=== PATIENT | female | born 1945 | race Caucasian/White ===

== ENCOUNTER → 2019-10-07 15:10 | Outpatient (CLI) | payer MEDICARE, OTHER, SELFPAY ==
[2019-10-07 14:43] VITALS: BMI 42.3
[2019-10-07 16:56] LABS: Absolute Lymphocyte Count 1.97 X10^3/uL (0.83-4.51); Absolute Neutrophil Count 4.1 X10^3/uL (2.0-7.7); Basophil# 0.05 X10^3/uL; Basophil% 0.7 % (0-1); Eosinophil# 0.23 X10^3/uL; Eosinophils% 3.4 % (0-5); Hematocrit 45.6 % (37-47); Hemoglobin 14.7 g/dL (12.0-15.0); Lymphocyte # 1.97 X10^3/ul (4.0); Lymphocyte % 28.9 % (19-41); Mean Corp Hgb Conc 32.2 g/dL (32-36); Mean Corpuscular Hgb 29.1 pg (27.0-32.0); Mean Corpuscular Volume 90.1 fL (81-99); Mean Platelet Vol. 11.5 fl (6.2-12.0); Monocyte# 0.51 X10^3/uL; Monocyte% 7.5 % (0-10); NRBC Flagged by Analyzer 0 % (0-5); Neutrophil # 4.05 X10^3/uL (2.7-7.7); Neutrophil % 59.4 % (47-70); Platelet Count 274 K/mm3 (150-450); RBC Distribution Width CV 12.4 % (11.6-14.6); RBC Distribution Width SD 40.4 fl (35.1-43.9); Red Blood Count 5.06 M/mm3 (4.2-5.4); White Blood Count 6.8 K/mm3 (4.4-11.0)
[2019-10-07 17:13] LABS: Hemoglobin A1c 7.5 % (3.8-5.6)
[2019-10-07 17:17] LABS: ALB/GLOB Ratio 0.9 RATIO (0.9-2.4); AST(SGOT) 20 U/L (15-37); Alanine Aminotransfer ALT/SGPT 30 U/L (13-56); Albumin, Serum 3.5 g/dL (3.2-5.0); Alkaline Phosphatase 111 U/L (45-117); Anion Gap 5 (5-15); BUN 16 mg/dL (7-18); BUN/Creat Ratio 15.7 RATIO (10-20); Calcium,Total 9.7 mg/dL (8.5-10.1); Chloride 98 mmol/L (98-107); Cholesterol 259 mg/dL (200); Creatinine, Serum 1.02 mg/dL (0.55-1.02); EST Glomerular Filtration Rate 56 mL/min (>60); Est Glom Filt Rate - Afr Amer 68 mL/min (>60); Globulin 3.9 g/dL (2.2-4.2); Glucose 244 mg/dL (74-106); High Density Lipoprotein 58 mg/dL; Potassium 4.2 mmol/L (3.5-5.1); Protein, Total 7.4 g/dL (6.4-8.2); Sodium Level 139 mmol/L (136-145); Triglycerides 428 mg/dL
[2019-10-08 08:47] LABS: SARS-COV-2 TOTAL ABS Nonreactive (Nonreactive)
== END ==
PROVIDERS: PCP Family Medicine; Referring Provider Family Medicine; Visit Provider Family Medicine
DX: J20.9 Acute bronchitis, unspecified (principal); R73.9 Hyperglycemia, unspecified; E78.1 Pure hyperglyceridemia; Z20.828 Contact with and (suspected) exposure to other viral communicable diseases
CPT/HCPCS: 36415; 80053; 80061; 83036; 84439; 85025; 86769

== ENCOUNTER → 2019-11-23 14:59 | Outpatient (CLI) | payer MEDICARE, OTHER, SELFPAY ==
[2019-11-23 14:49] VITALS: BMI 42.3
[2019-11-23 17:12] LABS: Glucose 143 mg/dL (74-106)
[2019-11-23 19:18] LABS: Hemoglobin A1c 6.6 % (3.8-5.6)
== END ==
PROVIDERS: PCP Family Medicine; Referring Provider Family Medicine; Visit Provider Family Medicine
DX: E11.9 Type 2 diabetes mellitus without complications (principal); J20.9 Acute bronchitis, unspecified
CPT/HCPCS: 36415; 82947; 83036

== ENCOUNTER 2021-05-09 14:52 | Outpatient (CLI) | payer MEDICARE, OTHER, SELFPAY ==
[2021-05-09 16:52] LABS: AST(SGOT) 19 U/L (15-37); Alanine Aminotransfer ALT/SGPT 30 U/L (13-56); Alkaline Phosphatase 128 U/L (45-117); Anion Gap 4 (5-15); BUN 15 mg/dL (7-18); BUN/Creat Ratio 19.9 RATIO (10-20); Calcium,Total 10.2 mg/dL (8.5-10.1); Chloride 99 mmol/L (98-107); Creatinine, Serum 0.75 mg/dL (0.55-1.02); EST Glomerular Filtration Rate 79 mL/min (>60); Est Glom Filt Rate - Afr Amer 96 mL/min (>60); Globulin 3.9 g/dL (2.2-4.2); Glucose 129 mg/dL (74-106); Hemoglobin A1c 6.7 % (3.8-5.6); Potassium 4.5 mmol/L (3.5-5.1); Protein, Total 7.9 g/dL (6.4-8.2); Sodium Level 136 mmol/L (136-145)
== END 2021-05-09 23:59 | disposition home or self-care (01) ==
LOC: BIMLAB 14:54
PROVIDERS: PCP Family Medicine; Visit Provider Family Medicine
DX: E11.9 Type 2 diabetes mellitus without complications (principal); I10 Essential (primary) hypertension
CPT/HCPCS: 36415; 80053; 83036

== ENCOUNTER → 2022-05-28 | Outpatient (CLI) | payer MEDICARE, OTHER, SELFPAY ==
[2022-05-28 16:46] LABS: Absolute Lymphocyte Count 2.21 X10^3/uL (0.83-4.51); Absolute Neutrophil Count 5.4 X10^3/uL (2.0-7.7); Basophil# 0.07 X10^3/uL; Basophil% 0.8 % (0-1); Eosinophil# 0.24 X10^3/uL; Eosinophils% 2.7 % (0-5); Hematocrit 47.4 % (37-47); Hemoglobin 15.6 g/dL (12.0-15.0); Lymphocyte # 2.21 X10^3/ul (0.83-4.51); Lymphocyte % 25.2 % (19-41); Mean Corp Hgb Conc 32.9 g/dL (32-36); Mean Corpuscular Hgb 29.1 pg (27.0-32.0); Mean Corpuscular Volume 88.4 fL (81-99); Mean Platelet Vol. 11.6 fl (6.2-12.0); Monocyte% 9.1 % (0-10); NRBC Flagged by Analyzer 0 % (0-5); Neutrophil # 5.41 X10^3/uL (2.7-7.7); Neutrophil % 61.6 % (47-70); Platelet Count 308 K/mm3 (150-450); RBC Distribution Width CV 12.4 % (11.6-14.6); RBC Distribution Width SD 40.3 fl (35.1-43.9); Red Blood Count 5.36 M/mm3 (4.2-5.4); White Blood Count 8.8 K/mm3 (4.4-11.0)
[2022-05-28 17:27] LABS: AST(SGOT) 22 U/L (15-37); Alanine Aminotransfer ALT/SGPT 27 U/L (13-56); Albumin, Serum 3.7 g/dL (3.2-5.0); Alkaline Phosphatase 115 U/L (45-117); Anion Gap 7 (5-15); BUN 24 mg/dL (7-18); Chloride 101 mmol/L (98-107); Cholesterol 255 mg/dL (200); Creatinine, Serum 0.77 mg/dL (0.55-1.02); EST Glomerular Filtration Rate 77 mL/min (>60); Est Glom Filt Rate - Afr Amer 93 mL/min (>60); Globulin 3.8 g/dL (2.2-4.2); Glucose 180 mg/dL (74-106); High Density Lipoprotein 55 mg/dL; Protein, Total 7.5 g/dL (6.4-8.2); Sodium Level 137 mmol/L (136-145); Triglycerides 356 mg/dL; Very Low Density Lipoprotein 71 mg/dL (5-40)
== END | disposition home or self-care (01) ==
LOC: BIMLAB 15:53
PROVIDERS: PCP Family Medicine; Referring Provider Family Medicine; Visit Provider Family Medicine
DX: H10.022 Other mucopurulent conjunctivitis, left eye (principal); E11.9 Type 2 diabetes mellitus without complications; I10 Essential (primary) hypertension
CPT/HCPCS: 36415; 80053; 80061; 85025

== ENCOUNTER → 2022-08-14 | Outpatient (CLI) | payer MEDICARE, OTHER, SELFPAY ==
[2022-08-14 13:58] LABS: INR Fingerstick 2.8; Prothrombin Time Fingerstick 30.4 SEC (11.7-14.9)
== END | disposition home or self-care (01) ==
PROVIDERS: PCP Family Medicine; Referring Provider Nurse Practitioner Family; Visit Provider Nurse Practitioner Family
DX: I26.99 Other pulmonary embolism without acute cor pulmonale (principal)
CPT/HCPCS: 36416; 85610

== ENCOUNTER 2022-08-23 13:43 | Outpatient (RCR) | payer MEDICARE, OTHER, SELFPAY ==
[2022-08-23 14:03] LABS: INR Fingerstick 6.1; Prothrombin Time Fingerstick 62.2 SEC (11.7-14.9)
[2022-08-23 15:32] LABS: Prothrombin Time (Protime)PT. 45.8 SECONDS (11.7-14.9)
[2022-08-23 16:41] LABS: International Normalized Ratio 4.8
== END 2022-08-23 18:00 | disposition home or self-care (01) ==
LOC: LAB 13:43
PROVIDERS: PCP Family Medicine; Referring Provider Nurse Practitioner Family; Visit Provider Nurse Practitioner Family
DX: I26.99 Other pulmonary embolism without acute cor pulmonale (principal)
CPT/HCPCS: 36416; 85610

== ENCOUNTER 2022-09-16 12:41 | Outpatient (RCR) | payer MEDICARE, OTHER, SELFPAY ==
[2022-08-26 15:16] LABS: Prothrombin Time (Protime)PT. 40.2 SECONDS (11.7-14.9)
[2022-08-26 15:53] LABS: International Normalized Ratio 4.1
[2022-08-29 11:36] LABS: INR Fingerstick 4.6
[2022-09-02 13:06] LABS: International Normalized Ratio 1.2; Prothrombin Time (Protime)PT. 15.3 SECONDS (11.7-14.9)
[2022-09-09 11:15] LABS: INR Fingerstick 2.1; Prothrombin Time Fingerstick 23.5 SEC (11.7-14.9)
[2022-09-16 12:47] LABS: INR Fingerstick 2.4; Prothrombin Time Fingerstick 26.1 SEC (11.7-14.9)
== END 2022-09-23 18:00 | disposition home or self-care (01) ==
LOC: LAB 12:41
PROVIDERS: PCP Family Medicine; Referring Provider Nurse Practitioner Family; Visit Provider Nurse Practitioner Family
DX: I26.99 Other pulmonary embolism without acute cor pulmonale (principal)
CPT/HCPCS: 36415; 36416; 85610

== ENCOUNTER 2022-10-14 12:06 | Outpatient (RCR) | payer MEDICARE, OTHER, SELFPAY ==
[2022-10-07 10:25] LABS: International Normalized Ratio 1.9; Prothrombin Time (Protime)PT. 22.4 SECONDS (11.7-14.9)
[2022-10-14 12:18] LABS: INR Fingerstick 2.3; Prothrombin Time Fingerstick 25.5 SEC (11.7-14.9)
== END 2022-10-14 18:00 | disposition home or self-care (01) ==
LOC: LAB 12:06
PROVIDERS: Nurse Practitioner Family; PCP Family Medicine; Referring Provider Family Medicine; Visit Provider Family Medicine
DX: I26.99 Other pulmonary embolism without acute cor pulmonale (principal)
CPT/HCPCS: 36415; 36416; 85610

== ENCOUNTER 2022-11-18 14:10 | Outpatient (RCR) | payer MEDICARE, OTHER, SELFPAY ==
[2022-10-30 13:39] LABS: International Normalized Ratio 1.9; Prothrombin Time (Protime)PT. 21.8 SECONDS (11.7-14.9)
[2022-11-18 14:33] LABS: INR Fingerstick 2.4
== END 2022-11-18 18:00 | disposition home or self-care (01) ==
LOC: LAB 14:10
PROVIDERS: PCP Family Medicine; Referring Provider Family Medicine; Visit Provider Family Medicine
DX: Z79.01 Long term (current) use of anticoagulants (principal); I26.99 Other pulmonary embolism without acute cor pulmonale
CPT/HCPCS: 36415; 36416; 85610

== ENCOUNTER 2022-12-16 14:55 | Outpatient (RCR) | payer MEDICARE, OTHER, SELFPAY ==
[2022-12-16 15:14] LABS: INR Fingerstick 1.9; Prothrombin Time Fingerstick 20.7 SEC (11.7-14.9)
== END 2022-12-16 18:00 | disposition home or self-care (01) ==
LOC: LAB 14:55
PROVIDERS: PCP Family Medicine; Referring Provider Family Medicine; Visit Provider Family Medicine
DX: Z79.01 Long term (current) use of anticoagulants (principal)
CPT/HCPCS: 36416; 85610

== ENCOUNTER → 2022-12-31 | Outpatient (CLI) | payer MEDICARE, OTHER, SELFPAY ==
[2022-12-31 16:46] LABS: Cholesterol 266 mg/dL (200); High Density Lipoprotein 68 mg/dL; Triglycerides 337 mg/dL; Very Low Density Lipoprotein 67 mg/dL (5-40)
[2022-12-31 16:46] LABS: International Normalized Ratio 1.6
[2022-12-31 16:50] LABS: Hemoglobin A1c 7.2 % (3.8-5.6)
== END | disposition home or self-care (01) ==
LOC: BIMLAB 15:17
PROVIDERS: PCP Family Medicine; Referring Provider Family Medicine; Visit Provider Family Medicine
DX: E11.9 Type 2 diabetes mellitus without complications (principal); I26.99 Other pulmonary embolism without acute cor pulmonale; I10 Essential (primary) hypertension
CPT/HCPCS: 36415; 80061; 83036; 85610

== ENCOUNTER 2023-02-19 14:07 | Outpatient (RCR) | payer MEDICARE, OTHER, SELFPAY ==
[2023-01-27 13:08] LABS: INR Fingerstick 1.9; Prothrombin Time Fingerstick 21.1 SEC (11.7-14.9)
[2023-02-10 13:29] LABS: INR Fingerstick 1.8
[2023-02-19 14:13] LABS: INR Fingerstick 2.8; Prothrombin Time Fingerstick 30.5 SEC (11.7-14.9)
== END 2023-02-23 18:00 | disposition home or self-care (01) ==
LOC: LAB 14:07
PROVIDERS: PCP Family Medicine; Referring Provider Family Medicine; Visit Provider Family Medicine
DX: Z79.01 Long term (current) use of anticoagulants (principal)
CPT/HCPCS: 36416; 85610

== ENCOUNTER 2023-03-19 15:39 | Outpatient (RCR) | payer MEDICARE, OTHER, SELFPAY ==
[2023-03-19 16:59] LABS: Prothrombin Time (Protime)PT. 12.9 SECONDS (11.7-14.9)
== END 2023-03-19 18:00 | disposition home or self-care (01) ==
LOC: LAB 15:39
PROVIDERS: PCP Family Medicine; Referring Provider Family Medicine; Visit Provider Family Medicine
DX: Z79.01 Long term (current) use of anticoagulants (principal)
CPT/HCPCS: 36415; 36416; 85610

== ENCOUNTER 2023-04-07 08:38 | Outpatient (RCR) | payer MEDICARE, OTHER, SELFPAY ==
[2023-04-07 08:46] LABS: INR Fingerstick 1.9; Prothrombin Time Fingerstick 20.1 SEC (11.7-14.9)
== END 2023-04-24 18:00 | disposition home or self-care (01) ==
LOC: LAB 08:38
PROVIDERS: PCP Family Medicine; Referring Provider Family Medicine; Visit Provider Family Medicine
DX: Z79.01 Long term (current) use of anticoagulants (principal)
CPT/HCPCS: 36416; 85610

== ENCOUNTER 2023-05-19 14:05 | Outpatient (RCR) | payer MEDICARE, OTHER, SELFPAY ==
[2023-05-21 09:32] LABS: INR Fingerstick 2.3
== END 2023-05-24 18:00 | disposition home or self-care (01) ==
LOC: LAB 14:05
PROVIDERS: PCP Family Medicine; Referring Provider Family Medicine; Visit Provider Family Medicine
DX: Z79.01 Long term (current) use of anticoagulants (principal)
CPT/HCPCS: 36416; 85610

== ENCOUNTER → 2023-06-17 | Outpatient (CLI) | payer MEDICARE, OTHER, SELFPAY | END | disposition home or self-care (01) | LOC: PSN 12:20 | PROVIDERS: PCP Family Medicine; Referring Provider Nurse Practitioner; Visit Provider Nurse Practitioner | DX: R05.3 Chronic cough (principal) | CPT/HCPCS: 94060; 94726; 94729 ==

== ENCOUNTER 2023-07-02 12:11 | Outpatient (RCR) | payer MEDICARE, OTHER, SELFPAY ==
[2023-07-02 12:32] LABS: INR Fingerstick 2.3; Prothrombin Time Fingerstick 23.4 SEC (11.7-14.9)
== END 2023-07-02 18:00 | disposition home or self-care (01) ==
LOC: LAB 12:11
PROVIDERS: PCP Family Medicine; Referring Provider Family Medicine; Visit Provider Family Medicine
DX: Z79.01 Long term (current) use of anticoagulants (principal)
CPT/HCPCS: 36416; 85610

== ENCOUNTER 2023-07-31 15:50 | Outpatient (RCR) | payer MEDICARE, OTHER, SELFPAY ==
[2023-07-31 16:18] LABS: INR Fingerstick 2.4; Prothrombin Time Fingerstick 24.7 SEC (11.7-14.9)
== END 2023-07-31 18:00 | disposition home or self-care (01) ==
LOC: LAB 15:50
PROVIDERS: PCP Family Medicine; Referring Provider Family Medicine; Visit Provider Family Medicine
DX: Z79.01 Long term (current) use of anticoagulants (principal)
CPT/HCPCS: 36416; 85610

== ENCOUNTER 2023-09-04 13:28 | Outpatient (RCR) | payer MEDICARE, OTHER, SELFPAY ==
[2023-09-08 06:08] LABS: INR Fingerstick 2.2; Prothrombin Time Fingerstick 22.6 SEC (11.7-14.9)
== END 2023-09-24 18:00 | disposition home or self-care (01) ==
LOC: LAB 13:28
PROVIDERS: PCP Family Medicine; Referring Provider Family Medicine; Visit Provider Family Medicine
DX: Z79.01 Long term (current) use of anticoagulants (principal)
CPT/HCPCS: 36416; 85610

== ENCOUNTER → 2023-09-08 | Outpatient (CLI) | payer MEDICARE, OTHER, SELFPAY ==
--- NOTE | 2023-09-08 15:45 | RAD_ITS ---
STUDY: X-RAY CHEST REASON FOR EXAM: Female, 77 years old. chronic cough TECHNIQUE: PA and lateral views of the chest. COMPARISON: None. FINDINGS: The lungs are clear and expanded. There is no demonstrated pleural abnormality. Normal size heart. Normal mediastinum and katerine. Normal visualized pulmonary arteries. Normal visualized aortic arch and descending thoracic aorta. Normal visualized thoracic spine. Normal visualized ribs, clavicles, and shoulders. There is no demonstrated abnormality of the visualized soft tissue structures of the upper abdomen. RAD/Chest PA and Lateral IMPRESSION: Normal x-ray examination of the chest. Electronically Signed: Allen Cabral MD at 18:20 EDT ,
[2023-09-08 16:45] LABS: ALB/GLOB Ratio 0.7 RATIO (0.9-2.4); AST(SGOT) 13 U/L (15-37); Alanine Aminotransfer ALT/SGPT 20 U/L (13-56); Albumin, Serum 2.9 g/dL (3.2-5.0); Alkaline Phosphatase 131 U/L (45-117); Anion Gap 7 (5-15); BUN 14 mg/dL (7-18); BUN/Creat Ratio 23.1 RATIO (10-20); Calcium,Total 9.2 mg/dL (8.5-10.1); Chloride 104 mmol/L (98-107); Creatinine, Serum 0.61 mg/dL (0.55-1.02); EST Glomerular Filtration Rate 101 mL/min (>60); Est Glom Filt Rate - Afr Amer 122 mL/min (>60); Glucose 177 mg/dL (74-106); Potassium 3.4 mmol/L (3.5-5.1); Protein, Total 6.9 g/dL (6.4-8.2); Sodium Level 139 mmol/L (136-145)
== END | disposition home or self-care (01) ==
LOC: LAB 15:19
PROVIDERS: PCP Family Medicine; Referring Provider Family Medicine; Visit Provider Family Medicine
DX: R05.3 Chronic cough (principal)
CPT/HCPCS: 36415; 71046; 80053

== ENCOUNTER 2023-10-28 15:03 | Outpatient (RCR) | payer MEDICARE, OTHER, SELFPAY ==
[2023-10-28 15:17] LABS: INR Fingerstick 2.8; Prothrombin Time Fingerstick 28.7 SEC (11.7-14.9)
== END 2023-10-28 18:00 | disposition home or self-care (01) ==
LOC: LAB 15:03
PROVIDERS: PCP Family Medicine; Referring Provider Family Medicine; Visit Provider Family Medicine
DX: Z79.01 Long term (current) use of anticoagulants (principal)
CPT/HCPCS: 36416; 85610

== ENCOUNTER 2023-12-15 12:44 | Outpatient (RCR) | payer MEDICARE, OTHER, SELFPAY ==
[2023-11-25 11:32] LABS: INR Fingerstick 2.9; Prothrombin Time Fingerstick 29.3 SEC (11.7-14.9)
[2023-12-25 12:07] LABS: INR Fingerstick 2.7; Prothrombin Time Fingerstick 28.4 SEC (11.7-14.9)
== END 2023-12-15 18:00 | disposition home or self-care (01) ==
LOC: LAB 12:44
PROVIDERS: PCP Family Medicine; Referring Provider Family Medicine; Visit Provider Family Medicine
DX: Z79.01 Long term (current) use of anticoagulants (principal); I26.99 Other pulmonary embolism without acute cor pulmonale
CPT/HCPCS: 36416; 85610

== ENCOUNTER 2024-02-03 13:47 | Outpatient (RCR) | payer MEDICARE, OTHER, SELFPAY ==
[2024-02-03 14:14] LABS: INR Fingerstick 1.1; Prothrombin Time Fingerstick 13.1 SEC (11.7-14.9)
== END 2024-02-03 18:00 | disposition home or self-care (01) ==
LOC: LAB 13:47
PROVIDERS: PCP Family Medicine; Referring Provider Family Medicine; Visit Provider Family Medicine
DX: Z79.01 Long term (current) use of anticoagulants (principal)

== ENCOUNTER → 2024-03-02 | Outpatient (CLI) | payer MEDICARE, OTHER, SELFPAY ==
[2024-03-02 15:21] LABS: Absolute Lymphocyte Count 1.86 X10^3/uL (0.83-4.51); Absolute Neutrophil Count 5.5 X10^3/uL (2.0-7.7); Basophil# 0.06 X10^3/uL; Basophil% 0.7 % (0-1); Eosinophil# 0.16 X10^3/uL; Eosinophils% 1.9 % (0-5); Hemoglobin 9.3 g/dL (12.0-15.0); Lymphocyte # 1.86 X10^3/ul (0.83-4.51); Lymphocyte % 22.6 % (19-41); Mean Corp Hgb Conc 29.1 g/dL (32-36); Mean Corpuscular Hgb 21.7 pg (27.0-32.0); Mean Corpuscular Volume 74.6 fL (81-99); Mean Platelet Vol. 10.4 fl (6.2-12.0); Monocyte# 0.57 X10^3/uL; Monocyte% 6.9 % (0-10); NRBC Flagged by Analyzer 0 % (0-5); Neutrophil # 5.54 X10^3/uL (2.7-7.7); Neutrophil % 67.5 % (47-70); Platelet Count 556 K/mm3 (150-450); RBC Distribution Width CV 16.4 % (11.6-14.6); Red Blood Count 4.29 M/mm3 (4.2-5.4); White Blood Count 8.2 K/mm3 (4.4-11.0)
[2024-03-02 15:48] LABS: ALB/GLOB Ratio 0.6 RATIO (0.9-2.4); AST(SGOT) 18 U/L (15-37); Alanine Aminotransfer ALT/SGPT 20 U/L (13-56); Albumin, Serum 2.5 g/dL (3.2-5.0); Alkaline Phosphatase 156 U/L (45-117); Anion Gap 6 (5-15); BUN 16 mg/dL (7-18); Calcium,Total 8.8 mg/dL (8.5-10.1); Chloride 102 mmol/L (98-107); EST Glomerular Filtration Rate 86 mL/min (>60); Est Glom Filt Rate - Afr Amer 105 mL/min (>60); Globulin 4.3 g/dL (2.2-4.2); Glucose 165 mg/dL (74-106); Potassium 3.7 mmol/L (3.5-5.1); Protein, Total 6.8 g/dL (6.4-8.2); Sodium Level 138 mmol/L (136-145)
== END | disposition home or self-care (01) ==
LOC: BIMLAB 13:45
PROVIDERS: PCP Family Medicine; Referring Provider Family Medicine; Visit Provider Family Medicine
DX: R05.3 Chronic cough (principal); D64.9 Anemia, unspecified
CPT/HCPCS: 36415; 80053; 85025

== ENCOUNTER 2024-06-11 20:48 | Emergency (ER) | payer MEDICARE, OTHER, SELFPAY ==
[2024-06-11 20:49] VITALS: BP 129/70; PULSE 130; RESP 18; TEMP 37.3; O2SAT 93
[2024-06-11 20:53] VITALS: BP 129/70; PULSE 130; RESP 18; TEMP 37.3; O2SAT 93
[2024-06-11 21:04] VITALS: BMI 32.7
[2024-06-11 21:53] VITALS: BP 107/65; PULSE 101; RESP 18; TEMP 36.8; O2SAT 93
--- NOTE | 2024-06-11 22:08 | CT_ITS ---
PROCEDURE: ABDOMEN/PELVIS W IV CONT ONLY 06/11/2024 REASON FOR EXAM: FLANK PAIN / ? PYELONEPHRITIS TECHNIQUE: Abdomen and pelvis CT with intravenous contrast. Coronal and Sagittal reconstruction series were provided. PATIENT PREPARATION: Per protocol ORAL CONTRAST TYPE: None. AMOUNT: mL CONTRAST: Isovue 370 VOLUME: 96 mL Not Provided Gauge IV One or more dose reduction techniques were used (e.g., Automated exposure control, adjustment of the mA and/or kV according to patient size, use of iterative reconstruction technique. RADIATION DOSE SUMMARY: CTDlvol: 46 mGy DLP: 1629 mGycm COMPARISON: None FINDINGS: Lung bases: Suspected filling defects within the left lower lobe pulmonary arteries, concerning for PE. In addition there is evidence of a left lower lobe consolidation with an ill-defined low attenuating lesion, underlying nodule can not be excluded. CTA of the chest is recommended for further characterization. Liver: Normal size. No mass. Gallbladder: Distended gallbladder, no radiographic evidence of stones. Spleen: Normal size. Pancreas: Tiny parenchymal calcifications, likely sequela of chronic pancreatitis. Adrenals: Unremarkable Kidneys: Right kidney demonstrates multiple parenchymal low attenuating lesions, some of which are too small to characterize, the largest is a lower pole cyst with a Hounsfield unit of 17, consistent with benign cysts. No follow-up is recommended. Mild bilateral perinephric stranding. The left kidney demonstrates multiple tiny exophytic low attenuating lesions, too small to characterize. No evidence of hydronephrosis or nephrolithiasis bilaterally. Bladder: Decompressed urinary bladder. Reproductive Organs: Normal uterine size and contour. Ovaries are unremarkable. Bowel: Evaluation of the bowel loops are limited due to lack of oral contrast. The stomach is decompressed limiting evaluation. No inflammatory changes of the small bowel. Focal irregular wall thickening of the cecum and ascending colon, concerning for malignancy. Alternatively this may represent focal colitis. Appendix: The appendix is not clearly visualized. Lymph nodes: Prominent retroperitoneal lymph nodes. Prominent right lower quadrant lymph nodes. Vasculature: Atherosclerotic calcification of the abdominal aorta and branches. Peritoneum / Retroperitoneum: No free air or free fluid. Soft tissue: Small fat containing bilateral inguinal hernias. Bones: Unremarkable CT/Abdomen/Pelvis W IV Cont ONLY IMPRESSION: Suspected pulmonary embolism of the left lower lobe pulmonary artery as describ ed above, recommend CTA of the chest for further characterization. Left lower lobe consolidation with an ill-defined low attenuating lesion, this may be secondary to infection versus atelectasis. Underlying nodule can not be excluded. Focal irregular wall thickening of the cecum and ascending colon with luminal n arrowing, suggestive of neoplasm. Barium enema and colonoscopy is recommended for further characterization. In addition GI co nsultation is recommended. Alternatively this may also represent colitis. No radiographic evidence of nephrolithiasis or pyelonephritis. Red Alert: Findings are suspected left lower lobe pulmonary artery and suspecte d neoplasm of the cecum and ascending colon. The critical information above was relayed directly by me by telephone to Rodriguez Braxton on 06/11/2024 at 11:38 pm with readback verification. Recommend CTA of the chest and colonoscopy/barium enema. Reading Location: [facility]
--- NOTE | 2024-06-11 22:08 | EKG12_ITS ---
Test Reason : FLANK PAIN Blood Pressure : */* mmHG Vent. Rate : 103 BPM Atrial Rate : 103 BPM P-R Int : 148 ms QRS Dur : 90 ms QT Int : 340 ms P-R-T Axes : 17 -6 47 degrees QTcB Int : 445 ms Sinus tachycardia Inferior infarct , age undetermined Abnormal ECG Confirmed by KORY THAKUR MD ([id number]), fan mail editor NADER KIM ([id number]) on 06/14/2024 8:45:03 AM Referred By: Confirmed By: KORY THAKUR MD
[2024-06-11] MEDS: 0.9% Normal Saline (1000mL) 1,000 ML 999 ML IV (22:19)
[2024-06-11 22:22] LABS: Absolute Lymphocyte Count 1.45 X10^3/uL (0.83-4.51); Absolute Neutrophil Count 12.8 X10^3/uL (2.0-7.7); Basophil# 0.06 X10^3/uL; Basophil% 0.4 % (0-1); Eosinophil# 0.12 X10^3/uL; Eosinophils% 0.7 % (0-5); Hematocrit 40.6 % (37-47); Hemoglobin 13.8 g/dL (12.0-15.0); Lymphocyte # 1.45 X10^3/ul (0.83-4.51); Lymphocyte % 9.1 % (19-41); Mean Corpuscular Hgb 28.6 pg (27.0-32.0); Mean Corpuscular Volume 84.2 fL (81-99); Mean Platelet Vol. 10.8 fl (6.2-12.0); Monocyte# 1.49 X10^3/uL; Monocyte% 9.3 % (0-10); NRBC Flagged by Analyzer 0 % (0-5); Neutrophil # 12.82 X10^3/uL (2.7-7.7); Platelet Count 363 K/mm3 (150-450); RBC Distribution Width CV 13.3 % (11.6-14.6); RBC Distribution Width SD 39.6 fl (35.1-43.9); Red Blood Count 4.82 M/mm3 (4.2-5.4)
[2024-06-11 22:48] VITALS: BP 107/65
[2024-06-11 22:48] LABS: Anion Gap 14 (5-15); BUN 16 mg/dL (4-19); BUN/Creat Ratio 22.6 RATIO (10-20); Calcium,Total 9.1 mg/dL (7.6-11.0); Carbon Dioxide 21.5 mmol/L (21.0-32.0); Chloride 97 mmol/L (98-108); EST Glomerular Filtration Rate 88 (>60); Estimated Creatinine Clearance 56.29 ml/min (50-250); Glucose 169 mg/dL (70-99); Magnesium 1.8 mg/dL (1.5-2.2); Potassium 3.3 mmol/L (3.3-5.1); Sodium Level 133 mmol/L (133-145)
[2024-06-11 22:52] VITALS: BP 107/65; PULSE 98; RESP 16; TEMP 36.8; O2SAT 92
--- NOTE | 2024-06-11 23:05 | RAD_ITS ---
PROCEDURE: CHEST 1 VIEW (PORTABLE) 06/11/2024 REASON FOR EXAM: COUGH TECHNIQUE: Frontal view of the chest. COMPARISON: None FINDINGS: Hardware: None Heart: The heart size is normal. Lungs: Left basilar consolidation. Bones: The bones are unremarkable. Other: RAD/Chest 1 View (Portable) IMPRESSION: Left basilar consolidation. CTA of the chest is recommended. Reading Location: [facility]
[2024-06-11 23:09] LABS: Lactic Acid 1.1 mmol/L (0.0-2.0)
[2024-06-11 23:24] LABS: Red Blood Cells-Urine 0 SEEN /hpf (0-5)
[2024-06-11 23:31] LABS: Color, Urine Yellow (Yellow); Glucose, Dipstick Normal (Normal); Ketone-Dipstick Negative (Negative); Leukocyte Esterase-Dipstick 25 /ul (Negative); Nitrite-Dipstick Negative (Negative); Occult Blood-Urine 10 /ul (Negative); Protein-Dipstick 30 mg/dl (Negative); Urine Bilirubin Dipstick 1 mg/dL (Negative); Urine Clarity Clear (Clear); Urine Urobilinogen 4 mg/dl (Normal)
[2024-06-12] VITALS: BP 122/68; PULSE 104; RESP 19; TEMP 36.9; O2SAT 98
[2024-06-12 00:04] LABS: Bacteria 2+ /hpf (None Seen); Mucous, Urine RARE /hpf (<or=2+); Squamous Epithelial Cells - UA 25-50 SEEN /hpf (5-10); White Blood Cells 5-10 SEEN /hpf (0-5)
[2024-06-12 00:41] LABS: International Normalized Ratio 1.4
[2024-06-12 00:42] LABS: Partial Thromboplast Time 38.9 Seconds (24.1-36.2)
[2024-06-12 00:58] VITALS: BP 105/62; PULSE 98; RESP 18; TEMP 37; O2SAT 93
[2024-06-12 01:00] VITALS: BP 109/61; PULSE 98; RESP 18; TEMP 37; O2SAT 94
[2024-06-12 02:00] VITALS: BP 110/66; PULSE 91; RESP 19; TEMP 37.1; O2SAT 97
[2024-06-12 03:00] VITALS: BP 114/60; PULSE 108; RESP 16; TEMP 37.1; O2SAT 98
--- NOTE | 2024-06-12 03:15 | EDS_ITS ---
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 She states over the pa st 4 to 5 days she has had generalized weakness. She lives with her grandson and grandson reports is been difficult for her to get up and ambulate on her own. She states she went to an outside hospital and the other day and was diagnosed with a urinary tract infection. She states she took the antibiotic as directed but there has been no improvement and with this comes in for evaluation. Patient does note there has been intermittent left-sided flank/back pain as well without history or report of trauma [facility] Medical History (Updated 06/13/24 @ 17:[address] Rodriguez Braxton, ) Pneumonia Osteoarthritis High triglycerides High cholesterol Arthritis Home Medications ?Medication ?Instructions ?Recorded ?Last Taken ?Type blood pressure monitor #1 ea 06/02/23 Unknown Rx venlafaxine 37.5 mg tablet 37.5 mg PO QDAY #90 tabs Unknown Rx atorvastatin 40 mg tablet See Rx Instructions .Route 0 08/19/23 Unknown Rx .COMPLEX #90 tabs chlordiazepoxide HCl 5 mg capsule 10 mg (2 x 5 mg) PO Q12H PRN 12/24/23 Unknown Rx anxiety #60 caps apixaban 2.5 mg tablet (Eliquis) 2.5 mg PO BID #180 ta bs 02/04/24 Unknown Rx amlodipine 5 mg tablet 5 mg PO DAILY #90 tabs 03/23 Unknown Rx betamethasone dipropionate 0.05 % 1 applic topical EVAN LY PRN rash 03/23/24 Unknown Rx topical cream #45 grams ferrous sulfate 325 mg (65 mg 650 mg PO QDAY 03/23/24 Unknown History iron) tablet (Feosol) handicap placard #1 ea 05/26/24 Unknown Rx cephalexin 250 mg capsule 250 mg PO 4X/DAY 06/11/24 Un known History meclizine 25 mg tablet 25 mg PO BID PRN dizziness 0 06/12/24 Unknown History Allergy/AdvReac Type Severity Reaction Status Date / Time prednisone Allergy Unknown Rash Verified 06/11/24 20:49 diphenhydramine (From Allergy Rash Verified 06/11/24 20:49 Benadryl) Family History Mother Arthritis Brother Myocardial infarction Father Heart disease Surgical History History of bilateral knee replacement History of umbilical hernia repair History of tonsillectomy Social History Smoking Status: Never smoker alcohol intake: never substance use type: does not use what type of physical activity do you participate in: swimming ROS ROS ED Constitutional Constitutional ED: Reports other Details: Positive generalized weakness ; Denies chills or fever(s) Eyes Eyes: Denies change in vision ENT ENT ED: Denies sore throat Cardiovascular Cardiovascular: Reports racing heartbeat; Denies chest pain Respiratory/Chest Respiratory/Chest: Denies cough or dyspnea Gastrointestinal Gastrointestinal: Denies abdominal pain, diarrhea, nausea or vomiting Genitourinary Genitourinary ED: Reports urinary frequency; Denies dysuria Musculoskeletal Musculoskeletal: Reports back pain Integumentary Denies rash Neurologic Neurologic: Denies headache(s) Hematologic/Lymphatic Hematologic/Lymphatic: Reports easy bleeding and easy bruising EXAM Physical Exam Const Vital Signs: 06/11/24 20:49 06/11/24 20:53 06/11/24 21:53 Temperature 99.2 F H 99.2 F H 98.3 F Temperature Source Temporal Oral Oral Pulse Rate 130 H 130 H 101 H Respiratory Rate 18 18 18 Blood Pressure 129/70 H 129/70 H 107/65 Blood Pressure Mean 89 89 79 Pulse Ox 93 93 93 Oxygen Delivery Method Room Air Room Air Room Air 06/11/24 22:48 06/11/24 22:52 06/12/24 00:00 Temperature 98.3 F 98.4 F Temperature Source Oral Oral Pulse Rate 98 104 H Respiratory Rate 16 19 H Blood Pressure 107/65 107/65 122/68 H Blood Pressure Mean 79 79 86 Pulse Ox 92 98 Oxygen Delivery Method Room Air Room Air 06/12/24 00:58 06/12/24 01:00 06/12/24 02:00 Temperature 98.6 F 98.6 F 98.7 F Temperature Source Oral Oral Pulse Rate 98 98 91 Respiratory Rate 18 18 19 H Blood Pressure 105/62 109/61 110/66 Blood Pressure Mean 76 77 80 Pulse Ox 93 94 97 Oxygen Delivery Method Room Air Room Air 06/12/24 03:00 Temperature 98.7 F Temperature Source Oral Pulse Rate 108 H Respiratory Rate 16 Blood Pressure 114/60 Blood Pressure Mean 78 Pulse Ox 98 Oxygen Delivery Method Room Air Positive well nourished and well developed General Appearance ED: well developed; Negative for pallor HEENT Reports dry mucous membranes HEENT Narrative: Normocephalic atraumatic No tongue or lip swelling no oral lesions no airway edema or compromise No signs of infection noted in the posterior pharynx Mucous membranes are mildly dry and tacky Mouth ED: Yes dry mucous membranes Mouth: dry mucous membranes Eyes PERRL and EOMs intact bilaterally General Eye ED: Negative for scleral icterus Neck supple Neck Narrative: No nuchal rigidity or meningeal signs Resp normal respiratory effort and clear to auscultation bilaterally Resp Narrative: Breath sounds are slight diminished throughout but overall clear to auscultation without signs of respiratory distress Cardio regular rhythm Rate: tachycardic and other Other Details: Tachycardic rate with regular rhythm Radial and carotid pulses are equal and symmetric GI normal to inspection, nondistended, normoactive bowel sounds, non-tender, non- distended and no masses GI Narrative: Abdomen is soft nontender and nondistended with normal active bowel sounds. No voluntary guarding or rigidity or pulsatile mass. No increased tympany or fluid wave noted. Auscultation: normoactive bowel sounds Palpation: soft Back/Spine Back/Spine Narrative: There is mild left CVA tenderness present No bony deformity or step-off of the thoracic or lumbar spine no midline tenderness to palpation No saddle anesthesia, negative straight leg raise, no clonus or Babinski, patellar reflexes are plus 1 out of 4 bilaterally No overlying soft tissue changes to suggest trauma or infection Extremity normal to inspection Neuro oriented x3, CN's II-XII intact bilaterally and no sensory deficits noted Sensorium / Orientation: alert Motor Exam: strength 5/5 throughout Psych mental status grossly normal Skin no rashes or lesions noted and No skin turgor normal Skin Narrative: Skin turgor slightly increased otherwise skin exam is normal. General Skin Exam: Negative for jaundice or pallor MDM MDM MDM Narrative Medical decision making narrative: Patient arrived to the ER tachycardic but otherwise with stable vitals. She reported generalized weakness with vague left-sided back/flank pain. There is been no loss of bowel or bladder control or IV drug use going against cauda equina or epidural abscess. There is no overlying soft tissue changes to suggest cellulitis or shingles or abscess or potential fracture or trauma. She may have pyelonephritis with her recent diagnosis of UTI from the outside hospital. With her tachycardia there is concern for acute kidney injury causing her weakness as well. The patient had physical exam findings of dehydration and therefore was given 1 L of normal saline. After receiving this her heart rate normalized. Her physical exam showed leukocytosis at 16 but there was no elevation to her lactic acid value and no signs of KOLBY. I did obtain a CT scan of the abdomen and pelvis to rule out signs of pyelonephritis or kidney stone or atypical intestinal infection as a cause of her left-sided pain. CT scan showed no sign of stone or intestinal infection but did document changes to the right colon concerning for malignancy and there was question of a potentially nonvisualized left lower lobe PE. She does have a history of this and is on Eliquis so concern for a secondary PE is low but a CTA was then added based on this concern. The CTA revealed no PE but signs of potential lobe collapse or mass. I had the patient evaluated by the hospitalist based on her findings and weakness and there was discussion about a potential admission. The patient states she is known about the potential malignancy in her chest and intestine for multiple months and has decided not to undergo further investigation of it. She was able to ambulate to and from the bathroom with a steady gait under her own power. There was still discussions of admission secondary to her dehydration changes but symptoms have improved after 1 L of fluid and there is no signs of KOLBY. Therefore it was felt that if she was admitted she most likely will stay in the hospital for 1 day and be discharged with report of needing outpatient rehab but not inpatient. This plan of care was discussed with the patient and family and at this time they state as she is able to walk under her own power they will take her home and return if symptoms continue to progress despite the hydration and antibiotics. History & Record Review Discussion w/independent historian: Patient and Family Lab Data Attestation: I reviewed the patient's lab results. Labs: Laboratory Results - last 24 hr 06/11/24 06/11/24 06/11/24 00:10 21:03 22:15 WBC 16.0 H RBC 4.82 Hgb 13.8 Hct 40.6 MCV 84.2 MCH 28.6 MCHC 34.0 RDW Std Deviation 39.6 RDW Coeff of [place] 13.3 Plt Count 363 MPV 10.8 Immature Gran % (Auto) 0.500 Neut % (Auto) 80.0 H Lymph % (Auto) 9.1 L [place] % (Auto) 9.3 Eos % (Auto) 0.7 Baso % (Auto) 0.4 Absolute Neuts (auto) 12.8 H Absolute Lymphs (auto) 1.45 Nucleated RBC % 0 PT 17.0 H INR 1.4 APTT 38.9 H Sodium 133 Potassium 3.3 Chloride 97 L Carbon Dioxide 21.5 Anion Gap 14 BUN 16 Creatinine 0.70 Estim Creat Clear Calc 56.29 Est GFR (MDRD) Non-Af 88 BUN/Creatinine Ratio 22.6 H Glucose 169 H Lactic Acid 1.1 Calcium 9.1 Magnesium 1.8 Urine Color Urine Clarity Urine pH Ur Specific [place] Urine Protein Urine Glucose (UA) Urine Ketones Urine Occult Blood Urine Nitrite Urine Bilirubin Urine Urobilinogen Ur Leukocyte Esterase Urine RBC Urine WBC Ur Squamous Epith Cells Urine Bacteria Urine Mucus 06/11/24 23:20 WBC RBC Hgb Hct MCV MCH MCHC RDW Std Deviation RDW Coeff of [place] Plt Count MPV Immature Gran % (Auto) Neut % (Auto) Lymph % (Auto) [place] % (Auto) Eos % (Auto) Baso % (Auto) Absolute Neuts (auto) Absolute Lymphs (auto) Nucleated RBC % PT INR APTT Sodium Potassium Chloride Carbon Dioxide Anion Gap BUN Creatinine Estim Creat Clear Calc Est GFR (MDRD) Non-Af BUN/Creatinine Ratio Glucose Lactic Acid Calcium Magnesium Urine Color Yellow Urine Clarity Clear Urine pH 5.0 Ur Specific [place] 1.010 Urine Protein 30 H Urine Glucose (UA) Normal Urine Ketones Negative Urine Occult Blood 10 H Urine Nitrite Negative Urine Bilirubin 1 H Urine Urobilinogen 4 H Ur Leukocyte Esterase 25 H Urine RBC 0 SEEN Urine WBC 5-10 SEEN Ur Squamous Epith Cells 25-50 SEEN Urine Bacteria 2+ Urine Mucus RARE Radiography Diagnostic Testing: Clinical Impression(s) from Imaging Studies Chest CTA 06/12/24 23:46 IMPRESSION: No evidence of filling defect to suggest pulmonary embolism. Densely consolidated large portion of the left lower lobe as above with airway obstruction/opacification concerning for possible inflammatory/infectious process or neoplastic process not excluded. Clinically correlate, recommend pulmonary consult and requires further workup. Expansile lytic lesion of the right acromion with areas of cortical disruption for example axial 232 concerning for neoplastic process and associated pathologic fracture. Subjacent areas of right clavicle lytic appearing foci axial 233. Mildly enlarged subcarinal lymph node and possibly mildly large left hilar nodes. May be reactive with neoplastic process not excluded, follow-up to resolution. Reading Location: [facility] Management Discussion w/another healthcare provider: Hospitalist Discharge Plan Triage Chief Complaint: Flank Pain ED Provider: Rodriguez Braxton Dx/Rx/DC Orders Clinical Impression: Generalized weakness, Dehydration, Hypertension, Current use of terminal superintendent anticoagulation Instructions: Dehydration, ED Weakness Uncertain Cause Prescriptions: No Action (DME) blood pressure monitor Kit See Rx Instructions .ROUTE .MEDSUPPLY Qty: 1 0RF Rx Instructions: As directed atorvastatin 40 mg tablet See Rx Instructions .ROUTE .COMPLEX Qty: 90 2RF Dose Instruction: TAKE 1 TABLET DAILY Rx Instructions: TAKE 1 TABLET DAILY Eliquis 2.5 mg tablet 2.5 mg PO BID Qty: 180 1RF ferrous sulfate [Feosol] 325 mg (65 mg iron) tablet 650 mg PO QDAY amlodipine 5 mg tablet 5 mg PO DAILY Qty: 90 1RF betamethasone dipropionate 0.05 % cream 1 applic TOPICAL DAILY PRN (Reason: rash) Qty: 45 1RF cephalexin 250 mg capsule 250 mg PO 4X/DAY meclizine 25 mg tablet 25 mg PO BID PRN (Reason: dizziness) venlafaxine 37.5 mg tablet 37.5 mg PO QDAY Qty: 90 1RF chlordiazepoxide HCl 5 mg capsule 10 mg PO Q12H PRN (Reason: anxiety) Qty: 60 0RF (DME) handicap placard See Rx Instructions .Route .MEDSUPPLY Qty: 1 0RF Rx Instructions: Duration 5 years, difficulty with ambualation. Primary Care Provider: Cole Shipley Referrals: Cole Shipley, DO [Primary Care Provider] - Activity Restrictions/Additional Instructions: Please keep yourself well-hydrated but if symptoms persist or worsen return to the ER for repeat evaluation. While urine culture is still pending please continue the antibiotics given to you from the outside hospital. Print Language: Korean Disposition Disposition: Home, Self Care Discharge Date/Time: 06/12/24 03:29
--- NOTE | 2024-06-12 23:46 | CT_ITS ---
PROCEDURE: CTA CHEST W/WO CONTRAST 06/12/2024 REASON FOR EXAM: ? PE TECHNIQUE: CTA imaging of the chest with intravenous contrast. Coronal and Sagittal reconstruction series were provided. Maximum intensity projection (MIPs) Volume rendering and CONTRAST: 100 cc Isovue 370 IV One or more dose reduction techniques were used (e.g., Automated exposure control, adjustment of the mA and/or kV according to patient size, use of iterative reconstruction technique). RADIATION DOSE SUMMARY: CTDlvol: 12.19 mGy DLP: 413.15 mGycm COMPARISON: None available FINDINGS: No evidence of filling defect to suggest pulmonary embolism. Ectatic thoracic aorta appears within limits. Standard three-vessel arch appears within limits. Mild appearing coronary calcification noted. No pericardial or pleural effusion. Mildly enlarged subcarinal node and possibly mildly large left hilar nodes. A couple bilateral low-density cystic appearing thyroid foci largest right lobe measuring 1.8 cm coronal 125. The left lower lobe posterior basal and portion of the anteriomedial basal segmental airways appear occluded. There is collapse and dense consolidation of large portion of the left lower lobe with some aeration seen at the superior segment and portions of the anteromedial basal segments. Widening of the pulmonary vessels at the left inferior hilum between area of consolidation for example axial 118 difficult to exclude an underlying parenchymal mass. The lungs otherwise appear clear. Limited images upper abdomen suggestion of possible intrarenal stone partially imaged upper pole left kidney and possibly partially imaged cortical cyst at the upper portion of the right kidney axial image 1. Expansile lytic lesion of the right acromion with areas of cortical disruption for example axial 232 concerning for neoplastic process and associated pathologic fracture. Subsequent areas of right clavicle lytic appearing foci axial 233. CT/CTA Chest W/WO Contrast IMPRESSION: No evidence of filling defect to suggest pulmonary embolism. Densely consolidated large portion of the left lower lobe as above with airway obstruction/opacification concerning for possible inflammatory/infectious process or neoplastic process not excluded. Clinically correlate, recommend pulmonary consult and requires further workup. Expansile lytic lesion of the right acromion with areas of cortical disruption for example axial 232 concerning for neoplastic process and associated pathologic fracture. Subjacent areas of right clavicle lytic appearing foci axial 233. Mildly enlarged subcarinal lymph node and possibly mildly large left hilar node s. May be reactive with neoplastic process not excluded, follow-up to resolution. Reading Location: [id number]
== END 2024-06-12 03:29 | disposition home or self-care (01) ==
PROVIDERS: Emergency Provider Emergency Medicine; PCP Family Medicine; Visit Provider Emergency Medicine
DX: R53.1 Weakness (principal); E86.0 Dehydration; I10 Essential (primary) hypertension; Z86.718 Personal history of other venous thrombosis and embolism; E78.00 Pure hypercholesterolemia, unspecified; Z79.01 Long term (current) use of anticoagulants; R10.9 Unspecified abdominal pain; M54.9 Dorsalgia, unspecified; D72.829 Elevated white blood cell count, unspecified; R35.0 Frequency of micturition
CPT/HCPCS: 96360; 96361; 99282; 36415; 71045; 71275; 74177; 80048; 81001; 83605; 83735; 85025; 85610; 85730; 87040; 87077; 87086; 87088; 87186; 93005; Q9967; A4216

== ENCOUNTER 2024-06-13 19:45 | Inpatient (IN) | payer MEDICARE, OTHER, SELFPAY ==
[2024-06-13 19:47] VITALS: BP 140/85; PULSE 131; RESP 18; TEMP 37; O2SAT 93
[2024-06-13] MEDS: 0.9% Normal Saline (1000mL) 1,000 ML 999 ML IV ×2 (20:49→22:20)
[2024-06-13 21:04] LABS: Absolute Lymphocyte Count 0.72 X10^3/uL (0.83-4.51); Absolute Neutrophil Count 14.7 X10^3/uL (2.0-7.7); Basophil# 0.05 X10^3/uL; Basophil% 0.3 % (0-1); Eosinophil# 0.07 X10^3/uL; Eosinophils% 0.4 % (0-5); Hematocrit 37.5 % (37-47); Hemoglobin 12.9 g/dL (12.0-15.0); Lymphocyte # 0.72 X10^3/ul (0.83-4.51); Lymphocyte % 4.3 % (19-41); Mean Corp Hgb Conc 34.4 g/dL (32-36); Mean Corpuscular Hgb 28.7 pg (27.0-32.0); Mean Corpuscular Volume 83.3 fL (81-99); Monocyte# 1.17 X10^3/uL; NRBC Flagged by Analyzer 0 % (0-5); Neutrophil # 14.65 X10^3/uL (2.7-7.7); Neutrophil % 87.5 % (47-70); Platelet Count 368 K/mm3 (150-450); RBC Distribution Width CV 12.9 % (11.6-14.6); RBC Distribution Width SD 37.9 fl (35.1-43.9); White Blood Count 16.7 K/mm3 (4.4-11.0)
[2024-06-13 21:46] VITALS: BP 147/87; PULSE 120; RESP 23; O2SAT 93
[2024-06-13 21:46] LABS: Magnesium 1.7 mg/dL (1.5-2.2)
[2024-06-13 22:02] LABS: Anion Gap 13 (5-15); BUN 13 mg/dL (4-19); BUN/Creat Ratio 21.6 RATIO (10-20); Calcium,Total 9.3 mg/dL (7.6-11.0); Carbon Dioxide 24.1 mmol/L (21.0-32.0); Chloride 96 mmol/L (98-108); Creatinine, Serum 0.61 mg/dL (0.70-1.20); EST Glomerular Filtration Rate 91 (>60); Glucose 173 mg/dL (70-99); Potassium 3.3 mmol/L (3.3-5.1); Sodium Level 133 mmol/L (133-145)
--- NOTE | 2024-06-13 22:09 | HP.PCM.HOS_ITS ---
HPI - General General Date of Admission: 06/13/24 Date of Service: 06/13/24 Chief Complaint: Worsening weakness HPI Narrative SCOTT BAIRD, is a 78 F who presented to [facility] ED on 06/13/2024 with worsening weakness. Patient was seen in the ED on 06/12 for similar concern. She was also reporting intermittent left-sided flank pain at that time. Was noted to have WBC count of 16, neutrophil predominant but CBC and BMP were otherwise unremarkable. UA was mildly infectious appearing. She was tachycardic to the 130s and had low-grade fever to 99.2F, but tachycardia resolved with IV fluid resuscitation. CT abdomen pelvis with IV contrast showed no pyelonephritis, did show focal irregular wall thickening of the cecum and ascending colon concerning for malignancy versus focal colitis, prominent retroperitoneal lymph nodes and right lower quadrant lymph nodes, and suspected filling defects in the left lower lobe pulmonary arteries concerning for PE with left lower lobe consolidation. CTA chest showed no PE, did show densely consolidated large portion of left lower lobe with airway obstruction/opacification concerning for possible infectious/inflammatory process versus neoplastic process; also showed an expansile lytic lesion of the right acromion with areas of cortical disruption concerning for neoplastic process with associated pathologic fracture, as well as mildly enlarged subcarinal and left hilar lymph nodes. Importantly, on further chart review patient was hospitalized at [facility] in December, see note from 01/04 for further details. In short, she was on Coumadin for history of PE and presented there with rectal bleeding and was found to have supratherapeutic INR. CT abdomen pelvis showed no active GI bleed but did show thickening of cecum and proximal ascending colon. GI recommended colonoscopy but patient declined this. 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 CT chest showed new dense left lower lobe consolidation. Pulmonology recommended outpatient bronchoscopy, and patient notably just completed this in early May and biopsy was negative for malignancy. Her GI bleed resolved with improved INR and she was opted to be discharged home on Eliquis. On 06/12 ED visit, patient was able to ambulate on her own to the bathroom and back and was steady on her feet. Given that her CAT scan findings appeared similar to prior findings in December and heart rate improved with IV fluids, decision was made for patient to be discharged home with family. Unfortunately, patient had worsening weakness at home and family did not feel like they were able to take care of her, so she came back in for further evaluation. In the ED tonight she was again tachycardic to the 120s but otherwise hemodynamically stable on room air and had only low-grade fever. Given 2 L of IV fluids with some improvement but not resolution of tachycardia. Hospitalist was then contacted for admission. I saw the patient at bedside in the ED, grandson was present. Patient was mildly fatigued appearing but otherwise sitting back comfortably in bed, conversing normally and in no acute distress. She did not appear overtly dry on exam. She reported worsening generalized weakness of her legs with difficulty getting out of bed and ambulating on her own. She reported continued intermittent mid to left lower back pain. Also reports right shoulder pain and states this has been going on for some time; notes that the pain is worse with motions like putting on her jacket, but she has been able to use the walker for ambulation without much shoulder pain. She continues to have mild chronic cough but denies any sputum production. Denies any UTI symptoms. No other acute concerns at this time. [facility] Medical History (Updated 06/14/24 @ 00:07 by Kayla Haro) DVT (deep venous thrombosis) Pneumonia Osteoarthritis High triglycerides High cholesterol Arthritis Home Medications ?Medication ?Instructions ?Recorded ?Last Taken ?Type blood pressure monitor #1 ea 06/02/23 Unknown Rx venlafaxine 37.5 mg tablet 37.5 mg PO QDAY #90 tabs Unknown Rx atorvastatin 40 mg tablet See Rx Instructions .Route 0 08/19/23 Unknown Rx .COMPLEX #90 tabs chlordiazepoxide HCl 5 mg capsule 10 mg (2 x 5 mg) PO Q12H PRN 12/24/23 Unknown Rx anxiety #60 caps apixaban 2.5 mg tablet (Eliquis) 2.5 mg PO BID #180 ta bs 02/04/24 Unknown Rx amlodipine 5 mg tablet 5 mg PO DAILY #90 tabs 03/23 Unknown Rx betamethasone dipropionate 0.05 % 1 applic topical EVAN LY PRN rash 03/23/24 Unknown Rx topical cream #45 grams ferrous sulfate 325 mg (65 mg 650 mg PO QDAY 03/23/24 Unknown History iron) tablet (Feosol) handicap ziaard #1 ea 05/26/24 Unknown Rx cephalexin 250 mg capsule 250 mg PO 4X/DAY 06/11/24 Un known History meclizine 25 mg tablet 25 mg PO BID PRN dizziness 0 06/12/24 Unknown History Allergy/AdvReac Type Severity Reaction Status Date / Time prednisone Allergy Unknown Rash Verified 06/13/24 19:49 diphenhydramine (From Allergy Rash Verified 06/13/24 19:49 Benadryl) Influenza Virus Vaccines AdvReac Intermediate Other Verified 06/14/24 00:41 (flu vaccine) Family History Mother Arthritis Brother Myocardial infarction Father Heart disease Surgical History History of bilateral knee replacement History of umbilical hernia repair History of tonsillectomy Social History Smoking Status: Never smoker alcohol intake: never substance use type: does not use what type of physical activity do you participate in: swimming ROS Constitutional Constitutional: Reports fatigue and weakness; Denies chills or fever(s) Eyes Eyes: Denies change in vision ENT HEENT: Denies nasal congestion, sinus pressure or sore throat Cardiovascular Cardiovascular: Denies chest pain, dyspnea on exertion or edema Respiratory/Chest Respiratory/Chest: Reports cough; Denies productive cough, shortness of breath at rest, shortness of breath with exertion or wheezing Gastrointestinal Gastrointestinal: Denies abdominal pain, constipation, diarrhea, nausea or vomiting Genitourinary Genitourinary: Denies dysuria Musculoskeletal Musculoskeletal: Reports back pain and myalgias; Denies arthralgias Neurologic Neurologic: Denies dizziness, headache(s), numbness or paresthesias Vital Signs Vital Signs Vital Signs: 06/13/24 19:47 06/13/24 20:05 06/13/24 21:46 Temperature 98.6 F Temperature Source Temporal Pulse Rate 131 H 120 H Respiratory Rate 18 23 H Respiratory Effort Normal Respiratory Pattern Normal Blood Pressure 140/85 H 147/87 H Blood Pressure Mean 103 107 Pulse Ox 93 93 Oxygen Delivery Method Room Air Room Air Physical Exam Const alert, oriented x3 and no apparent distress Constitutional Narrative: Pleasant elderly female, class I obesity, mildly fatigued appearing but otherwise sitting back comfortably in bed, conversing normally, in no acute distress. General Appearance: cooperative and comfortable HEENT normocephalic, head/scalp atraumatic, hearing grossly normal bilaterally, nasal mucous membranes and turbinates normal and moist oral mucous membranes Eyes PERRL, EOMs intact bilaterally and conjunctivae normal Neck full ROM Chest inspection of chest normal Resp normal respiratory effort, normal air movement, no use of accessory muscles and clear to auscultation bilaterally Cardio no murmurs and peripheral pulses 2+ throughout Cardio Narrative: Tachycardic, regular rhythm. GI normal to inspection, nondistended, normoactive bowel sounds, soft to palpation, non-tender and non-distended Back/Spine normal ROM Extremity normal to inspection and no pedal edema Skin no rashes or lesions noted Neuro oriented x3 and no focal motor deficits Neuro Narrative: Generalized weakness noted. Speech: speech normal Psych mental status grossly normal Results Lab / Micro Data 06/13/24 20:51 06/13/24 20:51 Labs: Laboratory Results - last 24 hr 06/13/24 20:51: WBC 16.7 H, RBC 4.50, Hgb 12.9, Hct 37.5, MCV 83.3, MCH 28.7, MCHC 34.4, RDW Std Deviation 37.9, RDW Coeff of Carroll 12.9, Plt Count 368, MPV 10.0, Immature Gran % (Auto) 0.500, Neut % (Auto) 87.5 H, Lymph % (Auto) 4.3 L, Pine % (Auto) 7.0, Eos % (Auto) 0.4, Baso % (Auto) 0.3, Absolute Neuts (auto) 14.7 H, Absolute Lymphs (auto) 0.72 L, Nucleated RBC % 0, Sodium 133, Potassium 3.3, Chloride 96 L, Carbon Dioxide 24.1, Anion Gap 13, BUN 13, Creatinine 0.61 L , Est GFR (MDRD) Non-Af 91, BUN/Creatinine Ratio 21.6 H, Glucose 173 H, Calcium 9.3, Magnesium 1.7 Assessment & Plan Assessment/Plan (1) Generalized weakness: PLAN: Plan Patient is a 78-year-old female who presented to [facility] ED on 06/13/2024 with worsening weakness. 1. Acute on chronic debility ? Admit under observation status to [facility]. PT/OT/case management consulted. Suspect possible underlying malignancy with current infection and known history of osteoarthritis are main contributors. Suspect she will need SNF placement on discharge and is agreeable to this. Appreciate therapy recommendations. 2. Concern for postobstructive pneumonia, concern for UTI ? CTA chest showed dense left lower lobe consolidation with concern for possible postobstructive pneumonia; see HPI for further details on this. UA mildly infectious appearing. Urine culture from 06/11 growing only 11-25,000 gram- negative rods. However, WBC count elevated with neutrophil predominance and low-grade fever noted, and she has been treated with Keflex since for UTI without much improvement. Given these findings, will treat for now with IV vancomycin and Zosyn. Follow-up urine culture speciation and blood cultures from 06/11. 3. Concern for malignancy ? See HPI for further details. In short, has persistent thickening of cecum and ascending colon noted on CAT scans in December and on this admit concerning for colon cancer. Notably, continues to have normal stools and reports no right- sided abdominal pain. Other concerning findings include right expansile lytic lesion of right acromion with associated pathologic fracture, mildly enlarged subcarinal and left hilar lymph nodes, L4 vertebral body 1.4 cm sclerotic lesion, and prominent retroperitoneal and right lower quadrant lymph nodes. GI recommended colonoscopy in December but patient refused then and continues to state now that she does not want to have colonoscopy done. Will send CEA level and labs for multiple myeloma for further workup. Can consider oncology consult for additional input as needed. 4. Persistent sinus tachycardia ? Sinus tachycardia to the 120s to low 130s in the ED. Improved with IV fluids on ED visit on 06/11, but unfortunately it has not improved much after 2 L of IV fluids on this admission. No hypoxia noted. Blood pressure normal to hypertensive. Treating for possible infection as noted above. Monitor closely. 5. Left lower lobe consolidative mass ? See HPI for further details. In short, was found to have consolidative mass in December and recently had bronchoscopy with biopsy done in early May with biopsy results negative for malignancy. Chronic medical conditions: ? Class I obesity: BMI 33 on admit. Complicates hospital course, care and prognosis. ? Hypertension: Continue home amlodipine. ? Hyperlipidemia: Continue home statin. ? Anxiety/depression: Continue home venlafaxine and chlordiazepoxide twice daily as needed. ? 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 ? Recent GI bleed: Had GI bleed in December that was suspected secondary to supratherapeutic INR while patient was on warfarin. Patient refused EGD or colonoscopy. GI bleed resolved with improvement in INR and hemoglobin has since improved. DVT prophylaxis: Not indicated, on Eliquis CODE STATUS: DNR CCA, DNI Expect disposition: Likely SNF, 1 to 2 days Total clinical time spent by myself addressing the patient's medical issues, reviewing all the data, and collaborating with patient's care team: 75 minutes. Charges/Coding Visit Charges Inpatient E&M: 40376 Init Hosp L3
[2024-06-13 22:13] VITALS: BP 147/87; PULSE 120; RESP 23; TEMP 37; O2SAT 93
--- NOTE | 2024-06-13 22:19 | EDS_ITS ---
HPI History of Present Illness Chief Complaint: Weakness Informant: patient and family Narrative Narrative: Patient is a 78-year-old female with history of hypertension and previous DVT/PE currently on Eliquis. She was seen recently secondary to generalized weakness and difficulty to ambulate. At that time she was evaluated with CT scans of her chest abdomen and pelvis which showed changes concerning for malignancy. She was tachycardic upon arrival but this resolved after IV hydration. She was evaluated by the hospitalist and it was felt that with her improvement of symptoms she would not need admitted and was discharged home. Patient states that her weakness has been slowly worsening since discharge and today tried to get into bed but was unable to do so and had to lower herself to the ground. She denies striking her head or any loss of consciousness. She states she was not on the ground for very long as she was able to get a hold of her grandson whom she lives with. Therefore the worsening weakness she was brought back in for evaluation [facility] Medical History (Updated 06/13/24 @ 23:[address] Rodriguez Braxton, ) Pneumonia Osteoarthritis High triglycerides High cholesterol Arthritis Home Medications ?Medication ?Instructions ?Recorded ?Last Taken ?Type blood pressure monitor #1 ea 06/02/23 Unknown Rx venlafaxine 37.5 mg tablet 37.5 mg PO QDAY #90 tabs Unknown Rx atorvastatin 40 mg tablet See Rx Instructions .Route 0 08/19/23 Unknown Rx .COMPLEX #90 tabs chlordiazepoxide HCl 5 mg capsule 10 mg (2 x 5 mg) PO Q12H PRN 12/24/23 Unknown Rx anxiety #60 caps apixaban 2.5 mg tablet (Eliquis) 2.5 mg PO BID #180 ta bs 02/04/24 Unknown Rx amlodipine 5 mg tablet 5 mg PO DAILY #90 tabs 03/23 Unknown Rx betamethasone dipropionate 0.05 % 1 applic topical EVAN LY PRN rash 03/23/24 Unknown Rx topical cream #45 grams ferrous sulfate 325 mg (65 mg 650 mg PO QDAY 03/23/24 Unknown History iron) tablet (Feosol) handicap placard #1 ea 05/26/24 Unknown Rx cephalexin 250 mg capsule 250 mg PO 4X/DAY 06/11/24 Un known History meclizine 25 mg tablet 25 mg PO BID PRN dizziness 0 06/12/24 Unknown History Allergy/AdvReac Type Severity Reaction Status Date / Time prednisone Allergy Unknown Rash Verified 06/13/24 19:49 diphenhydramine (From Allergy Rash Verified 06/13/24 19:49 Benadryl) Family History Mother Arthritis Brother Myocardial infarction Father Heart disease Surgical History History of bilateral knee replacement History of umbilical hernia repair History of tonsillectomy Social History Smoking Status: Never smoker alcohol intake: never substance use type: does not use what type of physical activity do you participate in: swimming ROS ROS ED Constitutional Constitutional ED: Denies chills or fever(s) Eyes Eyes: Denies blurry vision or change in vision ENT ENT ED: Denies sore throat Cardiovascular Cardiovascular: Reports racing heartbeat; Denies chest pain Respiratory/Chest Respiratory/Chest: Denies cough or dyspnea Gastrointestinal Gastrointestinal: Denies abdominal pain, diarrhea, nausea or vomiting Genitourinary Genitourinary ED: Denies dysuria Musculoskeletal Musculoskeletal: Denies myalgias Integumentary Denies rash Neurologic Neurologic: Reports weakness; Denies headache(s) Hematologic/Lymphatic Hematologic/Lymphatic: Reports easy bleeding and easy bruising EXAM Physical Exam Const Vital Signs: 06/13/24 19:47 06/13/24 20:05 06/13/24 21:46 Temperature 98.6 F Temperature Source Temporal Pulse Rate 131 H 120 H Respiratory Rate 18 23 H Respiratory Effort Normal Respiratory Pattern Normal Blood Pressure 140/85 H 147/87 H Blood Pressure Mean 103 107 Pulse Ox 93 93 Oxygen Delivery Method Room Air Room Air 06/13/24 22:13 Temperature 98.6 F Temperature Source Pulse Rate 120 H Respiratory Rate 23 H Respiratory Effort Respiratory Pattern Blood Pressure 147/87 H Blood Pressure Mean 107 Pulse Ox 93 Oxygen Delivery Method Positive well nourished, well developed and obese General Appearance ED: well developed; Negative for pallor Nutritional Appearance: obese HEENT Reports dry mucous membranes HEENT Narrative: Mucous membranes are dry and tacky No tongue or lip swelling no oral lesions no airway edema or compromise No signs of infection noted in the posterior pharynx Head is normocephalic atraumatic Mouth ED: Yes dry mucous membranes Mouth: dry mucous membranes Eyes PERRL and EOMs intact bilaterally General Eye ED: Negative for scleral icterus Neck supple Neck Narrative: No nuchal rigidity or meningeal signs Chest Wall palpation of chest normal Resp normal respiratory effort and clear to auscultation bilaterally Resp Narrative: Breath sounds are diminished throughout with faint rhonchi in the bilateral lower lobes greatest on the left but no signs of respiratory distress Cardio regular rhythm Rate: tachycardic and other Other Details: Tachycardic rate with regular rhythm GI normal to inspection, nondistended, normoactive bowel sounds, non-tender, non- distended and no masses GI Narrative: No voluntary guarding or rigidity or pulsatile mass Auscultation: normoactive bowel sounds Palpation: soft Extremity normal to inspection Extremity Narrative: Pelvis is stable and there is no shortening of either lower extremity Patient is able to move all extremities without difficulty All compartments are soft and compressible going against compartment syndrome Neuro oriented x3, CN's II-XII intact bilaterally and no sensory deficits noted Neuro Narrative: GCS of 15 Cranial nerves II through XII are grossly intact without focal neurologic deficit No truncal ataxia noted Sensorium / Orientation: alert Psych mental status grossly normal Skin no rashes or lesions noted, no wounds and No skin turgor normal Skin Narrative: Skin turgor is increased General Skin Exam: Negative for jaundice or pallor MDM MDM MDM Narrative Medical decision making narrative: Patient presented to the ER tachycardic but otherwise with stable vitals. She was recently worked up and with imaging of her chest abdomen and pelvis done just the other day that I did not feel the need for repeat imaging. Even though she reported she lowered herself to the ground and is on Eliquis there is no signs of head injury and I have low concern for underlying subarachnoid or subdural hemorrhage so I do not feel the need for a CT of the head. Basic blood work was performed to check for any type of KOLBY or electrolyte abnormality. Labs were very similar to the previous day. By physical exam she does not have any neurologic deficit. With IV fluids there was improvement of her heart rate similar to the previous day. However as her weakness is returning and keeping her from performing her ADLs she will be admitted to the hospital for PT OT evaluation and further discussion about evaluation of the potential malignancy found on her previous imaging studies History & Record Review Discussion w/independent historian: Patient and Family Lab Data Attestation: I reviewed the patient's lab results. Labs: Laboratory Results - last 24 hr 06/13/24 20:51 WBC 16.7 H RBC 4.50 Hgb 12.9 Hct 37.5 MCV 83.3 MCH 28.7 MCHC 34.4 RDW Std Deviation 37.9 RDW Coeff of Carroll 12.9 Plt Count 368 MPV 10.0 Immature Gran % (Auto) 0.500 Neut % (Auto) 87.5 H Lymph % (Auto) 4.3 L Howard % (Auto) 7.0 Eos % (Auto) 0.4 Baso % (Auto) 0.3 Absolute Neuts (auto) 14.7 H Absolute Lymphs (auto) 0.72 L Nucleated RBC % 0 Sodium 133 Potassium 3.3 Chloride 96 L Carbon Dioxide 24.1 Anion Gap 13 BUN 13 Creatinine 0.61 L Est GFR (MDRD) Non-Af 91 BUN/Creatinine Ratio 21.6 H Glucose 173 H Calcium 9.3 Magnesium 1.7 Management Discussion w/another healthcare provider: Hospitalist Discharge Plan Dx/Rx/DC Orders Clinical Impression: Generalized weakness, Hypertension, Dehydration, Current use of weighmaster lead anticoagulation Disposition Disposition: Acute Care Hospital [facility]
[2024-06-13 23:00] VITALS: BP 146/66; O2SAT 92
[2024-06-13 23:42] VITALS: BMI 33.0
[2024-06-13 23:51] VITALS: BP 143/78; PULSE 124; RESP 20; TEMP 37.5; O2SAT 95
[2024-06-14] VITALS (10 sets, daily range): BP systolic 108–133; BP diastolic 64–78; PULSE 80–130; RESP 16–18; TEMP 36.3–38.7; O2SAT 90–98
[2024-06-14] MEDS: Piperacil/Tazobactam 3.375 GM in 0.9% Normal Saline (50mL MB+) 50 ML IV ×3 (01:24→21:49)
[2024-06-14] MEDS: Vancomycin HCl 2,000 MG in 0.9% Normal Saline (500mL Bag) 500 ML 250 MG IV (01:36)
[2024-06-14] MEDS: Acetaminophen 325 MG Tablet 650 MG PO ×2 (01:50→17:51)
--- NOTE | 2024-06-14 01:55 | PCM.RX.CS ---
Consult Antibiotic Management Pharmacy has been consulted to manage selected antibiotic: Vancomycin Type of Intervention Type of Consult: New start Labs Labs: Sodium 133 mmol/L (133-145) 06/13/24 20:51 Potassium 3.3 mmol/L (3.3-5.1) 06/13/24 20:51 Chloride 96 mmol/L (98-108) L 06/13/24 20:51 Carbon Dioxide 24.1 mmol/L (21.0-32.0) 06/13/24 20:51 Anion Gap 13 (5-15) 06/13/24 20:51 BUN 13 mg/dL (4-19) 06/13/24 20:51 Creatinine 0.61 mg/dL (0.70-1.20) L 06/13/24 20:51 Est GFR (MDRD) Non-Af 91 (>60) 06/13/24 20:51 BUN/Creatinine Ratio 21.6 RATIO (10-20) H 06/13/24 20:51 Glucose 173 mg/dL (70-99) H 06/13/24 20:51 Dosing Weight Weight used for dosin.8 kg Estimated Creatinine Clearance Estimated Creatinine Clearance: 56.5 Goal Trough Goal Trough: 15-20 mcg/mL Pharmacy Plan for Drug Dosing Pharmacy Plan for Drug Dosing: Pharmacy Service will continue to monitor and adjust dosing as required. LOADING DOSE 2000MG 06/14 @ 0136. START 750MG Q12H AND DRAW TROUGH PRIOR TO 4TH DOSE Follow-Up Labs Follow-Up Labs: Trough: Vancomycin Date/Time Labs Ordered Labs to be done on [date and time ordered]: 06/15 @ 7901
[2024-06-14 07:38] LABS: Hematocrit 33.3 % (37-47); Hemoglobin 11.2 g/dL (12.0-15.0); Mean Corp Hgb Conc 33.6 g/dL (32-36); Mean Corpuscular Hgb 28.4 pg (27.0-32.0); Mean Corpuscular Volume 84.5 fL (81-99); Mean Platelet Vol. 9.9 fl (6.2-12.0); Platelet Count 344 K/mm3 (150-450); RBC Distribution Width CV 12.8 % (11.6-14.6); Red Blood Count 3.94 M/mm3 (4.2-5.4); White Blood Count 17.4 K/mm3 (4.4-11.0)
[2024-06-14] MEDS: Ferrous Sulfate 325 MG Tablet PO ×2 (08:09→17:52)
[2024-06-14] MEDS: Venlafaxine HCl 25 MG Tablet 37.5 MG PO (08:09)
[2024-06-14] MEDS: APIXABAN 2.5 MG TABLET (WCH) PO ×2 (08:10→21:50)
[2024-06-14] MEDS: amLODIPine 5 MG Tablet PO (08:10)
[2024-06-14 08:12] LABS: Anion Gap 10 (5-15); BUN 7 mg/dL (4-19); BUN/Creat Ratio 13.2 RATIO (10-20); Calcium,Total 8.7 mg/dL (7.6-11.0); Carbon Dioxide 25.6 mmol/L (21.0-32.0); Chloride 104 mmol/L (98-108); Creatinine, Serum 0.53 mg/dL (0.70-1.20); EST Glomerular Filtration Rate 94 (>60); Estimated Creatinine Clearance 56.51 ml/min (50-250); Glucose 131 mg/dL (70-99); Sodium Level 139 mmol/L (133-145)
--- NOTE | 2024-06-14 09:33 | PN.HOSP_ITS ---
Reason for Visit Reason for Visit: Diagnoses Weakness (06/13/24) Objective Data Objective Data Vital Signs: Vital Signs Temp Pulse Resp BP Pulse Ox O2 Del Method O2 Flow Rate 97.3 F L 87 18 108/64 98 Nasal Cannula 2 06/14/24 08:05 06/14/24 08:05 06/14/24 08:05 06/14/24 08:05 06/14/24 09:12 06/14/24 09:12 06/14/24 09:12 Oxygen Flow Rate (L/min) 2 Oxygen Delivery Method Nasal Cannula Weight: 180 lb 5.41 oz Body Mass Index (BMI) 33.0 Intake & Output: Intake and Output for Last 24 Hours 06/12/24 06/13/24 06/14/24 23:59 23:59 23:59 Intake Total 1999 / 0 1040 / 1040 Output Total 500 / 500 Balance 1999 / 1749 540 / 540 Lab / Micro Data 06/14/24 07:05 06/14/24 07:05 Labs: Laboratory Results - last 24 hr 06/13/24 20:51: WBC 16.7 H, RBC 4.50, Hgb 12.9, Hct 37.5, MCV 83.3, MCH 28.7, MCHC 34.4, RDW Std Deviation 37.9, RDW Coeff of [place] 12.9, Plt Count 368, MPV 10.0, Immature Gran % (Auto) 0.500, Neut % (Auto) 87.5 H, Lymph % (Auto) 4.3 L, [place] % (Auto) 7.0, Eos % (Auto) 0.4, Baso % (Auto) 0.3, Absolute Neuts (auto) 14.7 H, Absolute Lymphs (auto) 0.72 L, Nucleated RBC % 0, Sodium 133, Potassium 3.3, Chloride 96 L, Carbon Dioxide 24.1, Anion Gap 13, BUN 13, Creatinine 0.61 L , Est GFR (MDRD) Non-Af 91, BUN/Creatinine Ratio 21.6 H, Glucose 173 H, Calcium 9.3, Magnesium 1.7 06/14/24 07:05: WBC 17.4 H, RBC 3.94 L, Hgb 11.2 L, Hct 33.3 L, MCV 84.5, MCH 28.4, MCHC 33.6, RDW Std Deviation 39.0, RDW Coeff of [place] 12.8, Plt Count 344, MPV 9.9, Sodium 139, Potassium 3.0 L, Chloride 104, Carbon Dioxide 25.6, Anion Gap 10, BUN 7, Creatinine 0.53 L, Estim Creat Clear Calc 56.51, Est GFR (MDRD) Non-Af 94, BUN/Creatinine Ratio 13.2, Glucose 131 H, Calcium 8.7 Physical Exam Narrative Seen and examined. Patient states she is feeling generalized weakness and had 3 ED visits. She did not had low urinary tract symptoms but was given antibiotic on the basis of abnormal UA. She did not feel better. On chart review it seems patient has right colonic thickening/mass but patient refused for colonoscopy in the past. She also had colonoscopy about 3 weeks ago and from the note it seems pathology was negative. Denies fever or chills Physical exam General: Alert, Oriented x3, Cooperative. BMI 33.0 kg/m? HEENT: Atraumatic, PERRLA, EOMI, Normocephalic Oral: No Gingival or Mucosal Lesions/ Ulcerations Neck: Supple, No JVD, Negative Carotid Bruits Chest wall/Lungs: Air entry diminished, more in left lung base no crepitation/rhonchi Cardiovascular: Regular rate, Regular Rhythm, Normal S1, Normal S2, No M/G/R Abdomen: Bowel Sounds Present, Soft, Non Tender, Non-Distended : No dysuria. No renal angle tenderness. No suprapubic tenderness. Extremities: No edema, Capillary Refill Less than 3 Seconds Skin: No rashes, No breakdown Musculoskeletal: No Tenderness to Palpation of Joints or Extremities. Muscle strength 5/5 at knees and hip joints. Neurological: Cranial nerves II-XII grossly intact, DTR 2+/4. No acute focal neurological deficit. Psych/Mental Status: Normal Affect, Appropriate. Assessment & Plan Assessment/Plan (1) Generalized weakness: PLAN: Plan Patient is a 78-year-old female who presented to [facility] ED on 06/13/2024 with worsening weakness over past 4 to 5 days. She is having difficulty in getting up and ambulate. She was given antibiotic [facility] for presumed UTI but she did not get better. 1. Acute on chronic debility ? Admit under observation status to [facility]. PT/OT/case management consulted. On exam patient with good muscle strength of hip and knee joints. Has mild gait imbalance sometimes. Probably from chronic disease including osteoarthritis with suspected underlying malignancy 2. Concern for postobstructive pneumonia, ? CTA chest showed dense left lower lobe consolidation with concern for possible postobstructive pneumonia; see HPI for further details on this. UA mildly infectious appearing. Urine culture from 06/11 growing only 11 K -25,000 gram- negative rods therefore UTI ruled out. she has been treated with Keflex since for UTI without much improvement. Patient did not have IV and vancomycin. Sample Finisher consulted. 3. Concern for malignancy: Previous CT scan abdomen shows focal irregular wall thickening of cecum and ascending colon with luminal narrowing suggestive of neoplasm. There is similar finding in December 2020 but at that time patient refused for colonoscopy. Patient continues to have normal stools and reports no right-sided abdominal pain. Other concerning findings include right expansile lytic lesion of right acromion with associated pathologic fracture, mildly enlarged subcarinal and left hilar lymph nodes, L4 vertebral body 1.4 cm sclerotic lesion, and prominent retroperitoneal and right lower quadrant lymph nodes. GI consulted 4. Persistent sinus tachycardia ? Sinus tachycardia to the 120s to low 130s in the ED. improved with IV fluid 5. Left lower lobe consolidative mass ? See HPI for further details. In short, was found to have consolidative mass in December and recently had bronchoscopy with biopsy done in early May with biopsy results negative for malignancy. Chronic medical conditions: ? Class I obesity: BMI 33 on admit. Complicates hospital course, care and prognosis. ? Hypertension: Continue home amlodipine. ? Hyperlipidemia: Continue home statin. ? Anxiety/depression: Continue home venlafaxine and chlordiazepoxide twice daily as needed. ? 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 ? Recent GI bleed: Had GI bleed in December that was suspected secondary to supratherapeutic INR while patient was on warfarin. Patient refused EGD or colonoscopy. GI bleed resolved with improvement in INR and hemoglobin has since improved. DVT prophylaxis: Not indicated, on Eliquis CODE STATUS: DNR CCA, DNI Charges/Coding Addendum Addendum: Total time of the visit including total time spent in counseling or coordination of care, (more than 50% of the total time, spent in obtaining medical information from nurses and other ancillary care providers ,explaining to the patient about labs, imaging, diagnosis and management of active complex medical conditions), review of previous medical record, GI and pulmonology consult, review of labs and imaging is 35 minutes. Visit Charges Inpatient E&M: 08761 Subs Hosp L3
[2024-06-14] MEDS: 0.9% Normal Saline (100mL Bag) 100 ML 15 ML IV (11:41)
--- NOTE | 2024-06-14 13:05 | CHAPLAIN ---
Type of Pastoral Visit _x__ Initial Visit ___ Follow-up Visit ___ On-call Visit ___ General Patient Visit ___ Spiritual Assessment ___ Family Conference ___ Bereavement ___ Rapid Response ___ Code Blue ___ Other (describe below) Pastoral Care Referral From _x__ Patient ___ Family ___ Nurse ___ Physician ___ Firearms Inspector ___ Cnc Milling Machinist ___ Other (describe below) Sacrament/Intervention _x__ Active listening ___ Anointing ___ Yazidism _x__ Bereavement ___ Communion _x__ Kimberly exploration ___ _x__ Life review _x__ Prayer ___ Reconciliation ___ Sacrament of Sick _x__ Supportive presence ___ Wedding ___ Other (describe below) Pastoral Comments patient has met this gift officer before and knows people in common; 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
[2024-06-14] MEDS: Vancomycin HCl 750 MG in 0.9% Normal Saline (250mL Bag) 250 ML 250 MG IV (14:08)
[2024-06-14] MEDS: 0.9% Saline Lock 10 ML Syringe IV (14:09)
--- NOTE | 2024-06-14 17:44 | EX.PCM.CON.G ---
HPI Consult Data Date of Consult: 06/14/24 HPI Narrative Reason for Consultation: Abnormal CT scan HPI Narrative: SCOTT BAIRD, is a 78 F who presented to [facility] ED on 06/13/2024 with worsening weakness. Patient was seen in the ED on 06/12 for similar concern. She was also reporting intermittent left-sided flank pain at that time. Was noted to have WBC count of 16, neutrophil predominant but CBC and BMP were otherwise unremarkable. UA was mildly infectious appearing. She was tachycardic to the 130s and had low-grade fever to 99.2F, but tachycardia resolved with IV fluid resuscitation. CT abdomen pelvis with IV contrast showed no pyelonephritis, did show focal irregular wall thickening of the cecum and ascending colon concerning for malignancy versus focal colitis, prominent retroperitoneal lymph nodes and right lower quadrant lymph nodes, and suspected filling defects in the left lower lobe pulmonary arteries concerning for PE with left lower lobe consolidation. CTA chest showed no PE, did show densely consolidated large portion of left lower lobe with airway obstruction/opacification concerning for possible infectious/inflammatory process versus neoplastic process; also showed an expansile lytic lesion of the right acromion with areas of cortical disruption concerning for neoplastic process with associated pathologic fracture, as well as mildly enlarged subcarinal and left hilar lymph nodes. Importantly, on further chart review patient was hospitalized at [facility] in December, see note from 01/04 for further details. In short, she was on Coumadin for history of PE and presented there with rectal bleeding and was found to have supratherapeutic INR. CT abdomen pelvis showed no active GI bleed but did show thickening of cecum and proximal ascending colon. GI recommended colonoscopy but patient declined this. 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 CT chest showed new dense left lower lobe consolidation. Pulmonology recommended outpatient bronchoscopy, and patient notably just completed this in early May and biopsy was negative for malignancy. Her GI bleed resolved with improved INR and she was opted to be discharged home on Eliquis. [facility] Medical History DVT (deep venous thrombosis) Pneumonia Osteoarthritis High triglycerides High cholesterol Arthritis Home Medications ?Medication ?Instructions ?Recorded ?Last Taken ?Type blood pressure monitor #1 ea 06/02/23 Unknown Rx venlafaxine 37.5 mg tablet 37.5 mg PO QDAY #90 tabs 07/11/23 Unknown Rx atorvastatin 40 mg tablet See Rx Instructions .Route 08/19/23 Unknown Rx .COMPLEX #90 tabs chlordiazepoxide HCl 5 mg capsule 10 mg (2 x 5 mg) PO Q12H PRN 12/24/23 Unknown Rx anxiety #60 caps apixaban 2.5 mg tablet (Eliquis) 2.5 mg PO BID #180 tabs 02/04/24 Unknown Rx amlodipine 5 mg tablet 5 mg PO DAILY #90 tabs 03/23/24 Unknown Rx betamethasone dipropionate 0.05 % 1 applic topical DAILY PRN rash 03/23/24 Unknown Rx topical cream #45 grams ferrous sulfate 325 mg (65 mg 650 mg PO QDAY 03/23/24 Unknown History iron) tablet (Feosol) handicap placard #1 ea 05/26/24 Unknown Rx cephalexin 250 mg capsule 250 mg PO 4X/DAY 06/11/24 Unknown History meclizine 25 mg tablet 25 mg PO BID PRN dizziness 06/12/24 Unknown History Allergy/AdvReac Type Severity Reaction Status Date / Time prednisone Allergy Unknown Rash Verified 06/13/24 19:49 diphenhydramine (From Allergy Rash Verified 06/13/24 19:49 Benadryl) Influenza Virus Vaccines AdvReac Intermediate Other Verified 06/14/24 00:41 (flu vaccine) Family History Mother Arthritis Brother Myocardial infarction Father Heart disease Surgical History History of bilateral knee replacement History of umbilical hernia repair History of tonsillectomy Social History Smoking Status: Never smoker alcohol intake: never substance use type: does not use what type of physical activity do you participate in: swimming ROS Constitutional Constitutional: Denies fatigue, fever(s), poor appetite, weight gain or weight loss Gastrointestinal Gastrointestinal: Denies belching, bloating, change in bowel habits, change in stool character, chewing difficulty, coffee ground emesis, constipation, cramping, diarrhea, dyspepsia, dysphagia, early satiety, excessive flatus, fecal incontinence, heartburn, hematemesis, hematochezia, hemorrhoids, loose stools, melena, nausea, odynophagia, rectal bleeding, tenesmus, vomiting or weight changes Physical Exam Const alert, oriented x3 and no apparent distress Constitutional Narrative: Pleasant elderly female, class I obesity, mildly fatigued appearing but otherwise sitting back comfortably in bed, conversing normally, in no acute distress. General Appearance: cooperative and comfortable HEENT normocephalic, head/scalp atraumatic, hearing grossly normal bilaterally, nasal mucous membranes and turbinates normal and moist oral mucous membranes Eyes PERRL, EOMs intact bilaterally and conjunctivae normal Neck full ROM Chest inspection of chest normal Resp normal respiratory effort, normal air movement, no use of accessory muscles and clear to auscultation bilaterally Cardio no murmurs and peripheral pulses 2+ throughout Cardio Narrative: Tachycardic, regular rhythm. GI normal to inspection, nondistended, normoactive bowel sounds, soft to palpation, non-tender and non-distended Back/Spine normal ROM Extremity normal to inspection and no pedal edema Skin no rashes or lesions noted Neuro oriented x3 and no focal motor deficits Neuro Narrative: Generalized weakness noted. Speech: speech normal Psych mental status grossly normal Lab / Micro Data 06/14/24 07:05 06/14/24 07:05 Labs: Laboratory Results - last 24 hr 06/13/24 20:51: WBC 16.7 H, RBC 4.50, Hgb 12.9, Hct 37.5, MCV 83.3, MCH 28.7, MCHC 34.4, RDW Std Deviation 37.9, RDW Coeff of [place] 12.9, Plt Count 368, MPV 10.0, Immature Gran % (Auto) 0.500, Neut % (Auto) 87.5 H, Lymph % (Auto) 4.3 L, [place] % (Auto) 7.0, Eos % (Auto) 0.4, Baso % (Auto) 0.3, Absolute Neuts (auto) 14.7 H, Absolute Lymphs (auto) 0.72 L, Nucleated RBC % 0, Sodium 133, Potassium 3.3, Chloride 96 L, Carbon Dioxide 24.1, Anion Gap 13, BUN 13, Creatinine 0.61 L, Est GFR (MDRD) Non-Af 91, BUN/Creatinine Ratio 21.6 H, Glucose 173 H, Calcium 9.3, Magnesium 1.7 06/14/24 07:05: WBC 17.4 H, RBC 3.94 L, Hgb 11.2 L, Hct 33.3 L, MCV 84.5, MCH 28.4, MCHC 33.6, RDW Std Deviation 39.0, RDW Coeff of [place] 12.8, Plt Count 344, MPV 9.9, Sodium 139, Potassium 3.0 L, Chloride 104, Carbon Dioxide 25.6, Anion Gap 10, BUN 7, Creatinine 0.53 L, Estim Creat Clear Calc 56.51, Est GFR (MDRD) Non-Af 94, BUN/Creatinine Ratio 13.2, Glucose 131 H, Calcium 8.7 Assessment & Plan Assessment/Plan (1) Generalized weakness: PLAN: Plan Patient is a 78-year-old female who presented to [facility] ED on 06/13/2024 with worsening weakness over past 4 to 5 days. Apparently there was concern for malignancy: Previous CT scan abdomen and pelvis displayed focal irregular wall thickening of cecum and ascending colon with luminal narrowing suggestive of neoplasm. There is similar finding in December 2020 but at that time patient refused for colonoscopy. There are some notices that the patient had a colonoscopy approximately 3 weeks ago and it was normal. However we have other concerning findings include right expansile lytic lesion of right acromion with associated pathologic fracture, mildly enlarged subcarinal and left hilar lymph nodes, L4 vertebral body 1.4 cm sclerotic lesion, and prominent retroperitoneal and right lower quadrant lymph nodes. If patient has not had a colonoscopy she should undergo colonoscopy. Charges/Coding Visit Charges Inpatient E&M: 20052 Init Hosp L3
--- NOTE | 2024-06-14 19:20 | NURSING ---
Returned call to Stevo june. This nurse provided update on current status and POC.
[2024-06-14] MEDS: Atorvastatin Calcium 40 MG Tablet PO (21:50)
[2024-06-15] VITALS (7 sets, daily range): BP systolic 104–122; BP diastolic 49–68; PULSE 84–92; RESP 16–18; TEMP 36.6–37.6; O2SAT 92–100
[2024-06-15] MEDS: Vancomycin HCl 750 MG in 0.9% Normal Saline (250mL Bag) 250 ML 250 MG IV (02:30)
[2024-06-15] MEDS: Piperacil/Tazobactam 3.375 GM in 0.9% Normal Saline (50mL MB+) 50 ML IV ×3 (05:37→21:01)
[2024-06-15] MEDS: Ferrous Sulfate 325 MG Tablet PO ×2 (08:42→18:48)
[2024-06-15] MEDS: Acetaminophen 325 MG Tablet 650 MG PO ×2 (08:42→22:43)
[2024-06-15] MEDS: Potassium Chloride Oral Tablet 20 MEQ 40 MEQ PO ×2 (08:42→13:07)
[2024-06-15] MEDS: Venlafaxine HCl 25 MG Tablet 37.5 MG PO (09:11)
[2024-06-15] MEDS: 0.9% Saline Lock 10 ML Syringe IV ×3 (09:12→21:00)
[2024-06-15] MEDS: APIXABAN 2.5 MG TABLET (WCH) PO ×2 (09:12→21:04)
[2024-06-15] MEDS: amLODIPine 5 MG Tablet PO (09:12)
--- NOTE | 2024-06-15 10:38 | CASEMGMT ---
CALIXTO YOUNG Assessment: Face to Face with pt for initial transition planning/care coordination assessment. CALIXTO YOUNG introduced self and role at [facility], pt voices understanding and consents to assessment. Pt is A&O x4 and answers all questions appropriately at this time. Pt sitting up in chair in no distress. Care providers, pharmacy, and demographics verified/updated. Admitting Dx: worsening weakness Strata Score: 2 PCP:Quint[place] Specialists:Maria A fleming at [place], pt thinks this is the name of the doctor Preferred Pharmacy: [facility] Insurance: [facility] Prescription Benefit: yes LNOK: Melody Jiménez, sister in law; Stevo Byrd, grandson Living Arrangements: Pt lives with grandson in a single story home with 2 steps to enter. Pt reports that she was I in ADLs and all IADLs prior to this hospitalization up to the previous 3 days. Pt states she then started using a rollator with ambulation. Transportation: Pt drives self and denies concerns with transportation. DME:rollator- Pt states her future grand dtr in law is an OT and has evaluated her home for DME and can't find much that is needed. HHC/SNF: Denies hx of Pt states she would like to go to [facility] prior to returning home. Pt states her goal is to be able to walk without a walker. Pt does not feel at this time that going home with HH therapy would be enough for her. Pt denies need for a list of other options for a SNF unless [facility] cannot [facility] her. Pt states no further concerns/needs. CM to follow. Advised pt to ask CM if any further questions/concerns/needs arise, voices understanding. Pt Goal: [facility] to be able to walk without a device again Plan: [facility] pending acceptance Lorne DE LUNA CM
[2024-06-15] MEDS: 0.9% Normal Saline (100mL Bag) 100 ML 15 ML IV ×2 (12:32→21:01)
[2024-06-15 13:45] LABS: Protein, Urine (Random) 32.6 mg/dL (0.0-12.0); Protein:Creat Ratio 426 mg/g CRE (0-200)
[2024-06-15 14:26] LABS: Vancomycin, Trough Level 6.3 ug/mL (5.0-15.0)
--- NOTE | 2024-06-15 14:42 | PCM.RX.CS ---
Consult Antibiotic Management Pharmacy has been consulted to manage selected antibiotic: Vancomycin Type of Intervention Type of Consult: Follow-up Prior Doses of Antibiotics Prior Doses of Antibiotics Received/Current Regimen: current dose is vanc 750mg IV q12h Labs Labs: Sodium 139 mmol/L (133-145) 06/14/24 07:05 Potassium 3.0 mmol/L (3.3-5.1) L 06/14/24 07:05 Chloride 104 mmol/L (98-108) 06/14/24 07:05 Carbon Dioxide 25.6 mmol/L (21.0-32.0) 06/14/24 07:05 Anion Gap 10 (5-15) 06/14/24 07:05 BUN 7 mg/dL (4-19) 06/14/24 07:05 Creatinine 0.53 mg/dL (0.70-1.20) L 06/14/24 07:05 Est GFR (MDRD) Non-Af 94 (>60) 06/14/24 07:05 BUN/Creatinine Ratio 13.2 RATIO (10-20) 06/14/24 07:05 Glucose 131 mg/dL (70-99) H 06/14/24 07:05 Vancomycin Trough 6.3 ug/mL (5.0-15.0) 06/15/24 13:35 Dosing Weight Weight used for dosin lb 5.41 oz Estimated Creatinine Clearance Estimated Creatinine Clearance: 56.5ml/min Goal Trough Goal Trough: 15-20 mcg/mL Pharmacy Plan for Drug Dosing Pharmacy Plan for Drug Dosing: The vanc trough drawn at 13:35 today (drawn approximately 11 hours after the last dose) was 6.3mcg/ml. This is well below goal range so will increase dose to 1500mg IV q12h. Hesitant to increase the dose further at this point since the patient is 78 years old and has only had a dose of 2000mg and two doses of 750mg so far. Will check another trough before the 4th dose of 1500mg. Pharmacy Service will continue to monitor and adjust dosing as required. Follow-Up Labs Follow-Up Labs: Trough: Vancomycin Date/Time Labs Ordered Labs to be done on [date and time ordered]: 06/17/24 02:30
--- NOTE | 2024-06-15 15:20 | PCM.PN.HOSP ---
Reason for Visit Reason for Visit: Diagnoses Weakness (06/14/24) Objective Data Objective Data Vital Signs: Vital Signs Temp Pulse Resp BP Pulse Ox O2 Del Method O2 Flow Rate 99.2 F H 92 18 113/68 100 Room Air 2 06/15/24 08:49 06/15/24 08:49 06/15/24 08:49 06/15/24 08:49 06/15/24 08:49 06/15/24 09:06 06/15/24 05:41 Oxygen Flow Rate (L/min) 2 Oxygen Delivery Method Room Air Weight: 180 lb 5.41 oz Body Mass Index (BMI) 33.0 Intake & Output: Intake and Output for Last 24 Hours 06/13/24 06/14/24 06/15/24 23:59 23:59 23:59 Intake Total 1999 1895 / 1895 815 / 815 Output Total 500 / 500 Balance 1999 1395 / 1395 815 / 815 Lab / Micro Data 06/14/24 07:05 06/14/24 07:05 Labs: Laboratory Results - last 24 hr 06/13/24 07:15: Ur Total Protein 24 Hr Cancelled, Urine Total Protein Cancelled, Urine Albumin Cancelled, U Uirkh-8-Cpfyirxh Cancelled, U Tvyma-2-Fqcbkoib Cancelled, U Beta Globulin Cancelled, U Gamma Globulin Cancelled, U PEP M-Bill Cancelled, U PEP M-Bill 24 Hr Cancelled, Urine Immunofixation Cancelled, Urine TOYIN Interpret Cancelled 06/13/24 12:07: U Random Total Protein 32.6 H, Urine Creatinine 76.60, Protein/Creatinin Ratio 426 H 06/15/24 13:35: Vancomycin Trough 6.3 Physical Exam Narrative Seen and examined. She refused for colonoscopy to me and Dr. Naylor. She states she still has generalized weakness and wants to go to SNF. She did not had low urinary tract symptoms but was given antibiotic on the basis of abnormal UA. She did not feel better. On chart review it seems patient has right colonic thickening/mass but patient refused for colonoscopy in the past. She also had colonoscopy about 3 weeks ago and from the note it seems pathology was negative. Denies fever or chills Physical exam General: Alert, Oriented x3, Cooperative. BMI 33.0 kg/m? HEENT: Atraumatic, PERRLA, EOMI, Normocephalic Oral: No Gingival or Mucosal Lesions/ Ulcerations Neck: Supple, No JVD, Negative Carotid Bruits Chest wall/Lungs: Air entry diminished, more in left lung base no crepitation/rhonchi Cardiovascular: Regular rate, Regular Rhythm, Normal S1, Normal S2, No M/G/R Abdomen: Bowel Sounds Present, Soft, Non Tender, Non-Distended : No dysuria. No renal angle tenderness. No suprapubic tenderness. Extremities: No edema, Capillary Refill Less than 3 Seconds Skin: No rashes, No breakdown Musculoskeletal: No Tenderness to Palpation of Joints or Extremities. Muscle strength 5/5 at knees and hip joints. Neurological: Cranial nerves II-XII grossly intact, DTR 2+/4. No acute focal neurological deficit. Psych/Mental Status: Normal Affect, Appropriate. Assessment & Plan Assessment/Plan (1) Generalized weakness: PLAN: Plan Patient is a 78-year-old female who presented to [facility] ED on 06/13/2024 with worsening weakness over past 4 to 5 days. She is having difficulty in getting up and ambulate. She was given antibiotic [facility] for presumed UTI but she did not get better. 1. Acute on chronic debility ? Admit under observation status to [facility]. PT/OT/case management consulted. On exam patient with good muscle strength of hip and knee joints. Has mild gait imbalance sometimes. Probably from chronic disease including osteoarthritis with suspected underlying malignancy 2. Concern for postobstructive pneumonia, ? CTA chest showed dense left lower lobe consolidation with concern for possible postobstructive pneumonia; see HPI for further details on this. UA mildly infectious appearing. Urine culture from 06/11 growing only 11 K -25,000 gram-negative rods therefore UTI ruled out. she has been treated with Keflex since for UTI without much improvement. Patient did not have IV and vancomycin. Agriscience Technology Instructor consulted. 06/15: [facility] but she states he needs to go to senior living to get her to go home therefore could not be discharged. 3. Concern for malignancy: Previous CT scan abdomen/ shows focal irregular wall thickening of cecum and ascending colon with luminal narrowing suggestive of neoplasm. There is similar finding in December 2020 but at that time patient refused for colonoscopy. Patient continues to have normal stools and reports no right-sided abdominal pain. Other concerning findings include right expansile lytic lesion of right acromion with associated pathologic fracture, mildly enlarged subcarinal and left hilar lymph nodes, L4 vertebral body 1.4 cm sclerotic lesion, and prominent retroperitoneal and right lower quadrant lymph nodes. GI consulted 06/15: Patient refused for colonoscopy. She was upset when she was started on clear liquid yesterday. 4. Persistent sinus tachycardia ? Sinus tachycardia to the 120s to low 130s in the ED. improved with IV fluid 5. Left lower lobe consolidative mass ? See HPI for further details. In short, was found to have consolidative mass in December and recently had bronchoscopy with biopsy done in early May with biopsy results negative for malignancy. Chronic medical conditions: ? Class I obesity: BMI 33 on admit. Complicates hospital course, care and prognosis. ? Hypertension: Continue home amlodipine. ? Hyperlipidemia: Continue home statin. ? Anxiety/depression: Continue home venlafaxine and chlordiazepoxide twice daily as needed. ? 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 ? Recent GI bleed: Had GI bleed in December that was suspected secondary to supratherapeutic INR while patient was on warfarin. Patient refused EGD or colonoscopy. GI bleed resolved with improvement in INR and hemoglobin has since improved. DVT prophylaxis: Not indicated, on Eliquis CODE STATUS: DNR CCA, DNI Charges/Coding Visit Charges Inpatient E&M: 65120 Subs Hosp L2
[2024-06-15] MEDS: Vancomycin HCl 1,500 MG in 0.9% Normal Saline (500mL Bag) 500 ML 250 MG IV (15:48)
--- NOTE | 2024-06-15 18:00 | CASEMGMT ---
Social work -discharge planning/support Collaboration with patient's nurse Sydney and RN HANNAH Tate today. It was relayed to this typewriter mechanic that patient is interested in outpatient mental health services for support related to psychosocial stressors including loss and grief. For discharge planning the patient is interested in the short-term skilled stay before returning home. Patient is interested in [facility] transitional care unit. Referral made to [facility] transitional care unit. Per Jesusita patient can be accepted. There would be a bed available as of 06/17/24. Met with patient in room, introducing to self and social work role. Patient receptive and welcomes social work visit. Updated patient to discharge planning status with transitional care unit. Patient confirms desire for short-term skilled stay before returning home. Explored patient's current emotional health and stressors. Patient shared that patient's daughter Farheen unexpectedly on an operating table on 07/09/2023. Patient shared prior to this, about 2 years ago patient's was placed at [facility] living in the dementia/memory care unit. Patient reflective about grief issues related to the 's progressing dementia and then the daughter's sudden . Patient shared to have an only grandson, Stevo, who lives with the patient and who the patient feels dedicated to. Patient reflected on her role as the matriarch of the family, with time shared between visits with patient's and also time with Stevo. Stevo is engaged to be and looking at his own future, which patient reports desire to be a part of, and be as present as possible. Patient shared to be dealing with own health issues, to have several masses in her body. Patient states no one has outright said the masses are malignant, but patient has been contemplating what cancer would mean for the patient. Patient reports to feel adamant that would not want to seek curative treatment such as chemo, as does not want to be sick, wants to have as much quality as possible where can be present and continue to be the person that patient's and patient's grandson count on. Patient has contemplated eventually moving into assisted living too, but does not yet feel this is the right timing for such a change. Patient acknowledges that having so much change is hard and would like to have someone to talk with. Reports has been to counseling in the past, in [place] but due to issues with steps at the counselors office stopped going. Tried a bereavement specialist at hospice, but did not care for this programming. Patient is open to going to a counselor in [place], but does not want to go anywhere in [place], due to knowing many people there. Much supportive listening, reflection, empathy, and validation provided to patient as patient voiced thoughts, feelings relating to loss/grief and hopes for the present and future. Patient denies any thoughts, plans, intent for suicide, and was future focused, looking to increase support for self in the coming months. Patient expressed much appreciation for social work visit and support offered. Educated that can provide patient with options for the community, which patient expressed agreement. Explored whether patient would be interested in best worker visit,which patient reports had a visit yesterday and was appreciative of this as well. Patient reports to have advance directives and agrees to reach out to paper folder's office to have documents, POAHC and Living Will emailed to this typewriter mechanic. Patient agreeable and desiring a list of counselors, but also agreed it would be better to have such list, closer to time of discharging back to community. Plan for handoff to TCU oncology social work. Plan: Anticipate [facility] TCU, skilled level of care. SW remains available for support as needed. -EMILIA Cortez
[2024-06-15] MEDS: Atorvastatin Calcium 40 MG Tablet PO (21:03)
[2024-06-15] MEDS: Nystatin Powder 15gm Bottle 1 APPLIC TOPICAL (21:04)
--- NOTE | 2024-06-15 22:10 | NURSING ---
24 hour urine collections started 06/15/24 at 1915.
[2024-06-15] MEDS: MELATONIN 3 MG TABLET PO (22:43)
[2024-06-16] MEDS: Vancomycin HCl 1,500 MG in 0.9% Normal Saline (500mL Bag) 500 ML 250 MG IV ×2 (04:32→14:46)
[2024-06-16 04:36] VITALS: BP 110/63; PULSE 87; RESP 16; TEMP 37.1; O2SAT 93
[2024-06-16] MEDS: 0.9% Saline Lock 10 ML Syringe IV (05:55)
[2024-06-16] MEDS: Piperacil/Tazobactam 3.375 GM in 0.9% Normal Saline (50mL MB+) 50 ML IV ×3 (05:56→22:30)
[2024-06-16 08:36] VITALS: BP 118/76; PULSE 90; RESP 18; TEMP 36.2; O2SAT 93; O2SAT 95
[2024-06-16] MEDS: amLODIPine 5 MG Tablet PO (08:40)
[2024-06-16] MEDS: Nystatin Powder 15gm Bottle 1 APPLIC TOPICAL ×2 (08:40→22:30)
[2024-06-16] MEDS: Ferrous Sulfate 325 MG Tablet PO ×2 (08:40→17:17)
[2024-06-16] MEDS: Venlafaxine HCl 25 MG Tablet 37.5 MG PO (08:41)
[2024-06-16] MEDS: APIXABAN 2.5 MG TABLET (WCH) PO (08:41)
[2024-06-16 15:53] VITALS: BP 120/69; PULSE 89; RESP 18; TEMP 36.3; O2SAT 93
--- NOTE | 2024-06-16 16:05 | PN.HOSP_ITS ---
Reason for Visit Reason for Visit: Diagnoses Weakness (06/14/24) Objective Data Objective Data Vital Signs: Vital Signs Temp Pulse Resp BP Pulse Ox O2 Del Method O2 Flow Rate 97.4 F L 89 18 120/69 93 Room Air 2 06/16/24 15:53 06/16/24 15:53 06/16/24 15:53 06/16/24 15:53 06/16/24 15:53 06/16/24 15:53 06/15/24 05:41 Oxygen Flow Rate (L/min) 2 Oxygen Delivery Method Room Air Weight: 180 lb 5.41 oz Body Mass Index (BMI) 33.0 Intake & Output: Intake and Output for Last 24 Hours 06/14/24 06/15/24 06/16/24 23:59 23:59 23:59 Intake Total 1895 / 1895 2195 / 2195 730 / 730 Output Total 500 / 500 600 / 600 Balance 1395 / 1395 2195 / 2195 130 / 130 Lab / Micro Data 06/14/24 07:05 06/14/24 07:05 Physical Exam Narrative Seen and examined. Waiting for pre-CERT for rehab. She refused for colonoscopy to me and Dr. Friend. She did not had low urinary tract symptoms but was given antibiotic on the basis of abnormal UA. She did not feel better. On chart review it seems patient has right colonic thickening/mass but patient refused for colonoscopy in the past. She also had colonoscopy about 3 weeks ago and from the note it seems pathology was negative. Denies fever or chills Physical exam General: Alert, Oriented x3, Cooperative. BMI 33.0 kg/m? HEENT: Atraumatic, PERRLA, EOMI, Normocephalic Oral: No Gingival or Mucosal Lesions/ Ulcerations Neck: Supple, No JVD, Negative Carotid Bruits Chest wall/Lungs: Air entry diminished, more in left lung base no crepitation/rhonchi Cardiovascular: Regular rate, Regular Rhythm, Normal S1, Normal S2, No M/G/R Abdomen: Bowel Sounds Present, Soft, Non Tender, Non-Distended : No dysuria. No renal angle tenderness. No suprapubic tenderness. Extremities: No edema, Capillary Refill Less than 3 Seconds Skin: No rashes, No breakdown Musculoskeletal: No Tenderness to Palpation of Joints or Extremities. Muscle strength 5/5 at knees and hip joints. Neurological: Cranial nerves II-XII grossly intact, DTR 2+/4. No acute focal neurological deficit. Psych/Mental Status: Normal Affect, Appropriate. Assessment & Plan Assessment/Plan (1) Generalized weakness: PLAN: Plan Patient is a 78-year-old female who presented to [facility] ED on 06/13/2024 with worsening weakness over past 4 to 5 days. She is having difficulty in getting up and ambulate. She was given antibiotic [facility] for presumed UTI but she did not get better. 1. Acute on chronic debility ? Admit under observation status to [facility]. PT/OT/case management consulted. On exam patient with good muscle strength of hip and knee joints. Has mild gait imbalance sometimes. Probably from chronic disease including osteoarthritis with suspected underlying malignancy 06/16: Probably patient be discharged to TCU tomorrow. 2. Concern for postobstructive pneumonia, ? CTA chest showed dense left lower lobe consolidation with concern for possible postobstructive pneumonia; see HPI for further details on this. UA mildly infectious appearing. Urine culture from 06/11 growing only 11 K -25,000 gram- negative rods therefore UTI ruled out. she has been treated with Keflex since for UTI without much improvement. Patient did not have IV and vancomycin. Drawing Kiln Operator consulted. 06/15: [facility] but she states he needs to go to longterm to get her to go home therefore could not be discharged. 3. Concern for malignancy: Previous CT scan abdomen/ shows focal irregular wall thickening of cecum and ascending colon with luminal narrowing suggestive of neoplasm. There is similar finding in December 2020 but at that time patient refused for colonoscopy. Patient continues to have normal stools and reports no right-sided abdominal pain. Other concerning findings include right expansile lytic lesion of right acromion with associated pathologic fracture, mildly enlarged subcarinal and left hilar lymph nodes, L4 vertebral body 1.4 cm sclerotic lesion, and prominent retroperitoneal and right lower quadrant lymph nodes. GI consulted 06/15: Patient refused for colonoscopy. She was upset when she was started on clear liquid yesterday. 4. Persistent sinus tachycardia ? Sinus tachycardia to the 120s to low 130s in the ED. improved with IV fluid 5. Left lower lobe consolidative mass ? See HPI for further details. In short, was found to have consolidative mass in December and recently had bronchoscopy with biopsy done in early May with biopsy results negative for malignancy. Chronic medical conditions: ? Class I obesity: BMI 33 on admit. Complicates hospital course, care and prognosis. ? Hypertension: Continue home amlodipine. ? Hyperlipidemia: Continue home statin. ? Anxiety/depression: Continue home venlafaxine and chlordiazepoxide twice daily as needed. ? 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 ? Recent GI bleed: Had GI bleed in December that was suspected secondary to supratherapeutic INR while patient was on warfarin. Patient refused EGD or colonoscopy. GI bleed resolved with improvement in INR and hemoglobin has since improved. DVT prophylaxis: Not indicated, on Eliquis CODE STATUS: DNR CCA, DNI Charges/Coding Visit Charges Inpatient E&M: 07271 Subs Hosp L2
--- NOTE | 2024-06-16 16:10 | CASEMGMT ---
Noted therapy session this date. RN CM into pt room, pt states she does feel safe to dc home although she would've liked to have gone to [facility] TCU. Pt states she did walk without walker today. Pt would be interested in doing outpt therapy once home. Pt states she can provide her own transportation. Updated SW as well as hospitalist.
[2024-06-16 21:00] VITALS: BP 128/77; PULSE 92; RESP 15; TEMP 36.8; O2SAT 93
[2024-06-16 22:00] VITALS: O2SAT 93
[2024-06-17 03:30] LABS: Creatinine, Serum 0.54 mg/dL (0.70-1.20); EST Glomerular Filtration Rate 94 (>60); Estimated Creatinine Clearance 56.51 ml/min (50-250)
[2024-06-17 03:31] VITALS: BP 125/76; PULSE 85; RESP 15; TEMP 36.9; O2SAT 92
[2024-06-17 03:35] LABS: Vancomycin, Trough Level 15.7 ug/mL (5.0-15.0)
[2024-06-17] MEDS: APIXABAN 2.5 MG TABLET (WCH) PO ×2 (03:35→08:34)
[2024-06-17] MEDS: Atorvastatin Calcium 40 MG Tablet PO (03:35)
[2024-06-17] MEDS: Vancomycin HCl 1,500 MG in 0.9% Normal Saline (500mL Bag) 500 ML 250 MG IV (03:50)
--- NOTE | 2024-06-17 03:57 | PCM.RX.CS ---
Consult Antibiotic Management Pharmacy has been consulted to manage selected antibiotic: Vancomycin Type of Intervention Type of Consult: Follow-up Labs Labs: Sodium 139 mmol/L (133-145) 06/14/24 07:05 Potassium 3.0 mmol/L (3.3-5.1) L 06/14/24 07:05 Chloride 104 mmol/L (98-108) 06/14/24 07:05 Carbon Dioxide 25.6 mmol/L (21.0-32.0) 06/14/24 07:05 Anion Gap 10 (5-15) 06/14/24 07:05 BUN 7 mg/dL (4-19) 06/14/24 07:05 Creatinine 0.54 mg/dL (0.70-1.20) L 06/17/24 02:29 Est GFR (MDRD) Non-Af 94 (>60) 06/17/24 02:29 BUN/Creatinine Ratio 13.2 RATIO (10-20) 06/14/24 07:05 Glucose 131 mg/dL (70-99) H 06/14/24 07:05 Vancomycin Trough 15.7 ug/mL (5.0-15.0) H 06/17/24 02:29 Dosing Weight Weight used for dosin kg Estimated Creatinine Clearance Estimated Creatinine Clearance: 57 Goal Trough Goal Trough: 15-20 mcg/mL Pharmacy Plan for Drug Dosing Pharmacy Plan for Drug Dosing: Vancomycin trough level of 15.7, drawn 11.75hrs post-dose, was within the target range of 15-20. Will continue dosing at 1500mg q12h, and will draw another trough level in two days. Pharmacy Service will continue to monitor and adjust dosing as required. Follow-Up Labs Follow-Up Labs: Trough: Vancomycin Date/Time Labs Ordered Labs to be done on [date and time ordered]: 06/19/24 @0230
[2024-06-17] MEDS: Piperacil/Tazobactam 3.375 GM in 0.9% Normal Saline (50mL MB+) 50 ML IV (06:22)
[2024-06-17 06:41] LABS: Anion Gap 10 (5-15); BUN 7 mg/dL (4-19); BUN/Creat Ratio 14.2 RATIO (10-20); Calcium,Total 8.8 mg/dL (7.6-11.0); Carbon Dioxide 27.3 mmol/L (21.0-32.0); Chloride 102 mmol/L (98-108); Creatinine, Serum 0.49 mg/dL (0.70-1.20); EST Glomerular Filtration Rate 96 (>60); Estimated Creatinine Clearance 56.51 ml/min (50-250); Glucose 123 mg/dL (70-99); Potassium 3.2 mmol/L (3.3-5.1); Sodium Level 140 mmol/L (133-145)
[2024-06-17 07:38] VITALS: O2SAT 95
[2024-06-17] MEDS: Venlafaxine HCl 25 MG Tablet 37.5 MG PO (08:34)
[2024-06-17] MEDS: amLODIPine 5 MG Tablet PO (08:34)
[2024-06-17] MEDS: Ferrous Sulfate 325 MG Tablet PO (08:34)
[2024-06-17] MEDS: Nystatin Powder 15gm Bottle 1 APPLIC TOPICAL (08:36)
[2024-06-17 09:08] VITALS: BP 113/87; PULSE 92; RESP 18; TEMP 36.5; O2SAT 94
--- NOTE | 2024-06-17 10:15 | CASEMGMT ---
Social Work SARAH spoke with Jesusita in TCU. SARAH and Jesusita discussed pt's function with therapy. Pt currently walking greater than 200ft without an assistive device and at SBA. All ADL's are currently at SBA. Pt does not meet qualifications for skilled level of care at this time. RNCM aware and to speak with pt regarding home going needs. VILMA Gray
--- NOTE | 2024-06-17 10:22 | CASEMGMT ---
Addendum entered by Lea Velez 06/17/24 11:49: Received confirmation from Lety at [facility] that they will see pt if SN is added. Plan for SOC tomorrow. CALIXTO YOUNG into pt room, pt is agreeable to this and aware that [facility] will be in touch with her. She denies further needs. Addendum entered by Lea Velez 06/17/24 11:06: 1040- TC to [facility], referral left via vm. Original Note: CALIXTO YOUNG into pt room to discuss dc planning. Pt states she prefers C. Discussed homebound status and pt feels she meets criteria. Pt plans to use walker at home due to her recent falls. Plan on PT only, pt denies need for a SN. Patient was provided a list of [facility] providers including quality and resource use data and consistent with the patient?s preferred geographic region, medical needs, and insurance network were provided from the [employer] Guide. Pt reviewed list and chose 1. [facility] 2. [facility].
--- NOTE | 2024-06-17 10:35 | PCM.DC ---
Discharge Instructions Diet Discharge Diet: No restrictions DC O2, CPAP, BIPAP needs Home O2 Discharge instructions: No Dressing / Incision Discharge Activity: Return to Normal Activity Weight Bearing Status: Weight bearing as tolerated Dressing / Incision Call your doctor if you observe: Fever of 101 or Higher, Coldness, Increased Pain, Numbness or Tingling, Change in Color, Inability to urinate, Inability to have a bowel movement, Shortness of breath, Dizziness, Fainting spells, Swelling in the ankles, Chest pain, Prolonged hiccupping, Increased palpitations (irregular heartbeat) and Calf discomfort Follow Up Care When: IN 2 WEEKS Test Results: Test results from this visit will be discussed in further detail at your follow-up appointment, if applicable. Discharge Plan Admission Admit Date/Time: 06/14/24 11:35 Primary Reason for Your Visit: Generalized weakness Attending Provider: Curt Henderson Primary Care Provider: Cole Shipley Consulting Providers: Art Rivas Additional Instructions / Restrictions: Follow-up with the first line production supervisor in [facility] Dr. Cervantes Discharge Orders/Prescriptions Prescriptions: New amoxicillin-pot clavulanate 875-125 mg tablet 1 tab PO BID 5 Days Qty: 10 0RF doxycycline monohydrate 100 mg tablet 100 mg PO BID 5 Days Qty: 10 0RF Continued (DME) blood pressure monitor Kit See Rx Instructions .ROUTE .MEDSUPPLY Qty: 1 0RF Rx Instructions: As directed atorvastatin 40 mg tablet See Rx Instructions .ROUTE .COMPLEX Qty: 90 2RF Dose Instruction: TAKE 1 TABLET DAILY Rx Instructions: TAKE 1 TABLET DAILY Eliquis 2.5 mg tablet 2.5 mg PO BID Qty: 180 1RF ferrous sulfate [Feosol] 325 mg (65 mg iron) tablet 650 mg PO QDAY amlodipine 5 mg tablet 5 mg PO DAILY Qty: 90 1RF betamethasone dipropionate 0.05 % cream 1 applic TOPICAL DAILY PRN (Reason: rash) Qty: 45 1RF cephalexin 250 mg capsule 250 mg PO 4X/DAY meclizine 25 mg tablet 25 mg PO BID PRN (Reason: dizziness) venlafaxine 37.5 mg tablet 37.5 mg PO QDAY Qty: 90 1RF chlordiazepoxide HCl 5 mg capsule 10 mg PO Q12H PRN (Reason: anxiety) Qty: 60 0RF (DME) handicap placard See Rx Instructions .Route .MEDSUPPLY Qty: 1 0RF Rx Instructions: Duration 5 years, difficulty with ambualation. Referrals / Follow Up: Cole Shipley DO [Primary Care Provider] - Within 2 Weeks Disposition Disposition (needs filled in before D/C Order can be placed): Home Health Service
--- NOTE | 2024-06-17 10:39 | CASEMGMT ---
Social Work Referral to TCU cancelled. VILMA Santacruz
--- NOTE | 2024-06-17 12:01 | DS.PCM_ITS ---
Providers Date of Admission: 06/14/24 Date of Discharge: 06/17/24 Primary Care Physician: Dr. Cole Shipley, DO Consultations 06/14/24 10:42 Consult: Gastroenterology Routine Consulting Provider: [facility] Reason for Consult: right sided colon/cecum suspected mass//thickening EMERGENT Consult: No MD Notified: Yes Date Notified: 06/14/24 Time Notified: 10:42 Method of Notification: Text Reason For Visit: WORSENING WEAKNESS Diagnosis Discharge Diagnosis (1) Generalized weakness: Status: Acute Code(s): R53.1 - Weakness Plan Patient is a 78-year-old female who presented to [facility] ED on 06/13/2024 with worsening weakness over past 4 to 5 days. She is having difficulty in getting up and ambulate. She was given antibiotic [facility] for presumed UTI but she did not get better. 1. Acute on chronic debility ? Admit under observation status to [facility]. PT/OT/case management consulted. On exam patient with good muscle strength of hip and knee joints. Has mild gait imbalance sometimes. Probably from chronic disease including osteoarthritis with suspected underlying malignancy 06/16: Probably patient be discharged to TCU tomorrow. 06/17: As per machine adjuster leader case trim, she did not meet criteria for discharge to SNF therefore being discharged home with Augmentin. 2. Concern for postobstructive pneumonia, ? CTA chest showed dense left lower lobe consolidation with concern for possible postobstructive pneumonia; see HPI for further details on this. UA mildly infectious appearing. Urine culture from 06/11 growing only 11 K -25,000 gram- negative rods therefore UTI ruled out. she has been treated with Keflex since for UTI without much improvement. Patient did not have IV and vancomycin. Bracelet Maker Novelty consulted. 06/15: Patient stated she has follow-up with [facility] Dr. Cervantes tomorrow but she states he needs to go to long-term to get her to go home therefore could not be discharged. 06/17: Patient 4 days of IV antibiotics here. Discharged on 5 more days of Augmentin and doxycycline. Advised to follow-up with the sand digger as mentioned above in 2 weeks. 3. Concern for malignancy: Previous CT scan abdomen/ shows focal irregular wall thickening of cecum and ascending colon with luminal narrowing suggestive of neoplasm. There is similar finding in December 2020 but at that time patient refused for colonoscopy. Patient continues to have normal stools and reports no right-sided abdominal pain. Other concerning findings include right expansile lytic lesion of right acromion with associated pathologic fracture, mildly enlarged subcarinal and left hilar lymph nodes, L4 vertebral body 1.4 cm sclerotic lesion, and prominent retroperitoneal and right lower quadrant lymph nodes. GI consulted 06/15: Patient refused for colonoscopy. She was upset when she was started on clear liquid yesterday. 4. Persistent sinus tachycardia ? Sinus tachycardia to the 120s to low 130s in the ED. improved with IV fluid 5. Left lower lobe consolidative mass ? See HPI for further details. In short, was found to have consolidative mass in December and recently had bronchoscopy with biopsy done in early May with biopsy results negative for malignancy. Chronic medical conditions: ? Class I obesity: BMI 33 on admit. Complicates hospital course, care and prognosis. ? Hypertension: Continue home amlodipine. ? Hyperlipidemia: Continue home statin. ? Anxiety/depression: Continue home venlafaxine and chlordiazepoxide twice daily as needed. ? 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 ? Recent GI bleed: Had GI bleed in December that was suspected secondary to supratherapeutic INR while patient was on warfarin. Patient refused EGD or colonoscopy. GI bleed resolved with improvement in INR and hemoglobin has since improved. DVT prophylaxis: Not indicated, on Eliquis CODE STATUS: DNR CCA, DNI Discharge medication reconciliation done. Discharge follow-up instructions completed. Discharge process discussed with the patient and all questions were answered to patient's satisfaction. Follow with PCP in 1 to 2 weeks Total time spent, exact 35 minutes on discharge meds reconciliation, examination, coordination of care with nurses and ancillary staff, review of imaging and blood test and discussion with the patient on follow-up instructions. Medications at Discharge Home Medications blood pressure monitor #1 ea 06/02/23 venlafaxine 37.5 mg tablet 37.5 mg PO QDAY #90 tabs 07/11/23 atorvastatin 40 mg tablet See Rx Instructions .Route .COMPLEX #90 tabs 08/19/23 chlordiazepoxide HCl 5 mg capsule 10 mg (2 x 5 mg) PO Q12H PRN anxiety #60 caps 12/24/23 apixaban 2.5 mg tablet (Eliquis) 2.5 mg PO BID #180 tabs 02/04/24 amlodipine 5 mg tablet 5 mg PO DAILY #90 tabs 03/23/24 betamethasone dipropionate 0.05 % topical cream 1 applic topical DAILY PRN rash #45 grams 03/23/24 ferrous sulfate 325 mg (65 mg iron) tablet (Feosol) 650 mg PO QDAY 03/23/24 handicap placard #1 ea 05/26/24 cephalexin 250 mg capsule 250 mg PO 4X/DAY 06/11/24 meclizine 25 mg tablet 25 mg PO BID PRN dizziness 06/12/24 amoxicillin 875 mg-potassium clavulanate 125 mg tablet 1 tab PO BID 5 days #10 tabs 06/17/24 doxycycline monohydrate 100 mg tablet 100 mg PO BID 5 days #10 tabs 06/17/24 Physical Exam Narrative Seen and examined. No acute issues. Denies fever or chills Physical exam General: Alert, Oriented x3, Cooperative. BMI 33.0 kg/m? HEENT: Atraumatic, PERRLA, EOMI, Normocephalic Oral: No Gingival or Mucosal Lesions/ Ulcerations Neck: Supple, No JVD, Negative Carotid Bruits Chest wall/Lungs: Air entry diminished, more in left lung base. No crepitation/rhonchi Cardiovascular: Regular rate, Regular Rhythm, Normal S1, Normal S2, No M/G/R Abdomen: Bowel Sounds Present, Soft, Non Tender, Non-Distended : No dysuria. No renal angle tenderness. No suprapubic tenderness. Extremities: No edema, Capillary Refill Less than 3 Seconds Skin: No rashes, No breakdown Musculoskeletal: No Tenderness to Palpation of Joints or Extremities. Muscle strength 5/5 at knees and hip joints. Neurological: Cranial nerves II-XII grossly intact, DTR 2+/4. No acute focal neurological deficit. Psych/Mental Status: Normal Affect, Appropriate. Weight / BMI Weight Weight: 180 lb 5.41 oz Body Mass Index (BMI) 33.0 ABG / Lab / Microbiology Data 06/14/24 07:05 06/17/24 05:16 Laboratory: Laboratory Results - last 24 hr 06/17/24 02:29: Creatinine 0.54 L, Estim Creat Clear Calc 56.51, Est GFR (MDRD) Non-Af 94, Vancomycin Trough 15.7 H 06/17/24 05:16: Sodium 140, Potassium 3.2 L, Chloride 102, Carbon Dioxide 27.3, Anion Gap 10, BUN 7, Creatinine 0.49 L, Estim Creat Clear Calc 56.51, Est GFR (MDRD) Non-Af 96, BUN/Creatinine Ratio 14.2, Glucose 123 H, Calcium 8.8 D/C Instructions Discharge Diet: No restrictions Weight Bearing Status: Weight bearing as tolerated Call your doctor if you observe: Fever of 101 or Higher, Coldness, Increased Pain, Numbness or Tingling, Change in Color, Inability to urinate, Inability to have a bowel movement, Shortness of breath, Dizziness, Fainting spells, Swelling in the ankles, Chest pain, Prolonged hiccupping, Increased palpitations (irregular heartbeat) and Calf discomfort DC O2, CPAP, BIPAP Needs Home O2 Discharge instructions: No When: IN 2 WEEKS Meaningful Use Info Meaningful Use Meaningful Use Diagnoses (Choose all that apply): None applicable Ischemic Stroke Statin Dosing Therapy Reference: STATIN DOSE THERAPY REFERENCE: * Patients > 75 years receive moderate or high dose statin therapy. * Patients 75 years or YOUNGER should receive HIGH intensity statin dose unless contraindicated. You will be required to document reason for non-treatment if statin daily dose does not meet guidelines. HIGH DOSE STATIN THERAPY DAILY Atorvastatin > than or = to 40 mg Rosuvastatin > than or = to 20 mg Amlodipine + Atorvastatin > than or = to 2.5/40 mg Ezetimibe + Simvastatin 10/80 mg Simvastatin 80mg Discharge Plan Admission Admit Date/Time: 06/14/24 11:35 Primary Reason for Your Visit: Generalized weakness Attending Provider: Curt Henderson Primary Care Provider: Cole Shipley Consulting Providers: Art Rivas Instructions Additional Instructions / Restrictions: Follow-up with the sand digger in [facility] Dr. Cervantes Discharge Orders/Prescriptions Prescriptions: New amoxicillin-pot clavulanate 875-125 mg tablet 1 tab PO BID 5 Days Qty: 10 0RF doxycycline monohydrate 100 mg tablet 100 mg PO BID 5 Days Qty: 10 0RF Continued (DME) blood pressure monitor Kit See Rx Instructions .ROUTE .MEDSUPPLY Qty: 1 0RF Rx Instructions: As directed atorvastatin 40 mg tablet See Rx Instructions .ROUTE .COMPLEX Qty: 90 2RF Dose Instruction: TAKE 1 TABLET DAILY Rx Instructions: TAKE 1 TABLET DAILY Eliquis 2.5 mg tablet 2.5 mg PO BID Qty: 180 1RF ferrous sulfate [Feosol] 325 mg (65 mg iron) tablet 650 mg PO QDAY amlodipine 5 mg tablet 5 mg PO DAILY Qty: 90 1RF betamethasone dipropionate 0.05 % cream 1 applic TOPICAL DAILY PRN (Reason: rash) Qty: 45 1RF cephalexin 250 mg capsule 250 mg PO 4X/DAY meclizine 25 mg tablet 25 mg PO BID PRN (Reason: dizziness) venlafaxine 37.5 mg tablet 37.5 mg PO QDAY Qty: 90 1RF chlordiazepoxide HCl 5 mg capsule 10 mg PO Q12H PRN (Reason: anxiety) Qty: 60 0RF (DME) handicap placard See Rx Instructions .Route .MEDSUPPLY Qty: 1 0RF Rx Instructions: Duration 5 years, difficulty with ambualation. Referrals / Follow Up: Cole Shipley DO [Primary Care Provider] - Within 2 Weeks Disposition Disposition (needs filled in before D/C Order can be placed): Home Health Service Charges/Coding Visit Charges Inpatient E&M: 22063 Disch Hosp >30min
[2024-06-17 13:22] VITALS: BP 118/68; PULSE 92; RESP 18; TEMP 36.2; O2SAT 94
[2024-06-18 17:08] LABS: Free Kappa Light Chains 22.6 mg/L (3.3-19.4); Free Lambda Light Chains 23.5 mg/L (5.7-26.3); Immunoglobulin A 155 mg/dL (64-422); Immunoglobulin G 788 mg/dL (586-1602); Immunoglobulin M 79 mg/dL (26-217); PROEL- A/G Ratio 0.7 (0.7-1.7); PROEL- Albumin 2.1 g/dL (2.9-4.4); PROEL- Alpha-1 Globulin 0.3 g/dL (0.0-0.4); PROEL- Beta Globulin 0.8 g/dL (0.7-1.3); PROEL- Gamma Globulin 0.8 g/dL (0.4-1.8); PROEL- Globulin, Total 2.9 g/dL (2.2-3.9); PROEL-M-Spike Not Observed g/dL (Not Observed)
[2024-06-21 16:08] LABS: Albumin, Ur 48.1 % (.); Alpha-1-Globulin, Ur 7.4 % (.); Alpha-2-Globulins, Ur 15.7 % (.); Beta Globulin, Ur 16.3 % (.); Gamma Globulin, Ur 12.5 % (.); M-Spike, Ur % Not Observed % (Not Observed); Total Protein, Ur 30.2 mg/dL (Not Estab.)
[2024-06-22 07:15] LABS: Protein, 24Ur 423 mg/24 hr (30-150)
== END 2024-06-17 13:58 | disposition home health service (06) | DRG 194 ==
LOC: ED 22:36 → MS3 22:42
PROVIDERS: Admitting Provider Hospitalist; Emergency Provider Emergency Medicine; PCP Family Medicine; Referring Provider Hospitalist; Visit Provider Internal Medicine
DX: J18.9 Pneumonia, unspecified organism (principal); M84.48XA Pathological fracture, other site, initial encounter for fracture; C18.9 Malignant neoplasm of colon, unspecified; N39.0 Urinary tract infection, site not specified; E66.811 Obesity, class 1; E78.00 Pure hypercholesterolemia, unspecified; D72.829 Elevated white blood cell count, unspecified; Z66 Do not resuscitate; I10 Essential (primary) hypertension; F32.A Depression, unspecified; E86.0 Dehydration; M19.90 Unspecified osteoarthritis, unspecified site; F41.9 Anxiety disorder, unspecified; M54.9 Dorsalgia, unspecified; R53.81 Other malaise; Z68.33 Body mass index [BMI] 33.0-33.9, adult; Z82.49 Family history of ischemic heart disease and other diseases of the circulatory system; Z86.718 Personal history of other venous thrombosis and embolism; Z79.01 Long term (current) use of anticoagulants; R53.1 Weakness; R79.1 Abnormal coagulation profile; Z87.01 Personal history of pneumonia (recurrent); R26.81 Unsteadiness on feet; Z79.899 Other long term (current) drug therapy; R00.0 Tachycardia, unspecified; R59.0 Localized enlarged lymph nodes; R91.8 Other nonspecific abnormal finding of lung field; R35.0 Frequency of micturition; R10.9 Unspecified abdominal pain
CPT/HCPCS: 36415; 71045; 71275; 74177; 80048; 80202; 81001; 81050; 82378; 82565; 82570; 82784; 83605; 83735; 83883; 84156; 84165; 84166; 85025; 85027; 85610; 85730; 86334; 86335; 87040; 87077; 87086; 87088; 87186; 93005; 94668; 96360; 96361; 97116; 97162; 97166; 97530; 97535; 99282; 99284; Q9967; A4216

== ENCOUNTER 2024-06-30 18:41 | Inpatient (IN) | payer MEDICARE, OTHER, SELFPAY ==
[2024-06-30 16:36] VITALS: BP 107/66; PULSE 98; RESP 18; TEMP 37.2; O2SAT 94; BMI 32.1
[2024-06-30] MEDS: Atorvastatin Calcium 40 MG Tablet PO (21:15)
[2024-06-30] MEDS: Acetaminophen 500 MG Tablet 1000 MG PO (21:15)
[2024-06-30] MEDS: APIXABAN 2.5 MG TABLET (WCH) PO (21:15)
[2024-06-30] MEDS: Nystatin Powder 15gm Bottle 1 APPLIC TOPICAL (21:25)
[2024-06-30] MEDS: Menthol/Lanolin/Calamine/Znox 113 GM Tube 1 APPLIC TOPICAL (21:25)
--- NOTE | 2024-06-30 21:51 | PCM.HP.STD ---
[facility] - General General Date of Admission: 06/30/24 Date of Service: 06/30/24 Chief Complaint: Here for rehabilitation. HPI Narrative Patient is a 78-year-old female who presented to [facility] ED on 06/13/2024 with worsening weakness over past 4 to 5 days. She is having difficulty in getting up and ambulate. She was given antibiotic [facility] for presumed UTI but she did not get better. 1. Acute on chronic debility ? Admit under observation status to [facility]. PT/OT/case management consulted. On exam patient with good muscle strength of hip and knee joints. Has mild gait imbalance sometimes. Probably from chronic disease including osteoarthritis with suspected underlying malignancy 06/16: Probably patient be discharged to TCU tomorrow. 06/17: As per dependency case manager, she did not meet criteria for discharge to SNF therefore being discharged home with Augmentin. 2. Concern for postobstructive pneumonia, ? CTA chest showed dense left lower lobe consolidation with concern for possible postobstructive pneumonia; see HPI for further details on this. UA mildly infectious appearing. Urine culture from 06/11 growing only 11 K -25,000 gram-negative rods therefore UTI ruled out. she has been treated with Keflex since for UTI without much improvement. Patient did not have IV and vancomycin. Multiple Launch Rocket System Crewmember consulted. 06/15: [facility] but she states he needs to go to custodial to get her to go home therefore could not be discharged. 06/17: Patient 4 days of IV antibiotics here. Discharged on 5 more days of Augmentin and doxycycline. Advised to follow-up with the associate professor of art as mentioned above in 2 weeks. 3. Concern for malignancy: Previous CT scan abdomen shows focal irregular wall thickening of cecum and ascending colon with luminal narrowing suggestive of neoplasm. There is similar finding in December 2020 but at that time patient refused for colonoscopy. Patient continues to have normal stools and reports no right-sided abdominal pain. Other concerning findings include right expansile lytic lesion of right acromion with associated pathologic fracture, mildly enlarged subcarinal and left hilar lymph nodes, L4 vertebral body 1.4 cm sclerotic lesion, and prominent retroperitoneal and right lower quadrant lymph nodes. GI consulted 06/15: Patient refused for colonoscopy. She was upset when she was started on clear liquid yesterday. 4. Persistent sinus tachycardia ? Sinus tachycardia to the 120s to low 130s in the ED. improved with IV fluid 5. Left lower lobe consolidative mass ? See HPI for further details. In short, was found to have consolidative mass in December and recently had bronchoscopy with biopsy done in early May with biopsy results negative for malignancy. Chronic medical conditions: ? Class I obesity: BMI 33 on admit. Complicates hospital course, care and prognosis. ? Hypertension: Continue home amlodipine. ? Hyperlipidemia: Continue home statin. ? Anxiety/depression: Continue home venlafaxine and chlordiazepoxide twice daily as needed. ? 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 ? Recent GI bleed: Had GI bleed in December that was suspected secondary to supratherapeutic INR while patient was on warfarin. Patient refused EGD or colonoscopy. GI bleed resolved with improvement in INR and hemoglobin has since improved. 06/17/2024 Patient did well with therapy, discharged home. Patient failed discharge home, she told me she has been sitting in a recliner since discharge home 2 weakess. 06/30/2024 Admit to TCU with debility, here for rehabilitation, strengthening, prior to discharge home. Regarding diagnosis of metastatic cancer, patient is ambivalent about evaluation, treatment. She states her is suffering dementia, living at memory care unit at [facility], she does not want treatment of any kind. PCP recommended PET scan, I also offered referral to Oncology to help her in getting a diagnosis. Another option is to do no further investigation, discharge resident to [facility] with hospice, allowing her to comfortably near her . So far plan is for PET scan, oncology appointment. [facility] Medical History (Updated 06/30/24 @ 22:[address] Silvestre Garcia MD) DVT (deep venous thrombosis) Pneumonia Osteoarthritis High triglycerides High cholesterol Arthritis Home Medications ?Medication ?Instructions ?Recorded ?Last Taken ?Type blood pressure monitor #1 ea 06/02/23 Unknown Rx venlafaxine 37.5 mg tablet 37.5 mg PO QDAY depression #90 tabs 07/11/23 Unknown Rx atorvastatin 40 mg tablet See Rx Instructions .Route 08/19/23 Unknown Rx .COMPLEX cholesterol #90 tabs chlordiazepoxide HCl 5 mg capsule 10 mg (2 x 5 mg) PO Q12H PRN 12/24/23 Unknown Rx anxiety #60 caps apixaban 2.5 mg tablet (Eliquis) 2.5 mg PO BID blood thinner #180 02/04/24 Unknown Rx tabs amlodipine 5 mg tablet 5 mg PO DAILY heart #90 tabs 03/23/24 Unknown Rx betamethasone dipropionate 0.05 % 1 applic topical DAILY PRN rash 03/23/24 Unknown Rx topical cream #45 grams ferrous sulfate 325 mg (65 mg 650 mg PO QDAY supplement 03/23/24 Unknown History iron) tablet (Feosol) handicap placard #1 ea 05/26/24 Unknown Rx meclizine 25 mg tablet 25 mg PO BID PRN dizziness 06/12/24 Unknown History Allergy/AdvReac Type Severity Reaction Status Date / Time prednisone Allergy Unknown Rash Verified 06/23/24 14:44 diphenhydramine (From Allergy Rash Verified 06/23/24 14:44 Benadryl) Influenza Virus Vaccines AdvReac Intermediate Other Verified 06/23/24 14:44 (flu vaccine) Family History Mother Arthritis Brother Myocardial infarction Father Heart disease Surgical History History of bilateral knee replacement History of umbilical hernia repair History of tonsillectomy Social History (Updated 06/30/24 @ 22:[address] Silvestre Garcia MD) household members: none Smoking Status: Never smoker alcohol intake: never substance use type: does not use what type of physical activity do you participate in: swimming ROS Constitutional Constitutional: Reports weakness; Denies chills, fever(s) or weight gain ENT HEENT: Denies headache(s), nasal congestion or nasal discharge Cardiovascular Cardiovascular: Denies chest pain or palpitations Respiratory/Chest Respiratory/Chest: Denies cough, excessive phlegm production or shortness of breath with exertion Gastrointestinal Gastrointestinal: Denies abdominal pain, nausea or vomiting Genitourinary Genitourinary: Denies dysuria Musculoskeletal Musculoskeletal: Denies joint pain or joint swelling Integumentary Integumentary: Denies rash or wounds Neurologic Neurologic: Denies focal weakness, numbness or tingling Psychiatric Psychiatric: Denies anxiety, auditory hallucinations, depression, homicidal ideation or suicidal ideation Vital Signs Vital Signs Vital Signs: 06/30/24 16:36 06/30/24 16:36 Temperature 98.9 F Temperature Source Temporal Pulse Rate 98 98 Pulse Rhythm Regular Pulse Strength Normal (2+) Respiratory Rate 18 18 Respiratory Effort Normal Non-Labored Respiratory Depth Normal Respiratory Pattern Normal Blood Pressure 107/66 Blood Pressure Mean 79 Blood Pressure Source Monitor Blood Pressure Position Semi-Fowlers Blood Pressure Location Left Arm Pulse Ox 94 94 Oxygen Delivery Method Room Air Room Air Weight Weight: 79.52 kg Body Mass Index (BMI) 32.1 Physical Exam Const alert General Appearance: cooperative HEENT normocephalic Eyes PERRL and EOMs intact bilaterally Neck supple, no JVD and no carotid bruits Resp normal respiratory effort, normal air movement and clear to auscultation bilaterally Cardio regular rate and regular rhythm GI normal to inspection, nondistended, normoactive bowel sounds, non-tender and non-distended Extremity normal capillary refill General Extremity: Negative for edema Skin no rashes or lesions noted General Skin Exam: no breakdown Psych affect normal Appearance: appropriate Assessment & Plan Assessment/Plan (1) Debility: (2) 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: (3) Essential (primary) hypertension: (4) DVT (deep venous thrombosis): (5) Hyperlipidemia, unspecified: (6) Anxiety: (7) Rash: (8) Iron deficiency anemia: (9) BPPV (benign paroxysmal positional vertigo): (10) Major depression: PLAN: Plan 78 year old female with below past medical history recently hospitalized for weakness, postobstructive pneumonia, metastatic cancer unknown primary, failed discharge home, admitted to TCU with debility, here for rehabilitation, strengthening, prior to discharge to [facility]. Debility - PT/OT. Pain - Tylenol 1000mg po q6 prn pain (1-10). Bowel - senna/colace 1 tablet bid, Magnesium citrate 300mL daily prn. Adult immunization - Adminsiter pneumonia vaccine, covid vaccine, flu vaccine as appropriate. DVT prophylaxis - Eliquis. Metastatic cancer unknown primary - PET scan, refer to Oncology for help with diagnosis, resident unlikely to agree to treatment, but may want to know her diagnosis/prognosis. Hypertension - Amlodipine 5mg daily. DVT - Eliquis 2.5mg bid. Hyperlipidemia - Atorvastatin 40mg qhs. Rash - Clobetasol cream topical daily prn. Iron deficiency anemia - Ferrous sulfate 650mg daily. BPPV - Meclizine 25mg bid prn. Tinea Corporis - Nystatin powder topical bid. The following psychotropic medication was present on admission: Librium 10mg q12 prn. Psychotropic medication therapy is indicated for a diagnosis of: Anxiety. Based on my clinical evaluation, continuation of the medication is necessary at this time. Gradual dose reduction plan (select one): ____ GDR will be attempted. Will monitor patient symptoms and behaviors in response to GDR. __x__ GRD contraindicated. Reason contraindicated: stable chronic manager solution use. The following psychotropic medication was present on admission: Venlafaxine 37.5mg daily. Psychotropic medication therapy is indicated for a diagnosis of: Major Depression. Based on my clinical evaluation, continuation of the medication is necessary at this time. Gradual dose reduction plan (select one): ____ GDR will be attempted. Will monitor patient symptoms and behaviors in response to GDR. __x__ GRD contraindicated. Reason contraindicated: stable chronic manager solution use.
[2024-07-01 05:30] LABS: Absolute Lymphocyte Count 1.41 X10^3/uL (0.83-4.51); Absolute Neutrophil Count 9.4 X10^3/uL (2.0-7.7); Basophil# 0.05 X10^3/uL; Basophil% 0.4 % (0-1); Eosinophil# 0.27 X10^3/uL; Eosinophils% 2.2 % (0-5); Hematocrit 32.3 % (37-47); Hemoglobin 10.6 g/dL (12.0-15.0); Lymphocyte # 1.41 X10^3/ul (0.83-4.51); Lymphocyte % 11.3 % (19-41); Mean Corp Hgb Conc 32.8 g/dL (32-36); Mean Corpuscular Hgb 28.2 pg (27.0-32.0); Mean Corpuscular Volume 85.9 fL (81-99); Mean Platelet Vol. 10.1 fl (6.2-12.0); Monocyte% 10.5 % (0-10); NRBC Flagged by Analyzer 0 % (0-5); Neutrophil # 9.35 X10^3/uL (2.7-7.7); Neutrophil % 75.2 % (47-70); Platelet Count 385 K/mm3 (150-450); RBC Distribution Width CV 13.4 % (11.6-14.6); RBC Distribution Width SD 41.2 fl (35.1-43.9); Red Blood Count 3.76 M/mm3 (4.2-5.4); White Blood Count 12.4 K/mm3 (4.4-11.0)
[2024-07-01 05:59] LABS: Anion Gap 9 (5-15); BUN 11 mg/dL (4-19); Calcium,Total 9.1 mg/dL (7.6-11.0); Carbon Dioxide 28.5 mmol/L (21.0-32.0); Chloride 101 mmol/L (98-108); Creatinine, Serum 0.44 mg/dL (0.70-1.20); EST Glomerular Filtration Rate 98 (>60); Estimated Creatinine Clearance 55.69 ml/min (50-250); Glucose 134 mg/dL (70-99); Potassium 3.1 mmol/L (3.3-5.1); Sodium Level 138 mmol/L (133-145)
[2024-07-01 08:52] VITALS: BP 125/72; PULSE 100; RESP 16; TEMP 37.2; O2SAT 93
[2024-07-01] MEDS: Venlafaxine XR 37.5 MG Capsule PO (08:54)
[2024-07-01] MEDS: Ferrous Sulfate 325 MG Tablet 650 MG PO (08:55)
[2024-07-01] MEDS: amLODIPine 5 MG Tablet PO (08:55)
[2024-07-01] MEDS: APIXABAN 2.5 MG TABLET (WCH) PO (08:56)
[2024-07-01] MEDS: Potassium Chloride Oral Tablet 20 MEQ 40 MEQ PO (09:01)
[2024-07-01] MEDS: Menthol/Lanolin/Calamine/Znox 113 GM Tube 1 APPLIC TOPICAL ×2 (09:04→19:48)
[2024-07-01] MEDS: Nystatin Powder 15gm Bottle 1 APPLIC TOPICAL ×2 (09:04→19:48)
--- NOTE | 2024-07-01 09:40 | NURSING ---
Addendum entered by Jenna Mccormick 07/01/24 17:16: Received phone call from [facility], updated that pt is refusing appt scheduled at this time, will call back if pt changes her mind. Addendum entered by Muna Pierre 07/01/24 15:01: Followed up with resident this afternoon, let her know PET scan could be after DC from TCU and nursing still waiting to hear back from cancer center. She said she wasn't sure if she would want a PET scan and wouldn't want treatment for cancer. She said she doesn't want an appointment with oncology set up. States she wouldn't want to deal with the side effects of chemo if that's what she needed for treatment. Let her know nurse would update cancer center. Original Note: Left VM with [facility] to set up appt. Await return call.
--- NOTE | 2024-07-01 11:28 | PCM.PN.DRR ---
Documented by User: Bernarda Brown 07/01/24 12:15 TCU RX Drug Regimen Review Subjective/Objective Subjective/Objective Subjective: 78 YOF admitted to TCU on 06/30/24 s/p hospitalization at [facility] with discharge home. Failure to thrive at home, so admitted to TCU for strengthening and rehabiliation. Objective: Allergies prednisone Allergy (Unknown, Verified 06/23/24 14:44) Rash diphenhydramine (From Benadryl) Allergy (Verified 06/23/24 14:44) Rash Influenza Virus Vaccines (flu vaccine) Adverse Reaction (Intermediate, Verified 06/23/24 14:44) Other flu like symptoms was told never to get a flu vaccine Current Medications Generic Name Dose Route Start Last Admin Trade Name Freq PRN Reason Stop Dose Admin Acetaminophen 1,000 mg 06/30/24 20:53 06/30/24 21:15 Acetaminophen 500 Mg Tablet PO 1,000 mg Q6H PRN PRN Administration Pain 1-10 or Fever Amlodipine Besylate 5 mg 07/01/24 10:00 07/01/24 08:55 Amlodipine 5 Mg Tablet PO 5 mg DAILY FOREIGN Administration Protocol Apixaban 2.5 mg 06/30/24 22:00 07/01/24 08:56 Apixaban 2.5 Mg Tablet ([facility]) PO 2.5 mg BID FOREIGN Administration Atorvastatin Calcium 40 mg 06/30/24 22:00 06/30/24 21:15 Atorvastatin Calcium 40 Mg Tablet PO 40 mg QHS FOREIGN Administration Calamine/Phenol 1 applic 06/30/24 22:00 07/01/24 09:04 Menthol/Lanolin/Calamine/Znox 113 Gm Tube TOPICAL 1 applic BID FOREIGN Administration Protocol Chlordiazepoxide 10 mg 06/30/24 18:29 Chlordiazepoxide 5 Mg Capsule PO Q12H PRN anxiety Clobetasol Propionate 1 applic 06/30/24 19:13 Clobetasol Propionate 0.05% Cream TOPICAL DAILY PRN rash Ferrous Sulfate 650 mg 07/01/24 08:00 07/01/24 08:55 Ferrous Sulfate 325 Mg Tablet PO 650 mg DAILYCM FOREIGN Administration Magnesium Citrate 300 ml 06/30/24 22:13 Magnesium Citrate 300 Ml PO DAILY PRN Constipation Meclizine HCl 25 mg 06/30/24 18:34 Meclizine Hcl 25 Mg Tablet PO BID PRN dizziness Nystatin 1 applic 06/30/24 22:00 07/01/24 09:04 Nystatin Powder 15gm Bottle TOPICAL 1 applic BID FOREIGN Administration Protocol Potassium Chloride 20 meq 07/02/24 08:00 Potassium Chloride Oral Tablet 20 Meq PO DAILYCM FOREIGN Senna/Docusate Sodium 1 tablet 07/01/24 10:00 07/01/24 08:56 Senna/Docusate Sodium 1 Tablet PO Not Given BID FOREIGN Sodium Chloride 10 - 40 ml 06/30/24 16:56 0.9% Saline Lock 10 Ml Syringe IV UD PRN SALINE FLUSH Tuberculin PPD 0.1 ml 07/08/24 10:00 Tuberculin,Purif.Prot.Deriv. 50 Tu/Ml Vial ID 07/08/24 10:01 X1 ONE Venlafaxine HCl 37.5 mg 07/01/24 10:00 07/01/24 08:54 Venlafaxine Xr 37.5 Mg Capsule PO 37.5 mg DAILY FOREIGN Administration Problem List Major depression (Acute) BPPV (benign paroxysmal positional vertigo) (Acute) Iron deficiency anemia (Acute) Rash (Acute) Anxiety (Acute) Hyperlipidemia, unspecified (Acute) DVT (deep venous thrombosis) (Acute) Essential (primary) hypertension (Acute) Debility (Acute) 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 (Acute) Vital Signs Temp Pulse Resp BP Pulse Ox O2 Del Method 99 F 100 16 125/72 H 93 Room Air 07/01/24 08:52 07/01/24 08:52 07/01/24 08:52 07/01/24 08:52 07/01/24 08:52 07/01/24 08:52 Oxygen Delivery Method Room Air Weight: 79.52 kg Body Mass Index (BMI) 32.1 Sodium 138 mmol/L (133-145) 07/01/24 05:00 Potassium 3.1 mmol/L (3.3-5.1) L 07/01/24 05:00 Chloride 101 mmol/L (98-108) 07/01/24 05:00 Carbon Dioxide 28.5 mmol/L (21.0-32.0) 07/01/24 05:00 Anion Gap 9 (5-15) 07/01/24 05:00 BUN 11 mg/dL (4-19) 07/01/24 05:00 Creatinine 0.44 mg/dL (0.70-1.20) L 07/01/24 05:00 Est GFR (MDRD) Non-Af 98 (>60) 07/01/24 05:00 BUN/Creatinine Ratio 24.0 RATIO (10-20) H 07/01/24 05:00 Glucose 134 mg/dL (70-99) H 07/01/24 05:00 Assessment/Plan: 1. Pain: Tylenol 1000mg PO Q6h PRN pain 1-10. Please continue to monitor for increased/decreased S/S pain, LFT with prolonged use (labs WNL 02/2024), PRN medication usage. - To date, the patient received 1 dose of Tylenol for pain rated 2/10 (post-admin pain rated 0/10). Patient's pain appears managed at this time. 2. History of DVT: Eliquis 2.5mg PO BID. Please continue to monitor S/S bleeding/bruising, H/H (hgb 10.6/ hct 32.3 on 07/01), platelets (385 on 07/01). The patient is currently taking this medication for history of a DVT, which does not qualify for Eliquis dose reduction. The recommended dose of Eliquis for DVT treatment/ prevention of recurrence is 5mg PO BID. Please consider changing dose if clinically indicated, thank you. 3. HTN: Amlodipine 5mg PO Daily. Please continue to monitor blood pressure (last 125/72), swelling of the lower extremities, flushing. 4. HLD: Lipitor 40mg PO QHS. Please continue to monitor for muscles cramping/pain, lipid panel annually or sooner if clinically indicated (none on file per EMR review). 5. BPPV: Meclizine 25mg PO BID PRN vertigo. Please continue to monitor for PRN medication usage and effectiveness. This is a BEERs criteria medication which can cause an increased risk of anticholinergic properties in patients >65 years of age. Please monitor patient carefully for side effects of medication and evaluate risk v. benefit of use should severe side effects occur. - The patient has not required any PRN doses of medication since admission. 6. Hypokalemia: K-Dur 20mEq PO Daily. Please continue to monitor potassium levels (last 3.1mmol/L on 07/01), GI upset, N/V. 7. Iron Deficiency anemia: Ferrous sulfate 650mg PO Daily. Please continue to monitor iron studies as clinically indicated, H/H, nausea/vomiting/stomach upset, constipation. 8. Rash: Clobetasol cream topically BID. Please continue to monitor for resolution of rash, skin irritation. 9. Skin Integrity: Calmoseptine topically BID, Nystatin topically BID. Please continue to monitor for skin irritation, redness, ulcer/wound formation. 10. Bowel: Senna/Docusate 1 tab PO BID, Magnesium citrate 300mL PO daily PRN. Please continue to monitor for increased/decreased constipation and/or diarrhea, PRN medication use. Please discontinue scheduled medications should diarrhea develop. - To date, the patient has not had a documented BM (admission <24hr ago). Please consider giving PRN medication if no documented BM in 48-72hrs. Assessment/Plan for indications treated with psychotropic medications: 1. Depression: Effexor XR 37.5mg PO Daily. Monitor for diarrhea, nausea, appetite/weight loss, anxiety or drowsiness, suicidal thoughts or behaviors (Boxed Warning), symptoms of bleeding, symptoms of serotonin syndrome (including agitation, confusion, hyperreflexia, rigidity/myoclonus, tremor, tachycardia, tachypnea), sodium levels (Na =138 on 07/01). Monitor blood pressure. BP range since admission = 107-125/66-72 Monitor for orthostatic hypotension, including postural dizziness, syncope or falls. Check orthostatic vital signs if suspicion of orthostasis. Monitor for hepatotoxicity (abdominal pain, nausea, jaundice, dark urine, AST/ALT as clinically indicated). AST/ALT WNL 02/2024. Monitor for efficacy including resident symptoms, behaviors and indications of distress. Monitor for tolerability including mental status, cognition, excessive sleepiness, withdrawal or decreased participation in activities and decline in physical functioning. Maximize use of nonpharmacologic/behavioral interventions to facilitate dose reduction or discontinuation as appropriate. Please evaluate the appropriateness of GDR unless contraindicated. If appropriate, GDR should be attempted in 2 separate quarters within the first year of use or admission to TCU. If GDR attempted, monitor resident symptoms/behaviors. 2. Anxiety: Librium 10mg PO Q12h PRN Anxiety. Monitor for sedation, mental status and cognition. Monitor for falls (risk factor for falls) and implement fall prevention strategies. Monitor for respiratory depression. RR range since admission = 16-18/ min. Monitor for tolerability including mental status, cognition, excessive sleepiness, withdrawal or decreased participation in activities and decline in physical functioning. Monitor prn usage and efficacy of prn doses including resident symptoms, behaviors and indications of distress. Maximize use of nonpharmacologic/behavior interventions to minimize use of prn medication. Prn psychotropic order must be renewed at 14 days per policy. Evaluate continued need for medication, effect of prn medication on resident?s symptoms/distress and tolerability to determine the appropriateness of order renewal. Medical chart and medication regimen reviewed. The following medication irregularities or issues were identified: 1. DVT: Eliquis 2.5mg PO BID. The patient is currently taking this medication for history of a DVT, which does not qualify for Eliquis dose reduction. The recommended dose of Eliquis for DVT treatment/ prevention of recurrence is 5mg PO BID. Please consider changing dose if clinically indicated, thank you. 2. HLD: Lipitor 40mg PO QHS. No lipid panel on file per EMR review. if clinically indicated, please consider obtaining a lipid panel, thank you. Date Date of Note: 07/01/24 Documented by User: Dr. Silvestre Garcia MD 07/01/24 14:14 TCU RX Drug Regimen Review Provider Comments Provider responsibility Provider Comments to Recommendations by Pharmacy Agree
[2024-07-01] MEDS: Tuberculin,Purif.prot.deriv. 50 TU/ML Vial 0.1 ML ID (12:15)
--- NOTE | 2024-07-01 12:21 | CASEMGMT ---
Addendum entered by Lia Guidry 07/01/24 13:56: SW phoned [facility] to follow up on pt's inquiry prior to admission. [facility] has pt on a waitlist until the end of summer. - SW updated pt and provide counseling resources and encouraged to select another agency that can provide services sooner. Pt agreed and will review. Original Note: Social Work SW met with patient to complete initial assessment. Introduced self and role. Verified/updated contacts. Patient confirmed DNR-CC, code status. Pt has not elected treatment with cancer. SW educated to Medicare benefit and copay coverage. pt's goal is to DC to [facility], pending bed availability, as currently there are no openings. Pt's lives in [facility]. SW to assist with coordination with [place]. Pt appreciative of assistance. SW offered ongoing supportive visits with pt as needed. SW will continue to follow. Lia Guidry CLOTH PATTERN MAKER MATH PROFESSOR
[2024-07-01] MEDS: Acetaminophen 500 MG Tablet 1000 MG PO (13:59)
[2024-07-01] MEDS: APIXABAN 5 MG TABLET PO (19:43)
[2024-07-01] MEDS: Atorvastatin Calcium 40 MG Tablet PO (19:44)
[2024-07-01] MEDS: Meclizine HCl 25 MG Tablet PO (19:46)
[2024-07-02 06:51] LABS: Cholesterol 158 mg/dL (<=200); High Density Lipoprotein 43 mg/dL; Low Density Lipoprotein Calc. 93 mg/dL; Triglycerides 109 mg/dL; Very Low Density Lipoprotein 22 mg/dL (5-40); cholesterol:hdl ratio screen 3.68
[2024-07-02] MEDS: Acetaminophen 500 MG Tablet 1000 MG PO ×2 (08:12→21:06)
[2024-07-02] MEDS: Ferrous Sulfate 325 MG Tablet 650 MG PO (08:57)
[2024-07-02] MEDS: Potassium Chloride Oral Tablet 20 MEQ PO (08:57)
[2024-07-02] MEDS: Menthol/Lanolin/Calamine/Znox 113 GM Tube 1 APPLIC TOPICAL ×2 (08:59→21:04)
[2024-07-02] MEDS: Nystatin Powder 15gm Bottle 1 APPLIC TOPICAL ×2 (09:01→21:03)
[2024-07-02] MEDS: Venlafaxine XR 37.5 MG Capsule PO (09:01)
[2024-07-02] MEDS: APIXABAN 5 MG TABLET PO ×2 (09:01→21:02)
[2024-07-02] MEDS: amLODIPine 5 MG Tablet PO (09:02)
[2024-07-02 09:14] VITALS: BP 113/68; PULSE 97; RESP 18; TEMP 36.6; O2SAT 94
[2024-07-02 10:00] VITALS: PULSE 97; RESP 16; O2SAT 94
--- NOTE | 2024-07-02 11:56 | NURSING ---
Builder'S Labourer Note; Activity Asset: Mary López is independent in her choice of daily activities. Her is in assisted living so he can not visits however her family will. She has her smartphone, watches tv, reads and welcomes the tax compliance representative or therapy dog when available. Staff will encourage social activities, remind her of weekly activities and respect her right to say no.
--- NOTE | 2024-07-02 16:10 | CHAPLAIN ---
Type of Pastoral Visit _x__ Initial Visit ___ Follow-up Visit ___ On-call Visit ___ General Patient Visit ___ Spiritual Assessment ___ Family Conference ___ Bereavement ___ Rapid Response ___ Code Blue ___ Other (describe below) Pastoral Care Referral From _x__ Patient ___ Family ___ Nurse ___ Physician ___ Picker/Puller ___ Construction Quality Control Manager ___ Other (describe below) Sacrament/Intervention _x__ Active listening ___ Anointing ___ Sikhism _x__ Bereavement ___ Communion _x__ Kimberly exploration ___ _x__ Life review _x__ Prayer ___ Reconciliation ___ Sacrament of Sick _x__ Supportive presence ___ Wedding ___ Other (describe below) Pastoral Comments patient is an acquaintance of years past; pt was also seen last month in the [facility]; pt reviews her recent fall and admission to TCU; pt has some troubles remembering days and when things have happened but is clear about many other details; pt's only daughter in the last year and this Mother's Day weekend will be especially difficult and this was discussed today; pt's spouse is in the memory care unit at [place] and that was also reviewed with how both are coping with this; pt is a person of kimberly and welcomes spiritual care along with prayer today
[2024-07-02] MEDS: Atorvastatin Calcium 40 MG Tablet PO (21:02)
[2024-07-02] MEDS: Meclizine HCl 25 MG Tablet PO (21:38)
[2024-07-03 06:38] LABS: Anion Gap 11 (5-15); BUN 13 mg/dL (4-19); BUN/Creat Ratio 29.4 RATIO (10-20); Calcium,Total 9.2 mg/dL (7.6-11.0); Carbon Dioxide 24.8 mmol/L (21.0-32.0); Chloride 101 mmol/L (98-108); Creatinine, Serum 0.45 mg/dL (0.70-1.20); EST Glomerular Filtration Rate 98 (>60); Estimated Creatinine Clearance 55.69 ml/min (50-250); Glucose 120 mg/dL (70-99); Potassium 3.5 mmol/L (3.3-5.1); Sodium Level 137 mmol/L (133-145)
[2024-07-03] MEDS: Potassium Chloride Oral Tablet 20 MEQ PO (08:47)
[2024-07-03] MEDS: amLODIPine 5 MG Tablet PO (08:47)
[2024-07-03] MEDS: Venlafaxine XR 37.5 MG Capsule PO (08:47)
[2024-07-03] MEDS: APIXABAN 5 MG TABLET PO ×2 (08:47→20:37)
[2024-07-03] MEDS: Menthol/Lanolin/Calamine/Znox 113 GM Tube 1 APPLIC TOPICAL ×2 (08:48→20:36)
[2024-07-03] MEDS: Ferrous Sulfate 325 MG Tablet 650 MG PO (08:48)
[2024-07-03] MEDS: Nystatin Powder 15gm Bottle 1 APPLIC TOPICAL ×2 (08:48→20:37)
[2024-07-03] MEDS: Acetaminophen 500 MG Tablet 1000 MG PO ×2 (08:51→20:42)
[2024-07-03 09:10] VITALS: BP 121/69; PULSE 106; RESP 17; TEMP 37.1; O2SAT 95
[2024-07-03] MEDS: Atorvastatin Calcium 40 MG Tablet PO (20:37)
[2024-07-04] MEDS: Potassium Chloride Oral Tablet 20 MEQ PO (08:36)
[2024-07-04] MEDS: Nystatin Powder 15gm Bottle 1 APPLIC TOPICAL ×2 (08:36→20:55)
[2024-07-04] MEDS: APIXABAN 5 MG TABLET PO ×2 (08:36→20:53)
[2024-07-04] MEDS: amLODIPine 5 MG Tablet PO (08:36)
[2024-07-04] MEDS: Ferrous Sulfate 325 MG Tablet 650 MG PO (08:36)
[2024-07-04] MEDS: Venlafaxine XR 37.5 MG Capsule PO (08:36)
[2024-07-04] MEDS: Menthol/Lanolin/Calamine/Znox 113 GM Tube 1 APPLIC TOPICAL ×2 (08:37→20:55)
[2024-07-04 09:19] VITALS: BP 111/59; PULSE 93; RESP 16; TEMP 37.1; O2SAT 97
[2024-07-04] MEDS: Acetaminophen 500 MG Tablet 1000 MG PO ×2 (12:45→20:53)
[2024-07-04] MEDS: Meclizine HCl 25 MG Tablet PO (20:53)
[2024-07-04] MEDS: Atorvastatin Calcium 40 MG Tablet PO (20:54)
[2024-07-05] MEDS: Acetaminophen 500 MG Tablet 1000 MG PO ×2 (08:34→16:20)
[2024-07-05] MEDS: Venlafaxine XR 37.5 MG Capsule PO (08:35)
[2024-07-05] MEDS: Ferrous Sulfate 325 MG Tablet 650 MG PO (08:35)
[2024-07-05] MEDS: APIXABAN 5 MG TABLET PO ×2 (08:35→19:28)
[2024-07-05] MEDS: amLODIPine 5 MG Tablet PO (08:36)
[2024-07-05] MEDS: Potassium Chloride Oral Tablet 20 MEQ PO (08:36)
[2024-07-05] MEDS: Nystatin Powder 15gm Bottle 1 APPLIC TOPICAL ×2 (08:37→19:30)
[2024-07-05] MEDS: Menthol/Lanolin/Calamine/Znox 113 GM Tube 1 APPLIC TOPICAL ×2 (08:38→19:30)
[2024-07-05 10:07] VITALS: BP 123/70; PULSE 98; RESP 18; TEMP 36.9; O2SAT 93
[2024-07-05] MEDS: COVID VAC 24-25 (12UP)(MODERNA)/PF 50 MCG/0.5 ML SYRINGE IM (16:15)
[2024-07-05] MEDS: Meclizine HCl 25 MG Tablet PO (19:27)
[2024-07-05] MEDS: Atorvastatin Calcium 40 MG Tablet PO (19:27)
[2024-07-06] MEDS: Acetaminophen 500 MG Tablet 1000 MG PO ×2 (02:42→14:10)
[2024-07-06] MEDS: Ferrous Sulfate 325 MG Tablet 650 MG PO (07:51)
[2024-07-06] MEDS: Menthol/Lanolin/Calamine/Znox 113 GM Tube 1 APPLIC TOPICAL ×2 (07:52→20:35)
[2024-07-06] MEDS: Potassium Chloride Oral Tablet 20 MEQ PO (07:52)
[2024-07-06] MEDS: APIXABAN 5 MG TABLET PO ×2 (07:53→20:36)
[2024-07-06] MEDS: Nystatin Powder 15gm Bottle 1 APPLIC TOPICAL ×2 (07:53→20:37)
[2024-07-06] MEDS: Venlafaxine XR 37.5 MG Capsule PO (07:53)
[2024-07-06] MEDS: amLODIPine 5 MG Tablet PO (07:54)
[2024-07-06 08:03] VITALS: BP 106/68; PULSE 91; RESP 18; TEMP 36.4; O2SAT 95
[2024-07-06 13:42] VITALS: BMI 31.8
[2024-07-06] MEDS: Atorvastatin Calcium 40 MG Tablet PO (20:37)
[2024-07-07] MEDS: amLODIPine 5 MG Tablet PO (08:55)
[2024-07-07] MEDS: Potassium Chloride Oral Tablet 20 MEQ PO (08:55)
[2024-07-07] MEDS: Venlafaxine XR 37.5 MG Capsule PO (08:55)
[2024-07-07] MEDS: Ferrous Sulfate 325 MG Tablet 650 MG PO (08:55)
[2024-07-07] MEDS: APIXABAN 5 MG TABLET PO ×2 (08:56→20:31)
[2024-07-07] MEDS: Nystatin Powder 15gm Bottle 1 APPLIC TOPICAL ×2 (08:59→20:31)
[2024-07-07] MEDS: Menthol/Lanolin/Calamine/Znox 113 GM Tube 1 APPLIC TOPICAL ×2 (08:59→20:31)
--- NOTE | 2024-07-07 09:06 | CASEMGMT ---
Social Work IDT met with patient and nephew, Stevo, for care plan meeting. Discussed patient's progress in PT/OT/SN. Educated to Medicare benefit. Provided pt/family with written communication of insurance process and copay coverage during stay. Pt is progressing well. SW discussed [facility] does not have any rooms available for pt to move into from DC to be with . Discussed having pt DC home with support until [facility] can assist with her transition. SW educated to skilled HHC vs OP therapy at DC. IDT discussed setting DC date by the end of next week. SW to follow up after/if pt becomes adlib to set DC date. Family/pt agreeable. SW will continue to follow for DC planning. Lia Guidry TAXI DANCER MARKETING PROJECT LEAD
[2024-07-07 09:10] VITALS: BP 110/58; PULSE 95; RESP 16; TEMP 36.4; O2SAT 94
--- NOTE | 2024-07-07 10:34 | NURSING ---
Temporary Data Entry Clerk Note; MDS for 07/07/2024 Complete
[2024-07-07] MEDS: Meclizine HCl 25 MG Tablet PO (11:20)
--- NOTE | 2024-07-07 13:41 | CASEMGMT ---
Social Work- SW met with pt to complete BIMS. Pt scored 15/15. Pt scored 1/9 on PHQ(. Pt reports that tomorrow is the one year anniversary of when her daughter during open-heart surgery. Pt reports that her is in memory care and pt only has her grandson, Stevo, whom lives with her as support during this time. Pt reports that Stevo will be getting soon; pt reports a good relationship with the fiancees family. Pt reports understanding that this is a challenging time, but that there are also many things to look forward to in the future. Pt was pleasant and engaged fully in discussion. Pt had a [id number] coming to visit this afternoon and reports that she will communicate with staff if she feels that she needs additional supports. Pt reports no concerns or needs at this time. VILMA Mauricio
--- NOTE | 2024-07-07 15:50 | CHAPLAIN ---
Type of Pastoral Visit ___ Initial Visit _x__ Follow-up Visit ___ On-call Visit ___ General Patient Visit ___ Spiritual Assessment ___ Family Conference ___ Bereavement ___ Rapid Response ___ Code Blue ___ Other (describe below) Pastoral Care Referral From _x__ Patient ___ Family ___ Nurse ___ Physician ___ Data Visualization Developer ___ Student Support Counselor ___ Other (describe below) Sacrament/Intervention _x__ Active listening ___ Anointing ___ Baptist ___ Bereavement ___ Communion ___ Kimberly exploration ___ ___ Life review ___ Prayer ___ Reconciliation ___ Sacrament of Sick ___ Supportive presence ___ Wedding ___ Other (describe below) Pastoral Comments brief visit to stop and check on patient and her visitor; casual and supportive conversation given
[2024-07-07] MEDS: Acetaminophen 500 MG Tablet 1000 MG PO (16:43)
--- NOTE | 2024-07-07 16:46 | NURSING ---
Pt requesting that PRN meclizine changed to scheduled AM dose, states this is what she was taking at home. Notified Dr. Garcia, see MAR.
[2024-07-07] MEDS: Atorvastatin Calcium 40 MG Tablet PO (20:31)
--- NOTE | 2024-07-08 04:25 | NURSING ---
Pt. shaylee Whiteside called in stating he received a call from his grandmother and that she was telling him, they have moved me rooms, and put me in a new room by myself Stevo stated he was calling to verify what his grandmother was telling him. This nurse informed Stevo that pt. had not moved rooms or units and was still in room 3 on the Transitional Care Unit. This nurse informed Stevo that at times pt. will wake up in the middle of the night and experience altered mental status. Stevo states this was an issue prior to admission to the TCU. Stevo requested I leave a message to the rn social work for her to call him to discuss placement at another rehabilitation center following discharge from TCU. This nurse left voicemail for SW expressing Stevo's concern and asking for her to call him to discuss discharge. This nurse then went to pt. room to assess pt. In the room was RN. At this time RN had reoriented pt. and pt. stated to this nurse that she was still half asleep when she called her grandson. Pt. alert and oriented x4 after using the restroom and returning to bed.
[2024-07-08 05:49] LABS: Absolute Lymphocyte Count 1.36 X10^3/uL (0.83-4.51); Absolute Neutrophil Count 6.6 X10^3/uL (2.0-7.7); Basophil# 0.03 X10^3/uL; Basophil% 0.3 % (0-1); Eosinophils% 3.2 % (0-5); Hematocrit 34.7 % (37-47); Hemoglobin 11.2 g/dL (12.0-15.0); Lymphocyte # 1.36 X10^3/ul (0.83-4.51); Lymphocyte % 14.6 % (19-41); Mean Corp Hgb Conc 32.3 g/dL (32-36); Mean Corpuscular Hgb 28.1 pg (27.0-32.0); Mean Platelet Vol. 9.8 fl (6.2-12.0); Monocyte# 1.01 X10^3/uL; Monocyte% 10.8 % (0-10); NRBC Flagged by Analyzer 0 % (0-5); Neutrophil # 6.59 X10^3/uL (2.7-7.7); Neutrophil % 70.7 % (47-70); Platelet Count 452 K/mm3 (150-450); RBC Distribution Width CV 13.1 % (11.6-14.6); RBC Distribution Width SD 41.1 fl (35.1-43.9); Red Blood Count 3.99 M/mm3 (4.2-5.4); White Blood Count 9.3 K/mm3 (4.4-11.0)
[2024-07-08 06:13] LABS: Anion Gap 11 (5-15); BUN 14 mg/dL (4-19); BUN/Creat Ratio 31.7 RATIO (10-20); Calcium,Total 9.3 mg/dL (7.6-11.0); Carbon Dioxide 25.7 mmol/L (21.0-32.0); Chloride 100 mmol/L (98-108); Creatinine, Serum 0.44 mg/dL (0.70-1.20); EST Glomerular Filtration Rate 98 (>60); Estimated Creatinine Clearance 55.49 ml/min (50-250); Glucose 137 mg/dL (70-99); Sodium Level 137 mmol/L (133-145)
[2024-07-08] MEDS: Acetaminophen 500 MG Tablet 1000 MG PO ×2 (07:46→22:28)
[2024-07-08] MEDS: Venlafaxine XR 37.5 MG Capsule PO (07:46)
[2024-07-08] MEDS: amLODIPine 5 MG Tablet PO (07:47)
[2024-07-08] MEDS: Potassium Chloride Oral Tablet 20 MEQ PO (07:47)
[2024-07-08] MEDS: Ferrous Sulfate 325 MG Tablet 650 MG PO (07:47)
[2024-07-08] MEDS: APIXABAN 5 MG TABLET PO ×2 (07:48→20:19)
[2024-07-08] MEDS: Meclizine HCl 25 MG Tablet PO (07:55)
[2024-07-08] MEDS: Menthol/Lanolin/Calamine/Znox 113 GM Tube 1 APPLIC TOPICAL ×2 (07:57→20:20)
[2024-07-08] MEDS: Nystatin Powder 15gm Bottle 1 APPLIC TOPICAL ×2 (07:57→20:21)
[2024-07-08] MEDS: Tuberculin,Purif.prot.deriv. 50 TU/ML Vial 0.1 ML ID (10:33)
--- NOTE | 2024-07-08 14:47 | CASEMGMT ---
Social Work SARAH received VM from fast food shift supervisor DRY SANDER requesting this worker contact nephew who wanted to discuss pt DC to a SNF at [place]. - SARAH phoned nephew. Nephew explained a story from last night, that pt called nephew about 0100 scared that she moved rooms and was no longer in the hospital. Nephew called the nurse's station and spoke with DRY SANDER that assured nephew pt was still in TCU and in her room. Nephew expressed if she continues to have these episodes, he does not feel comfortable having pt at home. SARAH validated feelings. SARAH offered to notify nursing and Dr and monitor and follow up as appropriate. Nephew appreciative. - SARAH reviewed documentation and nothing was noted. SARAH verbally updated day shift DRY SANDER to have fast food shift supervisor monitor and document any changes with pt overnight moving forward. Lia Guidry MSW CHIEF SALES OFFICER
[2024-07-08 15:31] VITALS: BP 108/60; PULSE 90; RESP 16; TEMP 36.4; O2SAT 95
[2024-07-08] MEDS: Atorvastatin Calcium 40 MG Tablet PO (20:19)
[2024-07-08] MEDS: Senna/Docusate Sodium 1 Tablet PO (20:20)
[2024-07-09 07:56] VITALS: BP 108/63; PULSE 96; RESP 16; TEMP 36.5; O2SAT 96
[2024-07-09] MEDS: Ferrous Sulfate 325 MG Tablet 650 MG PO (07:59)
[2024-07-09] MEDS: Potassium Chloride Oral Tablet 20 MEQ PO (08:00)
[2024-07-09] MEDS: Meclizine HCl 25 MG Tablet PO (08:00)
[2024-07-09] MEDS: Venlafaxine XR 37.5 MG Capsule PO (08:00)
[2024-07-09] MEDS: Menthol/Lanolin/Calamine/Znox 113 GM Tube 1 APPLIC TOPICAL ×2 (08:01→21:06)
[2024-07-09] MEDS: APIXABAN 5 MG TABLET PO ×2 (08:02→21:03)
[2024-07-09] MEDS: Nystatin Powder 15gm Bottle 1 APPLIC TOPICAL ×2 (08:02→21:06)
[2024-07-09] MEDS: amLODIPine 5 MG Tablet PO (08:02)
--- NOTE | 2024-07-09 13:41 | RAD_ITS ---
PROCEDURE: CHEST PA AND LATERAL 07/09/2024 REASON FOR EXAM: BIBASILAR CRACKLES. TECHNIQUE: Frontal and lateral views of the chest. COMPARISON: Comparison is made with prior study dated June 14, 2024. FINDINGS: Hardware: None Heart: The heart is nonenlarged. Mediastinum: Calcification of the aortic arch. Lungs: Left lower lobe consolidation and small left pleural effusion. Bones: Degenerative changes are identified within the thoracic spine. RAD/Chest PA and Lateral IMPRESSION: Small left pleural effusion with left basilar infiltration. Reading Location: [id number]
--- NOTE | 2024-07-09 14:24 | NURSING ---
crackles heard in bases today, Dr. Garcia updated and New orders for CXR and IS. Dr. Garcia reviewed CXR and gave new order for levoquin 750mg PO Q48H x 7 days
--- NOTE | 2024-07-09 15:01 | NURSING ---
Pharmacy called and stated that resident's renal function can tolerate daily levoquin instead of Q48, Dr. Garcia approved medication change to daily x 7 days.
[2024-07-09] MEDS: levoFLOXacin 750 MG Tablet PO (15:36)
[2024-07-09] MEDS: Acetaminophen 500 MG Tablet 1000 MG PO (17:32)
[2024-07-09] MEDS: Atorvastatin Calcium 40 MG Tablet PO (21:03)
[2024-07-10] MEDS: Acetaminophen 500 MG Tablet 1000 MG PO ×3 (03:31→17:47)
[2024-07-10 07:38] VITALS: BP 122/77; PULSE 87; RESP 16; TEMP 36.3; O2SAT 93
[2024-07-10] MEDS: Potassium Chloride Oral Tablet 20 MEQ PO (07:43)
[2024-07-10] MEDS: Venlafaxine XR 37.5 MG Capsule PO (07:44)
[2024-07-10] MEDS: Ferrous Sulfate 325 MG Tablet 650 MG PO (07:44)
[2024-07-10] MEDS: Meclizine HCl 25 MG Tablet PO (07:44)
[2024-07-10] MEDS: amLODIPine 5 MG Tablet PO (07:45)
[2024-07-10] MEDS: levoFLOXacin 750 MG Tablet PO (07:45)
[2024-07-10] MEDS: APIXABAN 5 MG TABLET PO ×2 (07:45→20:29)
[2024-07-10] MEDS: Menthol/Lanolin/Calamine/Znox 113 GM Tube 1 APPLIC TOPICAL ×2 (07:46→20:31)
[2024-07-10] MEDS: Nystatin Powder 15gm Bottle 1 APPLIC TOPICAL ×2 (07:46→20:31)
[2024-07-10] MEDS: Atorvastatin Calcium 40 MG Tablet PO (20:29)
[2024-07-11] MEDS: Acetaminophen 500 MG Tablet 1000 MG PO ×3 (05:03→20:16)
[2024-07-11 05:09] VITALS: PULSE 92; O2SAT 96
[2024-07-11] MEDS: Potassium Chloride Oral Tablet 20 MEQ PO (09:28)
[2024-07-11] MEDS: Ferrous Sulfate 325 MG Tablet 650 MG PO (09:28)
[2024-07-11] MEDS: Menthol/Lanolin/Calamine/Znox 113 GM Tube 1 APPLIC TOPICAL ×2 (09:30→20:19)
[2024-07-11] MEDS: Meclizine HCl 25 MG Tablet PO (09:30)
[2024-07-11] MEDS: APIXABAN 5 MG TABLET PO ×2 (09:31→20:21)
[2024-07-11] MEDS: Nystatin Powder 15gm Bottle 1 APPLIC TOPICAL ×2 (09:32→20:20)
[2024-07-11] MEDS: levoFLOXacin 750 MG Tablet PO (09:32)
[2024-07-11] MEDS: Venlafaxine XR 37.5 MG Capsule PO (09:32)
[2024-07-11] MEDS: amLODIPine 5 MG Tablet PO (09:33)
[2024-07-11 09:38] VITALS: BP 103/62; PULSE 87; RESP 18; TEMP 36.6; O2SAT 94
--- NOTE | 2024-07-11 10:56 | NURSING ---
SET PT UP IN BATH ROOM WITH BASIN TO WASH UP.
[2024-07-11] MEDS: Atorvastatin Calcium 40 MG Tablet PO (20:21)
--- NOTE | 2024-07-11 21:21 | NURSING ---
Addendum entered by Ksenia Tena 07/12/24 01:27: Contacted Dr. Garcia via telephone, notified of right shoulder results, new orders received- sling ordered (received from ER), Tylenol 1,000mg for pain scale 1-3, Oxy 5mg for 4-6, Morphine 10mg Q1 hr PRN for pain 7-10. Pt states as long as her arm is kept close to her body, she does not have any pain. Orders repeated back. Original Note: PATIENT REPORTS POPPING SOUND IN R SHOULDER WHEN TOILETING AND PULLING DOWN PANTS. PAIN SCALE 6/10 STATES WORSE WITH MOVEMENT. 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 PATIENT DOES REPORT CHRONIC PAIN IN R SHOULDER, BUT POPPING SOUND IS NEW. CONTACTED VIA TELEPHONE, NOTIFIED OF NEW PAIN TO R SHOULDER. NEW ORDERS RECEIVED OF R SHOULDER X-RAY, OXYCODONE 5MG Q4HR PO PRN. ORDERS VERIFIED WITH . PER TO NOTIFY HIM OF ABNORMAL RESULT WITHIN X-RAY. PATIENTS PRIMARY NURSE NOTIFIED OF NEW ORDERS.
--- NOTE | 2024-07-11 21:38 | RAD_ITS ---
PROCEDURE: SHOULDER MIN 2 VIEWS 07/11/2024 REASON FOR EXAM: PAIN AND POPPING SOUND PER PATIENT TECHNIQUE: Three views of the right shoulder COMPARISON: CTA chest 06/12/2024 FINDINGS: Redemonstration destructive lytic lesion involving the right acromion. The soft tissue lesion extends superiorly within the shoulder. There is destruction of the acromioclavicular joint. No other suspicious lesions identified. Mild degenerative changes of the glenohumeral joint. Imaged lung davidson are clear. RAD/Shoulder min 2 Views IMPRESSION: See above Reading Location: [facility]
[2024-07-12 08:30] VITALS: BP 121/72; PULSE 99; RESP 16; TEMP 36.6; O2SAT 94
[2024-07-12] MEDS: APIXABAN 5 MG TABLET PO ×2 (08:32→21:46)
[2024-07-12] MEDS: Ferrous Sulfate 325 MG Tablet 650 MG PO (08:32)
[2024-07-12] MEDS: Potassium Chloride Oral Tablet 20 MEQ PO (08:32)
[2024-07-12] MEDS: levoFLOXacin 750 MG Tablet PO (08:32)
[2024-07-12] MEDS: amLODIPine 5 MG Tablet PO (08:32)
[2024-07-12] MEDS: Venlafaxine XR 37.5 MG Capsule PO (08:32)
[2024-07-12] MEDS: Menthol/Lanolin/Calamine/Znox 113 GM Tube 1 APPLIC TOPICAL ×2 (08:33→21:48)
[2024-07-12] MEDS: Meclizine HCl 25 MG Tablet PO (08:33)
[2024-07-12] MEDS: Nystatin Powder 15gm Bottle 1 APPLIC TOPICAL ×2 (08:33→21:48)
[2024-07-12] MEDS: Acetaminophen 500 MG Tablet 1000 MG PO ×2 (10:08→19:56)
--- NOTE | 2024-07-12 13:49 | CASEMGMT ---
Social Work SARAH received email correspondence from [facility] ([facility]) on 07/09, stating there is a room becoming availaible the week of 07/19, that pt could move into. SARAH advised for [facility] to speak with family on specifics, and SW to collaborate with IDT on LOS. - After speaking with IDT, given pt's new dx and treatment of PNA, pt will remained skilled to plan for safe DC the week of 07/19. - SARAH phoned shaylee to notify on outcome and plan for DC to [place] week of 07/19. Shaylee stated he was unaware of dx of PNA and expressed frustration. SW noted that NOK is pt's SARWAT, and nursing could have notified SARWAT, however, since this worker has been discussing DC plans with grandson, SW contacted grandson with this information. Shaylee expressed understanding, though still frustrated. SW offered for nursing to contact grandson to review PNA dx. son appreciative. Shaylee stated he has not received any communication from [facility] yet either. SW noted it was Friday afternoon when they contacted this worker. Though, SW to update [facility] with conversation and request grandson be contacted. son appreciative. - SARAH spoke with charge nurse to notify of conversation with grandson and SW noted no nursing documentation supporting a family member was notified of dx. Charge nurse to explore. Floor nurse to contact shaylee. - SARAH emailed [facility] to notify of conversation, agreeable to DC to [place] week of 07/19, and request to contact grandmerlin. SARAH will continue to follow. Lia Guidry MSW CELL INSPECTOR
--- NOTE | 2024-07-12 16:06 | CASEMGMT ---
Social Work SW spoke with pt at bedside. Discussed room availability in [place]. Pt stated she had not received a call from [facility] to discuss yet, and expressed dissatisfaction that grandson was notified prior to pt. SW provided active listening. SW provided explanation to series of events and none had ill-intent. Apologized for [facility] not contacting prior to conversation with grandson and pt. Though, expressed importance with family being notified of changes in pt's condition. Pt expressed understanding. SW engaged in discussion with pt for extended period of time as pt reiterated frustrations and questions, and this worker provided explanations continuously. The conversation circled. SW validated pt's feelings and assured pt will be notified of any changes or updates first, but encouraged pt to advocate for herself and ask questions. Explained SW role is to assist with coordination, not to make decisions. Pt appreciative. - SARAH spoke with Taylor at [facility] as she received a call from pt prior this worker's conversation. SW requested Chan from [facility] contact pt to review the room availability and pricing, and ask if grandson can be contacted to coordinate payment and furniture move-in. Taylor and this worker discussed logistics of room readiness and tentatively planned for pt DC 07/22. Will follow and plan once grandson can confirm furniture move-in. SARAH will continue to follow for DC planning. Lia Guidry MSW BAKER CHEF
[2024-07-12] MEDS: Atorvastatin Calcium 40 MG Tablet PO (21:47)
[2024-07-13] MEDS: Meclizine HCl 25 MG Tablet PO (09:04)
[2024-07-13] MEDS: Potassium Chloride Oral Tablet 20 MEQ PO (09:04)
[2024-07-13] MEDS: Ferrous Sulfate 325 MG Tablet 650 MG PO (09:04)
[2024-07-13] MEDS: Nystatin Powder 15gm Bottle 1 APPLIC TOPICAL ×2 (09:05→19:38)
[2024-07-13] MEDS: Venlafaxine XR 37.5 MG Capsule PO (09:05)
[2024-07-13] MEDS: Menthol/Lanolin/Calamine/Znox 113 GM Tube 1 APPLIC TOPICAL ×2 (09:05→19:38)
[2024-07-13] MEDS: levoFLOXacin 750 MG Tablet PO (09:05)
[2024-07-13] MEDS: amLODIPine 5 MG Tablet PO (09:05)
[2024-07-13] MEDS: APIXABAN 5 MG TABLET PO ×2 (09:05→19:35)
--- NOTE | 2024-07-13 09:35 | MDS.RN ---
Information for the MDS was obtained from review of the clinical record, interview of resident, staff, and direct observation of resident?s care.
[2024-07-13 09:50] VITALS: BMI 31.3
[2024-07-13 10:06] VITALS: BP 103/64; PULSE 88; RESP 16; TEMP 37.6; O2SAT 95
[2024-07-13] MEDS: Atorvastatin Calcium 40 MG Tablet PO (19:35)
--- NOTE | 2024-07-14 09:37 | CASEMGMT ---
Social Work SW informed by Taylor at [facility] that she is visiting with pt on 07/14 to complete admission paperwork and review details. IDT updated. Lia Guidry PEANUT PICKER ELECTRIC SHOVEL OPERATOR
[2024-07-14] MEDS: Ferrous Sulfate 325 MG Tablet 650 MG PO (10:02)
[2024-07-14] MEDS: Potassium Chloride Oral Tablet 20 MEQ PO (10:03)
[2024-07-14] MEDS: Meclizine HCl 25 MG Tablet PO (10:03)
[2024-07-14] MEDS: Menthol/Lanolin/Calamine/Znox 113 GM Tube 1 APPLIC TOPICAL ×2 (10:04→21:09)
[2024-07-14] MEDS: Venlafaxine XR 37.5 MG Capsule PO (10:04)
[2024-07-14] MEDS: levoFLOXacin 750 MG Tablet PO (10:05)
[2024-07-14] MEDS: Ketoconazole Cream 1 APPLIC TOPICAL ×2 (10:05→21:09)
[2024-07-14] MEDS: APIXABAN 5 MG TABLET PO ×2 (10:05→21:10)
[2024-07-14] MEDS: amLODIPine 5 MG Tablet PO (10:07)
[2024-07-14 10:16] VITALS: BP 115/94; PULSE 99; RESP 18; TEMP 36.8; O2SAT 96
[2024-07-14] MEDS: Atorvastatin Calcium 40 MG Tablet PO (21:11)
[2024-07-14] MEDS: Nystatin Powder 15gm Bottle 1 APPLIC TOPICAL (21:11)
[2024-07-15] MEDS: Nystatin Powder 15gm Bottle 1 APPLIC TOPICAL ×2 (05:54→22:10)
[2024-07-15 06:38] LABS: Absolute Lymphocyte Count 1.73 X10^3/uL (0.83-4.51); Absolute Neutrophil Count 5.3 X10^3/uL (2.0-7.7); Basophil# 0.05 X10^3/uL; Basophil% 0.6 % (0-1); Eosinophil# 0.29 X10^3/uL; Eosinophils% 3.6 % (0-5); Hematocrit 37.4 % (37-47); Lymphocyte # 1.73 X10^3/ul (0.83-4.51); Lymphocyte % 21.2 % (19-41); Mean Corp Hgb Conc 32.1 g/dL (32-36); Mean Corpuscular Hgb 28.4 pg (27.0-32.0); Mean Corpuscular Volume 88.4 fL (81-99); Mean Platelet Vol. 9.8 fl (6.2-12.0); Monocyte# 0.72 X10^3/uL; Monocyte% 8.8 % (0-10); NRBC Flagged by Analyzer 0 % (0-5); Neutrophil # 5.33 X10^3/uL (2.7-7.7); Neutrophil % 65.4 % (47-70); Platelet Count 522 K/mm3 (150-450); RBC Distribution Width CV 13.6 % (11.6-14.6); RBC Distribution Width SD 43.7 fl (35.1-43.9); Red Blood Count 4.23 M/mm3 (4.2-5.4); White Blood Count 8.2 K/mm3 (4.4-11.0)
[2024-07-15 06:51] LABS: Anion Gap 11 (5-15); BUN 15 mg/dL (4-19); BUN/Creat Ratio 29.6 RATIO (10-20); Calcium,Total 9.6 mg/dL (7.6-11.0); Carbon Dioxide 26.3 mmol/L (21.0-32.0); Chloride 102 mmol/L (98-108); Creatinine, Serum 0.51 mg/dL (0.70-1.20); EST Glomerular Filtration Rate 95 (>60); Estimated Creatinine Clearance 55.05 ml/min (50-250); Glucose 130 mg/dL (70-99); Potassium 4.3 mmol/L (3.3-5.1); Sodium Level 140 mmol/L (133-145)
[2024-07-15] MEDS: Ferrous Sulfate 325 MG Tablet 650 MG PO (09:06)
[2024-07-15] MEDS: Meclizine HCl 25 MG Tablet PO (09:07)
[2024-07-15] MEDS: Menthol/Lanolin/Calamine/Znox 113 GM Tube 1 APPLIC TOPICAL ×2 (09:07→22:09)
[2024-07-15] MEDS: Potassium Chloride Oral Tablet 20 MEQ PO (09:07)
[2024-07-15] MEDS: Venlafaxine XR 37.5 MG Capsule PO (09:08)
[2024-07-15] MEDS: APIXABAN 5 MG TABLET PO ×2 (09:08→22:10)
[2024-07-15] MEDS: levoFLOXacin 750 MG Tablet PO (09:08)
[2024-07-15] MEDS: Ketoconazole Cream 1 APPLIC TOPICAL ×2 (09:09→22:11)
[2024-07-15] MEDS: amLODIPine 5 MG Tablet PO (09:09)
[2024-07-15] MEDS: Acetaminophen 500 MG Tablet 1000 MG PO ×2 (09:11→22:15)
[2024-07-15 09:19] VITALS: BP 113/69; PULSE 100; RESP 18; TEMP 36.6; O2SAT 95
[2024-07-15 13:00] VITALS: PULSE 110; RESP 18; O2SAT 96
--- NOTE | 2024-07-15 15:38 | CASEMGMT ---
Social Work SW followed up with pt to finalize DC plans for 07/22. Pt refuted stated she is leaving on 07/19 (Friday, ). SW inquired about validity as Taylor spoke with this worker to confirm DC 07/22, as the previous resident was moving out over the holiday weekend, then the room needs shampooed, and Stevo is moving in furniture on 07/21, then DC 07/22. Pt denied stating she is discharging on 07/19 and moving into her 's room until her room was ready. SW agreed to follow up with Taylor to determine if any changes were made. - SW emailed Taylor to update on conversation. Taylor stated for some reasons she things 07/19 is the insurance date, but confirmed above timeline and move in/DC 07/22. SW agreed to revisit with pt to finalize plans. Pt also reported to therapists DC date 07/19. Lia Guidry MSW SPIRAL MACHINE OPERATOR
[2024-07-15] MEDS: Atorvastatin Calcium 40 MG Tablet PO (22:10)
[2024-07-16] MEDS: Potassium Chloride Oral Tablet 20 MEQ PO (08:38)
[2024-07-16] MEDS: Ketoconazole Cream 1 APPLIC TOPICAL (08:40)
[2024-07-16] MEDS: amLODIPine 5 MG Tablet PO (08:41)
[2024-07-16] MEDS: APIXABAN 5 MG TABLET PO ×2 (08:41→20:48)
[2024-07-16] MEDS: Venlafaxine XR 37.5 MG Capsule PO (08:41)
[2024-07-16] MEDS: Ferrous Sulfate 325 MG Tablet 650 MG PO (08:41)
[2024-07-16] MEDS: Meclizine HCl 25 MG Tablet PO (08:42)
[2024-07-16] MEDS: Menthol/Lanolin/Calamine/Znox 113 GM Tube 1 APPLIC TOPICAL ×2 (08:42→20:47)
--- NOTE | 2024-07-16 09:42 | CASEMGMT ---
Social Work SW spoke with pt at bedside to notify that Taylor confirmed DC 07/22, and reiterated the timeline of the room readiness, as the pt cannot move into the room any sooner. Pt reiterated that she is staying with her in his room until her furniture gets moved in. Pt replied, well I'm going home if that's the case. SW encouraged pt to call Taylor to confirm with her directly on move-in date. Pt agreed. SW requested to notify this worker after conversation and this worker can assist with finalizing DC plans. pt agreed. - SW phoned Taylor to update on conversation. Taylor explained pt was defensive about the move-in date yesterday with her as well. Taylor explained to pt the move-in date is 07/22, and pt cannot move in with for several reasons. Taylor noted pt's cognitive decline, perseveration and difficulty actively listening, which is new for the pt, according to the Taylor. SARAH confirmed she has been exhibiting that this week with staff. Taylor agreed to speak with pt and requested if another staff member that she has better rapport with, can speak with the pt. SW agreed, and analyzed pt may be struggling with losing control over her DC and decisions, especially since the situation when Stevo was spoken to first about the room opening at [place]. Taylor agreed. SW to collaborate with staff and keep Taylor updated. Taylor appreciative. - SARAH spoke with treating BUCKLE STRAP PUNCHER who does have good rapport with pt. SW explained conversation and perspective noting to use pt's past profression and viewpoint to allow pt to come to conclusion about proper DC date on her own; promote autonomy. LALITA agreed to assist with conversation and update this worker on outcome. SW appreciative. SW will continue to follow. Lia Guidry SOFTWARE DAT[employer]ASE ARCHITECT [employer]PER [employer]SEMBLER
[2024-07-16] MEDS: Acetaminophen 500 MG Tablet 1000 MG PO (13:10)
[2024-07-16 15:49] VITALS: BP 107/66; PULSE 112; RESP 16; TEMP 36.8; O2SAT 96
--- NOTE | 2024-07-16 16:16 | CASEMGMT ---
Social Work SW spoke with Taylor, after she spoke with pt, and concluded the DC plans. Pt will physically DC home on 07/20, with grandmerlin after he is off work (1500). Grandson will arrange for furniture to be moved into [place] on 07/21, then plan is for pt to move in to [place] on 07/21. - SW spoke with pt in room. Friend was present and pt granted permission for friend to remain during conversation. SW reiterated conversation with Taylor and confirmed all information is accurate to what pt was told. Pt confirmed. Pt stated she has not yet spoken to Stevo about the plan. SW offered to call Stevo. Pt denied. SW offered to refer to skilled HHC, as [facility]. Pt agreed and was going to request those services. SW confirmed pt has no DME needs. SARAH issued NOMNC for DC 07/20. SARAH also asked permission to complete MDS assessment with pt. Pt agreed. SW completed BIMS () and PHQ-2 () for MDS assessment. - SARAH updated IDT. Phoned referral to [facility] for PT/OT with above DC plan. Plan: DC home 07/20, then plan to move into [place] 07/21; [facility] PT/OT Lia ESPARZA
[2024-07-16 20:09] VITALS: PULSE 98; O2SAT 94
[2024-07-16] MEDS: Atorvastatin Calcium 40 MG Tablet PO (20:48)
[2024-07-17] MEDS: Acetaminophen 500 MG Tablet 1000 MG PO (06:02)
[2024-07-17 06:14] VITALS: PULSE 88; O2SAT 93
[2024-07-17] MEDS: Ferrous Sulfate 325 MG Tablet 650 MG PO (08:18)
[2024-07-17] MEDS: Venlafaxine XR 37.5 MG Capsule PO (08:18)
[2024-07-17] MEDS: Ketoconazole Cream 1 APPLIC TOPICAL ×2 (08:18→20:20)
[2024-07-17] MEDS: APIXABAN 5 MG TABLET PO ×2 (08:18→20:22)
[2024-07-17] MEDS: amLODIPine 5 MG Tablet PO (08:18)
[2024-07-17] MEDS: Potassium Chloride Oral Tablet 20 MEQ PO (08:18)
[2024-07-17] MEDS: Meclizine HCl 25 MG Tablet PO (08:18)
[2024-07-17] MEDS: Menthol/Lanolin/Calamine/Znox 113 GM Tube 1 APPLIC TOPICAL ×2 (08:19→20:20)
[2024-07-17 09:12] VITALS: BP 105/75; PULSE 99; RESP 17; TEMP 36.7; O2SAT 98
[2024-07-17] MEDS: Nystatin Powder 15gm Bottle 1 APPLIC TOPICAL (20:21)
[2024-07-17] MEDS: Atorvastatin Calcium 40 MG Tablet PO (20:23)
[2024-07-18] MEDS: Ferrous Sulfate 325 MG Tablet 650 MG PO (09:23)
[2024-07-18] MEDS: Meclizine HCl 25 MG Tablet PO (09:24)
[2024-07-18] MEDS: Venlafaxine XR 37.5 MG Capsule PO (09:24)
[2024-07-18] MEDS: Potassium Chloride Oral Tablet 20 MEQ PO (09:24)
[2024-07-18] MEDS: APIXABAN 5 MG TABLET PO ×2 (09:25→20:19)
[2024-07-18] MEDS: amLODIPine 5 MG Tablet PO (09:25)
[2024-07-18] MEDS: Ketoconazole Cream 1 APPLIC TOPICAL ×2 (09:25→20:20)
[2024-07-18] MEDS: Acetaminophen 500 MG Tablet 1000 MG PO (09:27)
[2024-07-18] MEDS: Menthol/Lanolin/Calamine/Znox 113 GM Tube 1 APPLIC TOPICAL ×2 (09:38→20:18)
[2024-07-18] MEDS: Nystatin Powder 15gm Bottle 1 APPLIC TOPICAL ×2 (13:27→20:18)
[2024-07-18 16:00] VITALS: BP 106/57; PULSE 84; RESP 14; TEMP 36.6
[2024-07-18 20:00] VITALS: PULSE 92; O2SAT 94
[2024-07-18] MEDS: Atorvastatin Calcium 40 MG Tablet PO (20:19)
[2024-07-19 02:38] VITALS: PULSE 88; O2SAT 93
[2024-07-19] MEDS: Potassium Chloride Oral Tablet 20 MEQ PO (09:11)
[2024-07-19] MEDS: Ferrous Sulfate 325 MG Tablet 650 MG PO (09:11)
[2024-07-19] MEDS: Meclizine HCl 25 MG Tablet PO (09:12)
[2024-07-19] MEDS: Menthol/Lanolin/Calamine/Znox 113 GM Tube 1 APPLIC TOPICAL ×2 (09:13→21:58)
[2024-07-19] MEDS: Venlafaxine XR 37.5 MG Capsule PO (09:14)
[2024-07-19] MEDS: Ketoconazole Cream 1 APPLIC TOPICAL ×2 (09:15→21:55)
[2024-07-19] MEDS: APIXABAN 5 MG TABLET PO ×2 (09:15→21:53)
[2024-07-19] MEDS: amLODIPine 5 MG Tablet PO (09:15)
[2024-07-19 09:22] VITALS: BP 106/62; PULSE 89; RESP 18; TEMP 36.7; O2SAT 93
[2024-07-19] MEDS: Acetaminophen 500 MG Tablet 1000 MG PO ×2 (10:39→18:29)
[2024-07-19] MEDS: Nystatin Powder 15gm Bottle 1 APPLIC TOPICAL ×2 (13:07→21:54)
[2024-07-19] MEDS: Atorvastatin Calcium 40 MG Tablet PO (21:53)
[2024-07-20] MEDS: Acetaminophen 500 MG Tablet 1000 MG PO (01:41)
[2024-07-20 06:26] VITALS: PULSE 82; RESP 16
--- NOTE | 2024-07-20 08:10 | DS.PCM_ITS ---
Providers Date of Admission: 06/30/24 Primary Care Physician: Dr. Cole Shipley, DO Reason For Visit: [place] Diagnosis Discharge Diagnosis (1) Debility: Status: Acute Code(s): R53.81 - Other malaise (2) 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: Status: Acute Code(s): C79.51 - Secondary malignant neoplasm of bone; C80.1 - Malignant (primary) neoplasm, unspecified (3) Essential (primary) hypertension: Status: Acute Code(s): I10 - Essential (primary) hypertension (4) DVT (deep venous thrombosis): Status: Acute Code(s): I82.409 - Acute embolism and thrombosis of unspecified deep veins of unspecified lower extremity (5) Hyperlipidemia, unspecified: Status: Acute Code(s): E78.5 - Hyperlipidemia, unspecified (6) Anxiety: Status: Acute Code(s): F41.9 - Anxiety disorder, unspecified (7) Rash: Status: Acute Code(s): R21 - Rash and other nonspecific skin eruption (8) Iron deficiency anemia: Status: Acute Code(s): D50.9 - Iron deficiency anemia, unspecified (9) BPPV (benign paroxysmal positional vertigo): Status: Acute Code(s): H81.10 - Benign paroxysmal vertigo, unspecified ear (10) Major depression: Status: Acute Code(s): F32.9 - Major depressive disorder, single episode, unspecified Plan 78 year old female with below past medical history recently hospitalized for weakness, postobstructive pneumonia, metastatic cancer unknown primary, failed discharge home, admitted to TCU with debility, here for rehabilitation, strengthening, prior to discharge to [facility]. * Debility - PT/OT. * Pain - Tylenol 1000mg po q6 prn pain (1-10). * Bowel - senna/colace 1 tablet bid, Magnesium citrate 300mL daily prn. * Adult immunization - Adminsiter pneumonia vaccine, covid vaccine, flu vaccine as appropriate. * DVT prophylaxis - Eliquis. * Metastatic cancer unknown primary - PET scan, refer to Oncology for help with diagnosis, resident unlikely to agree to treatment, but may want to know her diagnosis/prognosis. * Hypertension - Amlodipine 5mg daily. * DVT - Eliquis 2.5mg bid. * Hyperlipidemia - Atorvastatin 40mg qhs. * Rash - Clobetasol cream topical daily prn. * Iron deficiency anemia - Ferrous sulfate 650mg daily. * BPPV - Meclizine 25mg bid prn. * Tinea Corporis - Nystatin powder topical bid. The following psychotropic medication was present on admission: Librium 10mg q12 prn. Psychotropic medication therapy is indicated for a diagnosis of: Anxiety. Based on my clinical evaluation, continuation of the medication is necessary at this time. Gradual dose reduction plan (select one): ____ GDR will be attempted. Will monitor patient symptoms and behaviors in response to GDR. __x__ GRD contraindicated. Reason contraindicated: stable chronic alf use. The following psychotropic medication was present on admission: Venlafaxine 37.5mg daily. Psychotropic medication therapy is indicated for a diagnosis of: Major Depression. Based on my clinical evaluation, continuation of the medication is necessary at this time. Gradual dose reduction plan (select one): ____ GDR will be attempted. Will monitor patient symptoms and behaviors in response to GDR. __x__ GRD contraindicated. 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 Medications at Discharge Home Medications blood pressure monitor #1 ea 06/02/23 handicap placard #1 ea 05/26/24 acetaminophen 500 mg tablet 1,000 mg (2 x 500 mg) PO Q6H PRN PRN Pain 1-3 Or Fever #0 tabs 07/20/24 amlodipine 5 mg tablet 5 mg PO DAILY 30 days #30 tabs 07/20/24 apixaban 5 mg tablet (Eliquis) 5 mg PO BID 30 days #60 tabs 07/20/24 atorvastatin 40 mg tablet 40 mg PO QHS 30 days #30 tabs 07/20/24 chlordiazepoxide HCl 5 mg capsule 10 mg (2 x 5 mg) PO Q12H PRN anxiety 30 days #120 caps 07/20/24 ferrous sulfate 325 mg (65 mg iron) tablet (FeroSul) 650 mg (2 x 325 mg (65 mg iron)) PO DAILYCM 30 days #60 tabs 07/20/24 meclizine 25 mg tablet (Travel-Ease (meclizine)) 25 mg PO QAM 30 days #30 tabs 07/20/24 potassium chloride 20 mEq tablet,extended release(part/cryst) 20 meq PO DAILYCM 30 days #30 tabs 07/20/24 venlafaxine 37.5 mg capsule,extended release 24 hr 37.5 mg PO DAILY 30 days #30 caps 07/20/24 Hospital Course Operations None Procedures None Summary of Care Provided Minutes Spent on Discharge: 35 Hospital Course: 78 year old female with below past medical history recently hospitalized for weakness, postobstructive pneumonia, metastatic cancer unknown primary, failed discharge home, admitted to TCU with debility, here for rehabilitation, strengthening, prior to discharge to [facility]. Resident declined evaluation for metastatic cancer unknown primary. Discharge home 07/20/2024, then plan to move into [facility] 07/21/2024; [facility] PT/OT. Physical Exam Const alert General Appearance: cooperative HEENT normocephalic Eyes PERRL and EOMs intact bilaterally Neck supple, no JVD and no carotid bruits Resp normal respiratory effort, normal air movement and clear to auscultation bilaterally Cardio regular rate and regular rhythm GI normal to inspection, nondistended, normoactive bowel sounds, non-tender and non-distended Extremity normal capillary refill General Extremity: Negative for edema Skin no rashes or lesions noted General Skin Exam: no breakdown Psych affect normal Appearance: appropriate Weight / BMI Weight Weight: 77.746 kg Body Mass Index (BMI) 31.3 ABG / Lab / Microbiology Data 07/15/24 05:33 07/15/24 05:33 D/C Instructions Discharge Diet: No restrictions Discharge Activity: Return to Normal Activity, May Shower and Use Walker Weight Bearing Status: Weight bearing as tolerated Call your doctor if you observe: Fever of 101 or Higher, Inability to urinate, Inability to have a bowel movement, Shortness of breath, Dizziness, Fainting spells, Swelling in the ankles, Chest pain and Uncontrolled pain DC O2, CPAP, BIPAP Needs Home O2 Discharge instructions: No Additional Instructions: Discharge home 07/20/2024, then plan to move into [facility] 07/21/2024; [facility] PT/OT. Meaningful Use Info Meaningful Use Meaningful Use Diagnoses (Choose all that apply): None applicable Ischemic Stroke Statin Dosing Therapy Reference: STATIN DOSE THERAPY REFERENCE: * Patients > 75 years receive moderate or high dose statin therapy. * Patients 75 years or YOUNGER should receive HIGH intensity statin dose unless contraindicated. You will be required to document reason for non-treatment if statin daily dose does not meet guidelines. HIGH DOSE STATIN THERAPY DAILY Atorvastatin > than or = to 40 mg Rosuvastatin > than or = to 20 mg Amlodipine + Atorvastatin > than or = to 2.5/40 mg Ezetimibe + Simvastatin 10/80 mg Simvastatin 80mg Discharge Plan Admission Admit Date/Time: 06/30/24 18:41 Primary Reason for Your Visit: Debility. Attending Provider: Silvestre Garcia Chi Primary Care Provider: Cole Shipley Instructions Additional Instructions / Restrictions: Discharge home 07/20/2024, then plan to move into [facility] 07/21/2024; [facility] PT/OT. Discharge Orders/Prescriptions Prescriptions: New atorvastatin 40 mg Tablet 40 mg PO QHS 30 Days Qty: 30 0RF amlodipine 5 mg Tablet 5 mg PO DAILY 30 Days Qty: 30 0RF acetaminophen 500 mg Tablet 1,000 mg PO Q6H PRN PRN (Reason: Pain 1-3 Or Fever) Qty: 0 0RF chlordiazepoxide HCl 5 mg Capsule 10 mg PO Q12H PRN (Reason: anxiety) 30 Days Qty: 120 0RF Eliquis 5 mg Tablet 5 mg PO BID 30 Days Qty: 60 0RF venlafaxine 37.5 mg Capsule,Extended Release 24hr 37.5 mg PO DAILY 30 Days Qty: 30 0RF potassium chloride 20 mEq Tablet,Er Particles/Crystals 20 meq PO DAILYCM 30 Days Qty: 30 0RF meclizine [Travel-Ease (meclizine)] 25 mg Tablet 25 mg PO QAM 30 Days Qty: 30 0RF ferrous sulfate [FeroSul] 325 mg (65 mg iron) Tablet 650 mg PO DAILYCM 30 Days Qty: 60 0RF Discontinued atorvastatin 40 mg tablet See Rx Instructions .ROUTE .COMPLEX Qty: 90 2RF Dose Instruction: TAKE 1 TABLET DAILY Rx Instructions: TAKE 1 TABLET DAILY Eliquis 2.5 mg tablet 2.5 mg PO BID Qty: 180 1RF ferrous sulfate [Feosol] 325 mg (65 mg iron) tablet 650 mg PO QDAY amlodipine 5 mg tablet 5 mg PO DAILY Qty: 90 1RF betamethasone dipropionate 0.05 % cream 1 applic TOPICAL DAILY PRN (Reason: rash) Qty: 45 1RF meclizine 25 mg tablet 25 mg PO BID PRN (Reason: dizziness) venlafaxine 37.5 mg tablet 37.5 mg PO QDAY Qty: 90 1RF chlordiazepoxide HCl 5 mg capsule 10 mg PO Q12H PRN (Reason: anxiety) Qty: 60 0RF No Action (DME) blood pressure monitor Kit See Rx Instructions .ROUTE .MEDSUPPLY Qty: 1 0RF Rx Instructions: As directed (DME) handicap placard See Rx Instructions .Route .MEDSUPPLY Qty: 1 0RF Rx Instructions: Duration 5 years, difficulty with ambualation. Referrals / Follow Up: Cole Shipley DO [Primary Care Provider] - Disposition Disposition (needs filled in before D/C Order can be placed): Home Health Service
[2024-07-20] MEDS: Potassium Chloride Oral Tablet 20 MEQ PO (08:35)
[2024-07-20] MEDS: Ferrous Sulfate 325 MG Tablet 650 MG PO (08:35)
[2024-07-20] MEDS: Meclizine HCl 25 MG Tablet PO (08:36)
[2024-07-20] MEDS: APIXABAN 5 MG TABLET PO (08:36)
[2024-07-20] MEDS: Venlafaxine XR 37.5 MG Capsule PO (08:36)
[2024-07-20] MEDS: amLODIPine 5 MG Tablet PO (08:37)
[2024-07-20] MEDS: Ketoconazole Cream 1 APPLIC TOPICAL (08:39)
[2024-07-20 08:43] VITALS: BP 104/64; PULSE 86; RESP 18; TEMP 36.8; O2SAT 93
--- NOTE | 2024-07-20 10:24 | NURSING ---
Addendum entered by Jae Liu 07/20/24 19:25: Call back from PCP office. PCP office will contact patient by telephone to schedule follow up appt. Original Note: telephone call to PCP office to schedule follow up appointment. Voicemail left to return call to TCU.
== END 2024-07-20 11:00 | disposition home health service (06) | DRG 194 ==
PROVIDERS: Admitting Provider Family Medicine Geriatric Medicine; PCP Family Medicine; Visit Provider Family Medicine Geriatric Medicine
DX: J18.9 Pneumonia, unspecified organism (principal); C79.9 Secondary malignant neoplasm of unspecified site; C79.51 Secondary malignant neoplasm of bone; D50.9 Iron deficiency anemia, unspecified; C80.1 Malignant (primary) neoplasm, unspecified; B35.4 Tinea corporis; F32.9 Major depressive disorder, single episode, unspecified; I10 Essential (primary) hypertension; Z68.33 Body mass index [BMI] 33.0-33.9, adult; F41.9 Anxiety disorder, unspecified; H81.10 Benign paroxysmal vertigo, unspecified ear; E78.00 Pure hypercholesterolemia, unspecified; Z79.01 Long term (current) use of anticoagulants; R21 Rash and other nonspecific skin eruption; E66.811 Obesity, class 1; Z79.899 Other long term (current) drug therapy; Z23 Encounter for immunization
CPT/HCPCS: 36415; 71046; 73030; 80048; 80061; 85025; 90480; 91322; 97110; 97116; 97162; 97166; 97530; 97535

== ENCOUNTER 2024-09-08 08:52 | Outpatient (CLI) | payer MEDICARE, OTHER, SELFPAY ==
--- NOTE | 2024-09-07 10:15 | ASPIGT_PTH ---
PATIENT: SCOTT BAIRD LOC: [place] U#:[id number] AGE/SX: 78/F ROOM: RE09/08/[address]: Dr. Brice David MD : 1945 BED: DIS: 09/08/2024 SPEC #: [id number] RECD: 09/08/24 10:30 STATUS: ALONDRA REQ #: [id number] TAMI: 09/07/24 10:[address]: Brice David DEPT: SURGICAL PATHOLOGY RECD BY: Andrés Beth ENTERED: 09/08/24 11:03 SP TYPE: ASP RAD LJ DR: Dr. Cole Shipley, DO Tissues: A - Shoulder, NOS Procedures: FNA Specimen Adequacy Immunohistochemical Stains Special Stain Group II Surgery Specimen Level IV Imprint (control) IHC Stain ADDITIONAL HEADER OPERATION: CT guided right shoulder mass biopsy PRE-OP DIAGNOSIS: Right posterior shoulder mass TISSUE SUBMITTED: A- Right shoulder mass biopsy - 18 gauge x 6 cores MICROSCOPIC DIAGNOSIS A. Shoulder, right, posterior, mass, CT-guided core biopsy: - Metastatic adenocarcinoma, consistent with a GI primary. - Positive for panKeratin, CK20, CDX2. - Negative for CK7, TTF-1, Napsin A. COMMENT The specimen is evaluated at the time of biopsy by Dr. Ulrich. Immediate Evaluation = 4. Adequate. 5. Adequate. MICROSCOPIC DESCRIPTION Slides are reviewed. All matched controls reacted appropriately. These tests were developed and their performance characteristics determined by [facility]. They may not have been cleared or approved by the U.S. Food and Drug Administration. The FDA has determined that such clearance or approval is not necessary.? The above immunohistochemical/dualISH?markers are reviewed by the Pathologist. GROSS DESCRIPTION Received in formalin labeled with the patient's name and date of is a 0.8 x 0.3 x 0.1 cm aggregate of simmons-red flecks of tissue. Entirely submitted in 2 cassettes. The entirety of the specimen may not survive processing. HI 09/08/2024 CPT:03061,22879 ,[id number] ADDENDUM ADDENDUM ADDENDUM ADDENDUM ADDENDUM ADDENDUM ADDENDUM ADDENDUM ADDENDUM ADDENDUM ADDENDUM ADDENDUM ADDENDUM 09/24/2024 08:53 ADDENDUM 09/24/2024 08:53 ADDENDUM 09/24/2024 08:53 ADDENDUM 09/24/2024 08:53 ADDENDUM 09/24/2024 08:53 This addendum is added to incorporate an outside pathology consultation report. The case was examined at [facility] by Dr. Smith (#[id number]) and the following diagnosis was rendered. A. Shoulder, right, posterior, mass, CT guided core biopsy: HER2 expression level (IHC) : Negative (score 1+) PD-L1 IHC 22C3 pharmDx expression level: Positive for PD-L1 expression (CPS>1) combined positive score (CPS): 10 Solid tumor NGS panel and FISH assay to be reported separately. Please see complete above mentioned consultation report in EMR
[2024-09-08] VITALS (12 sets, daily range): BP systolic 107–120; BP diastolic 63–86; PULSE 100–107; RESP 18; TEMP 36.6; O2SAT 91–98; BMI 30.2
--- NOTE | 2024-09-08 08:56 | CT_ITS ---
EXAM: CT-guided biopsy of the right shoulder mass. CLINICAL HISTORY: Right shoulder mass with bony destruction and pain. COMPARISON: Prior CT scan dated June 12, 2024. TECHNIQUE: The procedure as well as the benefits and possible complications including infection and bleeding were explained to the patient. Informed consent was obtained. Conscious sedation was performed. The patient received 2 mg of Versed and 50 mcg fentanyl intravenously. Conscious sedation was started at tunnel to a.m. and terminated at 10:25 a.m.. The patient was independently monitored by the department nurse. The patient was in the prone position. The overlying skin was prepped and draped in the usual sterile fashion. Following local anesthetic application, an 18 gauge core biopsy needle was placed into the mass. Following this, 6 core biopsies were obtained. The pathologist deemed the specimen adequate. The patient tolerated the procedure well. FINDINGS: Successful CT-guided right shoulder mass biopsy. CT/Biopsy/Inj or Needle Placement IMPRESSION: Successful core biopsies of the right shoulder mass as described. Adequate spe cimen was obtained. The patient tolerated the procedure well. Reading Location: [place] [address]
[2024-09-08] MEDS: Midazolam 2 MG/2 ML Syringe IV (10:02)
[2024-09-08] MEDS: 0.9% Normal Saline (250mL Bag) 250 ML 15 ML IV (10:02)
[2024-09-08] MEDS: fentaNYL 100 MCG/2 ML Ampul IV (10:03)
[2024-09-08] MEDS: Lidocaine 2% (20 ml mdv) 20 ML Vial INFILT (10:18)
== END 2024-09-08 23:59 | disposition home or self-care (01) ==
LOC: CT 08:53
PROVIDERS: PCP Family Medicine; Referring Provider Internal Medicine Medical Oncology; Visit Provider Internal Medicine Medical Oncology
DX: C79.89 Secondary malignant neoplasm of other specified sites (principal); Z79.01 Long term (current) use of anticoagulants
CPT/HCPCS: 20206; 77012; 88172; 88305; 88313; 88341; 88342; 99156

== ENCOUNTER 2024-10-10 19:10 | Emergency (ER) | payer MEDICARE, OTHER, SELFPAY ==
[2024-10-10] VITALS (7 sets, daily range): BP systolic 108–112; BP diastolic 70–97; PULSE 113–119; RESP 14–22; TEMP 37.2; O2SAT 91–98; BMI 21.9
--- NOTE | 2024-10-10 20:30 | RAD_ITS ---
PROCEDURE: CHEST 1 VIEW 10/10/2024 REASON FOR EXAM: COUGH TECHNIQUE: Frontal view of the chest. COMPARISON: 07/09/2024 FINDINGS: Hardware: None. Heart: The heart size is normal. Lungs: Layering left pleural effusion with likely superimposed consolidation of the left lung base. The right lung is clear. No pneumothorax. Bones: The bones are unremarkable. RAD/Chest 1 View IMPRESSION: Layering left pleural effusion with likely superimposed consolidation of the le ft lung base. Reading [facility]
--- OUTSIDE RECORDS SUMMARY | 2024-10-10 20:34 | XMS RPT_ITS | CCD ---
Author Organization [facility] Care Team Providers Care Bag Valver Name Role Phone Dr. Cole Cardona Primary Care Provider [phone] Dr. Cole Cardona Attending Provider [phone] Dr. Cole Cardona Referring Provider [phone] COLE CARDONA DO Primary Care Physician Dr. Cole Cardona Primary Care Provider [phone] Dr. Cole Cardona Attending Provider [phone] Dr. Cole Cardona Referring Provider [phone] COLE CARDONA DO Primary Care Unavailable ROGERIO ISSA Admitting Unavailab DR KIMBERLY Mallory DO Attending Unavailable Dr. Cole Cardona Primary Care Provider [phone] Dr. Cole Cardona Attending Provider [phone] Dr. Cole Cardona Referring Provider [phone] Cole Cardona DO Primary Care Provider COLE CARDONA Primary Care Unavailable HEATEHR SHAH Referring Unavailable COLE CARDONA Primary Care Unavailable HEATHER SHAH Referring Unavailable COLE CARDONA Primary Care Unavailable COLE CARDONA Primary Care Unavailable Dr. Cole Cardona Primary Care Provider [phone] Dr. Cole Cardona Attending Provider [phone] Dr. Cole Cardona Referring Provider [phone] KOFI Clarke Attending Provider [phone] NURSE, NOE Attending Provider Unavailable Cole Cardona DO Primary Care Provider Dr. Cole Cardona DO Primary Care Provider Dr. Jorge Cardona DOlas R Attending Provider Dulce PAYTON, Dr. Cole Hackett Referring Provider Dr. Rodriguez Braxton DO Emergency Provider Evelyn PAYTON, Dr. Cordova Admit Provider Evelyn PAYTON, Dr. Cordova Attending Provider Dr. Art Rivas DO Referring Provider MARBIN LINDSEY, DR ANNETTE Laguerre Consulting Unavailable KYREE DAWSON MD Attending Unavailable BROWN DO, COLE R Primary Care Unavailable BROWN DO, COLE R Primary Care Unavailable SALLY LINDSEY, CHENG Middleton Attending Unavail able BROWN DO, COLE R Primary Care Unavailable JACEY LINDSEY, DR MARK Rodriguez Attending Ceciliavai kevin BROWN DO, COLE R Primary Care Unavailable TRENT LINDSEY, XAVIER Attending Unavailable Dr. Rodriguez Braxton DO Attending Provider Dr. Art Rivas DO Other Provider [phone] Santiago LINDSEY, Dr. Elias Attending Provider Santiago LINDSEY, Dr. Elias Other Provider [phone] Cyndy PAYTON, Dr. Dover Attending Provider Dulce PAYTON, Dr. Cole Hackett Primary Care Provider [phone] Dr. Cole Cardona DO Attending Provider Dr. Cole Cardona DO Referring Provider Dr. Art Rivas DO Referring Provider Jose LINDSEY, Dr. Silvestre Kilgore Admit Provider Jose LINDSEY, Dr. Silvestre Kilgore Attending Provider [phone] MARBIN LINDSEY, DR ANNETTE Laguerre Admitting Unavailable YOUSUF PAYTON, DR HARRIS Attending Unavailable BROWN DO, COLE R Primary Care Unavailable TRENT LINDSEY, XAVIER Consulting Unavailable ZULEMA JURADO MD Attending Unavailable BROWN DO, COLE R Primary Care Unavailable TRENT LINDSEY, XAVIER Attending Unavailable MCKINLEY MIRELES MD Consulting Unavailable BROWN DO, COLE R Primary Care Unavailable RODRIGO PAYTON, ROEL Consulting Unavailabl e TRENT LINDSEY, XAVIER Attending Unavailable DULCE DOCOLE Primary Care Unavailable TRENT LINDSEY, XAVIER Attending Unavailable DULCE DOCOLE Primary Care Unavailable Dulce DO, Dr. Cole Hackett Primary Care Provider Dulce DO, Dr. Cole Hackett Attending Provider [phone] Dulce PAYTON, Dr. Cole Hackett Referring Provider [phone] Jose LINDSEY, Dr. Silvestre Kilgore Referring Provider Joann LINDSEY, Dr. Narvaez Attending Provider Annika DO, Dr. Hackett Attending Provider Dulce PAYTON, Dr. Cole Hackett Primary Care Provider Anddulce maria PAYTON, Dr. Frias Attending Provider Fox PAYTON, Dr. Frias Emergency Provider Evelyn PAYTON, Dr. Cordova Admit Provider Evelyn PAYTON, Dr. Cordova Attending Provider Evelyn PAYTON, Dr. Cordova Other Provider Santiago LINDSEY, Dr. Elias Attending Provider Santiago LINDSEY, Dr. Elias Other Provider Evelyn PAYTON, Dr. Cordova Referring Provider Cyndy PAYTON, Dr. Dover Attending Provider Dulce PAYTON, Dr. Cole Hackett Attending Provider [phone] Dulce PAYTON, Dr. Cole Hackett Referring Provider [phone] Jose LINDSEY, Dr. Silvestre Kilgore Admit Provider Jose LINDSEY, Dr. Silvestre Kilgore Attending Provider Joann LINDSEY, Dr. Narvaez Attending Provider Annika PAYTON, Dr. Hackett Attending Provider Joann LINDSEY, Dr. Narvaez Referring Provider Annika PAYTON, Dr. Hackett Referring Provider Annika PAYTON, Dr. Hackett Referring Provider Brown, Cole R Primary Care Unavailable Brown, Cole R Referring Unavailable Brown, Cole R Attending Unavailable Brice David Referring Unavailable Brice David Attending Unavailable Brown, Cole R Primary Care Unavailable Brown, Cole R Primary Care Unavailable Brown, Cole R Attending Unavailable Brown, Cole R Referring Unavailable Brown, Cole R Primary Care Unavailable Brown, Cole R Referring Unavailable Brown, Cole R Attending Unavailable Rodriguez Braxton Attending Unavailable Brown, Cole R Primary Care Unavailable Brayden Terry Referring Unavailable Brayden Terry Attending Unavailable Brown, Cole R Primary Care Unavailable Brown, Cole R Attending Unavailable Brown, Cole R Primary Care Unavailable Brown, Cole R Referring Unavailable Art Rivas Consulting Unavailable Santiago, Curt Attending Unavailable Evelyn, Art Admitting Unavailable Brown, Cole R Primary Care Unavailable Evelyn, Art Referring Unavailable Lew Roblero Referring Unavailable Lew Roblero Attending Unavailable Brown, Cole R Primary Care Unavailable Brown, Cole R Primary Care Unavailable Mosteller, Art Consulting Unavailable Mosteller, Art Admitting Unavailable Santiago, Curt Attending Unavailable Mosteller, Art Referring Unavailable Santiago, Curt Consulting Unavailable Santiago, Curt Attending Unavailable Mosteller, Art Admitting Unavailable Brown, Cole R Primary Care Unavailable Mosteller, Art Consulting Unavailable Mosteller, Art Referring Unavailable Santiago, Curt Consulting Unavailable Brown, Cole R Primary Care Unavailable Jeff Hewitt Attending Unavailable Brown, Cole R Referring Unavailable Brice David Attending Unavailable Brown, Cole R Primary Care Unavailable Brown, Cole R Referring Unavailable Brown, Cole R Attending Unavailable Brown, Cole R Primary Care Unavailable Brown, Cole R Referring Unavailable Brown, Cole R Primary Care Unavailable Jaron Sommer Attending Unavailable Brown, Cole R Attending Unavailable Brown, Cole R Primary Care Unavailable Brown, Cole R Referring Unavailable Brown, Cole R Attending Unavailable Brown, Cole R Primary Care Unavailable Brown, Cole R Referring Unavailable Brown, Cole R Primary Care Unavailable Brown, Cole R Referring Unavailable Brown, Cole R Attending Unavailable Brown, Cole R Primary Care Unavailable Jose, Silvestre Chi Admitting Unavailable Jose, Silvestre Chi Attending Unavailable Brown, Cole R Primary Care Unavailable Brown, Cole R Referring Unavailable Brown, Cole R Attending Unavailable Art Rivas Attending Unavailable Brown, Cole R Attending Unavailable Brown, Cole R Primary Care Unavailable Brown, Cole R Referring Unavailable Brown, Cole R Primary Care Unavailable Brown, Cole R Attending Unavailable Brown, Cole R Referring Unavailable Stanislaw Naylor Attending Unavailable Brown, Cole R Primary Care Unavailable Brown, Cole R Attending Unavailable Brown, Cole R Referring Unavailable Annika, Lew Attending Unavailable Brown, Cole R Primary Care Unavailable Brown, Cole R Referring Unavailable Brown, Cole R Attending Unavailable Brown, Cole R Primary Care Unavailable Brown, Cole R Referring Unavailable Annika, Lew Attending Unavailable Brown, Cole R Primary Care Unavailable Annika, Lew Attending Unavailable Brown, Cole R Primary Care Unavailable Annika, Lew Attending Unavailable Brown, Cole R Primary Care Unavailable Brown, Cole R Primary Care Unavailable Brown, Cole R Referring Unavailable Brice David Attending Unavailable Annika, Lew Attending Unavailable Brown, Cole R Primary Care Unavailable Brown, Cole R Referring Unavailable Brown, Cole R Primary Care Unavailable Annika, Lew Attending Unavailable Brown, Cole R Referring Unavailable Annika, Lew Attending Unavailable Brown, Cole R Primary Care Unavailable Annika, Lew Attending Unavailable Brown, Cole R Primary Care Unavailable Annika, Lew Attending Unavailable Brown, Cole R Primary Care Unavailable Annika, Lew Referring Unavailable Annika, Lew Attending Unavailable Brown, Cole R Primary Care Unavailable Allergies Allergy Classification Reported Allergen(s) Allergy Type Date of Onset Reaction(s) Facility (20 sources) diphenhydrAMINE; Translations: [diphenhydramine] Drug Allergy 05-10-19 22 Rash, Itching [facility] (20 sources) predniSONE; Translations: [prednisone] Drug Allergy 06-11-19 11 Rash [facility] (10 sources) Influenza Vaccines Propensity to adverse reactions 06-15-19 Other [facility] Comment on above: flu like symptoms was told never to get a flu vaccine (1 source) diphenhydrAMINE Drug Allergy 09-23-19 [facility] Repository (1 source) predniSONE Drug Allergy 09-23-19 [facility] Repository (1 source) Influenza Virus Vaccines Drug allergy (disorder) 09-23-19 [facility] Repository Medications Current Medications Medication Drug Class(es) Dates Sig (Normalized) Sig (Original) acetaminophen 325 mg oral tablet (15 sources) Start: 08-16-2024 Start: 07-20-2024 End: 08-16-2024 [id number] 200 actuat albuterol 0.09 mg/actuat metered dose inhaler (3 sources) beta2-Adrenergic Agonist Start: 07-31-2014 take 2 puff(s) by inhalation every four hours as needed for wheezing albuterol HFA (PROVENTIL HFA, VENTOLIN HFA) 90 mcg/actuation inhaler Indications: Cough , History of pneumonia , URI (upper respiratory infection) Inhale 2 Puffs as instructed every 4 hours as needed for Wheezing/Shortness of Breath. 1 Inhaler 0 07/31/2014 Active Comment on above: Inhale 2 Puffs as instructed every 4 cony rs as needed for Wheezing/Shortness of Breath. apixaban 2.5 mg oral tablet (20 sources) Factor Xa Inhibitor Start: 07-27-2024 Start: 07-20-2024 End: 07-27-2024 Start: 02-04-2024 End: 07-20-2024 Start: 01-03-2024 End: 06-12-2024 Start: 06-11-2022 End: 08-26-2022 Start: 06-05-2022 End: 07-05-2022 Eliquis 5 mg oral tablet [10 mg BID x 7days-then 5mg BID], Oral, BID, # 74 tab(s), 0 Refill(s), DVT Treatment Dosing, Pharmacy: [facility]/pharmacy #[id number], 157.5, cm, 06/03/22 22:36:00 EDT, Height, 97.1, kg, 06/03/22 22:36:00 EDT, Dosing Weight Start Date: 06/05/22 Stop Date: 07/05/22 Status: Ordered aspirin 81 mg chewable tablet (20 sources) Platelet Aggregation Inhibitor, Nonsteroidal Anti-inflammatory Drug Start: 06-03-2022 aspirin 81 mg ora l tablet, chewable Dose : 81 mg = 1 tab(s), Chewed, qDay, 0 Refill(s) Start Date: 06/03/22 Status: Ordered Start: 10-08-2017 End: 06-02-2023 Aspirin 81 mg OR AL Tab Take 81 mg by mouth. Active Comment on above: Take 81 mg by mouth. Blood Pressure Monitor (1 source) Start: 06-02-2023 Blood Pressure Monitor Active 0 .ROUTE .MEDSUPPLY 1 June 02, 2023 12:00am As directed Blood Pressure Monitor kit (9 sources) Start: 06-02-2023 Blood Pressure Monitor kit Active 0 .ROUTE .MEDSUPPLY 1 0 June 02, 2023 12:00am As directed Start: 06-02-2023 Blood Pressure Monitor kit Active 0 .ROUTE .MEDSUPPLY 1 June 02, 2023 12:00am As directed candesartan (3 sources) Angiotensin 2 Receptor Lila C ANDESARTAN CILEXETIL (ATACAND ORAL) Take by mouth. Active CANDESARTAN CILE XETIL (ATACAND ORAL) Take by mouth. 0 Active Comment on above: Take by mouth. ferrous sulfate 325 mg oral tablet (20 sources) Start: 08-16-2024 take 1 tablet by mouth twice daily Ferrous Sulfate (Ferosul) 325 mg (65 mg iron) tablet Active 325 mg PO TWICE A DAY August 16, 2024 10:25am Start: 07-20-2024 End: 08-16-2024 Ferrous Sulfate (Ferosul) 32 5 mg (65 mg iron) Tablet Discontinued 650 mg PO DAILY WITH MEALS 60 30 0 July 20, 2024 12:00am August 16, 2024 10:28am Start: 07-20-2024 End: 08-16-2024 Ferrous Sulfate (Ferosul) 32 5 mg (65 mg iron) Tablet Discontinued 650 mg PO DAILY WITH MEALS 60 30 July 20, 2024 12:00am August 16, 2024 10:28am Start: 07-20-2024 Ferrous Sulfat e (Ferosul) 325 mg (65 mg iron) Tablet Active 650 mg PO DAILY WITH MEALS 60 July 20, 2024 12:00am Start: 05-13-2024 ferrous sulfat e 325 mg (65 mg elemental iron) oral delayed release tablet Dose : 325 mg = 1 tab(s), Oral, BID, # 100 tab(s), 0 Refill(s) Start Date: 05/13/24 Status: Ordered Quantity: 100.0 Unit: tab(s) Repeat number: 1 Start: 03-23-2024 End: 07-20-2024 take 1 tablet by mouth once daily Ferrous Sulfate (Feosol) 325 mg (65 mg iron) tablet Discontinued 650 mg PO daily March 23, 2024 1:00am July 20, 2024 8:15am supplement Start: 03-23-2024 End: 07-20-2024 take 1 tablet by mouth once daily Ferrous Sulfate (Feosol) 325 mg (65 mg iron) tablet Discontinued 650 mg PO daily March 23, 2024 1:00am July 20, 2024 8:15am Start: 03-23-2024 take 1 tablet by sonny th once daily Ferrous Sulfate (Feosol) 325 mg (65 mg iron) tablet Active 650 mg PO daily March 23, 2024 1:00am handicap placard (9 sources) Start: 05-26-[address] Active 0 .Route .MEDSUPPLY 1 0 May 26, 2024 12:00am Duration 5 years, difficulty with ambualation. Start: 05-26-[address] Active 0 .Route .MEDSUPPLY 1 May 26, 2024 12:00am Duration 5 years, difficulty with ambualation. loperamide hydrochloride 2 m g oral capsule (6 sources) Opioid Agonist Start: 08-16-2024 Start: 08-16-2024 Loperamide 2 m g capsule Active 2 mg PO as needed August 16, 2024 12:00am one cap after first and each additional loose stool. Do not exceed 8 tabs (16 mg) in 24hr period. Magnesium Hydroxide (3 sources) Start: 08-16-2024 take 1 mL by mouth once daily as needed Magnesium Hydroxide (Milk Of Magnesia) 400 mg/5 mL suspension Active 30 mL PO daily as needed August 16, 2024 12:00am nystatin [id number] unt/ml topical cream (8 sources) Polyene Antifungal Start: 07-28-2024 Start: 07-28-2024 Nystatin 100,0 00 unit/gram cream Active 1 NMA TOPICAL daily 30 1 July 28, 2024 12:00am ondansetron 4 mg disintegrating oral tablet (20 sources) Serotonin-3 Receptor Antagonist Start: 02-20-2024 End: 02-23-2024 ondansetron 4 mg oral tablet, disintegrating Dose : 4 mg = 1 tab(s), Oral, q6h, PRN Nausea/Vomiting, X 3 day(s), # 20 tab(s), 0 Refill(s), 02/23/24 5:06:00 PM EST Start Date: 02/20/24 Stop Date: 02/23/24 Status: Ordered Quantity: 20.0 Unit: tab(s) Repeat number: 1 Start: 06-11-2022 End: 06-02-2023 Start: 06-11-2022 End: 06-02-2023 Ondansetron Hcl 4 mg tablet Discontinued 4 mg PO .prn June 11, 2022 12:00am June 02, 2023 1:07pm Start: 06-05-2022 End: 06-06-2022 Zofran 4 mg oral tablet Dose : 4 mg = 1 tab(s), Oral, q6h, PRN PRN Nausea/Vomiting, # 20 tab(s), 0 Refill(s), 06/06/22 13:57:00 EDT, Pharmacy: [facility]/pharmacy #[id number], 157.5, cm, 06/03/22 22:36:00 EDT, Height, kg, 06/03/22 22:36:00 EDT, Dosing Weight Start Date: 06/05/22 Stop Date: 06/06/22 Status: Ordered microencapsulated potassium chloride 20 meq extended release oral tablet (9 sources) Start: 07-20-2024 24 hr venlafaxine 37.5 mg extended release oral capsule (20 sources) Serotonin and Norepinephrine Reuptake Inhibitor Start: 07-20-2024 Start: 10-08-2017 End: 07-20-2024 take 1 tablet by sonny th three times daily venlafaxine (EFFEXOR) 75 mg tablet Take 75 mg by mouth three times a day. Active Comment on above: Take 75 mg by mouth three times a day. Vitamin D3 (4 sources) Start: 06-03-2022 Vitamin D3 Dos e : 10 mcg = 1 tab(s), Oral, Daily, # 30 tab(s), 0 Refill(s) Start Date: 06/03/22 Status: Ordered Quantity: 30.0 Unit: tab(s) Repeat number: 1 Start: 06-03-2022 Vitamin D3 Dos e : 10 mcg = 1 tab(s), Oral, Daily, # 30 tab(s), 0 Refill(s) Start Date: 06/03/22 Status: Ordered (18 sources) Start: 08-16-2024 Start: 08-16-2024 Start: 07-20-2024 End: 08-16-2024 Start: 05-26-2024 Start: 03-23-2024 End: 07-20-2024 Start: 06-02-2023 Completed/Discontinued Medications Medication Drug Class(es) Dates Sig (Normalized) Sig (Original) acetaminophen 325 mg / HYDROcodone bitartrate 5 mg oral tablet (9 sources) Opioid Agonist Start: 06-23-2024 End: 06-30-2024 Start: 06-23-2024 End: 06-30-2024 amLODIPine 5 mg oral tablet (20 sources) Dihydropyridine Calcium Channel Lila Start: 06-02-2023 End: 07-20-2024 amoxicillin 875 mg / clavulanate 125 mg oral tablet (10 sources) Penicillin-class Antibacterial Start: 06-17-2024 End: 06-30-2024 Start: 06-17-2024 End: 06-30-2024 Amoxicillin-Pot Clavulanate 875-125 mg tablet Discontinued 1 {tbl} PO TWICE A DAY 10 5 0 June 17, 2024 12:00am June 30, 2024 6:29pm atorvastatin 40 mg oral tabl et (20 sources) HMG-CoA Reductase Inhibitor Start: 10-08-2017 End: 07-20-2024 take 1 tablet by mouth once fay y atorvastatin (LIPITOR) 20 mg ORAL tablet Take 20 mg by mouth once daily. Active Comment on above: Take 20 mg by mouth once daily. azithromycin 250 mg oral tablet (20 sources) Macrolide Antimicrobial Start: 05-04-2018 End: 12-09-2018 benzonatate 100 mg oral capsule (15 sources) Non-narcotic Antitussive Start: 04-08-2023 End: 08-19-2023 betamethasone 0.5 mg/ml topical cream (20 sources) Corticosteroid Start: 12-31-2023 betamethasone dipropionate 0.05% topical cream Apply 1 melania, Topical, qDay, Apply to: under breasts, 0 Refill(s), 86.4 Start Date: 12/31/23 Status: Ordered Repeat number: 1 Start: 12-31-2023 betamethasone dipropionate 0.05% topical cream 0 Refill(s), 86.4 Start Date: 12/31/23 Status: Ordered Repeat number: 1 Start: 05-11-2021 End: 03-23-2024 Start: 03-21-2020 End: 07-20-2024 Start: 03-21-2020 End: 07-20-2024 Start: 03-21-2020 End: 07-20-2024 Start: 03-21-2020 End: 05-11-2021 Betamethasone Dipropionate 0 .05 % cream Discontinued 1 NMA TOPICAL DAILY as needed for rash 45 January 31, 2021 4:22pm May 11, 2021 8:08am Jxdxtkgplo-Kcitwikt-Pldssfee ol (12 sources) Corticosteroid, beta2-Adrenergic Agonist Start: 07-02-2023 End: 08-19-2023 Start: 07-02-2023 End: 08-19-2023 Jxwtjvkwvb-Mvjlrdtr-Mtxesgrm ol (Breztri Aerosphere) 160-9-4.8 mcg/actuation HFA aerosol inhaler Discontinued 2 NMA INHALATION TWICE A DAY 10.7 1 July 02, 2023 12:00am August 19, 2023 1:30pm Start: 07-02-2023 End: 08-19-2023 Dpjxpofmdz-Yauvtabl-Hfihjdmh ol (Breztri Aerosphere) 160-9-4.8 mcg/actuation HFA aerosol inhaler Discontinued 2 NMA INHALATION TWICE A DAY 10.7 July 02, 2023 12:00am August 19, 2023 1:30pm celecoxib 200 mg oral capsule (20 sources) Nonsteroidal Anti-inflammatory Drug Start: 10-08-2017 End: 12-31-2022 CELECOXIB (CELEB RAVIN ORAL) Take by mouth. Active CELECOXIB (CELEB RAVIN ORAL) Take by mouth. 0 Active Comment on above: Take by mouth. cephalexin 250 mg oral capsu le (13 sources) Cephalosporin Antibacterial Start: 06-11-2024 End: 06-23-2024 Start: 02-20-2024 End: 02-25-2024 cephalexin 500 mg oral capsu le Dose : 500 mg = 1 cap(s), Oral, q12h, X 5 day(s), # 10 cap(s), 0 Refill(s), 02/25/24 5:07:00 PM EST, 83.7 Start Date: 02/20/24 Stop Date: 02/25/24 Status: Ordered Quantity: 10.0 Unit: cap(s) Repeat number: 1 chlordiazePOXIDE hydrochlori de 5 mg oral capsule (20 sources) Benzodiazepine Start: 10-10-2020 End: 07-20-2024 Start: 10-10-2020 End: 05-11-2021 take 10 mg by mouth every twelve hours Chlordiazepoxide Hcl Active 10 MG PO Q12H 120 May 11, 2021 8:08am Start: 10-08-2017 End: 10-10-2020 cholecalciferol 0.025 mg ora l capsule (20 sources) Vitamin D Start: 12-09-2018 End: 06-02-2023 doxycycline monohydrate 100 mg oral tablet (10 sources) Tetracycline-class Drug Start: 06-17-2024 End: 06-30-2024 hydroCHLOROthiazide 25 mg / spironolactone 25 mg oral tablet (20 sources) Thiazide Diuretic, Aldosterone Antagonist Start: 10-08-2017 End: 12-31-2022 Start: 10-08-2017 End: 12-31-2022 take 1 tablet by mouth once daily Spironolacton-Hydrochlorothiaz 25-25 mg tablet Discontinued 1 {tbl} PO daily October 04, 2020 3:28pm November 08, 2020 2:54pm Start: 10-08-2017 End: 12-31-2022 take 1 tablet by mouth once daily Spironolacton-Hydrochlorothiaz Discontin ued 1 TABLET PO daily October 04, 2020 3:28pm November 08, 2020 2:54pm losartan potassium 50 mg ora l tablet (20 sources) Angiotensin 2 Receptor Lila Start: 10-08-2017 End: 08-19-2023 meclizine hydrochloride 25 m g oral tablet (20 sources) Antiemetic Start: 10-08-2017 End: 07-20-2024 Start: 10-08-2017 End: 07-20-2024 Start: 10-08-2017 End: 06-12-2024 Meclizine 25 mg tablet Disco ntinued 25 mg PO 2 to 3 times per day as needed for dizziness 180 1 December 24, 2023 12:52pm June 12, 2024 12:58am MECLIZINE HCL (A NTIVERT ORAL) Take by mouth. Active MECLIZINE HCL (A NTIVERT ORAL) Take by mouth. 0 Active Comment on above: Take by mouth. 24 hr metFORMIN hydrochlorid e 500 mg extended release oral tablet (12 sources) Biguanide Start: 09-03-2023 End: 11-26-2023 methylPREDNISolone 4 mg oral tablet (12 sources) Corticosteroid Start: 07-29-2023 End: 08-19-2023 oxyCODONE hydrochloride 5 mg oral tablet (6 sources) Opioid Agonist Start: 09-13-2024 End: 09-28-2024 pantoprazole 40 mg delayed r elease oral tablet (14 sources) Proton Pump Inhibitor Start: 01-03-2024 End: 03-23-2024 sulfacetamide sodium 100 mg/ ml ophthalmic solution (20 sources) Sulfonamide Antibacterial Start: 04-28-2019 End: 06-02-2023 Start: 04-28-2019 End: 06-02-2023 Sulfacetamide Sodium (Bleph- 10) 10 % drops Discontinued 1 NMA OPHTHALMIC Q4H 5 1 October 07, 2019 2:57pm June 02, 2023 1:07pm Start: 04-28-2019 End: 06-02-2023 Sulfacetamide Sodium (Bleph- 10) 10 % drops Discontinued 1 DRP OPHTHALMIC Q4H 5 October 07, 2019 2:57pm June 02, 2023 1:07pm tretinoin 0.5 mg/ml topical cream (20 sources) Retinoid Start: 04-18-2020 End: 11-08-2020 Start: 04-18-2020 End: 11-08-2020 Tretinoin 0.05 % cream Disco ntinued 1 NMA TOPICAL AT BEDTIME 45 1 April 18, 2020 1:00am November 08, 2020 2:53pm Start: 04-18-2020 End: 11-08-2020 Tretinoin Discontinued 1 MELANIA LIC TOPICAL AT BEDTIME 45 April 18, 2020 1:00am November 08, 2020 2:53pm Umeclidinium-Vilanterol (12 sources) Anticholinergic, beta2-Adrenergic Agonist Start: 03-23-2024 End: 06-12-2024 Start: 03-23-2024 End: 06-12-2024 Umeclidinium-Vilanterol 62.5 -25 mcg/actuation blister with device Discontinued 1 NMA INHALATION daily 60 March 23, 2024 1:00am June 12, 2024 12:56am Start: 03-23-2024 End: 06-12-2024 Umeclidinium-Vilanterol 62.5 -25 mcg/actuation blister with device Discontinued 1 NMA INHALATION daily March 23, 2024 1:00am June 12, 2024 12:56am warfarin sodium 2 mg oral tablet (20 sources) Vitamin K Antagonist Start: 02-12-2023 JANTOVEN 1 mg tablet 02/12/2023 Active Start: 02-12-2023 End: 06-02-2023 Start: 08-26-2022 End: 02-04-2024 Start: 07-31-2022 End: 08-26-2022 Comment on above: Take 1 tablet by sonny th every afternoon. Problems Active Problems Problem Classification Problem Date Documented Da te Episodic/Chronic Acute and unspecified renal failure (2 sources) Acute renal failure syndrome; Translations: [Acute kidney failure, unspecified] Onset: 3 Episodic Acute bronchitis (20 sources) Acute bronchitis; Translations: [Acute bronchitis, unspecified] 05-04-2018 Episodic Acute posthemorrhagic anemia (1 source) Acute posthemorrhagic anemia; Translations: [Acute posthemorrhagic anemia] Episodic Adjustment disorders (20 sources) Mixed anxiety and depressive disorder; Translations: [Adjustment disorder with mixed anxiety and depressed mood] 05-28-2022 Chronic Anxiety disorders (18 sources) Anxiety; Translations: [Anxiety disorder, unspecified] 06-30-2024 Chronic Conditions associated with dizziness or vertigo (20 sources) Labyrinthitis; Translations: [Labyrinthitis, unspecified ear] Episodic Coronary atherosclerosis and other heart disease (1 source) Coronary atherosclerosis; Translations: [Atherosclerotic heart disease of [place] coronary artery without angina pectoris] Chronic Crushing injury or internal injury (4 sources) Injury of kidney 06-04-2022 Episodic Deficiency and other anemia (1 source) Anemia due to chronic blood loss; Translations: [Iron deficiency anemia secondary to blood loss (chronic)] Onset: 4 Chronic Deficiency and other anemia (18 sources) Iron deficiency anemia; Translations: [Iron deficiency anemia, unspecified] 06-30-2024 Episodic Diabetes mellitus without complication (20 sources) Type 2 diabetes mellitus; Translations: [Type 2 diabetes mellitus without complications] Onset: 4 Chronic Disorders of lipid metabolism (20 sources) Hypercholesterolemia; Translations: [Pure hypercholesterolemia, unspecified] 10-08-2017 Chronic Essential hypertension (20 sources) Hypertensive disorder; Translations: [Essential (primary) hypertension] Onset: 3 Chronic Fluid and electrolyte disorders (20 sources) Dehydration; Translations: [Dehydration] Onset: 3 Episodic Gastrointestinal hemorrhage (20 sources) Gastrointestinal hemorrhage; Translations: [Gastrointestinal hemorrhage, unspecified] Onset: 4 Episodic Inflammation; infection of eye (except that caused by tuberculosis or sexually transmitteddisease) (20 sources) Conjunctivitis; Translations: [Other mucopurulent conjunctivitis, left eye] 04-28-2019 Episodic Comment on above: Treated with Bleph-1 0 Malignant neoplasm without specification of site (20 sources) Malignant neoplastic disease; Translations: [Malignant (primary) neoplasm, unspecified] Onset: 5 06-23-2024 Chronic Comment on above: involving L lung, R scapular with pathologic fracture.Discussed disease, obtaining a biopsy to determine histology, she does not want interventions to prolong her life. Mood disorders (19 sources) Depressive disorder; Translations: [Depression, unspecified] Chronic Neoplasms of unspecified nature or uncertain behavior (1 source) Neoplastic disease; Translations: [Neoplasm of unspecified behavior of unspecified site] Onset: 4 Episodic Noninfectious gastroenteritis (1 source) Noninfectious enteritis; Translations: [Noninfective gastroenteritis and colitis, unspecified] Onset: 4 Episodic Osteoarthritis (20 sources) Arthritis; Translations: [Unspecified osteoarthritis, unspecified site] 10-08-2017 Chronic Other aftercare (20 sources) Long-term current use of anticoagulant; Translations: [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] Episodic Other circulatory disease (1 source) Other specified peripheral vascular diseases; Translations: [Other specified peripheral vascular diseases] Onset: 4 Chronic Other connective tissue disease (1 source) Artificial knee joint present; Translations: [Presence of unspecified artificial knee joint] Chronic Other injuries and conditions due to external causes (1 source) Injury of head; Translations: [Unspecified injury of head, initial encounter] Onset: 5 Episodic Other injuries and conditions due to external causes (1 source) Unspecified injury of head, initial encounter; Translations: [Unspecified injury of head, initial encounter] Onset: 5 Episodic Other lower respiratory disease (3 sources) Cough; Translations: [Acute cough] 05-13-2023 Episodic Other lower respiratory disease (1 source) Solitary nodule of lung; Translations: [Solitary pulmonary nodule] Episodic Other lower respiratory disease (20 sources) Cough; Translations: [Refractory chronic cough] 02-04-2024 Episodic Other nervous system disorders (20 sources) Impairment of balance; Translations: [Other abnormalities of gait and mobility] 07-24-2022 Episodic Other nervous system disorders (1 source) Other abnormalities of gait and mobility; Translations: [Other symptoms involving nervous and musculoskeletal systems] 07-24-2022 Episodic Other nutritional; endocrine; and metabolic disorders (20 sources) Body mass index 30+ - obesity; Translations: [Obesity, unspecified] 10-07-2019 Chronic Other nutritional; endocrine; and metabolic disorders (19 sources) Unintentional weight loss; Translations: [Abnormal weight loss] 03-02-2024 Episodic Other screening for suspected conditions (not mental disorders or infectious disease) (3 sources) Coag./bleeding tests abnormal; Translations: [Abnormal coagulation profile] Onset: 4 Episodic Other skin disorders (20 sources) Multiple skin tags; Translations: [Other hypertrophic disorders of the skin] 03-07-2021 Episodic Comment on above: BCA applied to 20 sk in tags on the neck--removal with chemical cautery Other skin disorders (1 source) Other hypertrophic disorders of the skin; Translations: [Unspecified hypertrophic and atrophic conditions of skin] Episodic Other skin disorders (18 sources) Eruption; Translations: [Rash and other nonspecific skin eruption] 06-30-2024 Episodic Other skin disorders (5 sources) Mass of shoulder region Episodic Other skin disorders (1 source) Localized swelling, mass and lump, unspecified upper limb; Translations: [Localized swelling, mass and lump, unspecified upper limb] Onset: 5 Episodic Other upper respiratory infections (20 sources) Upper respiratory infection; Translations: [Acute upper respiratory infection, unspecified] 03-19-2023 Episodic Phlebitis; thrombophlebitis and thromboembolism (18 sources) Deep venous thrombosis; Translations: [Acute embolism and thrombosis of unspecified deep veins of unspecified lower extremity] 06-30-2024 Episodic Pneumonia (except that caused by tuberculosis or sexually transmitted disease) (20 sources) Pneumonia; Translations: [Pneumonia, unspecified organism] Onset: 5 10-08-2017 Episodic Pulmonary heart disease (20 sources) Other pulmonary embolism without acute cor pulmonale; Translations: [Pulmonary embolism] Onset: 3 Episodic Secondary malignancies (20 sources) Secondary malignant neoplasm of bone; 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-2024 Chronic Secondary malignancies (2 sources) Secondary malignant neoplasm of bone; 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] Onset: 5 Chronic Secondary malignancies (1 source) Secondary malignant neoplasm of other specified sites; Translations: [Secondary malignant neoplasm of other specified sites] Onset: 5 Chronic Superficial injury; contusion (4 sources) Contusion of nose; Translations: [Contusion of nose, initial encounter] Onset: 5 Episodic Unclassified (1 source) Acute cough; Translations: [Acute cough] Onset: 4 Unclassified (5 sources) C79.51 - Secondary malignant neoplasm of bone,C80.1 - Malignant (primary) neoplasm, unspecified Unclassified (10 sources) 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 Unclassified (2 sources) C80.0 - Disseminated malignant neoplasm, unspecified,C79.51 - Secondary malignant neoplasm of bone,C80.1 - Malignant (primary) neoplasm, unspecified,R22.30 - Localized swelling, mass and lump, unspecified upper limb Urinary tract infections (2 sources) Urinary tract infectious disease; Translations: [Urinary tract infection, site not specified] Onset: 4 Episodic Past or Other Problems Problem Classification Problem Date Documented Da te Episodic/Chronic Abdominal pain (1 source) Unspecified abdominal pain; Translations: [Unspecified abdominal pain] Onset: 06-15-2024 Episodic Acquired foot deformities (14 sources) Acquired pes planus; Translations: [Flat foot [pes planus] (acquired), right foot] Onset: 11-26-2023 11-26-2023 Episodic Deficiency and other anemia (1 source) Anemia, unspecified; Translations: [Anemia, unspecified] Onset: 03-02-2024 Episodic Malaise and fatigue (20 sources) Asthenia; Translations: [Weakness] Onset: 06-24-2024 06-12-2024 Episodic Other lower respiratory disease (18 sources) Chronic cough; Translations: [Chronic cough] Onset: 03-25-2024 06-02-2023 Episodic Results Test Name Value Interpretation Reference Range Facility Radiation Oncology Visiton 0 10-06-2024 Radiation Oncology Visit Normal [facility] Radiation Oncology Visiton 0 09-29-2024 Radiation Oncology Visit Normal [facility] Absolute lymphocyte countOrd ered By: Brice David on 09-22-2024 Lymphocytes Auto (Unsp spec) [#/Vol] 1.25 10*3/uL 0.83-4.51 [facility] Anion gap in Serum or Plasma Ordered By: Brice David on 09-22-2024 Anion gap [Moles/Vol] 11 mmol/L 5-15 [facility] Automated lymphocyte count a s percentage of total leukocytesOrdered By: Brice David on 09-22-2024 Lymphocytes/100 WBC Auto (Unsp spec) 10.2 % Low 19-41 [facility] BUN/creatinine ratioOrdered By: [facility] on 09-22-2024 Urea nitrogen/Creatinine [Mass ratio] 19.6 mg/mg 10-20 [facility] Basophil percentageOrdered B y: Brice David on 09-22-2024 Basophils/100 WBC (Bld) 0.4 % 0-[address] [facility] Bilirubin, totalOrdered By: [facility]24 Bilirubin [Mass/Vol] 0.27 mg/dL 0.00-1.30 [facility] CBC W/Diff, Automatedon 08-26 Absolute Lymph 1.25 X10 3/uL Normal 0.83-4.51 [facility] Comment on above: Performed By: #### L [id number], L100.0100, [id number] ####[facility] [address] [place], [address] Absolute Neut 9.9 X10 3/uL High 2.0-7.7 [facility] Comment on above: Performed By: #### L 500.4050, L100.0100, [id number] ####[facility] [address] [place], [address] Basophils/100 WBC (Bld) 0.4 % Normal 0-[address] [facility] Comment on above: Performed By: #### L [id number], L100.0100, [id number] ####[facility] [address] [place], [address] Eosinophils/100 WBC (Bld) 1.1 % Normal 0-5 [facility] Comment on above: Performed By: #### L 500.4050, L100.0100, [id number] ####[facility] [address] [place], [address] Erythrocyte distribution width (RBC) [Ratio] 13.6 % Normal 11.6-14.6 [facility] Comment on above: Performed By: #### L [id number], L100.0100, [id number] ####[facility] [address] [place], [address] Hematocrit (Bld) [Volume fraction] 42.0 % Normal 37-47 [facility] Comment on above: Performed By: #### L 500.4050, L100.0100, [id number] ####[facility] [address] [place], [address] Hemoglobin (Bld) [Mass/Vol] 13.2 g/dL Normal 12.0-15.0 [facility] Comment on above: Performed By: #### L 500.4050, L100.0100, [id number] ####[facility] [address] [place], [address] IG% 0.400 Normal 0.0-0.9 [facility] Comment on above: Result Comment: IG% - Immature Granulocytes (promyelocytes, myelocytes andmetamyelocytes) > 1% indicates that a LEFT SHIFT is Present. Performed By: #### L 500.4050, L100.0100, [id number] ####[facility] [address] [place], [address] Lymphocytes/100 WBC (Bld) 10.2 % Low 19-41 [facility] Comment on above: Performed By: #### L 500.4050, L100.0100, [id number] ####[facility] [address] [place], [address] MCH (RBC) [Entitic mass] 28.4 pg Normal 27.0-32.0 [facility] Comment on above: Performed By: #### L 500.4050, L100.0100, [id number] ####[facility] [address] [place], [address] MCHC (RBC) [Mass/Vol] 31.4 g/dL Low 32-36 [facility] Comment on above: Performed By: #### L 500.4050, L100.0100, [id number] ####[facility] [address] [place], [address] MCV (RBC) [Entitic vol] 90.5 fL Normal 81-99 [facility] Comment on above: Performed By: #### L [id number], L100.0100, [id number] ####[facility] [address] [place], [address] Monocytes/100 WBC (Bld) 6.4 % Normal 0-[address] [facility] Comment on above: Performed By: #### L 500.4050, L100.0100, [id number] ####[facility] [address] [place], [address] Neutrophils/100 WBC (Bld) 81.5 % High 47-70 [facility] Comment on above: Performed By: #### L 500.4050, L100.0100, [id number] ####[facility] [address] [place], [address] Nucleated RBC (Bld) [#/Vol] 0 10*3/uL Normal 0-5 [facility] Comment on above: Performed By: #### L 500.4050, L100.0100, [id number] ####[facility] [address] [place], [address] Platelet mean volume (Bld) [Entitic vol] 8.8 fL Normal 6.2-12.0 [facility] Comment on above: Performed By: #### L 500.4050, L100.0100, [id number] ####[facility] [address] [place], [address] Platelets (Bld) [#/Vol] 694 10*3/uL High 150-450 [facility] Comment on above: Performed By: #### L 500.4050, L100.0100, [id number] ####[facility] [address] [place], [address] RBC (Bld) [#/Vol] 4.64 10*6/uL Normal 4.2-5.[address] [facility] Comment on above: Performed By: #### L 500.4050, L100.0100, [id number] ####[facility] [address] [place], [address] RDW SD 44.3 fl High 35.1-43.9 [facility] Comment on above: Performed By: #### L 500.4050, L100.0100, [id number] ####[facility] [address] [place], [address] WBC (Bld) [#/Vol] 12.2 10*3/uL High 4.4-11.[address] [facility] Comment on above: Performed By: #### L 500.4050, L100.0100, [id number] ####[facility] [address] [place], [address] Carbon dioxide, total [Moles /volume] in Central venous bloodOrdered By: Brice David on 09-22-2024 CO2 [Moles/Vol] 30.0 mmol/L 21.0-32.0 [facility] Chloride assayOrdered By: Adrienne David on 09-22-2024 Chloride [Moles/Vol] 98 mmol/L 98-108 [facility] Comprehensive Metabolic Prof ilon 09-22-2024 Albumin [Mass/Vol] 3.1 g/dL Low 3.4-4.8 [facility] Comment on above: Performed By: #### L 500.4050, L100.0100, [id number] ####[facility] [address] [place], [address] Albumin/Globulin [Mass ratio] 0.8 {ratio} Low 0.9-2.4 [facility] Comment on above: Performed By: #### L 500.4050, L100.0100, [id number] ####[facility] [address] [place], [address] ALK PHOS 257 U/L High 35-104 [facility] Comment on above: Performed By: #### L 500.4050, L100.0100, [id number] ####[facility] [address] [place], [address] ALT [Catalytic activity/Vol] 9 U/L Normal <=34 [facility] Comment on above: Performed By: #### L 500.4050, L100.0100, [id number] ####[facility] [address] [place], [address] AST [Catalytic activity/Vol] 21 U/L Normal <=31 [facility] Comment on above: Performed By: #### L 500.4050, L100.0100, [id number] ####[facility] [address] [place], [address] Bilirubin [Mass/Vol] 0.27 mg/dL Normal 0.00-1.30 [facility] Comment on above: Performed By: #### L 500.4050, L100.0100, [id number] ####[facility] [address] [place], [address] BUN/CRE 19.6 RATIO Normal 10-20 [facility] Comment on above: Performed By: #### L 500.4050, L100.0100, [id number] ####[facility] [address] [place], [address] Calcium [Mass/Vol] 9.6 mg/dL Normal 7.6-11.0 [facility] Comment on above: Performed By: #### L 500.4050, L100.0100, [id number] ####[facility] [address] [place], [address] Chloride [Moles/Vol] 98 mmol/L Normal 98-108 [facility] Comment on above: Performed By: #### L 500.4050, L100.0100, [id number] ####[facility] [address] [place], [address] CO2 [Moles/Vol] 30.0 mmol/L Normal 21.0-32.0 [facility] Comment on above: Performed By: #### L 500.4050, L100.0100, [id number] ####[facility] [address] [place], [address] Creatinine [Mass/Vol] 0.48 mg/dL Low 0.70-1.20 [facility] Comment on above: Performed By: #### L 500.4050, L100.0100, [id number] ####[facility] [address] [place], [address] GAP 11 Normal 5-15 [facility] Comment on above: Performed By: #### L 500.4050, L100.0100, [id number] ####[facility] [address] [place], [address] GFR/1.73 sq M.predicted among non-blacks MDRD (S/P/Bld) [Vol rate/Area] 96 mL/min/{1.73_m2} Normal >60 [facility] Comment on above: Result Comment: mL/m in/1.73m2 CKD-EPI Creatinine Equation (2020) Performed By: #### L 500.4050, L100.0100, [id number] ####[facility] [address] [place], [address] Globulin (S) [Mass/Vol] 4.0 g/dL Normal 2.2-4.2 [facility] Comment on above: Performed By: #### L 500.4050, L100.0100, [id number] ####[facility] [address] [place], [address] Glucose [Mass/Vol] 199 mg/dL High 70-99 [facility] Comment on above: Performed By: #### L 500.4050, L100.0100, [id number] ####[facility] [address] [place], [address] Potassium [Moles/Vol] 3.5 mmol/L Normal 3.3-5.1 [facility] Comment on above: Performed By: #### L 500.4050, L100.0100, [id number] ####[facility] [address] [place], [address] Sodium [Moles/Vol] 139 mmol/L Normal 133-145 [facility] Comment on above: Performed By: #### L 500.4050, L100.0100, [id number] ####[facility] [address] [place], [address] T PROT 7.1 g/dL Normal 5.9-8.4 [facility] Comment on above: Performed By: #### L 500.4050, L100.0100, [id number] ####[facility] [address] [place], [address] Urea nitrogen [Mass/Vol] 9 mg/dL Normal 4-19 [facility] Comment on above: Performed By: #### L 500.4050, L100.0100, [id number] ####[facility] [address] [place], [address] Eosinophil percentageOrdered By: Brice David on 09-22-2024 Eosinophils/100 WBC (Bld) 1.1 % 0-5 [facility] Erythrocyte distribution wid th ratioOrdered By: Brice David on 09-22-2024 Erythrocyte distribution width (RBC) [Ratio] 13.6 % 11.6-14.6 [facility] Erythrocyte distribution wid th standard deviationOrdered By: Brice David on 09-22-2024 Erythrocyte distribution width (RBC) [Ratio] 44.3 fl High 35.1-43.9 [facility] Glomerular filtration rate ( GFR) estimation/1.73 sq m using serum, plasma, or whole bOrdered By: Brice David on 09-22-2024 GFR/1.73 sq M.predicted among non-blacks MDRD (S/P/Bld) [Vol rate/Area] 96 mL/min/{1.73_m2} >60 [facility] Hematocrit Auto (Bld) [Volum e fraction]Ordered By: Brice David on 09-22-2024 Hematocrit (Bld) [Volume fraction] 42.0 % 37-47 [facility] Hemoglobin measurementOrdere d By: Brice David on 09-22-2024 Hemoglobin (Bld) [Mass/Vol] 13.2 g/dL 12.0-15.0 [facility] Immature granulocytes/100 WB C Auto (Bld)Ordered By: Brice David on 09-22-2024 Immature granulocytes/100 WBC (Bld) 0.400 % 0.0-0.9 [facility] LDHon 09-22-2024 LDH 170 U/L Normal 84-246 [facility] Comment on above: Order Comment: 1 Performed By: #### L 500.4050, L100.0100, [id number] ####[facility] [address] [place], [address] MCV (mean corpuscular volume ) determinationOrdered By: Brice David on 09-22-2024 MCV (RBC) [Entitic vol] 90.5 fL 81-99 [facility] Mean corpuscular hemoglobin (MCH) determinationOrdered By: Brice David on 09-22-2024 MCH (RBC) [Entitic mass] 28.4 pg 27.0-32.0 [facility] Monocyte percentageOrdered B y: Brice David on 09-22-2024 Monocytes/100 WBC (Bld) 6.4 % 0-[address] [facility] Neutrophil percentageOrdered By: Brice David on 09-22-2024 Neutrophils/100 WBC (Bld) 81.5 % High 47-70 [facility] No Panel InformationOrdered By: Brice David on 09-22-2024 21 U/L <32 [facility] Oncology Visit Reporton 08-26 Oncology Visit Report Normal [facility] Platelet countOrdered By: Adrienne David on 09-22-2024 Platelets (Bld) [#/Vol] 694 10*3/uL High 150-450 [facility] Potassium measurement (mass/ volume)Ordered By: Brice David on 09-22-2024 Potassium (Unsp spec) [Mass/Vol] 3.5 mmol/L 3.3-5.1 [facility] RBC Auto (Bld) [#/Vol]Ordere d By: Brice David on 09-22-2024 RBC (Bld) [#/Vol] 4.64 10*6/uL 4.2-5.[address] [facility] Radiation Oncology Visiton 0 09-22-2024 Radiation Oncology Visit Normal [facility] Serum creatinine measurement (mass/volume)Ordered By: Brice David on 09-22-2024 Creatinine [Mass/Vol] 0.48 mg/dL Low 0.70-1.20 [facility] Serum globulin measurementOr dered By: Brice David on 09-22-2024 Globulin (S) [Mass/Vol] 4.0 g/dL 2.2-4.[address] [facility] Serum glucose measurement (m ass/volume)Ordered By: Brice David on 09-22-2024 Glucose [Mass/Vol] 199 mg/dL High 70-99 [facility] Serum or plasma alanine cornejo otransferase (ALT) measurementOrdered By: Brice David on 09-22-2024 ALT [Catalytic activity/Vol] 9 U/L <35 [facility] Serum or plasma albumin mackenzie urement (mass/volume)Ordered By: Brice David on 09-22-2024 Albumin [Mass/Vol] 3.1 g/dL Low 3.4-4.8 [facility] Serum or plasma albumin/glob ulin mass ratioOrdered By: Brice David on 09-22-2024 Albumin/Globulin [Mass ratio] 0.8 {ratio} Low 0.9-2.4 [facility] Serum or plasma alkaline tian sphatase measurementOrdered By: Brice David on 09-22-2024 ALP [Catalytic activity/Vol] 257 U/L High 35-104 [facility] Serum or plasma calcium mackenzie urement (mass/volume)Ordered By: Brice David on 09-22-2024 Calcium [Mass/Vol] 9.6 mg/dL 7.6-11.0 [facility] Serum or plasma urea nitroge n measurement (mass/volume)Ordered By: Brice David on 09-22-2024 Urea nitrogen [Mass/Vol] 9 mg/dL 4-19 [facility] Sodium levelOrdered By: Rob David on 09-22-2024 Sodium [Moles/Vol] 139 mmol/L 133-145 [facility] Total proteinOrdered By: Hema purdy Joann on 09-22-2024 Protein [Mass/Vol] 7.1 g/dL 5.9-8.4 [facility] White blood cell (WBC) count Ordered By: Brice David on 09-22-2024 WBC (Bld) [#/Vol] 12.2 10*3/uL High 4.4-11.[address] [facility] SURG PATH REQUESTon 09-16-19 25 Addendum [facility] Comment on above: Result Comment: Sherry d tumor NGS panel: KRAS, IDH1 and GNAS hotspot mutations among other mutations. 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 FISH: No ALK or ROS1 rearrangement and no MET amplification Addendum electronically signed by Brayden Jimenez MD, PhD on 09/25/2024 at 2054 EDT Performed By: #### S URGP #### [facility] (DEFAULT) [address] [place] [address] Case Report [facility] Comment on above: Result Comment: Surg ical Pathology Report Case: [id number] Authorizing Provider: Brice David MD Collected: 09/15/2024 02:34 PM Ordering Location[facility] Received: 09/15/2024 02:34 PM [place] Pathologist: WILI Carl, PhD Specimen: SURG PATH, Outside Block; Lung Cancer Biomarker Panel (PULMOL (FFPE); PD-L1 IHC (22C3, Keytruda); HER2 IHC; Solid Tumor Mutation Panel (STPNGS, FFPE); Performed By: #### S URGP #### [facility] (DEFAULT) [address] [id number] Clinical History Request received ameya David MD of [facility] for Lung Cancer Biomarker Panel/PULMOL (FFPE); PD-L1 IHC (22C3, Keytruda), HER2 IHC (enhertu), Solid Tumor Mutation Panel (STPNGS, FFPE) testing. Pre-Op Diagnosis: right posterior shoulder mass. Normal [facility] Comment on above: Performed By: #### S URGP #### [facility] (DEFAULT) [address] [place] [address] Diagnosis Comments NGS also assessed ge jef from lung cancer panel. Normal [facility] Comment on above: Performed By: #### S URGP #### [facility] (DEFAULT) [address] [place] [address] Gross Description Normal [facility] Comment on above: Result Comment: The following material(s) are received from [facility], [address] [place] [id number], with an identifying surgical pathology report: one (1) paraffin block marked A2, labeled [id number]. The paraffin block that was received is submitted to the [facility] histology/IHC laboratory for recutting and additional staining: Lung Cancer Biomarker Panel/PULMOL (FFPE); PD-L1 IHC (22C3, Keytruda), HER2 IHC (Enhertu), Solid Tumor Mutation Panel (STPNGS, FFPE). Material with be returned upon completion of review. Grosser for this case was: Kelsi Eason Performed By: #### S URGP #### [facility] (DEFAULT) [address] [address] Microscopic Description Normal [facility] Comment on above: Result Comment: Tiss ue was assessed by a molecular pathologist to select areas for analysis and to correlate immunostaining with histology. No morphologic assessment was requested. All controls show appropriate reactivity. HER2 protein expression in this carcinomas is evaluated by manual quantitative immunohistochemistry on formalin-fixed, paraffin-embedded tissues, using clone [id number] (rabbit monoclonal, Deale) on a Deale auto-stainer. Membrane staining of tumor cells is evaluated and graded as follows: Negative: no staining (0); faint (1+) segmental or granular staining with any cellularity; moderate (2+) staining with any pattern in <50% tumor cells; intense (3+) circumferential, basolateral, or lateral staining in <= 10% tumor cells; Equivocal: moderate (2+) circumferential, basolateral or lateral staining in >=50% tumor cells (confirmed by repeat IHC) - send for FISH; Positive: intense (3+) circumferential, basolateral, or lateral staining in >=50% tumor cells; or intense (3+) circumferential, basolateral, or lateral staining in >10% but <50% of tumor cells (confirmed by repeat IHC) - send for FISH. (Mod Pathol 28:1481-91, 2015; Lancet Oncol 17:738-46, 2016). *PD-L1 IHC 22C3 pharmDx is a FDA-approved system configuration specialist diagnostic for pembrolizumab performed on Dako Autostainer Link 48. PD-L1 expression in gastric or GEJ adenocarcinoma is determined by manual quantification using Combined Positive Score (CPS), which is the number of PD-L1 staining cells (tumor cells, lymphocytes, macrophages) divided by the total viable tumor cells, multiplied by 100. Positivity is scored in viable tumor cells (partial or complete linear membrane staining at any intensity) and tumor-associated lymphocytes and macrophages (membrane and/or cytoplasmic staining at any intensity). Certain tissue processing factors such as decalcification, formalin fixation time outside an acceptable range (4 to 168 hrs), and prolonged time to fixation can affect PD-L1 staining/expression levels and results should be interpreted with caution in such instances. Additionally, tissue from older (greater than 5 yrs) formalin-fixed paraffin-embedded blocks may lose PD-L1 immunoreactivity. This assay is not validated for decalcified specimens. All immunohistochemistry, in situ hybridization, and histochemical tests were developed by and are performed at the [facility], [address] [place] [address], [place] [address].. All tests reported here, except those addressing HER2/albertina overexpression as a predictive marker, have not been cleared by or approved by the [place] Food and Drug Administration (FDA). The laboratory is regulated under CLIA as qualified to perform high-complexity testing. The tests are used for clinical purposes. They should not be regarded as investigational or for research. Performed By: #### S URGP #### [facility] (DEFAULT) [address] [place] [address] Pathologic Diagnosis Normal [facility] Comment on above: Result Comment: Outs linn block: [id number] (09/07/2024) A. Shoulder, Right, Posterior, Mass, CT-Guided Core Biopsy: HER2 expression level (IHC): Negative (Score 1+) PD-L1 IHC 22C3 pharmDx* expression level: Positive for PD-L1 expression (CPS >= 1) Combined Positive Score (CPS): 10 Solid tumor NGS panel and FISH assay to be reported separately at 1211 EDT Performed By: #### S URGP #### [facility] (DEFAULT) [address] [place] [address] Professional Interpretation Performed at: Normal [facility] Comment on above: Result Comment: [facility] For Immediate Release to Patient's American Hospital Associationhart? Yes [address] [address] Performed By: #### S URGP #### [facility] (DEFAULT) [address] [place] [address] Biopsy/Inj or Needle Placeme nton 09-08-2024 Biopsy/Inj or Needle Placement Normal [facility] Immunohistochemical Stainson 09-07-2024 Immunohistochemical Stains Normal [facility] Comment on above: Performed By: #### P IMCHRISTIAN, PSSII ####[facility] [address] [place], [place], [id number] Special Stain Group IIon Special Stain Group II Normal [facility] Comment on above: Performed By: #### P IMHI, PSSII ####[facility] [address] [place], [place], [address] Radiation Oncology Visiton 0 08-24-2024 Radiation Oncology Visit Normal [facility] Oncology Visit Reporton - Oncology Visit Report Normal [facility] Basic Metabolic Profile (BMP )on 07-29-2024 BUN Normal 4-19 [facility] Comment on above: Result Comment: Canc elled via OM: Order cancelled - Patient discharged Performed By: #### L 500.2500, L100.0100 ####[facility] [address] [place], [place], [address] BUN/CRE Normal 10-20 [facility] Comment on above: Result Comment: Canc elled via OM: Order cancelled - Patient discharged Performed By: #### L 500.2500, L100.0100 ####[facility] [address] [place], [address] Calcium Normal 7.6-11.0 [facility] Comment on above: Result Comment: Canc elled via OM: Order cancelled - Patient discharged Performed By: #### L 500.2500, L100.0100 ####[facility] [address] [place], [address] CL Normal 98-108 [facility] Comment on above: Result Comment: Canc elled via OM: Order cancelled - Patient discharged Performed By: #### L 500.2500, L100.0100 ####[facility] [address] [place], [address] CO2 Normal 21.0-32.0 [facility] Comment on above: Result Comment: Canc elled via OM: Order cancelled - Patient discharged Performed By: #### L 500.2500, L100.0100 ####[facility] [address] [place], [address] CREAT,SERUM Normal 0.70-1.20 [facility] Comment on above: Result Comment: Canc elled via OM: Order cancelled - Patient discharged Performed By: #### L 500.2500, L100.0100 ####[facility] [address] [place], [address] eGFR Normal >60 [facility] Comment on above: Result Comment: Canc elled via OM: Order cancelled - Patient discharged Performed By: #### L 500.2500, L100.0100 ####[facility] [address] [place], [address] GAP Normal 5-15 [facility] Comment on above: Result Comment: Canc elled via OM: Order cancelled - Patient discharged Performed By: #### L 500.2500, L100.0100 ####[facility] [address] [place], [address] GLU Normal 70-99 [facility] Comment on above: Result Comment: Canc elled via OM: Order cancelled - Patient discharged Performed By: #### L 500.2500, L100.0100 ####[facility] [address] [place], [address] Potassium Normal 3.3-5.1 [facility] Comment on above: Result Comment: Canc elled via OM: Order cancelled - Patient discharged Performed By: #### L 500.2500, L100.0100 ####[facility] [address] [place], [address] Basic Metabolic Profile (BMP) Normal 133-145 [facility] Comment on above: Result Comment: Canc elled via OM: Order cancelled - Patient discharged Performed By: #### L 500.2500, L100.0100 ####[facility] [address] [place], [address] CBC W/Diff, Automatedon 06-0 -2024 Absolute Neut Normal 2.0-7.7 [facility] Comment on above: Result Comment: Canc elled via OM: Order cancelled - Patient discharged Performed By: #### L 500.2500, L100.0100 ####[facility] [address] [place], [address] HCT Normal 37-47 [facility] Comment on above: Result Comment: Canc elled via OM: Order cancelled - Patient discharged Performed By: #### L 500.2500, L100.0100 ####[facility] [address] [place], [address] HGB Normal 12.0-15.0 [facility] Comment on above: Result Comment: Canc elled via OM: Order cancelled - Patient discharged Performed By: #### L 500.2500, L100.0100 ####[facility] [address] [place], [address] MCH Normal 27.0-32.0 [facility] Comment on above: Result Comment: Canc elled via OM: Order cancelled - Patient discharged Performed By: #### L 500.2500, L100.0100 ####[facility] [address] [place], [address] MCHC Normal 32-36 [facility] Comment on above: Result Comment: Canc elled via OM: Order cancelled - Patient discharged Performed By: #### L 500.2500, L100.0100 ####[facility] [address] [place], [address] MCV Normal 81-99 [facility] Comment on above: Result Comment: Canc elled via OM: Order cancelled - Patient discharged Performed By: #### L 500.2500, L100.0100 ####[facility] [address] [place], [address] NEUT% Normal 47-70 [facility] Comment on above: Result Comment: Canc elled via OM: Order cancelled - Patient discharged Performed By: #### L 500.2500, L100.0100 ####[facility] [address] [place], [address] PLT Normal 150-450 [facility] Comment on above: Result Comment: Canc elled via OM: Order cancelled - Patient discharged Performed By: #### L 500.2500, L100.0100 ####[facility] [address] [place], [address] RBC Normal 4.2-5.4 [facility] Comment on above: Result Comment: Canc elled via OM: Order cancelled - Patient discharged Performed By: #### L 500.2500, L100.0100 ####[facility] [address] [place], [address] RDW CV Normal 11.6-14.6 [facility] Comment on above: Result Comment: Canc elled via OM: Order cancelled - Patient discharged Performed By: #### L 500.2500, L100.0100 ####[facility] [address] [place], [address] RDW SD Normal 35.1-43.9 [facility] Comment on above: Result Comment: Canc elled via OM: Order cancelled - Patient discharged Performed By: #### L 500.2500, L100.0100 ####[facility] [address] [place], [address] WBC Normal 4.4-11.0 [facility] Comment on above: Result Comment: Canc elled via OM: Order cancelled - Patient discharged Performed By: #### L 500.2500, L100.0100 ####[facility] [address] [place], [address] Internal Medicine Office Vis iton 07-28-2024 Internal Medicine Office Visit Normal [facility] Basic Metabolic Profile (BMP )on 07-22-2024 BUN Normal 4-19 [facility] Comment on above: Result Comment: Canc elled via OM: Order cancelled - Patient discharged Performed By: #### L 100.0100, L500.2500 ####[facility] [address] [place], [address] BUN/CRE Normal 10-20 [facility] Comment on above: Result Comment: Canc elled via OM: Order cancelled - Patient discharged Performed By: #### L 100.0100, L500.2500 ####[facility] [address] [place], [address] Calcium Normal 7.6-11.0 [facility] Comment on above: Result Comment: Canc elled via OM: Order cancelled - Patient discharged Performed By: #### L 100.0100, L500.2500 ####[facility] [address] [place], [address] CL Normal 98-108 [facility] Comment on above: Result Comment: Canc elled via OM: Order cancelled - Patient discharged Performed By: #### L 100.0100, L500.2500 ####[facility] [address] [place], [address] CO2 Normal 21.0-32.0 [facility] Comment on above: Result Comment: Canc elled via OM: Order cancelled - Patient discharged Performed By: #### L 100.0100, L500.2500 ####[facility] [address] [place], [address] CREAT,SERUM Normal 0.70-1.20 [facility] Comment on above: Result Comment: Canc elled via OM: Order cancelled - Patient discharged Performed By: #### L 100.0100, L500.2500 ####[facility] [address] [place], [address] eGFR Normal >60 [facility] Comment on above: Result Comment: Canc elled via OM: Order cancelled - Patient discharged Performed By: #### L 100.0100, L500.2500 ####[facility] [address] [place], [address] GAP Normal 5-15 [facility] Comment on above: Result Comment: Canc elled via OM: Order cancelled - Patient discharged Performed By: #### L 100.0100, L500.2500 ####[facility] [address] [place], [address] GLU Normal 70-99 [facility] Comment on above: Result Comment: Canc elled via OM: Order cancelled - Patient discharged Performed By: #### L 100.0100, L500.2500 ####[facility] [address] [place], [address] Potassium Normal 3.3-5.1 [facility] Comment on above: Result Comment: Canc elled via OM: Order cancelled - Patient discharged Performed By: #### L 100.0100, L500.2500 ####[facility] [address] [place], [address] Basic Metabolic Profile (BMP) Normal 133-145 [facility] Comment on above: Result Comment: Canc elled via OM: Order cancelled - Patient discharged Performed By: #### L 100.0100, L500.2500 ####[facility] [address] [place], [address] CBC W/Diff, Automatedon 05-2 Absolute Neut Normal 2.0-7.7 [facility] Comment on above: Result Comment: Canc elled via OM: Order cancelled - Patient discharged Performed By: #### L 100.0100, L500.2500 ####[facility] [address] [place], [address] HCT Normal 37-47 [facility] Comment on above: Result Comment: Canc elled via OM: Order cancelled - Patient discharged Performed By: #### L 100.0100, L500.2500 ####[facility] [address] [place], [address] HGB Normal 12.0-15.0 [facility] Comment on above: Result Comment: Canc elled via OM: Order cancelled - Patient discharged Performed By: #### L 100.0100, L500.2500 ####[facility] [address] [place], [address] MCH Normal 27.0-32.0 [facility] Comment on above: Result Comment: Canc elled via OM: Order cancelled - Patient discharged Performed By: #### L 100.0100, L500.2500 ####[facility] [address] [place], [address] MCHC Normal 32-36 [facility] Comment on above: Result Comment: Canc elled via OM: Order cancelled - Patient discharged Performed By: #### L 100.0100, L500.2500 ####[facility] [address] [place], [address] MCV Normal 81-99 [facility] Comment on above: Result Comment: Canc elled via OM: Order cancelled - Patient discharged Performed By: #### L 100.0100, L500.2500 ####[facility] [address] [place], [address] NEUT% Normal 47-70 [facility] Comment on above: Result Comment: Canc elled via OM: Order cancelled - Patient discharged Performed By: #### L 100.0100, L500.2500 ####[facility] [address] [place], [address] PLT Normal 150-450 [facility] Comment on above: Result Comment: Canc elled via OM: Order cancelled - Patient discharged Performed By: #### L 100.0100, L500.2500 ####[facility] [address] [place], [address] RBC Normal 4.2-5.4 [facility] Comment on above: Result Comment: Canc elled via OM: Order cancelled - Patient discharged Performed By: #### L 100.0100, L500.2500 ####[facility] [address] [place], [address] RDW CV Normal 11.6-14.6 [facility] Comment on above: Result Comment: Canc elled via OM: Order cancelled - Patient discharged Performed By: #### L 100.0100, L500.2500 ####[facility] [address] [place], [address] RDW SD Normal 35.1-43.9 [facility] Comment on above: Result Comment: Canc elled via OM: Order cancelled - Patient discharged Performed By: #### L 100.0100, L500.2500 ####[facility] [address] [place], [address] WBC Normal 4.4-11.0 [facility] Comment on above: Result Comment: Canc elled via OM: Order cancelled - Patient discharged Performed By: #### L 100.0100, L500.2500 ####[facility] [address] [place], [address] Absolute lymphocyte countOrd ered By: [facility] on 07-15-2024 Lymphocytes Auto (Unsp spec) [#/Vol] 1.73 10*3/uL 0.83-4.51 [facility] Absolute neutrophil countOrd ered By[facility] Neutrophils (Bld) [#/Vol] 5.3 10*3/uL 2.0-7.7 [facility] Anion gap in Serum or Plasma Ordered By: Silvestre Garcia on 07-15-2024 Anion gap [Moles/Vol] 11 mmol/L 5-15 [facility] Automated lymphocyte count a s percentage of total leukocytesOrdered By: Silvestre Garcia on 07-15-2024 Lymphocytes/100 WBC Auto (Unsp spec) 21.2 % - [facility] BUN/creatinine ratioOrdered By: Silvestre Garcia on 07-15-2024 Urea nitrogen/Creatinine [Mass ratio] 29.6 mg/mg High 12-13 [facility] Basic Metabolic Profile (BMP )on 07-15-2024 BUN/CRE 29.6 RATIO High - [facility] Comment on above: Performed By: #### L 100.0100, L500.2500 ####[facility] [address] [place], [address] Calcium [Mass/Vol] 9.6 mg/dL Normal 7.6-11.0 [facility] Comment on above: Performed By: #### L 100.0100, L500.2500 ####[facility] [address] [place], [address] Chloride [Moles/Vol] 102 mmol/L Normal 98-108 [facility] Comment on above: Performed By: #### L 100.0100, L500.2500 ####[facility] [address] [place], [address] CO2 [Moles/Vol] 26.3 mmol/L Normal 21.0-32.0 [facility] Comment on above: Performed By: #### L 100.0100, L500.2500 ####[facility] [address] [place], [address] Creatinine [Mass/Vol] 0.51 mg/dL Low 0.70-1.20 [facility] Comment on above: Performed By: #### L 100.0100, L500.2500 ####[facility] [address] [place], [address] ECRCL 55.05 ml/min Normal 50-250 [facility] Comment on above: Performed By: #### L 100.0100, L500.2500 ####[facility] [address] [place], [address] GAP 11 Normal 5-15 [facility] Comment on above: Performed By: #### L 100.0100, L500.2500 ####[facility] [address] [place], [address] GFR/1.73 sq M.predicted among non-blacks MDRD (S/P/Bld) [Vol rate/Area] 95 mL/min/{1.73_m2} Normal >60 [facility] Comment on above: Result Comment: mL/m in/1.73m2 CKD-EPI Creatinine Equation (2020) Performed By: #### L 100.0100, L500.2500 ####[facility] [address] [place], [address] Glucose [Mass/Vol] 130 mg/dL High 70-99 [facility] Comment on above: Performed By: #### L 100.0100, L500.2500 ####[facility] [address] [place], [address] Potassium [Moles/Vol] 4.3 mmol/L Normal 3.3-5.1 [facility] Comment on above: Performed By: #### L 100.0100, L500.2500 ####[facility] [address] [place], [address] Sodium [Moles/Vol] 140 mmol/L Normal 133-145 [facility] Comment on above: Performed By: #### L 100.0100, L500.2500 ####[facility] [address] [place], [address] Urea nitrogen [Mass/Vol] 15 mg/dL Normal 4-19 [facility] Comment on above: Performed By: #### L 100.0100, L500.2500 ####[facility] [address] [place], [address] Basophil percentageOrdered B y: Silvestre Garcia on 07-15-2024 Basophils/100 WBC (Bld) 0.6 % 0-[address] [facility] CBC W/Diff, Automatedon 06-25 Absolute Lymph 1.73 X10 3/uL Normal 0.83-4.51 [facility] Comment on above: Performed By: #### L 100.0100, L500.2500 ####[facility] [address] [place], [address] Absolute Neut 5.3 X10 3/uL Normal 2.0-7.7 [facility] Comment on above: Performed By: #### L 100.0100, L500.2500 ####[facility] [address] [place], [address] Basophils/100 WBC (Bld) 0.6 % Normal 0-[address] [facility] Comment on above: Performed By: #### L 100.0100, L500.2500 ####[facility] [address] [place], [address] Eosinophils/100 WBC (Bld) 3.6 % Normal 0-5 [facility] Comment on above: Performed By: #### L 100.0100, L500.2500 ####[facility] [address] [place], [address] Erythrocyte distribution width (RBC) [Ratio] 13.6 % Normal 11.6-14.6 [facility] Comment on above: Performed By: #### L 100.0100, L500.2500 ####[facility] [address] [place], [address] Hematocrit (Bld) [Volume fraction] 37.4 % Normal 37-47 [facility] Comment on above: Performed By: #### L 100.0100, L500.2500 ####[facility] [address] [place], [address] Hemoglobin (Bld) [Mass/Vol] 12.0 g/dL Normal 12.0-15.0 [facility] Comment on above: Performed By: #### L 100.0100, L500.2500 ####[facility] [address] [place], [address] IG% 0.400 Normal 0.0-0.9 [facility] Comment on above: Result Comment: IG% - Immature Granulocytes (promyelocytes, myelocytes andmetamyelocytes) > 1% indicates that a LEFT SHIFT is Present. Performed By: #### L 100.0100, L500.2500 ####[facility] [address] [place], [address] Lymphocytes/100 WBC (Bld) 21.2 % Normal 19-41 [facility] Comment on above: Performed By: #### L 100.0100, L500.2500 ####[facility] [address] [place], [address] MCH (RBC) [Entitic mass] 28.4 pg Normal 27.0-32.0 [facility] Comment on above: Performed By: #### L 100.0100, L500.2500 ####[facility] [address] [place], [address] MCHC (RBC) [Mass/Vol] 32.1 g/dL Normal 32-36 [facility] Comment on above: Performed By: #### L 100.0100, L500.2500 ####[facility] [address] [place], [address] MCV (RBC) [Entitic vol] 88.4 fL Normal 81-99 [facility] Comment on above: Performed By: #### L 100.0100, L500.2500 ####[facility] [address] [place], [address] Monocytes/100 WBC (Bld) 8.8 % Normal 0-10 [facility] Comment on above: Performed By: #### L 100.0100, L500.2500 ####[facility] [address] [place], [address] Neutrophils/100 WBC (Bld) 65.4 % Normal 47-70 [facility] Comment on above: Performed By: #### L 100.0100, L500.2500 ####[facility] [address] [place], [address] Nucleated RBC (Bld) [#/Vol] 0 10*3/uL Normal 0-5 [facility] Comment on above: Performed By: #### L 100.0100, L500.2500 ####[facility] [address] [place], [address] Platelet mean volume (Bld) [Entitic vol] 9.8 fL Normal 6.2-12.0 [facility] Comment on above: Performed By: #### L 100.0100, L500.2500 ####[facility] [address] [place], [address] Platelets (Bld) [#/Vol] 522 10*3/uL High 150-450 [facility] Comment on above: Performed By: #### L 100.0100, L500.2500 ####[facility] [address] [place], [address] RBC (Bld) [#/Vol] 4.23 10*6/uL Normal 4.2-5.[address] [facility] Comment on above: Performed By: #### L 100.0100, L500.2500 ####[facility] [address] [place], [address] RDW SD 43.7 fl Normal 35.1-43.9 [facility] Comment on above: Performed By: #### L 100.0100, L500.2500 ####[facility] [address] [place], [address] WBC (Bld) [#/Vol] 8.2 10*3/uL Normal 4.4-11.0 [facility] Comment on above: Performed By: #### L 100.0100, L500.2500 ####[facility] [address] [place], [address] Carbon dioxide, total [Moles /volume] in Central venous bloodOrdered By: Silvestre Garcia on 07-15-2024 CO2 [Moles/Vol] 26.3 mmol/L 21.0-32.0 [facility] Chloride assayOrdered By: Felipe Garcia on 07-15-2024 Chloride [Moles/Vol] 102 mmol/L 98-108 [facility] Eosinophil percentageOrdered By: Silvestre Garcia on 07-15-2024 Eosinophils/100 WBC (Bld) 3.6 % 0-5 [facility] Erythrocyte distribution wid th ratioOrdered By: Silvestre Garcia 07-15-2024 Erythrocyte distribution width (RBC) [Ratio] 13.6 % 11.6-14.6 [facility] Erythrocyte distribution wid th standard deviationOrdered By: Silvestre Garcia 07-15-2024 Erythrocyte distribution width (RBC) [Ratio] 43.7 fl 35.1-43.9 [facility] Glomerular filtration rate ( GFR) estimation/1.73 sq m using serum, plasma, or whole bOrdered By: Silvestre Garcia 07-15-2024 GFR/1.73 sq M.predicted among non-blacks MDRD (S/P/Bld) [Vol rate/Area] 95 mL/min/{1.73_m2} >60 [facility] Comment on above: mL/min/1.73m2 CKD-EP I Creatinine Equation (2020) Hematocrit Auto (Bld) [Volum e fraction]Ordered By: Silvestre Garcia 07-15-2024 Hematocrit (Bld) [Volume fraction] 37.4 % 37-47 [facility] Hemoglobin measurementOrdere d By: Silvestre Garcia 07-15-2024 Hemoglobin (Bld) [Mass/Vol] 12.0 g/dL 12.0-15.0 [facility] Immature granulocytes/100 WB C Auto (Bld)Ordered By: Silvestre Garcia 07-15-2024 Immature granulocytes/100 WBC (Bld) 0.400 % 0.0-0.9 [facility] Comment on above: IG% - Immature Granu locytes (promyelocytes, myelocytes and metamyelocytes) > 1% indicates that a LEFT SHIFT is Present. MCV (mean corpuscular volume ) determinationOrdered By: Silvestre Garcia 07-15-2024 MCV (RBC) [Entitic vol] 88.4 fL 81-[address] [facility] Mean corpuscular hemoglobin (MCH) determinationOrdered By: Silvestre Garcia 07-15-2024 MCH (RBC) [Entitic mass] 28.4 pg 27.0-32.0 [facility] Mean corpuscular hemoglobin concentration (MCHC) determinationOrdered By: Silvestre Garcia 07-15-2024 MCHC (RBC) [Mass/Vol] 32.1 g/dL 32-36 [facility] Mean platelet volume determi nationOrdered By: Silvestre Garcia on 07-15-2024 Platelet mean volume (Bld) [Entitic vol] 9.8 fL 6.2-12.0 [facility] Monocyte percentageOrdered B y: Silvestre Garcia on 07-15-2024 Monocytes/100 WBC (Bld) 8.8 % 0-[address] [facility] Neutrophil percentageOrdered By: Silvestre Garcia on 07-15-2024 Neutrophils/100 WBC (Bld) 65.4 % 47-70 [facility] Nucleated red blood cell per centageOrdered By: Silvestre Garcia on 07-15-2024 Nucleated RBC/100 WBC (Bld) [Ratio] 0 % 0-5 [facility] Platelet countOrdered By: Felipe Garcia on 07-15-2024 Platelets (Bld) [#/Vol] 522 10*3/uL High 150-450 [facility] Potassium measurement (mass/ volume)Ordered By: Silvestre Garcia on 07-15-2024 Potassium (Unsp spec) [Mass/Vol] 4.3 mmol/L 3.3-5.1 [facility] RBC Auto (Bld) [#/Vol]Ordere d By: Silvestre Garcia on 07-15-2024 RBC (Bld) [#/Vol] 4.23 10*6/uL 4.2-5.[address] [facility] Serum creatinine measurement (mass/volume)Ordered By: Silvestre Garcia on 07-15-2024 Creatinine [Mass/Vol] 0.51 mg/dL Low 0.70-1.20 [facility] Serum glucose measurement (m ass/volume)Ordered By: Silvestre Garcia on 07-15-2024 Glucose [Mass/Vol] 130 mg/dL High 70-99 [facility] Serum or plasma calcium mackenzie urement (mass/volume)Ordered By: Silvestre Garcia 07-15-2024 Calcium [Mass/Vol] 9.6 mg/dL 7.6-11.0 [facility] Serum or plasma urea nitroge n measurement (mass/volume)Ordered By: Silvestre Garcia on 07-15-2024 Urea nitrogen [Mass/Vol] 15 mg/dL 4-19 [facility] Sodium levelOrdered By: Silvestre Garcia on 05-22-2025 Sodium [Moles/Vol] 140 mmol/L 133-145 [facility] White blood cell (WBC) count Ordered By: Silvestre Garcia on 07-15-2024 WBC (Bld) [#/Vol] 8.2 10*3/uL 4.4-11.0 [facility] Shoulder min 2 Viewson 07-11 Shoulder min 2 Views Normal [facility] Chest PA and Lateralon 07-09 Chest PA and Lateral Normal [facility] Basic Metabolic Profile (BMP )on 07-08-2024 BUN/CRE 31.7 RATIO High 10-20 [facility] Comment on above: Performed By: #### L 100.0100, L500.2500 ####[facility] [address] [place], [address] Calcium [Mass/Vol] 9.3 mg/dL Normal 7.6-11.0 [facility] Comment on above: Performed By: #### L 100.0100, L500.2500 ####[facility] [address] [place], [address] Chloride [Moles/Vol] 100 mmol/L Normal 98-108 [facility] Comment on above: Performed By: #### L 100.0100, L500.2500 ####[facility] [address] [place], [address] CO2 [Moles/Vol] 25.7 mmol/L Normal 21.0-32.0 [facility] Comment on above: Performed By: #### L 100.0100, L500.2500 ####[facility] [address] [place], [address] Creatinine [Mass/Vol] 0.44 mg/dL Low 0.70-1.20 [facility] Comment on above: Performed By: #### L 100.0100, L500.2500 ####[facility] [address] [place], [address] ECRCL 55.49 ml/min Normal 50-250 [facility] Comment on above: Performed By: #### L 100.0100, L500.2500 ####[facility] [address] [place], [address] GAP 11 Normal 5-15 [facility] Comment on above: Performed By: #### L 100.0100, L500.2500 ####[facility] [address] [place], [address] GFR/1.73 sq M.predicted among non-blacks MDRD (S/P/Bld) [Vol rate/Area] 98 mL/min/{1.73_m2} Normal >60 [facility] Comment on above: Result Comment: mL/m in/1.73m2 CKD-EPI Creatinine Equation (2020) Performed By: #### L 100.0100, L500.2500 ####[facility] [address] [place], [address] Glucose [Mass/Vol] 137 mg/dL High 70-99 [facility] Comment on above: Performed By: #### L 100.0100, L500.2500 ####[facility] [address] [place], [address] Potassium [Moles/Vol] 4.0 mmol/L Normal 3.3-5.1 [facility] Comment on above: Performed By: #### L 100.0100, L500.2500 ####[facility] [address] [place], [address] Sodium [Moles/Vol] 137 mmol/L Normal 133-145 [facility] Comment on above: Performed By: #### L 100.0100, L500.2500 ####[facility] [address] [place], [address] Urea nitrogen [Mass/Vol] 14 mg/dL Normal 4-19 [facility] Comment on above: Performed By: #### L 100.0100, L500.2500 ####[facility] [address] [place], [address] CBC W/Diff, Automatedon 05-02 28-2024 Absolute Lymph 1.36 X10 3/uL Normal 0.83-4.51 [facility] Comment on above: Performed By: #### L 100.0100, L500.2500 ####[facility] [address] [place], [address] Absolute Neut 6.6 X10 3/uL Normal 2.0-7.7 [facility] Comment on above: Performed By: #### L 100.0100, L500.2500 ####[facility] [address] [place], [address] Basophils/100 WBC (Bld) 0.3 % Normal 0-[address] [facility] Comment on above: Performed By: #### L 100.0100, L500.2500 ####[facility] [address] [place], [address] Eosinophils/100 WBC (Bld) 3.2 % Normal 0-5 [facility] Comment on above: Performed By: #### L 100.0100, L500.2500 ####[facility] [address] [place], [address] Erythrocyte distribution width (RBC) [Ratio] 13.1 % Normal 11.6-14.6 [facility] Comment on above: Performed By: #### L 100.0100, L500.2500 ####[facility] [address] [place], [address] Hematocrit (Bld) [Volume fraction] 34.7 % Low 37-47 [facility] Comment on above: Performed By: #### L 100.0100, L500.2500 ####[facility] [address] [place], [address] Hemoglobin (Bld) [Mass/Vol] 11.2 g/dL Low 12.0-15.0 [facility] Comment on above: Performed By: #### L 100.0100, L500.2500 ####[facility] [address] [place], [address] IG% 0.400 Normal 0.0-0.9 [facility] Comment on above: Result Comment: IG% - Immature Granulocytes (promyelocytes, myelocytes andmetamyelocytes) > 1% indicates that a LEFT SHIFT is Present. Performed By: #### L 100.0100, L500.2500 ####[facility] [address] [place], [address] Lymphocytes/100 WBC (Bld) 14.6 % Low 19-41 [facility] Comment on above: Performed By: #### L 100.0100, L500.2500 ####[facility] [address] [place], [address] MCH (RBC) [Entitic mass] 28.1 pg Normal 27.0-32.0 [facility] Comment on above: Performed By: #### L 100.0100, L500.2500 ####[facility] [address] [place], [address] MCHC (RBC) [Mass/Vol] 32.3 g/dL Normal 32-36 [facility] Comment on above: Performed By: #### L 100.0100, L500.2500 ####[facility] [address] [place], [address] MCV (RBC) [Entitic vol] 87.0 fL Normal 81-[address] [facility] Comment on above: Performed By: #### L 100.0100, L500.2500 ####[facility] [address] [place], [address] Monocytes/100 WBC (Bld) 10.8 % High 0-[address] [facility] Comment on above: Performed By: #### L 100.0100, L500.2500 ####[facility] [address] [place], [address] Neutrophils/100 WBC (Bld) 70.7 % High 47-70 [facility] Comment on above: Performed By: #### L 100.0100, L500.2500 ####[facility] [address] [place], [address] Nucleated RBC (Bld) [#/Vol] 0 10*3/uL Normal 0-5 [facility] Comment on above: Performed By: #### L 100.0100, L500.2500 ####[facility] [address] [place], [address] Platelet mean volume (Bld) [Entitic vol] 9.8 fL Normal 6.2-12.0 [facility] Comment on above: Performed By: #### L 100.0100, L500.2500 ####[facility] [address] [place], [address] Platelets (Bld) [#/Vol] 452 10*3/uL High 150-450 [facility] Comment on above: Performed By: #### L 100.0100, L500.2500 ####[facility] [address] [place], [address] RBC (Bld) [#/Vol] 3.99 10*6/uL Low 4.2-5.[address] [facility] Comment on above: Performed By: #### L 100.0100, L500.2500 ####[facility] [address] [place], [address] RDW SD 41.1 fl Normal 35.1-43.9 [facility] Comment on above: Performed By: #### L 100.0100, L500.2500 ####[facility] [address] [place], [address] WBC (Bld) [#/Vol] 9.3 10*3/uL Normal 4.4-11.0 [facility] Comment on above: Performed By: #### L 100.0100, L500.2500 ####[facility] [address] [place], [address] Basic Metabolic Profile (BMP )on 07-03-2024 BUN/CRE 29.4 RATIO High 10-20 [facility] Comment on above: Performed By: #### L 500.2500 ####[facility] [address] [place], [address] Calcium [Mass/Vol] 9.2 mg/dL Normal 7.6-11.0 [facility] Comment on above: Performed By: #### L 500.2500 ####[facility] [address] [place], [address] Chloride [Moles/Vol] 101 mmol/L Normal 98-108 [facility] Comment on above: Performed By: #### L 500.2500 ####[facility] [address] [place], [address] CO2 [Moles/Vol] 24.8 mmol/L Normal 21.0-32.0 [facility] Comment on above: Performed By: #### L 500.2500 ####[facility] [address] [place], [address] Creatinine [Mass/Vol] 0.45 mg/dL Low 0.70-1.20 [facility] Comment on above: Performed By: #### L 500.2500 ####[facility] [address] [place], [address] ECRCL 55.69 ml/min Normal 50-250 [facility] Comment on above: Performed By: #### L 500.2500 ####[facility] [address] [place], [address] GAP 11 Normal 5-15 [facility] Comment on above: Performed By: #### L 500.2500 ####[facility] [address] [place], [address] GFR/1.73 sq M.predicted among non-blacks MDRD (S/P/Bld) [Vol rate/Area] 98 mL/min/{1.73_m2} Normal >60 [facility] Comment on above: Result Comment: mL/m in/1.73m2 CKD-EPI Creatinine Equation (2020) Performed By: #### L 500.2500 ####[facility] [address] [place], [address] Glucose [Mass/Vol] 120 mg/dL High 70-99 [facility] Comment on above: Performed By: #### L 500.2500 ####[facility] [address] [place], [address] Potassium [Moles/Vol] 3.5 mmol/L Normal 3.3-5.1 [facility] Comment on above: Performed By: #### L 500.2500 ####[facility] [address] [place], [address] Sodium [Moles/Vol] 137 mmol/L Normal 133-145 [facility] Comment on above: Performed By: #### L 500.2500 ####[facility] [address] [place], [address] Urea nitrogen [Mass/Vol] 13 mg/dL Normal 4-19 [facility] Comment on above: Performed By: #### L 500.2500 ####[facility] [address] [place], [address] Calculated very low density lipoprotein (VLDL) cholesterol measurementOrdered By: Silvestre Garcia on 07-02-2024 Calculated very low density lipoprotein (VLDL) cholesterol measurement 22 mg/dL 5-40 [facility] LDL calc ser/plasOrdered By: Silvestre Garcia on 07-02-2024 Cholesterol in LDL [Mass/Vol] 93 mg/dL [facility] Comment on above: Andvasjpvx=628-512 m g/dL & Higher Warg=299 mg/dL or greater Lipid Profileon 07-02-2024 CHOL:HDL 3.68 Normal [facility] Comment on above: Performed By: #### L 500.4100 ####[facility] [address] [place], [address] Cholesterol [Mass/Vol] 158 mg/dL Normal <=200 [facility] Comment on above: Result Comment: Chol esterol level, Desirable <200 mg/dLBorderline high cholesterol 200-239 mg/dLHigh cholesterol >=240 mg/dLRecommendations of the NCEP Adult Treatment Panel for thefollowing risk-cutoff thresholds for the [place] Americanpulation. Performed By: #### L 500.4100 ####[facility] [address] [place], [address] Cholesterol in HDL [Mass/Vol] 43 mg/dL Normal [facility] Comment on above: Result Comment: Zarina onal Cholesterol Education Program (NCEP) guidelines:<40 mg/dL: Low HDL-cholesterol (major risk factor for CHD)>= 60 mg/dL: High HDL-cholesterol (negative risk factor forCHD)HDL-cholesterol is affected by a number of factors, e.g.smoking, exercise, hormones, sex and age. Performed By: #### L 500.4100 ####[facility] [address] [place], [address] Cholesterol in LDL [Mass/Vol] 93 mg/dL Normal [facility] Comment on above: Result Comment: Bord cioctb=576-135 mg/dL Higher Yanl=592 mg/dL or greater Performed By: #### L 500.4100 ####[facility] [address] [place], [address] Cholesterol in VLDL [Mass/Vol] 22 mg/dL Normal 5-40 [facility] Comment on above: Performed By: #### L 500.4100 ####[facility] [address] [place], [place], [address] Triglyceride [Mass/Vol] 109 mg/dL Normal [facility] Comment on above: Result Comment: The drugs N-Acetylcysteine and Metamizole may falselydepress this assay.Normal range: <150 mg/dLBorderline High: 150-199 mg/dLHigh: 200-499 mg/dLVery High: >500 mg/dL Performed By: #### L 500.4100 ####[facility] [address] [facility] [place], [address] Screening total cholesterol/ high density lipoprotein (HDL) cholesterol ratioOrdered By: Silvestre Garcia on 07-02-2024 Cholesterol.total/Choles terol in HDL [Mass ratio] 3.68 {ratio} [facility] Serum or plasma cholesterol in HDL measurement (mass/volume)Ordered By: Silvestre Garcia on 07-02-2024 Cholesterol in HDL [Mass/Vol] 43 mg/dL >40 [facility] Comment on above: National Cholesterol Education Program (NCEP) guidelines:<40 mg/dL: Low HDL-cholesterol (major risk factor for CHD)>= 60 mg/dL: High HDL-cholesterol (negative risk factor for CHD)HDL-cholesterol is affected by a number of factors, e.g. smoking, exercise, hormones, sex and age. Serum or plasma cholesterol measurement (mass/volume)Ordered By: Silvestre Garcia on 07-02-2024 Cholesterol [Mass/Vol] 158 mg/dL <201 [facility] Comment on above: Cholesterol level, D esirable <200 mg/dLBorderline high cholesterol 200-239 mg/dLHigh cholesterol >=240 mg/dLRecommendations of the NCEP Adult Treatment Panel for the following risk-cutoff thresholds for the [place] population. Triglycerides measurementOrd ered By: Silvestre Garcia on 07-02-2024 Triglyceride [Mass/Vol] 109 mg/dL <[address] [facility] Comment on above: The drugs N-Acetylcy steine and Metamizole may falsely depress this assay. Normal range: <150 mg/dLBorderline High: 150-199 mg/dLHigh: 200-499 mg/dLVery High: >500 mg/dL Basic Metabolic Profile (BMP )on 07-01-2024 BUN/CRE 24.0 RATIO High 10-20 [facility] Comment on above: Performed By: #### L 500.2500, L100.0100 ####[facility] [address] [place], [address] Calcium [Mass/Vol] 9.1 mg/dL Normal 7.6-11.0 [facility] Comment on above: Performed By: #### L 500.2500, L100.0100 ####[facility] [address] [place], [address] Chloride [Moles/Vol] 101 mmol/L Normal 98-108 [facility] Comment on above: Performed By: #### L 500.2500, L100.0100 ####[facility] [address] [place], [address] CO2 [Moles/Vol] 28.5 mmol/L Normal 21.0-32.0 [facility] Comment on above: Performed By: #### L 500.2500, L100.0100 ####[facility] [address] [place], [address] Creatinine [Mass/Vol] 0.44 mg/dL Low 0.70-1.20 [facility] Comment on above: Performed By: #### L 500.2500, L100.0100 ####[facility] [address] [place], [address] ECRCL 55.69 ml/min Normal 50-250 [facility] Comment on above: Performed By: #### L 500.2500, L100.0100 ####[facility] [address] [place], [address] GAP 9 Normal 5-15 [facility] Comment on above: Performed By: #### L 500.2500, L100.0100 ####[facility] [address] [place], [address] GFR/1.73 sq M.predicted among non-blacks MDRD (S/P/Bld) [Vol rate/Area] 98 mL/min/{1.73_m2} Normal >60 [facility] Comment on above: Result Comment: mL/m in/1.73m2 CKD-EPI Creatinine Equation (2020) Performed By: #### L 500.2500, L100.0100 ####[facility] [address] [place], [address] Glucose [Mass/Vol] 134 mg/dL High 70-99 [facility] Comment on above: Performed By: #### L 500.2500, L100.0100 ####[facility] [address] [place], [address] Potassium [Moles/Vol] 3.1 mmol/L Low 3.3-5.1 [facility] Comment on above: Performed By: #### L 500.2500, L100.0100 ####[facility] [address] [place], [address] Sodium [Moles/Vol] 138 mmol/L Normal 133-145 [facility] Comment on above: Performed By: #### L 500.2500, L100.0100 ####[facility] [address] [place], [address] Urea nitrogen [Mass/Vol] 11 mg/dL Normal 4-19 [facility] Comment on above: Performed By: #### L 500.2500, L100.0100 ####[facility] [address] [place], [address] CBC W/Diff, Automatedon 05-0 Absolute Lymph 1.41 X10 3/uL Normal 0.83-4.51 [facility] Comment on above: Performed By: #### L 500.2500, L100.0100 ####[facility] [address] [place], [address] Absolute Neut 9.4 X10 3/uL High 2.0-7.7 [facility] Comment on above: Performed By: #### L 500.2500, L100.0100 ####[facility] [address] [place], [address] Basophils/100 WBC (Bld) 0.4 % Normal 0-[address] [facility] Comment on above: Performed By: #### L 500.2500, L100.0100 ####[facility] [address] [place], [address] Eosinophils/100 WBC (Bld) 2.2 % Normal 0-5 [facility] Comment on above: Performed By: #### L 500.2500, L100.0100 ####[facility] [address] [place], [address] Erythrocyte distribution width (RBC) [Ratio] 13.4 % Normal 11.6-14.6 [facility] Comment on above: Performed By: #### L 500.2500, L100.0100 ####[facility] [address] [place], [address] Hematocrit (Bld) [Volume fraction] 32.3 % Low 37-47 [facility] Comment on above: Performed By: #### L 500.2500, L100.0100 ####[facility] [address] [place], [address] Hemoglobin (Bld) [Mass/Vol] 10.6 g/dL Low 12.0-15.0 [facility] Comment on above: Performed By: #### L 500.2500, L100.0100 ####[facility] [address] [place], [address] IG% 0.400 Normal 0.0-0.9 [facility] Comment on above: Result Comment: IG% - Immature Granulocytes (promyelocytes, myelocytes andmetamyelocytes) > 1% indicates that a LEFT SHIFT is Present. Performed By: #### L 500.2500, L100.0100 ####[facility] [address] [place], [address] Lymphocytes/100 WBC (Bld) 11.3 % Low 19-41 [facility] Comment on above: Performed By: #### L 500.2500, L100.0100 ####[facility] [address] [place], [address] MCH (RBC) [Entitic mass] 28.2 pg Normal 27.0-32.0 [facility] Comment on above: Performed By: #### L 500.2500, L100.0100 ####[facility] [address] [place], [address] MCHC (RBC) [Mass/Vol] 32.8 g/dL Normal 32-36 [facility] Comment on above: Performed By: #### L 500.2500, L100.0100 ####[facility] [address] [place], [address] MCV (RBC) [Entitic vol] 85.9 fL Normal 81-99 [facility] Comment on above: Performed By: #### L 500.2500, L100.0100 ####[facility] [address] [place], [address] Monocytes/100 WBC (Bld) 10.5 % High 0-[address] [facility] Comment on above: Performed By: #### L 500.2500, L100.0100 ####[facility] [address] [place], [address] Neutrophils/100 WBC (Bld) 75.2 % High 47-70 [facility] Comment on above: Performed By: #### L 500.2500, L100.0100 ####[facility] [address] [place], [address] Nucleated RBC (Bld) [#/Vol] 0 10*3/uL Normal 0-5 [facility] Comment on above: Performed By: #### L 500.2500, L100.0100 ####[facility] [address] [place], [address] Platelet mean volume (Bld) [Entitic vol] 10.1 fL Normal 6.2-12.0 [facility] Comment on above: Performed By: #### L 500.2500, L100.0100 ####[facility] [address] [place], [address] Platelets (Bld) [#/Vol] 385 10*3/uL Normal 150-450 [facility] Comment on above: Performed By: #### L 500.2500, L100.0100 ####[facility] [address] [place], [address] RBC (Bld) [#/Vol] 3.76 10*6/uL Low 4.2-5.[address] [facility] Comment on above: Performed By: #### L 500.2500, L100.0100 ####[facility] [address] [place], [address] RDW SD 41.2 fl Normal 35.1-43.9 [facility] Comment on above: Performed By: #### L 500.2500, L100.0100 ####[facility] [address] [place], [address] WBC (Bld) [#/Vol] 12.4 10*3/uL High 4.4-11.[address] [facility] Comment on above: Performed By: #### L 500.2500, L100.0100 ####[facility] [address] [place], [address] CT HEAD OR BRAIN W/O CONTRAS Ton 06-26-2024 CT HEAD OR BRAIN W/O CONTRAST ORIGINAL EXAMINATION: CT OF THE HEAD WITHOUT CONTRAST 06/26/2024 2:54 pm TECHNIQUE: CT of the head was performed without the administration of intravenous contrast. Automated exposure control, iterative reconstruction, and/or weight based adjustment of the mA/kV was utilized to reduce the radiation dose to as low as reasonably achievable. COMPARISON: None. HISTORY: ORDERING SYSTEM PROVIDED HISTORY: Reason for Exam: FALL ON ELIQUIS TODAY, -LOC, LAC TO BRIDGE OF NOSE, NO PRIOR NEURO HX INJURY FINDINGS: There is no acute intracranial hemorrhage, mass, mass effect or abnormal extra-axial fluid collection. There is no CT evidence of acute infarct. The density in the larger dural venous sinuses is grossly normal. Scattered parenchymal hypodensities in the cerebral white matter are nonspecific but statistically most consistent with mild chronic microvascular angiopathy. Atherosclerotic calcifications are present in the cavernous carotid arteries bilaterally. There is proportionate enlargement of the ventricular system and cortical sulci compatible with parenchymal volume loss. The skull base and calvarium demonstrate no abnormality. The paranasal sinuses are clear. Included mastoid air cells are clear. IMPRESSION: No intracranial hemorrhage. No mass effect Volume loss. 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 Interpreted by: Ellis White MD Preliminary Report By: Ellis White MD Electronically signed By Ellis White MD Dictated Date: 06/26/2024 3:16:57 PM Prelim Date: 06/26/2024 3:19:22 PM Sign Date: 06/26/2024 3:19:22 PM Ordering Provider: ZULEMA JURADO [facility] MAXILLOFACIAL W/O CONTRAST ORIGINAL EXAMINATION: CT OF THE FACE WITHOUT CONTRAST 06/26/2024 2:54 pm TECHNIQUE: CT of the face was performed without the administration of intravenous contrast. Multiplanar reformatted images are provided for review. Automated exposure control, iterative reconstruction, and/or weight based adjustment of the mA/kV was utilized to reduce the radiation dose to as low as reasonably achievable. COMPARISON: None HISTORY: ORDERING SYSTEM PROVIDED HISTORY: Reason for Exam: FALL ON ELIQUIS TODAY, -LOC, LAC TO BRIDGE OF NOSE, NO PRIOR NEURO HX INJURY FINDINGS: FACIAL BONES: The frontal sinuses, orbital agudelo, maxilla, pterygoid plates, zygomatic arches, hard palate, nasal bones and mandible are intact. The temporomandibular joints are aligned. ORBITAL CONTENTS: The globes appear intact. The extraocular muscles, optic nerve sheath complexes and lacrimal glands appear unremarkable. No retrobulbar hematoma or mass is seen. SINUSES: There is no evidence of acute sinusitis, such as air fluid level. The mastoid air cells are clear. SOFT TISSUES: No superficial facial soft tissue swelling is seen. IMPRESSION: No acute facial bone trauma. No displaced nasal bone fracture. Head CT reported separately Interpreted by: Ellis White MD Preliminary Report By: Ellis White MD Electronically signed By Ellis White MD Dictated Date: 06/26/2024 3:19:47 PM Prelim Date: 06/26/2024 3:23:38 PM Sign Date: 06/26/2024 3:23:38 PM Ordering Provider: ZULEMA JURADO [facility] MAIN CT SPINE CERVICAL W/O CONTRA Donal 06-26-2024 CT SPINE CERVICAL W/O CONTRAST ORIGINAL EXAMINATION: CT OF THE CERVICAL SPINE WITHOUT CONTRAST 06/26/2024 2:54 pm TECHNIQUE: CT of the cervical spine was performed without the administration of intravenous contrast. Multiplanar reformatted images are provided for review. Automated exposure control, iterative reconstruction, and/or weight based adjustment of the mA/kV was utilized to reduce the radiation dose to as low as reasonably achievable. COMPARISON: None. HISTORY: ORDERING SYSTEM PROVIDED HISTORY: Reason for Exam: FALL ON ELIQUIS TODAY, -LOC, LAC TO BRIDGE OF NOSE, NO PRIOR NEURO HX, STATES NO NECK COMPLAINTS INJURY FINDINGS: BONES/ALIGNMENT: No acute fracture. Vertebral body heights are maintained. Minimal anterolisthesis of C4 on C5 and C5 on C6. DEGENERATIVE CHANGES: Multilevel degenerative changes of the spine with varying degrees of disc height loss, osteophyte formation, facet arthropathy, and neuroforaminal stenosis, greatest at C4-C5. Partial fusion of the right C6-C7 facets. At least moderate spinal canal narrowing at C5-C6, eccentric to the left. SOFT TISSUES: There is no prevertebral soft tissue swelling. Additional: The visualized lung apices are unremarkable. Incidentally noted 2.4 cm right thyroid nodule. IMPRESSION: No acute fracture or traumatic malalignment of the cervical spine. I have personally reviewed the images of this examination and agree with the resident's findings and interpretation. Interpreted by: Ryan Dow Preliminary Report By: Hillary Hemphill Electronically signed By Ryan Dow Dictated Date: 06/26/2024 3:16:54 PM Prelim Date: 06/26/2024 3:22:55 PM Sign Date: 06/26/2024 3:58:00 PM Ordering Provider: ZULEMA JURADO Normal [facility] MAIN Internal Medicine Office Vis iton 06-23-2024 Internal Medicine Office Visit Normal [facility] TOYIN + Prot Electro 24 HR URo n 06-22-2024 M-SPIKE,U mg/24 TNP Normal . [facility] Comment on above: Order Comment: Speci men Comment: A duplicate report has been generateddue to demographicSpecimen Comment: updates. Performed By: #### L 3600.3920 ####[facility] [address] [place], [place], [id number] PROTEIN, U24 423 mg/24 hr High 30-150 [facility] Comment on above: Order Comment: Speci men Comment: A duplicate report has been generateddue to demographicSpecimen Comment: updates. Performed By: #### L 4440.3920 ####[facility] [address] [place], [place], [id number] Immunofixation Urineon 06-21 TOYIN Urine Comment Normal . [facility] Comment on above: Result Comment: No m onoclonality detected.Performed at: [address] [id number] Director: Brandin Moy PhD, Phone: [phone] Performed By: #### L 3600.4030 ####[facility] [address] [place], [place], [id number] Carcinoembryonic Antigenon 0 06-18-2024 CEA 7.0 ng/mL High 0.0-4.7 [facility] Comment on above: Result Comment: Nons mokers <3.9 Smokers <5.6[employer] Electrochemiluminescence Immunoassay(ECLIA)Values obtained with different assay methods or kitscannot be used interchangeably. Results cannot beinterpreted as absolute evidence of the presence orabsence of malignant disease.Performed at: [address] [id number] Director: Brandin Moy PhD, Phone: [phone] Performed By: #### L 501.0900, L3100.3450, L3130.0010, L3200.1200, L3200.1275, L3100.2300 ####[facility] [address] [place], [address] Immunofixation, Serumon 05-26 TOYIN RESULT,S Comment Normal . [facility] Comment on above: Result Comment: No m onoclonality detected. Performed By: #### L 501.0900, L3100.3450, L3130.0010, L3200.1200, L3200.1275, L3100.2300 ####[facility] [address] [place], [address] Immunoglobulins G/A/Mon 05-26 IMMUNOGLOB A QN 155 mg/dL Normal 64-422 [facility] Comment on above: Order Comment: Y Performed By: #### L 501.0900, L3100.3450, L3130.0010, L3200.1200, L3200.1275, L3100.2300 ####[facility] [address] [place], [address] IMMUNOGLOB G QN 788 mg/dL Normal 586-1602 [facility] Comment on above: Order Comment: Y Performed By: #### L 501.0900, L3100.3450, L3130.0010, L3200.1200, L3200.1275, L3100.2300 ####[facility] [address] [place], [address] IMMUNOGLOB M QN 79 mg/dL Normal 26-217 [facility] Comment on above: Order Comment: Y Performed By: #### L 501.0900, L3100.3450, L3130.0010, L3200.1200, L3200.1275, L3100.2300 ####[facility] [address] [place], [address] [place] Lambda Light Chainson 06-18-2024 FR KAPPA LT CHN 22.6 mg/L Abnormal 3.3-19.4 [facility] Comment on above: Performed By: #### L 501.0900, L3100.3450, L3130.0010, L3200.1200, L3200.1275, L3100.2300 ####[facility] [address] [place], [address] FR LAMBDA LT CH 23.5 mg/L Normal 5.7-26.3 [facility] Comment on above: Performed By: #### L 501.0900, L3100.3450, L3130.0010, L3200.1200, L3200.1275, L3100.2300 ####[facility] [address] [place], [address] KAPPA/LAMBDA % 0.96 Normal 0.26-1.65 [facility] Comment on above: Performed By: #### L 501.0900, L3100.3450, L3130.0010, L3200.1200, L3200.1275, L3100.2300 ####[facility] [address] [place], [address] Protein Electroph, Son 06-18 Albumin [Mass/Vol] 2.1 g/dL Low 2.9-4.4 [facility] Comment on above: Performed By: #### L 501.0900, L3100.3450, L3130.0010, L3200.1200, L3200.1275, L3100.2300 ####[facility] [address] [place], [address] Albumin/Globulin [Mass ratio] 0.7 {ratio} Normal 0.7-1.7 [facility] Comment on above: Performed By: #### L 501.0900, L3100.3450, L3130.0010, L3200.1200, L3200.1275, L3100.2300 ####[facility] [address] [place], [address] ALPHA-1 GLOBUL 0.3 g/dL Normal 0.0-0.4 [facility] Comment on above: Performed By: #### L 501.0900, L3100.3450, L3130.0010, L3200.1200, L3200.1275, L3100.2300 ####[facility] [address] [place], [address] ALPHA-2 GLOBUL 1.0 g/dL Normal 0.4-1.0 [facility] Comment on above: Performed By: #### L 501.0900, L3100.3450, L3130.0010, L3200.1200, L3200.1275, L3100.2300 ####[facility] [address] [place], [address] BETA GLOBULIN 0.8 g/dL Normal 0.7-1.3 [facility] Comment on above: Performed By: #### L 501.0900, L3100.3450, L3130.0010, L3200.1200, L3200.1275, L3100.2300 ####[facility] [address] [place], [address] GAMMA GLOBULIN 0.8 g/dL Normal 0.4-1.8 [facility] Comment on above: Performed By: #### L 501.0900, L3100.3450, L3130.0010, L3200.1200, L3200.1275, L3100.2300 ####[facility] [address] [place], [address] Globulin (S) [Mass/Vol] 2.9 g/dL Normal 2.2-3.[address] [facility] Comment on above: Performed By: #### L 501.0900, L3100.3450, L3130.0010, L3200.1200, L3200.1275, L3100.2300 ####[facility] [address] [place], [address] INTERPRETATION Comment Normal . [facility] Comment on above: Result Comment: Prot ein electrophoresis scan will follow via computer,mail, or superintendent police delivery. Performed By: #### L 501.0900, L3100.3450, L3130.0010, L3200.1200, L3200.1275, L3100.2300 ####[facility] [address] [place], [address] M-SPIKE Not Observed Normal Not Observed [facility] Comment on above: Performed By: #### L 501.0900, L3100.3450, L3130.0010, L3200.1200, L3200.1275, L3100.2300 ####[facility] [address] [place], [address] NOTE: Comment Normal . [facility] Comment on above: Result Comment: The SPE pattern reflects hypoalbuminemia. Evidence ofmonoclonal protein is not apparent. Performed By: #### L 501.0900, L3100.3450, L3130.0010, L3200.1200, L3200.1275, L3100.2300 ####[facility] [address] [place], [place], [id number] Protein [Mass/Vol] 5.0 g/dL Low 6.0-8.5 [facility] Comment on above: Performed By: #### L 501.0900, L3100.3450, L3130.0010, L3200.1200, L3200.1275, L3100.2300 ####[facility] [address] [place], [address] Anion gap in Serum or Plasma Ordered By: Curt Henderson on 06-17-2024 Anion gap [Moles/Vol] 10 mmol/L 5- [facility] BUN/creatinine ratioOrdered By: Curt Henderson on 06-17-2024 Urea nitrogen/Creatinine [Mass ratio] 14.2 mg/mg - [facility] Basic Metabolic Profile (BMP )on 06-17-2024 BUN/CRE 14.2 RATIO Normal - [facility] Comment on above: Performed By: #### L 500.2500 ####[facility] [address] [place], [address] Calcium [Mass/Vol] 8.8 mg/dL Normal 7.6-11.0 [facility] Comment on above: Performed By: #### L 500.2500 ####[facility] [address] [place], [address] Chloride [Moles/Vol] 102 mmol/L Normal 98-108 [facility] Comment on above: Performed By: #### L 500.2500 ####[facility] [address] [place], [address] CO2 [Moles/Vol] 27.3 mmol/L Normal 21.0-32.0 [facility] Comment on above: Performed By: #### L 500.2500 ####[facility] [address] [place], [address] Creatinine [Mass/Vol] 0.49 mg/dL Low 0.70-1.20 [facility] Comment on above: Performed By: #### L 500.2500 ####[facility] [address] [place], [address] ECRCL 56.51 ml/min Normal 50-250 [facility] Comment on above: Performed By: #### L 500.2500 ####[facility] [address] [place], [address] GAP 10 Normal - [facility] Comment on above: Performed By: #### L 500.2500 ####[facility] [address] [place], [address] GFR/1.73 sq M.predicted among non-blacks MDRD (S/P/Bld) [Vol rate/Area] 96 mL/min/{1.73_m2} Normal >60 [facility] Comment on above: Result Comment: mL/m in/1.73m2 CKD-EPI Creatinine Equation (2020) Performed By: #### L 500.2500 ####[facility] [address] [place], [address] Glucose [Mass/Vol] 123 mg/dL High 70-99 [facility] Comment on above: Performed By: #### L 500.2500 ####[facility] [address] [place], [address] Potassium [Moles/Vol] 3.2 mmol/L Low 3.3-5.1 [facility] Comment on above: Performed By: #### L 500.2500 ####[facility] [address] [place], [address] Sodium [Moles/Vol] 140 mmol/L Normal 133-145 [facility] Comment on above: Performed By: #### L 500.2500 ####[facility] [address] [place], [address] Urea nitrogen [Mass/Vol] 7 mg/dL Normal 4-19 [facility] Comment on above: Performed By: #### L 500.2500 ####[facility] [address] [place], [address] Carbon dioxide, total [Moles /volume] in Central venous bloodOrdered By: Curt Henderson on 06-17-2024 CO2 [Moles/Vol] 27.3 mmol/L 21.0-32.0 [facility] Chloride assayOrdered By: Joyce Henderson on 06-17-2024 Chloride [Moles/Vol] 102 mmol/L 98-108 [facility] Discharge Instructionon - Discharge Instruction Normal [facility] Estimation of creatinine audi aranceOrdered By: Curt Henderson on 06-17-2024 Estimated Creatinine Clearance Calc 56.51 ml/min 50-250 [facility] GFR/1.73 sq M.predicted randall g non-blacks MDRD (S/P/Bld) [Vol rate/Area]Ordered By: Curt Henderson on 06-17-2024 Estimated GFR (MDRD) Non-Af Amer 96 >60 [facility] Comment on above: mL/min/1.73m2 CKD-EP I Creatinine Equation (2020) Glomerular filtration rate ( GFR) estimation/1.73 sq m using serum, plasma, or whole bOrdered By: Curt Henderson on 06-17-2024 GFR/1.73 sq M.predicted among non-blacks MDRD (S/P/Bld) [Vol rate/Area] 96 mL/min/{1.73_m2} >60 [facility] Comment on above: mL/min/1.73m2 CKD-EP I Creatinine Equation (2020) Potassium (Unsp spec) [Mass/ Vol]Ordered By: Curt Henderson on 06-17-2024 Potassium [Moles/Vol] 3.2 mmol/L Low 3.3-5.1 [facility] Potassium measurement (mass/ volume)Ordered By: Curt Henderson on 06-17-2024 Potassium (Unsp spec) [Mass/Vol] 3.2 mmol/L Low 3.3-5.1 [facility] Serum Creatinine AND GFRon 0 06-17-2024 Creatinine [Mass/Vol] 0.54 mg/dL Low 0.70-1.20 [facility] Comment on above: Order Comment: Comme nts: PLEASE DO ALONG WITH THE VANC TROUGH Performed By: #### L 501.1105 ####[facility] [address] [place], [place], [id number] ECRCL 56.51 ml/min Normal 50-250 [facility] Comment on above: Order Comment: Comme nts: PLEASE DO ALONG WITH THE VANC TROUGH Performed By: #### L 501.1105 ####[facility] [address] [place], [place], [address] GFR/1.73 sq M.predicted among non-blacks MDRD (S/P/Bld) [Vol rate/Area] 94 mL/min/{1.73_m2} Normal >60 [facility] Comment on above: Order Comment: Comme nts: PLEASE DO ALONG WITH THE VANC TROUGH Result Comment: mL/m in/1.73m2 CKD-EPI Creatinine Equation (2020) Performed By: #### L 501.1105 ####[facility] [address] [facility] [place], [place], [address] Serum creatinine measurement (mass/volume)Ordered By: Curt Henderson on 06-17-2024 Creatinine [Mass/Vol] 0.49 mg/dL Low 0.70-1.20 [facility] Serum glucose measurement (m ass/volume)Ordered By: Curt Henderson on 06-17-2024 Glucose [Mass/Vol] 123 mg/dL High 70-99 [facility] Serum or plasma calcium mackenzie urement (mass/volume)Ordered By: Curt Henderson on 06-17-2024 Calcium [Mass/Vol] 8.8 mg/dL 7.6-11.0 [facility] Serum or plasma urea nitroge n measurement (mass/volume)Ordered By: Curt Henderson on 06-17-2024 Urea nitrogen [Mass/Vol] 7 mg/dL 4-19 [facility] Sodium levelOrdered By: Edil Henderson on 06-17-2024 Sodium [Moles/Vol] 140 mmol/L 133-145 [facility] Trough vancomycin levelOrder ed By: Curt Henderson on 06-17-2024 Vancomycin trough [Mass/Vol] 15.7 ug/mL High 5.0-15.0 [facility] Comment on above: Recommended goal tro ugh ranges are generally 10-15 mcg/ml for less severe/complicated infections such as cellulitis or UTI and 15-20 mcg/ml for more severe/complicated infections such as bacteremia/sepsis, osteomyelitis, pneumonia or meningitis. Goal trough ranges should take into account indication, patient-specific factors and organism ASAD.VANCOMYCIN STANDARED DRUG THERAPY TROUGH LEVEL: 5.0 - 15.0 mg/L VANCOMYCIN HIGH INTENSITY THERAPY TROUGH LEVEL: 15.0 - 20.0 mg/L High Intensity therapy recommended for serious lifethreatening infections include:- Qsspkysppn-Yilnermwetao-Ikjracuio (Ventilator/Healtcare Associated)-Sepsis PLEASE CONTACT PHARMACY SERVICES (#[id number]) FOR INTERPRETATIONOF RESULTS. Vancomycin trough [Mass/Vol] Ordered By: Curt Henderson on 06-17-2024 Vancomycin Level Trough 15.7 ug/mL High 5.0-15.0 [facility] Comment on above: Recommended goal tro ugh ranges are generally 10-15 mcg/ml for less severe/complicated infections such as cellulitis or UTI and 15-20 mcg/ml for more severe/complicated infections such as bacteremia/sepsis, osteomyelitis, pneumonia or meningitis. Goal trough ranges should take into account indication, patient-specific factors and organism ASAD.VANCOMYCIN STANDARED DRUG THERAPY TROUGH LEVEL: 5.0 - 15.0 mg/L VANCOMYCIN HIGH INTENSITY THERAPY TROUGH LEVEL: 15.0 - 20.0 mg/L High Intensity therapy recommended for serious lifethreatening infections include:- Vsiyqoilbp-Xihejuwimdzq-Mwteshorr (Ventilator/Healtcare Associated)-Sepsis PLEASE CONTACT PHARMACY SERVICES (#[id number]) FOR INTERPRETATIONOF RESULTS. Vancomycin, Trough Levelon 0 06-17-2024 VANCO, TROUGH 15.7 ug/mL High 5.0-15.0 [facility] Comment on above: Order Comment: 0300 Result Comment: Jose L mmended goal trough ranges are generally 10-15 mcg/mlfor less severe/complicated infections such as cellulitisor UTI and 15-20 mcg/ml for more severe/complicatedinfections such as bacteremia/sepsis, osteomyelitis,pneumonia or meningitis. Goal trough ranges should takeinto account indication, patient-specific factors andorganism ASAD.VANCOMYCIN STANDARED DRUG THERAPY TROUGH LEVEL: 5.0 - 15.0 mg/LVANCOMYCIN HIGH INTENSITY THERAPY TROUGH LEVEL: 15.0 - 20.0 mg/LHigh Intensity therapy recommended for serious lifethreatening infections include:- Wigotucegl-Mvgdcqgsjxsy-Essghzype (Ventilator/Healtcare Associated)-SepsisPLEASE CONTACT PHARMACY SERVICES (#0306) FOR INTERPRETATIONOF RESULTS. Performed By: #### L 501.8820 ####[facility] [address] [place], [address] 24 hour urine albumin/total protein ratio by electrophoresis (mass fraction)Ordered By: Curt Henderson on 06-15-2024 Albumin Elph (24H U) [Mass fraction] 48.1 % . [facility] 24 hour urine alpha 1 globul in/total protein ratio by electrophoresis (mass fraction)Ordered By: Curt Henderson on 06-15-2024 Alpha 1 globulin Elph (24H U) [Mass fraction] 7.4 % . [facility] 24 hour urine alpha 2 globul in/total protein ratio by electrophoresis (mass fraction)Ordered By: Curt Henderson on 06-15-2024 Alpha 2 globulin Elph (24H U) [Mass fraction] 15.7 % . [facility] 24 hour urine monoclonal pro tein measurement by electrophoresis (mass/time)Ordered By: Curt Henderson on 06-15-2024 Protein.monoclonal Elph (24H U) [Mass/Time] TNP [facility] Comment on above: Test not performed 24 hour urine protein measur ement (mass/time)Ordered By: Curt Henderson on 06-15-2024 Protein (24H U) [Mass/Time] 423 mg/24 hr High 30-150 [facility] No Panel InformationOrdered By: Curt Henderson on 06-15-2024 Urine Immunofixation PEP Note Comment . [facility] Comment on above: Protein electrophore sis scan will follow via computer,mail, or superintendent police delivery. Comment . [facility] Protein+Creatinine Ratio,Uri neon 06-15-2024 PROT:CRE RATIO 426 mg/g CRE High 0-200 [facility] Comment on above: Performed By: #### L 501.0900, L3100.3450, L3130.0010, L3200.1200, L3200.1275, L3100.2300 ####[facility] [address] [place], [place], [id number] Protein (U) [Mass/Vol] 32.6 mg/dL High 0.0-12.0 [facility] Comment on above: Performed By: #### L 501.0900, L3100.3450, L3130.0010, L3200.1200, L3200.1275, L3100.2300 ####[facility] [address] [place], [address] UR CREAT 76.60 mg/dL Normal 28.00-217. 00 [facility] Comment on above: Performed By: #### L 501.0900, L3100.3450, L3130.0010, L3200.1200, L3200.1275, L3100.2300 ####[facility] [address] [place], [address] Urine beta globulin measurem ent by electrophoresis (mass/volume)Ordered By: Curt Henderson on 06-15-2024 Beta globulin Elph (U) [Mass/Vol] 16.3 % . [facility] Urine gamma globulin measure ment by electrophoresis (mass/volume)Ordered By: Curt Henderson on 06-15-2024 Gamma globulin Elph (U) [Mass/Vol] 12.5 % . [facility] Urine monoclonal protein/tot al protein mass ratio by electrophoresisOrdered By: Curt Henderson on 06-15-2024 Protein.monoclonal Elph (U) [Mass fraction] Not Observed % Not Observed [facility] Urine protein measurement (m ass/volume)Ordered By: Curt Henderson on 06-15-2024 Protein (U) [Mass/Vol] 30.2 mg/dL Not Estab. [facility] Vancomycin, Trough Levelon 0 06-15-2024 VANCO, TROUGH 6.3 ug/mL Normal 5.0-15.0 [facility] Comment on above: Order Comment: Comme nts: Trough to be drawn 30 mins prior to scheduled [id number] Result Comment: Jose L mmended goal trough ranges are generally 10-15 mcg/mlfor less severe/complicated infections such as cellulitisor UTI and 15-20 mcg/ml for more severe/complicatedinfections such as bacteremia/sepsis, osteomyelitis,pneumonia or meningitis. Goal trough ranges should takeinto account indication, patient-specific factors andorganism ASAD.VANCOMYCIN STANDARED DRUG THERAPY TROUGH LEVEL: 5.0 - 15.0 mg/LVANCOMYCIN HIGH INTENSITY THERAPY TROUGH LEVEL: 15.0 - 20.0 mg/LHigh Intensity therapy recommended for serious lifethreatening infections include:- Tbrvjueser-Imeitdjhkkyz-Sicokmjrf (Ventilator/Healtcare Associated)-SepsisPLEASE CONTACT PHARMACY SERVICES (#1600) FOR INTERPRETATIONOF RESULTS. Performed By: #### L 501.8820 ####[facility] [address] [place], [address] .Urinalysis Microscopic (AO) on 06-14-2024 UA Yeast Trace Abnormal [facility] Comment on above: Performed By: #### U A, UAMICAO #### [facility] [address] [place], [place] [address] Basic Metabolic Profile (BMP )on 06-14-2024 BUN/CRE 13.2 RATIO Normal 10-20 [facility] Comment on above: Performed By: #### L 500.2500, L100.0500 ####[facility] [address] [place], [address] Calcium [Mass/Vol] 8.7 mg/dL Normal 7.6-11.0 [facility] Comment on above: Performed By: #### L 500.2500, L100.0500 ####[facility] [address] [place], [address] Chloride [Moles/Vol] 104 mmol/L Normal 98-108 [facility] Comment on above: Performed By: #### L 500.2500, L100.0500 ####[facility] [address] [place], [address] CO2 [Moles/Vol] 25.6 mmol/L Normal 21.0-32.0 [facility] Comment on above: Performed By: #### L 500.2500, L100.0500 ####[facility] [address] [place], [address] Creatinine [Mass/Vol] 0.53 mg/dL Low 0.70-1.20 [facility] Comment on above: Performed By: #### L 500.2500, L100.0500 ####[facility] [address] [place], [address] ECRCL 56.51 ml/min Normal 50-250 [facility] Comment on above: Performed By: #### L 500.2500, L100.0500 ####[facility] [address], [address] GAP 10 Normal 5-15 [facility] Comment on above: Performed By: #### L 500.2500, L100.0500 ####[facility] [address] [place], [address] GFR/1.73 sq M.predicted among non-blacks MDRD (S/P/Bld) [Vol rate/Area] 94 mL/min/{1.73_m2} Normal >60 [facility] Comment on above: Result Comment: mL/m in/1.73m2 CKD-EPI Creatinine Equation (2020) Performed By: #### L 500.2500, L100.0500 ####[facility] [address] [place], [address] Glucose [Mass/Vol] 131 mg/dL High 70-99 [facility] Comment on above: Performed By: #### L 500.2500, L100.0500 ####[facility] [address] [place], [address] Potassium [Moles/Vol] 3.0 mmol/L Low 3.3-5.1 [facility] Comment on above: Performed By: #### L 500.2500, L100.0500 ####[facility] [address] [place], [address] Sodium [Moles/Vol] 139 mmol/L Normal 133-145 [facility] Comment on above: Performed By: #### L 500.2500, L100.0500 ####[facility] [address] [place], [address] Urea nitrogen [Mass/Vol] 7 mg/dL Normal 4-19 [facility] Comment on above: Performed By: #### L 500.2500, L100.0500 ####[facility] [address] [place], [address] CBC-Complete Blood Cnt No Di ffon 06-14-2024 Erythrocyte distribution width (RBC) [Ratio] 12.8 % Normal 11.6-14.6 [facility] Comment on above: Performed By: #### L 500.2500, L100.0500 ####[facility] [address] [place], [address] Hematocrit (Bld) [Volume fraction] 33.3 % Low 37-47 [facility] Comment on above: Performed By: #### L 500.2500, L100.0500 ####[facility] [address] [place], [address] Hemoglobin (Bld) [Mass/Vol] 11.2 g/dL Low 12.0-15.0 [facility] Comment on above: Performed By: #### L 500.2500, L100.0500 ####[facility] [address] [place], [address] MCH (RBC) [Entitic mass] 28.4 pg Normal 27.0-32.0 [facility] Comment on above: Performed By: #### L 500.2500, L100.0500 ####[facility] [address] [place], [address] MCHC (RBC) [Mass/Vol] 33.6 g/dL Normal 32-36 [facility] Comment on above: Performed By: #### L 500.2500, L100.0500 ####[facility] [address] [place], [address] MCV (RBC) [Entitic vol] 84.5 fL Normal 81-[address] [facility] Comment on above: Performed By: #### L 500.2500, L100.0500 ####[facility] [address] [place], [address] Platelet mean volume (Bld) [Entitic vol] 9.9 fL Normal 6.2-12.0 [facility] Comment on above: Performed By: #### L 500.2500, L100.0500 ####[facility] [address] [place], [address] Platelets (Bld) [#/Vol] 344 10*3/uL Normal 150-450 [facility] Comment on above: Performed By: #### L 500.2500, L100.0500 ####[facility] [address] [place], [address] RBC (Bld) [#/Vol] 3.94 10*6/uL Low 4.2-5.[address] [facility] Comment on above: Performed By: #### L 500.2500, L100.0500 ####[facility] [address] [place], [address] RDW SD 39.0 fl Normal 35.1-43.9 [facility] Comment on above: Performed By: #### L 500.2500, L100.0500 ####[facility] [address] [place], [address] WBC (Bld) [#/Vol] 17.4 10*3/uL High 4.4-11.[address] [facility] Comment on above: Performed By: #### L 500.2500, L100.0500 ####[facility] [address] [place], [address] Culture, Blood (WB)on 2024 CUB Blood cultures x2, f rom two different sites No growth in 5 days. Normal [facility] Comment on above: Performed By: #### L 300.3900, M200.1000, L300.4310 ####[facility] [address] [place], [address] Erythrocyte distribution wid th (RBC) [Ratio]Ordered By: Art Rivas on 06-14-2024 Erythrocyte distribution width (RBC) [Entitic vol] 39.0 fL 35.1-43.9 [facility] Erythrocyte distribution wid th ratioOrdered By: Art Rivas on 06-14-2024 Erythrocyte distribution width (RBC) [Ratio] 12.8 % 11.6-14.6 [facility] Erythrocyte distribution wid th standard deviationOrdered By: Art Rivas on 06-14-2024 Erythrocyte distribution width (RBC) [Ratio] 39.0 fl 35.1-43.9 [facility] Hematocrit Auto (Bld) [Volum e fraction]Ordered By: Art Rivas on 06-14-2024 Hematocrit (Bld) [Volume fraction] 33.3 % Low 37-47 [facility] Hemoglobin measurementOrdere d By: Art Rivas on 06-14-2024 Hemoglobin (Bld) [Mass/Vol] 11.2 g/dL Low 12.0-15.0 [facility] MCV (mean corpuscular volume ) determinationOrdered By: Art Rivas on 06-14-2024 MCV (RBC) [Entitic vol] 84.5 fL 81-[address] [facility] MR/CON.PCM.GIon 06-14-2024 MR/CON.PCM.GI Normal [facility] Mean corpuscular hemoglobin (MCH) determinationOrdered By: Art Rivas on 06-14-2024 MCH (RBC) [Entitic mass] 28.4 pg 27.0-32.0 [facility] Mean corpuscular hemoglobin concentration (MCHC) determinationOrdered By: Art Rivas on 06-14-2024 MCHC (RBC) [Mass/Vol] 33.6 g/dL 32-36 [facility] Mean platelet volume determi nationOrdered By: Art Rivas on 06-14-2024 Platelet mean volume (Bld) [Entitic vol] 9.9 fL 6.2-12.0 [facility] Platelet countOrdered By: Lee Rivas on 06-14-2024 Platelets (Bld) [#/Vol] 344 10*3/uL 150-450 [facility] RBC Auto (Bld) [#/Vol]Ordere d By: Art Rivas on 06-14-2024 RBC (Bld) [#/Vol] 3.94 10*6/uL Low 4.2-5.[address] [facility] Urine Cultureon 06-14-2024 URC Normal [facility] Comment on above: Performed By: #### M 100.2200 ####[facility] [address] [place], [place], [id number] White blood cell (WBC) count Ordered By: Art Rivas on 06-14-2024 WBC (Bld) [#/Vol] 17.4 10*3/uL High 4.4-11.[address] [facility] Absolute lymphocyte countOrd ered By: Rodriguez Braxton on 06-13-2024 Lymphocytes Auto (Unsp spec) [#/Vol] 0.72 10*3/uL Low 0.83-4.51 [facility] Absolute neutrophil countOrd ered By: Rodriguez Braxton on 06-13-2024 Neutrophils (Bld) [#/Vol] 14.7 10*3/uL High 2.0-7.7 [facility] Albumin Elph [Mass/Vol]Order ed By: Art Rivas on 06-13-2024 Albumin [Mass/Vol] 2.1 g/dL Low 2.9-4.4 [facility] Anion gap in Serum or Plasma Ordered By: Rodriguez Braxton on 06-13-2024 Anion gap [Moles/Vol] 13 mmol/L 5-15 [facility] Automated lymphocyte count a s percentage of total leukocytesOrdered By: Rodriguez Braxton on 06-13-2024 Lymphocytes/100 WBC Auto (Unsp spec) 4.3 % Low 19-41 [facility] BUN/creatinine ratioOrdered By: Rodriguez Braxton on 06-13-2024 Urea nitrogen/Creatinine [Mass ratio] 21.6 mg/mg High 10-20 [facility] Basic Metabolic Profile (BMP )on 06-13-2024 BUN/CRE 21.6 RATIO High 12-13 [facility] Comment on above: Performed By: #### L 100.0100, L501.5200, L500.2500 ####[facility] [address] [place], [address] Calcium [Mass/Vol] 9.3 mg/dL Normal 7.6-11.0 [facility] Comment on above: Performed By: #### L 100.0100, L501.5200, L500.2500 ####[facility] [address] [place], [address] Chloride [Moles/Vol] 96 mmol/L Low 98-108 [facility] Comment on above: Performed By: #### L 100.0100, L501.5200, L500.2500 ####[facility] [address] [place], [address] CO2 [Moles/Vol] 24.1 mmol/L Normal 21.0-32.0 [facility] Comment on above: Performed By: #### L 100.0100, L501.5200, L500.2500 ####[facility] [address] [place], [address] Creatinine [Mass/Vol] 0.61 mg/dL Low 0.70-1.20 [facility] Comment on above: Performed By: #### L 100.0100, L501.5200, L500.2500 ####[facility] [address] [place], [address] GAP 13 Normal 5-15 [facility] Comment on above: Performed By: #### L 100.0100, L501.5200, L500.2500 ####[facility] [address] [place], [address] GFR/1.73 sq M.predicted among non-blacks MDRD (S/P/Bld) [Vol rate/Area] 91 mL/min/{1.73_m2} Normal >60 [facility] Comment on above: Result Comment: mL/m in/1.73m2 CKD-EPI Creatinine Equation (2020) Performed By: #### L 100.0100, L501.5200, L500.2500 ####[facility] [address] [place], [address] Glucose [Mass/Vol] 173 mg/dL High 70-99 [facility] Comment on above: Performed By: #### L 100.0100, L501.5200, L500.2500 ####[facility] [address] [place], [address] Potassium [Moles/Vol] 3.3 mmol/L Normal 3.3-5.1 [facility] Comment on above: Result Comment: Hemo lysis present, Results??could be affected.?? Performed By: #### L 100.0100, L501.5200, L500.2500 ####[facility] [address] [place], [address] Sodium [Moles/Vol] 133 mmol/L Normal 133-145 [facility] Comment on above: Performed By: #### L 100.0100, L501.5200, L500.2500 ####[facility] [address] [place], [address] Urea nitrogen [Mass/Vol] 13 mg/dL Normal 4-19 [facility] Comment on above: Performed By: #### L 100.0100, L501.5200, L500.2500 ####[facility] [address] [place], [address] Basophil percentageOrdered B y: Rodriguez Braxton on 06-13-2024 Basophils/100 WBC (Bld) 0.3 % 0-[address] [facility] CBC W/Diff, Automatedon 05-26 Absolute Lymph 0.72 X10 3/uL Low 0.83-4.51 [facility] Comment on above: Performed By: #### L 100.0100, L501.5200, L500.2500 ####[facility] [address] [place], [address] Absolute Neut 14.7 X10 3/uL High 2.0-7.7 [facility] Comment on above: Performed By: #### L 100.0100, L501.5200, L500.2500 ####[facility] [address] [place], [address] Basophils/100 WBC (Bld) 0.3 % Normal 0-[address] [facility] Comment on above: Performed By: #### L 100.0100, L501.5200, L500.2500 ####[facility] [address] [place], [address] Eosinophils/100 WBC (Bld) 0.4 % Normal 0-5 [facility] Comment on above: Performed By: #### L 100.0100, L501.5200, L500.2500 ####[facility] [address] [place], [address] Erythrocyte distribution width (RBC) [Ratio] 12.9 % Normal 11.6-14.6 [facility] Comment on above: Performed By: #### L 100.0100, L501.5200, L500.2500 ####[facility] [address] [place], [address] Hematocrit (Bld) [Volume fraction] 37.5 % Normal 37-47 [facility] Comment on above: Performed By: #### L 100.0100, L501.5200, L500.2500 ####[facility] [address] [place], [address] Hemoglobin (Bld) [Mass/Vol] 12.9 g/dL Normal 12.0-15.0 [facility] Comment on above: Performed By: #### L 100.0100, L501.5200, L500.2500 ####[facility] [address] [place], [address] IG% 0.500 Normal 0.0-0.9 [facility] Comment on above: Result Comment: IG% - Immature Granulocytes (promyelocytes, myelocytes andmetamyelocytes) > 1% indicates that a LEFT SHIFT is Present. Performed By: #### L 100.0100, L501.5200, L500.2500 ####[facility] [address] [place], [address] Lymphocytes/100 WBC (Bld) 4.3 % Low 19-41 [facility] Comment on above: Performed By: #### L 100.0100, L501.5200, L500.2500 ####[facility] [address] [place], [address] MCH (RBC) [Entitic mass] 28.7 pg Normal 27.0-32.0 [facility] Comment on above: Performed By: #### L 100.0100, L501.5200, L500.2500 ####[facility] [address] [place], [address] MCHC (RBC) [Mass/Vol] 34.4 g/dL Normal 32-36 [facility] Comment on above: Performed By: #### L 100.0100, L501.5200, L500.2500 ####[facility] [address] [place], [address] MCV (RBC) [Entitic vol] 83.3 fL Normal 81-99 [facility] Comment on above: Performed By: #### L 100.0100, L501.5200, L500.2500 ####[facility] [address] [place], [address] Monocytes/100 WBC (Bld) 7.0 % Normal 0-[address] [facility] Comment on above: Performed By: #### L 100.0100, L501.5200, L500.2500 ####[facility] [address] [place], [address] Neutrophils/100 WBC (Bld) 87.5 % High 47-70 [facility] Comment on above: Performed By: #### L 100.0100, L501.5200, L500.2500 ####[facility] [address] [place], [address] Nucleated RBC (Bld) [#/Vol] 0 10*3/uL Normal 0-5 [facility] Comment on above: Performed By: #### L 100.0100, L501.5200, L500.2500 ####[facility] [address] [place], [address] Platelet mean volume (Bld) [Entitic vol] 10.0 fL Normal 6.2-12.0 [facility] Comment on above: Performed By: #### L 100.0100, L501.5200, L500.2500 ####[facility] [address] [place], [address] Platelets (Bld) [#/Vol] 368 10*3/uL Normal 150-450 [facility] Comment on above: Performed By: #### L 100.0100, L501.5200, L500.2500 ####[facility] [address] [place], [address] RBC (Bld) [#/Vol] 4.50 10*6/uL Normal 4.2-5.[address] [facility] Comment on above: Performed By: #### L 100.0100, L501.5200, L500.2500 ####[facility] [address] [place], [address] RDW SD 37.9 fl Normal 35.1-43.9 [facility] Comment on above: Performed By: #### L 100.0100, L501.5200, L500.2500 ####[facility] [address] [place], [address] WBC (Bld) [#/Vol] 16.7 10*3/uL High 4.4-11.[address] [facility] Comment on above: Performed By: #### L 100.0100, L501.5200, L500.2500 ####[facility] [address] [place], [address] Carbon dioxide, total [Moles /volume] in Central venous bloodOrdered By: Rodriguez Braxton on 06-13-2024 CO2 [Moles/Vol] 24.1 mmol/L 21.0-32.0 [facility] Chloride assayOrdered By: Yoli Braxton on 06-13-2024 Chloride [Moles/Vol] 96 mmol/L Low 98-108 [facility] Creatinine Unsp time (U) [Ma ss/Vol]Ordered By: Art Rivas on 06-13-2024 Creatinine (U) [Mass/Vol] 76.60 mg/dL 28.00-217. 00 [facility] Emergency Department Summary on 06-13-2024 Emergency Department Summary Normal [facility] Eosinophil percentageOrdered By: Rodriguez Braxton on 06-13-2024 Eosinophils/100 WBC (Bld) 0.4 % 0-5 [facility] Erythrocyte distribution wid th (RBC) [Ratio]Ordered By: Rodriguez Braxton on 06-13-2024 Erythrocyte distribution width (RBC) [Entitic vol] 37.9 fL 35.1-43.9 [facility] Erythrocyte distribution wid th ratioOrdered By: Rodriguez Braxton on 06-13-2024 Erythrocyte distribution width (RBC) [Ratio] 12.9 % 11.6-14.6 [facility] GFR/1.73 sq M.predicted randall g non-blacks MDRD (S/P/Bld) [Vol rate/Area]Ordered By: Rodriguez Braxton on 06-13-2024 Estimated GFR (MDRD) Non-Af Amer 91 >60 [facility] Comment on above: mL/min/1.73m2 CKD-EP I Creatinine Equation (2020) H AND P Exam - [place] 06-13-2024 H&P Exam - Hospitalist Normal [facility] Hematocrit Auto (Bld) [Volum e fraction]Ordered By: Rodriguez Braxton on 06-13-2024 Hematocrit (Bld) [Volume fraction] 37.5 % 37-47 [facility] Hemoglobin measurementOrdere d By: Rodriguez Braxton on 06-13-2024 Hemoglobin (Bld) [Mass/Vol] 12.9 g/dL 12.0-15.0 [facility] Immature granulocytes/100 WB C Auto (Bld)Ordered By: Rodriguez Braxton on 06-13-2024 Immature granulocytes/100 WBC (Bld) 0.500 % 0.0-0.9 [facility] Comment on above: IG% - Immature Granu locytes (promyelocytes, myelocytes and metamyelocytes) > 1% indicates that a LEFT SHIFT is Present. Lymphocytes Auto (Unsp spec) [#/Vol]Ordered By: Rodriguez Braxton on 06-13-2024 Lymphocytes (Bld) [#/Vol] 0.72 10*3/uL Low 0.83-4.51 [facility] Lymphocytes/100 WBC Auto (Un sp spec)Ordered By: Rodriguez Braxton on 06-13-2024 Lymphocytes/100 WBC (Bld) 4.3 % Low 19-41 [facility] MCV (mean corpuscular volume ) determinationOrdered By: Rodriguez Braxton on 06-13-2024 MCV (RBC) [Entitic vol] 83.3 fL 81-[address] [facility] Magnesiumon 06-13-2024 Magnesium [Mass/Vol] 1.7 mg/dL Normal 1.5-2.2 [facility] Comment on above: Performed By: #### L 100.0100, L501.5200, L500.2500 ####[facility] [address] [facility] [place], [address] Magnesium (Unsp spec) [Mass/ Vol]Ordered By: Rodriguez Braxton on 06-13-2024 Magnesium [Mass/Vol] 1.7 mg/dL 1.5-2.2 [facility] Magnesium measurement (mass/ volume)Ordered By: Rodriguez Braxton on 06-13-2024 Magnesium (Unsp spec) [Mass/Vol] 1.7 mg/dL 1.5-2.2 [facility] Mean corpuscular hemoglobin (MCH) determinationOrdered By: Rodriguez Braxton on 06-13-2024 MCH (RBC) [Entitic mass] 28.7 pg 27.0-32.0 [facility] Mean corpuscular hemoglobin concentration (MCHC) determinationOrdered By: Rodriguez Braxton on 06-13-2024 MCHC (RBC) [Mass/Vol] 34.4 g/dL 32-36 [facility] Mean platelet volume determi nationOrdered By: Rodriguez Braxton on 06-13-2024 Platelet mean volume (Bld) [Entitic vol] 10.0 fL 6.2-12.0 [facility] Monocyte percentageOrdered B y: Rodriguez Braxton on 06-13-2024 Monocytes/100 WBC (Bld) 7.0 % 0-[address] [facility] Neutrophil percentageOrdered By: Rodriguez Braxton on 06-13-2024 Neutrophils/100 WBC (Bld) 87.5 % High 47-70 [facility] No Panel InformationOrdered By: Art Rivas on 06-13-2024 Addendum Document Comment . [facility] Comment on above: The SPE pattern refl ects hypoalbuminemia. Evidence ofmonoclonal protein is not apparent. Nucleated red blood cell per centageOrdered By: Rodriguez Braxton on 06-13-2024 Nucleated RBC/100 WBC (Bld) [Ratio] 0 % 0-5 [facility] Platelet countOrdered By: Yoli Braxton on 06-13-2024 Platelets (Bld) [#/Vol] 368 10*3/uL 150-450 [facility] Potassium (Unsp spec) [Mass/ Vol]Ordered By: Rodriguez Braxton on 06-13-2024 Potassium [Moles/Vol] 3.3 mmol/L 3.3-5.1 [facility] Comment on above: Hemolysis present, R esults could be affected. Protein Fractions Elph [Inte rp]Ordered By: Art Rivas on 06-13-2024 Protein Fractions [Interp] Comment . [facility] Comment on above: Protein electrophore sis scan will follow via computer,mail, or superintendent police delivery. Protein/Creatinine (U) [Mass ratio]Ordered By: Art Rivas on 06-13-2024 Urine Protein/Creatinine Ratio 426 mg/g CRE High 0-200 [facility] RBC Auto (Bld) [#/Vol]Ordere d By: Rodriguez Braxton on 06-13-2024 RBC (Bld) [#/Vol] 4.50 10*6/uL 4.2-5.[address] [facility] Random urine creatinine mackenzie urement (mass/volume)Ordered By: Art Rivas on 06-13-2024 Creatinine Unsp time (U) [Mass/Vol] 76.60 mg/dL 28.00-217. 00 [facility] Serum albumin to globulin ra manju by protein electrophoresisOrdered By: Art Rivas on 06-13-2024 Albumin/Globulin Elph [Mass ratio] 0.7 0.7-1.7 [facility] Serum creatinine measurement (mass/volume)Ordered By: Rodriguez Braxton on 06-13-2024 Creatinine [Mass/Vol] 0.61 mg/dL Low 0.70-1.20 [facility] Serum globulin measurement ( mass/volume)Ordered By: Art Rivas on 06-13-2024 Globulin (S) [Mass/Vol] 2.9 g/dL 2.2-3.[address] [facility] Serum glucose measurement (m ass/volume)Ordered By: Rodriguez Braxton on 06-13-2024 Glucose [Mass/Vol] 173 mg/dL High 70-99 [facility] Serum immunoglobulin kappa l ight chains/immunoglobulin lambda light chains mass ratioOrdered By: Art Rivas on 06-13-2024 Immunoglobulin light chains.kappa/Immunoglobu usama light chains.lambda (S) [Mass ratio] 0.96 0.26-1.65 [facility] Serum or plasma IgA measurem ent (mass/volume)Ordered By: Art Rivas on 06-13-2024 IgA [Mass/Vol] 155 mg/dL 64-422 [facility] Serum or plasma IgG measurem ent (mass/volume)Ordered By: Art Rivas on 06-13-2024 IgG [Mass/Vol] 788 mg/dL [phone] [facility] Serum or plasma beta globuli n measurement by electrophoresis (mass/volume)Ordered By: Art Rivas on 06-13-2024 Beta globulin Elph [Mass/Vol] 0.8 g/dL 0.7-1.3 [facility] Serum or plasma calcium mackenzie urement (mass/volume)Ordered By: Rodriguez Braxton on 06-13-2024 Calcium [Mass/Vol] 9.3 mg/dL 7.6-11.0 [facility] Serum or plasma carcinoembry onic antigen measurement (mass/volume)Ordered By: Art Rivas on 06-13-2024 Carcinoembryonic Ag [Mass/Vol] 7.0 ng/mL High 0.0-4.7 [facility] Comment on above: Nonsmokers <3.9 Smok ers <5.6[employer] Electrochemiluminescence Immunoassay(ECLIA)Values obtained with different assay methods or kitscannot be used interchangeably. Results cannot beinterpreted as absolute evidence of the presence orabsence of malignant disease.Performed at: [facility] [id number] Director: Brandin Moy PhD, Phone: [phone] Serum or plasma immunoglobul in kappa light chains measurement (mass/volume)Ordered By: Art Rivas on 06-13-2024 Immunoglobulin light chains.kappa [Mass/Vol] 22.6 mg/L High 3.3-19.4 [facility] Serum or plasma protein mackenzie urement (mass/volume)Ordered By: Art Rivas on 06-13-2024 Protein [Mass/Vol] 5.0 g/dL Low 6.0-8.5 [facility] Serum or plasma protein mono clonal measurement by electrophoresis (mass/volume)Ordered By: Art Rivas on 06-13-2024 Protein.monoclonal Elph [Mass/Vol] Not Observed g/dL Not Observed [facility] Serum or plasma urea nitroge n measurement (mass/volume)Ordered By: Rodriguez Braxton on 06-13-2024 Urea nitrogen [Mass/Vol] 13 mg/dL 4-19 [facility] Sodium levelOrdered By: Melvin Braxton on 06-13-2024 Sodium [Moles/Vol] 133 mmol/L 133-145 [facility] Urine protein measurement (m ass/volume)Ordered By: Art Rivas on 06-13-2024 Protein (U) [Mass/Vol] 32.6 mg/dL High 0.0-12.0 [facility] Urine protein/creatinine mas s ratioOrdered By: Art Rivas on 06-13-2024 Protein/Creatinine (U) [Mass ratio] 426 mg/g CRE High 0-200 [facility] White blood cell (WBC) count Ordered By: Rodriguez Braxton on 06-13-2024 WBC (Bld) [#/Vol] 16.7 10*3/uL High 4.4-11.[address] [facility] CTA Chest W/WO Contraston CTA Chest W/WO Contrast Normal [facility] Emergency Department Summary on 06-12-2024 Emergency Department Summary Normal [facility] Partial Thromboplast Timeon 06-12-2024 aPTT Coag (Bld) [Time] 38.9 s High 24.1-36.2 [facility] Comment on above: Performed By: #### L 300.3900, M200.1000, L300.4310 ####[facility] [address] [place], [address] Prothrombin Time w/INRon INR Coag (PPP) [Relative time] 1.4 {INR} Normal [facility] Comment on above: Performed By: #### L 300.3900, M200.1000, L300.4310 ####[facility] [address] [place], [address] PT Coag (PPP) [Time] 17.0 s High 11.7-14.9 [facility] Comment on above: Performed By: #### L 300.3900, M200.1000, L300.4310 ####[facility] [address] [place], [address] Urinalysis, Completeon 06-12 BACTERIA 2+ /hpf Normal None Seen [facility] Comment on above: Order Comment: COLLE CTOR TO SPECIFY Performed By: #### L 400.0001 ####[facility] [address] [place], [address] EPI,SQUAMOUS 25-50 SEEN Normal 5-10 [facility] Comment on above: Order Comment: CHE CTOR TO SPECIFY Performed By: #### L 400.0001 ####[facility] [address] [place], [place], [id number] Mucus Ql (Urine sed) RARE Normal [facility] Comment on above: Order Comment: CHE CTOR TO SPECIFY Performed By: #### L 400.0001 ####[facility] [address] [place], [place], [id number] WBC 5-10 SEEN Normal 0-5 [facility] Comment on above: Order Comment: CHE CTOR TO SPECIFY Performed By: #### L 400.0001 ####[facility] [address] [place], [address] 12 Lead EKGon 06-11-2024 12 Lead EKG Normal [facility] Abdomen/Pelvis W IV Cont ONL Yon 06-11-2024 Abdomen/Pelvis W IV Cont ONLY Normal [facility] Absolute lymphocyte countOrd ered By: Rodriguez Braxton on 06-11-2024 Lymphocytes Auto (Unsp spec) [#/Vol] 1.45 10*3/uL 0.83-4.51 [facility] Absolute neutrophil countOrd ered By: Rodriguez Braxton on 06-11-2024 Neutrophils (Bld) [#/Vol] 12.8 10*3/uL High 2.0-7.7 [facility] Activated partial thrombopla stin time (aPTT) in platelet poor plasma by coagulation aOrdered By: Rodriguez Braxton on 06-11-2024 aPTT Coag (PPP) [Time] 38.9 s High 24.1-36.2 [facility] Anion gap in Serum or Plasma Ordered By: Rodriguez Braxton on 06-11-2024 Anion gap [Moles/Vol] 14 mmol/L 5-15 [facility] Automated lymphocyte count a s percentage of total leukocytesOrdered By: Rodriguez Braxton on 06-11-2024 Lymphocytes/100 WBC Auto (Unsp spec) 9.1 % Low 19-41 [facility] BUN/creatinine ratioOrdered By: Rodriguez Braxton on 06-11-2024 Urea nitrogen/Creatinine [Mass ratio] 22.6 mg/mg High - [facility] Basic Metabolic Profile (BMP )on 06-11-2024 BUN/CRE 22.6 RATIO High - [facility] Comment on above: Performed By: #### L 501.5200, L503.6005, L100.0100, L500.2500 ####[facility] [address] [place], [address] Calcium [Mass/Vol] 9.1 mg/dL Normal 7.6-11.0 [facility] Comment on above: Performed By: #### L 501.5200, L503.6005, L100.0100, L500.2500 ####[facility] [address] [place], [address] Chloride [Moles/Vol] 97 mmol/L Low 98-108 [facility] Comment on above: Performed By: #### L 501.5200, L503.6005, L100.0100, L500.2500 ####[facility] [address] [place], [address] CO2 [Moles/Vol] 21.5 mmol/L Normal 21.0-32.0 [facility] Comment on above: Performed By: #### L 501.5200, L503.6005, L100.0100, L500.2500 ####[facility] [address] [place], [address] Creatinine [Mass/Vol] 0.70 mg/dL Normal 0.70-1.20 [facility] Comment on above: Performed By: #### L 501.5200, L503.6005, L100.0100, L500.2500 ####[facility] [address] [place], [address] ECRCL 56.29 ml/min Normal 50-250 [facility] Comment on above: Performed By: #### L 501.5200, L503.6005, L100.0100, L500.2500 ####[facility] [address] [place], [address] GAP 14 Normal 5-15 [facility] Comment on above: Performed By: #### L 501.5200, L503.6005, L100.0100, L500.2500 ####[facility] [address] [place], [address] GFR/1.73 sq M.predicted among non-blacks MDRD (S/P/Bld) [Vol rate/Area] 88 mL/min/{1.73_m2} Normal >60 [facility] Comment on above: Result Comment: mL/m in/1.73m2 CKD-EPI Creatinine Equation (2020) Performed By: #### L 501.5200, L503.6005, L100.0100, L500.2500 ####[facility] [address] [place], [address] Glucose [Mass/Vol] 169 mg/dL High 70-99 [facility] Comment on above: Performed By: #### L 501.5200, L503.6005, L100.0100, L500.2500 ####[facility] [address] [place], [address] Potassium [Moles/Vol] 3.3 mmol/L Normal 3.3-5.1 [facility] Comment on above: Performed By: #### L 501.5200, L503.6005, L100.0100, L500.2500 ####[facility] [address] [place], [address] Sodium [Moles/Vol] 133 mmol/L Normal 133-145 [facility] Comment on above: Performed By: #### L 501.5200, L503.6005, L100.0100, L500.2500 ####[facility] [address] [place], [address] Urea nitrogen [Mass/Vol] 16 mg/dL Normal 4-19 [facility] Comment on above: Performed By: #### L 501.5200, L503.6005, L100.0100, L500.2500 ####[facility] [address] [place], [address] Basophil percentageOrdered B y: Rodriguez Braxton on 06-11-2024 Basophils/100 WBC (Bld) 0.4 % 0-[address] [facility] Bilirubin Test strip Ql (U)O rdered By: Rodriguez Braxton on 06-11-2024 Bilirubin Ql (U) 1 mg/dL High Negative [facility] Comment on above: COLOR OF URINE MAY A FFECT DIPSTICK RESULTS. Blood cultureOrdered By: Logan Braxton on 06-11-2024 Bacteria identified Cx Nom (Bld) No growth in 5 days. [facility] Bacteria identified Cx Nom (Bld) No growth in 5 days. [facility] CBC W/Diff, Automatedon 05-25 Absolute Lymph 1.45 X10 3/uL Normal 0.83-4.51 [facility] Comment on above: Performed By: #### L 501.5200, L503.6005, L100.0100, L500.2500 ####[facility] [address] [place], [address] Absolute Neut 12.8 X10 3/uL High 2.0-7.7 [facility] Comment on above: Performed By: #### L 501.5200, L503.6005, L100.0100, L500.2500 ####[facility] [address] [place], [address] Basophils/100 WBC (Bld) 0.4 % Normal 0-[address] [facility] Comment on above: Performed By: #### L 501.5200, L503.6005, L100.0100, L500.2500 ####[facility] [address] [place], [address] Eosinophils/100 WBC (Bld) 0.7 % Normal 0-5 [facility] Comment on above: Performed By: #### L 501.5200, L503.6005, L100.0100, L500.2500 ####[facility] [address] [place], [address] Erythrocyte distribution width (RBC) [Ratio] 13.3 % Normal 11.6-14.6 [facility] Comment on above: Performed By: #### L 501.5200, L503.6005, L100.0100, L500.2500 ####[facility] [address] [place], [address] Hematocrit (Bld) [Volume fraction] 40.6 % Normal 37-47 [facility] Comment on above: Performed By: #### L 501.5200, L503.6005, L100.0100, L500.2500 ####[facility] [address] [place], [address] Hemoglobin (Bld) [Mass/Vol] 13.8 g/dL Normal 12.0-15.0 [facility] Comment on above: Performed By: #### L 501.5200, L503.6005, L100.0100, L500.2500 ####[facility] [address] [place], [address] IG% 0.500 Normal 0.0-0.9 [facility] Comment on above: Result Comment: IG% - Immature Granulocytes (promyelocytes, myelocytes andmetamyelocytes) > 1% indicates that a LEFT SHIFT is Present. Performed By: #### L 501.5200, L503.6005, L100.0100, L500.2500 ####[facility] [address] [place], [address] Lymphocytes/100 WBC (Bld) 9.1 % Low 19-41 [facility] Comment on above: Performed By: #### L 501.5200, L503.6005, L100.0100, L500.2500 ####[facility] [address] [place], [address] MCH (RBC) [Entitic mass] 28.6 pg Normal 27.0-32.0 [facility] Comment on above: Performed By: #### L 501.5200, L503.6005, L100.0100, L500.2500 ####[facility] [address] [place], [address] MCHC (RBC) [Mass/Vol] 34.0 g/dL Normal 32-36 [facility] Comment on above: Performed By: #### L 501.5200, L503.6005, L100.0100, L500.2500 ####[facility] [address] [place], [address] MCV (RBC) [Entitic vol] 84.2 fL Normal 81-99 [facility] Comment on above: Performed By: #### L 501.5200, L503.6005, L100.0100, L500.2500 ####[facility] [address] [place], [address] Monocytes/100 WBC (Bld) 9.3 % Normal 0-10 [facility] Comment on above: Performed By: #### L 501.5200, L503.6005, L100.0100, L500.2500 ####[facility] [address] [place], [address] Neutrophils/100 WBC (Bld) 80.0 % High 47-70 [facility] Comment on above: Performed By: #### L 501.5200, L503.6005, L100.0100, L500.2500 ####[facility] [address] [place], [address] Nucleated RBC (Bld) [#/Vol] 0 10*3/uL Normal 0-5 [facility] Comment on above: Performed By: #### L 501.5200, L503.6005, L100.0100, L500.2500 ####[facility] [address] [place], [address] Platelet mean volume (Bld) [Entitic vol] 10.8 fL Normal 6.2-12.0 [facility] Comment on above: Performed By: #### L 501.5200, L503.6005, L100.0100, L500.2500 ####[facility] [address] [place], [address] Platelets (Bld) [#/Vol] 363 10*3/uL Normal 150-450 [facility] Comment on above: Performed By: #### L 501.5200, L503.6005, L100.0100, L500.2500 ####[facility] [address] [place], [address] RBC (Bld) [#/Vol] 4.82 10*6/uL Normal 4.2-5.[address] [facility] Comment on above: Performed By: #### L 501.5200, L503.6005, L100.0100, L500.2500 ####[facility] [address] [place], [address] RDW SD 39.6 fl Normal 35.1-43.9 [facility] Comment on above: Performed By: #### L [id number], L503.6005, L100.0100, L500.2500 ####[facility] [address] [place], [address] WBC (Bld) [#/Vol] 16.0 10*3/uL High 4.4-11.[address] [facility] Comment on above: Performed By: #### L [id number], L503.6005, L100.0100, L500.2500 ####[facility] [address] [place], [address] Carbon dioxide, total [Moles /volume] in Central venous bloodOrdered By: Rodriguez Braxton on 06-11-2024 CO2 [Moles/Vol] 21.5 mmol/L 21.0-32.0 [facility] Chest 1 View (Portable)on Chest 1 View (Portable) Normal [facility] Chloride assayOrdered By: Yoli Braxton on 06-11-2024 Chloride [Moles/Vol] 97 mmol/L Low 98-108 [facility] Eosinophil percentageOrdered By: Rodriguez Braxton on 06-11-2024 Eosinophils/100 WBC (Bld) 0.7 % 0-5 [facility] Epithelial cells.squamous LM Ql (Urine sed)Ordered By: Rodriguez Braxton on 06-11-2024 Epithelial cells.squamous LM.HPF (Urine sed) [#/Area] 25 /[HPF] 5-10 [facility] Erythrocyte distribution wid th (RBC) [Ratio]Ordered By: Rodriguez Braxton on 06-11-2024 Erythrocyte distribution width (RBC) [Entitic vol] 39.6 fL 35.1-43.9 [facility] Erythrocyte distribution wid th ratioOrdered By: Rodriguez Braxton on 06-11-2024 Erythrocyte distribution width (RBC) [Ratio] 13.3 % 11.6-14.6 [facility] Erythrocyte distribution wid th standard deviationOrdered By: Rodriguez Braxton on 06-11-2024 Erythrocyte distribution width (RBC) [Ratio] 39.6 fl 35.1-43.9 [facility] Estimation of creatinine audi aranceOrdered By: Rodriguez Braxton on 06-11-2024 Estimated Creatinine Clearance Calc 56.29 ml/min 50-250 [facility] GFR/1.73 sq M.predicted randall g non-blacks MDRD (S/P/Bld) [Vol rate/Area]Ordered By: Rodriguez Braxton on 06-11-2024 Estimated GFR (MDRD) Non-Af Amer 88 >60 [facility] Comment on above: mL/min/1.73m2 CKD-EP I Creatinine Equation (2020) Glomerular filtration rate ( GFR) estimation/1.73 sq m using serum, plasma, or whole bOrdered By: Rodriguez Braxton on 06-11-2024 GFR/1.73 sq M.predicted among non-blacks MDRD (S/P/Bld) [Vol rate/Area] 88 mL/min/{1.73_m2} >60 [facility] Comment on above: mL/min/1.73m2 CKD-EP I Creatinine Equation (2020) Glucose Ql (U)Ordered By: Yloi Braxton on 06-11-2024 Urine Glucose (UA) Normal mg/dl Normal [facility] Hematocrit Auto (Bld) [Volum e fraction]Ordered By: Rodriguez Braxton on 06-11-2024 Hematocrit (Bld) [Volume fraction] 40.6 % 37-47 [facility] Hemoglobin measurementOrdere d By: Rodriguez Braxton on 06-11-2024 Hemoglobin (Bld) [Mass/Vol] 13.8 g/dL 12.0-15.0 [facility] Immature granulocytes/100 WB C Auto (Bld)Ordered By: Rodriguez Braxton on 06-11-2024 Immature granulocytes/100 WBC (Bld) 0.500 % 0.0-0.9 [facility] Comment on above: IG% - Immature Granu locytes (promyelocytes, myelocytes and metamyelocytes) > 1% indicates that a LEFT SHIFT is Present. International normalized rat io (INR) calculationOrdered By: Rodriguez Braxton on 06-11-2024 INR Coag (Bld) [Relative time] 1.4 {INR} [facility] Ketones Test strip Ql (U)Ord ered By: Rodriguez Braxton on 06-11-2024 Ketones Ql (U) Negative Negative [facility] Lactic Acidon 06-11-2024 Lactate [Moles/Vol] 1.1 mmol/L Normal 0.0-2.[address] [facility] Comment on above: Order Comment: Y Performed By: #### L 501.5200, L503.6005, L100.0100, L500.2500 ####[facility] [address] [place], [place], [address] Lactic acid measurementOrder ed By: Rodriguez Braxton on 06-11-2024 Lactate [Moles/Vol] 1.1 mmol/L 0.0-2.[address] [facility] Lymphocytes Auto (Unsp spec) [#/Vol]Ordered By: Rodriguez Braxton on 06-11-2024 Lymphocytes (Bld) [#/Vol] 1.45 10*3/uL 0.83-4.51 [facility] Lymphocytes/100 WBC Auto (Un sp spec)Ordered By: Rodriguez Braxton on 06-11-2024 Lymphocytes/100 WBC (Bld) 9.1 % Low 19-41 [facility] MCV (mean corpuscular volume ) determinationOrdered By: Rodriguez Braxton on 06-11-2024 MCV (RBC) [Entitic vol] 84.2 fL 81-[address] [facility] Magnesiumon 06-11-2024 Magnesium [Mass/Vol] 1.8 mg/dL Normal 1.5-2.2 [facility] Comment on above: Performed By: #### L 501.5200, L503.6005, L100.0100, L500.2500 ####[facility] [address] [place], [place], [address] Magnesium (Unsp spec) [Mass/ Vol]Ordered By: Rodriguez Braxton on 06-11-2024 Magnesium [Mass/Vol] 1.8 mg/dL 1.5-2.2 [facility] Magnesium measurement (mass/ volume)Ordered By: Rodriguez Braxton on 06-11-2024 Magnesium (Unsp spec) [Mass/Vol] 1.8 mg/dL 1.5-2.2 [facility] Mean corpuscular hemoglobin (MCH) determinationOrdered By: Rodriguez Braxton on 06-11-2024 MCH (RBC) [Entitic mass] 28.6 pg 27.0-32.0 [facility] Mean corpuscular hemoglobin concentration (MCHC) determinationOrdered By: Rodriguez Braxton on 06-11-2024 MCHC (RBC) [Mass/Vol] 34.0 g/dL 32-36 [facility] Mean platelet volume determi nationOrdered By: Rodriguez Braxton on 06-11-2024 Platelet mean volume (Bld) [Entitic vol] 10.8 fL 6.2-12.0 [facility] Microscopic analysis of urin e for red blood cells (RBC)Ordered By: Rodriguez Braxton on 06-11-2024 Microscopic analysis of urine for red blood cells (RBC) 0 SEEN /hpf 0-5 [facility] Urine RBC 0 SEEN /hpf 0-5 [facility] Monocyte percentageOrdered B y: Rodriguez Braxton on 06-11-2024 Monocytes/100 WBC (Bld) 9.3 % 0-[address] [facility] Mucus LM Ql (Urine sed)Order ed By: Rodriguez Braxton on 06-11-2024 Mucus Ql (Urine sed) RARE /hpf [facility] Neutrophil percentageOrdered By: Rodriguez Braxton on 06-11-2024 Neutrophils/100 WBC (Bld) 80.0 % High 47-70 [facility] Nitrite Test strip Ql (U)Ord ered By: Rodriguez Braxton on 06-11-2024 Nitrite Ql (U) Negative Negative [facility] Nucleated red blood cell per centageOrdered By: Rodriguez Braxton on 06-11-2024 Nucleated RBC/100 WBC (Bld) [Ratio] 0 % 0-5 [facility] Platelet countOrdered By: Yoli Braxton on 06-11-2024 Platelets (Bld) [#/Vol] 363 10*3/uL 150-450 [facility] Potassium (Unsp spec) [Mass/ Vol]Ordered By: Rodriguez Braxton on 06-11-2024 Potassium [Moles/Vol] 3.3 mmol/L 3.3-5.1 [facility] Potassium measurement (mass/ volume)Ordered By: Rodriguez Braxton on 06-11-2024 Potassium (Unsp spec) [Mass/Vol] 3.3 mmol/L 3.3-5.1 [facility] Protein Test strip Ql (U)Ord ered By: Rodriguez Braxton on 06-11-2024 Protein Ql (U) 30 mg/dl High Negative [facility] Prothrombin timeOrdered By: Rodriguez Braxton on 06-11-2024 PT Coag (PPP) [Time] 17.0 s High 11.7-14.9 [facility] RBC Auto (Bld) [#/Vol]Ordere d By: Rodriguez Braxton on 06-11-2024 RBC (Bld) [#/Vol] 4.82 10*6/uL 4.2-5.[address] [facility] Serum creatinine measurement (mass/volume)Ordered By: Rodriguez Braxton on 06-11-2024 Creatinine [Mass/Vol] 0.70 mg/dL 0.70-1.20 [facility] Serum glucose measurement (m ass/volume)Ordered By: Rodriguez Braxton on 06-11-2024 Glucose [Mass/Vol] 169 mg/dL High 70-99 [facility] Serum or plasma calcium mackenzie urement (mass/volume)Ordered By: Rodriguez Braxton on 06-11-2024 Calcium [Mass/Vol] 9.1 mg/dL 7.6-11.0 [facility] Serum or plasma urea nitroge n measurement (mass/volume)Ordered By: Rodriguez Braxton on 06-11-2024 Urea nitrogen [Mass/Vol] 16 mg/dL 4-19 [facility] Sodium levelOrdered By: Melvin Braxton on 06-11-2024 Sodium [Moles/Vol] 133 mmol/L 133-145 [facility] Squamous epithelial cells de tection in urine sediment by light microscopyOrdered By: Rodriguez Braxton on 06-11-2024 Epithelial cells.squamous LM Ql (Urine sed) 25-50 SEEN /hpf 5-10 [facility] Urinalysis, Completeon 06-11 BILIRUBIN URINE 1 mg/dL Abnormal Negative [facility] Comment on above: Order Comment: CHE RAINES TO SPECIFY Result Comment: COLO R OF URINE MAY AFFECT DIPSTICK RESULTS. Performed By: #### L [id number] ####[facility] [address] [place], [place], [id number] Clarity (U) Clear Normal Clear [facility] Comment on above: Order Comment: CHE COVARRUBIASOR TO SPECIFY Performed By: #### L [id number] ####[facility] [address] [place], [address] Color (U) Yellow Normal Yellow [facility] Comment on above: Order Comment: CHE CTOR TO SPECIFY Performed By: #### L [id number] ####[facility] [address] [place], [address] GLUCOSE, UR Normal Normal Normal [facility] Comment on above: Order Comment: COLLE CTOR TO SPECIFY Performed By: #### L [id number] ####[facility] [address] [place] [id number] KETONE UR Negative Normal Negative [facility] Comment on above: Order Comment: CHE CTOR TO SPECIFY Performed By: #### L [id number] ####[facility] [address] [place], [address] LEUK ESTERASE 25 /ul Abnormal Negative [facility] Comment on above: Order Comment: CHE CTOR TO SPECIFY Performed By: #### L [id number] ####[facility] [address] [place] [address] Nitrite Ql (U) Negative Normal Negative [facility] Comment on above: Order Comment: CHE CTOR TO SPECIFY Performed By: #### L [id number] ####[facility] [address] [place], [address] OCCULT BLOOD-UR 10 /ul Abnormal Negative [facility] Comment on above: Order Comment: CHE CTOR TO SPECIFY Performed By: #### L [id number] ####[facility] [address] [place], [address] pH UR 5.0 Normal 5.0 - 8.0 [facility] Comment on above: Order Comment: CHE CTOR TO SPECIFY Performed By: #### L [id number] ####[facility] [address] [place] [phone] PROT DIPSTX 30 mg/dl Abnormal Negative [facility] Comment on above: Order Comment: CHE CTOR TO SPECIFY Performed By: #### L [id number] ####[facility] [address] [place], [address] SP.GR. DIPSTX 1.010 Normal 1.002-1.03 0 [facility] Comment on above: Order Comment: CHE CTOR TO SPECIFY Performed By: #### L [id number] ####[facility] [address] [place], [address] UROBILI 4 mg/dl Abnormal Normal [facility] Comment on above: Order Comment: CHE CTOR TO SPECIFY Performed By: #### L [id number] ####[facility] [address] [place], [address] RBC 0 SEEN Normal 0-5 [facility] Comment on above: Order Comment: CHE CTOR TO SPECIFY Performed By: #### L 400.0001 ####[facility] [address] [place], [address] Urine blood detectionOrdered By: Rodriguez Braxton on 06-11-2024 Urine Occult Blood 10 /ul High Negative [facility] Urine clarityOrdered By: Logan Braxton on 06-11-2024 Clarity (U) Clear Clear [facility] Urine color determinationOrd ered By: Rodriguez Braxton on 06-11-2024 Color (U) Yellow Yellow [facility] Urine cultureOrdered By: Logan Braxton on 06-11-2024 Bacteria identified Cx Nom (U) Escherichia coli Abnormal [facility] Bacteria identified Cx Nom (U) GNR lactose clinical pharmacy coordinator#2 Abnormal [facility] Urine glucose detectionOrder ed By: Rodriguez Braxton on 06-11-2024 Glucose Ql (U) Normal mg/dl Normal [facility] Urine leukocyte esterase det ection by dipstickOrdered By: Rodriguez Braxton on 06-11-2024 Leukocyte esterase Test strip Ql (U) 25 /ul High Negative [facility] Urine pHOrdered By: Rodriguez san on 06-11-2024 pH (U) 5.0 [pH] 5.0 - 8.0 [facility] Urine sediment bacteria coun t by microscopy (number/high power field)Ordered By: Rodriguez Braxton on 06-11-2024 Bacteria LM.HPF (Urine sed) [#/Area] 2 /[HPF] None Seen [facility] Urine specific gravity measu rementOrdered By: Rodriguez Braxton on 06-11-2024 Specific gravity (U) [Rel density] 1.010 1.002-1.03 0 [facility] Urine urobilinogen measureme ntOrdered By: Rodriguez Braxton on 06-11-2024 Urobilinogen Ql (U) 4 mg/dl High Normal [facility] Urobilinogen Ql (U)Ordered B y: Rodriguez Braxton on 06-11-2024 Urobilinogen (U) [Mass/Vol] 4 mg/dL High Normal [facility] White blood cell (WBC) count Ordered By: Rodriguez Braxton on 06-11-2024 WBC (Bld) [#/Vol] 16.0 10*3/uL High 4.4-11.[address] [facility] White blood cell countOrdere d By: Rodriguez Braxton on 06-11-2024 Urine WBC 5-10 SEEN /hpf 0-5 [facility] White blood cell count 5-10 SEEN /hpf 0-5 [facility] aPTT Coag (PPP) [Time]Ordere d By: Rodriguez Braxton on 06-11-2024 aPTT Coag (Bld) [Time] 38.9 s High 24.1-36.2 [facility] .Urinalysis Microscopic (AO) on 06-10-2024 UA RBC None Seen Normal None Seen [facility] Comment on above: Performed By: #### U A, UAMICAO #### [address] [address] UA Squam Epithelial 5-10 Abnormal None Seen [facility] Comment on above: Performed By: #### U A, UAMICAO #### [address] [address] UA WBC 10-15 Abnormal None Seen [facility] Comment on above: Performed By: #### U A, UAMICAO #### [address] [address] UAon 06-10-2024 Color (U) Yellow Normal [facility] Comment on above: Performed By: #### U A, UAMICAO #### [place] [address] Glucose (U) [Mass/Vol] Negative Normal Negative [facility] Comment on above: Performed By: #### U A, UAMICAO #### [place] [address] Ketones Ql (U) Negative Normal Negative [facility] Comment on above: Performed By: #### U A, UAMICAO #### [place] [address] UA Appear Clear Normal Clear [facility] Comment on above: Performed By: #### U A, UAMICAO #### [place] [address] UA Bili Small Abnormal Negative [facility] Comment on above: Performed By: #### U A, UAMICAO #### [place] [address] UA Blood Negative Normal Negative [facility] Comment on above: Performed By: #### U A, UAMICAO #### [place] [address] UA Leuk Est Small Abnormal Negative [facility] Comment on above: Performed By: #### U A, UAMICAO #### [place] [address] UA Nitrite Negative Normal Negative [facility] Comment on above: Performed By: #### U A, UAMICAO #### [place] [address] UA pH 7.5 Normal 5.0 - 8.0 [facility] Comment on above: Performed By: #### U A, UAMICAO #### [place] [address] UA Protein Trace Normal Negative [facility] Comment on above: Performed By: #### U A, UAMICAO #### [facility] [address] [place], [place] [address] UA Spec Grav 1.015 Normal 1.015-1.02 5 [facility] Comment on above: Performed By: #### U A, UAMICAO #### [facility] [address] [place], [place] [address] UA Specimen Type Clean Catch Normal [facility] Comment on above: Performed By: #### U A, UAMICAO #### [facility] [address] [place], [place] [address] UA Urobilinogen 1.0 E.U./dL Normal 0.2-1.0 [facility] Comment on above: Performed By: #### U A, UAMICAO #### [place] [id number] [place], [place] [address] Final Surgical Pathology Rep [facility] 06-07-2024 Final Surgical Pathology Report . Pathology Reports Accession: Collected Date/Time: Received Date/Time: Pathologist: [id number] 06/02/2024 13:13 EDT 06/02/2024 13:13 EDT BRAYDEN DIAS MD Final Surgical Pathology Report DIAGNOSIS: LEFT LOWER LOBE LUNG, BRONCHIAL BIOPSY: - BRONCHIAL MUCOSA AND SUBMUCOSAL TISSUE WITH GRANULATION TISSUE FORMATION. KERATIN STAIN SHOWS NO DEFINITE EVIDENCE OF MALIGNANCY. CONSIDER REPEAT BIOPSY CLINICAL INFORMATION: MASS Procedure: LEFT LOWER BRONCHIAL BX SPECIMEN: A LEFT LOWER LUNG GROSS DESCRIPTION: All parts labelled with patient name and [id number] Received in formalin labeled LLL biopsies are multiple wispy simmons-pink tissue fragments aggregating 1.3 x 0.3 x 0.1 cm. Specimens submitted in biopsy bag for processing. TS-1 Lianna Montilla, Grossing Surveillance Operator/ Dr. Brayden Dias, Pathologist Performed by Lianna Montilla MICROSCOPIC DESCRIPTION: The microscopic examination is performed, except in the case of Gross Only. Verified by Pathology Report verified by [facility] BRAYDEN DIAS Sign out Date: 06/07/2024 15:47 Performing Lab: [facility], [address] [place] [address] Pathology Dept Disclaimer If ancillary studies were utilized, the following Laboratory Developed Test (LDT) disclaimer will apply: Under CLIA requirements, [facility]ology Laboratory is qualified to perform high complexity testing. For all ancillary stains, positive and negative controls stain appropriately. Performance characteristics of immunohistochemical and chromogenic in-situ hybridization tests have been determined by [facility]ology [facility]. These tests are used for clinical purposes, They should not be regarded as investigational or for research. . Normal [facility] Non-Social Service Liaison Cytology Reporton Non-Social Service Liaison Cytology Report . Pathology Reports Accession: Collected Date/Time: Received Date/Time: Pathologist: [id number] 06/02/2024 12:15 EDT 06/02/2024 13:53 EDT BRAYDEN DIAS MD Non-Social Service Liaison Cytology Report CLINICAL INFORMATION: Mass DIAGNOSTIC CATEGORY: SUSPICIOUS FOR CARCINOMA. Refer to biopsy report [id number]. SPECIMEN: Bronch [place], LLL GROSS DESCRIPTION: # of Monolayers: 1 1 brush received in CytoLyt Verified by Pathology Report verified by [facility] Screened by: JAME SANTOS Electronically signed by BRAYDEN DIAS Sign-Out Date: 06/04/2024 15:41 Performing Lab: [facility], [address] [place] [address] Pathology Dept Disclaimer If ancillary studies were utilized, the following Laboratory Developed Test (LDT) disclaimer will apply: Under CLIA requirements, [facility]ology [facility] is qualified to perform high complexity testing. For all ancillary stains, positive and negative controls stain appropriately. Performance characteristics of immunohistochemical and chromogenic in-situ hybridization tests have been determined by [facility]ology [facility]. These tests are used for clinical purposes, They should not be regarded as investigational or for research. Normal [facility] Non-Social Service Liaison Cytology Report . Pathology Reports Accession: Collected Date/Time: Received Date/Time: Pathologist: [id number] 06/02/2024 12:15 EDT 06/02/2024 13:56 EDT BRAYDEN DIAS MD Non-Social Service Liaison Cytology Report CLINICAL INFORMATION: Mass DIAGNOSTIC CATEGORY: SUSPICIOUS FOR CARCINOMA. Refer to biopsy report [id number]. SPECIMEN: Bronch [place], Left GROSS DESCRIPTION: # of Blocks: 1 # of Monolayers: 1 Volume (ml) 3 Color: fresh red fluid Verified by Pathology Report verified by [facility] Screened by: JAME SANTOS Electronically signed by BRAYDEN DIAS Sign-Out Date: 06/04/2024 15:41 Performing Lab: [facility], [address] [place] [address] Pathology Dept Disclaimer If ancillary studies were utilized, the following Laboratory Developed Test (LDT) disclaimer will apply: Under CLIA requirements, [facility] is qualified to perform high complexity testing. For all ancillary stains, positive and negative controls stain appropriately. Performance characteristics of immunohistochemical and chromogenic in-situ hybridization tests have been determined by [facility]ology [facility]. These tests are used for clinical purposes, They should not be regarded as investigational or for research. Normal [facility] .Auto Diffon 06-02-2024 Basophil, Absolute 0.1 10 3/mcL Normal 0.0-0.3 [facility] Comment on above: Performed By: #### B MP, PRO, APTT, FIB, ADIFF, ANEU, MORPH, CBC, GFR ####[address] [address] Basophils/100 WBC (Bld) 0.6 % Normal 0.0-2.5 [facility] Comment on above: Performed By: #### B MP, PRO, APTT, FIB, ADIFF, ANEU, MORPH, CBC, GFR ####[address] [address] Eosinophil, Absolute 0.2 10 3/mcL Normal 0.0-0.7 [facility] Comment on above: Performed By: #### B MP, PRO, APTT, FIB, ADIFF, ANEU, MORPH, CBC, GFR ####[address] [address] Eosinophils/100 WBC (Bld) 2.3 % Normal 0.0-6.0 [facility] Comment on above: Performed By: #### B MP, PRO, APTT, FIB, ADIFF, ANEU, MORPH, CBC, GFR ####[address] [address] Lymphocyte, Absolute 1.6 10 3/mcL Normal 0.9-4.3 [facility] Comment on above: Performed By: #### B MP, PRO, APTT, FIB, ADIFF, ANEU, MORPH, CBC, GFR ####[address] [address] Lymphocytes/100 WBC (Bld) 19.7 % Low 20.0-40.0 [facility] Comment on above: Performed By: #### B MP, PRO, APTT, FIB, ADIFF, ANEU, MORPH, CBC, GFR ####[address] [address] Monocyte, Absolute 0.7 10 3/mcL Normal 0.1-1.4 [facility] Comment on above: Performed By: #### B MP, PRO, APTT, FIB, ADIFF, ANEU, MORPH, CBC, GFR ####[address] [address] Monocytes/100 WBC (Bld) 8.7 % Normal 2.0-13.0 [facility] Comment on above: Performed By: #### B MP, PRO, APTT, FIB, ADIFF, ANEU, MORPH, CBC, GFR ####[address] [address] Neutrophils/100 WBC (Bld) 68.7 % Normal 50.0-75.0 [facility] Comment on above: Performed By: #### B MP, PRO, APTT, FIB, ADIFF, ANEU, MORPH, CBC, GFR ####[address] [address] .GFRon 06-02-2024 Estimated Glomerular Filtration Rate 103 ml/min/1.73sqm Normal [facility] Comment on above: Result Comment: Stages of Chronic Kidney Disease (CKD) Stage Description eGFR(ml/min/1.73 sq.m.) CKD 1 Normal kidney function or >=90 normal kindney function with possible kidney damage (ex. Proteinuria) CKD 2 Kidney damage with mild loss 60-89 of kidney function CKD 3a Mild to moderate loss of kidney 45-59 function CKD 3b Moderate to severe loss of 30-44 of kindey function CKD 4 Severe loss of kidney function 15-29 CKD 5 Kidney failure <15 Note: (go live 2024) the eGFR calculation was updated to the 2020 CKD-EPI creatinine equation without a race factor to calculate the eGFR results. Performed By: #### B MP, PRO, APTT, FIB, ADIFF, ANEU, MORPH, CBC, GFR ####[place] [address] .Morphon 06-02-2024 Platelet Estimate Normal Normal [facility] Comment on above: Performed By: #### B MP, PRO, APTT, FIB, ADIFF, ANEU, MORPH, CBC, GFR ####[place] [address] Ovalocytes 1+ Normal [facility] Comment on above: Performed By: #### B MP, PRO, APTT, FIB, ADIFF, ANEU, MORPH, CBC, GFR ####[place] [address] Poik 1+ Normal [facility] Comment on above: Performed By: #### B MP, PRO, APTT, FIB, ADIFF, ANEU, MORPH, CBC, GFR ####[place] [address] .NEUABSon 06-02-2024 Neutrophil, Absolute 5.5 10 3/mcL Normal 2.3-8.1 [facility] Comment on above: Performed By: #### B MP, PRO, APTT, FIB, ADIFF, ANEU, MORPH, CBC, GFR ####[place] [address] APTTon 06-02-2024 aPTT Coag (Bld) [Time] 28.3 s Normal 25.0-35.0 [facility] Comment on above: Result Comment: For Heparin anticoagulation therapy, the recommended therapeutic range is: 54-77 seconds (APTT Correlation with Anti-Xa therapeutic range of 0.3-0.7 units/ml). PLEASE REFERENCE THE PHARMACY PROTOCOL FOR DOSING. Performed By: #### B MP, PRO, APTT, FIB, ADIFF, ANEU, MORPH, CBC, GFR ####[place] [address] BMPon 06-02-2024 BUN/Creatinine Ratio 36.1 ratio High 10.0-22.0 [facility] Comment on above: Performed By: #### B MP, PRO, APTT, FIB, ADIFF, ANEU, MORPH, CBC, GFR ####[place] [address] Calcium [Mass/Vol] 9.6 mg/dL Normal 8.7-10.4 [facility] Comment on above: Performed By: #### B MP, PRO, APTT, FIB, ADIFF, ANEU, MORPH, CBC, GFR ####[place] [address] Chloride [Moles/Vol] 103 mmol/L Normal 98-110 [facility] Comment on above: Performed By: #### B MP, PRO, APTT, FIB, ADIFF, ANEU, MORPH, CBC, GFR ####[place] [id number] CO2 [Moles/Vol] 30 mmol/L Normal 22-32 [facility] Comment on above: Performed By: #### B MP, PRO, APTT, FIB, ADIFF, ANEU, MORPH, CBC, GFR ####[place] [address] Creatinine [Mass/Vol] 0.36 mg/dL Low 0.50-1.20 [facility] Comment on above: Result Comment: Test ing performed on Accelergy analyzer using enzymatic creatinine methodology. Performed By: #### B MP, PRO, APTT, FIB, ADIFF, ANEU, MORPH, CBC, GFR ####[place] [address] Electrolyte Balance 8.0 mEq/L Normal 4.0-15.0 [facility] Comment on above: Performed By: #### B MP, PRO, APTT, FIB, ADIFF, ANEU, MORPH, CBC, GFR ####[place] [address] Glucose [Mass/Vol] 150 mg/dL High 82-115 [facility] Comment on above: Performed By: #### B MP, PRO, APTT, FIB, ADIFF, ANEU, MORPH, CBC, GFR ####[place] [id number] Potassium [Moles/Vol] 3.5 mmol/L Normal 3.5-5.0 [facility] Comment on above: Performed By: #### B MP, PRO, APTT, FIB, ADIFF, ANEU, MORPH, CBC, GFR ####[place] [id number] Sodium [Moles/Vol] 141 mmol/L Normal 136-145 [facility] Comment on above: Performed By: #### B MP, PRO, APTT, FIB, ADIFF, ANEU, MORPH, CBC, GFR ####[place] [address] Urea nitrogen [Mass/Vol] 13.0 mg/dL Normal 8.0-22.0 [facility] Comment on above: Performed By: #### B MP, PRO, APTT, FIB, ADIFF, ANEU, MORPH, CBC, GFR ####[place] [address] CBCon 06-02-2024 Erythrocyte distribution width (RBC) [Ratio] 14.7 % Normal 11.5-15.5 [facility] Comment on above: Performed By: #### B MP, PRO, APTT, FIB, ADIFF, ANEU, MORPH, CBC, GFR ####[place] [address] Hematocrit (Bld) [Volume fraction] 41.1 % Normal 34.0-46.0 [facility] Comment on above: Performed By: #### B MP, PRO, APTT, FIB, ADIFF, ANEU, MORPH, CBC, GFR ####[place] [address] Hgb 13.6 G/dL Normal 12.0-16.0 [facility] Comment on above: Performed By: #### B MP, PRO, APTT, FIB, ADIFF, ANEU, MORPH, CBC, GFR ####[place] [address] MCH (RBC) [Entitic mass] 27.5 pg Normal 27.0-33.0 [facility] Comment on above: Performed By: #### B MP, PRO, APTT, FIB, ADIFF, ANEU, MORPH, CBC, GFR ####[place] [address] MCHC 33.0 G/dL Normal 32.0-36.0 [facility] Comment on above: Performed By: #### B MP, PRO, APTT, FIB, ADIFF, ANEU, MORPH, CBC, GFR ####[place] [address] MCV (RBC) [Entitic vol] 83.3 fL Normal 80.0-99.0 [facility] Comment on above: Performed By: #### B MP, PRO, APTT, FIB, ADIFF, ANEU, MORPH, CBC, GFR ####[place] [address] Platelet 308 10 3/mcL Normal 150-450 [facility] Comment on above: Performed By: #### B MP, PRO, APTT, FIB, ADIFF, ANEU, MORPH, CBC, GFR ####[place] [address] Platelet mean volume (Bld) [Entitic vol] 8.4 fL Normal 6.6-10.5 [facility] Comment on above: Performed By: #### B MP, PRO, APTT, FIB, ADIFF, ANEU, MORPH, CBC, GFR ####[place] [address] RBC 4.94 10 6/mcL Normal 4.10-5.30 [facility] Comment on above: Performed By: #### B MP, PRO, APTT, FIB, ADIFF, ANEU, MORPH, CBC, GFR ####[place] [address] WBC 8.1 10 3/mcL Normal 4.5-10.8 [facility] Comment on above: Performed By: #### B MP, PRO, APTT, FIB, ADIFF, ANEU, MORPH, CBC, GFR ####[place] [address] FIBon 06-02-2024 Fibrinogen >700 High 250-560 [facility] Comment on above: Performed By: #### B MP, PRO, APTT, FIB, ADIFF, ANEU, MORPH, CBC, GFR ####[id number] [place] [address] LABORATORYOrdered By: SYSTEM SYSTEM on 06-02-2024 aPTT Coag (Bld) [Time] 28.3 s Normal 25.0 - 35.0 seconds [facility] SS Comment on above: Interpretive Data: F or Heparin anticoagulation therapy, the recommended therapeutic range is: 54-77 seconds (APTT Correlation with Anti-Xa therapeutic range of 0.3-0.7 units/ml). PLEASE REFERENCE THE PHARMACY PROTOCOL FOR DOSING. Basophils (Bld) [#/Vol] 0.1 103/mcL Normal 0.0 - 0.3 10^3/mcL Workflow SS Basophils/100 WBC (Bld) 0.6 % Normal 0.0 - 2.5 % Workflow SS Calcium [Mass/Vol] 9.6 mg/dL Normal 8.7 - 10. 4 mg/dL ADM SS Chloride [Moles/Vol] 103 mmol/L Normal 98 - 11 0 mEq/L ADM SS CO2 [Moles/Vol] 30 mmol/L Normal 22 - 32 mEq/L ADM SS Creatinine [Mass/Vol] 0.36 mg/dL Low 0.50 - 1.20 mg/dL AH ADM SS Comment on above: Interpretive Data: T esting performed on [employer] CH analyzer using enzymatic creatinine methodology. Electrolyte Balance 8.0 mEq/L Normal 4.0 - 15 .0 mEq/L ADM SS Eosinophils (Bld) [#/Vol] 0.2 103/mcL Normal 0.0 - 0.7 10^3/mcL Workflow SS Eosinophils/100 WBC (Bld) 2.3 % Normal 0.0 - 6.0 % Workflow SS Erythrocyte distribution width (RBC) [Ratio] 14.7 % Normal 11.5 - 15.5 % Workflow SS Estimated Glomerular Filtration Rate 103 ml/min/1.73sqm Invalid Interpretation Code Chemistry S Comment on above: Interpretive Data: Stages of Chronic Kidney Disease (CKD) Stage Description eGFR(ml/min/1.73 sq.m.) CKD 1 Normal kidney function or >=90 normal kindney function with possible kidney damage (ex. Proteinuria) CKD 2 Kidney damage with mild loss 60-89 of kidney function CKD 3a Mild to moderate loss of kidney 45-59 function CKD 3b Moderate to severe loss of 30-44 of kindey function CKD 4 Severe loss of kidney function 15-29 CKD 5 Kidney failure <15 Note: (go live 2024) the eGFR calculation was updated to the 2020 CKD-EPI creatinine equation without a race factor to calculate the eGFR results. Fibrinogen mg/dL High 250 - 560 mg/dL AH [facility] SS Glucose [Mass/Vol] 150 mg/dL High 82 - 115 mg/dL AH ADM SS Hematocrit (Bld) [Volume fraction] 41.1 % Normal 34.0 - 46.0 % AH Workflow SS Hemoglobin (Bld) [Mass/Vol] 13.6 G/dL Normal 12.0 - 16.0 G/dL AH Workflow SS Lymphocytes (Bld) [#/Vol] 1.6 103/mcL Normal 0.9 - 4.3 10^3/mcL AH Workflow SS Lymphocytes/100 WBC (Bld) 19.7 % Low 20.0 - 40.0 % AH Workflow SS MCH (RBC) [Entitic mass] 27.5 pg Normal 27. 0 - 33.0 pg AH Workflow SS MCHC 33.0 G/dL Normal 32.0 - 36.0 G/dL AH Workflow SS MCV (RBC) [Entitic vol] 83.3 fL Normal 80.0 - 99.0 fL AH Workflow SS Monocytes (Bld) [#/Vol] 0.7 103/mcL Normal 0.1 - 1.4 10^3/mcL AH Workflow SS Monocytes/100 WBC (Bld) 8.7 % Normal 2.0 - 13.0 % AH Workflow SS Neutrophils (Bld) [#/Vol] 5.5 103/mcL Normal 2.3 - 8.1 10^3/mcL AH Workflow SS Neutrophils/100 WBC (Bld) 68.7 % Normal 50.0 - 75.0 % AH Workflow SS Ovalocytes LM Ql (Bld) 1+ *NA* (06/02/24 9:47 AM) Invalid Interpretation Code AH Workflow SS Platelet mean volume (Bld) [Entitic vol] 8.4 fL Normal 6.6 - 10.5 fL AH Workflow SS Platelets (Bld) [#/Vol] 308 103/mcL Normal 150 - 450 10^3/mcL Workflow SS Platelets LM Ql (Bld) Normal *NA* (06/02/24 9:47 AM) Invalid Interpretation Code Workflow SS Poikilocytosis LM Ql (Bld) 1+ *NA* (06/02/24 9:47 AM) Invalid Interpretation Code Workflow SS Potassium [Moles/Vol] 3.5 mmol/L Normal 3.5 - 5.0 mEq/L ADM SS PT Coag (PPP) [Time] 11.0 s Normal 9.0 - 1 4.4 seconds [facility] Comment on above: Interpretive Data: E ffective 09/08/07, Protime results may be affected by some antibiotics (i.e. Ciprofloxacin, Azithromycin, Bactrim) which may potentiate the action of oral anticoagulants, with further increases in Protime/INR. PT International Ratio 1.0 ratio Invalid Interpretation Code [facility] Comment on above: Interpretive Data: Clinton banegas [employer] (CHEST, 1992, 102:312S-25S) recommended therapeutic range for oral anticoagulant therapy is: LOW RISK: Prophylaxis of venous thrombosis INR: 2.0-3.0 Treatment of pulmonary embolism 2.0-3.0 Prevention of systemic embolism 2.0-3.0 HIGH RISK: Mechanical prosthetic valves 2.5-3.5 RBC (Bld) [#/Vol] 4.94 106/mcL Normal 4.10 - 5.30 10^6/mcL Workflow SS Sodium [Moles/Vol] 141 mmol/L Normal 136 - 145 mEq/L ADM SS Urea nitrogen [Mass/Vol] 13.0 mg/dL Normal 8.0 - 22.0 mg/dL ADM SS Urea nitrogen/Creatinine [Mass ratio] 36.1 ratio High 10.0 - 22.0 ratio ADM SS WBC (Bld) [#/Vol] 8.1 103/mcL Normal 4.5 - 10.8 10^3/mcL Workflow SS No Panel InformationOrdered By: Ellis Hatch on 06-02-2024 GS 1+ Mononuclear cells No organisms seen. [facility] Comment on above: Requests for Mycopla sma, Legionella, Fungi, Mycobacteria, Chlamydia, and Viruses require ordering of those individual tests. PROon 06-02-2024 INR Coag (PPP) [Relative time] 1.0 {INR} Normal [facility] Comment on above: Result Comment: [employer] (CHEST, 1992, 102:312S-25S) recommended therapeutic range for oral anticoagulant therapy is: LOW RISK: Prophylaxis of venous thrombosis INR: 2.0-3.0 Treatment of pulmonary embolism 2.0-3.0 Prevention of systemic embolism 2.0-3.0 HIGH RISK: Mechanical prosthetic valves 2.5-3.5 Performed By: #### B MP, PRO, APTT, FIB, ADIFF, ANEU, MORPH, CBC, GFR ####[id number] [place] [id number] PT Coag (PPP) [Time] 11.0 s Normal 9.0-14.4 [facility] Comment on above: Result Comment: Effe ctive 09/08/07, Protime results may be affected by some antibiotics (i.e. Ciprofloxacin, Azithromycin, Bactrim) which may potentiate the action of oral anticoagulants, with further increases in Protime/INR. Performed By: #### B MP, PRO, APTT, FIB, ADIFF, ANEU, MORPH, CBC, GFR ####[place] [id number] [address] [place] [id number] XR CHEST 1 VIEWon 06-02-2024 XR CHEST 1 VIEW ORIGINAL EXAMINATION: ONE XRAY VIEW OF THE CHEST 06/02/2024 12:57 pm COMPARISON: 06/03/2022 HISTORY: ORDERING SYSTEM PROVIDED HISTORY: Reason for Exam: s/p bronchoscopy FINDINGS: Stable cardiomediastinal silhouette. Atherosclerotic aorta. Consolidation and volume loss noted in the left lower lobe. Masslike density seen in the left infrahilar region. No large pleural effusion or pneumothorax. Osseous structures are unremarkable. Multilevel degenerative changes of the spine. IMPRESSION: Persistent masslike density in the left infrahilar region with collapse/volume loss in the left lower lobe No pneumothorax following bronchoscopy I have personally reviewed the images of this examination and agree with the resident's findings and interpretation. Interpreted by: Ellis White MD Preliminary Report By: Hillary Hemphill Electronically signed By Ellis White MD Dictated Date: 06/02/2024 1:18:35 PM Prelim Date: 06/02/2024 1:25:28 PM Sign Date: 06/02/2024 1:25:28 PM Ordering Provider: [facility] MAIN CT THORAX W/ CONTRASTon 04-0 CT THORAX W/ CONTRAST ORIGINAL EXAMINATION: CT OF THE CHEST WITH CONTRAST 05/25/2024 11:18 am TECHNIQUE: CT of the chest was performed with the administration of intravenous contrast. Multiplanar reformatted images are provided for review. Automated exposure control, iterative reconstruction, and/or weight based adjustment of the mA/kV was utilized to reduce the radiation dose to as low as reasonably achievable. COMPARISON: 01/01/2024 HISTORY: ORDERING SYSTEM PROVIDED HISTORY: Reason for Exam: PULMONARY EMBOLISM ABNORMAL CT FINDINGS: Mediastinum: 1.9 cm right thyroid lobe hypodense nodule. The heart is normal in size without pericardial effusion. Prominent multivessel coronary artery atherosclerotic calcifications/stents. The great vessels are normal in caliber. Atherosclerotic calcifications of the thoracic aorta. There is no axillary lymphadenopathy. Mildly prominent left hilar lymphadenopathy appears similar to prior. Aortic root calcifications. Lungs/pleura: The trachea appears patent. 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 There is increasing opacification extending into the superior segment of the left lower lobe which appears worsened compared to prior exam. There is a new hypodense lesion within the collapsed lung at the left lung base measuring approximately 1.8 cm (series 2, image 59). There is no pleural effusion or pneumothorax. Stable 3 mm lingular pulmonary nodule (2:44). Upper Abdomen: Redemonstration of a left hepatic lobe vascular shunt. Partially imaged left renal cyst. Mild hepatic steatosis. Right lateral abdominal wall hernia. No acute findings are seen within the upper abdomen. Soft Tissues/Bones: Degenerative changes. No acute or aggressive osseous finding. 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 Findings are again concerning for a bronchogenic carcinoma and evaluation with bronchoscopy is recommended if not already performed. New 1.8 cm hypodense lesion within the left basilar collapsed lung is concerning for possible metastatic disease. Stable left hilar lymphadenopathy suspicious for metastatic disease. 1.9 cm right thyroid lobe hypodense nodule. Further evaluation with nonemergent ultrasound is recommended if not already performed. I have personally reviewed the images of this examination and agree with the resident's findings and interpretations. Interpreted by: Brayden Alexander Preliminary Report By: Soumya Workman Electronically signed By Brayden Alexander Dictated Date: 05/26/2024 8:29:01 AM Prelim Date: 05/26/2024 9:10:39 AM Sign Date: 05/26/2024 9:10:39 AM Ordering Provider: XAVIER NEWMAN Normal [facility] Internal Medicine Office Vis jerri 05-18-2024 Internal Medicine Office Visit Normal [facility] Laboratory - Hematology and Cell countsOrdered By: Cole Cardona on 05-18-2024 HbA1c (Bld) [Mass fraction] 6.2 % 4.2-6.3 [facility] .Auto Diffon 05-13-2024 Basophil, Absolute 0.1 10 3/mcL Normal 0.0-0.3 [facility] Comment on above: Performed By: #### C BC, ADIFF, GFR, BMP, ANEU, MORPH ####[address] [address] Basophils/100 WBC (Bld) 0.9 % Normal 0.0-2.5 [facility] Comment on above: Performed By: #### C BC, ADIFF, GFR, BMP, ANEU, MORPH ####[address] [address] Eosinophil, Absolute 0.2 10 3/mcL Normal 0.0-0.7 [facility] Comment on above: Performed By: #### C BC, ADIFF, GFR, BMP, ANEU, MORPH ####[address] [address] Eosinophils/100 WBC (Bld) 2.5 % Normal 0.0-6.0 [facility] Comment on above: Performed By: #### C BC, ADIFF, GFR, BMP, ANEU, MORPH ####[address] [address] Lymphocyte, Absolute 1.4 10 3/mcL Normal 0.9-4.3 [facility] Comment on above: Performed By: #### C BC, ADIFF, GFR, BMP, ANEU, MORPH ####[address] [address] Lymphocytes/100 WBC (Bld) 19.6 % Low 20.0-40.0 [facility] Comment on above: Performed By: #### C BC, ADIFF, GFR, BMP, ANEU, MORPH ####[place] [id number] [place] [address] Monocyte, Absolute 0.7 10 3/mcL Normal 0.1-1.4 [facility] Comment on above: Performed By: #### C BC, ADIFF, GFR, BMP, ANEU, MORPH ####[address] [address] Monocytes/100 WBC (Bld) 9.5 % Normal 2.0-13.0 [facility] Comment on above: Performed By: #### C BC, ADIFF, GFR, BMP, ANEU, MORPH ####[address] [address] Neutrophils/100 WBC (Bld) 67.5 % Normal 50.0-75.0 [facility] Comment on above: Performed By: #### C BC, ADIFF, GFR, BMP, ANEU, MORPH ####[address] [address] .GFRon 05-13-2024 Estimated Glomerular Filtration Rate 94 ml/min/1.73sqm Normal [facility] Comment on above: Result Comment: Stages of Chronic Kidney Disease (CKD) Stage Description eGFR(ml/min/1.73 sq.m.) CKD 1 Normal kidney function or >=90 normal kindney function with possible kidney damage (ex. Proteinuria) CKD 2 Kidney damage with mild loss 60-89 of kidney function CKD 3a Mild to moderate loss of kidney 45-59 function CKD 3b Moderate to severe loss of 30-44 of kindey function CKD 4 Severe loss of kidney function 15-29 CKD 5 Kidney failure <15 Note: (go live 2024) the eGFR calculation was updated to the 2020 CKD-EPI creatinine equation without a race factor to calculate the eGFR results. Performed By: #### C BC, ADIFF, GFR, BMP, ANEU, MORPH ####[address] [address] .Morphon 05-13-2024 Anisocytosis Ql (Bld) 2+ Normal [facility] Comment on above: Performed By: #### C BC, ADIFF, GFR, BMP, ANEU, MORPH ####[place] [id number] Platelet Estimate Normal Normal [facility] Comment on above: Performed By: #### C BC, ADIFF, GFR, BMP, ANEU, MORPH ####[place] [address] .NEUABSon 05-13-2024 Neutrophil, Absolute 5.0 10 3/mcL Normal 2.3-8.1 [facility] Comment on above: Performed By: #### C BC, ADIFF, GFR, BMP, ANEU, MORPH ####[place] [address] BMPon 05-13-2024 BUN/Creatinine Ratio 25.9 ratio High 10.0-22.0 [facility] Comment on above: Performed By: #### C BC, ADIFF, GFR, BMP, ANEU, MORPH ####[place] [address] Calcium [Mass/Vol] 9.9 mg/dL Normal 8.7-10.4 [facility] Comment on above: Performed By: #### C BC, ADIFF, GFR, BMP, ANEU, MORPH ####[place] [address] Chloride [Moles/Vol] 104 mmol/L Normal 98-110 [facility] Comment on above: Performed By: #### C BC, ADIFF, GFR, BMP, ANEU, MORPH ####[place] [address] CO2 [Moles/Vol] 29 mmol/L Normal 22-32 [facility] Comment on above: Performed By: #### C BC, ADIFF, GFR, BMP, ANEU, MORPH ####[place] [address] Creatinine [Mass/Vol] 0.54 mg/dL Normal 0.50-1.20 [facility] Comment on above: Result Comment: Test ing performed on [employer] analyzer using enzymatic creatinine methodology. Performed By: #### C BC, ADIFF, GFR, BMP, ANEU, MORPH ####[place] [address] Electrolyte Balance 5.0 mEq/L Normal 4.0-15.0 [facility] Comment on above: Performed By: #### C BC, ADIFF, GFR, BMP, ANEU, MORPH ####[place] [address] Glucose [Mass/Vol] 166 mg/dL High 82-115 [facility] Comment on above: Performed By: #### C BC, ADIFF, GFR, BMP, ANEU, MORPH ####[place] [address] Potassium [Moles/Vol] 3.7 mmol/L Normal 3.5-5.0 [facility] Comment on above: Performed By: #### C BC, ADIFF, GFR, BMP, ANEU, MORPH ####[place] [address] Sodium [Moles/Vol] 138 mmol/L Normal 136-145 [facility] Comment on above: Performed By: #### C BC, ADIFF, GFR, BMP, ANEU, MORPH ####[place] [address] Urea nitrogen [Mass/Vol] 14.0 mg/dL Normal 8.0-22.0 [facility] Comment on above: Performed By: #### C BC, ADIFF, GFR, BMP, ANEU, MORPH ####[place] [address] CBCon 05-13-2024 Erythrocyte distribution width (RBC) [Ratio] 20.8 % High 11.5-15.5 [facility] Comment on above: Performed By: #### C BC, ADIFF, GFR, BMP, ANEU, MORPH ####[place] [address] Hematocrit (Bld) [Volume fraction] 40.8 % Normal 34.0-46.0 [facility] Comment on above: Performed By: #### C BC, ADIFF, GFR, BMP, ANEU, MORPH ####[place] [address] Hgb 13.6 G/dL Normal 12.0-16.0 [facility] Comment on above: Performed By: #### C BC, ADIFF, GFR, BMP, ANEU, MORPH ####[address] [address] MCH (RBC) [Entitic mass] 27.2 pg Normal 27.0-33.0 [facility] Comment on above: Performed By: #### C BC, ADIFF, GFR, BMP, ANEU, MORPH ####[place] [address] MCHC 33.3 G/dL Normal 32.0-36.0 [facility] Comment on above: Performed By: #### C BC, ADIFF, GFR, BMP, ANEU, MORPH ####[place] [address] MCV (RBC) [Entitic vol] 81.8 fL Normal 80.0-99.0 [facility] Comment on above: Performed By: #### C BC, ADIFF, GFR, BMP, ANEU, MORPH ####[place] [address] Platelet 323 10 3/mcL Normal 150-450 [facility] Comment on above: Performed By: #### C BC, ADIFF, GFR, BMP, ANEU, MORPH ####[place] [address] Platelet mean volume (Bld) [Entitic vol] 8.2 fL Normal 6.6-10.5 [facility] Comment on above: Performed By: #### C BC, ADIFF, GFR, BMP, ANEU, MORPH ####[place] [address] RBC 4.99 10 6/mcL Normal 4.10-5.30 [facility] Comment on above: Performed By: #### C BC, ADIFF, GFR, BMP, ANEU, MORPH ####[place] [address] WBC 7.4 10 3/mcL Normal 4.5-10.8 [facility] Comment on above: Performed By: #### C BC, ADIFF, GFR, BMP, ANEU, MORPH ####[place] [address] LABORATORYOrdered By: SYSTEM SYSTEM on 05-13-2024 Anisocytosis Ql (Bld) 2+ *NA* (05/13/24 11:10 AM) Invalid Interpretation Code Workflow SS Basophils (Bld) [#/Vol] 0.1 103/mcL Normal 0.0 - 0.3 10^3/mcL AH Workflow SS Basophils/100 WBC (Bld) 0.9 % Normal 0.0 - 2.5 % AH Workflow SS Calcium [Mass/Vol] 9.9 mg/dL Normal 8.7 - 10. 4 mg/dL AH ADM SS Chloride [Moles/Vol] 104 mmol/L Normal 98 - 11 0 mEq/L AH ADM SS CO2 [Moles/Vol] 29 mmol/L Normal 22 - 32 mEq/L AH ADM SS Creatinine [Mass/Vol] 0.54 mg/dL Normal 0.50 - 1.20 mg/dL AH ADM SS Comment on above: Interpretive Data: T esting performed on [employer] analyzer using enzymatic creatinine methodology. Electrolyte Balance 5.0 mEq/L Normal 4.0 - 15 .0 mEq/L ADM SS Eosinophils (Bld) [#/Vol] 0.2 103/mcL Normal 0.0 - 0.7 10^3/mcL AH Workflow SS Eosinophils/100 WBC (Bld) 2.5 % Normal 0.0 - 6.0 % AH Workflow SS Erythrocyte distribution width (RBC) [Ratio] 20.8 % High 11.5 - 15.5 % AH Workflow SS Estimated Glomerular Filtration Rate 94 ml/min/1.73sqm Invalid Interpretation Code Chemistry S Comment on above: Interpretive Data: Stages of Chronic Kidney Disease (CKD) Stage Description eGFR(ml/min/1.73 sq.m.) CKD 1 Normal kidney function or >=90 normal kindney function with possible kidney damage (ex. Proteinuria) CKD 2 Kidney damage with mild loss 60-89 of kidney function CKD 3a Mild to moderate loss of kidney 45-59 function CKD 3b Moderate to severe loss of 30-44 of kindey function CKD 4 Severe loss of kidney function 15-29 CKD 5 Kidney failure <15 Note: (go live 2024) the eGFR calculation was updated to the 2020 CKD-EPI creatinine equation without a race factor to calculate the eGFR results. Glucose [Mass/Vol] 166 mg/dL High 82 - 115 mg/dL AH ADM SS Hematocrit (Bld) [Volume fraction] 40.8 % Normal 34.0 - 46.0 % AH Workflow SS Hemoglobin (Bld) [Mass/Vol] 13.6 G/dL Normal 12.0 - 16.0 G/dL AH Workflow SS Lymphocytes (Bld) [#/Vol] 1.4 103/mcL Normal 0.9 - 4.3 10^3/mcL AH Workflow SS Lymphocytes/100 WBC (Bld) 19.6 % Low 20.0 - 40.0 % AH Workflow SS MCH (RBC) [Entitic mass] 27.2 pg Normal 27. 0 - 33.0 pg AH Workflow SS MCHC 33.3 G/dL Normal 32.0 - 36.0 G/dL AH Workflow SS MCV (RBC) [Entitic vol] 81.8 fL Normal 80.0 - 99.0 fL AH Workflow SS Monocytes (Bld) [#/Vol] 0.7 103/mcL Normal 0.1 - 1.4 10^3/mcL AH Workflow SS Monocytes/100 WBC (Bld) 9.5 % Normal 2.0 - 13.0 % AH Workflow SS Neutrophils (Bld) [#/Vol] 5.0 103/mcL Normal 2.3 - 8.1 10^3/mcL AH Workflow SS Neutrophils/100 WBC (Bld) 67.5 % Normal 50.0 - 75.0 % AH Workflow SS Platelet mean volume (Bld) [Entitic vol] 8.2 fL Normal 6.6 - 10.5 fL AH Workflow SS Platelets (Bld) [#/Vol] 323 103/mcL Normal 150 - 450 10^3/mcL AH Workflow SS Platelets LM Ql (Bld) Normal *NA* (05/13/24 11:10 AM) Invalid Interpretation Code AH Workflow SS Potassium [Moles/Vol] 3.7 mmol/L Normal 3.5 - 5.0 mEq/L ADM SS RBC (Bld) [#/Vol] 4.99 106/mcL Normal 4.10 - 5.30 10^6/mcL AH Workflow SS Sodium [Moles/Vol] 138 mmol/L Normal 136 - 145 mEq/L AH ADM SS Urea nitrogen [Mass/Vol] 14.0 mg/dL Normal 8.0 - 22.0 mg/dL AH ADM SS Urea nitrogen/Creatinine [Mass ratio] 25.9 ratio High 10.0 - 22.0 ratio AH ADM SS WBC (Bld) [#/Vol] 7.4 103/mcL Normal 4.5 - 10.8 10^3/mcL AH Workflow SS Internal Medicine Office Vis iton 03-23-2024 Internal Medicine Office Visit Normal [facility] Absolute neutrophil countOrd ered By: Cole Cardona on 03-02-2024 Neutrophils (Bld) [#/Vol] 5.5 10*3/uL 2.0-7.7 [facility] Albumin to globulin ratioOrd ered By: Cole Cardona on 03-02-2024 Albumin/Globulin [Mass ratio] 0.6 {ratio} Low 0.9-2.4 [facility] Basophil percentageOrdered B y: Cole Cardona on 03-02-2024 Basophils/100 WBC (Bld) 0.7 % 0-[address] [facility] Bilirubin, totalOrdered By: Cole Cardona on 03-02-2024 Bilirubin [Mass/Vol] 0.30 mg/dL 0.20-1.00 [facility] Comment on above: For patients on eltr ombopag therapy, use of Dimension [place] TBIL is not recommended. Blood urea nitrogen (BUN)/cr eatinine ratioOrdered By: Cole Cardona on 03-02-2024 Urea nitrogen/Creatinine [Mass ratio] 23.0 mg/mg High 10-20 [facility] CBC W/Diff, Automatedon Absolute Lymph 1.86 X10 3/uL Normal 0.83-4.51 [facility] Comment on above: Performed By: #### L 100.0100, L500.4050 ####[facility] [address] [place], [place], [id number] Absolute Neut 5.5 X10 3/uL Normal 2.0-7.7 [facility] Comment on above: Performed By: #### L 100.0100, L500.4050 ####[facility] [address] [place], [address] Basophils/100 WBC (Bld) 0.7 % Normal 0-[address] [facility] Comment on above: Performed By: #### L 100.0100, L500.4050 ####[facility] [address] [place], [address] Eosinophils/100 WBC (Bld) 1.9 % Normal 0-5 [facility] Comment on above: Performed By: #### L 100.0100, L500.4050 ####[facility] [address] [place], [address] Erythrocyte distribution width (RBC) [Ratio] 16.4 % High 11.6-14.6 [facility] Comment on above: Performed By: #### L 100.0100, L500.4050 ####[facility] [address] [place], [address] Hematocrit (Bld) [Volume fraction] 32.0 % Low 37-47 [facility] Comment on above: Performed By: #### L 100.0100, L500.4050 ####[facility] [address] [place], [address] Hemoglobin (Bld) [Mass/Vol] 9.3 g/dL Low 12.0-15.0 [facility] Comment on above: Performed By: #### L 100.0100, L500.4050 ####[facility] [address] [place], [address] IG% 0.400 Normal 0.0-0.9 [facility] Comment on above: Result Comment: IG% - Immature Granulocytes (promyelocytes, myelocytes andmetamyelocytes) > 1% indicates that a LEFT SHIFT is Present. Performed By: #### L 100.0100, L500.4050 ####[facility] [address] [place], [address] Lymphocytes/100 WBC (Bld) 22.6 % Normal 19-41 [facility] Comment on above: Performed By: #### L 100.0100, L500.4050 ####[facility] [address] [place], [address] MCH (RBC) [Entitic mass] 21.7 pg Low 27.0-32.0 [facility] Comment on above: Performed By: #### L 100.0100, L500.4050 ####[facility] [address] [place], [address] MCHC (RBC) [Mass/Vol] 29.1 g/dL Low 32-36 [facility] Comment on above: Performed By: #### L 100.0100, L500.4050 ####[facility] [address] [place], [address] MCV (RBC) [Entitic vol] 74.6 fL Low 81-99 [facility] Comment on above: Performed By: #### L 100.0100, L500.4050 ####[facility] [address] [place], [address] Monocytes/100 WBC (Bld) 6.9 % Normal 0-10 [facility] Comment on above: Performed By: #### L 100.0100, L500.4050 ####[facility] [address] [place], [address] Neutrophils/100 WBC (Bld) 67.5 % Normal 47-70 [facility] Comment on above: Performed By: #### L 100.0100, L500.4050 ####[facility] [address] [place], [address] Nucleated RBC (Bld) [#/Vol] 0 10*3/uL Normal 0-5 [facility] Comment on above: Performed By: #### L 100.0100, L500.4050 ####[facility] [address] [place], [address] Platelet mean volume (Bld) [Entitic vol] 10.4 fL Normal 6.2-12.0 [facility] Comment on above: Performed By: #### L 100.0100, L500.4050 ####[facility] [address] [place], [address] Platelets (Bld) [#/Vol] 556 10*3/uL High 150-450 [facility] Comment on above: Performed By: #### L 100.0100, L500.4050 ####[facility] [address] [place], [address] RBC (Bld) [#/Vol] 4.29 10*6/uL Normal 4.2-5.[address] [facility] Comment on above: Performed By: #### L 100.0100, L500.4050 ####[facility] [address] [place], [address] RDW SD 44.0 fl High 35.1-43.9 [facility] Comment on above: Performed By: #### L 100.0100, L500.4050 ####[facility] [address] [place], [address] WBC (Bld) [#/Vol] 8.2 10*3/uL Normal 4.4-11.0 [facility] Comment on above: Performed By: #### L 100.0100, L500.4050 ####[facility] [address] [place], [address] Carbon dioxide measurementOr dered By: Cole Cardona on 03-02-2024 CO2 [Moles/Vol] 30.0 mmol/L 21.0-32.0 [facility] Chloride measurementOrdered By: Cole Cardona on 03-02-2024 Chloride [Moles/Vol] 102 mmol/L 98-107 [facility] Comprehensive Metabolic Prof ilon 03-02-2024 Albumin [Mass/Vol] 2.5 g/dL Low 3.2-5.0 [facility] Comment on above: Performed By: #### L 100.0100, L500.4050 ####[facility] [address] [place], [address] Albumin/Globulin [Mass ratio] 0.6 {ratio} Low 0.9-2.4 [facility] Comment on above: Performed By: #### L 100.0100, L500.4050 ####[facility] [address] [place], [address] ALK P 156 U/L High 45-117 [facility] Comment on above: Performed By: #### L 100.0100, L500.4050 ####[facility] [address] [place], [address] ALT [Catalytic activity/Vol] 20 U/L Normal 13-56 [facility] Comment on above: Performed By: #### L 100.0100, L500.4050 ####[facility] [address] [place], [address] AST [Catalytic activity/Vol] 18 U/L Normal 15-37 [facility] Comment on above: Performed By: #### L 100.0100, L500.4050 ####[facility] [address] [place], [address] Bilirubin [Mass/Vol] 0.30 mg/dL Normal 0.20-1.00 [facility] Comment on above: Result Comment: For patients on eltrombopag therapy, use of Dimension [place] TBIL is not recommended. Performed By: #### L 100.0100, L500.4050 ####[facility] [address] [place], [address] BUN/CRE 23.0 RATIO High 10-20 [facility] Comment on above: Performed By: #### L 100.0100, L500.4050 ####[facility] [address] [place], [address] CA,Total 8.8 mg/dL Normal 8.5-10.1 [facility] Comment on above: Performed By: #### L 100.0100, L500.4050 ####[facility] [address] [place], [address] Chloride [Moles/Vol] 102 mmol/L Normal 98-107 [facility] Comment on above: Performed By: #### L 100.0100, L500.4050 ####[facility] [address] [place], [address] CO2 [Moles/Vol] 30.0 mmol/L Normal 21.0-32.0 [facility] Comment on above: Performed By: #### L 100.0100, L500.4050 ####[facility] [address] [place], [address] Creatinine [Mass/Vol] 0.70 mg/dL Normal 0.55-1.02 [facility] Comment on above: Result Comment: The validity of the calculated GFR GFRAA in patients over70 years has not been determined. Clinical correlation isessential. Performed By: #### L 100.0100, L500.4050 ####[facility] [address] [place], [address] EST GFR - AA 105 mL/min Normal >60 [facility] Comment on above: Result Comment: Afri can [place] GFR Calc Performed By: #### L 100.0100, L500.4050 ####[facility] [address] [place], [address] GAP 6 Normal 5-15 [facility] Comment on above: Performed By: #### L 100.0100, L500.4050 ####[facility] [address] [place], [address] GFR/1.73 sq M.predicted among non-blacks MDRD (S/P/Bld) [Vol rate/Area] 86 mL/min/{1.73_m2} Normal >60 [facility] Comment on above: Result Comment: Non- GFR Calc Performed By: #### L 100.0100, L500.4050 ####[facility] [address] [place], [address] Globulin (S) [Mass/Vol] 4.3 g/dL High 2.2-4.[address] [facility] Comment on above: Performed By: #### L 100.0100, L500.4050 ####[facility] [address] [place], [address] Glucose [Mass/Vol] 165 mg/dL High 74-106 [facility] Comment on above: Result Comment: Fast ing Glucose result greater than or equal to 126 mg/dLsuggests DIABETES MELLITUS per A.D.A. criteria. Performed By: #### L 100.0100, L500.4050 ####[facility] [address] [place], [address] Potassium [Moles/Vol] 3.7 mmol/L Normal 3.5-5.1 [facility] Comment on above: Performed By: #### L 100.0100, L500.4050 ####[facility] [address] [place], [address] Sodium [Moles/Vol] 138 mmol/L Normal 136-145 [facility] Comment on above: Performed By: #### L 100.0100, L500.4050 ####[facility] [address] [place], [address] T PROT 6.8 g/dL Normal 6.4-8.2 [facility] Comment on above: Performed By: #### L 100.0100, L500.4050 ####[facility] [address] [place], [address] Urea nitrogen [Mass/Vol] 16 mg/dL Normal 7-18 [facility] Comment on above: Performed By: #### L 100.0100, L500.4050 ####[facility] [address] [place], [address] Eosinophil percentageOrdered By: Cole Cardona on 03-02-2024 Eosinophils/100 WBC (Bld) 1.9 % 0-5 [facility] Erythrocyte distribution wid th (RBC) [Ratio]Ordered By: Cole Cardona on 03-02-2024 Erythrocyte distribution width (RBC) [Entitic vol] 44.0 fL High 35.1-43.9 [facility] Erythrocyte distribution wid th ratioOrdered By: Cole Cardona on 03-02-2024 Erythrocyte distribution width (RBC) [Ratio] 16.4 % High 11.6-14.6 [facility] Estimated glomerular filtrat ion rate (GFR) AmericanOrdered By: Cole Cardona on 03-02-2024 Estimated GFR (MDRD) Amer 105 mL/min >60 [facility] Comment on above: GFR Calc Glomerular filtration rate ( GFR) estimationOrdered By: Cole Cardona on 03-02-2024 Estimated GFR (MDRD) Non-Af Amer 86 mL/min >60 [facility] Comment on above: Non- GFR Calc Glucose measurementOrdered B y: Cole Cardona on 03-02-2024 Glucose [Mass/Vol] 165 mg/dL High 74-106 [facility] Comment on above: Fasting Glucose resu lt greater than or equal to 126 mg/dL suggests DIABETES MELLITUS per A.D.A. criteria. Hematocrit Auto (Bld) [Volum e fraction]Ordered By: Cole Cardona on 03-02-2024 Hematocrit (Bld) [Volume fraction] 32.0 % Low 37-47 [facility] Hemoglobin measurementOrdere d By: Cole Cardona on 03-02-2024 Hemoglobin (Bld) [Mass/Vol] 9.3 g/dL Low 12.0-15.0 [facility] Immature granulocytes/100 WB C Auto (Bld)Ordered By: Cole Cardona on 03-02-2024 Immature granulocytes/100 WBC (Bld) 0.400 % 0.0-0.9 [facility] Comment on above: IG% - Immature Granu locytes (promyelocytes, myelocytes and metamyelocytes) > 1% indicates that a LEFT SHIFT is Present. Internal Medicine Office Vis itorolando 03-02-2024 Internal Medicine Office Visit Normal [facility] Laboratory - Chemistry and C hemistry - challengeOrdered By: Cole Cardona on 03-02-2024 AST [Catalytic activity/Vol] 18 U/L 15-37 [facility] Lymphocytes Auto (Unsp spec) [#/Vol]Ordered By: Cole Cardona on 03-02-2024 Lymphocytes (Bld) [#/Vol] 1.86 10*3/uL 0.83-4.51 [facility] Lymphocytes/100 WBC Auto (Un sp spec)Ordered By: Cole Cardona on 03-02-2024 Lymphocytes/100 WBC (Bld) 22.6 % 19-41 [facility] MCV (mean corpuscular volume ) determinationOrdered By: Cole Cardona on 03-02-2024 MCV (RBC) [Entitic vol] 74.6 fL Low 81-[address] [facility] Mean corpuscular hemoglobin (MCH) determinationOrdered By: Cole Cardona on 03-02-2024 MCH (RBC) [Entitic mass] 21.7 pg Low 27.0-32.0 [facility] Mean corpuscular hemoglobin concentration (MCHC) determinationOrdered By: Cole Cardona on 03-02-2024 MCHC (RBC) [Mass/Vol] 29.1 g/dL Low 32-36 [facility] Mean platelet volume determi nationOrdered By: Cole Cardona on 03-02-2024 Platelet mean volume (Bld) [Entitic vol] 10.4 fL 6.2-12.0 [facility] Monocyte percentageOrdered B y: Cole Cardona on 03-02-2024 Monocytes/100 WBC (Bld) 6.9 % 0-[address] [facility] Neutrophil percentageOrdered By: Cole Cardona on 03-02-2024 Neutrophils/100 WBC (Bld) 67.5 % 47-70 [facility] Nucleated red blood cell per centageOrdered By: Cole Cardona on 03-02-2024 Nucleated RBC/100 WBC (Bld) [Ratio] 0 % 0-5 [facility] Platelet countOrdered By: Do mikhail Cardona on 03-02-2024 Platelets (Bld) [#/Vol] 556 10*3/uL High 150-450 [facility] Potassium measurementOrdered By: Cole Cardona on 03-02-2024 Potassium [Moles/Vol] 3.7 mmol/L 3.5-5.1 [facility] RBC Auto (Bld) [#/Vol]Ordere d By: Cole Cardona on 03-02-2024 RBC (Bld) [#/Vol] 4.29 10*6/uL 4.2-5.[address] [facility] Serum anion gap measurementO rdered By: Cole Cardona on 03-02-2024 Anion gap [Moles/Vol] 6 mmol/L 5-15 [facility] Serum globulin measurementOr dered By: Cole Cardona on 03-02-2024 Globulin (S) [Mass/Vol] 4.3 g/dL High 2.2-4.[address] [facility] Serum or plasma alanine cornejo otransferase (ALT) measurementOrdered By: Cole Cardona on 03-02-2024 ALT [Catalytic activity/Vol] 20 U/L 13-56 [facility] Serum or plasma albumin mackenzie urement (mass/volume)Ordered By: Cole Cardona on 03-02-2024 Albumin [Mass/Vol] 2.5 g/dL Low 3.2-5.0 [facility] Serum or plasma alkaline tian sphatase measurementOrdered By: Cole Cardona on 03-02-2024 ALP [Catalytic activity/Vol] 156 U/L High 45-117 [facility] Serum or plasma calcium mackenzie urement (mass/volume)Ordered By: Cole Cardona on 03-02-2024 Calcium [Mass/Vol] 8.8 mg/dL 8.5-10.1 [facility] Serum or plasma creatinine m easurement (mass/volume)Ordered By: Cole Cardona on 03-02-2024 Creatinine [Mass/Vol] 0.70 mg/dL 0.55-1.02 [facility] Comment on above: The validity of the calculated GFR & GFRAA in patients over 70 years has not been determined. Clinical correlation is essential. Serum or plasma urea nitroge n measurement (mass/volume)Ordered By: Cole Dulce on 03-02-2024 Urea nitrogen [Mass/Vol] 16 mg/dL 7-18 [facility] Sodium levelOrdered By: Jorge petty Dulce on 03-02-2024 Sodium [Moles/Vol] 138 mmol/L 136-145 [facility] Total proteinOrdered By: Annettacate Cardona on 03-02-2024 Protein [Mass/Vol] 6.8 g/dL 6.4-8.2 [facility] White blood cell (WBC) count Ordered By: Cole Dulce on 03-02-2024 WBC (Bld) [#/Vol] 8.2 10*3/uL 4.4-11.0 [facility] CT ABD/PELVIS W/ IV CONTRAST ONLYon 02-21-2024 CT ABD/PELVIS W/ IV CONTRAST ONLY ORIGINAL EXAMINATION: CT OF THE ABDOMEN AND PELVIS WITH CONTRAST 02/20/2024 2:48 pm TECHNIQUE: CT of the abdomen and pelvis was performed with the administration of intravenous contrast. Multiplanar reformatted images are provided for review. Automated exposure control, iterative reconstruction, and/or weight based adjustment of the mA/kV was utilized to reduce the radiation dose to as low as reasonably achievable. COMPARISON: CTA abdomen pelvis 12/31/2023. CT chest with contrast 01/01/2024. HISTORY: ORDERING SYSTEM PROVIDED HISTORY: Reason for Exam: pain FINDINGS: Redemonstration of masslike consolidation and lobular soft tissue density within the left lower lobe, again concerning for malignancy. Diffusely hypoattenuating liver. No abnormal enhancement. 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 A similar intraparenchymal malformation is appreciated within the inferior right hepatic lobe. The gallbladder is within normal limits for size. The spleen, pancreas and adrenal glands are unremarkable. Kidneys are within normal limits for size and enhance symmetrically. No hydroureteronephrosis or nephroureterolithiasis bilaterally. Urinary bladder is largely decompressed. Dystrophic calcification and lobulated soft tissue density arising from the uterus. There is mild mucosal thickening and enhancement along the anterior wall the stomach. Bowel gas is noted to the level of the sigmoid without evidence of obstruction. No dilated loops of bowel are identified. There is redemonstration of lobular wall thickening and enhancement at the level of the cecum adjacent to the ileocecal junction and extending partially within the ascending colon. No free air or fluid. Adenopathy is appreciated within the right lower quadrant mesentery adjacent to the aforementioned cecal thickening, as well as along the aorta and retroperitoneum. There is interval increase in size of retroperitoneal adenopathy from the prior study, for example a lymph node anterior to the left renal vein measures up to 9 mm from prior 6 mm. Numerous additional periaortic retroperitoneal lymph nodes are also increased in size. No acute osseous or soft tissue abnormalities. Stable L4 sclerotic focus. IMPRESSION: 1. Partial visualization and redemonstration of masslike consolidation and lobular soft tissue density within the left lower lobe, again concerning for malignancy. 2. Redemonstration of lobular wall thickening and enhancement at the level of the cecum adjacent to the ileocecal junction and ascending colon. This is concerning for malignancy, with adjacent mesenteric adenopathy. 3. Interval development of retroperitoneal adenopathy, concerning for metastatic disease. 4. Mild mucosal thickening and enhancement along the anterior wall the stomach. This may be related to gastritis. 5. Hepatic steatosis. 6. 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 A similar intraparenchymal malformation is appreciated within the inferior right hepatic lobe. 7. Dystrophic calcification and lobulated soft tissue density arising from the uterus, likely representing fibroids. Interpreted by: Kirit Del Toro Preliminary Report By: Kirit Del Toro Electronically signed By Kirit Del Toro Dictated Date: 02/21/2024 6:02:56 AM Prelim Date: 02/21/2024 6:16:00 AM Sign Date: 02/21/2024 6:16:00 AM Ordering Provider: MARK Mercado [facility] .Auto Diffon 02-20-2024 Basophil, Absolute 0.0 10 3/mcL Normal 0.0-0.2 [facility] Comment on above: Performed By: #### C MP, MDW, CBC, LIP, GFR, ANEU, ADIFF #### [place] [id number] Basophils/100 WBC (Bld) 0.1 % Normal 0.0-2.5 [facility] Comment on above: Performed By: #### C MARIAMA VILLALOBOS, CBC, LIP, GFR, ANEU, ADIFF #### [address] [address] Eosinophil, Absolute 0.0 10 3/mcL Normal 0.0-0.7 [facility] Comment on above: Performed By: #### C MARIAMA VILLALOBOS, CBC, LIP, GFR, ANEU, ADIFF #### [address] [address] Eosinophils/100 WBC (Bld) 0.1 % Normal 0.0-7.0 [facility] Comment on above: Performed By: #### C MARIAMA VILLALOBOS, CBC, LIP, GFR, ANEU, ADIFF #### [address] [address] Lymphocyte, Absolute 0.2 10 3/mcL Low 0.9-4.3 [facility] Comment on above: Performed By: #### C MARIAMA VILLALOBOS, CBC, LIP, GFR, ANEU, ADIFF #### [address] [address] Lymphocytes/100 WBC (Bld) 1.8 % Low 20.0-40.0 [facility] Comment on above: Performed By: #### C MARIAMA VILLALOBOS, CBC, LIP, GFR, ANEU, ADIFF #### [address] [address] Monocyte, Absolute 0.4 10 3/mcL Normal 0.1-1.4 [facility] Comment on above: Performed By: #### C MARIAMA VILLALOBOS, CBC, LIP, GFR, ANEU, ADIFF #### [address] [address] Monocytes/100 WBC (Bld) 4.0 % Normal 2.0-13.0 [facility] Comment on above: Performed By: #### C MARIAMA VILLALOBOS, CBC, LIP, GFR, ANEU, ADIFF #### [address] [address] Neutrophils/100 WBC (Bld) 94.0 % High 50.0-75.0 [facility] Comment on above: Performed By: #### C MARIAMA VILLALOBOS, CBC, LIP, GFR, ANEU, ADIFF #### [place] [id number] [place], [place] [address] .GFRon 02-20-2024 GFR Non- 100 ml/min/1.73sqm Normal [facility] Comment on above: Result Comment: GFR Population mean for , Non- Americans Ages 20-29 = 116 mL/min/1.73 sq.m. Ages 30-39 = 107 mL/min/1.73 sq.m. Ages 40-49 = 99 mL/min/1.73 sq.m. Ages 50-59 = 93 mL/min/1.73 sq.m. Ages 60-69 = 85 mL/min/1.73 sq.m. Ages 70+ = 75 mL/min/1.73 sq.m. Chronic Kidney Disease: Less than 60 mL/min/1.73 square meters End Stage Renal Disease: Less than 15 mL/min/1.73 square meters Performed By: #### C MARIAMA VILLALOBOS, PRIETO, LIP, GFR, ANEU, ADIFF #### [address] [address] GFR 122 ml/min/1.73sqm [facility] Comment on above: Result Comment: GFR Population mean for , Non- Americans Ages 20-29 = 116 mL/min/1.73 sq.m. Ages 30-39 = 107 mL/min/1.73 sq.m. Ages 40-49 = 99 mL/min/1.73 sq.m. Ages 50-59 = 93 mL/min/1.73 sq.m. Ages 60-69 = 85 mL/min/1.73 sq.m. Ages 70+ = 75 mL/min/1.73 sq.m. Chronic Kidney Disease: Less than 60 mL/min/1.73 square meters End Stage Renal Disease: Less than 15 mL/min/1.73 square meters Performed By: #### C MARIAMA VILLALOBOS, CBC, LIP, GFR, ANEU, ADIFF #### [place] [address] .MDWon 02-20-2024 Monocyte Distribution Width 21.08 High 0.00-20.00 [facility] Comment on above: Result Comment: For adults in ED, MDW>20.0 may be associated with a higher risk of sepsis during the first 12hrs of hospital admission Performed By: #### C MARIAMA VILLALOBOS, CBC, LIP, GFR, ANEU, ADIFF #### [place] [address] .NEUABSon 02-20-2024 Neutrophil, Absolute 8.7 10 3/mcL High 2.3-8.1 [facility] Comment on above: Performed By: #### C MARIAMA VILLALOBOS, CBC, LIP, GFR, ANEU, ADIFF #### [place] [address] .Urinalysis Microscopic (AO) on 02-20-2024 UA Bacteria 1+ /hpf Abnormal [facility] Comment on above: Performed By: #### C MARIAMA VILLALOBOS, CBC, LIP, GFR, ANEU, ADIFF #### [place] [address] UA RBC 0-5 Abnormal None Seen [facility] Comment on above: Performed By: #### C MARIAMA VILLALOBOS, CBC, LIP, GFR, ANEU, ADIFF #### [place] [address] UA Renal Epithelial 0-5 Abnormal [facility] Comment on above: Performed By: #### C MARIAMA VILLALOBOS, CBC, LIP, GFR, ANEU, ADIFF #### [place] [address] UA Squam Epithelial 10-15 Abnormal None Seen [facility] Comment on above: Performed By: #### C WILFREDO, W, CBC, LIP, GFR, ANEU, ADIFF #### [place] [address] UA WBC 0-5 Abnormal None Seen [facility] Comment on above: Performed By: #### C MARIAMA VILLALOBOS, CBC, LIP, GFR, ANEU, ADIFF #### [address] [address] CBCon 02-20-2024 Erythrocyte distribution width (RBC) [Ratio] 17.5 % High 11.5-15.5 [facility] Comment on above: Performed By: #### C MARIAMA VILLALOBOS, CBC, LIP, GFR, ANEU, ADIFF #### [place] [address] Hematocrit (Bld) [Volume fraction] 31.1 % Low 34.0-46.0 [facility] Comment on above: Performed By: #### C MARIAMA VILLALOBOS, CBC, LIP, GFR, ANEU, ADIFF #### [place] [address] Hgb 9.6 G/dL Low 12.0-16.0 [facility] Comment on above: Performed By: #### C MARIAMA VILLALOBOS, CBC, LIP, GFR, ANEU, ADIFF #### [place] [address] MCH (RBC) [Entitic mass] 22.3 pg Low 27.0-33.0 [facility] Comment on above: Performed By: #### C MARIAMA VILLALOBOS, CBC, LIP, GFR, ANEU, ADIFF #### [place] [address] MCHC 31.0 G/dL Low 32.0-36.0 [facility] Comment on above: Performed By: #### C MARIAMA VILLALOBOS, CBC, LIP, GFR, ANEU, ADIFF #### [place] [address] MCV (RBC) [Entitic vol] 71.9 fL Low 80.0-99.0 [facility] Comment on above: Performed By: #### C MARIAMA VILLALOBOS, CBC, LIP, GFR, ANEU, ADIFF #### [place] [id number] Platelet 395 10 3/mcL Normal 150-450 [facility] Comment on above: Performed By: #### C MARIAMA VILLALOBOS, CBC, LIP, GFR, ANEU, ADIFF #### [address] [address] Platelet mean volume (Bld) [Entitic vol] 7.9 fL Normal 6.6-10.5 [facility] Comment on above: Performed By: #### C MARIAMA VILLALOBOS, CBC, LIP, GFR, ANEU, ADIFF #### [address] [address] RBC 4.33 10 6/mcL Normal 4.10-5.30 [facility] Comment on above: Performed By: #### C MARIAMA VILLALOBOS, CBC, LIP, GFR, ANEU, ADIFF #### [address] [address] WBC 9.2 10 3/mcL Normal 4.5-10.8 [facility] Comment on above: Performed By: #### C MARIAMA VILLALOBOS, CBC, LIP, GFR, ANEU, ADIFF #### [address] [address] CMPon 02-20-2024 Albumin Level 2.7 G/dL Low 3.4-4.8 [facility] Comment on above: Performed By: #### C MARIAMA VILLALOBOS, CBC, LIP, GFR, ANEU, ADIFF #### [address] [address] Albumin/Globulin [Mass ratio] 0.7 {ratio} Low 1.1-2.5 [facility] Comment on above: Performed By: #### C MARIAMA VILLALOBOS, CBC, LIP, GFR, ANEU, ADIFF #### [address] [address] ALP [Catalytic activity/Vol] 149 U/L High 40-135 [facility] Comment on above: Performed By: #### C MARIAMA VLILALOBOS, CBC, LIP, GFR, ANEU, ADIFF #### [place] [address] ALT [Catalytic activity/Vol] 14 U/L Normal 14-59 [facility] Comment on above: Performed By: #### C MARIAMA VILLALOBOS, CBC, LIP, GFR, ANEU, ADIFF #### [address] [address] AST [Catalytic activity/Vol] 19 U/L Normal 10-40 [facility] Comment on above: Performed By: #### C MARIAMA VILLALOBOS, CBC, LIP, GFR, ANEU, ADIFF #### [address] [address] Bili Total 0.6 mg/dL Normal 0.2-1.0 [facility] Comment on above: Result Comment: Use of this assay is not recommended for patients undergoing treatment with eltrombopag due to the potential for falsely elevated results. Performed By: #### C MARIAMA VILLALOBOS, CBC, LIP, GFR, ANEU, ADIFF #### [address] [address] BUN/Creatinine Ratio 22 ratio Normal 7-27 [facility] Comment on above: Performed By: #### C MARIAMA VILLALOBOS, CBC, LIP, GFR, ANEU, ADIFF #### [address] [address] Calcium [Mass/Vol] 9.1 mg/dL Normal 8.4-10.2 [facility] Comment on above: Performed By: #### C MARIAMA VILLALOBOS, CBC, LIP, GFR, ANEU, ADIFF #### [address] [address] Chloride [Moles/Vol] 102 mmol/L Normal 98-107 [facility] Comment on above: Performed By: #### C MARIAMA VILLALOBOS, CBC, LIP, GFR, ANEU, ADIFF #### [address] [address] CO2 [Moles/Vol] 28 mmol/L Normal 23-31 [facility] Comment on above: Performed By: #### C MARIAMA VILLALOBOS, CBC, LIP, GFR, ANEU, ADIFF #### [address] [address] Creatinine [Mass/Vol] 0.58 mg/dL Normal 0.55-1.02 [facility] Comment on above: Result Comment: Test ing performed on Siemens Dimension EXL analyzer using a modified kinetic Martha technique. Performed By: #### C MARIAMA VILLALOBOS, CBC, LIP, GFR, ANEU, ADIFF #### [address] [address] Electrolyte Balance 9.0 mEq/L Normal 4.0-15.0 [facility] Comment on above: Performed By: #### C MARIAMA VILLALOBOS, CBC, LIP, GFR, ANEU, ADIFF #### [address] [address] Globulin 3.8 G/dL Normal [facility] Comment on above: Performed By: #### C MARIAMA VILLALOBOS, CBC, LIP, GFR, ANEU, ADIFF #### [address] [address] Glucose [Mass/Vol] 195 mg/dL High 83-110 [facility] Comment on above: Performed By: #### C MARIAMA VILLALOBOS, CBC, LIP, GFR, ANEU, ADIFF #### [address] [address] Potassium [Moles/Vol] 3.3 mmol/L Low 3.5-5.1 [facility] Comment on above: Performed By: #### C MARIAMA VILLALOBOS, CBC, LIP, GFR, ANEU, ADIFF #### [address] [address] Sodium [Moles/Vol] 139 mmol/L Normal 136-145 [facility] Comment on above: Performed By: #### C MARIAMA VILLALOBOS, CBC, LIP, GFR, ANEU, ADIFF #### [address] [address] Total Protein 6.5 G/dL Normal 6.4-8.2 [facility] Comment on above: Performed By: #### C MARIAMA VILLALOBOS, CBC, LIP, GFR, ANEU, ADIFF #### [facility] [address], [place] [address] Urea nitrogen [Mass/Vol] 13 mg/dL Normal 7-18 [facility] Comment on above: Performed By: #### C MARIAMA VILLALOBOS, CBC, LIP, GFR, ANEU, ADIFF #### [facility] [address], [place] [address] LABORATORYOrdered By: SYSTEM SYSTEM on 02-20-2024 Albumin BCP dye [Mass/Vol] 2.7 G/dL Low 3.4 - 4.8 G/dL AO ADM SS Albumin/Globulin [Mass ratio] 0.7 {ratio} Low 1.1 - 2.5 ratio AO ADM SS ALP [Catalytic activity/Vol] 149 U/L High 40 - 135 U/L AO ADM SS ALT With P-5'-P [Catalytic activity/Vol] 14 U/L Normal 14 - 59 U/L AO ADM SS AST With P-5'-P [Catalytic activity/Vol] 19 U/L Normal 10 - 40 U/L AO ADM SS Basophils (Bld) [#/Vol] 0.0 103/mcL Normal 0.0 - 0.2 10^3/mcL AO Workflow SS Basophils/100 WBC (Bld) 0.1 % Normal 0.0 - 2.5 % AO Workflow SS Bilirubin [Mass/Vol] 0.6 mg/dL Normal 0.2 - 1 .0 mg/dL AO ADM SS Comment on above: Interpretive Data: U se of this assay is not recommended for patients undergoing treatment with eltrombopag due to the potential for falsely elevated results. Calcium [Mass/Vol] 9.1 mg/dL Normal 8.4 - 10. 2 mg/dL AO ADM SS Chloride [Moles/Vol] 102 mmol/L Normal 98 - 10 7 mmol/L AO ADM SS CO2 [Moles/Vol] 28 mmol/L Normal 23 - 31 mmol/L AO ADM SS Creatinine [Mass/Vol] 0.58 mg/dL Normal 0.55 - 1.02 mg/dL AO ADM SS Comment on above: Interpretive Data: T esting performed on Siemens Dimension EXL analyzer using a modified kinetic Martha technique. Electrolyte Balance 9.0 mEq/L Normal 4.0 - 15 .0 mEq/L AO ADM SS Eosinophil, Absolute 0.0 103/mcL Normal 0.0 - 0 .7 10^3/mcL AO Workflow SS Eosinophils/100 WBC (Bld) 0.1 % Normal 0.0 - 7.0 % AO Workflow SS Erythrocyte distribution width (RBC) [Ratio] 17.5 % High 11.5 - 15.5 % AO Workflow SS GFR/1.73 sq M.predicted among blacks MDRD (S/P/Bld) [Vol rate/Area] 122 ml/min/1.73sqm Invalid Interpretation Code AO Chemistry S Comment on above: Interpretive Data: GFR Population mean for , Non- Americans Ages 20-29 = 116 mL/min/1.73 sq.m. Ages 30-39 = 107 mL/min/1.73 sq.m. Ages 40-49 = 99 mL/min/1.73 sq.m. Ages 50-59 = 93 mL/min/1.73 sq.m. Ages 60-69 = 85 mL/min/1.73 sq.m. Ages 70+ = 75 mL/min/1.73 sq.m. Chronic Kidney Disease: Less than 60 mL/min/1.73 square meters End Stage Renal Disease: Less than 15 mL/min/1.73 square meters GFR/1.73 sq M.predicted among non-blacks MDRD (S/P/Bld) [Vol rate/Area] 100 ml/min/1.73sqm Invalid Interpretation Code AO Chemistry S Comment on above: Interpretive Data: GFR Population mean for , Non- Americans Ages 20-29 = 116 mL/min/1.73 sq.m. Ages 30-39 = 107 mL/min/1.73 sq.m. Ages 40-49 = 99 mL/min/1.73 sq.m. Ages 50-59 = 93 mL/min/1.73 sq.m. Ages 60-69 = 85 mL/min/1.73 sq.m. Ages 70+ = 75 mL/min/1.73 sq.m. Chronic Kidney Disease: Less than 60 mL/min/1.73 square meters End Stage Renal Disease: Less than 15 mL/min/1.73 square meters Globulin 3.8 G/dL Invalid Interpretation Code AO ADM SS Glucose [Mass/Vol] 195 mg/dL High 83 - 110 mg/dL AO ADM SS Hematocrit (Bld) [Volume fraction] 31.1 % Low 34.0 - 46.0 % AO Workflow SS Hemoglobin (Bld) [Mass/Vol] 9.6 G/dL Low 12.0 - 16.0 G/dL AO Workflow SS Lipase [Catalytic activity/Vol] 37 U/L Normal 16 - 77 U/L AO ADM SS Lymphocytes (Bld) [#/Vol] 0.2 103/mcL Low 0.9 - 4.3 10^3/mcL AO Workflow SS Lymphocytes/100 WBC (Bld) 1.8 % Low 20.0 - 40.0 % AO Workflow SS MCH (RBC) [Entitic mass] 22.3 pg Low 27. 0 - 33.0 pg AO Workflow SS MCHC 31.0 G/dL Low 32.0 - 36.0 G/dL AO Workflow SS MCV (RBC) [Entitic vol] 71.9 fL Low 80.0 - 99.0 fL AO Workflow SS Monocyte distribution width Auto (Bld) [Entitic vol] 21.08 1 High 0.00 - 20.00 AO Workflow SS Comment on above: Result Comment: For adults in ED, MDW>20.0 may be associated with a higher risk of sepsis during the first 12hrs of hospital admission Monocytes (Bld) [#/Vol] 0.4 103/mcL Normal 0.1 - 1.4 10^3/mcL AO Workflow SS Monocytes/100 WBC (Bld) 4.0 % Normal 2.0 - 13.0 % AO Workflow SS Neutrophils (Bld) [#/Vol] 8.7 103/mcL High 2.3 - 8.1 10^3/mcL AO Workflow SS Neutrophils/100 WBC (Bld) 94.0 % High 50.0 - 75.0 % AO Workflow SS Platelet mean volume (Bld) [Entitic vol] 7.9 fL Normal 6.6 - 10.5 fL AO Workflow SS Platelets (Bld) [#/Vol] 395 103/mcL Normal 150 - 450 10^3/mcL AO Workflow SS Potassium [Moles/Vol] 3.3 mmol/L Low 3.5 - 5.1 mmol/L AO ADM SS Protein [Mass/Vol] 6.5 G/dL Normal 6.4 - 8.2 G/dL AO ADM SS RBC (Bld) [#/Vol] 4.33 106/mcL Normal 4.10 - 5.30 10^6/mcL AO Workflow SS Sodium [Moles/Vol] 139 mmol/L Normal 136 - 145 mmol/L AO ADM SS Urea nitrogen [Mass/Vol] 13 mg/dL Normal 7 - 18 mg/dL AO ADM SS Urea nitrogen/Creatinine [Mass ratio] 22 ratio Normal 7 - 27 ratio AO ADM SS WBC (Bld) [#/Vol] 9.2 103/mcL Normal 4.5 - 10.8 10^3/mcL AO Workflow SS LABORATORYOrdered By: Marj Desir on 02-20-2024 Appearance (U) Clear (02/20/24 1:26 PM) Normal Clear AO Auto Urine SS Bacteria LM.HPF (Urine sed) [#/Area] 1 /[HPF] Invalid Interpretation Code AO Auto Urine SS Bilirubin Ql (U) Small *ABN* (02/20/24 1:26 PM) Invalid Interpretation Code Negative AO Auto Urine SS Color (U) Yellow (02/20/24 1:26 PM) Normal AO Auto Urine SS Glucose Test strip (U) [Mass/Vol] Negative Normal Negative AO Auto Urine SS Hemoglobin Auto test strip (U) [Mass/Vol] Negative (02/20/24 1:26 PM) Normal Negative AO Auto Urine SS Ketones Ql (U) 15 mg/dL Invalid Interpretation Code Negative AO Auto Urine SS UA Leuk Est Trace *ABN* (02/20/24 1:26 PM) Invalid Interpretation Code Negative AO Auto Urine SS UA Nitrite Positive *ABN* (02/20/24 1:26 PM) Invalid Interpretation Code Negative AO Auto Urine SS UA pH 6.5 (02/20/24 1:26 PM) Normal 5.0 - 8.0 AO Auto Urine SS UA Protein 100 mg/dL Invalid Interpretation Code Negative AO Auto Urine SS UA RBC 0-5 /HPF Invalid Interpretation Code None Seen AO Auto Urine SS UA Renal Epithelial 0-5 /HPF Invalid Interpretation Code AO Auto Urine SS UA Spec Grav 1.020 (02/20/24 1:26 PM) Normal 1.015-1.02 5 AO Auto Urine SS UA Specimen Type Void (02/20/24 1:26 PM) Normal AO Auto Urine SS UA Squam Epithelial 10-15 /HPF Invalid Interpretation Code None Seen AO Auto Urine SS UA Urobilinogen 0.2 E.U./dL Normal 0.2-1.0 AO Auto Urine SS WBC LM.HPF (Urine sed) [#/Area] 0-5 /HPF Invalid Interpretation Code None Seen AO Auto Urine SS LIPon 02-20-2024 Lipase Level 37 U/L Normal 16-77 [facility] Comment on above: Performed By: #### C MARIAMA VILLALOBOS, CBC, LIP, GFR, ANEU, ADIFF #### [address] [address] UAon 02-20-2024 Color (U) Yellow Normal [facility] Comment on above: Performed By: #### C MARIAMA VILLALOBOS, CBC, LIP, GFR, ANEU, ADIFF #### [address] [address] Glucose (U) [Mass/Vol] Negative Normal Negative [facility] Comment on above: Performed By: #### C MARIAMA VILLALOBOS, CBC, LIP, GFR, ANEU, ADIFF #### [address] [address] Ketones Ql (U) 15 mg/dL Abnormal Negative [facility] Comment on above: Performed By: #### C AMRIAMA VILLALOBOS, CBC, LIP, GFR, ANEU, ADIFF #### [address] [address] UA Appear Clear Normal Clear [facility] Comment on above: Performed By: #### C MARIAMA VILLALOBOS, CBC, LIP, GFR, ANEU, ADIFF #### [address] [address] UA Bili Small Abnormal Negative [facility] Comment on above: Performed By: #### C MARIAMA VILLALOBOS, CBC, LIP, GFR, ANEU, ADIFF #### [address] [address] UA Blood Negative Normal Negative [facility] Comment on above: Performed By: #### C MARIAMA VILLALOBOS, CBC, LIP, GFR, ANEU, ADIFF #### [address] [address] UA Leuk Est Trace Abnormal Negative [facility] Comment on above: Performed By: #### C MARIAMA VILLALOBOS, CBC, LIP, GFR, ANEU, ADIFF #### [address] [address] UA Nitrite Positive Abnormal Negative [facility] Comment on above: Performed By: #### C MARIAMA VILLALOBOS, CBC, LIP, GFR, ANEU, ADIFF #### [place] [address] UA pH 6.5 Normal 5.0 - 8.0 [facility] Comment on above: Performed By: #### C MARIAMA VILLALOBOS, CBC, LIP, GFR, ANEU, ADIFF #### [place] [address] UA Protein 100 mg/dL Abnormal Negative [facility] Comment on above: Performed By: #### C MARIAMA VILLALOBOS, CBC, LIP, GFR, ANEU, ADIFF #### [place] [address] UA Spec Grav 1.020 Normal 1.015-1.02 5 [facility] Comment on above: Performed By: #### C MARIAMA VILLALOBOS, CBC, LIP, GFR, ANEU, ADIFF #### [place] [address] UA Specimen Type Void Normal [facility] Comment on above: Performed By: #### C MARIAMA VILLALOBOS, CBC, LIP, GFR, ANEU, ADIFF #### [place] [address] UA Urobilinogen 0.2 E.U./dL Normal 0.2-1.0 [facility] Comment on above: Performed By: #### C MARIAMA VILLALOBOS, CBC, LIP, GFR, ANEU, ADIFF #### [place] [address] Internal Medicine Office Vis iton 02-04-2024 Internal Medicine Office Visit Normal [facility] Protime w/INR Fingerstickon 02-03-2024 INR Coag (PPP) [Relative time] 1.1 {INR} Normal [facility] Comment on above: Result Comment: Crit ical Value > 4.0 Performed By: #### L [id number] ####[facility] [id number] [place], [place], [address] Protime Coagsen 13.1 SEC Normal 11.7-14.9 [facility] Comment on above: Performed By: #### L 9200.0000 ####[facility] [id number] [place], [place], [address] .Auto Diffon 01-03-2024 Basophil, Absolute 0.0 10 3/mcL Normal 0.0-0.3 [facility] Comment on above: Performed By: #### G FR, ANEU, BMP, MG, CBC, ADIFF ####[place] [id number] [place] [address] Basophils/100 WBC (Bld) 0.2 % Normal 0.0-2.5 [facility] Comment on above: Performed By: #### G FR, ANEU, BMP, MG, CBC, ADIFF ####[place] [id number] [place] [address] Eosinophil, Absolute 0.4 10 3/mcL Normal 0.0-0.7 [facility] Comment on above: Performed By: #### G FR, ANEU, BMP, MG, CBC, ADIFF ####[place] [id number] [place] [address] Eosinophils/100 WBC (Bld) 2.8 % Normal 0.0-6.0 [facility] Comment on above: Performed By: #### G FR, ANEU, BMP, MG, CBC, ADIFF ####[address] [address] Lymphocyte, Absolute 1.7 10 3/mcL Normal 0.9-4.3 [facility] Comment on above: Performed By: #### G FR, ANEU, BMP, MG, CBC, ADIFF ####[address] [address] Lymphocytes/100 WBC (Bld) 13.1 % Low 20.0-40.0 [facility] Comment on above: Performed By: #### G FR, ANEU, BMP, MG, CBC, ADIFF ####[place] [id number] [place] [address] Monocyte, Absolute 1.2 10 3/mcL Normal 0.1-1.4 [facility] Comment on above: Performed By: #### G FR, ANEU, BMP, MG, CBC, ADIFF ####[place] [id number] [place] [address] Monocytes/100 WBC (Bld) 9.1 % Normal 2.0-13.0 [facility] Comment on above: Performed By: #### G FR, ANEU, BMP, MG, CBC, ADIFF ####[place] [id number] [place] [address] Neutrophils/100 WBC (Bld) 74.8 % Normal 50.0-75.0 [facility] Comment on above: Performed By: #### G FR, ANEU, BMP, MG, CBC, ADIFF ####[address] [address] .GFRon 01-03-2024 GFR >60 [facility] Comment on above: Result Comment: GFR Population mean for , Non- Americans Ages 20-29 = 116 mL/min/1.73 sq.m. Ages 30-39 = 107 mL/min/1.73 sq.m. Ages 40-49 = 99 mL/min/1.73 sq.m. Ages 50-59 = 93 mL/min/1.73 sq.m. Ages 60-69 = 85 mL/min/1.73 sq.m. Ages 70+ = 75 mL/min/1.73 sq.m. Chronic Kidney Disease: Less than 60 mL/min/1.73 square meters End Stage Renal Disease: Less than 15 mL/min/1.73 square meters Performed By: #### G FR, ANEU, BMP, MG, CBC, ADIFF ####[address] [address] GFR Non- >60 Normal [facility] Comment on above: Result Comment: GFR Population mean for , Non- Americans Ages 20-29 = 116 mL/min/1.73 sq.m. Ages 30-39 = 107 mL/min/1.73 sq.m. Ages 40-49 = 99 mL/min/1.73 sq.m. Ages 50-59 = 93 mL/min/1.73 sq.m. Ages 60-69 = 85 mL/min/1.73 sq.m. Ages 70+ = 75 mL/min/1.73 sq.m. Chronic Kidney Disease: Less than 60 mL/min/1.73 square meters End Stage Renal Disease: Less than 15 mL/min/1.73 square meters Performed By: #### G FR, ANEU, BMP, MG, CBC, ADIFF ####[address] [address] .NEUABSon 01-03-2024 Neutrophil, Absolute 9.5 10 3/mcL High 2.3-8.1 [facility] Comment on above: Performed By: #### G FR, ANEU, BMP, MG, CBC, ADIFF ####[address] [address] BMPon 01-03-2024 BUN/Creatinine Ratio 18.8 ratio Normal 10.0-22.0 [facility] Comment on above: Performed By: #### G FR, ANEU, BMP, MG, CBC, ADIFF ####[address] [address] Calcium [Mass/Vol] 8.3 mg/dL Low 8.7-10.4 [facility] Comment on above: Performed By: #### G FR, ANEU, BMP, MG, CBC, ADIFF ####[address] [address] Chloride [Moles/Vol] 105 mmol/L Normal 98-110 [facility] Comment on above: Performed By: #### G FR, ANEU, BMP, MG, CBC, ADIFF ####[address] [address] CO2 [Moles/Vol] 30 mmol/L Normal 22-32 [facility] Comment on above: Performed By: #### G FR, ANEU, BMP, MG, CBC, ADIFF ####[place] [address] Creatinine [Mass/Vol] 0.48 mg/dL Low 0.50-1.20 [facility] Comment on above: Result Comment: Test ing performed on [employer] analyzer using enzymatic creatinine methodology. Performed By: #### G FR, ANEU, BMP, MG, CBC, ADIFF ####[place] [address] Electrolyte Balance 9.0 mEq/L Normal 4.0-15.0 [facility] Comment on above: Performed By: #### G FR, ANEU, BMP, MG, CBC, ADIFF ####[place] [address] Glucose [Mass/Vol] 120 mg/dL High 82-115 [facility] Comment on above: Performed By: #### G FR, ANEU, BMP, MG, CBC, ADIFF ####[place] [address] Potassium [Moles/Vol] 3.3 mmol/L Low 3.5-5.0 [facility] Comment on above: Performed By: #### G FR, ANEU, BMP, MG, CBC, ADIFF ####[place] [address] Sodium [Moles/Vol] 144 mmol/L Normal 136-145 [facility] Comment on above: Performed By: #### G FR, ANEU, BMP, MG, CBC, ADIFF ####[place] [address] Urea nitrogen [Mass/Vol] 9.0 mg/dL Normal 8.0-22.0 [facility] Comment on above: Performed By: #### G FR, ANEU, BMP, MG, CBC, ADIFF ####[place] [address] CBCon 01-03-2024 Erythrocyte distribution width (RBC) [Ratio] 15.6 % High 11.5-15.5 [facility] Comment on above: Performed By: #### G FR, ANEU, BMP, MG, CBC, ADIFF ####[place] [address] Hematocrit (Bld) [Volume fraction] 24.7 % Low 34.0-46.0 [facility] Comment on above: Performed By: #### G FR, ANEU, BMP, MG, CBC, ADIFF ####[place] [address] Hgb 8.1 G/dL Low 12.0-16.0 [facility] Comment on above: Performed By: #### G FR, ANEU, BMP, MG, CBC, ADIFF ####[place] [address] MCH (RBC) [Entitic mass] 26.4 pg Low 27.0-33.0 [facility] Comment on above: Performed By: #### G FR, ANEU, BMP, MG, CBC, ADIFF ####[place] [address] MCHC 32.8 G/dL Normal 32.0-36.0 [facility] Comment on above: Performed By: #### G FR, ANEU, BMP, MG, CBC, ADIFF ####[place] [address] MCV (RBC) [Entitic vol] 80.7 fL Normal 80.0-99.0 [facility] Comment on above: Performed By: #### G FR, ANEU, BMP, MG, CBC, ADIFF ####[place] [address] Platelet 443 10 3/mcL Normal 150-450 [facility] Comment on above: Performed By: #### G FR, ANEU, BMP, MG, CBC, ADIFF ####[place] [address] Platelet mean volume (Bld) [Entitic vol] 7.7 fL Normal 6.6-10.5 [facility] Comment on above: Performed By: #### G FR, ANEU, BMP, MG, CBC, ADIFF ####[place] [address] RBC 3.07 10 6/mcL Low 4.10-5.30 [facility] Comment on above: Performed By: #### G FR, ANEU, BMP, MG, CBC, ADIFF ####[id number] [place] [id number] WBC 12.7 10 3/mcL High 4.5-10.8 [facility] Comment on above: Performed By: #### G FR, ANEU, BMP, MG, CBC, ADIFF ####[id number] [place] [id number] LABORATORYOrdered By: SYSTEM SYSTEM on 01-03-2024 Basophils (Bld) [#/Vol] 0.0 103/mcL Normal 0.0 - 0.3 10^3/mcL Workflow SS Basophils/100 WBC (Bld) 0.2 % Normal 0.0 - 2.5 % Workflow SS Calcium [Mass/Vol] 8.3 mg/dL Low 8.7 - 10. 4 mg/dL ADM SS Chloride [Moles/Vol] 105 mmol/L Normal 98 - 11 0 mEq/L ADM SS CO2 [Moles/Vol] 30 mmol/L Normal 22 - 32 mEq/L ADM SS Creatinine [Mass/Vol] 0.48 mg/dL Low 0.50 - 1.20 mg/dL ADM SS Comment on above: Interpretive Data: T esting performed on [employer] analyzer using enzymatic creatinine methodology. Electrolyte Balance 9.0 mEq/L Normal 4.0 - 15 .0 mEq/L ADM SS Eosinophils (Bld) [#/Vol] 0.4 103/mcL Normal 0.0 - 0.7 10^3/mcL Workflow SS Eosinophils/100 WBC (Bld) 2.8 % Normal 0.0 - 6.0 % Workflow SS Erythrocyte distribution width (RBC) [Ratio] 15.6 % High 11.5 - 15.5 % Workflow SS GFR/1.73 sq M.predicted among blacks MDRD (S/P/Bld) [Vol rate/Area] ml/min/1.73sqm Invalid Interpretation Code Chemistry S Comment on above: Interpretive Data: GFR Population mean for , Non- Americans Ages 20-29 = 116 mL/min/1.73 sq.m. Ages 30-39 = 107 mL/min/1.73 sq.m. Ages 40-49 = 99 mL/min/1.73 sq.m. Ages 50-59 = 93 mL/min/1.73 sq.m. Ages 60-69 = 85 mL/min/1.73 sq.m. Ages 70+ = 75 mL/min/1.73 sq.m. Chronic Kidney Disease: Less than 60 mL/min/1.73 square meters End Stage Renal Disease: Less than 15 mL/min/1.73 square meters GFR/1.73 sq M.predicted among non-blacks MDRD (S/P/Bld) [Vol rate/Area] ml/min/1.73sqm Invalid Interpretation Code Chemistry S Comment on above: Interpretive Data: GFR Population mean for , Non- Americans Ages 20-29 = 116 mL/min/1.73 sq.m. Ages 30-39 = 107 mL/min/1.73 sq.m. Ages 40-49 = 99 mL/min/1.73 sq.m. Ages 50-59 = 93 mL/min/1.73 sq.m. Ages 60-69 = 85 mL/min/1.73 sq.m. Ages 70+ = 75 mL/min/1.73 sq.m. Chronic Kidney Disease: Less than 60 mL/min/1.73 square meters End Stage Renal Disease: Less than 15 mL/min/1.73 square meters Glucose [Mass/Vol] 120 mg/dL High 82 - 115 mg/dL ADM SS Hematocrit (Bld) [Volume fraction] 24.7 % Low 34.0 - 46.0 % Workflow SS Hemoglobin (Bld) [Mass/Vol] 8.1 G/dL Low 12.0 - 16.0 G/dL AH Workflow SS Lymphocytes (Bld) [#/Vol] 1.7 103/mcL Normal 0.9 - 4.3 10^3/mcL Workflow SS Lymphocytes/100 WBC (Bld) 13.1 % Low 20.0 - 40.0 % Workflow SS Magnesium [Mass/Vol] 1.6 mg/dL Normal 1.6 - 2 .4 mg/dL ADM SS MCH (RBC) [Entitic mass] 26.4 pg Low 27. 0 - 33.0 pg Workflow SS MCHC 32.8 G/dL Normal 32.0 - 36.0 G/dL Workflow SS MCV (RBC) [Entitic vol] 80.7 fL Normal 80.0 - 99.0 fL AH Workflow SS Monocytes (Bld) [#/Vol] 1.2 103/mcL Normal 0.1 - 1.4 10^3/mcL AH Workflow SS Monocytes/100 WBC (Bld) 9.1 % Normal 2.0 - 13.0 % AH Workflow SS Neutrophils (Bld) [#/Vol] 9.5 103/mcL High 2.3 - 8.1 10^3/mcL AH Workflow SS Neutrophils/100 WBC (Bld) 74.8 % Normal 50.0 - 75.0 % AH Workflow SS Platelet mean volume (Bld) [Entitic vol] 7.7 fL Normal 6.6 - 10.5 fL AH Workflow SS Platelets (Bld) [#/Vol] 443 103/mcL Normal 150 - 450 10^3/mcL AH Workflow SS Potassium [Moles/Vol] 3.3 mmol/L Low 3.5 - 5.0 mEq/L AH ADM SS RBC (Bld) [#/Vol] 3.07 106/mcL Low 4.10 - 5.30 10^6/mcL AH Workflow SS Sodium [Moles/Vol] 144 mmol/L Normal 136 - 145 mEq/L ADM SS Urea nitrogen [Mass/Vol] 9.0 mg/dL Normal 8.0 - 22.0 mg/dL AH ADM SS Urea nitrogen/Creatinine [Mass ratio] 18.8 ratio Normal 10.0 - 22.0 ratio AH ADM SS WBC (Bld) [#/Vol] 12.7 103/mcL High 4.5 - 10.8 10^3/mcL Workflow SS MGon 01-03-2024 Magnesium [Mass/Vol] 1.6 mg/dL Normal 1.6-2.4 [facility] Comment on above: Performed By: #### G FR, ANEU, BMP, MG, CBC, ADIFF ####[address] [address] .Auto Diffon 01-02-2024 Basophil, Absolute 0.0 10 3/mcL Normal 0.0-0.3 [facility] Comment on above: Performed By: #### A ALBERTINA, BMP, CBC, ADIFF, GFR, MG ####[address] [address] Basophils/100 WBC (Bld) 0.4 % Normal 0.0-2.5 [facility] Comment on above: Performed By: #### A ALBERTINA, BMP, CBC, ADIFF, GFR, MG ####[address] [address] Eosinophil, Absolute 0.3 10 3/mcL Normal 0.0-0.7 [facility] Comment on above: Performed By: #### A ALBERTINA, BMP, CBC, ADIFF, GFR, MG ####[address] [address] Eosinophils/100 WBC (Bld) 2.9 % Normal 0.0-6.0 [facility] Comment on above: Performed By: #### A ALBERTINA, BMP, CBC, ADIFF, GFR, MG ####[address] [address] Lymphocyte, Absolute 1.9 10 3/mcL Normal 0.9-4.3 [facility] Comment on above: Performed By: #### A ALBERTINA, BMP, CBC, ADIFF, GFR, MG ####[address] [address] Lymphocytes/100 WBC (Bld) 16.2 % Low 20.0-40.0 [facility] Comment on above: Performed By: #### A ALBERTINA, BMP, CBC, ADIFF, GFR, MG ####[address] [address] Monocyte, Absolute 1.3 10 3/mcL Normal 0.1-1.4 [facility] Comment on above: Performed By: #### A ALBERTINA, BMP, CBC, ADIFF, GFR, MG ####[address] [address] Monocytes/100 WBC (Bld) 11.1 % Normal 2.0-13.0 [facility] Comment on above: Performed By: #### A ALBERTINA, BMP, CBC, ADIFF, GFR, MG ####[address] [address] Neutrophils/100 WBC (Bld) 69.4 % Normal 50.0-75.0 [facility] Comment on above: Performed By: #### A ALBERTINA, BMP, CBC, ADIFF, GFR, MG ####[address] [address] .GFRon 01-02-2024 GFR >60 Normal [facility] Comment on above: Result Comment: GFR Population mean for , Non- Americans Ages 20-29 = 116 mL/min/1.73 sq.m. Ages 30-39 = 107 mL/min/1.73 sq.m. Ages 40-49 = 99 mL/min/1.73 sq.m. Ages 50-59 = 93 mL/min/1.73 sq.m. Ages 60-69 = 85 mL/min/1.73 sq.m. Ages 70+ = 75 mL/min/1.73 sq.m. Chronic Kidney Disease: Less than 60 mL/min/1.73 square meters End Stage Renal Disease: Less than 15 mL/min/1.73 square meters Performed By: #### A ALBERTINA, BMP, CBC, ADIFF, GFR, MG ####[place] [address] GFR Non- >60 Normal [facility] Comment on above: Result Comment: GFR Population mean for , Non- Americans Ages 20-29 = 116 mL/min/1.73 sq.m. Ages 30-39 = 107 mL/min/1.73 sq.m. Ages 40-49 = 99 mL/min/1.73 sq.m. Ages 50-59 = 93 mL/min/1.73 sq.m. Ages 60-69 = 85 mL/min/1.73 sq.m. Ages 70+ = 75 mL/min/1.73 sq.m. Chronic Kidney Disease: Less than 60 mL/min/1.73 square meters End Stage Renal Disease: Less than 15 mL/min/1.73 square meters Performed By: #### A ALBERTINA, BMP, CBC, ADIFF, GFR, MG ####[address] [address] .NEUABSon 01-02-2024 Neutrophil, Absolute 8.0 10 3/mcL Normal 2.3-8.1 [facility] Comment on above: Performed By: #### A ALBERTINA, BMP, CBC, ADIFF, GFR, MG ####[address] [address] BMPon 01-02-2024 BUN/Creatinine Ratio 18.5 ratio Normal 10.0-22.0 [facility] Comment on above: Performed By: #### A ALBERTINA, BMP, CBC, ADIFF, GFR, MG ####[place] [address] Calcium [Mass/Vol] 8.3 mg/dL Low 8.7-10.4 [facility] Comment on above: Performed By: #### A ALBERTINA, BMP, CBC, ADIFF, GFR, MG ####[place] [address] Chloride [Moles/Vol] 108 mmol/L Normal 98-110 [facility] Comment on above: Performed By: #### A ALBERTINA, BMP, CBC, ADIFF, GFR, MG ####[place] [address] CO2 [Moles/Vol] 27 mmol/L Normal 22-32 [facility] Comment on above: Performed By: #### A ALBERTINA, BMP, CBC, ADIFF, GFR, MG ####[place] [address] Creatinine [Mass/Vol] 0.54 mg/dL Normal 0.50-1.20 [facility] Comment on above: Result Comment: Test ing performed on [employer] analyzer using enzymatic creatinine methodology. Performed By: #### A ALBERTINA, BMP, CBC, ADIFF, GFR, MG ####[place] [address] Electrolyte Balance 6.0 mEq/L Normal 4.0-15.0 [facility] Comment on above: Performed By: #### A ALBERTINA, BMP, CBC, ADIFF, GFR, MG ####[place] [address] Glucose [Mass/Vol] 127 mg/dL High 82-115 [facility] Comment on above: Performed By: #### A ALBERTINA, BMP, CBC, ADIFF, GFR, MG ####[place] [address] Potassium [Moles/Vol] 3.2 mmol/L Low 3.5-5.0 [facility] Comment on above: Performed By: #### A ALBERTINA, BMP, CBC, ADIFF, GFR, MG ####[place] [address] Sodium [Moles/Vol] 141 mmol/L Normal 136-145 [facility] Comment on above: Performed By: #### A ALBERTINA, BMP, CBC, ADIFF, GFR, MG ####[place] [address] Urea nitrogen [Mass/Vol] 10.0 mg/dL Normal 8.0-22.0 [facility] Comment on above: Performed By: #### A ALBERTINA, BMP, CBC, ADIFF, GFR, MG ####[place] [address] CBCon 01-02-2024 Erythrocyte distribution width (RBC) [Ratio] 15.6 % High 11.5-15.5 [facility] Comment on above: Performed By: #### A ALBERTINA, BMP, CBC, ADIFF, GFR, MG ####[place] [address] Hematocrit (Bld) [Volume fraction] 23.9 % Low 34.0-46.0 [facility] Comment on above: Performed By: #### A ALBERTINA, BMP, CBC, ADIFF, GFR, MG ####[place] [address] Hgb 7.9 G/dL Low 12.0-16.0 [facility] Comment on above: Performed By: #### A ALBERTINA, BMP, CBC, ADIFF, GFR, MG ####[place] [address] MCH (RBC) [Entitic mass] 26.5 pg Low 27.0-33.0 [facility] Comment on above: Performed By: #### A ALBERTINA, BMP, CBC, ADIFF, GFR, MG ####[place] [address] MCHC 33.2 G/dL Normal 32.0-36.0 [facility] Comment on above: Performed By: #### A ALBERTINA, BMP, CBC, ADIFF, GFR, MG ####[place] [address] MCV (RBC) [Entitic vol] 79.6 fL Low 80.0-99.0 [facility] Comment on above: Performed By: #### A ALBERTINA, BMP, CBC, ADIFF, GFR, MG ####[place] [address] Platelet 421 10 3/mcL Normal 150-450 [facility] Comment on above: Performed By: #### A ALBERTINA, BMP, CBC, ADIFF, GFR, MG ####[place] [address] Platelet mean volume (Bld) [Entitic vol] 7.6 fL Normal 6.6-10.5 [facility] Comment on above: Performed By: #### A ALBERTINA, BMP, CBC, ADIFF, GFR, MG ####[place] [address] RBC 3.01 10 6/mcL Low 4.10-5.30 [facility] Comment on above: Performed By: #### A ALBERTINA, BMP, CBC, ADIFF, GFR, MG ####[place] [address] WBC 11.6 10 3/mcL High 4.5-10.8 [facility] Comment on above: Performed By: #### A ALBERTINA, BMP, CBC, ADIFF, GFR, MG ####[place] [address] HHon 01-02-2024 Hematocrit (Bld) [Volume fraction] 27.7 % Low 34.0-46.0 [facility] Comment on above: Performed By: #### H H ####[place] [address] Hgb 9.3 G/dL Low 12.0-16.0 [facility] Comment on above: Performed By: #### H H ####[place] [address] Hematocrit (Bld) [Volume fraction] 26.0 % Low 34.0-46.0 [facility] Comment on above: Performed By: #### H H ####[place] [address] Hgb 8.5 G/dL Low 12.0-16.0 [facility] Comment on above: Performed By: #### H H ####[place] [address] LABORATORYOrdered By: SYSTEM SYSTEM on 01-02-2024 Hematocrit (Bld) [Volume fraction] 27.7 % Low 34.0 - 46.0 % Workflow SS Hemoglobin (Bld) [Mass/Vol] 9.3 G/dL Low 12.0 - 16.0 G/dL Workflow SS Hematocrit (Bld) [Volume fraction] 26.0 % Low 34.0 - 46.0 % Workflow SS Hemoglobin (Bld) [Mass/Vol] 8.5 G/dL Low 12.0 - 16.0 G/dL Workflow SS Basophils (Bld) [#/Vol] 0.0 103/mcL Normal 0.0 - 0.3 10^3/mcL Workflow SS Basophils/100 WBC (Bld) 0.4 % Normal 0.0 - 2.5 % AH Workflow SS Calcium [Mass/Vol] 8.3 mg/dL Low 8.7 - 10. 4 mg/dL ADM SS Chloride [Moles/Vol] 108 mmol/L Normal 98 - 11 0 mEq/L ADM SS CO2 [Moles/Vol] 27 mmol/L Normal 22 - 32 mEq/L ADM SS Creatinine [Mass/Vol] 0.54 mg/dL Normal 0.50 - 1.20 mg/dL ADM SS Comment on above: Interpretive Data: T esting performed on [employer] analyzer using enzymatic creatinine methodology. Electrolyte Balance 6.0 mEq/L Normal 4.0 - 15 .0 mEq/L ADM SS Eosinophils (Bld) [#/Vol] 0.3 103/mcL Normal 0.0 - 0.7 10^3/mcL AH Workflow SS Eosinophils/100 WBC (Bld) 2.9 % Normal 0.0 - 6.0 % Workflow SS Erythrocyte distribution width (RBC) [Ratio] 15.6 % High 11.5 - 15.5 % Workflow SS GFR/1.73 sq M.predicted among blacks MDRD (S/P/Bld) [Vol rate/Area] ml/min/1.73sqm Invalid Interpretation Code KUBOO Chemistry S Comment on above: Interpretive Data: GFR Population mean for , Non- Americans Ages 20-29 = 116 mL/min/1.73 sq.m. Ages 30-39 = 107 mL/min/1.73 sq.m. Ages 40-49 = 99 mL/min/1.73 sq.m. Ages 50-59 = 93 mL/min/1.73 sq.m. Ages 60-69 = 85 mL/min/1.73 sq.m. Ages 70+ = 75 mL/min/1.73 sq.m. Chronic Kidney Disease: Less than 60 mL/min/1.73 square meters End Stage Renal Disease: Less than 15 mL/min/1.73 square meters GFR/1.73 sq M.predicted among non-blacks MDRD (S/P/Bld) [Vol rate/Area] ml/min/1.73sqm Invalid Interpretation Code KUBOO Chemistry S Comment on above: Interpretive Data: GFR Population mean for , Non- Americans Ages 20-29 = 116 mL/min/1.73 sq.m. Ages 30-39 = 107 mL/min/1.73 sq.m. Ages 40-49 = 99 mL/min/1.73 sq.m. Ages 50-59 = 93 mL/min/1.73 sq.m. Ages 60-69 = 85 mL/min/1.73 sq.m. Ages 70+ = 75 mL/min/1.73 sq.m. Chronic Kidney Disease: Less than 60 mL/min/1.73 square meters End Stage Renal Disease: Less than 15 mL/min/1.73 square meters Glucose [Mass/Vol] 127 mg/dL High 82 - 115 mg/dL ADM SS Lymphocytes (Bld) [#/Vol] 1.9 103/mcL Normal 0.9 - 4.3 10^3/mcL Workflow SS Lymphocytes/100 WBC (Bld) 16.2 % Low 20.0 - 40.0 % Workflow SS Magnesium [Mass/Vol] 1.6 mg/dL Normal 1.6 - 2 .4 mg/dL AH ADM SS MCH (RBC) [Entitic mass] 26.5 pg Low 27. 0 - 33.0 pg AH Workflow SS MCHC 33.2 G/dL Normal 32.0 - 36.0 G/dL AH Workflow SS MCV (RBC) [Entitic vol] 79.6 fL Low 80.0 - 99.0 fL AH Workflow SS Monocytes (Bld) [#/Vol] 1.3 103/mcL Normal 0.1 - 1.4 10^3/mcL AH Workflow SS Monocytes/100 WBC (Bld) 11.1 % Normal 2.0 - 13.0 % AH Workflow SS Neutrophils (Bld) [#/Vol] 8.0 103/mcL Normal 2.3 - 8.1 10^3/mcL AH Workflow SS Neutrophils/100 WBC (Bld) 69.4 % Normal 50.0 - 75.0 % AH Workflow SS Platelet mean volume (Bld) [Entitic vol] 7.6 fL Normal 6.6 - 10.5 fL AH Workflow SS Platelets (Bld) [#/Vol] 421 103/mcL Normal 150 - 450 10^3/mcL AH Workflow SS Potassium [Moles/Vol] 3.2 mmol/L Low 3.5 - 5.0 mEq/L AH ADM SS RBC (Bld) [#/Vol] 3.01 106/mcL Low 4.10 - 5.30 10^6/mcL AH Workflow SS Sodium [Moles/Vol] 141 mmol/L Normal 136 - 145 mEq/L ADM SS Urea nitrogen [Mass/Vol] 10.0 mg/dL Normal 8.0 - 22.0 mg/dL ADM SS Urea nitrogen/Creatinine [Mass ratio] 18.5 ratio Normal 10.0 - 22.0 ratio AH ADM SS WBC (Bld) [#/Vol] 11.6 103/mcL High 4.5 - 10.8 10^3/mcL Workflow SS MGon 01-02-2024 Magnesium [Mass/Vol] 1.6 mg/dL Normal 1.6-2.4 [facility] Comment on above: Performed By: #### A ALBERTINA, BMP, CBC, ADIFF, GFR, MG ####[place] [address] .Auto Diffon 11-07-2024 Basophil, Absolute 0.1 10 3/mcL Normal 0.0-0.3 [facility] Comment on above: Performed By: #### C MP, ADIFF, ANEU, GFR, CBC ####[address] [address] Basophils/100 WBC (Bld) 0.6 % Normal 0.0-2.5 [facility] Comment on above: Performed By: #### C MP, ADIFF, ANEU, GFR, CBC ####[address] [address] Eosinophil, Absolute 0.3 10 3/mcL Normal 0.0-0.7 [facility] Comment on above: Performed By: #### C MP, ADIFF, ANEU, GFR, CBC ####[address] [address] Eosinophils/100 WBC (Bld) 2.3 % Normal 0.0-6.0 [facility] Comment on above: Performed By: #### C MP, ADIFF, ANEU, GFR, CBC ####[address] [address] Lymphocyte, Absolute 2.3 10 3/mcL Normal 0.9-4.3 [facility] Comment on above: Performed By: #### C MP, ADIFF, ANEU, GFR, CBC ####[address] [address] Lymphocytes/100 WBC (Bld) 16.9 % Low 20.0-40.0 [facility] Comment on above: Performed By: #### C MP, ADIFF, ANEU, GFR, CBC ####[address] [address] Monocyte, Absolute 1.2 10 3/mcL Normal 0.1-1.4 [facility] Comment on above: Performed By: #### C MP, ADIFF, ANEU, GFR, CBC ####[address] [address] Monocytes/100 WBC (Bld) 9.1 % Normal 2.0-13.0 [facility] Comment on above: Performed By: #### C MP, ADIFF, ANEU, GFR, CBC ####[address] [address] Neutrophils/100 WBC (Bld) 71.1 % Normal 50.0-75.0 [facility] Comment on above: Performed By: #### C MP, ADIFF, ANEU, GFR, CBC ####[address] [address] .GFRon 01-01-2024 GFR >60 Normal [facility] Comment on above: Result Comment: GFR Population mean for , Non- Americans Ages 20-29 = 116 mL/min/1.73 sq.m. Ages 30-39 = 107 mL/min/1.73 sq.m. Ages 40-49 = 99 mL/min/1.73 sq.m. Ages 50-59 = 93 mL/min/1.73 sq.m. Ages 60-69 = 85 mL/min/1.73 sq.m. Ages 70+ = 75 mL/min/1.73 sq.m. Chronic Kidney Disease: Less than 60 mL/min/1.73 square meters End Stage Renal Disease: Less than 15 mL/min/1.73 square meters Performed By: #### C MP, ADIFF, ANEU, GFR, CBC ####[address] [address] GFR Non- >60 Normal [facility] Comment on above: Result Comment: GFR Population mean for , Non- Americans Ages 20-29 = 116 mL/min/1.73 sq.m. Ages 30-39 = 107 mL/min/1.73 sq.m. Ages 40-49 = 99 mL/min/1.73 sq.m. Ages 50-59 = 93 mL/min/1.73 sq.m. Ages 60-69 = 85 mL/min/1.73 sq.m. Ages 70+ = 75 mL/min/1.73 sq.m. Chronic Kidney Disease: Less than 60 mL/min/1.73 square meters End Stage Renal Disease: Less than 15 mL/min/1.73 square meters Performed By: #### C MP, ADIFF, ANEU, GFR, CBC ####[address] [address] .NEUABSon 01-01-2024 Neutrophil, Absolute 9.5 10 3/mcL High 2.3-8.1 [facility] Comment on above: Performed By: #### C MP, ADIFF, ANEU, GFR, CBC ####[place] [address] CBCon 01-01-2024 Erythrocyte distribution width (RBC) [Ratio] 16.0 % High 11.5-15.5 [facility] Comment on above: Performed By: #### C MP, ADIFF, ANEU, GFR, CBC ####[place] [address] Hematocrit (Bld) [Volume fraction] 27.3 % Low 34.0-46.0 [facility] Comment on above: Performed By: #### C MP, ADIFF, ANEU, GFR, CBC ####[place] [address] Hgb 9.1 G/dL Low 12.0-16.0 [facility] Comment on above: Performed By: #### C MP, ADIFF, ANEU, GFR, CBC ####[place] [address] MCH (RBC) [Entitic mass] 26.6 pg Low 27.0-33.0 [facility] Comment on above: Performed By: #### C MP, ADIFF, ANEU, GFR, CBC ####[place] [address] MCHC 33.4 G/dL Normal 32.0-36.0 [facility] Comment on above: Performed By: #### C MP, ADIFF, ANEU, GFR, CBC ####[place] [address] MCV (RBC) [Entitic vol] 79.7 fL Low 80.0-99.0 [facility] Comment on above: Performed By: #### C MP, ADIFF, ANEU, GFR, CBC ####[place] [address] Platelet 525 10 3/mcL High 150-450 [facility] Comment on above: Performed By: #### C MP, ADIFF, ANEU, GFR, CBC ####[place] [address] Platelet mean volume (Bld) [Entitic vol] 7.5 fL Normal 6.6-10.5 [facility] Comment on above: Performed By: #### C MP, ADIFF, ANEU, GFR, CBC ####[place] [address] RBC 3.42 10 6/mcL Low 4.10-5.30 [facility] Comment on above: Performed By: #### C MP, ADIFF, ANEU, GFR, CBC ####[place] [address] WBC 13.4 10 3/mcL High 4.5-10.8 [facility] Comment on above: Performed By: #### C MP, ADIFF, ANEU, GFR, CBC ####[place] [address] CEAon 01-01-2024 CEA 2.4 ng/mL Normal 0.0-3.0 [facility] Comment on above: Result Comment: CEA Reference Range for SMOKERS: 0.0 - 5.0 ng/mL. Testing performed on the [employer] IM analyzer using direct chemiluminesent technology. Patient results determined by assays using different manufacturers for methods may not be comparable. Performed By: #### C EA ####[place] [address] CMPon 01-01-2024 Albumin Level 2.1 G/dL Low 3.2-4.8 [facility] Comment on above: Performed By: #### C MP, ADIFF, ANEU, GFR, CBC ####[place] [address] Albumin/Globulin [Mass ratio] 0.6 {ratio} Low 0.9-1.6 [facility] Comment on above: Performed By: #### C MP, ADIFF, ANEU, GFR, CBC ####[place] [address] ALP [Catalytic activity/Vol] 174 U/L High 38-126 [facility] Comment on above: Performed By: #### C MP, ADIFF, ANEU, GFR, CBC ####[address] [address] ALT [Catalytic activity/Vol] 11 U/L Normal 10-49 [facility] Comment on above: Performed By: #### C MP, ADIFF, ANEU, GFR, CBC ####[address] [address] AST [Catalytic activity/Vol] 19 U/L Normal 8-34 [facility] Comment on above: Performed By: #### C MP, ADIFF, ANEU, GFR, CBC ####[place] [address] Bili Total 1.50 mg/dL High 0.20-1.20 [facility] Comment on above: Result Comment: Use of this assay is not recommended for patients undergoing treatment with eltrombopag due to the potential for falsely elevated results. Performed By: #### C MP, ADIFF, ANEU, GFR, CBC ####[place] [address] BUN/Creatinine Ratio 22.9 ratio High 10.0-22.0 [facility] Comment on above: Performed By: #### C MP, ADIFF, ANEU, GFR, CBC ####[place] [address] Calcium [Mass/Vol] 8.7 mg/dL Normal 8.7-10.4 [facility] Comment on above: Performed By: #### C MP, ADIFF, ANEU, GFR, CBC ####[place] [id number] Chloride [Moles/Vol] 107 mmol/L Normal 98-110 [facility] Comment on above: Performed By: #### C MP, ADIFF, ANEU, GFR, CBC ####[place] [id number] CO2 [Moles/Vol] 29 mmol/L Normal 22-32 [facility] Comment on above: Performed By: #### C MP, ADIFF, ANEU, GFR, CBC ####[place] [address] Creatinine [Mass/Vol] 0.48 mg/dL Low 0.50-1.20 [facility] Comment on above: Result Comment: Test ing performed on [employer] analyzer using enzymatic creatinine methodology. Performed By: #### C MP, ADIFF, ANEU, GFR, CBC ####[address] [address] Electrolyte Balance 8.0 mEq/L Normal 4.0-15.0 [facility] Comment on above: Performed By: #### C MP, ADIFF, ANEU, GFR, CBC ####[address] [address] Globulin 3.6 G/dL Normal 1.5-3.8 [facility] Comment on above: Performed By: #### C MP, ADIFF, ANEU, GFR, CBC ####[address] [address] Glucose [Mass/Vol] 119 mg/dL High 82-115 [facility] Comment on above: Performed By: #### C MP, ADIFF, ANEU, GFR, CBC ####[address] [address] Potassium [Moles/Vol] 3.5 mmol/L Normal 3.5-5.0 [facility] Comment on above: Performed By: #### C MP, ADIFF, ANEU, GFR, CBC ####[address] [address] Sodium [Moles/Vol] 144 mmol/L Normal 136-145 [facility] Comment on above: Performed By: #### C MP, ADIFF, ANEU, GFR, CBC ####[address] [address] Total Protein 5.7 G/dL Normal 5.7-8.2 [facility] Comment on above: Performed By: #### C MP, ADIFF, ANEU, GFR, CBC ####[address] [address] Urea nitrogen [Mass/Vol] 11.0 mg/dL Normal 8.0-22.0 [facility] Comment on above: Performed By: #### C MP, ADIFF, ANEU, GFR, CBC ####[place] [id number] [place] [address] CT THORAX W/ CONTRASTon 11-0 CT THORAX W/ CONTRAST ORIGINAL EXAMINATION: CT OF THE CHEST WITH STSSZUFE25/7/2024 9:20 pm TECHNIQUE: CT of the chest was performed with the administration of intravenous contrast. Multiplanar reformatted images are provided for review. Automated exposure control, iterative reconstruction, and/or weight based adjustment of the mA/kV was utilized to reduce the radiation dose to as low as reasonably achievable. COMPARISON: CTA chest 06/03/2022. CTA abdomen pelvis 12/31/2023. HISTORY: ORDERING SYSTEM PROVIDED HISTORY: Reason for Exam: Abnormal CT, evaluate consolidation Abnormal CT, evaluate consolidation FINDINGS: Heart: The heart is normal in size. There is no pericardial effusion. Multivessel coronary artery atherosclerotic calcifications. Vasculature: Nonaneurysmal thoracic aorta with mild scattered atherosclerotic plaque. The main pulmonary artery is dilated measuring 3.0 cm in diameter. Lymph nodes and mediastinum: Left hilar adenopathy is present. A claims customer service representative left hilar lymph node measures 1.4 cm (series 2, image 36). No axillary, mediastinal, or right hilar lymphadenopathy by size criteria. Thyroid: 1.7 cm right thyroid lobe nodule. Lungs and Pleura: The trachea and right mainstem bronchus is patent. There is soft tissue density seen at the proximal portion of the left inferior lobe bronchus with resultant postobstructive atelectasis of most of the left lower lobe. There is some areas of lower lobe aeration medially. There is a left upper lobe pulmonary nodule measuring 3 mm (series 4, image 40), these findings require no further follow-up per Rosita criteria. Minimal right basilar atelectasis. No pleural effusion or pneumothorax. Upper Abdomen: Limited images of the upper abdomen demonstrate no acute abnormality. Right renal cyst. Please refer to CTA abdomen pelvis 12/31/2023. Bones: No acute osseous abnormality. Right greater than left glenohumeral joint degenerative changes. Mild degenerative changes are present in the spine. Superficial Soft Tissues: No acute soft tissue abnormality. IMPRESSION: Soft tissue density at the proximal portion of the left inferior lobe bronchus results in atelectasis of most of the left lower lobe. Findings are indeterminate and may represent mucous plugging versus bronchogenic neoplasm, consider bronchoscopy if clinically warranted. Left hilar adenopathy. Findings may be reactive versus neoplastic. Recommend attention on follow-up. Dilated main pulmonary artery, findings may be seen with pulmonary hypertension. 1.7 cm right thyroid lobe nodule. Recommend nonemergent thyroid ultrasound for further evaluation. I have personally reviewed the images of this examination and agree with the resident's findings and interpretation. Interpreted by: Brayden Davis Preliminary Report By: Nithin Ling Electronically signed By Brayden Davis Dictated Date: 01/01/2024 9:41:44 PM Prelim Date: 01/01/2024 10:04:59 PM Sign Date: 01/01/2024 10:13:06 PM Ordering Provider: KIMBERLY Mercado [facility] 01-01-2024 Hematocrit (Bld) [Volume fraction] 25.2 % Low 34.0-46.0 [facility] Comment on above: Performed By: #### H H ####[address] [address] Hgb 8.3 G/dL Low 12.0-16.0 [facility] Comment on above: Performed By: #### H H ####[address] [address] Hematocrit (Bld) [Volume fraction] 27.8 % Low 34.0-46.0 [facility] Comment on above: Performed By: #### H H ####[address] [address] Hgb 9.2 G/dL Low 12.0-16.0 [facility] Comment on above: Performed By: #### H H ####[address] [address] Hematocrit (Bld) [Volume fraction] 26.5 % Low 34.0-46.0 [facility] Comment on above: Performed By: #### H H #### [address] [address] Hgb 8.5 G/dL Low 12.0-16.0 [facility] Comment on above: Performed By: #### H H #### [address] [address] Hematocrit (Bld) [Volume fraction] 26.0 % Low 34.0-46.0 [facility] Comment on above: Performed By: #### H H ####[place] [address] Hgb 8.5 G/dL Low 12.0-16.0 [facility] Comment on above: Performed By: #### H H ####[place] [address] LABORATORYOrdered By: SYSTEM SYSTEM on 01-01-2024 Albumin BCP dye [Mass/Vol] 2.1 G/dL Low 3.2 - 4.8 G/dL ADM SS Albumin/Globulin [Mass ratio] 0.6 {ratio} Low 0.9 - 1.6 ratio ADM SS ALP [Catalytic activity/Vol] 174 U/L High 38 - 126 U/L ADM SS ALT No additional P-5'-P [Catalytic activity/Vol] 11 U/L Normal 10 - 49 U/L ADM SS AST [Catalytic activity/Vol] 19 U/L Normal 8 - 34 U/L ADM SS Basophils (Bld) [#/Vol] 0.1 103/mcL Normal 0.0 - 0.3 10^3/mcL Workflow SS Basophils/100 WBC (Bld) 0.6 % Normal 0.0 - 2.5 % Workflow SS Bilirubin [Mass/Vol] 1.50 mg/dL High 0.20 - 1.20 mg/dL ADM SS Comment on above: Interpretive Data: U se of this assay is not recommended for patients undergoing treatment with eltrombopag due to the potential for falsely elevated results. Calcium [Mass/Vol] 8.7 mg/dL Normal 8.7 - 10. 4 mg/dL ADM SS Carcinoembryonic Ag [Mass/Vol] 2.4 ng/mL Normal 0.0 - 3.0 ng/mL ADM SS Comment on above: Interpretive Data: C EA Reference Range for SMOKERS: 0.0 - 5.0 ng/mL. Testing performed on the [employer] IM analyzer using direct chemiluminesent technology. Patient results determined by assays using different manufacturers for methods may not be comparable. Chloride [Moles/Vol] 107 mmol/L Normal 98 - 11 0 mEq/L AH ADM SS CO2 [Moles/Vol] 29 mmol/L Normal 22 - 32 mEq/L ADM SS Creatinine [Mass/Vol] 0.48 mg/dL Low 0.50 - 1.20 mg/dL ADM SS Comment on above: Interpretive Data: T esting performed on [employer] analyzer using enzymatic creatinine methodology. Electrolyte Balance 8.0 mEq/L Normal 4.0 - 15 .0 mEq/L ADM SS Eosinophils (Bld) [#/Vol] 0.3 103/mcL Normal 0.0 - 0.7 10^3/mcL Workflow SS Eosinophils/100 WBC (Bld) 2.3 % Normal 0.0 - 6.0 % Workflow SS Erythrocyte distribution width (RBC) [Ratio] 16.0 % High 11.5 - 15.5 % Workflow SS GFR/1.73 sq M.predicted among blacks MDRD (S/P/Bld) [Vol rate/Area] ml/min/1.73sqm Invalid Interpretation Code [facility] S Comment on above: Interpretive Data: GFR Population mean for , Non- Americans Ages 20-29 = 116 mL/min/1.73 sq.m. Ages 30-39 = 107 mL/min/1.73 sq.m. Ages 40-49 = 99 mL/min/1.73 sq.m. Ages 50-59 = 93 mL/min/1.73 sq.m. Ages 60-69 = 85 mL/min/1.73 sq.m. Ages 70+ = 75 mL/min/1.73 sq.m. Chronic Kidney Disease: Less than 60 mL/min/1.73 square meters End Stage Renal Disease: Less than 15 mL/min/1.73 square meters GFR/1.73 sq M.predicted among non-blacks MDRD (S/P/Bld) [Vol rate/Area] ml/min/1.73sqm Invalid Interpretation Code [employer] S Comment on above: Interpretive Data: GFR Population mean for , Non- Americans Ages 20-29 = 116 mL/min/1.73 sq.m. Ages 30-39 = 107 mL/min/1.73 sq.m. Ages 40-49 = 99 mL/min/1.73 sq.m. Ages 50-59 = 93 mL/min/1.73 sq.m. Ages 60-69 = 85 mL/min/1.73 sq.m. Ages 70+ = 75 mL/min/1.73 sq.m. Chronic Kidney Disease: Less than 60 mL/min/1.73 square meters End Stage Renal Disease: Less than 15 mL/min/1.73 square meters Globulin 3.6 G/dL Normal 1.5 - 3.8 G/dL AH ADM SS Glucose [Mass/Vol] 119 mg/dL High 82 - 115 mg/dL AH ADM SS Lymphocytes (Bld) [#/Vol] 2.3 103/mcL Normal 0.9 - 4.3 10^3/mcL AH Workflow SS Lymphocytes/100 WBC (Bld) 16.9 % Low 20.0 - 40.0 % AH Workflow SS MCH (RBC) [Entitic mass] 26.6 pg Low 27. 0 - 33.0 pg AH Workflow SS MCHC 33.4 G/dL Normal 32.0 - 36.0 G/dL AH Workflow SS MCV (RBC) [Entitic vol] 79.7 fL Low 80.0 - 99.0 fL AH Workflow SS Monocytes (Bld) [#/Vol] 1.2 103/mcL Normal 0.1 - 1.4 10^3/mcL AH Workflow SS Monocytes/100 WBC (Bld) 9.1 % Normal 2.0 - 13.0 % AH Workflow SS Neutrophils (Bld) [#/Vol] 9.5 103/mcL High 2.3 - 8.1 10^3/mcL AH Workflow SS Neutrophils/100 WBC (Bld) 71.1 % Normal 50.0 - 75.0 % AH Workflow SS Platelet mean volume (Bld) [Entitic vol] 7.5 fL Normal 6.6 - 10.5 fL AH Workflow SS Platelets (Bld) [#/Vol] 525 103/mcL High 150 - 450 10^3/mcL AH Workflow SS Potassium [Moles/Vol] 3.5 mmol/L Normal 3.5 - 5.0 mEq/L AH ADM SS Protein [Mass/Vol] 5.7 G/dL Normal 5.7 - 8.2 G/dL AH ADM SS RBC (Bld) [#/Vol] 3.42 106/mcL Low 4.10 - 5.30 10^6/mcL AH Workflow SS Sodium [Moles/Vol] 144 mmol/L Normal 136 - 145 mEq/L ADM SS Troponin I.cardiac DL <= 0.01 ng/mL [Mass/Vol] 3 ng/L Normal 0 - 34 ng/L ADM Comment on above: Interpretive Data: High Sensitive Troponin I Reference Ranges: Female: 0-34 ng/L Male: 0-54 ng/L Testing performed on [employer] IM analyzer using direct chemiluminescent technology. Urea nitrogen [Mass/Vol] 11.0 mg/dL Normal 8.0 - 22.0 mg/dL ADM SS Urea nitrogen/Creatinine [Mass ratio] 22.9 ratio High 10.0 - 22.0 ratio ADM SS WBC (Bld) [#/Vol] 13.4 103/mcL High 4.5 - 10.8 10^3/mcL Workflow SS Troponin I.cardiac DL <= 0.01 ng/mL [Mass/Vol] 3 ng/L Normal 0 - 34 ng/L [facility] Comment on above: Interpretive Data: High Sensitive Troponin I Reference Ranges: Female: 0-34 ng/L Male: 0-54 ng/L Testing performed on [facility] IM analyzer using direct chemiluminescent technology. [facility] 01-01-2024 High Sensitivity Troponin I 3 ng/L Normal 0-34 [facility] Comment on above: Result Comment: High Sensitive Troponin I Reference Ranges: Female: 0-34 ng/L Male: 0-54 ng/L Testing performed on [facility] IM analyzer using direct chemiluminescent technology. Performed By: #### T MISHA ####[place] [address] High Sensitivity Troponin I 3 ng/L Normal 0-34 [facility] Comment on above: Result Comment: High Sensitive Troponin I Reference Ranges: Female: 0-34 ng/L Male: 0-54 ng/L Testing performed on [facility] IM analyzer using direct chemiluminescent technology. Performed By: #### T DIGNA ####[place] [address] .Auto Diffon 12-31-2023 Basophil, Absolute 0.0 10 3/mcL Normal 0.0-0.2 [facility] Comment on above: Performed By: #### C MP, MDW, CBC, LIP, GFR, ANEU, ADIFF #### [address] [address] Basophils/100 WBC (Bld) 0.3 % Normal 0.0-2.5 [facility] Comment on above: Performed By: #### C MARIAMA VILLALOBOS, CBC, LIP, GFR, ANEU, ADIFF #### [address] [address] Eosinophil, Absolute 0.2 10 3/mcL Normal 0.0-0.7 [facility] Comment on above: Performed By: #### C MARIAMA VILLALOBOS, CBC, LIP, GFR, ANEU, ADIFF #### [address] [address] Eosinophils/100 WBC (Bld) 2.1 % Normal 0.0-7.0 [facility] Comment on above: Performed By: #### C MARIAMA VILLALOBOS, CBC, LIP, GFR, ANEU, ADIFF #### [address] [address] Lymphocyte, Absolute 2.2 10 3/mcL Normal 0.9-4.3 [facility] Comment on above: Performed By: #### C MARIAMA VILLALOBOS, CBC, LIP, GFR, ANEU, ADIFF #### [address] [address] Lymphocytes/100 WBC (Bld) 18.9 % Low 20.0-40.0 [facility] Comment on above: Performed By: #### C MARIAMA VILLALOBOS, CBC, LIP, GFR, ANEU, ADIFF #### [address] [address] Monocyte, Absolute 0.8 10 3/mcL Normal 0.1-1.4 [facility] Comment on above: Performed By: #### C MARIAMA VILLALOBOS, CBC, LIP, GFR, ANEU, ADIFF #### [address] [address] Monocytes/100 WBC (Bld) 6.4 % Normal 2.0-13.0 [facility] Comment on above: Performed By: #### C MARIAMA VILLALOBOS, CBC, LIP, GFR, ANEU, ADIFF #### [place] [id number] [place], [place] [address] Neutrophils/100 WBC (Bld) 72.3 % Normal 50.0-75.0 [facility] Comment on above: Performed By: #### C MARIAMA VILLALOBOS, CBC, LIP, GFR, ANEU, ADIFF #### [place] [id number] [place], [place] [address] .GFRon 12-31-2023 GFR 95 ml/min/1.73sqm Normal [facility] Comment on above: Result Comment: GFR Population mean for , Non- Americans Ages 20-29 = 116 mL/min/1.73 sq.m. Ages 30-39 = 107 mL/min/1.73 sq.m. Ages 40-49 = 99 mL/min/1.73 sq.m. Ages 50-59 = 93 mL/min/1.73 sq.m. Ages 60-69 = 85 mL/min/1.73 sq.m. Ages 70+ = 75 mL/min/1.73 sq.m. Chronic Kidney Disease: Less than 60 mL/min/1.73 square meters End Stage Renal Disease: Less than 15 mL/min/1.73 square meters Performed By: #### C MARIAMA VILLALOBOS, CBC, LIP, GFR, ANEU, ADIFF #### [place] [id number] [place], [place] [address] GFR Non- 78 ml/min/1.73sqm Normal [facility] Comment on above: Result Comment: GFR Population mean for , Non- Americans Ages 20-29 = 116 mL/min/1.73 sq.m. Ages 30-39 = 107 mL/min/1.73 sq.m. Ages 40-49 = 99 mL/min/1.73 sq.m. Ages 50-59 = 93 mL/min/1.73 sq.m. Ages 60-69 = 85 mL/min/1.73 sq.m. Ages 70+ = 75 mL/min/1.73 sq.m. Chronic Kidney Disease: Less than 60 mL/min/1.73 square meters End Stage Renal Disease: Less than 15 mL/min/1.73 square meters Performed By: #### C MARIAMA VILLALOBOS, CBC, LIP, GFR, ANEU, ADIFF #### [address] [address] .MDWon 12-31-2023 Monocyte Distribution Width 18.46 Normal 0.00-20.00 [facility] Comment on above: Result Comment: For ED adult patients suspected of sepsis, MDW<=20.0 does not rule out sepsis or risk of sepsis Performed By: #### C MARIAMA VILLALOBOS, CBC, LIP, GFR, ANEU, ADIFF #### [address] [address] .NEUABSon 12-31-2023 Neutrophil, Absolute 8.6 10 3/mcL High 2.3-8.1 [facility] Comment on above: Performed By: #### C MARIAMA VILLALOBOS, CBC, LIP, GFR, ANEU, ADIFF #### [address] [address] ABO/Rh (Gel)on 12-31-2023 ABO/Rh Interp Positive Invalid Interpretation Code [facility] Comment on above: Performed By: #### A KAIDEN GUAMAN #### [place] [address] ABO/Rh Interp Positive Invalid Interpretation Code [facility] Comment on above: Performed By: #### C MARIAMA VILLALOBOS, CBC, LIP, GFR, ANEU, ADIFF #### [address] [address] ABS (Gel)on 12-31-2023 ABSC Interp (Gel) Negative Normal [facility] Comment on above: Performed By: #### A KAIDEN GUAMAN #### [place] [address] ABSC Interp (Gel) Negative Normal [facility] Comment on above: Performed By: #### C MARIAMA VILLALOBOS, CBC, LIP, GFR, ANEU, ADIFF #### [address] [address] APTTon 12-31-2023 aPTT Coag (Bld) [Time] 71.5 s High 25.0-35.0 [facility] Comment on above: Result Comment: For Heparin anticoagulation therapy, the recommended therapeutic range is: 45.4-75.9 seconds. Patients on heparin therapy may have an extreme result. Performed By: #### C MARIAMA VILLALOBOS, CBC, LIP, GFR, ANEU, ADIFF #### [place] [address] CBCon 12-31-2023 Erythrocyte distribution width (RBC) [Ratio] 15.4 % Normal 11.5-15.5 [facility] Comment on above: Performed By: #### C MARIAMA VILLALOBOS, CBC, LIP, GFR, ANEU, ADIFF #### [place] [address] Hematocrit (Bld) [Volume fraction] 26.7 % Low 34.0-46.0 [facility] Comment on above: Performed By: #### C MARIAMA VILLALOBOS, CBC, LIP, GFR, ANEU, ADIFF #### [place] [address] Hgb 8.6 G/dL Low 12.0-16.0 [facility] Comment on above: Performed By: #### C MARIAMA VILLALOBOS, CBC, LIP, GFR, ANEU, ADIFF #### [place] [address] MCH (RBC) [Entitic mass] 25.8 pg Low 27.0-33.0 [facility] Comment on above: Performed By: #### C MARIAMA VILLALOBOS, CBC, LIP, GFR, ANEU, ADIFF #### [place] [address] MCHC 32.3 G/dL Normal 32.0-36.0 [facility] Comment on above: Performed By: #### C MARIAMA VILLALOBOS, CBC, LIP, GFR, ANEU, ADIFF #### [place] [address] MCV (RBC) [Entitic vol] 79.8 fL Low 80.0-99.0 [facility] Comment on above: Performed By: #### C MARIAMA VILLALOBOS, CBC, LIP, GFR, ANEU, ADIFF #### [address] [address] Platelet 570 10 3/mcL High 150-450 [facility] Comment on above: Performed By: #### C MARIAMA VILLALOBOS, CBC, LIP, GFR, ANEU, ADIFF #### [address] [address] Platelet mean volume (Bld) [Entitic vol] 6.7 fL Normal 6.6-10.5 [facility] Comment on above: Performed By: #### C MARIAMA VILLALOBOS, CBC, LIP, GFR, ANEU, ADIFF #### [address] [address] RBC 3.34 10 6/mcL Low 4.10-5.30 [facility] Comment on above: Performed By: #### C MARIAMA VILLALOBOS, CBC, LIP, GFR, ANEU, ADIFF #### [address] [address] WBC 11.9 10 3/mcL High 4.5-10.8 [facility] Comment on above: Performed By: #### C MARIAMA VILLALOBOS, CBC, LIP, GFR, ANEU, ADIFF #### [address] [address] CKon 12-31-2023 CK [Catalytic activity/Vol] 29 U/L Normal 7-185 [facility] Comment on above: Performed By: #### M G, CK, PHOS, TROPHS ####[facility] [place] [id number] CMPon 12-31-2023 ALT [Catalytic activity/Vol] 17 U/L Normal 14-59 [facility] Comment on above: Performed By: #### C MARIAMA VILLALOBOS, CBC, LIP, GFR, ANEU, ADIFF #### [address] [address] Albumin Level 2.1 G/dL Low 3.4-4.8 [facility] Comment on above: Performed By: #### C MARIAMA VILLALOBOS, CBC, LIP, GFR, ANEU, ADIFF #### [address] [address] Albumin/Globulin [Mass ratio] 0.5 {ratio} Low 1.1-2.5 [facility] Comment on above: Performed By: #### C MARIAMA VILLALOBOS, CBC, LIP, GFR, ANEU, ADIFF #### [address] [address] ALP [Catalytic activity/Vol] 173 U/L High 40-135 [facility] Comment on above: Performed By: #### C MARIAMA VILLLAOBOS, CBC, LIP, GFR, ANEU, ADIFF #### [address] [address] AST [Catalytic activity/Vol] 20 U/L Normal 10-40 [facility] Comment on above: Performed By: #### C MARIAMA VILLALOBOS, CBC, LIP, GFR, ANEU, ADIFF #### [address] [address] Bili Total 0.4 mg/dL Normal 0.2-1.0 [facility] Comment on above: Result Comment: Use of this assay is not recommended for patients undergoing treatment with eltrombopag due to the potential for falsely elevated results. Performed By: #### C MARIAMA VILLALOBOS, CBC, LIP, GFR, ANEU, ADIFF #### [address] [address] BUN/Creatinine Ratio 21 ratio Normal 7-27 [facility] Comment on above: Performed By: #### C MARIAMA VILLALOBOS, CBC, LIP, GFR, ANEU, ADIFF #### [address] [address] Calcium [Mass/Vol] 8.2 mg/dL Low 8.4-10.2 [facility] Comment on above: Performed By: #### C MARIAMA VILLALOBOS, CBC, LIP, GFR, ANEU, ADIFF #### [address] [address] Chloride [Moles/Vol] 104 mmol/L Normal 98-107 [facility] Comment on above: Performed By: #### C MARIAMA VILLALOBOS, CBC, LIP, GFR, ANEU, ADIFF #### [place] [address] CO2 [Moles/Vol] 28 mmol/L Normal 23-31 [facility] Comment on above: Performed By: #### C MARIAMA VILLALOBOS, CBC, LIP, GFR, ANEU, ADIFF #### [place] [address] Creatinine [Mass/Vol] 0.72 mg/dL Normal 0.55-1.02 [facility] Comment on above: Result Comment: Test ing performed on [employer] EXL analyzer using a modified kinetic Martha technique. Performed By: #### C MARIMAA VILLALOBOS, CBC, LIP, GFR, ANEU, ADIFF #### [place] [address] Electrolyte Balance 8.0 mEq/L Normal 4.0-15.0 [facility] Comment on above: Performed By: #### C MARIAMA VILLALOBOS, CBC, LIP, GFR, ANEU, ADIFF #### [place] [address] Globulin 3.9 G/dL Normal [facility] Comment on above: Performed By: #### C MARIAMA VILLALOBOS, CBC, LIP, GFR, ANEU, ADIFF #### [place] [address] Glucose [Mass/Vol] 258 mg/dL High 83-110 [facility] Comment on above: Performed By: #### C MARIAMA VILLALOBOS, CBC, LIP, GFR, ANEU, ADIFF #### [place] [address] Potassium [Moles/Vol] 3.6 mmol/L Normal 3.5-5.1 [facility] Comment on above: Performed By: #### C MARIAMA VILLALOBOS, CBC, LIP, GFR, ANEU, ADIFF #### [address] [address] Sodium [Moles/Vol] 140 mmol/L Normal 136-145 [facility] Comment on above: Performed By: #### C MARIAMA VILLALOBOS, CBC, LIP, GFR, ANEU, ADIFF #### [place] [id number] [place], [place] [address] Total Protein 6.0 G/dL Low 6.4-8.2 [facility] Comment on above: Performed By: #### C MARIAMA VILLALOBOS, CBC, LIP, GFR, ANEU, ADIFF #### [place] [id number] [place], [place] [address] Urea nitrogen [Mass/Vol] 15 mg/dL Normal 7-18 [facility] Comment on above: Performed By: #### C MARIAMA VILLALOBOS, CBC, LIP, GFR, ANEU, ADIFF #### [place] [id number] [place], [place] [address] CT ANGIO GI BLEEDon 12-31-[address] ANGIO GI BLEED ORIGINAL EXAMINATION: CTA OF THE ABDOMEN AND PELVIS WITH CONTRAST 12/31/2023 8:27 pm: TECHNIQUE: CTA of the abdomen and pelvis was performed with the administration of intravenous contrast. Multiplanar reformatted images are provided for review. MIP images are provided for review. Automated exposure control, iterative reconstruction, and/or weight based adjustment of the mA/kV was utilized to reduce the radiation dose to as low as reasonably achievable. 3D surface rendering or volume rendering reconstructions were performed. COMPARISON: CTA chest 06/03/2022 HISTORY: ORDERING SYSTEM PROVIDED HISTORY: Reason for Exam: BLOOD IN STOOL, ANEMIA Lower GI bleed FINDINGS: Lower thorax demonstrates moderate consolidation of the left lower lobe. Correlation clinical findings and follow-up CT thorax may be useful. The liver demonstrates no biliary duct dilatation or gross mass. At the anteromedial left hepatic lobe, there is an small slightly exophytic vascular malformation, possibly hemangioma, measuring approximately 2 x 1.5 cm.. Finding was not as well visualized on the prior study. The gallbladder demonstrates no calcified gallstones or gross wall thickening. The pancreas demonstrates no evidence of mass, ductal dilatation, or inflammatory process. There are few pancreatic minimal calcifications, possibly sequela of remote inflammatory or granulomatous process. Spleen is normal in size. Adrenal glands are normal in size. The kidneys demonstrate no hydronephrosis or renal calculi. There are small bilateral renal cortical hypodense CIS. Ureters are normal in caliber bilaterally. Aorta is normal in caliber without acute abnormality. There are a few calcified plaques of the aorta. The proximal celiac axis is patent. Superior mesenteric artery and proximal branches are patent. Bilateral renal arteries are patent Inferior mesenteric artery is patent. Bilateral iliac arterial systems are patent. Stomach and duodenal sweep demonstrate no acute abnormality. Small bowel and colon are normal in caliber. There is no gross intraluminal contrast extravasation of the stomach, small bowel, or colon, to suggest active gastrointestinal hemorrhage. At the cecum and proximal ascending colon, there is diffuse wall thickening with heterogeneous enhancement possibly inflammatory/infectious process versus neoplastic process. Correlation clinical finding GI consult would be useful. There are multiple mildly enlarged nodes at the right abdomen, adjacent the proximal colon. The appendix is not discretely visualized. There is no gross pericecal mass or inflammatory process. Urinary bladder is within normal limits. Uterus demonstrates small exophytic nodules compatible with fibroids, and calcifications. Bilateral ovaries are grossly normal size. There is no pelvic free fluid. Osseous structures are intact with degenerative changes. At the L4 vertebral body, there is a nonspecific 1.4 cm sclerotic lesion, possibly bone island although metastasis cannot be excluded in patient with history of neoplastic disease. IMPRESSION: 1. No gross intraluminal contrast extravasation of the stomach, small bowel, or colon, to suggest active gastrointestinal hemorrhage. 2. At the cecum and proximal ascending colon, there is diffuse wall thickening with heterogeneous enhancement possibly inflammatory/infectious process versus neoplastic process. Correlation clinical finding GI consult would be useful. There are multiple mildly enlarged nodes at the right abdomen, adjacent the proximal colon. 3. Lower thorax demonstrates moderate consolidation of the left lower lobe. Correlation clinical findings and follow-up CT thorax may be useful. 4. At the anteromedial left hepatic lobe, there is an small slightly exophytic vascular malformation, possibly hemangioma, measuring approximately 2 x 1.5 cm. Finding was not as well visualized on the prior study. 5. At the L4 vertebral body, there is a nonspecific 1.4 cm sclerotic lesion, possibly bone island although metastasis cannot be excluded in patient with history of neoplastic disease. Nuclear medicine bone scan or PET-CT study may be useful for further evaluation, if clinically indicated. Interpreted by: Trell Lyn Preliminary Report By: Trell Lyn Electronically signed By Trell Lyn Dictated Date: 12/31/2023 8:30:08 PM Prelim Date: 12/31/2023 8:52:17 PM Sign Date: 12/31/2023 8:52:17 PM Ordering Provider: AMY Mercado [facility] HGBon 12-31-2023 Hgb 7.5 G/dL Low 12.0-16.0 [facility] Comment on above: Performed By: #### C MP, MDW, CBC, LIP, GFR, ANEU, ADIFF #### [facility] [address] [address] LABORATORYOrdered By: Jahaira Colvin on 12-31-2023 Appearance (U) Clear (12/31/23 11:10 PM) Normal Clear AH Auto Urine SS Bacteria LM.HPF (Urine sed) [#/Area] 1 /[HPF] Invalid Interpretation Code Negative AH Auto Urine SS Bilirubin Ql (U) Negative (12/31/23 11:10 PM) Normal Neg-Trace AH Auto Urine SS Color (U) Yellow (12/31/23 11:10 PM) Normal AH Auto Urine SS Glucose Test strip (U) [Mass/Vol] Negative Normal Negative AH Auto Urine SS Hemoglobin Auto test strip (U) [Mass/Vol] Negative (12/31/23 11:10 PM) Normal Neg-Trace AH Auto Urine SS Ketones Ql (U) Negative Normal Neg-Trace AH Auto Urine SS UA Leuk Est Trace *NA* (12/31/23 11:10 PM) Invalid Interpretation Code Negative AH Auto Urine SS UA Nitrite Positive *ABN* (12/31/23 11:10 PM) Invalid Interpretation Code Negative AH Auto Urine SS UA pH 7.0 (12/31/23 11:10 PM) Normal 5.0 - 8.0 AH Auto Urine SS UA Protein Negative Normal Negative AH Auto Urine SS UA RBC Negative Normal 0-2 AH Auto Urine SS UA Spec Grav >=1.030 *ABN* (12/31/23 11:10 PM) Invalid Interpretation Code 1.006-1.02 9 AH Auto Urine SS UA Specimen Type Clean Catch (12/31/23 11:10 PM) Normal AH Auto Urine SS UA Squam Epithelial Rare /HPF Normal 0-20 AH Au to Urine SS UA Urobilinogen 0.2 E.U./dL Normal 0.2-1.0 AH Auto Urine SS WBC LM.HPF (Urine sed) [#/Area] Rare /HPF Normal 0-5 AH Auto Urine SS LABORATORYOrdered By: Ana kaba on 12-31-2023 ABO and Rh group Nom (Bld) Blood group A Rh(D) positive Invalid Interpretation Code AH BB Auto SS Blood group antibody screen Ql Negative ABSC (12/31/23 6:21 PM) Normal AH BB Auto SS RBC Product Ready RBC Ready for Pickup (12/31/23 6:07 PM) Normal AH BB Manual SS LABORATORYOrdered By: SYSTEM SYSTEM on 12-31-2023 CK [Catalytic activity/Vol] 29 U/L Normal 7 - 185 U/L AH ADM SS Magnesium [Mass/Vol] 1.6 mg/dL Normal 1.6 - 2 .4 mg/dL AH ADM SS Phosphate [Mass/Vol] 2.8 mg/dL Normal 2.4 - 5 .1 mg/dL AH ADM SS Comment on above: Interpretive Data: * *Note - New Reference Range in effect 19 Troponin I.cardiac DL <= 0.01 ng/mL [Mass/Vol] ng/L Normal 0 - 34 ng/L AH ADM SS Comment on above: Interpretive Data: High Sensitive Troponin I Reference Ranges: Female: 0-34 ng/L Male: 0-54 ng/L Testing performed on S[employer] IM analyzer using direct chemiluminescent technology. Hemoglobin (Bld) [Mass/Vol] 7.5 G/dL Low 12.0 - 16.0 G/dL AO Workflow SS INR Coag (PPP) [Relative time] 1.5 {INR} Invalid Interpretation Code AO HemoHub SS Comment on above: Interpretive Data: Clinton banegas [employer] (CHEST, 1991, 102:312S-25S) recommended therapeutic range for oral anticoagulant therapy is: LOW RISK: Prophylaxis of venous thrombosis INR: 2.0-3.0 Treatment of pulmonary embolism 2.0-3.0 Prevention of systemic embolism 2.0-3.0 HIGH RISK: Mechanical prosthetic valves 2.5-3.5 PT Coag (PPP) [Time] 17.5 s High 9.0 - 1 4.4 seconds AO HemoHub SS Albumin BCP dye [Mass/Vol] 2.1 G/dL Low 3.4 - 4.8 G/dL AO ADM SS Albumin/Globulin [Mass ratio] 0.5 {ratio} Low 1.1 - 2.5 ratio AO ADM SS ALP [Catalytic activity/Vol] 173 U/L High 40 - 135 U/L AO ADM SS ALT With P-5'-P [Catalytic activity/Vol] 17 U/L Normal 14 - 59 U/L AO ADM SS aPTT Coag (PPP) [Time] 71.5 s High 25.0 - 35.0 seconds AO HemoHub SS Comment on above: Interpretive Data: F or Heparin anticoagulation therapy, the recommended therapeutic range is: 45.4-75.9 seconds. Patients on heparin therapy may have an extreme result. AST With P-5'-P [Catalytic activity/Vol] 20 U/L Normal 10 - 40 U/L AO ADM SS Basophils (Bld) [#/Vol] 0.0 103/mcL Normal 0.0 - 0.2 10^3/mcL AO Workflow SS Basophils/100 WBC (Bld) 0.3 % Normal 0.0 - 2.5 % AO Workflow SS Bilirubin [Mass/Vol] 0.4 mg/dL Normal 0.2 - 1 .0 mg/dL AO ADM SS Comment on above: Interpretive Data: U se of this assay is not recommended for patients undergoing treatment with eltrombopag due to the potential for falsely elevated results. Calcium [Mass/Vol] 8.2 mg/dL Low 8.4 - 10. 2 mg/dL AO ADM SS Chloride [Moles/Vol] 104 mmol/L Normal 98 - 10 7 mmol/L AO ADM SS CO2 [Moles/Vol] 28 mmol/L Normal 23 - 31 mmol/L AO ADM SS Creatinine [Mass/Vol] 0.72 mg/dL Normal 0.55 - 1.02 mg/dL AO ADM SS Comment on above: Interpretive Data: T esting performed on Siemens Dimension EXL analyzer using a modified kinetic Martha technique. Electrolyte Balance 8.0 mEq/L Normal 4.0 - 15 .0 mEq/L AO ADM SS Eosinophil, Absolute 0.2 103/mcL Normal 0.0 - 0 .7 10^3/mcL AO Workflow SS Eosinophils/100 WBC (Bld) 2.1 % Normal 0.0 - 7.0 % AO Workflow SS Erythrocyte distribution width (RBC) [Ratio] 15.4 % Normal 11.5 - 15.5 % AO Workflow SS GFR/1.73 sq M.predicted among blacks MDRD (S/P/Bld) [Vol rate/Area] 95 ml/min/1.73sqm Invalid Interpretation Code AO Chemistry S Comment on above: Interpretive Data: GFR Population mean for , Non- Americans Ages 20-29 = 116 mL/min/1.73 sq.m. Ages 30-39 = 107 mL/min/1.73 sq.m. Ages 40-49 = 99 mL/min/1.73 sq.m. Ages 50-59 = 93 mL/min/1.73 sq.m. Ages 60-69 = 85 mL/min/1.73 sq.m. Ages 70+ = 75 mL/min/1.73 sq.m. Chronic Kidney Disease: Less than 60 mL/min/1.73 square meters End Stage Renal Disease: Less than 15 mL/min/1.73 square meters GFR/1.73 sq M.predicted among non-blacks MDRD (S/P/Bld) [Vol rate/Area] 78 ml/min/1.73sqm Invalid Interpretation Code AO Chemistry S Comment on above: Interpretive Data: GFR Population mean for , Non- Americans Ages 20-29 = 116 mL/min/1.73 sq.m. Ages 30-39 = 107 mL/min/1.73 sq.m. Ages 40-49 = 99 mL/min/1.73 sq.m. Ages 50-59 = 93 mL/min/1.73 sq.m. Ages 60-69 = 85 mL/min/1.73 sq.m. Ages 70+ = 75 mL/min/1.73 sq.m. Chronic Kidney Disease: Less than 60 mL/min/1.73 square meters End Stage Renal Disease: Less than 15 mL/min/1.73 square meters Globulin 3.9 G/dL Invalid Interpretation Code AO ADM SS Glucose [Mass/Vol] 258 mg/dL High 83 - 110 mg/dL AO ADM SS Hematocrit (Bld) [Volume fraction] 26.7 % Low 34.0 - 46.0 % AO Workflow SS Hemoglobin (Bld) [Mass/Vol] 8.6 G/dL Low 12.0 - 16.0 G/dL AO Workflow SS INR Coag (PPP) [Relative time] 6.1 {INR} Invalid Interpretation Code AO HemoHub SS Comment on above: Interpretive Data: Clinton banegas [employer] (CHEST, 1991, 102:312S-25S) recommended therapeutic range for oral anticoagulant therapy is: LOW RISK: Prophylaxis of venous thrombosis INR: 2.0-3.0 Treatment of pulmonary embolism 2.0-3.0 Prevention of systemic embolism 2.0-3.0 HIGH RISK: Mechanical prosthetic valves 2.5-3.5 Lymphocytes (Bld) [#/Vol] 2.2 103/mcL Normal 0.9 - 4.3 10^3/mcL AO Workflow SS Lymphocytes/100 WBC (Bld) 18.9 % Low 20.0 - 40.0 % AO Workflow SS MCH (RBC) [Entitic mass] 25.8 pg Low 27. 0 - 33.0 pg AO Workflow SS MCHC 32.3 G/dL Normal 32.0 - 36.0 G/dL AO Workflow SS MCV (RBC) [Entitic vol] 79.8 fL Low 80.0 - 99.0 fL AO Workflow SS Monocyte distribution width Auto (Bld) [Entitic vol] 18.46 1 Normal 0.00 - 20.00 AO Workflow SS Comment on above: Result Comment: For ED adult patients suspected of sepsis, MDW<=20.0 does not rule out sepsis or risk of sepsis Monocytes (Bld) [#/Vol] 0.8 103/mcL Normal 0.1 - 1.4 10^3/mcL AO Workflow SS Monocytes/100 WBC (Bld) 6.4 % Normal 2.0 - 13.0 % AO Workflow SS Neutrophils (Bld) [#/Vol] 8.6 103/mcL High 2.3 - 8.1 10^3/mcL AO Workflow SS Neutrophils/100 WBC (Bld) 72.3 % Normal 50.0 - 75.0 % AO Workflow SS Platelet mean volume (Bld) [Entitic vol] 6.7 fL Normal 6.6 - 10.5 fL AO Workflow SS Platelets (Bld) [#/Vol] 570 103/mcL High 150 - 450 10^3/mcL AO Workflow SS Potassium [Moles/Vol] 3.6 mmol/L Normal 3.5 - 5.1 mmol/L AO ADM SS Protein [Mass/Vol] 6.0 G/dL Low 6.4 - 8.2 G/dL AO ADM SS PT Coag (PPP) [Time] 71.5 s High 9.0 - 1 4.4 seconds AO HemoHub SS RBC (Bld) [#/Vol] 3.34 106/mcL Low 4.10 - 5.30 10^6/mcL AO Workflow SS Sodium [Moles/Vol] 140 mmol/L Normal 136 - 145 mmol/L AO ADM SS Troponin I.cardiac DL <= 0.01 ng/mL [Mass/Vol] ng/L Normal 0 - 51 ng/L AO ADM SS Comment on above: Interpretive Data: H igh Sensitive Troponin I Reference Ranges: Female: 0-51 ng/L Male: 0-76 ng/L Testing performed on [employer] using a homogeneous sandwich chemiluminescent immunoassay based on [employer] technology. Urea nitrogen [Mass/Vol] 15 mg/dL Normal 7 - 18 mg/dL AO ADM SS Urea nitrogen/Creatinine [Mass ratio] 21 ratio Normal 7 - 27 ratio AO ADM SS WBC (Bld) [#/Vol] 11.9 103/mcL High 4.5 - 10.8 10^3/mcL AO Workflow SS LABORATORYOrdered By: Mirella Rosenberg on 12-31-2023 ABO and Rh group Nom (Bld) Blood group A Rh(D) positive Invalid Interpretation Code AO BB Auto SS Blood group antibody screen Ql Negative ABSC (12/31/23 5:01 AM) Normal AO BB Auto SS MGon 12-31-2023 Magnesium [Mass/Vol] 1.6 mg/dL Normal 1.6-2.4 [facility] Comment on above: Performed By: #### M G, CK, PHOS, TROPHS ####[address] [address] PHOSon 12-31-2023 Phosphate [Mass/Vol] 2.8 mg/dL Normal 2.4-5.1 [facility] Comment on above: Result Comment: No te - New Reference Range in effect 19 Performed By: #### M G, CK, PHOS, TROPHS ####[address] [address] PROon 12-31-2023 PT Coag (PPP) [Time] 17.5 s High 9.0-14.4 [facility] Comment on above: Performed By: #### C MARIAMA VILLALOBOS, CBC, LIP, GFR, ANEU, ADIFF #### [address] [address] PT International Ratio 1.5 Normal [facility] Comment on above: Result Comment: [employer] (CHEST, 1991, 102:312S-25S) recommended therapeutic range for oral anticoagulant therapy is: LOW RISK: Prophylaxis of venous thrombosis INR: 2.0-3.0 Treatment of pulmonary embolism 2.0-3.0 Prevention of systemic embolism 2.0-3.0 HIGH RISK: Mechanical prosthetic valves 2.5-3.5 Performed By: #### C MARIAMA VILLALOBOS, CBC, LIP, GFR, ANEU, ADIFF #### [address] [address] PT Coag (PPP) [Time] 71.5 s High 9.0-14.4 [facility] Comment on above: Performed By: #### C MARIAMA VILLALOBOS, CBC, LIP, GFR, ANEU, ADIFF #### [address] [address] PT International Ratio 6.1 Criticall y abnormal [facility] Comment on above: Result Comment: [employer] (CHEST, 1991, 102:312S-25S) recommended therapeutic range for oral anticoagulant therapy is: LOW RISK: Prophylaxis of venous thrombosis INR: 2.0-3.0 Treatment of pulmonary embolism 2.0-3.0 Prevention of systemic embolism 2.0-3.0 HIGH RISK: Mechanical prosthetic valves 2.5-3.5 Performed By: #### C MARIAMA VILLALOBOS, CBC, LIP, GFR, ANEU, ADIFF #### [address] [address] RBC (Product)on 12-31-2023 RBC Product Ready RBC Ready for Pickup Normal [facility] Comment on above: Performed By: #### R BCP #### [facility] [address] [place] [address] [facility] High Sensitivity Troponin I <3 Normal 0-34 [facility] Comment on above: Result Comment: High Sensitive Troponin I Reference Ranges: Female: 0-34 ng/L Male: 0-54 ng/L Testing performed on [employer] analyzer using direct chemiluminescent technology. Performed By: #### M G, CK, PHOS, TROPHS ####[place] [address] High Sensitivity Troponin I <4 Normal 0-51 [facility] Comment on above: Result Comment: High Sensitive Troponin I Reference Ranges: Female: 0-51 ng/L Male: 0-76 ng/L Testing performed on Pump[employer] using a homogeneous sandwich chemiluminescent immunoassay based on [employer] technology. Performed By: #### C MPMDW, CBC, LIP, GFR, ANEU, ADIFF #### [facility] [address] [place], [place] [address] UAon 12-31-2023 Color (U) Yellow Normal [facility] Comment on above: Performed By: #### U A, UAMIC ####[place] [address] Glucose (U) [Mass/Vol] Negative Normal Negative [facility] Comment on above: Performed By: #### U A, UAMIC ####[place] [address] Ketones Ql (U) Negative Normal Neg-Trace [facility] Comment on above: Performed By: #### U A, UAMIC ####[place] [address] UA Appear Clear Normal Clear [facility] Comment on above: Performed By: #### U A, UAMIC ####[place] [address] UA Blood Negative Normal Neg-Trace [facility] Comment on above: Performed By: #### U A, UAMIC ####[place] [address] UA Leuk Est Trace Normal Negative [facility] Comment on above: Performed By: #### U A, UAMIC ####[place] [address] UA Nitrite Positive Abnormal Negative [facility] Comment on above: Performed By: #### U A, UAMIC ####[place] [address] UA pH 7.0 Normal 5.0 - 8.0 [facility] Comment on above: Performed By: #### U A, UAMIC ####[place] [address] UA Protein Negative Normal Negative [facility] Comment on above: Performed By: #### U A, UAMIC ####[place] [address] UA Spec Grav >=1.030 Abnormal 1.006-1.02 9 [facility] Comment on above: Performed By: #### U A, UAMIC ####[place] [address] UA Specimen Type Clean Catch Normal [facility] Comment on above: Performed By: #### U A, UAMIC ####[place] [address] UA Urobilinogen 0.2 E.U./dL Normal 0.2-1.0 [facility] Comment on above: Performed By: #### U A, UAMIC ####[place] [address] Urobilinogen (U) [Mass/Vol] Negative Normal Neg-Trace [facility] Comment on above: Performed By: #### U A, UAMIC ####[place] [address] UAMICon 12-31-2023 UA Bacteria 1+ /hpf Abnormal Negative [facility] Comment on above: Performed By: #### U A, UAMIC ####[place] [address] UA RBC Negative Normal 0-2 [facility] Comment on above: Performed By: #### U A, UAMIC ####[place] [address] UA Squam Epithelial Rare Normal 0-20 [facility] Comment on above: Performed By: #### U A, UAMIC ####[facility] [place] [address] UA WBC Rare Normal 0-5 [facility] Comment on above: Performed By: #### U A UAMIC ####[facility] [place] [address] Protime w/INR Fingerstickon 12-25-2023 INR Coag (PPP) [Relative time] 2.7 {INR} Normal [facility] Comment on above: Result Comment: Crit ical Value > 4.0 Performed By: #### L [id number] ####[facility] [id number] [place], [place], [id number] Protime Coagsen 28.4 SEC High 11.7-14.9 [facility] Comment on above: Performed By: #### L [id number] ####[facility] [address] [place], [place], [id number] Urgent Care Visit Reporton 1 Urgent Care Visit Report Normal [facility] Internal Medicine Office Vis iton 11-26-2023 Internal Medicine Office Visit Normal [facility] Protime w/INR Fingerstickon 11-25-2023 INR Coag (PPP) [Relative time] 2.9 {INR} Normal [facility] Comment on above: Result Comment: Crit ical Value > 4.0 Performed By: #### L [id number] ####[facility] [address] [place], [place], [address] Protime Coagsen 29.3 SEC High 11.7-14.9 [facility] Comment on above: Performed By: #### L [id number] ####[facility] [id number] [place], [place], [id number] Protime w/INR Fingerstickon 10-28-2023 INR Coag (PPP) [Relative time] 2.8 {INR} Normal [facility] Comment on above: Result Comment: Crit ical Value > 4.0 Performed By: #### L [id number] ####[facility] [id number] [place], [place], [id number] Protime Coagsen 28.7 SEC High 11.7-14.9 [facility] Comment on above: Performed By: #### L [id number] ####[facility] [id number] [place], [address] Capillary blood internationa l normalized ratio (INR)Ordered By: Cole Cardona on 05-19-2023 INR Coag (BldC) [Relative time] 2.3 [facility] Comment on above: Critical Value > 4.0 Whole blood prothrombin time Ordered By: Cole Cardona on 05-19-2023 PT Coag (Bld) [Time] 24.0 s 11.7-14.9 [facility] CNOVon 05-13-2023 CNOV Office Visit (UCWSTR ) ----- SCOTT TALBERT ([id number]) 1945 F Date Time Provider Department 05/13/23 2:30 PM HEATHER SHAH [facility] During your visit today, we recorded the following information about you: Temperature Pulse Respiration Blood pressure 98.7 degrees 99/minute 18/minute 128/80 Weight 97.1 kg Heather Shah APRN.CNP 05/13/2023 3:23 PM Signed CC: Patient presents with: Cough: Cough x 6-8 weeks Patient was seen here in February for a cough that has not improved. Patient followed up with PCP as well who gave her some kind of inhaler, it was a sample but doesn't feel like it helped at all. Denies any pleuritic chest pain or sinus drainage. HPI: Scott Talbert is a 77 year old female who presents to the office with complaint of cough, nonproductive for months. Symptoms are staying the same. Associated symptoms includes cough. Denies sore throat, nasal congestion, post nasal drip, headache, and dyspnea. Treatments tried include Tesslon Perles, Inhaler (possibly Advair according to patient description of device) with minor relief of symptoms. Sick contacts: no. History of asthma, frequent episodes of bronchitis, chronic bronchitis, bronchiectasis or COPD: No Smoker: No Seasonal/environmental allergies: No The ROS is otherwise negative. The patient's pmh, medications, allergies, and past visits are reviewed. PHYSICAL EXAM: BP 128/80 Pulse 99 Temp 37.1 ?C (98.7 ?F) (Tympanic) Resp 18 Wt 97.1 kg (214 lb 1.1 oz) SpO2 96% General appearance: alert, cooperative, pleasant, in no acute distress Head: Normocephalic Eyes: PERRLA, EOM's intact, conjunctiva pink and moist, no icterus, sclera white, non-injected Ears: Right ear: External ear/canal- Normal, TM - clear with good landmarks. Left ear: External ear/canal- Normal, TM - clear with good landmarks Nose: clear. Oropharynx:moist without lesions, No erythema, exudates or tonsillar hypertrophy. Neck:supple and no adenopathy Heart: Negative. RRR without obvious murmur, gallop, or rubs. No ectopy. Lungs: wheezing diffusely History reviewed. No pertinent past medical history. No past surgical history on file. ALLERGIES Prednisone MEDICATIONS losartan (COZAAR) 50 mg tablet JANTOVEN 1 mg tablet warfarin (COUMADIN) 2 mg tablet Take 1 tablet by mouth every afternoon. venlafaxine (EFFEXOR) 75 mg tablet Take 75 mg by mouth three times a day. MECLIZINE HCL (ANTIVERT ORAL) Take by mouth. albuterol HFA (PROVENTIL HFA, VENTOLIN HFA) 90 mcg/actuation inhaler Inhale 2 Puffs as instructed every 4 hours as needed for Wheezing/Shortness of Breath. (Patient not taking: Reported on 03/17/2023) atorvastatin (LIPITOR) 20 mg ORAL tablet Take 20 mg by mouth once daily. CANDESARTAN CILEXETIL (ATACAND ORAL) Take by mouth. (Patient not taking: Reported on 03/17/2023) CELECOXIB (CELEBREX ORAL) Take by mouth. (Patient not taking: Reported on 03/17/2023) Aspirin 81 mg ORAL Tab Take 81 mg by mouth. (Patient not taking: Reported on 03/17/2023) No family history on file. Social History Tobacco Use Smoking status: Never DATA REVIEWED: Most recent imaging ASSESSMENT/PLAN: 1. Acute cough - ICD9: 786.2, ICD10: R05.1 - Encouraged patient to follow up with PCP to discuss cough being related to ARB medication - Encouraged follow up with ld teacher - XR CHEST 2V FRONTAL/LAT - negative - CONSULT TO PULM Potential red flag symptoms discussed with the patient. Reviewed appropriate action plan to take if red flag symptoms occur. Patient agreeable to treatment plan. Maria Esther Leiva Supervising provider was present and guided the care of the patient for the entire session on this date. All documentation was reviewed and agreed upon. Heather Shah APRN.JOURNEYMAN MACHINIST Allergies As of Date: 05/13/2023 Noted Allergy Reaction PREDNISONE 06/10/2010 2 - Rash Date Reviewed: 05/13/2023 Reviewed by: Sofi Simental LPN - Fully Assessed Reason for Visit: Cough [28] Cmt: Cough x 6-8 weeks Primary Visit Diagnosis:Acute cough [R05.1] Order(s):XR CHEST 2V FRONTAL/LAT [[id number]] Order #: [id number] FUTURE CONSULT TO PULMONARY MEDICINE [[id number]] Order #: [id number]: 1 Prescriptions as of 05/13/2023 - losartan (COZAAR) 50 mg tablet - JANTOVEN 1 mg tablet - warfarin (COUMADIN) 2 mg tablet Take 1 tablet by mouth every afternoon. - venlafaxine (EFFEXOR) 75 mg tablet Take 75 mg by mouth three times a day. - albuterol HFA (PROVENTIL HFA, VENTOLIN HFA) 90 mcg/actuation inhaler Inhale 2 Puffs as instructed every 4 hours as needed for Wheezing/Shortness of Breath. - atorvastatin (LIPITOR) 20 mg ORAL tablet Take 20 mg by mouth once daily. - CANDESARTAN CILEXETIL (ATACAND ORAL) Take by mouth. - CELECOXIB (CELEBREX ORAL) Take by mouth. - Aspirin 81 mg ORAL Tab Take 81 mg by mouth. - MECLIZINE HCL (ANTIVERT ORAL) Take by mouth. (more content not included)... Normal [facility] XR CHEST 2V FRONTAL/LATon XR CHEST 2V FRONTAL/LAT * * *Final Repor t* * * DATE OF EXAM: May 13 2023 3:08PM WOX [id number] - XR CHEST 2V FRONTAL/LAT / PROCEDURE REASON: Acute cough * * * * Physician Interpretation * * * * EXAMINATION: CHEST RADIOGRAPH (2 VIEW FRONTAL and LATERAL) CLINICAL HISTORY: Acute cough MQ: XC2_6 EXAM DATE/TIME: 05/13/2023 3:08 PM COMPARISON: Chest x-ray on 03/17/2023 RESULT: Lines, tubes, and devices: None. Lungs and pleura: No consolidation. No lung mass. No pleural effusion. No pneumothorax. Cardiomediastinal silhouette: Stable cardiac silhouette, with tortuosity of the thoracic aorta. Bones and soft tissues: There are degenerative changes in the spine. IMPRESSION: No acute radiographic abnormality. Seniour Insight Manager: [facility] Transcribe Date/Time: May 13 2023 3:09P Dictated by : BROOKLYN SHORE MD This examination was interpreted and the report reviewed and electronically signed by: BROOKLYN SHORE MD on May 13 2023 3:09PM EST [id number] Normal [facility] XR Chest PA and Lateralon IMPRESSION: No acute radiographic abnormality. Seniour Insight Manager: [facility] Transcribe Date/Time: May 13 2023 3:09P Dictated by : BROOKLYN SHORE MD This examination was interpreted and the report reviewed and electronically signed by: BROOKLYN SHORE MD on May 13 2023 3:09PM EST DIVISION OF RADIOLOGY * * *Final Report* * * DATE OF EXAM: May 13 2023 3:08PM WOX [id number] - XR CHEST 2V FRONTAL/LAT / PROCEDURE REASON: Acute cough * * * * Physician Interpretation * * * * EXAMINATION: CHEST RADIOGRAPH (2 VIEW FRONTAL & LATERAL) CLINICAL HISTORY: Acute cough MQ: XC2_6 EXAM DATE/TIME: 05/13/2023 3:08 PM COMPARISON: Chest x-ray on 03/17/2023 RESULT: Lines, tubes, and devices: None. Lungs and pleura: No consolidation. No lung mass. No pleural effusion. No pneumothorax. Cardiomediastinal silhouette: Stable cardiac silhouette, with tortuosity of the thoracic aorta. Bones and soft tissues: There are degenerative changes in the spine. DIVISION OF RADIOLOGY Provider, Iman Zamarripa - 05/13/2023 * * *Final Report* * * DATE OF EXAM: May 13 2023 3:08PM WOX [id number] - XR CHEST 2V FRONTAL/LAT / PROCEDURE REASON: Acute cough * * * * Physician Interpretation * * * * EXAMINATION: CHEST RADIOGRAPH (2 VIEW FRONTAL & LATERAL) CLINICAL HISTORY: Acute cough MQ: XC2_6 EXAM DATE/TIME: 05/13/2023 3:08 PM COMPARISON: Chest x-ray on 03/17/2023 RESULT: Lines, tubes, and devices: None. Lungs and pleura: No consolidation. No lung mass. No pleural effusion. No pneumothorax. Cardiomediastinal silhouette: Stable cardiac silhouette, with tortuosity of the thoracic aorta. Bones and soft tissues: There are degenerative changes in the spine. IMPRESSION IMPRESSION: No acute radiographic abnormality. [employer] Insight Manager: [facility] Transcribe Date/Time: May 13 2023 3:09P Dictated by : BROOKLYN SHORE MD This examination was interpreted and the report reviewed and electronically signed by: BROOKLYN SHORE MD on May 13 2023 3:09PM [facility] Radiology Study observation (narrative) [facility] XR Chest PA and LateralOrder ed By: Ccf Provider on 05-13-2023 [facility] Capillary blood internationa l normalized ratio (INR)Ordered By: Cole Cardona on 04-07-2023 INR Coag (BldC) [Relative time] 1.9 [facility] Comment on above: Critical Value > 4.0 Whole blood prothrombin time Ordered By: Cole Cardona on 04-07-2023 PT Coag (Bld) [Time] 20.1 s 11.7-14.9 [facility] International normalized rat io (INR) calculationOrdered By: Coel Cardona on 03-19-2023 INR Coag (PPP) [Relative time] 1.0 {INR} [facility] Laboratory - CoagulationOrde red By: Cole Cardona on 03-19-2023 PT Coag (PPP) [Time] 12.9 s 11.7-14.9 [facility] Whole blood prothrombin time Ordered By: Cole Cardona on 03-19-2023 PT Coag (Bld) [Time] 12.0 s 11.7-14.9 [facility] CNOVon 03-17-2023 CNOV Office Visit (UCWSTR ) ----- SCOTT TALBERT ([id number]) 1945 F Date Time Provider Department 03/17/23 9:30 AM HEATHER SHAH [facility] During your visit today, we recorded the following information about you: Temperature Pulse Respiration Blood pressure 97 degrees 121/minute 18/minute 159/94 Weight 98.2 kg Heather Shah APRN.JOURNEYMAN MACHINIST 03/17/2023 10:14 AM Signed CC: Patient presents with: Cough: Chest congestion x4 days HPI: Scott Talbert is a 77 year old female who presents to the office with complaint of chest congestion and cough, nonproductive for 4 days. Symptoms are staying the same. Associated symptoms includes cough. Denies fever, nausea, vomiting , and diarrhea. Treatments tried include nothing so far. with no relief of symptoms. Sick contacts: unknown. History of asthma, frequent episodes of bronchitis, chronic bronchitis, bronchiectasis or COPD: No Smoker: No Seasonal/environmental allergies: No The ROS is otherwise negative. The patient's pmh, medications, allergies, and past visits are reviewed. PHYSICAL EXAM: BP 159/94 Pulse (!) 121 Temp 36.1 ?C (97 ?F) Resp 18 Wt 98.2 kg (216 lb 6.4 oz) SpO2 95% General appearance: alert, cooperative, pleasant, in no acute distress Head: Normocephalic Eyes: EOM's intact, conjunctiva pink and moist, no icterus, sclera white, non-injected Ears: Right ear: External ear/canal- Normal, TM - clear with good landmarks. Left ear: External ear/canal- Normal, TM - clear with good landmarks Oropharynx:moist without lesions, No erythema, exudates or tonsillar hypertrophy. Heart: Negative. RRR without obvious murmur, gallop, or rubs. No ectopy. Lungs: moderate wheezing diffusely No past medical history on file. No past surgical history on file. ALLERGIES Prednisone MEDICATIONS losartan (COZAAR) 50 mg tablet JANTOVEN 1 mg tablet warfarin (COUMADIN) 2 mg tablet Take 1 tablet by mouth every afternoon. venlafaxine (EFFEXOR) 75 mg tablet Take 75 mg by mouth three times a day. atorvastatin (LIPITOR) 20 mg ORAL tablet Take 20 mg by mouth once daily. MECLIZINE HCL (ANTIVERT ORAL) Take by mouth. albuterol HFA (PROVENTIL HFA, VENTOLIN HFA) 90 mcg/actuation inhaler Inhale 2 Puffs as instructed every 4 hours as needed for Wheezing/Shortness of Breath. (Patient not taking: Reported on 03/17/2023) CANDESARTAN CILEXETIL (ATACAND ORAL) Take by mouth. (Patient not taking: Reported on 03/17/2023) CELECOXIB (CELEBREX ORAL) Take by mouth. (Patient not taking: Reported on 03/17/2023) Aspirin 81 mg ORAL Tab Take 81 mg by mouth. (Patient not taking: Reported on 03/17/2023) No family history on file. Social History Tobacco Use Smoking status: Never ASSESSMENT/PLAN: 1. Acute cough - ICD9: 786.2, ICD10: R05.1 - XR CHEST 2V FRONTAL/LAT * * * * Physician Interpretation * * * * EXAMINATION: CHEST RADIOGRAPH (2 VIEW FRONTAL AND LATERAL) CLINICAL HISTORY: Cough MQ: XC2_6 EXAM DATE/TIME: 03/17/2023 10:02 AM COMPARISON: No relevant prior studies available. RESULT: Lines, tubes, and devices: None. Lungs and pleura: No consolidation. No lung mass. No pleural effusion. No pneumothorax. Cardiomediastinal silhouette: Heart normal in size. Aorta mildly tortuous. Bones and soft tissues: Degenerative changes are present within the thoracic spine. IMPRESSION IMPRESSION: No acute radiographic abnormality. [employer] Ins[employer] Manager: CORNELIA Transcribe Date/Time: Mar 17 2023 10:02A Dictated by : NILTON RENJEN, MD Tessalon Perles called in. Prescription instructions reviewed with patient as applicable. Potential red flag symptoms discussed with the patient. Reviewed appropriate action plan to take if red flag symptoms occur. Patient agreeable to treatment plan. Heather Shah APRN.[employer]NEY[employer] MACHINIST Allergies As of Date: 03/17/2023 Noted Allergy Reaction PREDNISONE 06/10/2010 2 - Rash Date Reviewed: 03/17/2023 Reviewed by: Hilda Jones MA - Fully Assessed Reason for Visit: Cough [28] Cmt: Chest congestion x4 days Primary Visit Diagnosis:Acute cough [R05.1] Order(s):XR CHEST 2V FRONTAL/LAT [[id number]] Order #: [id number] FUTURE benzonatate (TESSALON PERLES) 100 mg capsuleTake 1 capsule by mouth three times a day as needed for up to 7 days.Disp: 21 capsuleRfl: 0 Prescriptions as of 03/17/2023 - losartan (COZAAR) 50 mg tablet - JANTOVEN 1 mg tablet - warfarin (COUMADIN) 2 mg tablet Take 1 tablet by mouth every afternoon. - venlafaxine (EFFEXOR) 75 mg tablet Take 75 mg by mouth three times a day. - benzonatate (TESSALON PERLES) 100 mg capsule Take 1 capsule by mouth three times a day as needed for up to 7 days. - albuterol HFA (PROVENTIL HFA, VENTOLIN HFA) 90 mcg/actuation inhaler Inhale 2 Puffs as instructed every 4 hours as needed for Wheezing/Shortness of Breath. - atorvastatin (LIPITOR) 20 mg ORAL tablet Take 20 mg by mouth once daily. (more content not included)... Normal [facility] XR CHEST 2V FRONTAL/LATon XR CHEST 2V FRONTAL/LAT * * *Final Repor t* * * DATE OF EXAM: Mar 17 2023 10:03AM WOX 5291 - XR CHEST 2V FRONTAL/LAT / PROCEDURE REASON: Acute cough * * * * Physician Interpretation * * * * EXAMINATION: CHEST RADIOGRAPH (2 VIEW FRONTAL and LATERAL) CLINICAL HISTORY: Cough MQ: XC2_6 EXAM DATE/TIME: 03/17/2023 10:02 AM COMPARISON: No relevant prior studies available. RESULT: Lines, tubes, and devices: None. Lungs and pleura: No consolidation. No lung mass. No pleural effusion. No pneumothorax. Cardiomediastinal silhouette: Heart normal in size. Aorta mildly tortuous. Bones and soft tissues: Degenerative changes are present within the thoracic spine. IMPRESSION: No acute radiographic abnormality. [employer] Manager: CORNELIA Transcribe Date/Time: Mar 17 2023 10:02A Dictated by : NILTON LOUIS MD This examination was interpreted and the report reviewed and electronically signed by: NILTON LOUIS MD on Mar 17 2023 10:03AM EST [id number] Normal [facility] XR Chest PA and Lateralon IMPRESSION: No acute radiographic abnormality. [employer] Insight Manager: [facility] Transcribe Date/Time: Mar 17 2023 10:02A Dictated by : NILTON LOUIS MD This examination was interpreted and the report reviewed and electronically signed by: NILTON LOUIS MD on Mar 17 2023 10:03AM EST DIVISION OF RADIOLOGY * * *Final Report* * * DATE OF EXAM: Mar 17 2023 10:03AM WOX 5291 - XR CHEST 2V FRONTAL/LAT / PROCEDURE REASON: Acute cough * * * * Physician Interpretation * * * * EXAMINATION: CHEST RADIOGRAPH (2 VIEW FRONTAL & LATERAL) CLINICAL HISTORY: Cough MQ: XC2_6 EXAM DATE/TIME: 03/17/2023 10:02 AM COMPARISON: No relevant prior studies available. RESULT: Lines, tubes, and devices: None. Lungs and pleura: No consolidation. No lung mass. No pleural effusion. No pneumothorax. Cardiomediastinal silhouette: Heart normal in size. Aorta mildly tortuous. Bones and soft tissues: Degenerative changes are present within the thoracic spine. DIVISION OF RADIOLOGY Provider, [facility] - 03/17/2023 * * *Final Report* * * DATE OF EXAM: Mar 17 2023 10:03AM WOX 5291 - XR CHEST 2V FRONTAL/LAT / PROCEDURE REASON: Acute cough * * * * Physician Interpretation * * * * EXAMINATION: CHEST RADIOGRAPH (2 VIEW FRONTAL & LATERAL) CLINICAL HISTORY: Cough MQ: XC2_6 EXAM DATE/TIME: 03/17/2023 10:02 AM COMPARISON: No relevant prior studies available. RESULT: Lines, tubes, and devices: None. Lungs and pleura: No consolidation. No lung mass. No pleural effusion. No pneumothorax. Cardiomediastinal silhouette: Heart normal in size. Aorta mildly tortuous. Bones and soft tissues: Degenerative changes are present within the thoracic spine. IMPRESSION IMPRESSION: No acute radiographic abnormality. [employer] Ins[employer] Manager: CORNELIA Transcribe Date/Time: Mar 17 2023 10:02A Dictated by : NILTON LOUIS MD This examination was interpreted and the report reviewed and electronically signed by: NILTON LOUIS MD on Mar 17 2023 10:03AM EST [facility] Radiology Study observation (narrative) Katia ann [facility] XR Chest PA and LateralOrder ed By: [facility] Provider on 03-17-2023 [facility] Laboratory - CoagulationOrde red By: Cole Cardona on 02-19-2023 INR Coag (Bld) [Relative time] 2.8 {INR} [facility] Comment on above: Critical Value > 4.0 Whole blood prothrombin time Ordered By: Cole Cardona on 02-19-2023 PT Coag (Bld) [Time] 30.5 s 11.7-14.9 [facility] Basophil percentageOrdered B y: Cole Cardona on 12-31-2022 Cholesterol [Mass/Vol] 266 mg/dL <200 [facility] Comment on above: <200 mg/dL Desirable 200-240 mg/dL Borderline >240 mg/dL High Risk Triglyceride [Mass/Vol] 337 mg/dL <[address] [facility] Comment on above: The drugs N-Acetylcy steine and Metamizole may falsely depress this assay.Serum Triglycerides Reference Interval Normal <150 mg/dL Borderline high 150 - 199 mg/dL High 200 - 499 mg/dL Very High > or = 500 mg/dL INR in Blood by Coagulation assayOrdered By: Cole Cardona on 12-31-2022 INR Coag (Bld) [Relative time] 1.6 {INR} [facility] Laboratory - CoagulationOrde red By: Cole Cardona on 12-31-2022 PT Coag (PPP) [Time] 19.0 s 11.7-14.9 [facility] Serum or plasma cholesterol in HDL measurement (mass/volume)Ordered By: Cole Cardona on 12-31-2022 Cholesterol in HDL [Mass/Vol] 68 mg/dL >40 [facility] Comment on above: The drugs N-Acetylcy steine and Metamizole may falsely depress this assay. Reference Range HDL <40 mg/dL Low HDL Cholesterol HDL >or= 60 mg/dL High HDL Cholesterol Serum or plasma cholesterol in VLDL measurement (mass/volume)Ordered By: Cole Cardona on 12-31-2022 Cholesterol in VLDL [Mass/Vol] 67 mg/dL 5-40 [facility] Serum or plasma low density lipoprotein (LDL) cholesterol measurement (mass/volume)Ordered By: Cole Cardona on 12-31-2022 Cholesterol in LDL [Mass/Vol] 131 mg/dL 0-130 [facility] Whole blood hemoglobin A1c/t otal hemoglobin ratio (mass fraction)Ordered By: Cole Cardona on 12-31-2022 HbA1c (Bld) [Mass fraction] 7.2 % 3.8-5.6 [facility] Comment on above: Normal < 5.7 % Predi abetic 5.7 - 6.4 % Diabetic >or= 6.5 % Please note range changes. Laboratory - CoagulationOrde red By: Cole Cardona on 12-16-2022 INR Coag (Bld) [Relative time] 1.9 {INR} [facility] Comment on above: Critical Value > 4.0 Whole blood prothrombin time Ordered By: Cole Cardona on 12-16-2022 PT Coag (Bld) [Time] 20.7 s 11.7-14.9 [facility] Laboratory - CoagulationOrde red By: Cole Cardona on 11-18-2022 INR Coag (Bld) [Relative time] 2.4 {INR} [facility] Comment on above: Critical Value > 4.0 Whole blood prothrombin time Ordered By: Cole Cardona on 11-18-2022 PT Coag (Bld) [Time] 26.0 s 11.7-14.9 [facility] Laboratory - CoagulationOrde red By: Cole Cardona on 10-30-2022 PT Coag (PPP) [Time] 21.8 s 11.7-14.9 [facility] Laboratory - CoagulationOrde red By: Cole Cardona on 10-14-2022 INR Coag (Bld) [Relative time] 2.3 {INR} [facility] Comment on above: Critical Value > 4.0 Whole blood prothrombin time Ordered By: Cole Cardona on 10-14-2022 PT Coag (Bld) [Time] 25.5 s 11.7-14.9 [facility] Laboratory - CoagulationOrde red By: Michelle Zazueta on 10-07-2022 PT Coag (PPP) [Time] 22.4 s 11.7-14.9 [facility] Laboratory - CoagulationOrde red By: Michelle Zazueta on 09-16-2022 INR Coag (Bld) [Relative time] 2.4 {INR} [facility] Comment on above: Critical Value > 4.0 Whole blood prothrombin time Ordered By: Michelle Zazueta on 09-16-2022 PT Coag (Bld) [Time] 26.1 s 11.7-14.9 [facility] Laboratory - CoagulationOrde red By: Michelle Zazueta on 09-02-2022 PT Coag (PPP) [Time] 15.3 s 11.7-14.9 [facility] INR in Blood by Coagulation assayOrdered By: Michelle Zazueta on 08-23-2022 INR Coag (Bld) [Relative time] 4.8 {INR} [facility] Comment on above: CRITICAL VALUE VERIF IED. CALLED TO MICHELLE ZAZUETA NP08/23/22 1640 [address].RESULTS READ BACK BY SAME . Laboratory - CoagulationOrde red By: Michelle Zazueta on 08-23-2022 PT Coag (PPP) [Time] 45.8 s 11.7-14.9 [facility] Whole blood prothrombin time Ordered By: Michelle Zazueta on 08-23-2022 PT Coag (Bld) [Time] 62.2 s 11.7-14.9 [facility] Laboratory - CoagulationOrde red By: Michelle Zazueta on 08-14-2022 INR Coag (Bld) [Relative time] 2.8 {INR} [facility] Comment on above: Critical Value > 4.0 Whole blood prothrombin time Ordered By: Michelle Zazueta on 08-14-2022 PT Coag (Bld) [Time] 30.4 s 11.7-14.9 [facility] Laboratory - Hematology and Cell countson 07-24-2022 HbA1c (Bld) [Mass fraction] 6.8 % 4.2-6.3 [facility] .Auto Diffon 06-05-2022 Basophil, Absolute 0.0 10 3/mcL Normal 0.0-0.2 [facility] ([place]) Comment on above: Performed By: #### G FR, ADIFF, LIP, ANEU, MDW, CBC, CMP #### [address] [address] Basophils/100 WBC (Bld) 0.2 % Normal 0.0-2.5 [facility] ([place]) Comment on above: Performed By: #### G FR, ADIFF, LIP, ANEU, MDW, CBC, CMP #### [address] [address] Eosinophil, Absolute 0.1 10 3/mcL Normal 0.0-0.4 [facility] ([place]) Comment on above: Performed By: #### G FR, ADIFF, LIP, ANEU, MDW, CBC, CMP #### [address] [address] Eosinophils/100 WBC (Bld) 2.0 % Normal 0.0-7.0 [facility] ([place]) Comment on above: Performed By: #### G FR, ADIFF, LIP, ANEU, MDW, CBC, CMP #### [address] [address] Lymphocyte, Absolute 1.1 10 3/mcL Normal 0.8-3.9 [facility] ([place]) Comment on above: Performed By: #### G FR, ADIFF, LIP, ANEU, MDW, CBC, CMP #### [address] [address] Lymphocytes/100 WBC (Bld) 15.7 % Normal 10.0-50.0 [facility] ([place]) Comment on above: Performed By: #### G FR, ADIFF, LIP, ANEU, MDW, CBC, CMP #### [address] [address] Monocyte, Absolute 1.2 10 3/mcL High 0.2-1.0 [facility] ([place]) Comment on above: Performed By: #### G , MICHAEL SMITH, EUSEBIO, MARIAMA, CBC, CMP #### [address] [address] Monocytes/100 WBC (Bld) 17.1 % High 1.7-13.0 [facility] ([place]) Comment on above: Performed By: #### G FR, MICHAEL SMITH, EUSEBIO, MDW, CBC, CMP #### [address] [address] Neutrophils/100 WBC (Bld) 65.0 % Normal 37.0-80.0 [facility] ([place]) Comment on above: Performed By: #### G FR, LUIS, MICHAEL, EUSEBIO, W, CBC, CMP #### [address] [address] .GFRon 06-05-2022 GFR 68 ml/min/1.73sqm Normal [facility] ([place]) Comment on above: Result Comment: GFR Population mean for , Non- Americans Ages 20-29 = 116 mL/min/1.73 sq.m. Ages 30-39 = 107 mL/min/1.73 sq.m. Ages 40-49 = 99 mL/min/1.73 sq.m. Ages 50-59 = 93 mL/min/1.73 sq.m. Ages 60-69 = 85 mL/min/1.73 sq.m. Ages 70+ = 75 mL/min/1.73 sq.m. Chronic Kidney Disease: Less than 60 mL/min/1.73 square meters End Stage Renal Disease: Less than 15 mL/min/1.73 square meters Performed By: #### G FR, LUIS, MICHAEL, EUSEBIO, MDW, CBC, CMP #### [address] [address] GFR Non- 56 ml/min/1.73sqm Normal [facility] ([place]) Comment on above: Result Comment: GFR Population mean for , Non- Americans Ages 20-29 = 116 mL/min/1.73 sq.m. Ages 30-39 = 107 mL/min/1.73 sq.m. Ages 40-49 = 99 mL/min/1.73 sq.m. Ages 50-59 = 93 mL/min/1.73 sq.m. Ages 60-69 = 85 mL/min/1.73 sq.m. Ages 70+ = 75 mL/min/1.73 sq.m. Chronic Kidney Disease: Less than 60 mL/min/1.73 square meters End Stage Renal Disease: Less than 15 mL/min/1.73 square meters Performed By: #### G , MICHAEL SMITH, EUSEBIO, MDW, CBC, CMP #### [address] [address] .NEUABSon 06-05-2022 Neutrophil, Absolute 4.4 10 3/mcL Normal 2.9-6.2 [facility] ([place]) Comment on above: Performed By: #### G , MICHAEL SMITH, EUSEBIO, W, CBC, CMP #### [place] [address] CBCon 06-05-2022 Erythrocyte distribution width (RBC) [Ratio] 13.1 % Normal 11.5-14.5 [facility] ([place]) Comment on above: Performed By: #### G , MICHAEL SMITH, EUSEBIO, W, CBC, CMP #### [address] [address] Hematocrit (Bld) [Volume fraction] 37.4 % Normal 37.0-47.0 [facility] ([place]) Comment on above: Performed By: #### G , MICHAEL SMITH, EUSEBIO, MDW, CBC, CMP #### [address] [address] Hgb 13.2 G/dL Normal 12.0-16.0 [facility] ([place]) Comment on above: Performed By: #### G , LUIS, MICHAEL, EUSEBIO, MDW, CBC, CMP #### [address] [address] MCH (RBC) [Entitic mass] 29.6 pg Normal 27.0-31.2 [facility] ([place]) Comment on above: Performed By: #### G FR, ADIFF, LIP, ANEU, MDW, CBC, CMP #### [address] [address] MCHC 35.2 G/dL Normal 33.0-37.0 [facility] ([place]) Comment on above: Performed By: #### G FR, ADIFF, LIP, ANEU, MDW, CBC, CMP #### [address] [address] MCV (RBC) [Entitic vol] 84.0 fL Normal 80.0-94.0 [facility] ([place]) Comment on above: Performed By: #### G FR, ADIFF, LIP, ANEU, MDW, CBC, CMP #### [address] [address] Platelet 215 10 3/mcL Normal 130-400 [facility] ([place]) Comment on above: Performed By: #### G FR, ADIFF, LIP, ANEU, MDW, CBC, CMP #### [address] [address] Platelet mean volume (Bld) [Entitic vol] 9.4 fL Normal 7.4-10.4 [facility] ([place] Comment on above: Performed By: #### G FR, ADIFF, LIP, ANEU, MDW, CBC, CMP #### [address] [address] RBC 4.45 10 6/mcL Normal 4.20-5.40 [facility] ([place] Comment on above: Performed By: #### G FR, ADIFF, LIP, ANEU, MDW, CBC, CMP #### [address] [address] WBC 6.8 10 3/mcL Normal 4.6-10.8 [facility] ([place]) Comment on above: Performed By: #### G FR, ADIFF, LIP, ANEU, MDW, CBC, CMP #### [address] [address] CMPon 06-05-2022 Albumin Level 2.7 G/dL Low 3.4-4.8 [facility] ([place]) Comment on above: Performed By: #### G FR, ADIFF, LIP, ANEU, MDW, CBC, CMP #### [place] [id number] Albumin/Globulin [Mass ratio] 1.0 {ratio} Low 1.1-2.5 [facility] ([place] Comment on above: Performed By: #### G FR, ADIFF, LIP, ANEU, MDW, CBC, CMP #### [place] [id number] ALP [Catalytic activity/Vol] 168 U/L High 40-135 [facility] ([place] Comment on above: Performed By: #### G FR, ADIFF, LIP, ANEU, MDW, CBC, CMP #### [place] [id number] ALT [Catalytic activity/Vol] 40 U/L Normal 14-59 [facility] ([place] Comment on above: Performed By: #### G FR, ADIFF, LIP, ANEU, MDW, CBC, CMP #### [place] [id number] AST [Catalytic activity/Vol] 31 U/L Normal 10-40 [facility] ([place] Comment on above: Performed By: #### G FR, ADIFF, LIP, ANEU, MDW, CBC, CMP #### [place] [id number] Bili Total 0.6 mg/dL Normal 0.2-1.0 [facility] ([place]) Comment on above: Result Comment: Use of this assay is not recommended for patients undergoing treatment with eltrombopag due to the potential for falsely elevated results. Performed By: #### G FR, ADIFF, LIP, ANEU, MDW, CBC, CMP #### [place] [id number] BUN/Creatinine Ratio 27 ratio Normal 7-27 [facility] ([place]) Comment on above: Performed By: #### G FR, ADIFF, LIP, ANEU, MDW, CBC, CMP #### [address] [address] Calcium [Mass/Vol] 8.5 mg/dL Normal 8.4-10.2 [facility] ([place]) Comment on above: Performed By: #### G FR, ADIFF, LIP, ANEU, MDW, CBC, CMP #### [place] [id number] Chloride [Moles/Vol] 104 mmol/L Normal 98-107 [facility] ([place]) Comment on above: Performed By: #### G FR, ADIFF, LIP, ANEU, MDW, CBC, CMP #### [place] [address] CO2 [Moles/Vol] 25 mmol/L Normal 23-31 [facility] ([place]) Comment on above: Performed By: #### G FR, ADIFF, LIP, ANEU, MDW, CBC, CMP #### [place] [address] Creatinine [Mass/Vol] 0.96 mg/dL Normal 0.55-1.02 [facility] ([place]) Comment on above: Performed By: #### G FR, ADIFF, LIP, ANEU, MDW, CBC, CMP #### [address] [address] Electrolyte Balance 10.0 mEq/L Normal 4.0-15.0 [facility] ([place]) Comment on above: Performed By: #### G FR, ADIFF, LIP, ANEU, MDW, CBC, CMP #### [address] [address] Globulin 2.7 G/dL Normal [facility] ([place] Comment on above: Performed By: #### G FR, ADIFF, LIP, ANEU, MDW, CBC, CMP #### [address] [address] Glucose [Mass/Vol] 156 mg/dL High 83-110 [facility] ([place]) Comment on above: Performed By: #### G FR, ADVERNON, MICHAEL, EUSEBIO, W, CBC, CMP #### [address] [address] Potassium [Moles/Vol] 3.4 mmol/L Low 3.5-5.1 [facility] ([place]) Comment on above: Performed By: #### G FR, ADVERNON, MICHAEL, EUSEBIO, W, CBC, CMP #### [address] [address] Sodium [Moles/Vol] 139 mmol/L Normal 136-145 [facility] ([place]) Comment on above: Performed By: #### G , LUIS, MICHAEL, EUSEBIO, MARIAMA, CBC, CMP #### [address] [address] Total Protein 5.4 G/dL Low 6.4-8.2 [facility] ([place]) Comment on above: Performed By: #### G FR, LUIS, MICHAEL, EUSEBIO, W, CBC, CMP #### [address] [address] Urea nitrogen [Mass/Vol] 26 mg/dL High 7-18 [facility] ([place]) Comment on above: Performed By: #### G FR, ADVERNON, MICHAEL, EUSEBIO, W, CBC, CMP #### [address] [address] LABORATORYOrdered By: SYSTEM SYSTEM on 06-05-2022 Albumin BCP dye [Mass/Vol] 2.7 G/dL Invalid Interpretation Code 3.4 - 4.8 G/dL AO ADM SS Albumin/Globulin [Mass ratio] 1.0 {ratio} Invalid Interpretation Code 1.1 - 2.5 ratio AO ADM SS ALP [Catalytic activity/Vol] 168 U/L Invalid Interpretation Code 40 - 135 U/L AO ADM SS ALT With P-5'-P [Catalytic activity/Vol] 40 U/L Invalid Interpretation Code 14 - 59 U/L AO ADM SS AST With P-5'-P [Catalytic activity/Vol] 31 U/L Invalid Interpretation Code 10 - 40 U/L AO ADM SS Bilirubin [Mass/Vol] 0.6 mg/dL Invalid Interpretation Code 0.2 - 1.0 mg/dL AO ADM SS Calcium [Mass/Vol] 8.5 mg/dL Invalid Interpretation Code 8.4 - 10.2 mg/dL AO ADM SS Chloride [Moles/Vol] 104 mmol/L Invalid Interpretation Code 98 - 107 mmol/L AO ADM SS CO2 [Moles/Vol] 25 mmol/L Invalid Interpretation Code 23 - 31 mmol/L AO ADM SS Creatinine [Mass/Vol] 0.96 mg/dL Invalid Interpretation Code 0.55 - 1.02 mg/dL AO ADM SS Electrolyte Balance 10.0 mEq/L Invalid Interpretation Code 4.0 - 15.0 mEq/L AO ADM SS GFR/1.73 sq M.predicted among blacks MDRD (S/P/Bld) [Vol rate/Area] 68 ml/min/1.73sqm Invalid Interpretation Code AO Chemistry S GFR/1.73 sq M.predicted among non-blacks MDRD (S/P/Bld) [Vol rate/Area] 56 ml/min/1.73sqm Invalid Interpretation Code AO Chemistry S Globulin 2.7 G/dL Invalid Interpretation Code AO ADM SS Glucose [Mass/Vol] 156 mg/dL Invalid Interpretation Code 83 - 110 mg/dL AO ADM SS Magnesium [Mass/Vol] 2.0 mg/dL Invalid Interpretation Code 1.8 - 2.4 mg/dL AO ADM SS Potassium [Moles/Vol] 3.4 mmol/L Invalid Interpretation Code 3.5 - 5.1 mmol/L AO ADM SS Protein [Mass/Vol] 5.4 G/dL Invalid Interpretation Code 6.4 - 8.2 G/dL AO ADM SS Sodium [Moles/Vol] 139 mmol/L Invalid Interpretation Code 136 - 145 mmol/L AO ADM SS Urea nitrogen [Mass/Vol] 26 mg/dL Invalid Interpretation Code 7 - 18 mg/dL AO ADM SS Urea nitrogen/Creatinine [Mass ratio] 27 ratio Invalid Interpretation Code 7 - 27 ratio AO ADM SS LABORATORYOrdered By: Vesna Puentes on 06-05-2022 Basophil, Absolute 0.0 103/mcL Invalid Interpretation Code 0.0 - 0.2 10^3/mcL AO Workflow SS Basophils/100 WBC (Bld) 0.2 % Invalid Interpretation Code 0.0 - 2.5 % AO Workflow SS Eosinophil, Absolute 0.1 103/mcL Invalid Interpretation Code 0.0 - 0.4 10^3/mcL AO Workflow SS Eosinophils/100 WBC (Bld) 2.0 % Invalid Interpretation Code 0.0 - 7.0 % AO Workflow SS Erythrocyte distribution width (RBC) [Ratio] 13.1 % Invalid Interpretation Code 11.5 - 14.5 % AO Workflow SS Hematocrit (Bld) [Volume fraction] 37.4 % Invalid Interpretation Code 37.0 - 47.0 % AO Workflow SS Hemoglobin (Bld) [Mass/Vol] 13.2 G/dL Invalid Interpretation Code 12.0 - 16.0 G/dL AO Workflow SS Lymphocyte, Absolute 1.1 103/mcL Invalid Interpretation Code 0.8 - 3.9 10^3/mcL AO Workflow SS Lymphocytes/100 WBC (Bld) 15.7 % Invalid Interpretation Code 10.0 - 50.0 % AO Workflow SS MCH (RBC) [Entitic mass] 29.6 pg Invalid Interpretation Code 27.0 - 31.2 pg AO Workflow SS MCHC 35.2 G/dL Invalid Interpretation Code 33.0 - 37.0 G/dL AO Workflow SS MCV (RBC) [Entitic vol] 84.0 fL Invalid Interpretation Code 80.0 - 94.0 fL AO Workflow SS Monocyte, Absolute 1.2 103/mcL Invalid Interpretation Code 0.2 - 1.0 10^3/mcL AO Workflow SS Monocytes/100 WBC (Bld) 17.1 % Invalid Interpretation Code 1.7 - 13.0 % AO Workflow SS Neutrophil, Absolute 4.4 103/mcL Invalid Interpretation Code 2.9 - 6.2 10^3/mcL AO Workflow SS Neutrophils/100 WBC (Bld) 65.0 % Invalid Interpretation Code 37.0 - 80.0 % AO Workflow SS Platelet mean volume (Bld) [Entitic vol] 9.4 fL Invalid Interpretation Code 7.4 - 10.4 fL AO Workflow SS Platelets (Bld) [#/Vol] 215 103/mcL Invalid Interpretation Code 130 - 400 10^3/mcL AO Workflow SS RBC (Bld) [#/Vol] 4.45 106/mcL Invalid Interpretation Code 4.20 - 5.40 10^6/mcL AO Workflow SS WBC (Bld) [#/Vol] 6.8 103/mcL Invalid Interpretation Code 4.6 - 10.8 10^3/mcL AO Workflow SS MGon 06-05-2022 Magnesium [Mass/Vol] 2.0 mg/dL Normal 1.8-2.4 [facility] ([place] Comment on above: Performed By: #### M Minda #### [address] [address] .Auto Diffon 06-04-2022 Basophil, Absolute 0.0 10 3/mcL Normal 0.0-0.2 [facility] ([place]) Comment on above: Performed By: #### G FR, ADIFF, LIP, ANEU, MDW, CBC, CMP #### [address] [address] Basophils/100 WBC (Bld) 0.3 % Normal 0.0-2.5 [facility] ([place]) Comment on above: Performed By: #### G FR, ADIFF, LIP, ANEU, MDW, CBC, CMP #### [address] [address] Eosinophil, Absolute 0.1 10 3/mcL Normal 0.0-0.4 [facility] ([place]) Comment on above: Performed By: #### G FR, ADIFF, LIP, ANEU, MDW, CBC, CMP #### [address] [address] Eosinophils/100 WBC (Bld) 1.7 % Normal 0.0-7.0 [facility] ([place]) Comment on above: Performed By: #### G FR, ADIFF, LIP, ANEU, MDW, CBC, CMP #### [address] [address] Lymphocyte, Absolute 1.8 10 3/mcL Normal 0.8-3.9 [facility] ([place] Comment on above: Performed By: #### G FR, ADIFF, LIP, ANEU, MDW, CBC, CMP #### [address] [address] Lymphocytes/100 WBC (Bld) 21.0 % Normal 10.0-50.0 [facility] ([place] Comment on above: Performed By: #### G FR, ADIFF, LIP, ANEU, MDW, CBC, CMP #### [address] [address] Monocyte, Absolute 1.5 10 3/mcL High 0.2-1.0 [facility] ([place] Comment on above: Performed By: #### G FR, ADIFF, LIP, ANEU, MDW, CBC, CMP #### [address] [address] Monocytes/100 WBC (Bld) 17.1 % High 1.7-13.0 [facility] ([place] Comment on above: Performed By: #### G FR, ADIFF, LIP, EUSEBIO, MDW, CBC, CMP #### [address] [address] Neutrophils/100 WBC (Bld) 59.9 % Normal 37.0-80.0 [facility] ([place] Comment on above: Performed By: #### G FR, ADIFF, LIP, EUSEBIO, MDW, CBC, CMP #### [address] [address] .GFRon 06-04-2022 GFR Non- 36 ml/min/1.73sqm Normal [facility] ([place] Comment on above: Result Comment: GFR Population mean for , Non- Americans Ages 20-29 = 116 mL/min/1.73 sq.m. Ages 30-39 = 107 mL/min/1.73 sq.m. Ages 40-49 = 99 mL/min/1.73 sq.m. Ages 50-59 = 93 mL/min/1.73 sq.m. Ages 60-69 = 85 mL/min/1.73 sq.m. Ages 70+ = 75 mL/min/1.73 sq.m. Chronic Kidney Disease: Less than 60 mL/min/1.73 square meters End Stage Renal Disease: Less than 15 mL/min/1.73 square meters Performed By: #### G FR, ADIFF, LIP, ANEU, MDW, CBC, CMP #### [address] [address] GFR 43 ml/min/1.73sqm Normal [facility] ([place] Comment on above: Result Comment: GFR Population mean for , Non- Americans Ages 20-29 = 116 mL/min/1.73 sq.m. Ages 30-39 = 107 mL/min/1.73 sq.m. Ages 40-49 = 99 mL/min/1.73 sq.m. Ages 50-59 = 93 mL/min/1.73 sq.m. Ages 60-69 = 85 mL/min/1.73 sq.m. Ages 70+ = 75 mL/min/1.73 sq.m. Chronic Kidney Disease: Less than 60 mL/min/1.73 square meters End Stage Renal Disease: Less than 15 mL/min/1.73 square meters Performed By: #### G , MICHAEL SMITH ANEU, MDW, CBC, CMP #### [place] [address] .NEUABSon 06-04-2022 Neutrophil, Absolute 5.1 10 3/mcL Normal 2.9-6.2 [facility] ([place] Comment on above: Performed By: #### G , MICHAEL SMITH, EUSEBIO, W, CBC, CMP #### [place] [address] .Urinalysis Microscopic (AO) on 06-04-2022 UA Bacteria 1+ /hpf Abnormal [facility] ([place] Comment on above: Performed By: #### G FR, LUIS, MICHAEL, EUSEBIO, W, CBC, CMP #### [place] [id number] UA RBC 0-5 Abnormal None Seen [facility] ([place] Comment on above: Performed By: #### G FR, ADVERNON, MICHAEL, EUSEBIO, W, CBC, CMP #### [place] [id number] UA Squam Epithelial LOADED Abnormal None Seen [facility] ([place] Comment on above: Performed By: #### G FR, ADIFF, LIP, EUSEBIO, MDW, CBC, CMP #### [place] [address] UA WBC 5-10 Abnormal None Seen [facility] ([place] Comment on above: Performed By: #### G FR, ADVERNON, MICHAEL, EUSEBIO, MDW, CBC, CMP #### [address] [address] CBCon 06-04-2022 Erythrocyte distribution width (RBC) [Ratio] 13.3 % Normal 11.5-14.5 [facility] ([place] Comment on above: Performed By: #### G FR, ADIFF, LIP, ANEU, MDW, CBC, CMP #### [address] [address] Hematocrit (Bld) [Volume fraction] 39.0 % Normal 37.0-47.0 [facility] ([place] Comment on above: Performed By: #### G FR, ADIFF, LIP, ANEU, MDW, CBC, CMP #### [address] [address] Hgb 13.7 G/dL Normal 12.0-16.0 [facility] ([place] Comment on above: Performed By: #### G FR, ADIFF, LIP, ANEU, MDW, CBC, CMP #### [address] [address] MCH (RBC) [Entitic mass] 29.8 pg Normal 27.0-31.2 [facility] ([place] Comment on above: Performed By: #### G FR, ADIFF, LIP, ANEU, MDW, CBC, CMP #### [address] [address] MCHC 35.2 G/dL Normal 33.0-37.0 [facility] ([place] Comment on above: Performed By: #### G FR, ADIFF, LIP, ANEU, MDW, CBC, CMP #### [address] [address] MCV (RBC) [Entitic vol] 84.7 fL Normal 80.0-94.0 [facility] ([place] Comment on above: Performed By: #### G FR, ADIFF, LIP, ANEU, MDW, CBC, CMP #### [address] [address] Platelet 226 10 3/mcL Normal 130-400 [facility] ([place] Comment on above: Performed By: #### G , LUIS, MICHAEL, ANEU, MDW, CBC, CMP #### [address] [address] Platelet mean volume (Bld) [Entitic vol] 9.6 fL Normal 7.4-10.4 [facility] ([place] Comment on above: Performed By: #### G , LUIS, MICHAEL, ANEU, MDW, CBC, CMP #### [address] [address] RBC 4.60 10 6/mcL Normal 4.20-5.40 [facility] ([place] Comment on above: Performed By: #### G , LUIS, MICHAEL, ANEU, MDW, CBC, CMP #### [address] [address] WBC 8.6 10 3/mcL Normal 4.6-10.8 [facility] ([place] Comment on above: Performed By: #### G , LUIS, MICHAEL, EUSEBIO, MDW, CBC, CMP #### [address] [address] CMPon 06-04-2022 Albumin Level 3.1 G/dL Low 3.4-4.8 [facility] ([place] Comment on above: Performed By: #### G FR, LUIS, MICHAEL, ANEU, MDW, CBC, CMP #### [address] [address] Albumin/Globulin [Mass ratio] 1.1 {ratio} Normal 1.1-2.5 [facility] ([place] Comment on above: Performed By: #### G FR, LUIS, LIP, ANEU, MDW, CBC, CMP #### [address] [address] ALP [Catalytic activity/Vol] 161 U/L High 40-135 [facility] ([place] Comment on above: Performed By: #### G FR, ADIFF, LIP, ANEU, MDW, CBC, CMP #### [address] [address] ALT [Catalytic activity/Vol] 43 U/L Normal 14-59 [facility] ([place] Comment on above: Performed By: #### G FR, ADIFF, LIP, ANEU, MDW, CBC, CMP #### [address] [address] AST [Catalytic activity/Vol] 43 U/L High 10-40 [facility] ([place] Comment on above: Performed By: #### G FR, ADIFF, LIP, ANEU, MDW, CBC, CMP #### [address] [address] Bili Total 0.6 mg/dL Normal 0.2-1.0 [facility] ([place] Comment on above: Result Comment: Use of this assay is not recommended for patients undergoing treatment with eltrombopag due to the potential for falsely elevated results. Performed By: #### G FR, ADIFF, LIP, ANEU, MDW, CBC, CMP #### [address] [address] BUN/Creatinine Ratio 17 ratio Normal 7-27 [facility] ([place]) Comment on above: Performed By: #### G FR, ADIFF, LIP, ANEU, MDW, CBC, CMP #### [address] [address] Calcium [Mass/Vol] 9.0 mg/dL Normal 8.4-10.2 [facility] ([place]) Comment on above: Performed By: #### G FR, ADIFF, LIP, ANEU, MDW, CBC, CMP #### [address] [address] Chloride [Moles/Vol] 98 mmol/L Normal 98-107 [facility] ([place] Comment on above: Performed By: #### G FR, ADIFF, LIP, ANEU, MDW, CBC, CMP #### [address] [address] CO2 [Moles/Vol] 27 mmol/L Normal 23-31 [facility] ([place] Comment on above: Performed By: #### G FR, ADVERNON, MICHAEL, EUSEBIO, W, CBC, CMP #### [address] [address] Creatinine [Mass/Vol] 1.43 mg/dL High 0.55-1.02 [facility] ([place]) Comment on above: Performed By: #### G FR, ADIFF, LIP, EUSEBIO, MDW, CBC, CMP #### [address] [address] Electrolyte Balance 10.0 mEq/L Normal 4.0-15.0 [facility] ([place]) Comment on above: Performed By: #### G FR, ADVERNON, MICHAEL, EUSEBIO, MDW, CBC, CMP #### [address] [address] Globulin 2.8 G/dL Normal [facility] ([place] Comment on above: Performed By: #### G FR, ADIFF, LIP, EUSEBIO, MDW, CBC, CMP #### [address] [address] Glucose [Mass/Vol] 136 mg/dL High 83-110 [facility] ([place] Comment on above: Performed By: #### G FR, ADIFF, LIP, ANEU, MDW, CBC, CMP #### [address] [address] Potassium [Moles/Vol] 3.5 mmol/L Normal 3.5-5.1 [facility] ([place]) Comment on above: Performed By: #### G FR, ADIFF, LIP, ANEU, MDW, CBC, CMP #### [address] [address] Sodium [Moles/Vol] 135 mmol/L Low 136-145 [facility] ([place]) Comment on above: Performed By: #### G FR, ADIFF, LIP, ANEU, MDW, CBC, CMP #### [address] [address] Total Protein 5.9 G/dL Low 6.4-8.2 [facility] ([place] Comment on above: Performed By: #### G LUIS NAVARRO LIP, ANEU, MDW, CBC, CMP #### [address] [place], [place] [address] Urea nitrogen [Mass/Vol] 25 mg/dL High 7-18 [facility] ([place] Comment on above: Performed By: #### G , MICHAEL SMITH ANEU, MDW, CBC, CMP #### [address] [place], [place] [address] CT ANGIOGRAPHY CHEST W/CONTR Sangeeta 06-04-2022 CT ANGIOGRAPHY CHEST W/CONTRAST ORIGINAL EXAMINATION: CTA OF THE CHEST 06/03/2022 8:58 pm TECHNIQUE: CTA of the chest was performed after the administration of intravenous contrast. Multiplanar reformatted images are provided for review. MIP images are provided for review. Automated exposure control, iterative reconstruction, and/or weight based adjustment of the mA/kV was utilized to reduce the radiation dose to as low as reasonably achievable. COMPARISON: None. HISTORY: ORDERING SYSTEM PROVIDED HISTORY: Reason for Exam: chest pain; suspect PE FINDINGS: Pulmonary Arteries: There is adequate opacification of the pulmonary arteries. Segmental and subsegmental thrombus is seen within the pulmonary arteries supplying the right lower lobe. No evidence of right heart strain. Mediastinum: The heart is not enlarged. No pericardial effusion. Coronary artery calcific atherosclerosis. The great vessels are normal in course and caliber. Unremarkable esophagus. Bilateral thyroid nodules. The largest is within the right thyroid lobe, measuring up to 1.1 cm. This is not meet ACR criteria for recommended follow-up. No mediastinal or hilar adenopathy. Lungs/pleura: The central airways are patent. No focal consolidation, pleural effusion, or pneumothorax. Upper Abdomen: No acute process within the included images of the upper abdomen. 1.7 cm simple cyst within the superior pole of the right kidney. Soft Tissues/Bones: No acute bone or soft tissue abnormality. Degenerative changes within the spine. IMPRESSION: Segmental and subsegmental right lower lobe pulmonary emboli. No evidence of right heart strain. Results called by Dr. Kerri Samuel to Dr. Kyree Dawson at 21:12. I have personally reviewed the images of this examination and agree with the resident's findings and interpretation. Interpreted by: Ellis Trammell DO Preliminary Report By: Kerri Samuel Electronically signed By Ellis Trammell DO Dictated Date: 06/03/2022 9:02:51 PM Prelim Date: 06/03/2022 9:12:33 PM Sign Date: 06/03/2022 10:24:00 PM Ordering Provider: KYREE DAWSON [facility] ([place]) LABORATORYOrdered By: SYSTEM SYSTEM on 06-04-2022 Albumin BCP dye [Mass/Vol] 3.1 G/dL Invalid Interpretation Code 3.4 - 4.8 G/dL AO ADM SS Albumin/Globulin [Mass ratio] 1.1 {ratio} Invalid Interpretation Code 1.1 - 2.5 ratio AO ADM SS ALP [Catalytic activity/Vol] 161 U/L Invalid Interpretation Code 40 - 135 U/L AO ADM SS ALT With P-5'-P [Catalytic activity/Vol] 43 U/L Invalid Interpretation Code 14 - 59 U/L AO ADM SS AST With P-5'-P [Catalytic activity/Vol] 43 U/L Invalid Interpretation Code 10 - 40 U/L AO ADM SS Bilirubin [Mass/Vol] 0.6 mg/dL Invalid Interpretation Code 0.2 - 1.0 mg/dL AO ADM SS Calcium [Mass/Vol] 9.0 mg/dL Invalid Interpretation Code 8.4 - 10.2 mg/dL AO ADM SS Chloride [Moles/Vol] 98 mmol/L Invalid Interpretation Code 98 - 107 mmol/L AO ADM SS CO2 [Moles/Vol] 27 mmol/L Invalid Interpretation Code 23 - 31 mmol/L AO ADM SS Creatinine [Mass/Vol] 1.43 mg/dL Invalid Interpretation Code 0.55 - 1.02 mg/dL AO ADM SS Electrolyte Balance 10.0 mEq/L Invalid Interpretation Code 4.0 - 15.0 mEq/L AO ADM SS GFR 43 ml/min/1.73sqm Invalid Interpretation Code AO Chemistry S GFR Non- 36 ml/min/1.73sqm Inval id Interpretation Code AO Chemistry S Globulin 2.8 G/dL Invalid Interpretation Code AO ADM SS Glucose [Mass/Vol] 136 mg/dL Invalid Interpretation Code 83 - 110 mg/dL AO ADM SS Magnesium [Mass/Vol] 1.6 mg/dL Invalid Interpretation Code 1.8 - 2.4 mg/dL AO ADM SS Potassium [Moles/Vol] 3.5 mmol/L Invalid Interpretation Code 3.5 - 5.1 mmol/L AO ADM SS Protein [Mass/Vol] 5.9 G/dL Invalid Interpretation Code 6.4 - 8.2 G/dL AO ADM SS Sodium [Moles/Vol] 135 mmol/L Invalid Interpretation Code 136 - 145 mmol/L AO ADM SS Urea nitrogen [Mass/Vol] 25 mg/dL Invalid Interpretation Code 7 - 18 mg/dL AO ADM SS Urea nitrogen/Creatinine [Mass ratio] 17 ratio Invalid Interpretation Code 7 - 27 ratio AO ADM SS LABORATORYOrdered By: Sofi Meng on 06-04-2022 Basophil, Absolute 0.0 103/mcL Invalid Interpretation Code 0.0 - 0.2 10^3/mcL AO Workflow SS Basophils/100 WBC (Bld) 0.3 % Invalid Interpretation Code 0.0 - 2.5 % AO Workflow SS Eosinophil, Absolute 0.1 103/mcL Invalid Interpretation Code 0.0 - 0.4 10^3/mcL AO Workflow SS Eosinophils/100 WBC (Bld) 1.7 % Invalid Interpretation Code 0.0 - 7.0 % AO Workflow SS Erythrocyte distribution width (RBC) [Ratio] 13.3 % Invalid Interpretation Code 11.5 - 14.5 % AO Workflow SS Hematocrit (Bld) [Volume fraction] 39.0 % Invalid Interpretation Code 37.0 - 47.0 % AO Workflow SS Hemoglobin (Bld) [Mass/Vol] 13.7 G/dL Invalid Interpretation Code 12.0 - 16.0 G/dL AO Workflow SS Lymphocyte, Absolute 1.8 103/mcL Invalid Interpretation Code 0.8 - 3.9 10^3/mcL AO Workflow SS Lymphocytes/100 WBC (Bld) 21.0 % Invalid Interpretation Code 10.0 - 50.0 % AO Workflow SS MCH (RBC) [Entitic mass] 29.8 pg Invalid Interpretation Code 27.0 - 31.2 pg AO Workflow SS MCHC 35.2 G/dL Invalid Interpretation Code 33.0 - 37.0 G/dL AO Workflow SS MCV (RBC) [Entitic vol] 84.7 fL Invalid Interpretation Code 80.0 - 94.0 fL AO Workflow SS Monocyte, Absolute 1.5 103/mcL Invalid Interpretation Code 0.2 - 1.0 10^3/mcL AO Workflow SS Monocytes/100 WBC (Bld) 17.1 % Invalid Interpretation Code 1.7 - 13.0 % AO Workflow SS Neutrophil, Absolute 5.1 103/mcL Invalid Interpretation Code 2.9 - 6.2 10^3/mcL AO Workflow SS Neutrophils/100 WBC (Bld) 59.9 % Invalid Interpretation Code 37.0 - 80.0 % AO Workflow SS Platelet mean volume (Bld) [Entitic vol] 9.6 fL Invalid Interpretation Code 7.4 - 10.4 fL AO Workflow SS Platelets (Bld) [#/Vol] 226 103/mcL Invalid Interpretation Code 130 - 400 10^3/mcL AO Workflow SS RBC (Bld) [#/Vol] 4.60 106/mcL Invalid Interpretation Code 4.20 - 5.40 10^6/mcL AO Workflow SS WBC (Bld) [#/Vol] 8.6 103/mcL Invalid Interpretation Code 4.6 - 10.8 10^3/mcL AO Workflow SS LABORATORYOrdered By: Rhoda Marquis on 06-04-2022 Appearance (U) Cloudy *ABN* (06/04/22 2:50 AM) Invalid Interpretation Code Clear AO Auto Urine SS Bacteria LM.HPF (Urine sed) [#/Area] 1 /[HPF] Invalid Interpretation Code AO Auto Urine SS Bilirubin Ql (U) Negative (06/04/22 2:50 AM) Invalid Interpretation Code Negative AO Auto Urine SS Color (U) Dark yellow Invalid Interpretation Code AO Auto Urine SS Glucose Test strip (U) [Mass/Vol] Negative Invalid Interpretation Code Negativemg /dL AO Auto Urine SS Hemoglobin Auto test strip (U) [Mass/Vol] Trace *ABN* (06/04/22 2:50 AM) Invalid Interpretation Code Negative AO Auto Urine SS Ketones Ql (U) Negative Invalid Interpretation Code Negativemg /dL AO Auto Urine SS UA Leuk Est Negative (06/04/22 2:50 AM) Invalid Interpretation Code Negative AO Auto Urine SS UA Nitrite Negative (06/04/22 2:50 AM) Invalid Interpretation Code Negative AO Auto Urine SS UA pH 6.0 (06/04/22 2:50 AM) Invalid Interpretation Code 5.0 - 8.0 AO Auto Urine SS UA Protein 100 mg/dL Invalid Interpretation Code Negativemg /dL AO Auto Urine SS UA RBC 0-5 /HPF Invalid Interpretation Code None Seen/HPF AO Auto Urine SS UA Spec Grav <=1.005 *ABN* (06/04/22 2:50 AM) Invalid Interpretation Code 1.015-1.02 5 AO Auto Urine SS UA Specimen Type Clean Catch (06/04/22 2:50 AM) Invalid Interpretation Code AO Auto Urine SS UA Squam Epithelial LOADED /HPF Invalid Interpretation Code None Seen/HPF AO Auto Urine SS UA Urobilinogen 0.2 E.U./dL Invalid Interpretation Code 0.2-1.0E.U ./dL AO Auto Urine SS WBC LM.HPF (Urine sed) [#/Area] 5-10 /HPF Invalid Interpretation Code None Seen/HPF AO Auto Urine SS MGon 06-04-2022 Magnesium [Mass/Vol] 1.6 mg/dL Low 1.8-2.4 [facility] ([place] Comment on above: Performed By: #### G LUIS NAVARRO LIP, ANEU, MDW, CBC, CMP #### [address] [address] No Panel Informationon 06-04 Culture Urine Culture results pending. [facility] Work Phone: UAon 06-04-2022 Color (U) Dark yellow Normal [facility] ([place]) Comment on above: Performed By: #### G LUIS NAVARRO LIP, ANEU, MDW, CBC, CMP #### [address] [address] Glucose (U) [Mass/Vol] Negative Normal Negative [facility] ([place]) Comment on above: Performed By: #### LUIS MCKOY LIP, ANEU, MDW, CBC, CMP #### [address] [address] Ketones Ql (U) Negative Normal Negative [facility] ([place] Comment on above: Performed By: #### G LUIS NAVARRO LIP, ANEU, MDW, CBC, CMP #### [place] [id number] [place], [place] [address] UA Appear Cloudy Abnormal Clear [facility] ([place] Comment on above: Performed By: #### G FR, ADIFF, LIP, ANEU, MDW, CBC, CMP #### [address] [address] UA Blood Trace Abnormal Negative [facility] ([place] Comment on above: Performed By: #### G FR, ADIFF, LIP, ANEU, MDW, CBC, CMP #### [address] [address] UA Leuk Est Negative Normal Negative [facility] ([place] Comment on above: Performed By: #### G FR, ADIFF, LIP, ANEU, MDW, CBC, CMP #### [address] [address] UA Nitrite Negative Normal Negative [facility] ([place] Comment on above: Performed By: #### G FR, ADIFF, LIP, ANEU, MDW, CBC, CMP #### [address] [address] UA pH 6.0 Normal 5.0 - 8.0 [facility] ([place] Comment on above: Performed By: #### G FR, ADIFF, LIP, ANEU, MDW, CBC, CMP #### [address] [address] UA Protein 100 mg/dL Abnormal Negative [facility] ([place] Comment on above: Performed By: #### G FR, ADIFF, LIP, ANEU, MDW, CBC, CMP #### [address] [address] UA Spec Grav <=1.005 Abnormal 1.015-1.02 5 [facility] ([place] Comment on above: Performed By: #### G FR, ADIFF, LIP, ANEU, MDW, CBC, CMP #### [address] [address] UA Specimen Type Clean Catch Normal [facility] ([place] Comment on above: Performed By: #### G FR, ADIFF, LIP, ANEU, MDW, CBC, CMP #### [place] [address] UA Urobilinogen 0.2 E.U./dL Normal 0.2-1.0 [facility] ([place] Comment on above: Performed By: #### G , MICHAEL SMITH, EUSEBIO, W, CBC, CMP #### [address] [address] Urobilinogen (U) [Mass/Vol] Negative Normal Negative [facility] ([place] Comment on above: Performed By: #### G FR, LUIS, MICHAEL, EUSEBIO, MDW, CBC, CMP #### [address] [address] .Auto Diffon 06-03-2022 Basophil, Absolute 0.0 10 3/mcL Normal 0.0-0.2 [facility] ([place] Comment on above: Performed By: #### G , MICHAEL SMITH, EUSEBIO, MDW, CBC, CMP #### [address] [address] Basophils/100 WBC (Bld) 0.2 % Normal 0.0-2.5 [facility] ([place]) Comment on above: Performed By: #### G , MICHAEL SMITH, EUSEBIO, MDW, CBC, CMP #### [address] [address] Eosinophil, Absolute 0.0 10 3/mcL Normal 0.0-0.4 [facility] ([place] Comment on above: Performed By: #### G FR, ADIFF, MICHAEL, EUSEBIO, MDW, CBC, CMP #### [address] [address] Eosinophils/100 WBC (Bld) 0.6 % Normal 0.0-7.0 [facility] ([place] Comment on above: Performed By: #### G FR, LUIS, MICHAEL, EUSEBIO, W, CBC, CMP #### [address] [address] Lymphocyte, Absolute 1.1 10 3/mcL Normal 0.8-3.9 [facility] ([place] Comment on above: Performed By: #### G FR, ADIFF, LIP, ANEU, MDW, CBC, CMP #### [address] [address] Lymphocytes/100 WBC (Bld) 15.5 % Normal 10.0-50.0 [facility] ([place] Comment on above: Performed By: #### G FR, ADIFF, LIP, ANEU, MDW, CBC, CMP #### [address] [address] Monocyte, Absolute 1.0 10 3/mcL Normal 0.2-1.0 [facility] ([place] Comment on above: Performed By: #### G FR, ADIFF, LIP, ANEU, MDW, CBC, CMP #### [address] [address] Monocytes/100 WBC (Bld) 14.3 % High 1.7-13.0 [facility] ([place]) Comment on above: Performed By: #### G FR, ADIFF, LIP, ANEU, MDW, CBC, CMP #### [address] [address] Neutrophils/100 WBC (Bld) 69.4 % Normal 37.0-80.0 [facility] ([place] Comment on above: Performed By: #### G FR, ADIFF, MICHAEL, ANEU, MDW, CBC, CMP #### [address] [address] .GFRon 06-03-2022 GFR 33 ml/min/1.73sqm Normal [facility] ([place] Comment on above: Result Comment: GFR Population mean for , Non- Americans Ages 20-29 = 116 mL/min/1.73 sq.m. Ages 30-39 = 107 mL/min/1.73 sq.m. Ages 40-49 = 99 mL/min/1.73 sq.m. Ages 50-59 = 93 mL/min/1.73 sq.m. Ages 60-69 = 85 mL/min/1.73 sq.m. Ages 70+ = 75 mL/min/1.73 sq.m. Chronic Kidney Disease: Less than 60 mL/min/1.73 square meters End Stage Renal Disease: Less than 15 mL/min/1.73 square meters Performed By: #### G , LUIS, MICHAEL, ANEU, MDW, CBC, CMP #### [address] [address] GFR Non- 27 ml/min/1.73sqm Normal [facility] ([place] Comment on above: Result Comment: GFR Population mean for , Non- Americans Ages 20-29 = 116 mL/min/1.73 sq.m. Ages 30-39 = 107 mL/min/1.73 sq.m. Ages 40-49 = 99 mL/min/1.73 sq.m. Ages 50-59 = 93 mL/min/1.73 sq.m. Ages 60-69 = 85 mL/min/1.73 sq.m. Ages 70+ = 75 mL/min/1.73 sq.m. Chronic Kidney Disease: Less than 60 mL/min/1.73 square meters End Stage Renal Disease: Less than 15 mL/min/1.73 square meters Performed By: #### G FR, ADVERNON, LIP, ANEU, MDW, CBC, CMP #### [address] [address] .MDWon 06-03-2022 Monocyte Distribution Width 26.28 High 0.00-20.00 [facility] ([place] Comment on above: Result Comment: For adults in ED, MDW>20.0 may be associated with a higher risk of sepsis during the first 12hrs of hospital admission Performed By: #### G , MICHAEL SMITH, ANEU, MDW, CBC, CMP #### [address] [address] .NEUABSon 06-03-2022 Neutrophil, Absolute 4.9 10 3/mcL Normal 2.9-6.2 [facility] ([place] Comment on above: Performed By: #### G FR, ADVERNON, MICHAEL, ANEU, MDW, CBC, CMP #### [address] [address] CBCon 06-03-2022 Erythrocyte distribution width (RBC) [Ratio] 13.2 % Normal 11.5-14.5 [facility] ([place] Comment on above: Performed By: #### G FR, LUIS, MICHAEL, EUSEBIO, MDW, CBC, CMP #### [address] [address] Hematocrit (Bld) [Volume fraction] 44.1 % Normal 37.0-47.0 [facility] ([place] Comment on above: Performed By: #### G FR, ADIFF, LIP, ANEU, MDW, CBC, CMP #### [place] [address] Hgb 15.2 G/dL Normal 12.0-16.0 [facility] ([place] Comment on above: Performed By: #### G FR, ADVERNON, LIP, ANEU, MDW, CBC, CMP #### [place] [address] MCH (RBC) [Entitic mass] 29.4 pg Normal 27.0-31.2 [facility] ([place]) Comment on above: Performed By: #### G FR, ADVERNON, LIP, ANEU, MDW, CBC, CMP #### [place] [address] MCHC 34.4 G/dL Normal 33.0-37.0 [facility] ([place] Comment on above: Performed By: #### G FR, ADIFF, LIP, ANEU, MDW, CBC, CMP #### [place] [id number] MCV (RBC) [Entitic vol] 85.3 fL Normal 80.0-94.0 [facility] ([place]) Comment on above: Performed By: #### G FR, ADIFF, LIP, ANEU, MDW, CBC, CMP #### [place] [id number] Platelet 264 10 3/mcL Normal 130-400 [facility] ([place]) Comment on above: Performed By: #### G FR, ADIFF, LIP, ANEU, MDW, CBC, CMP #### [place] [id number] Platelet mean volume (Bld) [Entitic vol] 9.9 fL Normal 7.4-10.4 [facility] ([place] Comment on above: Performed By: #### G , LUIS, MICHAEL, EUSEBIO, MDW, CBC, CMP #### [address] [address] RBC 5.17 10 6/mcL Normal 4.20-5.40 [facility] ([place]) Comment on above: Performed By: #### G FR, ADVERNON, LIP, ANEU, MDW, CBC, CMP #### [address] [address] WBC 7.1 10 3/mcL Normal 4.6-10.8 [facility] ([place] Comment on above: Performed By: #### G , LUIS, LIP, ANEU, MDW, CBC, CMP #### [address] [address] CMPon 06-03-2022 Albumin Level 3.6 G/dL Normal 3.4-4.8 [facility]) Comment on above: Performed By: #### G , LUIS, MICHAEL, EUSEBIO, MDW, CBC, CMP #### [address] [address] Albumin/Globulin [Mass ratio] 1.2 {ratio} Normal 1.1-2.5 [facility]) Comment on above: Performed By: #### G FR, ADIFF, LIP, ANEU, MDW, CBC, CMP #### [address] [address] ALP [Catalytic activity/Vol] 186 U/L High 40-135 [facility] ([place] Comment on above: Performed By: #### G FR, ADIFF, LIP, ANEU, MDW, CBC, CMP #### [address] [address] ALT [Catalytic activity/Vol] 51 U/L Normal 14-59 [facility] ([place] Comment on above: Performed By: #### G FR, ADIFF, LIP, ANEU, MDW, CBC, CMP #### [address] [address] AST [Catalytic activity/Vol] 54 U/L High 10-40 [facility] ([place] Comment on above: Performed By: #### G , MICHAEL SMITH, MARIAMA KAPLAN, CBC, CMP #### [address] [address] Bili Total 0.9 mg/dL Normal 0.2-1.0 [facility] ([place]) Comment on above: Result Comment: Use of this assay is not recommended for patients undergoing treatment with eltrombopag due to the potential for falsely elevated results. Performed By: #### G LUIS NAVARRO LIP, ANEU, MDW, CBC, CMP #### [address] [address] BUN/Creatinine Ratio 13 ratio Normal 7-27 [facility] ([place]) Comment on above: Performed By: #### G , MICHAEL SMITH ANEU, MDW, CBC, CMP #### [address] [address] Calcium [Mass/Vol] 9.5 mg/dL Normal 8.4-10.2 [facility] ([place]) Comment on above: Performed By: #### G , LUIS, MICHAEL, MARIAMA KAPLAN, CBC, CMP #### [address] [address] Chloride [Moles/Vol] 94 mmol/L Low 98-107 [facility] ([place]) Comment on above: Performed By: #### G FR, ADVERNON, MICHAEL, MD EUSEBIOW, CBC, CMP #### [address] [address] CO2 [Moles/Vol] 24 mmol/L Normal 23-31 [facility] ([place]) Comment on above: Performed By: #### G , LUIS, MICHAEL, EUSEBIO, W, CBC, CMP #### [address] [address] Creatinine [Mass/Vol] 1.82 mg/dL High 0.55-1.02 [facility] ([place]) Comment on above: Performed By: #### G , LUIS, MICHAEL, EUSEBIO, W, CBC, CMP #### [address] [address] Electrolyte Balance 15.0 mEq/L Normal 4.0-15.0 [facility] ([place]) Comment on above: Performed By: #### G , LUIS, MICHAEL, EUSEBIO, W, CBC, CMP #### [address] [address] Globulin 3.1 G/dL Normal [facility] ([place]) Comment on above: Performed By: #### G , LUIS, MICHAEL, MD EUSEBIOW, CBC, CMP #### [address] [address] Glucose [Mass/Vol] 188 mg/dL High 83-110 [facility] ([place]) Comment on above: Performed By: #### G FR, LUIS, MICHAEL, EUSEBIO, MDW, CBC, CMP #### [address] [address] Potassium [Moles/Vol] 3.2 mmol/L Low 3.5-5.1 [facility] ([place]) Comment on above: Performed By: #### G FR, ADIFF, LIP, EUSEBIO, MDW, CBC, CMP #### [address] [address] Sodium [Moles/Vol] 133 mmol/L Low 136-145 [facility] ([place]) Comment on above: Performed By: #### G FR, ADIFF, LIP, EUSEBIO, MDW, CBC, CMP #### [address] [address] Total Protein 6.7 G/dL Normal 6.4-8.2 [facility] ([place] Comment on above: Performed By: #### G FR, ADIFF, LIP, EUSEBIO, MDW, CBC, CMP #### [address] [address] Urea nitrogen [Mass/Vol] 23 mg/dL High 7-18 [facility] ([place] Comment on above: Performed By: #### G FR, LUIS, MICHAEL, ANEU, MDW, CBC, CMP #### [place] [id number] [place], [place] [address] DIMERon 06-03-2022 D-Dimer 523 ng/mL D-DU High 0-230 [facility] ([place]) Comment on above: Result Comment: The result of the D-Dimer test should be evaluated in the context of all the clinical and laboratory data available. In those instances where the laboratory result does not agree with the clinical evaluation, additional tests should be performed accordingly. If the D-Dimer result is used to exclude DVT or PE, the recommended cutoff value is less than 230 ng/mL. The D-Dimer result should not be used alone to rule in DVT/PE, but should be used in conjunction with a clinical pretest probability (PTP)assessment model to exclude venous thromboembolism (VTE) in outpatients suspected of deep venous thrombosis (DVT) and pulmonary embolism (PE). LABORATORYOrdered By: Rhoda Marquis on 06-03-2022 Fibrin D-dimer DDU (PPP) [Mass/Vol] 523 ng/mL D-DU Invalid Interpretation Code 0 - 230 ng/mL D-DU AO [facility] SS LABORATORYOrdered By: SYSTEM SYSTEM on 06-03-2022 Lactate [Moles/Vol] 1.7 mmol/L Invalid Interpretation Code 0.4 - 2.0 mmol/L AO ADM SS Albumin BCP dye [Mass/Vol] 3.6 G/dL Invalid Interpretation Code 3.4 - 4.8 G/dL AO ADM SS Albumin/Globulin [Mass ratio] 1.2 {ratio} Invalid Interpretation Code 1.1 - 2.5 ratio AO ADM SS ALP [Catalytic activity/Vol] 186 U/L Invalid Interpretation Code 40 - 135 U/L AO ADM SS ALT With P-5'-P [Catalytic activity/Vol] 51 U/L Invalid Interpretation Code 14 - 59 U/L AO ADM SS AST With P-5'-P [Catalytic activity/Vol] 54 U/L Invalid Interpretation Code 10 - 40 U/L AO ADM SS Bilirubin [Mass/Vol] 0.9 mg/dL Invalid Interpretation Code 0.2 - 1.0 mg/dL AO ADM SS Calcium [Mass/Vol] 9.5 mg/dL Invalid Interpretation Code 8.4 - 10.2 mg/dL AO ADM SS Chloride [Moles/Vol] 94 mmol/L Invalid Interpretation Code 98 - 107 mmol/L AO ADM SS CO2 [Moles/Vol] 24 mmol/L Invalid Interpretation Code 23 - 31 mmol/L AO ADM SS Creatinine [Mass/Vol] 1.82 mg/dL Invalid Interpretation Code 0.55 - 1.02 mg/dL AO ADM SS Electrolyte Balance 15.0 mEq/L Invalid Interpretation Code 4.0 - 15.0 mEq/L AO ADM SS GFR 33 ml/min/1.73sqm Invalid Interpretation Code AO Chemistry S GFR Non- 27 ml/min/1.73sqm Inval id Interpretation Code AO Chemistry S Globulin 3.1 G/dL Invalid Interpretation Code AO ADM SS Glucose [Mass/Vol] 188 mg/dL Invalid Interpretation Code 83 - 110 mg/dL AO ADM SS Lipase [Catalytic activity/Vol] 41 U/L Invalid Interpretation Code 16 - 77 U/L AO ADM SS Potassium [Moles/Vol] 3.2 mmol/L Invalid Interpretation Code 3.5 - 5.1 mmol/L AO ADM SS Protein [Mass/Vol] 6.7 G/dL Invalid Interpretation Code 6.4 - 8.2 G/dL AO ADM SS Sodium [Moles/Vol] 133 mmol/L Invalid Interpretation Code 136 - 145 mmol/L AO ADM SS Troponin I.cardiac DL <= 0.01 ng/mL [Mass/Vol] 8.1 ng/L Invalid Interpretation Code 0.0 - 51.4 ng/L AO ADM SS Urea nitrogen [Mass/Vol] 23 mg/dL Invalid Interpretation Code 7 - 18 mg/dL AO ADM SS Urea nitrogen/Creatinine [Mass ratio] 13 ratio Invalid Interpretation Code 7 - 27 ratio AO ADM SS LABORATORYOrdered By: Alyce Mederos on 06-03-2022 Basophil, Absolute 0.0 103/mcL Invalid Interpretation Code 0.0 - 0.2 10^3/mcL AO Workflow SS Basophils/100 WBC (Bld) 0.2 % Invalid Interpretation Code 0.0 - 2.5 % AO Workflow SS Eosinophil, Absolute 0.0 103/mcL Invalid Interpretation Code 0.0 - 0.4 10^3/mcL AO Workflow SS Eosinophils/100 WBC (Bld) 0.6 % Invalid Interpretation Code 0.0 - 7.0 % AO Workflow SS Erythrocyte distribution width (RBC) [Ratio] 13.2 % Invalid Interpretation Code 11.5 - 14.5 % AO Workflow SS Hematocrit (Bld) [Volume fraction] 44.1 % Invalid Interpretation Code 37.0 - 47.0 % AO Workflow SS Hemoglobin (Bld) [Mass/Vol] 15.2 G/dL Invalid Interpretation Code 12.0 - 16.0 G/dL AO Workflow SS Lymphocyte, Absolute 1.1 103/mcL Invalid Interpretation Code 0.8 - 3.9 10^3/mcL AO Workflow SS Lymphocytes/100 WBC (Bld) 15.5 % Invalid Interpretation Code 10.0 - 50.0 % AO Workflow SS MCH (RBC) [Entitic mass] 29.4 pg Invalid Interpretation Code 27.0 - 31.2 pg AO Workflow SS MCHC 34.4 G/dL Invalid Interpretation Code 33.0 - 37.0 G/dL AO Workflow SS MCV (RBC) [Entitic vol] 85.3 fL Invalid Interpretation Code 80.0 - 94.0 fL AO Workflow SS Monocyte distribution width Auto (Bld) [Entitic vol] 26.28 Invalid Interpretation Code 0.00 - 20.00 AO Workflow SS Comment on above: Result Comment: For adults in ED, MDW>20.0 may be associated with a higher risk of sepsis during the first 12hrs of hospital admission Monocyte, Absolute 1.0 103/mcL Invalid Interpretation Code 0.2 - 1.0 10^3/mcL AO Workflow SS Monocytes/100 WBC (Bld) 14.3 % Invalid Interpretation Code 1.7 - 13.0 % AO Workflow SS Neutrophil, Absolute 4.9 103/mcL Invalid Interpretation Code 2.9 - 6.2 10^3/mcL AO Workflow SS Neutrophils/100 WBC (Bld) 69.4 % Invalid Interpretation Code 37.0 - 80.0 % AO Workflow SS Platelet mean volume (Bld) [Entitic vol] 9.9 fL Invalid Interpretation Code 7.4 - 10.4 fL AO Workflow SS Platelets (Bld) [#/Vol] 264 103/mcL Invalid Interpretation Code 130 - 400 10^3/mcL AO Workflow SS RBC (Bld) [#/Vol] 5.17 106/mcL Invalid Interpretation Code 4.20 - 5.40 10^6/mcL AO Workflow SS WBC (Bld) [#/Vol] 7.1 103/mcL Invalid Interpretation Code 4.6 - 10.8 10^3/mcL AO Workflow SS LACon 06-03-2022 Lactic Acid Lvl 1.7 mmol/L Normal 0.4-2.0 [facility] ([place]) Comment on above: Performed By: #### G FR, ADIFF, LIP, ANEU, MDW, CBC, CMP #### [address] [address] LIPon 06-03-2022 Lipase Level 41 U/L Normal 16-77 [facility] ([place]) Comment on above: Performed By: #### G FR, ADIFF, LIP, ANEU, MDW, CBC, CMP #### [place] [id number] [place], [place] [address] TROPHSon 06-03-2022 Troponin I High Sensitivity 8.1 ng/L Normal 0.0-51.4 [facility] ([place]) Comment on above: Performed By: #### T [facility] #### [address] [address] XR CHEST 1 VIEWon 06-03-2022 XR CHEST 1 VIEW ORIGINAL EXAMINATION: ONE XRAY VIEW OF THE CHEST 06/03/2022 7:46 pm COMPARISON: None. HISTORY: ORDERING SYSTEM PROVIDED HISTORY: Reason for Exam: pain FINDINGS: There are extensive artifactual densities overlying the right hemithorax, possibly related to clothing or sheets. As visualized: The lungs are without acute focal process. There is no effusion or pneumothorax. The cardiomediastinal silhouette is without acute process. The osseous structures are without acute process. IMPRESSION: No acute process. Limited evaluation due to external artifact. Interpreted by: Ellis Trammell DO Preliminary Report By: Ellis Trammell DO Electronically signed By Ellis Trammell DO Dictated Date: 06/03/2022 8:03:40 PM Prelim Date: 06/03/2022 8:06:19 PM Sign Date: 06/03/2022 8:06:19 PM Ordering Provider: KYREE DAWSON Normal [facility] ([place]) Absolute lymphocyte countOrd ered By: Dr. Cardona on 05-28-2022 Lymphocytes Auto (Unsp spec) [#/Vol] 2.21 10*3/uL 0.83-4.51 [facility] Basophil percentageOrdered B y: Dr. Cardona on 05-28-2022 Basophils/100 WBC (Bld) 0.8 % 0-[address] [facility] Bilirubin [Mass/Vol] 0.90 mg/dL 0.20-1.00 [facility] Comment on above: For patients on eltr ombopag therapy, use of Dimension [place] TBIL is not recommended. Chloride [Moles/Vol] 101 mmol/L 98-107 [facility] Cholesterol [Mass/Vol] 255 mg/dL <200 [facility] Comment on above: <200 mg/dL Desirable 200-240 mg/dL Borderline >240 mg/dL High Risk Eosinophils/100 WBC (Bld) 2.7 % 0-5 [facility] Glucose [Mass/Vol] 180 mg/dL 74-106 [facility] Comment on above: Fasting Glucose resu lt greater than or equal to 126 mg/dL suggests DIABETES MELLITUS per A.D.A. criteria. Neutrophils (Bld) [#/Vol] 5.4 10*3/uL 2.0-7.7 [facility] Neutrophils/100 WBC (Bld) 61.6 % 47-70 [facility] Potassium [Moles/Vol] 4.0 mmol/L 3.5-5.1 [facility] Protein [Mass/Vol] 7.5 g/dL 6.4-8.2 [facility] Sodium [Moles/Vol] 137 mmol/L 136-145 [facility] Triglyceride [Mass/Vol] 356 mg/dL <199 [facility] Comment on above: The drugs N-Acetylcy steine and Metamizole may falsely depress this assay.Serum Triglycerides Reference Interval Normal <150 mg/dL Borderline high 150 - 199 mg/dL High 200 - 499 mg/dL Very High > or = 500 mg/dL WBC (Bld) [#/Vol] 8.8 10*3/uL 4.4-11.0 [facility] Blood erythrocytes count (nu mber/volume)Ordered By: Dr. Cardona on 05-28-2022 RBC (Bld) [#/Vol] 5.36 10*6/uL 4.2-5.[address] [facility] Blood hemoglobin measurement (mass/volume)Ordered By: Dr. Cardona on 05-28-2022 Hemoglobin (Bld) [Mass/Vol] 15.6 g/dL 12.0-15.0 [facility] Blood lymphocytes/100 leukoc ytesOrdered By: Dr. Cardona on 05-28-2022 Lymphocytes/100 WBC (Bld) 25.2 % 19-41 [facility] Blood monocytes/100 leukocyt esOrdered By: Dr. Cardona on 05-28-2022 Monocytes/100 WBC (Bld) 9.1 % 0-[address] [facility] Blood platelet mean volumeOr dered By: Dr. Cardona on 05-28-2022 Platelet mean volume (Bld) [Entitic vol] 11.6 fL 6.2-12.0 [facility] Determination of erythrocyte mean corpuscular volume (MCV)Ordered By: Dr. Cardona on 05-28-2022 MCV (RBC) [Entitic vol] 88.4 fL 81-[address] [facility] Hematocrit Auto (Bld) [Volum e fraction]Ordered By: Dr. Cardona on 05-28-2022 Hematocrit (Bld) [Volume fraction] 47.4 % 37-47 [facility] Laboratory - Chemistry and C hemistry - challengeOrdered By: Dr. Cardona on 05-28-2022 ALP [Catalytic activity/Vol] 115 U/L 45-117 [facility] ALT [Catalytic activity/Vol] 27 U/L 13-56 [facility] CO2 [Moles/Vol] 29.0 mmol/L 21.0-32.0 [facility] Globulin (S) [Mass/Vol] 3.8 g/dL 2.2-4.2 [facility] Urea nitrogen/Creatinine [Mass ratio] 31.0 mg/mg 10-20 [facility] Laboratory - Hematology and Cell countsOrdered By: Dr. Cardona on 05-28-2022 Erythrocyte distribution width (RBC) [Entitic vol] 40.3 fL 35.1-43.9 [facility] Erythrocyte distribution width (RBC) [Ratio] 12.4 % 11.6-14.6 [facility] Immature granulocytes/100 WBC (Bld) 0.600 % 0.0-0.9 [facility] Comment on above: IG% - Immature Granu locytes (promyelocytes, myelocytes and metamyelocytes) > 1% indicates that a LEFT SHIFT is Present. MCH (RBC) [Entitic mass] 29.1 pg 27.0-32.0 [facility] Nucleated RBC/100 WBC (Bld) [Ratio] 0 % 0-5 [facility] MCHC Auto (RBC) [Mass/Vol]Or dered By: Dr. Cardona on 05-28-2022 MCHC (RBC) [Mass/Vol] 32.9 g/dL 32-36 [facility] No Panel InformationOrdered By: Dr. Cardona on 05-28-2022 Estimated GFR (MDRD) Amer 93 mL/min >60 [facility] Comment on above: GFR Calc Estimated GFR (MDRD) Non-Af Amer 77 mL/min >60 [facility] Comment on above: Non- GFR Calc Platelets bldOrdered By: Dr. Cardona on 05-28-2022 Platelets (Bld) [#/Vol] 308 10*3/uL 150-450 [facility] Serum or plasma albumin mackenzie urement (mass/volume)Ordered By: Dr. Cardona on 05-28-2022 Albumin [Mass/Vol] 3.7 g/dL 3.2-5.0 [facility] Serum or plasma albumin/glob ulin mass ratioOrdered By: Dr. Cardona on 05-28-2022 Albumin/Globulin [Mass ratio] 1.0 {ratio} 0.9-2.4 [facility] Serum or plasma calcium mackenzie urement (mass/volume)Ordered By: Dr. Cardona on 05-28-2022 Calcium [Mass/Vol] 10.0 mg/dL 8.5-10.1 [facility] Serum or plasma cholesterol in HDL measurement (mass/volume)Ordered By: Dr. Cardona on 05-28-2022 Cholesterol in HDL [Mass/Vol] 55 mg/dL >40 [facility] Comment on above: The drugs N-Acetylcy steine and Metamizole may falsely depress this assay. Reference Range HDL <40 mg/dL Low HDL Cholesterol HDL >or= 60 mg/dL High HDL Cholesterol Serum or plasma cholesterol in VLDL measurement (mass/volume)Ordered By: Dr. Cardona on 05-28-2022 Cholesterol in VLDL [Mass/Vol] 71 mg/dL 5-40 [facility] Serum or plasma creatinine m easurement (mass/volume)Ordered By: Dr. Cardona on 05-28-2022 Creatinine [Mass/Vol] 0.77 mg/dL 0.55-1.02 [facility] Comment on above: The validity of the calculated GFR & GFRAA in patients over 70 years has not been determined. Clinical correlation is essential. Serum or plasma low density lipoprotein (LDL) cholesterol measurement (mass/volume)Ordered By: Dr. Cardona on 05-28-2022 Cholesterol in LDL [Mass/Vol] 129 mg/dL 0-130 [facility] Serum or plasma urea nitroge n measurement (mass/volume)Ordered By: Dr. Cardona on 05-28-2022 Urea nitrogen [Mass/Vol] 24 mg/dL 7-18 [facility] Thin prep Papanicolaou smear with manual screeningOrdered By: Dr. Cardona on 05-28-2022 Thin prep Papanicolaou smear with manual screening 22 U/L 15-37 [facility] Thin prep Papanicolaou smear with manual screening 7 5-15 [facility] Basophil percentageon 2021 Bilirubin [Mass/Vol] 0.90 mg/dL 0.20-1.00 [facility] Work Phone: Comment on above: For patients on eltr ombopag therapy, use of Dimension [place] TBIL is not recommended. Chloride [Moles/Vol] 99 mmol/L 98-107 [facility] Work Phone: Glucose [Mass/Vol] 129 mg/dL 74-106 [facility] Work Phone: Comment on above: Fasting Glucose resu lt greater than or equal to 126 mg/dL suggests DIABETES MELLITUS per A.D.A. criteria. Potassium [Moles/Vol] 4.5 mmol/L 3.5-5.1 [facility] Work Phone: Comment on above: Slight Hemolysis, Re sult may be falsely increased. Protein [Mass/Vol] 7.9 g/dL 6.4-8.2 [facility] Work Phone: Sodium [Moles/Vol] 136 mmol/L 136-145 [facility] Work Phone: Laboratory - Chemistry and C hemistry - challengeon 05-09-2021 ALP [Catalytic activity/Vol] 128 U/L 45-117 [facility] Work Phone: ALT [Catalytic activity/Vol] 30 U/L 13-56 [facility] Work Phone: CO2 [Moles/Vol] 33.0 mmol/L 21.0-32.0 [facility] Work Phone: Globulin (S) [Mass/Vol] 3.9 g/dL 2.2-4.[address] [facility] Work Phone: Urea nitrogen/Creatinine [Mass ratio] 19.9 mg/mg 10-20 [facility] Work Phone: No Panel Informationon 05-09 Estimated GFR (MDRD) Amer 96 mL/min >60 [facility] Work Phone: Comment on above: GFR Calc Estimated GFR (MDRD) Non-Af Amer 79 mL/min >60 [facility] Work Phone: Comment on above: Non- GFR Calc Serum or plasma albumin mackenzie urement (mass/volume)on 05-09-2021 Albumin [Mass/Vol] 4.0 g/dL 3.2-5.0 [facility] Work Phone: Serum or plasma albumin/glob ulin mass ratioon 05-09-2021 Albumin/Globulin [Mass ratio] 1.0 {ratio} 0.9-2.4 [facility] Work Phone: Serum or plasma calcium mackenzie urement (mass/volume)on 05-09-2021 Calcium [Mass/Vol] 10.2 mg/dL 8.5-10.1 [facility] Work Phone: Serum or plasma creatinine m easurement (mass/volume)on 05-09-2021 Creatinine [Mass/Vol] 0.75 mg/dL 0.55-1.02 [facility] Work [facility]: Comment on above: The validity of the calculated GFR & GFRAA in patients over 70 years has not been determined. Clinical correlation is essential. Serum or plasma urea nitroge n measurement (mass/volume)on 05-09-2021 Urea nitrogen [Mass/Vol] 15 mg/dL 7-18 [facility] Work Phone: Thin prep Papanicolaou smear with manual screeningon 05-09-2021 Thin prep Papanicolaou smear with manual screening 19 U/L 15-37 [facility] Work Phone: Comment on above: Slight Hemolysis, Re sult may be falsely increased. Thin prep Papanicolaou smear with manual screening 4 5-15 [facility] Work Phone: Whole blood hemoglobin A1c/t otal hemoglobin ratio (mass fraction)on 05-09-2021 HbA1c (Bld) [Mass fraction] 6.7 % 3.8-5.6 [facility] Work Phone: Comment on above: Normal < 5.7 % Predi abetic 5.7 - 6.4 % Diabetic >or= 6.5 % Please note range changes. Vital Signs Date Time Vital Sign Value Performing Clinician Facility 09-29-2024 13:30-0400 Body height 157.[address] Cole Cardona DO Work Phone: [facility] 09-29-2024 13:30-0400 Body temperature 98.6 [degF] Dr. Cole Cardona DO Work Phone: [facility] 09-29-2024 13:30-0400 Diastolic blood pressure 74 mm[Hg] Dr. Cole Cardona DO Work Phone: [facility] 09-29-2024 13:30-0400 Heart rate 110 /min Dr. Cole Cardona DO Work Phone: [facility] 09-29-2024 13:30-0400 Respiratory rate 16 /min Dr. Cole Cardona DO Work Phone: [facility] 09-29-2024 13:30-0400 Systolic blood pressure 110 mm[Hg] Dr. Cole Cardona DO Work Phone: [facility] 09-22-2024 14:42-0400 Body height 157.[address] Cole Cardona DO Work Phone: [facility] 09-22-2024 14:38-0400 Body temperature 98 [degF] Dr. Cole Cardona DO Work Phone: [facility] 09-22-2024 14:38-0400 Diastolic blood pressure 69 mm[Hg] Dr. Cole Cardona DO Work Phone: [facility] 09-22-2024 14:38-0400 Heart rate 96 /min Dr. Cole Cardona DO Work Phone: [facility] 09-22-2024 14:38-0400 Respiratory rate 16 /min Dr. Cole Cardona DO Work Phone: [facility] 09-22-2024 14:38-0400 SaO2% (BldA) [Mass fraction] 93 % Dr. Cole Cardona DO Work Phone: [facility] 09-22-2024 14:38-0400 Systolic blood pressure 108 mm[Hg] Dr. Cole Cardona DO Work Phone: [facility] 09-22-2024 13:28-0400 Body height 157.[address] Cole Cardona DO Work Phone: [facility] 09-22-2024 13:28-0400 Body temperature 98 [degF] Dr. Cole Cardona DO Work Phone: [facility] 09-22-2024 13:28-0400 Diastolic blood pressure 69 mm[Hg] Dr. Cole Cardona DO Work Phone: [facility] 09-22-2024 13:28-0400 Heart rate 96 /min Dr. Cole Cardona DO Work Phone: [facility] 09-22-2024 13:28-0400 Respiratory rate 16 /min Dr. Cole Cardona DO Work Phone: [facility] 09-22-2024 13:28-0400 SaO2% (BldA) [Mass fraction] 93 % Dr. Cole Cardona DO Work Phone: [facility] 09-22-2024 13:28-0400 Systolic blood pressure 108 mm[Hg] Dr. Cole Cardona DO Work Phone: [facility] 09-08-2024 11:00-0400 Diastolic blood pressure 63 mm[Hg] Dr. Cole Cardona DO Work Phone: [facility] 09-08-2024 11:00-0400 Heart rate 100 /min Dr. Cole Cardona DO Work Phone: [facility] 09-08-2024 11:00-0400 Respiratory rate 18 /min Dr. Cole Cardona DO Work Phone: [facility] 09-08-2024 11:00-0400 SaO2% (BldA) [Mass fraction] 93 % Dr. Cole Cardona DO Work Phone: [facility] 09-08-2024 11:00-0400 Systolic blood pressure 108 mm[Hg] Dr. Cole Cardona DO Work Phone: [facility] 09-08-2024 10:45-0400 Inhaled oxygen flow rate 2 L/min Dr. Cole Cardona DO Work Phone: [facility] 09-08-2024 09:27-0400 Body mass index (BMI) [Ratio] 30.2 kg/m2 Dr. Cole Cardona DO Work Phone: [facility] 09-08-2024 09:27-0400 Body temperature 98 [degF] Dr. Cole Cardona DO Work Phone: [facility] 09-08-2024 09:27-0400 Body weight 74.[address] Cole Cardona DO Work Phone: [facility] 08-24-2024 14:42-0400 Body height 157.[address] Cole Cardona DO Work Phone: [facility] 08-24-2024 14:42-0400 Body mass index (BMI) [Ratio] 30.2 kg/m2 Dr. Cole Cardona DO Work Phone: [facility] 08-24-2024 14:42-0400 Body temperature 98.4 [degF] Dr. Cole Cardona DO Work Phone: [facility] 08-24-2024 14:42-0400 Body weight 74.[address] Cole Cardona DO Work Phone: [facility] 08-24-2024 14:42-0400 Diastolic blood pressure 74 mm[Hg] Dr. Cole Cardona DO Work Phone: [facility] 08-24-2024 14:42-0400 Heart rate 101 /min Dr. Cole Cardona DO Work Phone: [facility] 08-24-2024 14:42-0400 Respiratory rate 18 /min Dr. Cole Cardona DO Work Phone: [facility] 08-24-2024 14:42-0400 SaO2% (BldA) [Mass fraction] 93 % Dr. Cole Cardona DO Work Phone: [facility] 08-24-2024 14:42-0400 Systolic blood pressure 111 mm[Hg] Dr. Cole Cardona DO Work Phone: [facility] 08-16-2024 10:19-0400 Body height 157.[address] Cole Cardona DO Work Phone: [facility] 08-16-2024 10:19-0400 Body mass index (BMI) [Ratio] 30.7 kg/m2 Dr. Cole Cardona DO Work Phone: [facility] 08-16-2024 10:19-0400 Body temperature 97.3 [degF] Dr. Cole Cardona DO Work Phone: [facility] 08-16-2024 10:19-0400 Body weight 76.[address] Cole Cardona DO Work Phone: [facility] 08-16-2024 10:19-0400 Diastolic blood pressure 74 mm[Hg] Dr. Cloe Cardona DO Work Phone: [facility] 08-16-2024 10:19-0400 Heart rate 111 /min Dr. Cole Cardona DO Work Phone: [facility] 08-16-2024 10:19-0400 Respiratory rate 16 /min Dr. Cole Cardona DO Work Phone: [facility] 08-16-2024 10:19-0400 SaO2% (BldA) [Mass fraction] 94 % Dr. Cole Cardona DO Work Phone: [facility] 08-16-2024 10:19-0400 Systolic blood pressure 114 mm[Hg] Dr. Cole Cardona DO Work Phone: [facility] 07-28-2024 14:33-0400 Body height 157.[address] Cole Cardona DO Work Phone: [facility] 07-28-2024 14:33-0400 Body mass index (BMI) [Ratio] 31.7 kg/m2 Dr. Cole Cardona DO Work Phone: [facility] 07-28-2024 14:33-0400 Body temperature 97.6 [degF] Dr. Cole Cardona DO Work Phone: [facility] 07-28-2024 14:33-0400 Body weight 78.[address] Cole Cardona DO Work Phone: [facility] 07-28-2024 14:33-0400 Diastolic blood pressure 78 mm[Hg] Dr. Cole Cardona DO Work Phone: [facility] 07-28-2024 14:33-0400 Heart rate 89 /min Dr. Cole Cardona DO Work Phone: [facility] 07-28-2024 14:33-0400 Respiratory rate 16 /min Dr. Cole Cardona DO Work Phone: [facility] 07-28-2024 14:33-0400 SaO2% (BldA) [Mass fraction] 91 % Dr. Cole Cardona DO Work Phone: [facility] 07-28-2024 14:33-0400 Systolic blood pressure 106 mm[Hg] Dr. Cole Cardona DO Work Phone: [facility] 07-20-2024 08:43-0400 Body temperature 98.2 [degF] Dr. Cole Cardona DO Work Phone: [facility] 07-20-2024 08:43-0400 Diastolic blood pressure 64 mm[Hg] Dr. Cole Cardona DO Work Phone: [facility] 07-20-2024 08:43-0400 Heart rate 86 /min Dr. Cole Cardona DO Work Phone: [facility] 07-20-2024 08:43-0400 Respiratory rate 18 /min Dr. Cole Cardona DO Work Phone: [facility] 07-20-2024 08:43-0400 SaO2% (BldA) [Mass fraction] 93 % Dr. Cole Cardona DO Work Phone: [facility] 07-20-2024 08:43-0400 Systolic blood pressure 104 mm[Hg] Dr. Cole Cardona DO Work Phone: [facility] 07-14-2024 13:31-0400 Body height 157.[address] Cole Cardona DO Work Phone: [facility] 07-14-2024 13:31-0400 Body weight 77.[address] Cole Cardona DO Work Phone: [facility] 07-13-2024 09:50-0400 Body mass index (BMI) [Ratio] 31.3 kg/m2 Dr. Cole Cardona DO Work Phone: [facility] 06-26-2024 13:14-0400 Blood Pressure Cuff Size ZULEMA JURADO MD [facility] 06-26-2024 13:14-0400 Blood Pressure Location ZULEMA JURADO MD [address] [place] [address] 06-26-2024 13:14-0400 Blood Pressure Method ZULEMA JURADO MD [address] [place] [address] 06-26-2024 13:14-0400 Body temperature 98.06 [degF] ZULEMA JURADO MD [address] [place] [address] 06-26-2024 13:14-0400 Body weight 80 kg ZULEMA JURADO MD [address] [place] [address] 06-26-2024 13:14-0400 Diastolic Blood Pressure Non-Invasive 83 mm[Hg] ZULEMA JURADO MD [address] 06-26-2024 13:14-0400 Heart rate 109 /min ZULEMA JURADO MD [address] [place] [address] 06-26-2024 13:14-0400 Respiratory rate 18 /min ZULEMA JURADO MD [address] [place] [address] 06-26-2024 13:14-0400 Systolic Blood Pressure Non-Invasive 125 mm[Hg] ZULEMA JURADO MD [address] [place] [address] 06-23-2024 14:43-0400 Body mass index (BMI) [Ratio] 32.3 kg/m2 Dr. Cole Cardona DO Work Phone: [facility] 06-23-2024 14:43-0400 Body temperature 98.2 [degF] Dr. Cole Cardona DO Work Phone: [facility] 06-23-2024 14:43-0400 Body weight 80.[address] Cole Cardona DO Work Phone: [facility] 06-23-2024 14:43-0400 Diastolic blood pressure 78 mm[Hg] Dr. Cole Cardona DO Work Phone: [facility] 06-23-2024 14:43-0400 Heart rate 90 /min Dr. Cole Cardona DO Work Phone: [facility] 06-23-2024 14:43-0400 Respiratory rate 18 /min Dr. Cole Cardona DO Work Phone: [facility] 06-23-2024 14:43-0400 SaO2% (BldA) [Mass fraction] 93 % Dr. Cole Cardona DO Work Phone: [facility] 06-23-2024 14:43-0400 Systolic blood pressure 134 mm[Hg] Dr. Cole Cardona DO Work Phone: [facility] 06-17-2024 13:22-0400 Body temperature 97.2 [degF] Dr. Cole Cardona DO Work Phone: [facility] 06-17-2024 13:22-0400 Diastolic blood pressure 68 mm[Hg] Dr. Cole Cardona DO Work Phone: [facility] 06-17-2024 13:22-0400 Heart rate 92 /min Dr. Cole Cardona DO Work Phone: [facility] 06-17-2024 13:22-0400 Respiratory rate 18 /min Dr. Cole Cardona DO Work Phone: [facility] 06-17-2024 13:22-0400 SaO2% (BldA) [Mass fraction] 94 % Dr. Cole Cardona DO Work Phone: [facility] 06-17-2024 13:22-0400 Systolic blood pressure 118 mm[Hg] Dr. Cole Cardona DO Work Phone: [facility] 06-15-2024 05:41-0400 Inhaled oxygen flow rate 2 L/min Dr. Cole Cardona DO Work Phone: [facility] 06-13-2024 23:42-0400 Body height 157.[address] Cole Cardona DO Work Phone: [facility] 06-13-2024 23:42-0400 Body mass index (BMI) [Ratio] 33 kg/m2 Dr. Cole Cardona DO Work Phone: [facility] 06-13-2024 23:42-0400 Body weight 81.[address] oCle Cardona DO Work Phone: [facility] 06-13-2024 23:00-0400 Diastolic blood pressure 66 mm[Hg] Dr. Cole Cardona DO Work Phone: [facility] 06-13-2024 23:00-0400 SaO2% (BldA) [Mass fraction] 92 % Dr. Cole Cardona DO Work Phone: [facility] 06-13-2024 23:00-0400 Systolic blood pressure 146 mm[Hg] Dr. Cole Cardona DO Work Phone: [facility] 06-13-2024 22:13-0400 Body temperature 98.6 [degF] Dr. Cole Cardona DO Work Phone: [facility] 06-13-2024 22:13-0400 Heart rate 120 /min Dr. Cole Cardona DO Work Phone: [facility] 06-13-2024 22:13-0400 Respiratory rate 23 /min Dr. Cole Cardona DO Work Phone: [facility] 06-13-2024 19:47-0400 Body height 157.[address] Cole Cardona DO Work Phone: [facility] 06-12-2024 03:00-0400 Body temperature 98.7 [degF] Dr. Cole Cardona DO Work Phone: [facility] 06-12-2024 03:00-0400 Diastolic blood pressure 60 mm[Hg] Dr. Cole Cardona DO Work Phone: [facility] 06-12-2024 03:00-0400 Heart rate 108 /min Dr. Cole Cardona DO Work Phone: [facility] 06-12-2024 03:00-0400 Respiratory rate 16 /min Dr. Cole Cardona DO Work Phone: [facility] 06-12-2024 03:00-0400 SaO2% (BldA) [Mass fraction] 98 % Dr. Cole Cardona DO Work Phone: [facility] 06-12-2024 03:00-0400 Systolic blood pressure 114 mm[Hg] Dr. Cole Cardona DO Work Phone: [facility] 06-11-2024 21:04-0400 Body mass index (BMI) [Ratio] 32.7 kg/m2 Dr. Cole Cardona DO Work Phone: [facility] 06-11-2024 21:04-0400 Body weight 81.[address] Cole Cardona DO Work Phone: [facility] 06-11-2024 20:49-0400 Body height 157.[address] Cole Cardona DO Work Phone: [facility] 06-02-2024 14:30-0400 Body temperature 97.52 [degF] XAVIER NEWMAN MD [facility] 06-02-2024 14:30-0400 Diastolic Blood Pressure Non-Invasive 80 mm[Hg] XAVIER NEWMAN MD [facility] 06-02-2024 14:30-0400 Heart rate 122 /min XAVIER NEWMAN MD [facility] 06-02-2024 14:30-0400 Respiratory rate 20 /min XAVIER NEWMAN MD [facility] 06-02-2024 14:30-0400 Systolic Blood Pressure Non-Invasive 124 mm[Hg] XAVIER NEWMAN MD [facility] 06-02-2024 14:07-0400 Heart rate 118 /min XAVIER NEWMAN MD [facility] 06-02-2024 14:07-0400 Diastolic Blood Pressure Non-Invasive 65 mm[Hg] XAVIER NEWMAN MD [facility] 06-02-2024 14:07-0400 Mean blood pressure 79 mm[Hg] XAVIER NEWMAN MD [facility] 06-02-2024 14:07-0400 Respiratory rate 16 /min XAVIER NEWMAN MD [facility] 06-02-2024 14:07-0400 Systolic Blood Pressure Non-Invasive 120 mm[Hg] XAVIER NEWMAN MD [facility] 06-02-2024 13:37-0400 Heart rate 121 /min XAVIER NEWMAN MD [facility] 06-02-2024 13:37-0400 Body temperature 98.96 [degF] XAVIER NEWMAN MD [facility] 06-02-2024 13:37-0400 Diastolic Blood Pressure Non-Invasive 67 mm[Hg] XAVIER NEWMAN MD [facility] 06-02-2024 13:37-0400 Mean blood pressure 82 mm[Hg] XAVIER NEWMAN MD [facility] 06-02-2024 13:37-0400 Systolic Blood Pressure Non-Invasive 120 mm[Hg] XAVIER NEWMAN MD [facility] 06-02-2024 13:22-0400 Mean blood pressure 85 mm[Hg] XAVIER NEWMAN MD [facility] 06-02-2024 13:22-0400 Heart rate 126 /min XAVIER NEWMAN MD [facility] 06-02-2024 12:50-0400 Heart rate 101 /min XAVIER NEWMAN MD [facility] 06-02-2024 12:37-0400 Body temperature 98.6 [degF] XAVIER NEWMAN MD [facility] 06-02-2024 12:35-0400 Respiratory Rate - Anes 0 br/min XAVIER NEWMAN MD [facility] 06-02-2024 12:30-0400 Respiratory Rate - Anes 14 br/min XAVIER NEWMAN MD [facility] 06-02-2024 12:25-0400 Respiratory Rate - Anes 14 br/min XAVIER NEWMAN MD [facility] 06-02-2024 09:51-0400 Body height 157.5 cm XAVIER NEWMAN MD [facility] 06-02-2024 09:51-0400 Body weight 81 kg XAVIER NEWMAN MD [facility] 05-18-2024 14:39-0400 Body mass index (BMI) [Ratio] 32.5 kg/m2 Dr. Cole Cardona DO Work Phone: [facility] 05-18-2024 14:39-0400 Body temperature 98.2 [degF] Dr. Cole Cardona DO Work Phone: [facility] 05-18-2024 14:39-0400 Body weight 80.[address] Cole Cardona DO Work Phone: [facility] 05-18-2024 14:39-0400 Diastolic blood pressure 78 mm[Hg] Dr. Cole Cardona DO Work Phone: [facility] 05-18-2024 14:39-0400 Heart rate 102 /min Dr. Cole Cardona DO Work Phone: [facility] 05-18-2024 14:39-0400 Respiratory rate 16 /min Dr. Cole Cardona DO Work Phone: [facility] 05-18-2024 14:39-0400 SaO2% (BldA) [Mass fraction] 92 % Dr. Cole Cardona DO Work Phone: [facility] 05-18-2024 14:39-0400 Systolic blood pressure 132 mm[Hg] Dr. Cole Cardona DO Work Phone: [facility] 05-13-2024 11:46-0400 Blood Pressure Cuff Size XAVIER NEWMAN MD [facility] 05-13-2024 11:46-0400 Blood Pressure Location XAVIER NEWMAN MD [facility] 05-13-2024 11:46-0400 Blood Pressure Method XAVIER NEWMAN MD [facility] 05-13-2024 11:46-0400 Body height 153 cm XAVIER NEWMAN MD [facility] 05-13-2024 11:46-0400 Body temperature 98.24 [degF] XAVIER NEWMAN MD [facility] 05-13-2024 11:46-0400 Body weight 80.1 kg XAVIER NEWMAN MD [facility] 05-13-2024 11:46-0400 Body weight 34.22 kg/m2 XAVIER NEWMAN MD [facility] 05-13-2024 11:46-0400 Diastolic Blood Pressure Non-Invasive 80 mm[Hg] XAVIER NEWMAN MD [facility] 05-13-2024 11:46-0400 Heart rate 106 /min XAVIER NEWMAN MD [facility] 05-13-2024 11:46-0400 Systolic Blood Pressure Non-Invasive 130 mm[Hg] XAVIER NEWMAN MD [facility] 03-23-2024 14:41-0500 Body mass index (BMI) [Ratio] 32.1 kg/m2 Dr. Cole Cardona DO Work Phone: [facility] 03-23-2024 14:41-0500 Body temperature 97.1 [degF] Dr. Cole Cardona DO Work Phone: [facility] 03-23-2024 14:41-0500 Body weight 79.[address] Cole Cardona DO Work Phone: [facility] 03-23-2024 14:41-0500 Diastolic blood pressure 72 mm[Hg] Dr. Cole Cardona DO Work Phone: [facility] 03-23-2024 14:41-0500 Heart rate 102 /min Dr. Cole Cardona DO Work Phone: [facility] 03-23-2024 14:41-0500 Respiratory rate 16 /min Dr. Cole Cardona DO Work Phone: [facility] 03-23-2024 14:41-0500 SaO2% (BldA) [Mass fraction] 97 % Dr. Cole Cardona DO Work Phone: [facility] 03-23-2024 14:41-0500 Systolic blood pressure 118 mm[Hg] Dr. oCle Cardona DO Work Phone: [facility] 03-02-2024 13:15-0500 Body mass index (BMI) [Ratio] 33.1 kg/m2 Dr. Cole Cardona DO Work Phone: [facility] 03-02-2024 13:15-0500 Body temperature 98.3 [degF] Dr. Cole Cardona DO Work Phone: [facility] 03-02-2024 13:15-0500 Body weight 82.[address] Cole Cardona DO Work Phone: [facility] 03-02-2024 13:15-0500 Diastolic blood pressure 78 mm[Hg] Dr. Cole Cardona DO Work Phone: [facility] 03-02-2024 13:15-0500 Heart rate 107 /min Dr. Cole Cardona DO Work Phone: [facility] 03-02-2024 13:15-0500 Respiratory rate 16 /min Dr. Cole Cardona DO Work Phone: [facility] 03-02-2024 13:15-0500 SaO2% (BldA) [Mass fraction] 95 % Dr. Cole Cardona DO Work Phone: [facility] 03-02-2024 13:15-0500 Systolic blood pressure 122 mm[Hg] Dr. Cole Cardona DO Work Phone: [facility] 02-20-2024 17:09-0500 Diastolic Blood Pressure Non-Invasive 71 mm[Hg] DR MARK MARI MD [facility] 02-20-2024 17:09-0500 Respiratory rate 16 /min DR MARK MARI MD [facility] 02-20-2024 17:09-0500 Systolic Blood Pressure Non-Invasive 120 mm[Hg] DR MARK MARI MD [facility] 02-20-2024 15:04-0500 Diastolic Blood Pressure Non-Invasive 65 mm[Hg] DR MARK MARI MD [facility] 02-20-2024 15:04-0500 Respiratory rate 16 /min DR MARK MARI MD [facility] 02-20-2024 15:04-0500 Systolic Blood Pressure Non-Invasive 131 mm[Hg] DR MARK MARI MD [facility] 02-20-2024 12:39-0500 Body temperature 98.06 [degF] DR MARK MARI MD [facility] 02-20-2024 12:39-0500 Body weight 83.[address] MARK MARI MD [facility] 02-20-2024 12:39-0500 Diastolic Blood Pressure Non-Invasive 69 mm[Hg] DR MARK MARI MD [facility] 02-20-2024 12:39-0500 Heart rate 97 /min DR MARK MARI MD [facility] 02-20-2024 12:39-0500 Respiratory rate 16 /min DR MARK MARI MD [facility] 02-20-2024 12:39-0500 Systolic Blood Pressure Non-Invasive 125 mm[Hg] DR MARK MARI MD [facility] 01-03-2024 06:45-0500 Body temperature 99.86 [degF] DR ANNETTE ZAZUETA MD [address] [place] [address] 01-03-2024 06:45-0500 Diastolic Blood Pressure Non-Invasive 65 mm[Hg] DR ANNETTE ZAZUETA MD [address] 01-03-2024 06:45-0500 Heart rate 104 /min DR ANNETTE ZAZUETA MD [address] 01-03-2024 06:45-0500 Reason For Taking VItal Signs DR ANNETTE ZAZUETA MD [address] [place] [address] 01-03-2024 06:45-0500 Respiratory rate 18 /min DR ANNETTE ZAZUETA MD [address] 01-03-2024 06:45-0500 Systolic Blood Pressure Non-Invasive 121 mm[Hg] DR ANNETTE ZAZUETA MD [address] 01-02-2024 23:32-0500 Blood Pressure Cuff Size DR ANNETTE ZAZUETA MD [address] [place] [address] 01-02-2024 23:32-[address] ANNETTE ZAZUETA MD [address] [place] [address] 01-02-2024 23:32-[address] ANNETTE ZAZUETA MD [address] [place] [address] 01-02-2024 23:32-0500 Body temperature 98.24 [degF] DR ANNETTE ZAZUETA MD [address] [place] [address] 01-02-2024 23:32-0500 Diastolic Blood Pressure Non-Invasive 74 mm[Hg] DR ANNETTE ZAZUETA MD [address] [place] [address] 01-02-2024 23:32-0500 Heart rate 88 /min DR ANNETTE ZAZUETA MD [address] [place] [address] 01-02-2024 23:32-0500 Reason For Taking VItal Signs DR ANNETTE ZAZUETA MD [address] 01-02-2024 23:32-0500 Respiratory rate 18 /min DR ANNETTE ZAZUETA MD [address] 01-02-2024 23:32-0500 Systolic Blood Pressure Non-Invasive 130 mm[Hg] DR ANNETTE ZAZUETA MD [address] [place] [address] 01-02-2024 15:11-0500 Blood Pressure Cuff Size DR ANNETTE ZAZUETA MD [address] [place] [address] 01-02-2024 15:11-[address] ANNETTE ZAZUETA MD [address] [place] [address] 01-02-2024 15:11-[address] ANNETTE ZAZUETA MD [address] [place] [address] 01-02-2024 15:11-0500 Body temperature 97.88 [degF] DR ANNETTE ZAZUETA MD [address] [place] [address] 01-02-2024 15:11-0500 Diastolic Blood Pressure Non-Invasive 70 mm[Hg] DR ANNETTE ZAZUETA MD [address] [place] [address] 01-02-2024 15:11-0500 Heart rate 97 /min DR ANNETTE ZAZUETA MD [address] [place] [address] 01-02-2024 15:11-0500 Reason For Taking VItal Signs DR ANNETTE ZAZUETA MD [address] [place] [address] 01-02-2024 15:11-0500 Respiratory rate 18 /min DR ANNETTE ZAZUETA MD [address] [place] [address] 01-02-2024 15:11-0500 Systolic Blood Pressure Non-Invasive 128 mm[Hg] DR ANNETTE ZAZUETA MD [address] [place] [address] 01-02-2024 07:39-0500 Blood Pressure Cuff Size DR ANNETTE ZAZUETA MD [address] [place] [address] 01-02-2024 07:39-[address] ANNETTE ZAZUETA MD [address] [place] [address] 01-02-2024 07:39-[address] ANNETTE ZAZUETA MD [address] [place] [address] 01-01-2024 15:51-0500 Mean blood pressure 80 mm[Hg] DR ANNETTE ZAZUETA MD [address] [place] [address] 01-01-2024 07:14-0500 Heart rate 92 /min DR ANNETTE ZAZUETA MD [address] [place] [address] 01-01-2024 03:39-0500 Heart rate 90 /min DR ANNETTE ZAZUETA MD [address] [place] [address] 01-01-2024 03:39-0500 Mean blood pressure 76 mm[Hg] DR ANNETTE ZAZUETA MD [address] [place] [address] 01-01-2024 00:31-0500 Heart rate 93 /min DR ANNETTE ZAZUETA MD [address] [place] [address] 01-01-2024 00:31-0500 Signs/Symptoms Transfusion Reaction DR ANNETTE ZAZUETA MD [address] [place] [address] 12-31-2023 23:36-0500 Diastolic blood pressure 74 mm[Hg] DR ANNETTE ZAZUETA MD [address] [place] [address] 12-31-2023 23:36-0500 Signs/Symptoms Transfusion Reaction DR ANNETTE ZAZUETA MD [address] [place] [address] 12-31-2023 23:36-0500 Systolic blood pressure 129 mm[Hg] DR ANNETTE ZAZUETA MD [address] [place] [address] 12-31-2023 23:35-0500 Signs/Symptoms Transfusion Reaction No DR ANNETTE ZAZUETA MD [address] [place] [address] 12-31-2023 21:00-0500 Diastolic blood pressure 64 mm[Hg] DR ANNETTE ZAZUETA MD [address] [place] [address] 12-31-2023 21:00-0500 Systolic blood pressure 133 mm[Hg] DR ANNETTE ZAZUETA MD [address] [place] [address] 12-31-2023 20:28-0500 Heart rate 96 /min DR ANNETTE ZAZUETA MD [address] [place] [address] 12-31-2023 19:27-0500 Body temperature 99.32 [degF] DR ANNETTE ZAZUETA MD [address] [place] [address] 12-31-2023 19:27-0500 Heart rate 100 /min DR ANNETTE ZAZUETA MD [address] [place] [address] 12-31-2023 17:59-0500 Body height [address] ANNETTE ZAZUETA MD [address] [place] [address] 12-31-2023 17:59-0500 Body weight 85.[address] ANNETTE ZAZUETA MD [address] [place] [address] 12-31-2023 17:59-0500 Body weight 33.32 kg/m2 DR ANNETTE ZAZUETA MD [address] [place] [address] 12-31-2023 17:41-0500 Heart rate 106 /min DR ANNETTE ZAZUETA MD [address] [place] [address] 12-31-2023 17:41-0500 Mean blood pressure 102 mm[Hg] DR ANNETTE ZAZUETA MD [address] [place] [address] 12-31-2023 16:53-0500 Diastolic Blood Pressure Non-Invasive 67 mm[Hg] VANIA MENDOZA MD [facility] 12-31-2023 16:53-0500 Heart rate 96 /min VANIA MENDOZA MD [facility] 12-31-2023 16:53-0500 Reason For Taking VItal Signs VANIA MENDOZA MD [facility] 12-31-2023 16:53-0500 Respiratory rate 20 /min VANIA MENDOZA MD [facility] 12-31-2023 16:53-0500 Systolic Blood Pressure Non-Invasive 107 mm[Hg] VANIA MENDOZA MD [facility] 12-31-2023 16:02-0500 Diastolic Blood Pressure Non-Invasive 82 mm[Hg] VANIA MENDOZA MD [facility] 12-31-2023 16:02-0500 Heart rate 100 /min VANIA MENDOZA MD [facility] 12-31-2023 16:02-0500 Respiratory rate 20 /min VANIA MENDOZA MD [facility] 12-31-2023 16:02-0500 Systolic Blood Pressure Non-Invasive 118 mm[Hg] VANIA MENDOZA MD [facility] 12-31-2023 14:31-0500 Diastolic Blood Pressure Non-Invasive 68 mm[Hg] VANIA MENDOZA MD [facility] 12-31-2023 14:31-0500 Heart rate 94 /min VANIA MENDOZA MD [facility] 12-31-2023 14:31-0500 Reason For Taking VItal Signs VANIA MENDOZA MD [facility] 12-31-2023 14:31-0500 Respiratory rate 20 /min VANIA MENDOZA MD [facility] 12-31-2023 14:31-0500 Systolic Blood Pressure Non-Invasive 110 mm[Hg] VANIA MENDOZA MD [facility] 12-31-2023 12:03-0500 Blood Pressure Location VANIA MENDOZA MD [facility] 12-31-2023 12:03-0500 Blood Pressure Method VANIA MENDOZA MD [facility] 12-31-2023 11:03-0500 Blood Pressure Location VANIA MENDOZA MD [facility] 12-31-2023 11:03-0500 Blood Pressure Method VANIA MENDOZA MD [facility] 12-31-2023 10:05-0500 Blood Pressure Location VANIA MENDOZA MD [facility] 12-31-2023 10:05-0500 Blood Pressure Method VANIA MENDOZA MD [facility] 12-31-2023 06:49-0500 Mean blood pressure 74 mm[Hg] VANIA MENDOZA MD [facility] 12-31-2023 06:49-0500 Reason For Taking VItal Signs VANIA MENDOZA MD [facility] 12-31-2023 05:53-0500 Mean blood pressure 89 mm[Hg] VANIA MENDOZA MD [facility] 12-31-2023 04:33-0500 Body height 160 cm VANIA MENDOZA MD [facility] 12-31-2023 04:33-0500 Body temperature 98.42 [degF] VANIA MENDOZA MD [facility] 12-31-2023 04:33-0500 Body weight 86.4 kg VANIA MENDOZA MD [facility] 12-31-2023 04:33-0500 Heart rate 114 /min VANIA MENDOZA MD [facility] 06-10-2023 13:24-0400 Diastolic blood pressure 68 mm[Hg] Dr. Cole Cardona Work Phone: [facility] 06-10-2023 13:24-0400 Systolic blood pressure 111 mm[Hg] Dr. Cole Cardona Work Phone: [facility] 06-02-2023 13:03-0400 Body height 157.[address] Cole Cardona Work Phone: [facility] 06-02-2023 13:03-0400 Body mass index (BMI) [Ratio] 38.5 kg/m2 Dr. Cole Cardona Work Phone: [facility] 06-02-2023 13:03-0400 Body temperature 97.8 [degF] Dr. Cole Cardona Work Phone: [facility] 06-02-2023 13:03-0400 Body weight 95.[address] Cole Cardona Work Phone: [facility] 06-02-2023 13:03-0400 Diastolic blood pressure 89 mm[Hg] Dr. Cole Cardona Work Phone: [facility] 06-02-2023 13:03-0400 Heart rate 96 /min Dr. Cole Cardona Work Phone: [facility] 06-02-2023 13:03-0400 Respiratory rate 17 /min Dr. Cole Cardona Work Phone: [facility] 06-02-2023 13:03-0400 SaO2% (BldA) [Mass fraction] 93 % Dr. Cole Cardona Work Phone: [facility] 06-02-2023 13:03-0400 Systolic blood pressure 150 mm[Hg] Dr. Cole Cardona Work Phone: [facility] 05-13-2023 14:28-0400 Body temperature 98.71 [degF] Heather Shah APRN.CNP Work Phone: [facility] 05-13-2023 14:28-0400 Body weight 97.1 kg Heather Shah APRN.JOURNEYMAN MACHINIST Work Phone: [facility] 05-13-2023 14:28-0400 Diastolic blood pressure 80 mm[Hg] Heather Shah APRN.JOURNEYMAN MACHINIST Work Phone: [facility] 05-13-2023 14:28-0400 Heart rate 99 /min Heather Shah APRN.JOURNEYMAN MACHINIST Work Phone: [facility] 05-13-2023 14:28-0400 Respiratory rate 18 /min Heather Shah APRN.JOURNEYMAN MACHINIST Work Phone: [facility] 05-13-2023 14:28-0400 SaO2% (BldA) [Mass fraction] 96 % Heather Shah APRN.JOURNEYMAN MACHINIST Work Phone: [facility] 05-13-2023 14:28-0400 Systolic blood pressure 128 mm[Hg] Heather Shah APRN.JOURNEYMAN MACHINIST Work Phone: [facility] 03-19-2023 16:23-0500 Body height 157.[address] Cole Cardona Work Phone: [facility] 03-19-2023 16:23-0500 Body mass index (BMI) [Ratio] 38.9 kg/m2 Dr. Cole Cardona Work Phone: [facility] 03-19-2023 16:23-0500 Body temperature 97 [degF] Dr. Cole Cardona Work Phone: [facility] 03-19-2023 16:23-0500 Body weight 96.[address] Cole Cardona Work Phone: [facility] 03-19-2023 16:23-0500 Diastolic blood pressure 84 mm[Hg] Dr. Cole Cardona Work Phone: [facility] 03-19-2023 16:23-0500 Heart rate 94 /min Dr. Cole Cardona Work Phone: [facility] 03-19-2023 16:23-0500 Respiratory rate 14 /min Dr. Cole Cardona Work Phone: [facility] 03-19-2023 16:23-0500 SaO2% (BldA) [Mass fraction] 90 % Dr. Cole Cardona Work Phone: [facility] 03-19-2023 16:23-0500 Systolic blood pressure 120 mm[Hg] Dr. Cole Cardona Work Phone: [facility] 12-31-2022 14:56-0500 Body height 157.[address] Cole Cardona Work Phone: [facility] 12-31-2022 14:56-0500 Body mass index (BMI) [Ratio] 38 kg/m2 Dr. Cole Cardona Work Phone: [facility] 12-31-2022 14:56-0500 Body temperature 97.5 [degF] Dr. Cole Cardona Work Phone: [facility] 12-31-2022 14:56-0500 Body weight 94.[address] Cole Cardona Work Phone: [facility] 12-31-2022 14:56-0500 Diastolic blood pressure 92 mm[Hg] Dr. Cole Cardona Work Phone: [facility] 12-31-2022 14:56-0500 Heart rate 82 /min Dr. Cole Cardona Work Phone: [facility] 12-31-2022 14:56-0500 Respiratory rate 18 /min Dr. Cole Cardona Work Phone: [facility] 12-31-2022 14:56-0500 SaO2% (BldA) [Mass fraction] 91 % Dr. Cole Cardona Work Phone: [facility] 12-31-2022 14:56-0500 Systolic blood pressure 146 mm[Hg] Dr. Cole Cardona Work Phone: [facility] 07-24-2022 14:21-0400 Body height 157.[address] Cole Cardona Work Phone: [facility] 07-24-2022 14:21-0400 Body mass index (BMI) [Ratio] 38.6 kg/m2 Dr. Cole Cardona Work Phone: [facility] 07-24-2022 14:21-0400 Body temperature 96.7 [degF] Dr. Cole Cardona Work Phone: [facility] 07-24-2022 14:21-0400 Body weight 95.[address] Cole Cardona Work Phone: [facility] 07-24-2022 14:21-0400 Diastolic blood pressure 82 mm[Hg] Dr. Cole Cardona Work Phone: [facility] 07-24-2022 14:21-0400 Heart rate 96 /min Dr. Cole Cardona Work Phone: [facility] 07-24-2022 14:21-0400 Respiratory rate 18 /min Dr. Cole Cardona Work Phone: [facility] 07-24-2022 14:21-0400 SaO2% (BldA) [Mass fraction] 94 % Dr. Cole Cardona Work Phone: [facility] 07-24-2022 14:21-0400 Systolic blood pressure 128 mm[Hg] Dr. Cole Cardona Work Phone: [facility] 06-11-2022 15:59-0400 Body mass index (BMI) [Ratio] 39.3 kg/m2 Dr. Cole Cardona Work Phone: [facility] 06-11-2022 15:59-0400 Body temperature 97.9 [degF] Dr. Cole Cardona Work Phone: [facility] 06-11-2022 15:59-0400 Body weight 97.[address] Cole Cardona Work Phone: [facility] 06-11-2022 15:59-0400 Diastolic blood pressure 82 mm[Hg] Dr. Cole Cardona Work Phone: [facility] 06-11-2022 15:59-0400 Heart rate 91 /min Dr. Cole Cardona Work Phone: [facility] 06-11-2022 15:59-0400 Respiratory rate 14 /min Dr. Cole Cardona Work Phone: [facility] 06-11-2022 15:59-0400 SaO2% (BldA) [Mass fraction] 94 % Dr. Cole Cardona Work Phone: [facility] 06-11-2022 15:59-0400 Systolic blood pressure 126 mm[Hg] Dr. Cole Cardona Work Phone: [facility] 06-05-2022 15:19-0400 Body temperature 98.06 [degF] ROGERIO MATTHEW TECHNICAL TESTING ENGINEER-JOURNEYMAN MACHINIST [facility] 06-05-2022 15:19-0400 Diastolic Blood Pressure Non-Invasive 66 1 ROGERIO MATTHEW TECHNICAL TESTING ENGINEER-JOURNEYMAN MACHINIST [facility] 06-05-2022 15:19-0400 Heart rate 105 /min ROGERIO MATTHEW TECHNICAL TESTING ENGINEER-JOURNEYMAN MACHINIST [facility] 06-05-2022 15:19-0400 Reason For Taking VItal Signs ROGERIO MATTHEW TECHNICAL TESTING ENGINEER-JOURNEYMAN MACHINIST [facility] 06-05-2022 15:19-0400 Respiratory rate 18 /min ROGERIO MATTHEW TECHNICAL TESTING ENGINEER-JOURNEYMAN MACHINIST [facility] 06-05-2022 15:19-0400 Systolic Blood Pressure Non-Invasive 127 1 ROGERIO MATTHEW TECHNICAL TESTING ENGINEER-JOURNEYMAN MACHINIST [facility] 06-05-2022 11:12-0400 Body temperature 98.06 [degF] ROGERIO MATTHEW TECHNICAL TESTING ENGINEER-JOURNEYMAN MACHINIST [facility] 06-05-2022 11:12-0400 Diastolic Blood Pressure Non-Invasive 70 1 ROGERIO MATTHEW APRN-JOURNEYMAN MACHINIST [facility] 06-05-2022 11:12-0400 Heart rate 90 /min ROGERIO VIPUL TECHNICAL TESTING ENGINEER-JOURNEYMAN MACHINIST [facility] 06-05-2022 11:12-0400 Reason For Taking VItal Signs ROGERIO MATTHEW TECHNICAL TESTING ENGINEER-JOURNEYMAN MACHINIST [facility] 06-05-2022 11:12-0400 Respiratory rate 16 /min ROGERIO MATTHEW TECHNICAL TESTING ENGINEER-JOURNEYMAN MACHINIST [facility] 06-05-2022 11:12-0400 Systolic Blood Pressure Non-Invasive 114 1 ROGERIO MATTHEW TECHNICAL TESTING ENGINEER-JOURNEYMAN MACHINIST [facility] 06-05-2022 07:16-0400 Body temperature 98.24 [degF] ROGERIO MATTHEW TECHNICAL TESTING ENGINEER-JOURNEYMAN MACHINIST [facility] 06-05-2022 07:16-0400 Diastolic Blood Pressure Non-Invasive 71 1 ROGERIO MATTHEW TECHNICAL TESTING ENGINEER-JOURNEYMAN MACHINIST [facility] 06-05-2022 07:16-0400 Heart rate 92 /min ROGERIO MATTHEW TECHNICAL TESTING ENGINEER-JOURNEYMAN MACHINIST [facility] 06-05-2022 07:16-0400 Reason For Taking VItal Signs ROGERIO MATTHEW TECHNICAL TESTING ENGINEER-JOURNEYMAN MACHINIST [facility] 06-05-2022 07:16-0400 Respiratory rate 14 /min ROGERIO MATTHEW TECHNICAL TESTING ENGINEER-JOURNEYMAN MACHINIST [facility] 06-05-2022 07:16-0400 Systolic Blood Pressure Non-Invasive 113 1 ROGERIO MATTHEW TECHNICAL TESTING ENGINEER-JOURNEYMAN MACHINIST [facility] 06-05-2022 03:53-0400 Heart rate 93 /min ROGERIO MATTHEW TECHNICAL TESTING ENGINEER-JOURNEYMAN MACHINIST [facility] 06-04-2022 23:33-0400 Blood Pressure Location ROGERIO VIPUL TECHNICAL TESTING ENGINEER-JOURNEYMAN MACHINIST [facility] 06-04-2022 23:33-0400 Blood Pressure Method ROGERIO MATTHEW TECHNICAL TESTING ENGINEER-JOURNEYMAN MACHINIST [facility] 06-04-2022 23:33-0400 Heart rate 89 /min ROGERIO VIPUL TECHNICAL TESTING ENGINEER-JOURNEYMAN MACHINIST [facility] 06-04-2022 20:16-0400 Heart rate 88 /min ROGERIO VIPUL TECHNICAL TESTING ENGINEER-JOURNEYMAN MACHINIST [facility] 06-04-2022 02:48-0400 Blood Pressure Location ROGERIO MATTHEW TECHNICAL TESTING ENGINEER-JOURNEYMAN MACHINIST [facility] 06-04-2022 02:48-0400 Blood Pressure Method ROGERIO VIPUL TECHNICAL TESTING ENGINEER-JOURNEYMAN MACHINIST [facility] 06-03-2022 22:36-0400 Body height 157.5 cm ROGERIO MATTHEW TECHNICAL TESTING ENGINEER-JOURNEYMAN MACHINIST [facility] 06-03-2022 22:36-0400 Body weight 97.1 kg ROGERIO MATTHEW TECHNICAL TESTING ENGINEER-JOURNEYMAN MACHINIST [facility] 06-03-2022 22:36-0400 Body weight 39.14 kg/m2 ROGERIO MATTHEW TECHNICAL TESTING ENGINEER-JOURNEYMAN MACHINIST [facility] 06-03-2022 22:34-0400 Blood Pressure Location ROGERIO MATTHEW TECHNICAL TESTING ENGINEER-JOURNEYMAN MACHINIST [facility] 06-03-2022 22:34-0400 Blood Pressure Method ROGERIO MATTHEW TECHNICAL TESTING ENGINEER-JOURNEYMAN MACHINIST [facility] 06-03-2022 16:50-0400 Body height 157.5 cm ROGERIO MATTHEW TECHNICAL TESTING ENGINEER-JOURNEYMAN MACHINIST [facility] 06-03-2022 16:50-0400 Body temperature 96.98 [degF] ROGERIO MATTHEW TECHNICAL TESTING ENGINEER-JOURNEYMAN MACHINIST [facility] 06-03-2022 16:50-0400 Body weight 92.6 kg ROGERIO GEORGEPRITI TECHNICAL TESTING ENGINEER-JOURNEYMAN MACHINIST [facility] 05-28-2022 15:07-0400 Body height 157.[address] Cole Cardona Work Phone: [facility] 05-28-2022 15:07-0400 Body mass index (BMI) [Ratio] 38.7 kg/m2 Dr. Cole Cardona Work Phone: [facility] 05-28-2022 15:07-0400 Body temperature 98 [degF] Dr. Cole Cardona Work Phone: [facility] 05-28-2022 15:07-0400 Body weight 96.[address] Cole Cardona Work Phone: [facility] 05-28-2022 15:07-0400 Diastolic blood pressure 74 mm[Hg] Dr. Cole Cardona Work Phone: [facility] 05-28-2022 15:07-0400 Heart rate 89 /min Dr. Cole Cardona Work Phone: [facility] 05-28-2022 15:07-0400 Respiratory rate 12 /min Dr. Cole Cardona Work Phone: [facility] 05-28-2022 15:07-0400 SaO2% (BldA) [Mass fraction] 96 % Dr. Cole Cardona Work Phone: [facility] 05-28-2022 15:07-0400 Systolic blood pressure 126 mm[Hg] Dr. Cole Cardona Work Phone: [facility] 05-09-2021 14:30-0400 Body temperature 96.6 [degF] Dr. Cole Cardona Work Phone: [facility] Work Phone: 05-09-2021 14:30-0400 Body weight 97.[address] Cole Cardona Work Phone: [facility] Work Phone: 05-09-2021 14:30-0400 Diastolic blood pressure 90 mm[Hg] Dr. Cole Cardona Work Phone: [facility] Work Phone: 05-09-2021 14:30-0400 Heart rate 96 /min Dr. Cole Cardona Work Phone: [facility] Work Phone: 05-09-2021 14:30-0400 Respiratory rate 16 /min Dr. Cole Cardona Work Phone: [facility] Work Phone: 05-09-2021 14:30-0400 SaO2% (BldA) [Mass fraction] 99 % Dr. Cole Cardona Work Phone: [facility] Work Phone: 05-09-2021 14:30-0400 Systolic blood pressure 122 mm[Hg] Dr. Cole Cardona Work Phone: [facility] Work Phone: 03-07-2021 12:56-0500 Body temperature 96.3 [degF] Dr. Cole Cardona Work Phone: [facility] Work Phone: 03-07-2021 12:56-0500 Body weight 102.[address] Cole Cardona Work Phone: [facility] Work Phone: 03-07-2021 12:56-0500 Diastolic blood pressure 60 mm[Hg] Dr. Cole Cardona Work Phone: [facility] Work Phone: 03-07-2021 12:56-0500 Heart rate 74 /min Dr. Cole Cardona Work Phone: [facility] Work Phone: 03-07-2021 12:56-0500 Respiratory rate 16 /min Dr. Cole Cardona Work Phone: [facility] Work Phone: 03-07-2021 12:56-0500 SaO2% (BldA) [Mass fraction] 99 % Dr. Cole Cardona Work Phone: [facility] Work Phone: 03-07-2021 12:56-0500 Systolic blood pressure 120 mm[Hg] Dr. Cole Cardona Work Phone: [facility] Work Phone: Encounters Encounter Date Encounter Type Care Provider Facility Start: 10-06-2024 ambulatory [facility] Facility: [facility] Start: 09-30-2024 ambulatory [facility] Facility: [facility] Start: 09-29-2024 End: 09-29-[address] Cole Cardona DO Work Phone: [facility] Start: 09-29-2024 End: 09-29[facility]2024 [facility] Start: 09-23-2024 ambulatory [facility] Facility: [facility] Start: 09-23-2024 Dr. Lew CARDENASW [facility] Start: 09-22-2024 End: 09-22-2024 [facility] Start: 09-22-2024 End: 09-22-[address] Cole Cardona DO Work Phone: [facility] Start: 09-09-2024 ambulatory Lew Annika Facility: [facility] Start: 09-09-2024 Dr. Lew CARDENASW [facility] Start: 09-08-2024 ambulatory Lew Roblero Facility: [facility] Start: 09-08-2024 Dr. Lew Roblero DO -[facility] Start: 09-08-2024 End: 09-08-2024 Dr. Brice David MD -[facility] Work Phone: Start: 09-07-2024 End: 09-08-2024 ambulatory Brice David Facility:[facility] Start: 09-07-2024 Dr. Lew Roblero DO -[facility] Start: 08-31-2024 ambulatory Lew Roblero Facility: [facility] Start: 08-31-2024 Dr. Lew Roblero DO -[facility] Start: 08-25-2024 ambulatory Cole Li y:[facility] Start: 08-24-2024 End: 08-24-[address] Lew Roblero DO -[facility] Work Phone: Start: 08-24-2024 End: 08-24-2024 Dr. Lew Roblero DO [facility] Work Phone: Start: 08-24-2024 End: 08-24-[address] Cole Cardona DO Work Phone: [facility] Start: 08-16-2024 End: 08-16-[address] Brice David MD -[facility] Work Phone: Start: 08-16-2024 End: 08-16-2024 Dr. Brice David MD -[facility] Work Phone: Start: 08-16-2024 End: 08-16-[address] Cole Cardona DO Work Phone: [facility] Work Phone: Start: 07-28-2024 End: 07-28-[address] Cole Hackett DO -[facility] Work Phone: Start: 07-28-2024 End: 07-28-2024 Dr. Cole Hackett DO -[facility] Work Phone: Start: 07-28-2024 End: 07-28-[address] Cole Cardona DO Work Phone: [facility] Work Phone: Start: 06-30-2024 End: 07-20-2024 Evaluation and management of inpatient Dr. Silvestre Garcia MD -[facility] Start: 06-30-2024 End: 07-20-2024 Dr. Silvestre Garcia MD -[facility] Start: 06-26-2024 End: 06-26-2024 Emergency department patient visit ZULEMA JURADO MD [facility] Start: 06-23-2024 End: 06-23-[address] Cole Hackett DO -[facility] Work Phone: Start: 06-23-2024 End: 06-23-2024 Dr. Cole Hackett DO -[facility] Work Phone: Start: 06-23-2024 End: 06-23-2024 ambulatory Cole Cardona Facility:[facility] Start: 06-17-2024 Non-patient / Non-visit [facility] Work Phone: Start: 06-17-2024 Dr. [facility]neal [facility] Work Phone: Start: 06-16-2024 Non-patient / Non-visit [facility]. [facility] Work Phone: Start: 06-16-2024 Dr. Curt [facility]al [facility] Work Phone: Start: 06-15-2024 Non-patient / Non-visit Dr. [facility] Work Phone: Start: 06-15-2024 Dr. Curt [facility]al [facility] Work Phone: Start: 06-14-2024 Non-patient / Non-visit Stanislaw Catarina malik DO -[facility] Start: 06-14-2024 Stanislaw Naylor DO -[facility] Start: 06-14-2024 ambulatory Cole Cardona Facilit y:[facility] Start: 06-14-2024 End: 06-17-2024 Evaluation and management of inpatient Dr. Curt Henderson MD -[facility] Work Phone: Start: 06-14-2024 End: 06-17-2024 Dr. Curt Henderson MD -[facility] Work Phone: Start: 06-14-2024 Non-patient / Non-visit Dr. Curt Henderson MD -[facility] Work Phone: Start: 06-14-2024 Dr. Curt Henderson MD -[facility] Work Phone: Start: 06-13-2024 ambulatory Curt Henderson [facility]: [facility] [place] Start: 06-13-2024 Evaluation and management of inpatient Dr. Art Rivas DO -Medical Surgical 3 Work Phone: Start: 06-13-2024 Non-patient / Non-visit Dr. Vieyra [facility] Work Phone: Start: 06-13-[address] Jorge Cardona DO Work Phone: [facility] Work Phone: Start: 06-13-2024 Dr. Art Rivas [facility] Work Phone: Start: 06-11-2024 End: 06-12-2024 Rodriguez Braxton DO -Emergency Departmen t Work Phone: Start: 06-11-2024 End: 06-12-2024 Emergency department patient visit Dr. Cole Cardona DO Work Phone: -Emergency Department Work Phone: Start: 06-10-2024 End: 06-10-2024 Emergency department patient visit COLE CARDONA DO Facility:[facility] Start: 06-02-2024 End: 06-02-2024 ambulatory XAVIER NEWMAN MD Facility:A Start: 06-02-2024 End: 06-02-2024 SAME DAY STAY XAVIER NEWMAN MD [facility] Start: 05-25-2024 End: 05-25-2024 ambulatory COLE CARDONA DO Facility:[facility] Start: 05-18-2024 End: 05-18-[address] Cole Hackett DO -[facility] Work Phone: Start: 05-18-2024 End: 05-18-2024 ambulatory Cole Cardona Facility:[facility] Start: 05-13-2024 End: 05-13-2024 Admission to establishment XAVIER NEWMAN MD [facility] Start: 05-13-2024 End: 05-13-2024 ambulatory XAVIER NEWMAN MD Facility:[facility] Start: 03-23-2024 End: 03-23-[address] Cole Hackett DO -[facility] Work Phone: Start: 03-23-2024 End: 03-23-2024 ambulatory Cole Cardona Facility:[facility] Start: 03-02-2024 End: 03-02-[address] Cole Hackett DO -[facility] Work Phone: Start: 03-02-2024 End: 03-02-2024 ambulatory Cole Cardona Facility:[facility] Start: 03-02-2024 End: 03-02-2024 ambulatory Cole Cardona Facility:[facility] Start: 02-25-2024 ambulatory Cole Cardona Facilit y:[facility] Start: 02-20-2024 End: 02-20-2024 Emergency department patient visit DR MARK MARI MD [facility] Start: 02-16-2024 ambulatory Brayden Terry Facility :[facility] Start: 02-04-2024 End: 02-04-2024 ambulatory Cole Cardona Facility:[facility] Start: 02-03-2024 End: 02-03-2024 ambulatory Cole Cardona Facility:[facility] Start: 01-14-2024 ambulatory Cole Hackett [facility] Facilit y:[facility] Start: 12-31-2023 End: 01-03-2024 Evaluation and management of inpatient DR ANNETTE ZAZUETA MD [facility] Start: 12-31-2023 End: 12-31-2023 Emergency department patient visit VANIA MENDOZA MD [facility] Start: 12-22-2023 End: 12-22-2023 ambulatory Cole Cardona Facility:[facility] Start: 12-15-2023 End: 12-15-2023 ambulatory Cole Cardona Facility:[facility] Start: 11-26-2023 End: 11-26-2023 ambulatory Cole Cardona Facility:[facility] Start: 10-28-2023 End: 10-28-2023 ambulatory Cole Cardona Facility:[facility] Start: 06-17-2023 End: 06-17-[address] Cole Cardona Work Phone: [facility] Work Phone: Start: 06-17-2023 End: 06-17-[address] Cole Cardona Work Phone: [facility]-Pulmonary Services/Neurology Work Phone: Start: 06-10-2023 End: 06-10-[address] Cole Cardona Work Phone: [facility] Work Phone: Start: 06-02-2023 End: 06-02-[address] Cole Cardona Work Phone: [facility] Work Phone: Start: 05-19-2023 End: 05-24-[address] Cole Cardona Work Phone: [facility] Work Phone: Start: 05-19-2023 End: 05-24-[address] [facility] Work [facility]: Start: 05-13-2023 End: 05-13-2023 ambulatory COLE CARDONA Facility:[facility] Start: 05-13-2023 End: 05-13-2023 Subsequent hospital visit by physician Xr [facility] Work Phone: Radiology Comment on above: Acute cough [R05.1] Start: 05-13-2023 End: 05-13-2023 Patient encounter procedure Heather Shah APRN.[facility] Work Phone: [facility] Comment on above: Acute cough (Primary Dx) Start: 04-07-2023 End: 04-24-[address] Cole Cardona Work Phone: [facility] Work Phone: Start: 04-07-2023 End: 04-24-[address] Cole Cardona [facility] Work [facility]: Start: 03-19-2023 End: 03-19-[address] Cole Cardona Work Phone: [facility] Work Phone: Start: 03-19-2023 End: 03-19-[address] Cole Cardona Work Phone: [facility] Work Phone: Start: 03-19-2023 End: 03-19-[address] Cole Cardona [facility] Work [facility]: Start: 03-17-2023 End: 03-17-2023 ambulatory COLE ACRDONA Facility:[facility] Start: 03-17-2023 End: 03-17-2023 Subsequent hospital visit by physician Xr [facility] Work Phone: Radiology Comment on above: Acute cough [R05.1] Start: 02-19-2023 End: 02-23-[address] Cole Cardona [facility] Work [facility]: Start: 12-31-2022 End: 12-31-[address] Cole Cardona Work Phone: [facility] Work Phone: Start: 12-31-2022 End: 12-31-[address] Cole Cardona Work Phone: [facility] Work Phone: Start: 12-16-2022 End: 12-16-2022 ambulatory [facility] Work Phone: Start: 12-16-2022 End: 12-16-2022 Discharged Recurring [facility] Work Phone: Start: 11-18-2022 End: 11-18-2022 ambulatory [facility] Work Phone: Start: 11-18-2022 End: 11-18-2022 Discharged Recurring [facility] Work Phone: Start: 10-14-2022 End: 10-14-2022 Discharged Recurring [facility] Work Phone: Start: 09-16-2022 End: 09-23-2022 Discharged Recurring [facility] Work Phone: Start: 08-23-2022 End: 08-23-2022 Discharged Recurring [facility] Work Phone: Start: 08-14-2022 End: 08-14-[address] Cole Cardona Work Phone: [facility] Work Phone: Start: 08-14-2022 End: 08-14-[address] Cole Cardona Work Phone: [facility] Start: 07-24-2022 End: 07-24-[address] Cole Cardona Work Phone: [place] Start: 06-11-2022 End: 06-11-[address] Cole Cardona Work Phone: [place] Start: 06-03-2022 End: 06-05-2022 Evaluation and management of inpatient COLE CARDONA DO Facility:[facility] Start: 06-03-2022 End: 06-05-2022 Evaluation and management of inpatient [facility]OGERIO MATTHEW [facility] Start: 05-28-2022 End: 05-28-[address] Cole Cardona Work Phone: [facility] Work Phone: Start: 05-28-2022 End: 05-28-[address] Cole Cardona Work Phone: [facility] [place] Start: 05-28-2022 End: 05-28-[address] Cole Cardona Work Phone: [place] Start: 05-09-2021 End: 05-09-[address] Cole Cardona Work Phone: [facility] [place] Start: 03-07-2021 End: 03-07-[address] Cole Cardona Work Phone: [facility] Procedures Date Procedure Procedure Detail Performing Clinician Start: 09-22-2024 Blood count smear rscp w/mnl difrntl wbc count Dr. Cole Cardona DO Work Phone: Start: 09-22-2024 Mean corpuscular hem oglobin concentration determination Dr. Cole Cardona DO Work Phone: Start: 09-22-2024 Nucleated red blood cell count procedure Dr. Cole Cardona DO Work Phone: Start: 09-22-2024 Platelet mean volume determination Dr. Cole Cardona DO Work Phone: Start: 09-08-2024 Dr. Tasha Cardona DO Work Phone: Start: 07-15-2024 Blood count smear mc rscp w/mnl difrntl wbc count Dr. Cole Cardona DO Work Phone: Start: 07-15-[address] Cole Cardona DO Work Phone: Start: 07-15-2024 Mean corpuscular hem oglobin concentration determination Dr. Cole Cardona DO Work Phone: Start: 07-15-2024 Nucleated red blood cell count procedure Dr. Cole Cardona DO Work Phone: Start: 07-15-2024 Platelet mean volume determination Dr. Cole Cardona DO Work Phone: Start: 07-11-2024 Plain X-ray of shoulder Dr. Cole Cardona DO Work Phone: Start: 07-09-2024 X-ray of chest, PA a nd lateral views Dr. Cole Cardona DO Work Phone: Start: 07-02-[address] Cole Cardona DO Work Phone: Start: 07-02-2024 Total cholesterol:HD L ratio measurement Dr. Cole Cardona DO Work Phone: Start: 06-17-[address] Cole Cardona DO Work Phone: Start: 06-15-[address] Giselle Cardona DO Work Phone: Comment on above: No monoclonality det ected. Start: 06-14-2024 Mean corpuscular hem oglobin concentration determination Dr. Cole Cardona DO Work Phone: Start: 06-14-2024 Platelet mean volume determination Dr. Cole Cardona DO Work Phone: Start: 06-13-2024 Blood count smear [facility] w/mnl difrntl wbc count Dr. Cole Cardona DO Work Phone: Start: 06-13-2024 Nucleated red blood cell count procedure Dr. Cole Cardona DO Work Phone: Start: 06-13-2024 Electrophoresis: [id number] Dr. Cole Cardona DO Work Phone: Start: 06-13-2024 Electrophoresis: [id number] Dr. Cole Cardona DO Work Phone: Start: 06-13-2024 Electrophoresis: gigi ma globulin Dr. Cole Cardona DO Work Phone: Start: 06-13-[address] M measurement Dr[address] Cole Cardona DO Work Phone: Start: 06-13-[address] Giselle Cardona DO Work Phone: Comment on above: No monoclonality det ected. Start: 06-13-2024 Urine lambda light c french measurement Dr. Cole Cardona DO Work Phone: Start: 06-12-2024 CT angiography of ch est with contrast Dr. Cole Cardona DO Work Phone: Start: 06-11-2024 Urine microscopy: red cells Dr. Cole Cardona DO Work Phone: Start: 06-11-2024 Urnls dip stick/tabl et reagent auto microscopy Dr. Cole Cardona DO Work Phone: Start: 06-11-2024 Plain chest X-ray Dr. Seth Cardona DO Work Phone: Start: 06-11-[address] Miranda DO Work Phone: Start: 06-11-2024 Computed tomography of abdomen and pelvis with intravenous contrast Dr. Cole Cardona DO Work Phone: Start: 06-11-2024 Blood count smear [facility] w/mnl difrntl wbc count Dr. Cole Cardona DO Work Phone: Start: 06-11-[address] Cole Cardona DO Work Phone: Start: 06-11-2024 Mean corpuscular hem oglobin concentration determination Dr. Cole Cardona DO Work Phone: Start: 06-11-2024 Nucleated red blood cell count procedure Dr. Cole Cardona DO Work Phone: Start: 06-11-2024 Platelet mean volume determination Dr. Cole Cardona DO Work Phone: Start: 06-11-[address] Dioni Cardona DO Work Phone: Start: 06-11-[address] Dioni Cardona DO Work Phone: Start: 06-11-2024 Calculation of international normalized ratio Dr. Cole Cardona DO Work Phone: Start: 05-13-2023 Radiologic exam ches t 2 views Heather Shah TECHNICAL TESTING ENGINEER.JOURNEYMAN MACHINIST Work Phone: Start: 03-17-2023 Radiologic exam ches t 2 views Heather Shah TECHNICAL TESTING ENGINEER.JOURNEYMAN MACHINIST Work Phone: Start: 02-24-1965 Tonsillectomy ROGERIO MARCOS TECHNICAL TESTING ENGINEER-JOURNEYMAN MACHINIST Arthroplasty of knee ROGERIO MATTHEW TECHNICAL TESTING ENGINEER-JOURNEYMAN MACHINIST Comment on above: bilateral Hernia of abdominal cavity (disorder) ROGERIO MATTHEW TECHNICAL TESTING ENGINEER-JOURNEYMAN MACHINIST Comment on above: umbilical Repair of umbilical hernia N GAYLE NEWMAN MD Total replacement of left knee joint XAVIER NEWMAN MD Total replacement of right knee joint XAVIER NEWMAN MD Plan of Treatment Date Care Activity Detail Author Start: 09-22-2024 CBC W Auto Differential panel - Blood [facility] Start: 09-22-2024 Comprehensive metabolic 2000 panel - Serum or Plasma [facility] Start: 09-22-2024 Lactate dehydrogenase measurement [facility] Start: 09-22-2024 End: 09-22-2024 [facility] Start: 09-08-2024 Biopsy muscle percutaneous needle [facility] Start: 09-08-2024 Catheterization of vein [facility] Start: 09-08-2024 Oxygen therapy [facility] Start: 09-08-2024 Patient discharge [facility] Start: 09-08-2024 Vital signs measurements [facility] Start: 07-28-2024 Patient referral [facility] [employer] Work Phone: Start: 07-20-2024 Development of care plan [facility] Start: 07-20-2024 Patient discharge [facility] Start: 07-16-2024 Referral to service [facility] Start: 07-12-2024 [facility] Start: 07-08-2024 [facility] Start: 07-01-2024 Development of care plan [facility] Start: 07-01-2024 Developing a treatment plan [facility] Start: 06-30-2024 [facility] Start: 06-30-2024 Admission procedure [facility] Start: 06-30-2024 Introduction of urinary catheter [facility] Start: 06-30-2024 Measuring intake and output [facility] Start: 06-30-2024 Patient referral to dietitian [facility] Start: 06-30-2024 Referral to occupational therapist [facility] Start: 06-30-2024 Referral to service [facility] Start: 06-30-2024 Vital signs measurements [facility] Start: 06-30-2024 [facility] Start: 06-30-2024 Following clinical pathway protocol [facility] Start: 06-17-2024 End: 06-17-2024 Referral to service [facility] Start: 06-17-2024 Patient discharge [facility] Start: 06-15-2024 Urine protein electrophoresis [facility] Start: 06-14-2024 End: 06-14-2024 [facility] Start: 06-14-2024 Admission procedure [facility] Start: 06-14-2024 Referral to gastroenterology service [facility] Start: 06-14-2024 Chart related administrative procedure [facility] Start: 06-13-2024 Following clinical pathway protocol [facility] Start: 06-13-2024 Ambulation without limitation [facility] Start: 06-13-2024 Assessment of risk of venous thromboembolism [facility] Start: 06-13-2024 Insertion of catheter into peripheral vein [facility] Start: 06-13-2024 Measuring intake and output [facility] Start: 06-13-2024 Providing care according to standard [facility] Start: 06-13-2024 Referral to occupational therapist [facility] Start: 06-13-2024 Referral to service [facility] Start: 06-13-2024 [facility] Start: 06-13-2024 Immunoglobulin measurement [facility] Start: 06-13-2024 Serum immunofixation [facility] Start: 06-13-2024 Urine protein electrophoresis [facility] Start: 06-13-2024 [facility] Start: 06-13-2024 Hospital admission, emergency, from emergency room, medical nature [facility] Start: 06-13-2024 Verification routine [facility] Start: 06-13-2024 Admission procedure [facility] Start: 06-13-2024 Immunoglobulin measurement [facility] Start: 06-13-2024 Serum immunofixation [facility] Start: 06-13-2024 [facility] Start: 06-12-2024 [facility] Start: 06-12-2024 [facility] Start: 06-11-2024 Plain chest X-ray Chest 1 View (Portable) [facility] Start: 06-11-2024 XR Chest Single view [facility] Start: 06-11-2024 Computed tomography of abdomen and pelvis with intravenous contrast Abdomen/Pelvis W IV Cont ONLY [facility] Start: 06-11-2024 CT Abdomen and Pelvis W contrast IV [facility] Start: 06-11-2024 Bacteria identified in Blood by Culture Blood Culture [facility] Start: 06-11-2024 Bacteria identified in Urine by Culture Urine Culture [facility] Start: 06-11-2024 Emergency department visit low/moder severity [facility] Start: 06-11-2024 Iv infusion hydration each additional hour [facility] Start: 06-11-2024 Iv infusion hydration initial 31 min-1 hour [facility] Start: 06-11-2024 Urine culture [facility] Start: 06-11-2024 [facility] Start: 03-23-2024 Patient referral [facility] Work Phone: Start: 10-26-2023 Covid-19 Vaccine ( season) Covid-19 Vaccine () [facility] Start: 10-26-2023 Influenza vaccination Influenza Vaccine (#1) [facility] Start: 02-24-2023 Advance Directive Discussion Advance Directive Discussion [facility] Start: 02-24-2023 Depression Assessment Depression Assessment [facility] Start: 10-25-2022 Covid-19 Vaccine ( season) Covid-19 Vaccine ( season) [facility] Start: 10-25-2022 Influenza vaccination Influenza Vaccine (#1) [facility] Start: 07-24-2022 Patient referral [facility] Work Phone: Start: 2009 Pneumococcal Vaccine: 65+ (1 of 1 - PCV) Pneumococcal Vaccine: 65+ (1 of 1 - PCV) [facility] Start: 2009 Screening for osteoporosis Bone Density Screening [facility] Start: 2004 RSV Vaccine (1 - 1-dose 60+ series) RSV Vaccine (1 - 1-dose 60+ series) [facility] Start: 1994 Shingrix Vaccine (1 of 2) Shingrix Vaccine (1 of 2) [facility] Start: 1989 Diabetes Screening Diabetes Screening [facility] Start: 10-02-1963 Urine microalbumin profile DTaP,Tdap,Td Vaccine (1 - Tdap) [facility] Start: 1962 Anxiety Screening Anxiety Screening [facility] Start: 1962 Depression Screening Depression Screening [facility] Start: 1962 Hepatitis C screening Hepatitis C Screening [facility] 24 hour urine measurement [facility] 24 hour urine measurement [facility] Alanine aminotransfe rase [Enzymatic activity/volume] in Serum or Plasma [facility] Albumin [Mass/volume ] in Serum or Plasma [facility] Albumin [Mass/volume ] in Urine [facility] Albumin [Mass/volume ] in Urine [facility] Albumin/Globulin [Ma ss Ratio] in Serum or Plasma by Electrophoresis [facility] Albumin/Globulin [Ma ss Ratio] in Serum or Plasma by Electrophoresis [facility] Alkaline phosphatase [Enzymatic activity/volume] in Serum or Plasma [facility] Anion gap in Serum o r Plasma [facility] Bilirubin, total measurement [facility] BUN/Creatinine ratio [facility] Calcium [Mass/volume ] in Serum or Plasma [facility] Carbon dioxide, tota l [Moles/volume] in Central venous blood [facility] Carcinoembryonic Ag [Mass/volume] in Serum or Plasma [facility] Carcinoembryonic Ag [Mass/volume] in Serum or Plasma [facility] CBC W Auto Different ial panel - Blood [facility] Comprehensive metabo lic 2000 panel - Serum or Plasma [facility] Creatinine [Mass/vol ume] in Serum or Plasma [facility] Creatinine [Mass/vol ume] in Urine collected for unspecified duration [facility] Electrophoresis: albumin [facility] Electrophoresis: albumin [facility] Electrophoresis: [id number] [facility] Electrophoresis: [id number] [facility] Electrophoresis: [id number] [facility] Electrophoresis: [id number] [facility] Electrophoresis: beta-globulin [facility] Electrophoresis: beta-globulin [facility] Electrophoresis: gigi ma globulin [facility] Electrophoresis: gigi ma globulin [facility] Electrophoresis: gigi ma globulin [facility] Erythrocyte mean corpuscular volume determination [facility] Fluid sample globulin level [facility] Fluid sample globulin level [facility] Globulin measurement [facility] Globulin measurement [facility] Glucose [Mass/volume ] in Serum or Plasma [facility] Hematocrit [Volume Fraction] of Blood [facility] Hemoglobin [Mass/vol ume] in Blood [facility] IgA [Mass/volume] in Serum or Plasma [facility] IgA [Mass/volume] in Serum or Plasma [facility] IgG [Mass/volume] in Serum or Plasma [facility] IgG [Mass/volume] in Serum or Plasma [facility] IgM [Mass/volume] in Serum or Plasma [facility] IgM [Mass/volume] in Serum or Plasma [facility] [place]/lambda light c french ratio [facility] [place]/lambda light c french ratio [facility] Lactate dehydrogenas e measurement [facility] Lambda light chains. free [Mass/volume] in Serum or Plasma [facility] Lambda light chains. free [Mass/volume] in Serum or Plasma [facility] Leukocytes [#/volume ] in Blood [facility] Mean corpuscular hem oglobin concentration determination [facility] Mean corpuscular hem oglobin determination [facility] Measurement of renal function [facility] Neutrophil count [facility] Neutrophil percent differential count [facility] Partial thromboplast in time, activated [facility] Patient Education [facility] Work Phone: Patient referral [facility] Work Phone: PET study for locali zation of tumor [facility] Platelets [#/volume] in Blood [facility] Potassium measurement [facility] Protein [Mass/volume ] in Urine [facility] Protein [Mass/volume ] in Urine [facility] Protein electrophore sis panel - Serum or Plasma [facility] Protein electrophore sis panel - Serum or Plasma [facility] Protein measurement, urine, quantitative 24 hour [facility] Protein measurement, urine, quantitative 24 hour [facility] Protein/Creatinine [ Mass Ratio] in Urine [facility] Prothrombin time [facility] Red blood cell count [facility] Red cell distributio n width determination [facility] Serum chloride measurement [facility] Serum protein electrophoresis [facility] Serum protein electrophoresis [facility] Sodium measurement [facility] Total globulins measurement [facility] Total globulins measurement [facility] Total protein measurement [facility] Urea nitrogen [Mass/ volume] in Serum or Plasma [facility] Urine immunofixation [facility] Urine immunofixation [facility] Urine kappa light ch ain measurement [facility] Urine kappa light ch ain measurement [facility] Immunizations Immunization Date Immunization Notes Care Provider Fa cili 07-05-2024 Covid (Spikevax) Dr. Cole Cardona DO Work Phone: [facility] 06-26-2024 tetanus toxoid, redu leonides diphtheria toxoid, and acellular pertussis vaccine, adsorbed ZULEMA JURADO MD [facility] 11-20-2021 SARS-CoV-2 (CV19)mRNA-1273 bivalent vac VANIA MENDOZA MD [facility] 11-20-2021 SARSCoV2 (CV19)mRNA-1273(6y+ bival paulo ROGERIO MATTHEW TECHNICAL TESTING ENGINEER-JOURNEYMAN MACHINIST [facility] 07-03-2021 SARS-CoV-2 (COVID-19 ) mRNA-1273 vaccine ROGERIO VIPUL TECHNICAL TESTING ENGINEER-JOURNEYMAN MACHINIST [facility] 12-15-2020 SARS-CoV-2 (COVID-19 ) mRNA-1273 vaccine ROGERIO VIPUL TECHNICAL TESTING ENGINEER-JOURNEYMAN MACHINIST [facility] Comment on above: Result Comment: 2022: [id number] 05-03-2020 SARS-CoV-2 (COVID-19 ) mRNA-1273 vaccine ROGERIO VIPUL TECHNICAL TESTING ENGINEER-JOURNEYMAN MACHINIST [facility] Comment on above: Result Comment: 2022: [id number] 04-06-2020 SARS-CoV-2 (COVID-19 ) mRNA-1273 vaccine ROGERIO VIPUL TECHNICAL TESTING ENGINEER-JOURNEYMAN MACHINIST [facility] 07-17-2014 pneumococcal conjuga te vaccine, [address] Cole Cardona DO Work Phone: [facility] Payers Date Payer Category Payer Self-pay [id number] 2022 Medicare [id number] 2013 Private Health Insurance [id number] 2013 Unknown [id number] 2009 Medicare [id number] 2009 Medicare [id number] 2009 Medicare [id number] 1944 Unknown [id number] 2.16.8 40.1.584529.3.579.2.627 1944 Unknown [id number] 2.16.8 40.1.605212.3.579.2.627 1944 Unknown [id number] 2.16.8 40.1.379830.3.579.2.627 1944 Unknown [id number] 2.16.8 40.1.610697.3.579.2.627 1944 Unknown [id number] 2.16.8 40.1.423962.3.579.2.627 1944 Unknown [id number] 2.16.8 40.1.970474.3.579.2.627 1944 Unknown [id number] 2.16.8 40.1.878621.3.579.2.627 1944 Unknown [id number] 2.16.8 40.1.997210.3.579.2.627 1944 Unknown [id number] 2.16.8 40.1.406662.3.579.2.627 194 Unknown [id number] 2.16.8 40.1.347101.3.579.2.627 Unknown [id number] 2.16.8 40.1.214304.3.579.2.462 Unknown [id number] 2.16.8 40.1.596964.3.579.2.462 Unknown [id number] 2.16.8 40.1.771887.3.579.2.462 Unknown [id number] 2.16.8 40.1.469752.3.579.2.462 Unknown [id number] 2.16.8 40.1.821479.3.579.2.462 Unknown [id number] 2.16.8 40.1.505444.3.579.2.462 Unknown [id number] 2.16.8 40.1.590623.3.579.2.462 Unknown [id number] 2.16.8 40.1.790193.3.579.2.462 Unknown [id number] 2.16.8 40.1.207809.3.579.2.462 Unknown [id number] 2.16.8 40.1.593327.3.579.2.462 Unknown [id number] 2.16.8 40.1.344502.3.579.2.462 Unknown [id number] 2.16.8 40.1.599532.3.579.2.462 Unknown [id number] 2.16.8 40.1.052196.3.579.2.462 Unknown [id number] 2.16.8 40.1.805616.3.579.2.462 Unknown [id number] 2.16.8 40.1.954376.3.579.2.462 Unknown [id number] 2.16.8 40.1.270537.3.579.2.462 Unknown [id number] 2.16.8 40.1.366404.3.579.2.462 Unknown [id number] 2.16.8 40.1.309776.3.579.2.462 Unknown [id number] 2.16.8 40.1.359188.3.579.2.462 Unknown [id number] 2.16.8 40.1.435681.3.579.2.462 Unknown [id number] 2.16.8 40.1.320319.3.579.2.462 Unknown [id number] 2.16.8 40.1.332966.3.579.2.462 Unknown [id number] 2.16.8 40.1.649283.3.579.2.462 Unknown [id number] 2.16.8 40.1.519179.3.579.2.462 Unknown [id number] 2.16.8 40.1.994542.3.579.2.462 Unknown [id number] 2.16.8 40.1.689059.3.579.2.462 Unknown [id number] 2.16.8 40.1.474392.3.579.2.462 Unknown [id number] 2.16.8 40.1.810491.3.579.2.462 Unknown [id number] 2.16.8 40.1.300257.3.579.2.462 Unknown [id number] 2.16.8 40.1.689968.3.579.2.462 Unknown [id number] 2.16.8 40.1.365823.3.579.2.462 Unknown [id number] 2.16.8 40.1.259375.3.579.2.462 Unknown [id number] 2.16.8 40.1.115228.3.579.2.462 Unknown [id number] 2.16.8 40.1.595128.3.579.2.462 Unknown [id number] 2.16.8 40.1.849916.3.579.2.462 Unknown [id number] 2.16.8 40.1.897788.3.579.2.462 Unknown [id number] 2.16.8 40.1.951585.3.579.2.462 Unknown [id number] 2.16.8 40.1.109993.3.579.2.462 Unknown [id number] 2.16.8 40.1.505664.3.579.2.462 Social History Date Type Detail Facility Start: 05-09-2021 End: 06-10-2023 Tobacco smoking status NHIS Unknown if ever smoked [facility] Start: 1945 Sex Assigned At Female [facility] Start: 06-03-2022 End: 09-08-2024 Tobacco smoking status Never smoked tobacco (finding) [facility] Sex Assigned At [facility] Start: 03-17-2023 End: 05-13-2023 Alcohol intake Not Asked [facility] Start: 03-17-2023 End: 05-13-20[address] History of [address] [facility] Start: 03-17-2023 End: 05-13-[address] [facility] Start: 1945 Sex Assigned At Not on file [facility] Start: 04-03-2005 End: 06-17-2024 Sex Female (finding) [facility] Goals Date Patient Goal Desired Activity /State Functional Status Date Assessment Result Facility 07-20-2024 Functional status Chair [facility] Work Phone: 06-26-2024 Functional Status Minimum assistance [facility] 06-26-2024 Functional Status Room check performed [facility] 06-17-2024 Functional status Chair [facility] Work Phone: 06-02-2024 Functional Status Repositions self [facility] 06-02-2024 Functional Status [facility] 06-02-2024 Functional Status Less than 8 hours [facility] 05-13-2024 Functional Status Sensory Deficits None A [facility] 02-20-2024 Functional Status Independent [facility] 02-20-2024 Functional Status Standard Safet y ID band on, Allergy Band on, Call device within reach, Bed in low position, Wheels locked, Upper/Half-Length side-rails up, Visitor at bedside [facility] 01-03-2024 Functional Status Resting [facility] 01-03-2024 Functional Status Repositions self [facility] 01-03-2024 Functional Status Room check performed [facility] 01-03-2024 Functional Status [facility] 01-03-2024 Functional Status [facility] 01-03-2024 Functional Status [facility] 01-02-2024 Functional Status Nurse Safety C minerva q2hrs Performed 7pm-7am [facility] 01-02-2024 Functional Status [facility] 01-02-2024 Functional Status Mod I [facility] 01-02-2024 Functional Status [facility] 01-02-2024 Functional Status [facility] 01-02-2024 Functional Status Independent [facility] 01-02-2024 Functional Status Activity Sandi tance Independent [facility] 01-01-2024 Functional Status [facility] 01-01-2024 Functional Status [facility] 01-01-2024 Functional Status Multilevel home [facility] 01-01-2024 Functional Status Maintained, confirmed [facility] 12-31-2023 Functional Status Hospital bed [facility] 12-31-2023 Functional Status Awake, Up to bathroom [facility] 12-31-2023 Functional Status [facility] 12-31-2023 Functional Status [facility] 12-31-2023 Functional Status [facility] 06-05-2022 Functional Status Door open, Room check performed [facility] 06-05-2022 Functional Status [facility] 06-05-2022 Functional Status [facility] 06-05-2022 Functional Status Independent [facility] 06-05-2022 Functional Status Demonstrates C orrect Call Light Use Yes [facility] 06-04-2022 Functional Status [facility] 06-04-2022 Functional Status Dinner Percent 0 [facility] 06-04-2022 Functional Status [facility] 06-04-2022 Functional Status 1st floor bedr oom, 1st floor bathroom, 1st floor laundry [facility] 06-04-2022 Functional Status [facility] 06-03-2022 Functional Status N/A [facility] Mental Status Date Assessment Result Facility 09-08-2024 Cognitive function Awake;Alert;[facility] Work Phone: 07-20-2024 Cognitive function Voice/Name [facility] Work Phone: 07-19-2024 Cognitive function Appropriate;[facility] Work Phone: 06-26-2024 Mental Status Orientation Oriented x 4 [facility] 06-26-2024 Mental Status [facility] 06-17-2024 Cognitive function Voice/Name [facility] Work Phone: 06-17-2024 Cognitive function Appropriate;[facility] Work Phone: 06-13-2024 Cognitive function Level Of Cons ciousness Awake;Alert;Appropriate;[employer] [facility] Work Phone: 06-02-2024 Mental Status Oriented x 4 [facility] 06-02-2024 Mental Status [facility] 02-20-2024 Mental Status Orientation Oriented x 4 [facility] 02-20-2024 Mental Status [facility] 01-03-2024 Mental Status Orientation Oriented x 4 [facility] 01-02-2024 Mental Status [facility] 01-02-2024 Mental Status [facility] 01-01-2024 Mental Status [facility] 12-31-2023 Mental Status Orientation Oriented x 4 [facility] 06-05-2022 Mental Status Oriented x 4, Forgetful [facility] 06-05-2022 Mental Status [facility] 06-05-2022 Mental Status [facility] Clinical Notes 06-03-2022 to 09-29-2024 Note Date & Type Note Facility 09-29-2024 Progress note Note Date/Time September 29, 2024 1:5 3pm [facility] [address] [place], [place] [id number] OFFICE VISIT Date of Service: 09/29/24 1328 MR#: [id number] Acct: [id number] Name: SCOTT TALBERT Rep #: [id number] : 1945 From: Lew marshall DO Age/Sex: 78/F Location: [facility] Status: Signed Intake Vital Signs 09/22/24 14:42 09/29/24 13:30 Height 5 ft 2 in 5 ft 2 in BP 110/74 Blood Pressure Location Lt brachial Position Sitting Respiration 16 Pulse 110 H Pulse Source Monitor Temp 98.6 F Temperature Source Temporal Artery Oxygen Delivery Method room air Intake Visit Reasons: OTV Is patient in pain?: Yes (shoulder) Pain scale (1-10): 3 Allergies prednisone Allergy (Unknown, Verified 09/22/24 14:43) Rash diphenhydramine (From Benadryl) Allergy (Verified 09/22/24 14:43) Rash Influenza Virus Vaccines (flu vaccine) Adverse Reaction (Intermediate, Verified 09/22/24 14:43) Other Medications ?Medication ?Instructions ?Recorded ?Confirmed ?Type blood pressure monitor #1 ea 06/02/23 09/29/24 Rx handicap placard #1 ea 05/26/24 09/29/24 Rx amlodipine 5 mg tablet 5 mg PO DAILY 30 days #30 ta bs 07/20/24 09/29/24 Rx atorvastatin 40 mg tablet 40 mg PO QHS 30 days #30 tab s 07/20/24 09/29/24 Rx chlordiazepoxide HCl 5 mg capsule 10 mg (2 x 5 mg) PO Q12H PRN 07/20/24 09/29/24 Rx anxiety 30 days #120 caps meclizine 25 mg tablet 25 mg PO QAM 30 days #30 tab s 07/20/24 09/29/24 Rx (Travel-Ease (meclizine)) potassium chloride 20 mEq 20 meq PO DAILYCM 30 days #3 0 tabs 07/20/24 09/29/24 Rx tablet,extended release(part/cryst) venlafaxine 37.5 mg 37.5 mg PO DAILY 30 days #30 caps 07/20/24 09/29/24 Rx capsule,extended release 24 hr apixaban 2.5 mg tablet 2.5 mg PO BID 30 days #60 ta bs 07/27/24 09/29/24 Rx nystatin 100,000 unit/gram topical 1 applic topical QD AY #30 grams 07/28/24 09/29/24 Rx cream acetaminophen 325 mg tablet 650 mg PO Q4H PRN pain 09/29/24 History ferrous sulfate 325 mg (65 mg 325 mg PO BID 08/16/24 0 09/29/24 History iron) tablet (FeroSul) loperamide 2 mg capsule 2 mg PO PRN loose stool 07/2609/29/24 History magnesium hydroxide 400 mg/5 mL 30 ml PO QDAY PRN cons tipation 08/16/24 09/29/24 History oral suspension (Milk of Magnesia) Have you fallen in the past year?: No PFSH PFSH Medical History DVT (deep venous thrombosis) Pneumonia Osteoarthritis High triglycerides High cholesterol Arthritis Home Medications ?Medication ?Instructions ?Recorded ?Last Taken ?Type blood pressure monitor #1 ea 06/02/23 Unknown Rx handicap placard #1 ea 05/26/24 Unknown Rx amlodipine 5 mg tablet 5 mg PO DAILY 30 days #30 ta bs 07/20/24 Unknown Rx atorvastatin 40 mg tablet 40 mg PO QHS 30 days #30 tab s 07/20/24 Unknown Rx chlordiazepoxide HCl 5 mg capsule 10 mg (2 x 5 mg) PO Q12H PRN 07/20/24 Unknown Rx anxiety 30 days #120 caps meclizine 25 mg tablet 25 mg PO QAM 30 days #30 tab s 07/20/24 Unknown Rx (Travel-Ease (meclizine)) potassium chloride 20 mEq 20 meq PO DAILYCM 30 days #3 0 tabs 07/20/24 Unknown Rx tablet,extended release(part/cryst) venlafaxine 37.5 mg 37.5 mg PO DAILY 30 days #30 caps 07/20/24 Unknown Rx capsule,extended release 24 hr apixaban 2.5 mg tablet 2.5 mg PO BID 30 days #60 ta bs 07/27/24 Unknown Rx nystatin 100,000 unit/gram topical 1 applic topical QD AY #30 grams 07/28/24 Unknown Rx cream acetaminophen 325 mg tablet 650 mg PO Q4H PRN pain Unknown History ferrous sulfate 325 mg (65 mg 325 mg PO BID 08/16/24 U nknown History iron) tablet (FeroSul) loperamide 2 mg capsule 2 mg PO PRN loose stool 07/26 05/18 Unknown History magnesium hydroxide 400 mg/5 mL 30 ml PO QDAY PRN cons tipation 08/16/24 Unknown History oral suspension (Milk of Magnesia) Allergy/AdvReac Type Severity Reaction Status Date / Time prednisone Allergy Unknown Rash Verified 09/22/24 14:43 diphenhydramine (From Allergy Rash Verified 09/22/24 14:43 Benadryl) Influenza Virus Vaccines AdvReac Intermediate Other Verified 09/22/24 14:43 (flu vaccine) Family History Mother Arthritis Brother Myocardial infarction Father Heart disease Surgical History History of bilateral knee replacement History of umbilical hernia repair History of tonsillectomy Social History household members: none Smoking Status: Never smoker alcohol intake: never substance use type: does not use what type of physical activity do you participate in: swimming Diagnosis: Scott Talbert is a 78-year-old female with likely disseminated malignancy of unknown origin with areas of abnormality within her left lung, mediastinal lymphnodes, several bone lesions consistent with metastasis status post bronchial washing and biopsy (06/02/2024), CT abdomen/pelvis with contrast (06/11/2024) and CTA chest (06/12/2024). Plan: Plan was made to complete palliative radiation therapy to the right shoulder consisting of 3500 cGy delivered in 10 fractions Treatment Data: Treatment Site: Right shoulder Current total dose/Total dose planned: 2100 cGy / 3500 cGy Fraction number: Chemotherapy: none Subjective: Pain: Fatigue: moderate no shoulder mobility Objective: Weight: N/A Physical Exam: Gen: NAD Assessment & Plan Assessment/Plan (1) 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: PLAN: Plan Assessment: Tolerating treatment well overall.? I reviewed and approved all treatment associated imaging. Very large right shoulder tumor, pain moderate. and missed over a week, tumor worsened and re plan Plan: Continue treatment as planned.? I have reviewed potential treatment associated toxicities as well as timing for resolution and management. Follow up next week or sooner if needed. Thank you for allowing me to participate in the management and care of your patient. If I may answer any questions in the interim, please do not hesitate tocontact me at any time. Lew Roblero DO, MS Capacity Planning Engineer, Department of Radiation Oncology [facility] Coding Level of Care Code Radiation Tx Management x5 Diagnoses 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 C79.51; C80.1 09/29/24 1353 <Electronically signed by Lew Roblero DO> Date _ Lew Roblero DO Cosigner Signature: Date (if applicable) CC: ~ [facility] Work Phone: 1(565) 242-517807-30-2025 Progress note Author Brice David [facility] Note Date/Time September 22, 2024 3:10 pm [facility] [address] [address] OFFICE VISIT Date of Service: 09/22/24 1438 MR#: [id number] Acct: [id number] Name: SCOTT TALBERT Rep #: [id number] : 1945 From: Brice David MD Age/Sex: 78/F Location: [facility] Status: Signed HPI Subjective Date of Service 09/22/24 Chief Complaint F/u for Disseminated cancer and biopsy report. History of Present Illness 78y.o.woman presented with chronic cough. CT on 01/01/20 at [place] showed left lower lobe atelectasis with a central mass and left hilar adenopathy. She had FOB plus EBUS on 06/02/2024 at [facility] for collapse of the left lowerlobe, she had complete occlusion of the left main bronchus, bronchial washing and biopsies was done. Cytology for bronchial washing showed cells suspicious for carcinoma. Bronchial biopsy was negative and the repeat was suggested. CTA of the chest on 06/12/2024 showed consolidation of left lower lobe with airway obstruction and mass, mildly enlarged subcarinal lymph node. Lytic lesion in the acromion. Shoulder x-ray on 07/11/2024 showed destructive lesion involving the right acromion. She was referred for further evaluation and management. She had R shoulder biopsy and comes for follow up. She is getting Radiation to the R shoulder metastasis.. [facility] Medical History DVT (deep venous thrombosis) Pneumonia Osteoarthritis High triglycerides High cholesterol Arthritis Surgical History History of bilateral knee replacement History of umbilical hernia repair History of tonsillectomy Family History Mother Arthritis Brother Myocardial infarction Father Heart disease Social History household members: none Smoking Status: Never smoker alcohol intake: never substance use type: does not use what type of physical activity do you participate in: swimming Intake Vital Signs 08/16/24 10:19 09/22/24 14:38 09/22/24 14:42 Height 5 ft 2 in 5 ft 2 in 5 ft 2 in BP 108/69 Blood Pressure Location Lt brachial Position Sitting Respiration 16 Pulse 96 Pulse Source Monitor Temp 98.0 F Temperature Source Temporal Artery Pulse Oximetry (%) 93 Oxygen Delivery Method room air Intake Accompanied by: Self Is patient in pain?: No Allergies prednisone Allergy (Unknown, Verified 09/22/24 14:43) Rash diphenhydramine (From Benadryl) Allergy (Verified 09/22/24 14:43) Rash Influenza Virus Vaccines (flu vaccine) Adverse Reaction (Intermediate, Verified 09/22/24 14:43) Other Medications ?Medication ?Instructions ?Recorded ?Confirmed ?Type blood pressure monitor #1 ea 06/02/23 09/22/24 Rx handicap placard #1 ea 05/26/24 09/22/24 Rx amlodipine 5 mg tablet 5 mg PO DAILY 30 days #30 ta bs 07/20/24 09/22/24 Rx atorvastatin 40 mg tablet 40 mg PO QHS 30 days #30 tab s 07/20/24 09/22/24 Rx chlordiazepoxide HCl 5 mg capsule 10 mg (2 x 5 mg) PO Q12H PRN 07/20/24 09/22/24 Rx anxiety 30 days #120 caps meclizine 25 mg tablet 25 mg PO QAM 30 days #30 tab s 07/20/24 09/22/24 Rx (Travel-Ease (meclizine)) potassium chloride 20 mEq 20 meq PO DAILYCM 30 days #3 0 tabs 07/20/24 09/22/24 Rx tablet,extended release(part/cryst) venlafaxine 37.5 mg 37.5 mg PO DAILY 30 days #30 caps 07/20/24 09/22/24 Rx capsule,extended release 24 hr apixaban 2.5 mg tablet 2.5 mg PO BID 30 days #60 ta bs 07/27/24 09/22/24 Rx nystatin 100,000 unit/gram topical 1 applic topical QD AY #30 grams 07/28/24 09/22/24 Rx cream acetaminophen 325 mg tablet 650 mg PO Q4H PRN pain 09/22/24 History ferrous sulfate 325 mg (65 mg 325 mg PO BID 08/16/24 0 09/22/24 History iron) tablet (FeroSul) loperamide 2 mg capsule 2 mg PO PRN loose stool 07/2609/22/24 History magnesium hydroxide 400 mg/5 mL 30 ml PO QDAY PRN cons tipation 08/16/24 09/22/24 History oral suspension (Milk of Magnesia) oxycodone 5 mg tablet 5 mg PO Q6H PRN pain 2 weeks #60 09/14/24 09/22/24 Rx tabs Have you fallen in the past year?: Yes Central Venous Access Central Venous Access: No 09/08/2024 CT guided biopsy of R shoulder bony lesion reviewed. MICROSCOPIC DIAGNOSIS A. Shoulder, right, posterior, mass, CT-guided core biopsy: - Metastatic adenocarcinoma, consistent with a GI primary. - Positive for panKeratin, CK20, CDX2. - Negative for CK7, TTF-1, Napsin A Exam Physical Exam Const alert, oriented x3 and no apparent distress HEENT normocephalic, external ears normal and external nose normal Eyes PERRL, EOMs intact bilaterally and conjunctivae normal Neck supple Lymph Lymphatic: no lymphadenopathy noted Chest Chest Narrative: + R Shoulder swelling. Resp normal respiratory effort and clear to auscultation bilaterally Cardio regular rate, regular rhythm, S1 normal heart sound and S2 normal heart sound GI soft to palpation and non-tender no CVA tenderness Back/Spine thoracic and lumbar spine normal to inspection Extremity no clubbing, cyanosis or edema Skin no rashes or lesions noted Neuro oriented x3, CN's II-XII intact bilaterally and moves all extremities Psych mental status grossly normal Coding Level of Care Code Off vis,est,level 4 Exam Problem Focused Diagnoses Disseminated cancer C80.0 Assessment and Plan Assessment and Plan (1) Disseminated cancer: Status: Acute Comment: involving L lung, R scapular with pathologic fracture Pathology of R shoulder bone biopsy showed Metastatic adenocarcinoma. Discussed management again, Pt does not want further treatment to prolong her life. Plan: To continue Palliative RT to R shoulder. To do Palliative care now and Hospice care when appropriate. Clinical Quality Measures Falls Risk Screening/Assistive Devices Have you fallen in the past year?: Yes 09/22/24 1511 <Electronically signed by Brice Ann> Date _ Brice David MD Cosigner Signature: Date (if applicable) CC: Dr. Cole Cardona, ~ [facility] [employer] Work Phone: [phone] 356-224106-05-2025 Note. MICRO - Microbiology PROCEDURE: Acid Fast Bacilli Culture w Stain if Ind [*1] SOURCE: Bronchial Washing BODY SITE: Bronchial COLLECTED DATE/TIME: 06/02/2024 12:15 EDT RECEIVED DATE/TIME: 06/02/2024 15:41 EDT START DATE/TIME: 06/02/2024 15:41 EDT FREE TEXT SOURCE: Left FINAL REPORTS Final Report [] Verified Date/Time/Personnel: 07/29/2024 08:29 EDT No growth of Acid Fast Bacilli PRELIMINARY REPORTS Preliminary Report [] Verified Date/Time/Personnel: 07/15/2024 10:58 EDT No growth of Acid Fast Bacilli to date. Final report to follow at 8 weeks. STAINS AFS [] Verified Date/Time/Personnel: 06/03/2024 12:18 EDT Acid Fast Smear from Concentrated Specimen: Negative Performing Locations *1: This test was performed at: [facility], [address] [place] [address], [phone] , [facility]06-04-[facility] [address] [place] [address] OFFICE VISIT Date of Service: 07/28/24 MR#: [id number] Acct: [id number] Name: SCOTT TALBERT Rep #: [id number] : 1945 Provider: Dr. Jorge Cardona, DO Age/Sex: 78/F Location: [facility] [place].[facility] Status: Signed Intake Vital Signs 07/14/24 13:31 07/28/24 14:33 Height 5 ft 2 in 5 ft 2 in Weight: 173 lb 8 oz BMI 31.7 BP 106/78 Blood Pressure Location Lt brachial Position Sitting Respiration 16 Pulse 89 Pulse Source Monitor Temp 97.6 F L Temp Source Temporal Pulse Oximetry (%) 91 Oxygen Delivery Method room air Intake Visit Reasons: [facility] Chief Complaint: frequent falls Trial Consultant Required: No Accompanied by: Self Is patient in pain?: No Allergies prednisone Allergy (Unknown, Verified 07/28/24 14:32) Rash diphenhydramine (From Benadryl) Allergy (Verified 07/28/24 14:32) Rash Influenza Virus Vaccines (flu vaccine) Adverse Reaction (Intermediate, Verified 07/28/24 14:32) Other Medications ?Medication ?Instructions ?Recorded ?Confirmed ?Type blood pressure monitor #1 ea 06/02/23 07/28/24 Rx handicap placard #1 ea 05/26/24 07/28/24 Rx acetaminophen 500 mg tablet 1,000 mg (2 x 500 mg) PO Q 6H PRN 07/20/24 07/28/24 Rx PRN Pain 1-3 Or Fever #0 tabs amlodipine 5 mg tablet 5 mg PO DAILY 30 days #30 ta bs 07/20/24 07/28/24 Rx atorvastatin 40 mg tablet 40 mg PO QHS 30 days #30 tab s 07/20/24 07/28/24 Rx chlordiazepoxide HCl 5 mg capsule 10 mg (2 x 5 mg) PO Q12H PRN 07/20/24 07/28/24 Rx anxiety 30 days #120 caps ferrous sulfate 325 mg (65 mg 650 mg (2 x 325 mg (65 m g iron)) 07/20/24 07/28/24 Rx iron) tablet (FeroSul) PO DAILYCM 30 days #60 tabs meclizine 25 mg tablet 25 mg PO QAM 30 days #30 tab s 07/20/24 07/28/24 Rx (Travel-Ease (meclizine)) potassium chloride 20 mEq 20 meq PO DAILYCM 30 days #3 0 tabs 07/20/24 07/28/24 Rx tablet,extended release(part/cryst) venlafaxine 37.5 mg 37.5 mg PO DAILY 30 days #30 caps 07/20/24 07/28/24 Rx capsule,extended release 24 hr apixaban 2.5 mg tablet 2.5 mg PO BID 30 days #60 ta bs 07/27/24 07/28/24 Rx nystatin 100,000 unit/gram topical 1 applic topical QD AY #30 grams 07/28/24 07/28/24 Rx cream Have you [facility] in the past year?: [facility] History DVT (deep venous thrombosis) Pneumonia Osteoarthritis High triglycerides High cholesterol Arthritis Surgical History History of bilateral knee replacement History of umbilical hernia repair History of tonsillectomy Family History Mother Arthritis Brother Myocardial infarction Father Heart disease Social History household members: none Smoking Status: Never smoker alcohol intake: never substance use type: does not use what type of physical activity do you participate in: swimming HPI HPI Chief Complaint: frequent falls Details: SCOTT TALBERT, is a 78 F who presents to the office today for a discussion on what to do with herright shoulder. 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 She did have bronchial washings which showed adenocarcinoma of the lung but the primary site in the lung was not determined.In the past she has not wanted anything done but now because the shoulder is painful and she haslimited use she is considering radiation treatment and follow-up treatment for her cancer. She is living in an extended care facility and would have somebody to help her care should she have problems with radiation and/or chemotherapy. ROS Const Constitutional: No body ache, excessive sweating, fatigue, fever(s), frequent falls, headache(s), snoring, weakness, weight change, sleep problems or change in appetite Eyes Eyes: No blurry vision, change in vision, eye pain or Light sensitivity ENT ENT: No abnormal hearing, ear or mastoid pain, tinnitus, nasal congestion, headache(s), neck pain or sore throat Resp Respiratory: No cough, shortness of breath, snoring or wheezing Cardio Cardiology: No chest pain at rest, chest pain with exertion, excessive sweating,shortness of breath, dyspnea on exertion, lightheadedness, orthopnea or palpitations Gastro GI: No abdominal pain, change in bowel habits, constipation, cramping, diarrhea,nausea/dyspepsia orvomiting Genitourinary-Female: No burning urination, painful urination, urinary incontinence, urinary frequency, blood in urine, abnormal periods or pelvic pain Musc Musculoskeletal: No abnormal gait, joint pain, back pain, limited range of motion, neck pain, numbness, stiffness, tingling or Arthritis Skin Skin: No dry skin, redness, lesions, itchy eyes, rash or wounds Neuro Neurology: No abnormal gait, abnormal hearing, abnormal speech, dizziness, weakness, frequent falls, headache(s), memory loss, numbness or tingling Psych Psychiatric: No anxiety, No change in appetite, No depression, No memory loss and No Thoughts of harming yourself/Others Endo Endocrine: No cold intolerance, excessive sweating, fatigue, flushing, heat intolerance, increased thirst/drinking, increased hunger or weight change Aller/Imm Allergy/Immunologic: No itchy eyes, seasonal allergy symptoms, hives or wheezing Matheus/Lymp Hematologic/Lymphatic: No easy bleeding, easy bruising or enlarged lymph nodes Exam Const General: cooperative, in distress mild and anxious Nutritional Appearance: overweight Orientation: oriented x3 HENMT Head: normal to inspection Neck Neck: full ROM Resp Effort & Inspection: normal respiratory effort Auscultation: Bilateral: Clear to Auscultation Cardio Rate: regular rate Rhythm: regular rhythm Musc Musculoskeletal: Yes joint tenderness (Right shoulder.); No decreased range of motion Other: Significant swelling of the right shoulder. 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 In the absence of her primary I am not certain what oncology would do. With adenocarcinoma cells seen in bronchial washings I am sure this is pulmonary but primary is yet to be identified and it is possible that they may want a bone biopsy of the metastatic lesions. This is a difficult patient to work with and not because she is not a very pleasant lady but because part of her does not want to do anything and just let cancer take its toll. And the other part of her wants to stay around for as long as she can to see her grandson get . Orders: Referrals Hematology & Oncology C79.51 - Secondary malignant neoplasm of bone, C80.1 - Malignant (primary) neoplasm, unspecified Medications: New nystatin 1 applic topical QDAY 30 grams 1RF Clinical Quality Measures Falls Risk Screening/Assistive Devices Have you fallen in the past year?: Yes 07/28/24 1509 wn DO> Date _ Cole Cardona DO Cosigner Signature: Date (if applicable) CC: ~ [facility]06-04-2025 Progress note Author Cole Cardona [facility] Note Date/Time July 28, 2024 3:09p m [facility] [address] [place] [address] OFFICE VISIT Date of Service: 07/28/24 MR#: [id number] Acct: [id number] Name: SCOTT TALBERT Rep #: [id number] : 1945 Provider: Dr. Jorge Cardona, Age/Sex: 78/F Location: [facility] [place] Status: Signed Intake Vital Signs 07/14/24 13:31 07/28/24 14:33 Height 5 ft 2 in 5 ft 2 in Weight: 173 lb 8 oz BMI 31.7 BP 106/78 Blood Pressure Location Lt brachial Position Sitting Respiration 16 Pulse 89 Pulse Source Monitor Temp 97.6 F L Temp Source Temporal Pulse Oximetry (%) 91 Oxygen Delivery Method room air Intake Visit Reasons: [facility] Chief Complaint: frequent falls Trial Consultant Required: No Accompanied by: Self Is patient in pain?: No Allergies prednisone Allergy (Unknown, Verified 07/28/24 14:32) Rash diphenhydramine (From Benadryl) Allergy (Verified 07/28/24 14:32) Rash Influenza Virus Vaccines (flu vaccine) Adverse Reaction (Intermediate, Verified 07/28/24 14:32) Other Medications ?Medication ?Instructions ?Recorded ?Confirmed ?Type blood pressure monitor #1 ea 06/02/23 07/28/24 Rx handicap placard #1 ea 05/26/24 07/28/24 Rx acetaminophen 500 mg tablet 1,000 mg (2 x 500 mg) PO Q 6H PRN 07/20/24 07/28/24 Rx PRN Pain 1-3 Or Fever #0 tabs amlodipine 5 mg tablet 5 mg PO DAILY 30 days #30 ta bs 07/20/24 07/28/24 Rx atorvastatin 40 mg tablet 40 mg PO QHS 30 days #30 tab s 07/20/24 07/28/24 Rx chlordiazepoxide HCl 5 mg capsule 10 mg (2 x 5 mg) PO Q12H PRN 07/20/24 07/28/24 Rx anxiety 30 days #120 caps ferrous sulfate 325 mg (65 mg 650 mg (2 x 325 mg (65 m g iron)) 07/20/24 07/28/24 Rx iron) tablet (FeroSul) PO DAILYCM 30 days #60 tabs meclizine 25 mg tablet 25 mg PO QAM 30 days #30 tab s 07/20/24 07/28/24 Rx (Travel-Ease (meclizine)) potassium chloride 20 mEq 20 meq PO DAILYCM 30 days #3 0 tabs 07/20/24 07/28/24 Rx tablet,extended release(part/cryst) venlafaxine 37.5 mg 37.5 mg PO DAILY 30 days #30 caps 07/20/24 07/28/24 Rx capsule,extended release 24 hr apixaban 2.5 mg tablet 2.5 mg PO BID 30 days #60 ta bs 07/27/24 07/28/24 Rx nystatin 100,000 unit/gram topical 1 applic topical QD AY #30 grams 07/28/24 07/28/24 Rx cream Have you fallen in the past year?: Yes [facility] Medical History DVT (deep venous thrombosis) Pneumonia Osteoarthritis High triglycerides High cholesterol Arthritis Surgical History History of bilateral knee replacement History of umbilical hernia repair History of tonsillectomy Family History Mother Arthritis Brother Myocardial infarction Father Heart disease Social History household members: none Smoking Status: Never smoker alcohol intake: never substance use type: does not use what type of physical activity do you participate in: swimming HPI HPI Chief Complaint: frequent falls Details: SCOTT TALBERT, is a 78 F who presents to the office today for a discussion on what to do with her right shoulder. 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 She did have bronchial washings which showed adenocarcinoma of the lung but the primary site in the lung was not determined. In the past she has not wanted anything done but now because the shoulder is painful and she haslimited use she is considering radiation treatment and follow-up treatment for her cancer. She is living in an extended care facility and would have somebody to help her care should she have problems with radiation and/or chemotherapy. ROS Const Constitutional: No body ache, excessive sweating, fatigue, fever(s), frequent falls, headache(s), snoring, weakness, weight change, sleep problems or change in appetite Eyes Eyes: No blurry vision, change in vision, eye pain or Light sensitivity ENT ENT: No abnormal hearing, ear or mastoid pain, tinnitus, nasal congestion, headache(s), neck pain or sore throat Resp Respiratory: No cough, shortness of breath, snoring or wheezing Cardio Cardiology: No chest pain at rest, chest pain with exertion, excessive sweating,shortness of breath, dyspnea on exertion, lightheadedness, orthopnea or palpitations Gastro GI: No abdominal pain, change in bowel habits, constipation, cramping, diarrhea,nausea/dyspepsia or vomiting Genitourinary-Female: No burning urination, painful urination, urinary incontinence, urinary frequency, blood in urine, abnormal periods or pelvic pain Musc Musculoskeletal: No abnormal gait, joint pain, back pain, limited range of motion, neck pain, numbness, stiffness, tingling or Arthritis Skin Skin: No dry skin, redness, lesions, itchy eyes, rash or wounds Neuro Neurology: No abnormal gait, abnormal hearing, abnormal speech, dizziness, weakness, frequent falls, headache(s), memory loss, numbness or tingling Psych Psychiatric: No anxiety, No change in appetite, No depression, No memory loss and No Thoughts of harming yourself/Others Endo Endocrine: No cold intolerance, excessive sweating, fatigue, flushing, heat intolerance, increased thirst/drinking, increased hunger or weight change Aller/Imm Allergy/Immunologic: No itchy eyes, seasonal allergy symptoms, hives or wheezing Matheus/Lymp Hematologic/Lymphatic: No easy bleeding, easy bruising or enlarged lymph nodes Exam Const General: cooperative, in distress mild and anxious Nutritional Appearance: overweight Orientation: oriented x3 HENMT Head: normal to inspection Neck Neck: full ROM Resp Effort & Inspection: normal respiratory effort Auscultation: Bilateral: Clear to Auscultation Cardio Rate: regular rate Rhythm: regular rhythm Musc Musculoskeletal: Yes joint tenderness (Right shoulder.); No decreased range of motion Other: Significant swelling of the right shoulder. 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 In the absence of her primary I am not certain what oncology would do. With adenocarcinoma cells seen in bronchial washings I am sure this is pulmonary but primary is yet to be identified and it is possible that they may want a bone biopsy of the metastatic lesions. This is a difficult patient to work with and not because she is not a very pleasant lady but because part of her does not want to do anything and just let cancer take its toll. And the other part of her wants to stay around for as long as she can to see her grandson get . Orders: Referrals Hematology & Oncology C79.51 - Secondary malignant neoplasm of bone, C80.1 - Malignant (primary) neoplasm, unspecified Medications: New nystatin 1 applic topical QDAY 30 grams 1RF Clinical Quality Measures Falls Risk Screening/Assistive Devices Have you fallen in the past year?: Yes 07/28/24 4940 <Electronically signed by Cole day DO> Date _ Cole Cardona DO Cosigner Signature: Date (if applicable) CC: ~ [facility] Work Phone: [phone] Discharge summary Author Silvestre Garcia [facility] Note Date/Time July 20, 2024 8:17a [facility] Medical Records Department [facility] [place] [address] Discharge Summary 07/20/24 0810 MR#: [id number] Acct: [id number] Name: SCOTT TALBERT Rep #:[id number] : 1945 78 From: Silvestre Garcia MD PCP: Dr. Cole Cardona DO Status:AD M IN Location: [place] [address] Providers Date of Admission: 06/30/24 Primary Care Physician: Dr. Cole Cardona DO Reason For Visit: [place] Diagnosis Discharge Diagnosis (1) Debility: Status: Acute Code(s): R53.81 - Other malaise (2) 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: Status: Acute Code(s): C79.51 - Secondary malignant neoplasm of bone; C80.1 - Malignant (primary) neoplasm, unspecified (3) Essential (primary) hypertension: Status: Acute Code(s): I10 - Essential (primary) hypertension (4) DVT (deep venous thrombosis): Status: Acute Code(s): I82.409 - Acute embolism and thrombosis of unspecified deep veins of unspecifiedlower extremity (5) Hyperlipidemia, unspecified: Status: Acute Code(s): E78.5 - Hyperlipidemia, unspecified (6) Anxiety: Status: Acute Code(s): F41.9 - Anxiety disorder, unspecified (7) Rash: Status: Acute Code(s): R21 - Rash and other nonspecific skin eruption (8) Iron deficiency anemia: Status: Acute Code(s): D50.9 - Iron deficiency anemia, unspecified (9) BPPV (benign paroxysmal positional vertigo): Status: Acute Code(s): H81.10 - Benign paroxysmal vertigo, unspecified ear (10) Major depression: Status: Acute Code(s): F32.9 - Major depressive disorder, single episode, unspecified Plan 78 year old female with below past medical history recently hospitalized for weakness, postobstructive pneumonia, metastatic cancer unknown primary, failed discharge home, admitted to TCU with debility, here for rehabilitation, strengthening, prior to discharge to [facility]. * Debility - PT/OT. * Pain - Tylenol 1000mg po q6 prn pain (1-10). * Bowel - senna/colace 1 tablet bid, Magnesium citrate 300mL daily prn. * Adult immunization - Adminsiter pneumonia vaccine, covid vaccine, flu vaccine as appropriate. * DVT prophylaxis - Eliquis. * Metastatic cancer unknown primary - PET scan, refer to Oncology for help with diagnosis, resident unlikely to agree to treatment, but may want to know her diagnosis/prognosis. * Hypertension - Amlodipine 5mg daily. * DVT - Eliquis 2.5mg bid. * Hyperlipidemia - Atorvastatin 40mg qhs. * Rash - Clobetasol cream topical daily prn. * Iron deficiency anemia - Ferrous sulfate 650mg daily. * BPPV - Meclizine 25mg bid prn. * Tinea Corporis - Nystatin powder topical bid. The following psychotropic medication was present on admission: Librium 10mg q12prn. Psychotropic medication therapy is indicated for a diagnosis of: Anxiety. Based on my clinical evaluation, continuation of the medication is necessary at this time. Gradual dose reduction plan (select one): ____ GDR will be attempted. Will monitor patient symptoms and behaviors in response to GDR. __x__ GRD contraindicated. 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 The following psychotropic medication was present on admission: Venlafaxine 37.5mg daily. Psychotropic medication therapy is indicated for a diagnosis of: Major Depression. Based on my clinical evaluation, continuation of the medication is necessary at this time. Gradual dose reduction plan (select one): ____ GDR will be attempted. Will monitor patient symptoms and behaviors in response to GDR. __x__ GRD contraindicated. 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 Medications at Discharge Home Medications blood pressure monitor #1 ea 06/02/23 handicap placard #1 ea 05/26/24 acetaminophen 500 mg tablet 1,000 mg (2 x 500 mg) PO Q6H PRN PRN Pain 1-3 Or Fever #0 tabs 07/20/24 amlodipine 5 mg tablet 5 mg PO DAILY 30 days #30 tabs 07/20/24 apixaban 5 mg tablet (Eliquis) 5 mg PO BID 30 days #60 tabs 07/20/24 atorvastatin 40 mg tablet 40 mg PO QHS 30 days #30 tabs 07/20/24 chlordiazepoxide HCl 5 mg capsule 10 mg (2 x 5 mg) PO Q12H PRN anxiety 30 days #120 caps 07/20/24 ferrous sulfate 325 mg (65 mg iron) tablet (FeroSul) 650 mg (2 x 325 mg (65 mg iron)) PO DAILYCM 30 days #60 tabs 07/20/24 meclizine 25 mg tablet (Travel-Ease (meclizine)) 25 mg PO QAM 30 days #30 tabs 07/20/24 potassium chloride 20 mEq tablet,extended release(part/cryst) 20 meq PO DAILYCM 30 days #30 tabs 07/20/24 venlafaxine 37.5 mg capsule,extended release 24 hr 37.5 mg PO DAILY 30 days #30 caps 07/20/24 Hospital Course Operations None Procedures None Summary of Care Provided Minutes Spent on Discharge: 35 Hospital Course: 78 year old female with below past medical history recently hospitalized for weakness, postobstructive pneumonia, metastatic cancer unknown primary, failed discharge home, admitted to TCU with debility, here for rehabilitation, strengthening, prior to discharge to [facility]. Resident declined evaluation for metastatic cancer unknown primary. Discharge home 07/20/2024, then plan to move into [facility] 07/21/2024; [facility] PT/OT. Physical Exam Const alert General Appearance: cooperative HEENT normocephalic Eyes PERRL and EOMs intact bilaterally Neck supple, no JVD and no carotid bruits Resp normal respiratory effort, normal air movement and clear to auscultation bilaterally Cardio regular rate and regular rhythm GI normal to inspection, nondistended, normoactive bowel sounds, non-tender and non-distended Extremity normal capillary refill General Extremity: Negative for edema Skin no rashes or lesions noted General Skin Exam: no breakdown Psych affect normal Appearance: appropriate Weight / BMI Weight Weight: 77.746 kg Body Mass Index (BMI) 31.3 ABG / Lab / Microbiology Data 07/15/24 05:33 07/15/24 05:33 D/C Instructions Discharge Diet: No restrictions Discharge Activity: Return to Normal Activity, May Shower and Use Walker Weight Bearing Status: Weight bearing as tolerated Call your doctor if you observe: Fever of 101 or Higher, Inability to urinate, Inability to have a bowel movement, Shortness of breath, Dizziness, Fainting spells, Swelling in the ankles, Chest pain and Uncontrolled pain DC O2, CPAP, BIPAP Needs Home O2 Discharge instructions: No Additional Instructions: Discharge home 07/20/2024, then plan to move into [facility] 07/21/2024; [facility] PT/OT. Meaningful Use Info Meaningful Use Meaningful Use Diagnoses (Choose all that apply): None applicable Ischemic Stroke Statin Dosing Therapy Reference: STATIN DOSE THERAPY REFERENCE: * Patients > 75 years receive moderate or high dose statin therapy. * Patients 75 years or YOUNGER should receive HIGH intensity statin dose unless contraindicated. You will be required to document reason for non-treatment if statin daily dose does not meet guidelines. HIGH DOSE STATIN THERAPY DAILY Atorvastatin > than or = to 40 mg Rosuvastatin > than or = to 20 mg Amlodipine + Atorvastatin > than or = to 2.5/40 mg Ezetimibe + Simvastatin 10/80 mg Simvastatin 80mg Discharge Plan Admission Admit Date/Time: 06/30/24 18:41 Primary Reason for Your Visit: Debility. Attending Provider: Silvestre Garcia Chi Primary Care Provider: Cole Cardona Instructions Additional Instructions / Restrictions: Discharge home 07/20/2024, then plan to move into [facility] 07/21/2024; [facility] PT/OT. Discharge Orders/Prescriptions Prescriptions: New atorvastatin 40 mg Tablet 40 mg PO QHS 30 Days Qty: 30 0RF amlodipine 5 mg Tablet 5 mg PO DAILY 30 Days Qty: 30 0RF acetaminophen 500 mg Tablet 1,000 mg PO Q6H PRN PRN (Reason: Pain 1-3 Or Fever) Qty: 0 0RF chlordiazepoxide HCl 5 mg Capsule 10 mg PO Q12H PRN (Reason: anxiety) 30 Days Qty: 120 0RF Eliquis 5 mg Tablet 5 mg PO BID 30 Days Qty: 60 0RF venlafaxine 37.5 mg Capsule,Extended Release 24hr 37.5 mg PO DAILY 30 Days Qty: 30 0RF potassium chloride 20 mEq Tablet,Er Particles/Crystals 20 meq PO DAILYCM 30 Days Qty: 30 0RF meclizine [Travel-Ease (meclizine)] 25 mg Tablet 25 mg PO QAM 30 Days Qty: 30 0RF ferrous sulfate [FeroSul] 325 mg (65 mg iron) Tablet 650 mg PO DAILYCM 30 Days Qty: 60 0RF Discontinued atorvastatin 40 mg tablet See Rx Instructions .ROUTE .COMPLEX Qty: 90 2RF Dose Instruction: TAKE 1 TABLET DAILY Rx Instructions: TAKE 1 TABLET DAILY Eliquis 2.5 mg tablet 2.5 mg PO BID Qty: 180 1RF ferrous sulfate [Feosol] 325 mg (65 mg iron) tablet 650 mg PO QDAY amlodipine 5 mg tablet 5 mg PO DAILY Qty: 90 1RF betamethasone dipropionate 0.05 % cream 1 applic TOPICAL DAILY PRN (Reason: rash) Qty: 45 1RF meclizine 25 mg tablet 25 mg PO BID PRN (Reason: dizziness) venlafaxine 37.5 mg tablet 37.5 mg PO QDAY Qty: 90 1RF chlordiazepoxide HCl 5 mg capsule 10 mg PO Q12H PRN (Reason: anxiety) Qty: 60 0RF No Action (DME) blood pressure monitor Kit See Rx Instructions .ROUTE .MEDSUPPLY Qty: 1 0RF Rx Instructions: As directed (DME) handicap placard See Rx Instructions .Route .MEDSUPPLY Qty: 1 0RF Rx Instructions: Duration 5 years, difficulty with ambualation. Referrals / Follow Up: Cole Cardona DO [Primary Care Provider] - Disposition Disposition (needs filled in before D/C Order can be placed): Home Health Service 07/20/24 0817 <Electronically signed by Silvestre Garcia MD> Cosigner Signature (if applicable): CC: Dr. Cole Cardona DO; Dr. Silvestre Garcia MD~ Signed [facility] Work Phone: [phone] 139-113505-27-[address] [facility] Medical Records Department [address] [place] [id number] Discharge Summary 07/20/24 0810 MR#: [id number] Acct: [id number] Name: SCOTT TALBERT Rep #:[id number] : 1945 78 From: Silvestre Garcia MD PCP: Dr. Cole Cardona DO Status:AD M IN Location: [facility] TCU03-1 Providers Date of Admission: 06/30/24 Primary Care Physician: Dr. Cole Cardona DO Reason For Visit: [place] Diagnosis Discharge Diagnosis (1) Debility: Status: Acute Code(s): R53.81 - Other malaise (2) 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: Status: Acute Code(s): C79.51 - Secondary malignant neoplasm of bone; C80.1 - Malignant (primary) neoplasm, unspecified (3) Essential (primary) hypertension: Status: Acute Code(s): I10 - Essential (primary) hypertension (4) DVT (deep venous thrombosis): Status: Acute Code(s): I82.409 - Acute embolism and thrombosis of unspecified deep veins of unspecifiedlower extremity (5) Hyperlipidemia, unspecified: Status: Acute Code(s): E78.5 - Hyperlipidemia, unspecified (6) Anxiety: Status: Acute Code(s): F41.9 - Anxiety disorder, unspecified (7) Rash: Status: Acute Code(s): R21 - Rash and other nonspecific skin eruption (8) Iron deficiency anemia: Status: Acute Code(s): D50.9 - Iron deficiency anemia, unspecified (9) BPPV (benign paroxysmal positional vertigo): Status: Acute Code(s): H81.10 - Benign paroxysmal vertigo, unspecified ear (10) Major depression: Status: Acute Code(s): F32.9 - Major depressive disorder, single episode, unspecified Plan 78 year old female with below past medical history recently hospitalized for weakness, postobstructive pneumonia, metastatic cancer unknown primary, failed discharge home, admitted to TCU with debility, here for rehabilitation, strengthening, prior to discharge to [facility]. * Debility - PT/OT. * Pain - Tylenol 1000mg po q6 prn pain (1-10). * Bowel - senna/colace 1 tablet bid, Magnesium citrate 300mL daily prn. * Adult immunization - Adminsiter pneumonia vaccine, covid vaccine, flu vaccine as appropriate. * DVT prophylaxis - Eliquis. * Metastatic cancer unknown primary - PET scan, refer to Oncology for help with diagnosis, residentunlikely to agree to treatment, but may want to know her diagnosis/prognosis. * Hypertension - Amlodipine 5mg daily. * DVT - Eliquis 2.5mg bid. * Hyperlipidemia - Atorvastatin 40mg qhs. * Rash - Clobetasol cream topical daily prn. * Iron deficiency anemia - Ferrous sulfate 650mg daily. * BPPV - Meclizine 25mg bid prn. * Tinea Corporis - Nystatin powder topical bid. The following psychotropic medication was present on admission: Librium 10mg q12prn. Psychotropic medication therapy is indicated for a diagnosis of: Anxiety. Based on my clinical evaluation, continuation of the medication is necessary at this time. Gradual dose reduction plan (select one): ____ GDR will be attempted. Will monitor patient symptoms and behaviors in response to GDR. __x__ GRD contraindicated. 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 The following psychotropic medication was present on admission: Venlafaxine 37.5mg daily. Psychotropic medication therapy is indicated for a diagnosis of: Major Depression. Based on my clinical evaluation, continuation of the medication is necessary at this time. Gradual dose reduction plan (select one): ____ GDR will be attempted. Will monitor patient symptoms and behaviors in response to GDR. __x__ GRD contraindicated. 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 Medications at Discharge Home Medications blood pressure monitor #1 ea 06/02/23 handicap placard #1 ea 05/26/24 acetaminophen 500 mg tablet 1,000 mg (2 x 500 mg) PO Q6H PRN PRN Pain 1-3 Or Fever #0 tabs 07/20/24 amlodipine 5 mg tablet 5 mg PO DAILY 30 days #30 tabs 07/20/24 apixaban 5 mg tablet (Eliquis) 5 mg PO BID 30 days #60 tabs 07/20/24 atorvastatin 40 mg tablet 40 mg PO QHS 30 days #30 tabs 07/20/24 chlordiazepoxide HCl 5 mg capsule 10 mg (2 x 5 mg) PO Q12H PRN anxiety 30 days #120 caps 07/20/24 ferrous sulfate 325 mg (65 mg iron) tablet (FeroSul) 650 mg (2 x 325 mg (65 mg iron)) PO DAILYCM 30days #60 tabs 07/20/24 meclizine 25 mg tablet (Travel-Ease (meclizine)) 25 mg PO QAM 30 days #30 tabs 07/20/24 potassium chloride 20 mEq tablet,extended release(part/cryst) 20 meq PO DAILYCM 30 days #30 tabs 07/20/24 venlafaxine 37.5 mg capsule,extended release 24 hr 37.5 mg PO DAILY 30 days #30 caps 07/20/24 Hospital Course Operations None Procedures None Summary of Care Provided Minutes Spent on Discharge: 35 Hospital Course: 78 year old female with below past medical history recently hospitalized for weakness, postobstructive pneumonia, metastatic cancer unknown primary, failed discharge home, admitted to TCU with debility, here for rehabilitation, strengthening, prior to discharge to [facility]. Resident declined evaluation for metastatic cancer unknown primary. Discharge home 07/20/2024, then plan to move into [facility] 07/21/2024; [facility] PT/OT. Physical Exam Const alert General Appearance: cooperative HEENT normocephalic Eyes PERRL and EOMs intact bilaterally Neck supple, no JVD and no carotid bruits Resp normal respiratory effort, normal air movement and clear to auscultation bilaterally Cardio regular rate and regular rhythm GI normal to inspection, nondistended, normoactive bowel sounds, non-tender and non-distended Extremity normal capillary refill General Extremity: Negative for edema Skin no rashes or lesions noted General Skin Exam: no breakdown Psych affect normal Appearance: appropriate Weight / BMI Weight Weight: 77.746 kg Body Mass Index (BMI) 31.3 ABG / Lab / Microbiology Data 07/15/24 05:33 07/15/24 05:33 D/C Instructions Discharge Diet: No restrictions Discharge Activity: Return to Normal Activity, May Shower and Use Walker Weight Bearing Status: Weight bearing as tolerated Call your doctor if you observe: Fever of 101 or Higher, Inability to urinate, Inability to have a bowel movement, Shortness of breath, Dizziness, Fainting spells, Swelling in the ankles, Chest pain and Uncontrolled pain DC O2, CPAP, BIPAP Needs Home O2 Discharge instructions: No Additional Instructions: Discharge home 07/20/2024, then plan to move into [facility] 07/21/2024; [facility] PT/OT. Meaningful Use Info Meaningful Use Meaningful Use Diagnoses (Choose all that apply): None applicable Ischemic Stroke Statin Dosing Therapy Reference: STATIN DOSE THERAPY REFERENCE: * Patients > 75 years receive moderate or high dose statin therapy. * Patients 75 years or YOUNGER should receive HIGH intensity statin dose unless contraindicated. You will be required to document reason for non-treatment if statin daily dose does not meet guidelines. HIGH DOSE STATIN THERAPY DAILY Atorvastatin > than or = to 40 mg Rosuvastatin > than or = to 20 mg Amlodipine + Atorvastatin > than or = to 2.5/40 mg Ezetimibe + Simvastatin 10/80 mg Simvastatin 80mg Discharge Plan Admission Admit Date/Time: 06/30/24 18:41 Primary Reason for Your Visit: Debility. Attending Provider: Silvestre Garcia Chi Primary Care Provider: Cole Cardona Instructions Additional Instructions / Restrictions: Discharge home 07/20/2024, then plan to move into [facility] 07/21/2024; [facility] PT/OT. Discharge Orders/Prescriptions Prescriptions: New atorvastatin 40 mg Tablet 40 mg PO QHS 30 Days Qty: 30 0RF amlodipine 5 mg Tablet 5 mg PO DAILY 30 Days Qty: 30 0RF acetaminophen 500 mg Tablet 1,000 mg PO Q6H PRN PRN (Reason: Pain 1-3 Or Fever) Qty: 0 0RF chlordiazepoxide HCl 5 mg Capsule 10 mg PO Q12H PRN (Reason: anxiety) 30 Days Qty: 120 0RF Eliquis 5 mg Tablet 5 mg PO BID 30 Days Qty: 60 0RF venlafaxine 37.5 mg Capsule,Extended Release 24hr 37.5 mg PO DAILY 30 Days Qty: 30 0RF potassium chloride 20 mEq Tablet,Er Particles/Crystals 20 meq PO DAILYCM 30 Days Qty: 30 0RF meclizine [Travel-Ease (meclizine)] 25 mg Tablet 25 mg PO QAM 30 Days Qty: 30 0RF ferrous sulfate [FeroSul] 325 mg (65 mg iron) Tablet 650 mg PO DAILYCM 30 Days Qty: 60 0RF Discontinued atorvastatin 40 mg tablet See Rx Instructions .ROUTE .COMPLEX Qty: 90 2RF Dose Instruction: TAKE 1 TABLET DAILY Rx Instructions: TAKE 1 TABLET DAILY Eliquis 2.5 mg tablet 2.5 mg PO BID Qty: 180 1RF ferrous sulfate [Feosol] 325 mg (65 mg iron) tablet 650 mg PO QDAY amlodipine 5 mg tablet 5 mg PO DAILY Qty: 90 1RF betamethasone dipropionate 0.05 % cream 1 applic TOPICAL DAILY PRN (Reason: rash) Qty: 45 1RF meclizine 25 mg tablet 25 mg PO BID PRN (Reason: dizziness) venlafaxine 37.5 mg tablet 37.5 mg PO QDAY Qty: 90 1RF chlordiazepoxide HCl 5 mg capsule 10 mg PO Q12H PRN (Reason: anxiety) Qty: 60 0RF No Action (DME) blood pressure monitor Kit See Rx Instructions .ROUTE .MEDSUPPLY Qty: 1 0RF Rx Instructions: As directed (DME) handicap placard See Rx Instructions .Route .MEDSUPPLY Qty: 1 0RF Rx Instructions: Duration 5 years, difficulty with ambualation. Referrals / Follow Up: Cole Cardona DO [Primary Care Provider] - Disposition Disposition (needs filled in before D/C Order can be placed): Home Health Service 07/20/24 0817 Cosigner Signature (if applicable): CC: Dr. Cole Cardona DO; Dr. Silvestre Garcia MD~ Signed [facility]05-27-2025 [facility]05-18-2025 Radiology Diagnostic study note [facility] Imaging Services [address] [place] [address] Shoulder min 2 Views MR#: [id number] Acct: [id number] Name: SCOTT TALBERT Rep #: [id number] : 1945 F 78 From: Maricel Ordoñez MD PCP: Dr. Cole Cardona DO Status: AD M IN Study:Shoulder min 2 Views Date of Exam: 07/11/24 Exam# [id number] Ordering Dr: Silvestre Garcia MD PROCEDURE: SHOULDER MIN 2 VIEWS 07/11/2024 REASON FOR EXAM: PAIN AND POPPING SOUND PER PATIENT TECHNIQUE: Three views of the right shoulder COMPARISON: CTA chest 06/12/2024 FINDINGS: Redemonstration destructive lytic lesion involving the right acromion. The softtissue lesion extends superiorly within the shoulder. There is destruction of the acromioclavicular joint. No other suspicious lesions identified. Mild degenerative changes of the glenohumeral joint. Imaged lung davidson are clear. RAD/Shoulder min 2 Views IMPRESSION: See above Reading Location: [facility] CC: Dr. Cole Cardona DO; Dr. Silvestre Garcia MD ~ [employer] Insight Manager: Signed [facility]05-16-2025 History and physical note Author Silvestre Garcia [facility] Note Date/Time July 09, 2024 2:57p m [facility] Medical Records Department [address] [place] [address] History & Physical Exam 06/30/242150 MR#: [id number] Acct: [id number] Name: SCOTT TALBERT Rep #:[id number] : 1945 78 From: Silvestre Garcia MD PCP: Dr. Cole Cardona, DO Status:AD M IN [facility] HPI - General General Date of Admission: 06/30/24 Date of Service: 06/30/24 Chief Complaint: Here for rehabilitation. HPI Narrative Patient is a 78-year-old female who presented to [facility] ED on 06/13/2024 with worsening weakness over past 4 to 5 days. She is having difficulty in getting up and ambulate. She was given antibiotic [facility] for presumed UTI but she did not get better. 1. Acute on chronic debility ? Admit under observation status to [facility]. PT/OT/case management consulted. On exam patient with good muscle strength of hip and knee joints. Has mild gaitimbalance sometimes. Probably from chronic disease including osteoarthritis with suspected underlying malignancy 06/16: Probably patient be discharged to TCU tomorrow. 06/17: As per clinical case manager, she did not meet criteria for discharge to SNF therefore being discharged home with Augmentin. 2. Concern for postobstructive pneumonia, ? CTA chest showed dense left lower lobe consolidation with concern for possiblepostobstructive pneumonia; see HPI for further details on this. UA mildly infectious appearing. Urine culture from 06/11 growing only 11 K -25,000 gram- negative rods therefore UTI ruled out. she has been treated with Keflex since for UTI without much improvement. Patient did not have IV and vancomycin. Air Brake Man consulted. 06/15: [facility] but she states he needs to go to custodial to get her to go home therefore could not be discharged. 06/17: Patient 4 days of IV antibiotics here. Discharged on 5 more days of Augmentin and doxycycline. Advised to follow-up with the ld teacher as mentioned above in 2 weeks. 3. Concern for malignancy: Previous CT scan abdomen/ shows focal irregular wall thickening of cecum and ascending colon with luminal narrowing suggestive of neoplasm. There is similar finding in December 2020 but at that time patientrefused for colonoscopy. Patient continues to have normal stools and reports no right-sided abdominal pain. Other concerning findings include right expansile lytic lesion of right acromion with associated pathologic fracture, mildly enlarged subcarinal and left hilar lymph nodes, L4 vertebral body 1.4 cm sclerotic lesion, and prominentretroperitoneal and right lower quadrant lymph nodes. GI consulted 06/15: Patient refused for colonoscopy. She was upset when she was started on clear liquid yesterday. 4. Persistent sinus tachycardia ? Sinus tachycardia to the 120s to low 130s in the ED. improved with IV fluid 5. Left lower lobe consolidative mass ? See HPI for further details. In short, was found to have consolidative mass in December and recently had bronchoscopy with biopsy done in early May with biopsy results negative for malignancy. Chronic medical conditions: ? Class I obesity: BMI 33 on admit. Complicates hospital course, care and prognosis. ? Hypertension: Continue home amlodipine. ? Hyperlipidemia: Continue home statin. ? Anxiety/depression: Continue home venlafaxine and chlordiazepoxide twice dailyas needed. ? 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 ? Recent GI bleed: Had GI bleed in December that was suspected secondary to supratherapeutic INR while patient was on warfarin. Patient refused EGD or colonoscopy. GI bleed resolved with improvement in INR and hemoglobin has sinceimproved. 06/17/2024 Patient did well with therapy, discharged home. Patient failed discharge home, she told me she has been sitting in a recliner since discharge home 2/2 weakess. 06/30/2024 Admit to TCU with debility, here for rehabilitation, strengthening, prior to discharge home. Regarding diagnosis of metastatic cancer, patient is ambivalent about evaluation, treatment. She states her is suffering dementia, living at memory care unit at [facility], she does not want treatment of any kind. PCP recommended PET scan, I also offered referral to Oncology to help her in gettinga diagnosis. Another option is to do no further investigation, discharge resident to [facility] with hospice, allowing her to comfortably near her . So far plan is for PET scan, oncology appointment. [facility] Medical History (Updated 06/30/24 @ 22:[address] Silvestre Garcia MD) DVT (deep venous thrombosis) Pneumonia Osteoarthritis High triglycerides High cholesterol Arthritis Home Medications ?Medication ?Instructions ?Recorded ?Last Taken ?Type blood pressure monitor #1 ea 06/02/23 Unknown Rx venlafaxine 37.5 mg tablet 37.5 mg PO QDAY depression #90 tabs 07/11/23 Unknown Rx atorvastatin 40 mg tablet See Rx Instructions .Route 0 08/19/23 Unknown Rx .COMPLEX cholesterol #90 tabs chlordiazepoxide HCl 5 mg capsule 10 mg (2 x 5 mg) PO Q12H PRN 12/24/23 Unknown Rx anxiety #60 caps apixaban 2.5 mg tablet (Eliquis) 2.5 mg PO BID blood t hinner #180 02/04/24 Unknown Rx tabs amlodipine 5 mg tablet 5 mg PO DAILY heart #90 tabs 03/23/24 Unknown Rx betamethasone dipropionate 0.05 % 1 applic topical EVAN LY PRN rash 03/23/24 Unknown Rx topical cream #45 grams ferrous sulfate 325 mg (65 mg 650 mg PO QDAY supplemen t 03/23/24 Unknown History iron) tablet (Feosol) handicap placard #1 ea 05/26/24 Unknown Rx meclizine 25 mg tablet 25 mg PO BID PRN dizziness 0 06/12/24 Unknown History Allergy/AdvReac Type Severity Reaction Status Date / Time prednisone Allergy Unknown Rash Verified 06/23/24 14:44 diphenhydramine (From Allergy Rash Verified 06/23/24 14:44 Benadryl) Influenza Virus Vaccines AdvReac Intermediate Other Verified 06/23/24 14:44 (flu vaccine) Family History Mother Arthritis Brother Myocardial infarction Father Heart disease Surgical History History of bilateral knee replacement History of umbilical hernia repair History of tonsillectomy Social History (Updated 06/30/24 @ 22:[address] Silvestre Garcia MD) household members: none Smoking Status: Never smoker alcohol intake: never substance use type: does not use what type of physical activity do you participate in: swimming ROS Constitutional Constitutional: Reports weakness; Denies chills, fever(s) or weight gain ENT HEENT: Denies headache(s), nasal congestion or nasal discharge Cardiovascular Cardiovascular: Denies chest pain or palpitations Respiratory/Chest Respiratory/Chest: Denies cough, excessive phlegm production or shortness of breath with exertion Gastrointestinal Gastrointestinal: Denies abdominal pain, nausea or vomiting Genitourinary Genitourinary: Denies dysuria Musculoskeletal Musculoskeletal: Denies joint pain or joint swelling Integumentary Integumentary: Denies rash or wounds Neurologic Neurologic: Denies focal weakness, numbness or tingling Psychiatric Psychiatric: Denies anxiety, auditory hallucinations, depression, homicidal ideation or suicidal ideation Vital Signs Vital Signs Vital Signs: 06/30/24 16:36 06/30/24 16:36 Temperature 98.9 F Temperature Source Temporal Pulse Rate 98 98 Pulse Rhythm Regular Pulse Strength Normal (2+) Respiratory Rate 18 18 Respiratory Effort Normal Non-Labored Respiratory Depth Normal Respiratory Pattern Normal Blood Pressure 107/66 Blood Pressure Mean 79 Blood Pressure Source Monitor Blood Pressure Position Semi-Fowlers Blood Pressure Location Left Arm Pulse Ox 94 94 Oxygen Delivery Method Room Air Room Air Weight Weight: 79.52 kg Body Mass Index (BMI) 32.1 Physical Exam Const alert General Appearance: cooperative HEENT normocephalic Eyes PERRL and EOMs intact bilaterally Neck supple, no JVD and no carotid bruits Resp normal respiratory effort, normal air movement and clear to auscultation bilaterally Cardio regular rate and regular rhythm GI normal to inspection, nondistended, normoactive bowel sounds, non-tender and non-distended Extremity normal capillary refill General Extremity: Negative for edema Skin no rashes or lesions noted General Skin Exam: no breakdown Psych affect normal Appearance: appropriate Assessment & Plan Assessment/Plan (1) Debility: (2) 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: (3) Essential (primary) hypertension: (4) DVT (deep venous thrombosis): (5) Hyperlipidemia, unspecified: (6) Anxiety: (7) Rash: (8) Iron deficiency anemia: (9) BPPV (benign paroxysmal positional vertigo): (10) Major depression: PLAN: Plan 78 year old female with below past medical history recently hospitalized for weakness, postobstructive pneumonia, metastatic cancer unknown primary, failed discharge home, admitted to TCU with debility, here for rehabilitation, strengthening, prior to discharge to [facility]. * Debility - PT/OT. * Pain - Tylenol 1000mg po q6 prn pain (1-10). * Bowel - senna/colace 1 tablet bid, Magnesium citrate 300mL daily prn. * Adult immunization - Adminsiter pneumonia vaccine, covid vaccine, flu vaccine as appropriate. * DVT prophylaxis - Eliquis. * Metastatic cancer unknown primary - PET scan, refer to Oncology for help with diagnosis, resident unlikely to agree to treatment, but may want to know her diagnosis/prognosis. * Hypertension - Amlodipine 5mg daily. * DVT - Eliquis 2.5mg bid. * Hyperlipidemia - Atorvastatin 40mg qhs. * Rash - Clobetasol cream topical daily prn. * Iron deficiency anemia - Ferrous sulfate 650mg daily. * BPPV - Meclizine 25mg bid prn. * Tinea Corporis - Nystatin powder topical bid. The following psychotropic medication was present on admission: Librium 10mg q12prn. Psychotropic medication therapy is indicated for a diagnosis of: Anxiety. Based on my clinical evaluation, continuation of the medication is necessary at this time. Gradual dose reduction plan (select one): ____ GDR will be attempted. Will monitor patient symptoms and behaviors in response to GDR. __x__ GRD contraindicated. 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 The following psychotropic medication was present on admission: Venlafaxine 37.5mg daily. Psychotropic medication therapy is indicated for a diagnosis of: Major Depression. Based on my clinical evaluation, continuation of the medication is necessary at this time. Gradual dose reduction plan (select one): ____ GDR will be attempted. Will monitor patient symptoms and behaviors in response to GDR. __x__ GRD contraindicated. 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 06/30/24 0482 <Electronically signed by Silvestre Garcia MD> Cosigner Signature (if applicable): CC: Dr. Cole Cardona DO; Dr. Silvestre Garcia MD~ Signed ADDENDUM by Dr. Silvestre Garcia MD on 07/09/24 at 1457 Addendum Pneumonia - CXR shows left basilar pneumonia, Levaquin 750mg daily x 7 days. 07/09/24 1457<Electronically signed by Silvestre Garcia MD> Cosigner Signature (if applicable): cc: Dr. Cole Cardona, DO; Dr. Silvestre Garcia MD ~* Signed [facility] Work Phone: [phone]) 488-105505-16-[address] [facility] Medical Records Department [address] [place] [address] History & Physical Exam 06/30/24 2151 MR#: [id number] Acct: [id number] Name: SCOTT TALBERT Rep #:[id number] : 1945 78 From: Silvestre Garcia MD PCP: Dr. Cole Cardona, Status:AD M IN Location: [facility] HPI - General General Date of Admission: 06/30/24 Date of Service: 06/30/24 Chief Complaint: Here for rehabilitation. HPI Narrative Patient is a 78-year-old female who presented to [facility] ED on 06/13/2024 with worsening weakness over past 4 to 5 days. She is having difficulty in getting up and ambulate. [facility] but she did not get better. 1. Acute on chronic debility ? Admit under observation status to [facility]. PT/OT/case management consulted. On exam patient with good muscle strength of hip and knee joints. Has mild gaitimbalance sometimes. Probably from chronicdisease including osteoarthritis with suspected underlying malignancy 06/16: Probably patient be discharged to TCU tomorrow. 06/17: As per clinical case manager, she did not meet criteria for discharge to SNF therefore being discharged home with Augmentin. 2. Concern for postobstructive pneumonia, ? CTA chest showed dense left lower lobe consolidation with concern for possiblepostobstructive pneumonia; see HPI for further details on this. UA mildly infectious appearing. Urine culture from 06/11growing only 11 K -25,000 gram-negative rods therefore UTI ruled out. she has been treated with Keflex since for UTI without much improvement. Patient did not have IV and vancomycin. Air Brake Man consulted. 06/15: Patient stated she has follow-up with [facility] Dr. Vann but she states he needs to go to custodial to get her to go home therefore could not be discharged. 06/17: Patient 4 days of IV antibiotics here. Discharged on 5 more days of Augmentin and doxycycline. Advised to follow-up with the ld teacher as mentioned above in 2 weeks. 3. Concern for malignancy: Previous CT scan abdomen shows focal irregular wall thickening of cecum and ascending colon with luminal narrowing suggestive of neoplasm. There is similar finding in December 2020 but at that time patientrefused for colonoscopy. Patient continues to have normal stools and reports no right-sided abdominal pain. Other concerningfindings include right expansile lytic lesion of right acromion with associated pathologic fracture, mildly enlarged subcarinal and left hilar lymph nodes, L4 vertebral body 1.4 cm sclerotic lesion, and prominentretroperitoneal and right lower quadrant lymph nodes. GI consulted 06/15: Patient refused for colonoscopy. She was upset when she was started on clear liquid yesterday. 4. Persistent sinus tachycardia ? Sinus tachycardia to the 120s to low 130s in the ED. improved with IV fluid 5. Left lower lobe consolidative mass ? See HPI for further details. In short, was found to have consolidative mass in December and recently had bronchoscopy with biopsy done in early May with biopsy results negative for malignancy. Chronic medical conditions: ? Class I obesity: BMI 33 on admit. Complicates hospital course, care and prognosis. ? Hypertension: Continue home amlodipine. ? Hyperlipidemia: Continue home statin. ? Anxiety/depression: Continue home venlafaxine and chlordiazepoxide twice dailyas needed. ? 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 ? Recent GI bleed: Had GI bleed in December that was suspected secondary to supratherapeutic INR while patient was on warfarin. Patient refused EGD or colonoscopy. GI bleed resolved with improvement in INR and hemoglobin has sinceimproved. 06/17/2024 Patient did well with therapy, discharged home. Patient failed discharge home, she told me she has been sitting in a recliner since discharge home 2/2 weakess. 06/30/2024 Admit to TCU with debility, here for rehabilitation, strengthening, prior to discharge home. Regarding diagnosis of metastatic cancer, patient is ambivalent about evaluation, treatment. She states her is suffering dementia, living at memory care unit at [facility], she does not wanttreatment of any kind. PCP recommended PET scan, I also offered referral to Oncology to help her ingettinga diagnosis. Another option is to do no further investigation, discharge resident to [facility] with hospice, allowing her to comfortably near her . So far plan is for PET scan, oncology appointment. [facility] Medical History (Updated 06/30/24 @ 22:[address] Silvestre Garcia MD) DVT (deep venous thrombosis) Pneumonia Osteoarthritis High triglycerides High cholesterol Arthritis Home Medications ?Medication ?Instructions ?Recorded ?Last Taken ?Type blood pressure monitor #1 ea 06/02/23 Unknown Rx venlafaxine 37.5 mg tablet 37.5 mg PO QDAY depression #90 tabs 07/11/23 Unknown Rx atorvastatin 40 mg tablet See Rx Instructions .Route 0 08/19/23 Unknown Rx .COMPLEX cholesterol #90 tabs chlordiazepoxide HCl 5 mg capsule 10 mg (2 x 5 mg) PO Q12H PRN 12/24/23 Unknown Rx anxiety #60 caps apixaban 2.5 mg tablet (Eliquis) 2.5 mg PO BID blood t hinner #180 02/04/24 Unknown Rx tabs amlodipine 5 mg tablet 5 mg PO DAILY heart #90 tabs 03/23/24 Unknown Rx betamethasone dipropionate 0.05 % 1 applic topical EVAN LY PRN rash 03/23/24 Unknown Rx topical cream #45 grams ferrous sulfate 325 mg (65 mg 650 mg PO QDAY supplemen t 03/23/24 Unknown History iron) tablet (Feosol) handicap placard #1 ea 05/26/24 Unknown Rx meclizine 25 mg tablet 25 mg PO BID PRN dizziness 0 06/12/24 Unknown History Allergy/AdvReac Type Severity Reaction Status Date / Time prednisone Allergy Unknown Rash Verified 06/23/24 14:44 diphenhydramine (From Allergy Rash Verified 06/23/24 14:44 Benadryl) Influenza Virus Vaccines AdvReac Intermediate Other Verified 06/23/24 14:44 (flu vaccine) Family History Mother Arthritis Brother Myocardial infarction Father Heart disease Surgical History History of bilateral knee replacement History of umbilical hernia repair History of tonsillectomy Social History (Updated 06/30/24 @ 22:[address] Silvestre Garcia MD) household members: none Smoking Status: Never smoker alcohol intake: never substance use type: does not use what type of physical activity do you participate in: swimming ROS Constitutional Constitutional: Reports weakness; Denies chills, fever(s) or weight gain ENT HEENT: Denies headache(s), nasal congestion or nasal discharge Cardiovascular Cardiovascular: Denies chest pain or palpitations Respiratory/Chest Respiratory/Chest: Denies cough, excessive phlegm production or shortness of breath with exertion Gastrointestinal Gastrointestinal: Denies abdominal pain, nausea or vomiting Genitourinary Genitourinary: Denies dysuria Musculoskeletal Musculoskeletal: Denies joint pain or joint swelling Integumentary Integumentary: Denies rash or wounds Neurologic Neurologic: Denies focal weakness, numbness or tingling Psychiatric Psychiatric: Denies anxiety, auditory hallucinations, depression, homicidal ideation or suicidal ideation Vital Signs Vital Signs Vital Signs: 06/30/24 16:36 06/30/24 16:36 Temperature 98.9 F Temperature Source Temporal Pulse Rate 98 98 Pulse Rhythm Regular Pulse Strength Normal (2+) Respiratory Rate 18 18 Respiratory Effort Normal Non-Labored Respiratory Depth Normal Respiratory Pattern Normal Blood Pressure 107/66 Blood Pressure Mean 79 Blood Pressure Source Monitor Blood Pressure Position Semi-Fowlers Blood Pressure Location Left Arm Pulse Ox 94 94 Oxygen Delivery Method Room Air Room Air Weight Weight: 79.52 kg Body Mass Index (BMI) 32.1 Physical Exam Const alert General Appearance: cooperative HEENT normocephalic Eyes PERRL and EOMs intact bilaterally Neck supple, no JVD and no carotid bruits Resp normal respiratory effort, normal air movement and clear to auscultation bilaterally Cardio regular rate and regular rhythm GI normal to inspection, nondistended, normoactive bowel sounds, non-tender and non-distended Extremity normal capillary refill General Extremity: Negative for edema Skin no rashes or lesions noted General Skin Exam: no breakdown Psych affect normal Appearance: appropriate Assessment & Plan Assessment/Plan (1) Debility: (2) 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: (3) Essential (primary) hypertension: (4) DVT (deep venous thrombosis): (5) Hyperlipidemia, unspecified: (6) Anxiety: (7) Rash: (8) Iron deficiency anemia: (9) BPPV (benign paroxysmal positional vertigo): (10) Major depression: PLAN: Plan 78 year old female with below past medical history recently hospitalized for weakness, postobstructive pneumonia, metastatic cancer unknown primary, failed discharge home, admitted to TCU with debility, here for rehabilitation, strengthening, prior to discharge to [facility]. * Debility - PT/OT. * Pain - Tylenol 1000mg po q6 prn pain (1-10). * Bowel - senna/colace 1 tablet bid, Magnesium citrate 300mL daily prn. * Adult immunization - Adminsiter pneumonia vaccine, covid vaccine, flu vaccine as appropriate. * DVT prophylaxis - Eliquis. * Metastatic cancer unknown primary - PET scan, refer to Oncology for help with diagnosis, residentunlikely to agree to treatment, but may want to know her diagnosis/prognosis. * Hypertension - Amlodipine 5mg daily. * DVT - Eliquis 2.5mg bid. * Hyperlipidemia - Atorvastatin 40mg qhs. * Rash - Clobetasol cream topical daily prn. * Iron deficiency anemia - Ferrous sulfate 650mg daily. * BPPV - Meclizine 25mg bid prn. * Tinea Corporis - Nystatin powder topical bid. The following psychotropic medication was present on admission: Librium 10mg q12prn. Psychotropic medication therapy is indicated for a diagnosis of: Anxiety. Based on my clinical evaluation, continuation of the medication is necessary at this time. Gradual dose reduction plan (select one): ____ GDR will be attempted. Will monitor patient symptoms and behaviors in response to GDR. __x__ GRD contraindicated. 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 The following psychotropic medication was present on admission: Venlafaxine 37.5mg daily. Psychotropic medication therapy is indicated for a diagnosis of: Major Depression. Based on my clinical evaluation, continuation of the medication is necessary at this time. Gradual dose reduction plan (select one): ____ GDR will be attempted. Will monitor patient symptoms and behaviors in response to GDR. __x__ GRD contraindicated. 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 06/30/24 5210 Cosigner Signature (if applicable): CC: Dr. Cole Cardona DO; Dr. Silvestre Garcia MD~ Signed ADDENDUM by Dr. Silvestre Garcia MD on 07/09/24 at 1457 Addendum Pneumonia - CXR shows left basilar pneumonia, Levaquin 750mg daily x 7 days. 07/09/24 1457 Cosigner Signature (if applicable): cc: Dr. Cole Cardona DO; Dr. Silvestre Garcia MD ~* Signed [facility]05-16-2025 Radiology Diagnostic study note [facility] Imaging Services [address] [place], [place] [id number] Chest PA and Lateral MR#: [id number] Acct: [id number] Name: SCOTT TALBERT Rep #: [id number] 7 : 1945 F 78 From: Quincy Young MD PCP: Dr. Cole Cardona DO Status: AD M IN Study:Chest PA and Lateral Date of Exam: 07/09/24 Exam# [id number] Ordering Dr: Silvestre Garcia MD PROCEDURE: CHEST PA AND LATERAL 07/09/2024 REASON FOR EXAM: BIBASILAR CRACKLES. TECHNIQUE: Frontal and lateral views of the chest. COMPARISON: Comparison is made with prior study dated June 14, 2024. FINDINGS: Hardware: None Heart: The heart is nonenlarged. Mediastinum: Calcification of the aortic arch. Lungs: Left lower lobe consolidation and small left pleural effusion. Bones: Degenerative changes are identified within the thoracic spine. RAD/Chest PA and Lateral IMPRESSION: Small left pleural effusion with left basilar infiltration. Reading Location: [id number] CC: Dr. Cole Cardona DO; Dr. Silvestre Garcia MD ~ Seniour Insight Manager: Signed [facility]05-13-2025 Note. MICRO - Microbiology PROCEDURE: Fungal Culture with Stain if Ind [*1] SOURCE: Bronchial Washing BODY SITE: Bronchial COLLECTED DATE/TIME: 06/02/2024 12:15 EDT RECEIVED DATE/TIME: 06/02/2024 15:41 EDT START DATE/TIME: 06/02/2024 15:41 EDT FREE TEXT SOURCE: Left FINAL REPORTS Final Report [] Verified Date/Time/Personnel: 07/06/2024 08:03 EDT No fungus isolated in 4 weeks. PRELIMINARY REPORTS Preliminary Report [] Verified Date/Time/Personnel: 06/07/2024 07:54 EDT No fungus isolated to date. Final report to follow. STAINS FUNSM [] Verified Date/Time/Personnel: 06/03/2024 12:20 EDT No fungal elements observed by calcofluor white stain. Performing Locations *1: This test was performed at: [facility], [address] [place] [address], [id number] , [facility] [id number] Progress note Author Chanda Brown [facility] Note Date/Time July 01, 2024 2:14pm [facility] Medical Records Department [address] [place] [id number] Progress Note - Pharmacy 07/01/24 1128 MR#: [id number] Acct: [id number] Name: SCOTT TALBERT Rep #:[id number] 2 : 1945 78 From: Chanda Brown PCP: Dr. Cole Cardona, DO Status:AD M IN Location: TCU U03-1 Documented by User: Chanda Brown 07/01/24 12:15 TCU RX Drug Regimen Review Subjective/Objective Subjective/Objective Subjective: 78 YOF admitted to TCU on 06/30/24 s/p hospitalization at [facility] with discharge home. Failure to thrive at home, so admitted to TCU for strengthening and rehabiliation. Objective: Allergies prednisone Allergy (Unknown, Verified 06/23/24 14:44) Rash diphenhydramine (From Benadryl) Allergy (Verified 06/23/24 14:44) Rash Influenza Virus Vaccines (flu vaccine) Adverse Reaction (Intermediate, Verified 06/23/24 14:44) Other flu like symptoms was told never to get a flu vaccine Current Medications Generic Name Dose Route Start Last Admin Trade Name Freq PRN Reason Stop Dose Admin Acetaminophen 1,000 mg 06/30/24 20:53 06/30/24 21:15 Acetaminophen 500 Mg Tablet PO 1,000 mg Q6H PRN PRN Administration Pain 1-10 or Fever Amlodipine Besylate 5 mg 07/01/24 10:00 07/01/24 08:55 Amlodipine 5 Mg Tablet PO 5 mg DAILY FOREIGN Administration Protocol Apixaban 2.5 mg 06/30/24 22:00 07/01/24 08:56 Apixaban 2.5 Mg Tablet ([facility]) PO 2.5 mg BID FOREIGN Administration Atorvastatin Calcium 40 mg 06/30/24 22:00 06/30/24 21:15 Atorvastatin Calcium 40 Mg Tablet PO 40 mg QHS FOREIGN Administration Calamine/Phenol 1 applic 06/30/24 22:00 07/01/24 09:04 Menthol/Lanolin/Calamine/Znox 113 Gm Tube TOPICAL 1 applic BID [facility] Administration Protocol Chlordiazepoxide 10 mg 06/30/24 18:29 Chlordiazepoxide 5 Mg Capsule PO Q12H PRN anxiety Clobetasol Propionate 1 applic 06/30/24 19:13 Clobetasol Propionate 0.05% Cream TOPICAL DAILY PRN rash Ferrous Sulfate 650 mg 07/01/24 08:00 07/01/24 08:55 Ferrous Sulfate 325 Mg Tablet PO 650 mg DAILYCM [facility] Administration Magnesium Citrate 300 ml 06/30/24 22:13 Magnesium Citrate 300 Ml PO DAILY PRN Constipation Meclizine HCl 25 mg 06/30/24 18:34 Meclizine Hcl 25 Mg Tablet PO BID PRN dizziness Nystatin 1 applic 06/30/24 22:00 07/01/24 09:04 Nystatin Powder 15gm Bottle TOPICAL 1 applic BID [facility] Administration Protocol Potassium Chloride 20 meq 07/02/24 08:00 Potassium Chloride Oral Tablet 20 Meq PO DAILYCM [facility] Senna/Docusate Sodium 1 tablet 07/01/24 10:00 07/01/24 08:56 Senna/Docusate Sodium 1 Tablet PO Not Given BID FOREIGN Sodium Chloride 10 - 40 ml 06/30/24 16:56 0.9% Saline Lock 10 Ml Syringe IV UD PRN SALINE FLUSH Tuberculin PPD 0.1 ml 07/08/24 10:00 Tuberculin,Purif.Prot.Deriv. 50 Tu/Ml Vial ID 07/08/24 10:01 X1 ONE Venlafaxine HCl 37.5 mg 07/01/24 10:00 07/01/24 08:54 Venlafaxine Xr 37.5 Mg Capsule PO 37.5 mg DAILY FOREIGN Administration Problem List Major depression (Acute) BPPV (benign paroxysmal positional vertigo) (Acute) Iron deficiency anemia (Acute) Rash (Acute) Anxiety (Acute) Hyperlipidemia, unspecified (Acute) DVT (deep venous thrombosis) (Acute) Essential (primary) hypertension (Acute) Debility (Acute) 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 (Acute) Vital Signs Temp Pulse Resp BP Pulse Ox O2 Del Method 99 F 100 16 125/72 H 93 Room Air 07/01/24 08:52 07/01/24 08:52 07/01/24 08:52 07/01/24 08:52 07/01/24 08:52 07/01/24 08:52 Oxygen Delivery Method Room Air Weight: 79.52 kg Body Mass Index (BMI) 32.1 Sodium 138 mmol/L (133-145) 07/01/24 05:00 Potassium 3.1 mmol/L (3.3-5.1) L 07/01/24 05:00 Chloride 101 mmol/L (98-108) 07/01/24 05:00 Carbon Dioxide 28.5 mmol/L (21.0-32.0) 07/01/24 05:00 Anion Gap 9 (5-15) 07/01/24 05:00 BUN 11 mg/dL (4-19) 07/01/24 05:00 Creatinine 0.44 mg/dL (0.70-1.20) L 07/01/24 05:00 Est GFR (MDRD) Non-Af 98 (>60) 07/01/24 05:00 BUN/Creatinine Ratio 24.0 RATIO (10-20) H 07/01/24 05:00 Glucose 134 mg/dL (70-99) H 07/01/24 05:00 Assessment/Plan: 1. Pain: Tylenol 1000mg PO Q6h PRN pain 1-10. Please continue to monitor for increased/decreased S/S pain, LFT with prolonged use (labs WNL 02/2024), PRN medication usage. - To date, the patient received 1 dose of Tylenol for pain rated 2/10 (post- admin pain rated 0/10). Patient's pain appears managed at this time. 2. History of DVT: Eliquis 2.5mg PO BID. Please continue to monitor S/S bleeding/bruising, H/H (hgb 10.6/ hct 32.3 on 07/01), platelets (385 on 07/01). The patient is currently taking this medication for history of a DVT, which does notqualify for Eliquis dose reduction. The recommended dose of Eliquis for DVT treatment/ prevention of recurrence is 5mg PO BID. Please consider changing doseif clinically indicated, thank you. 3. HTN: Amlodipine 5mg PO Daily. Please continue to monitor blood pressure (osbk476/72), swelling of the lower extremities, flushing. 4. HLD: Lipitor 40mg PO QHS. Please continue to monitor for muscles cramping/pain, lipid panel annually or sooner if clinically indicated (none on file per EMR review). 5. BPPV: Meclizine 25mg PO BID PRN vertigo. Please continue to monitor for PRN medication usage and effectiveness. This is a BEERs criteria medication which can cause an increased risk of anticholinergic properties in patients >65 years of age. Please monitor patient carefully for side effects of medication and evaluate risk v. benefit of use should severe side effects occur. - The patient has not required any PRN doses of medication since admission. 6. Hypokalemia: K-Dur 20mEq PO Daily. Please continue to monitor potassium levels (last 3.1mmol/L on 07/01), GI upset, N/V. 7. Iron Deficiency anemia: Ferrous sulfate 650mg PO Daily. Please continue to monitor iron studies as clinically indicated, H/H, nausea/vomiting/stomach upset, constipation. 8. Rash: Clobetasol cream topically BID. Please continue to monitor for resolution of rash, skin irritation. 9. Skin Integrity: Calmoseptine topically BID, Nystatin topically BID. Please continue to monitor for skin irritation, redness, ulcer/wound formation. 10. Bowel: Senna/Docusate 1 tab PO BID, Magnesium citrate 300mL PO daily PRN. Please continue to monitor for increased/decreased constipation and/or diarrhea,PRN medication use. Please discontinue scheduled medications should diarrhea develop. - To date, the patient has not had a documented BM (admission <24hr ago). Please consider giving PRN medication if no documented BM in 48-72hrs. Assessment/Plan for indications treated with psychotropic medications: 1. Depression: Effexor XR 37.5mg PO Daily. Monitor for diarrhea, nausea, appetite/weight loss, anxiety or drowsiness, suicidal thoughts or behaviors (Boxed Warning), symptoms of bleeding, symptoms of serotonin syndrome (including agitation, confusion, hyperreflexia, rigidity/myoclonus, tremor, tachycardia, tachypnea), sodium levels (Na =138 on 07/01). Monitor blood pressure. BP range since admission = 107-125/66-72 Monitor for orthostatic hypotension, including postural dizziness, syncope or falls. Check orthostatic vital signs if suspicion of orthostasis. Monitor for hepatotoxicity (abdominal pain, nausea, jaundice, dark urine, AST/ALT as clinically indicated). AST/ALT WNL 02/2024. Monitor for efficacy including resident symptoms, behaviors and indications of distress. Monitor for tolerability including mental status, cognition, excessivesleepiness, withdrawal or decreased participation in activities and decline in physical functioning. Maximize use of nonpharmacologic/behavioral interventions to facilitate dose reduction or discontinuation as appropriate. Please evaluate the appropriateness of GDR unless contraindicated. If appropriate, GDR should be attempted in 2 separate quarters within the first year of use or admission to TCU. If GDR attempted, monitor resident symptoms/behaviors. 2. Anxiety: Librium 10mg PO Q12h PRN Anxiety. Monitor for sedation, mental status and cognition. Monitor for falls (risk factor for falls) and implement fall prevention strategies. Monitor for respiratory depression. RR range since admission = 16- 18/ min. Monitor for tolerability including mental status, cognition, excessive sleepiness, withdrawal or decreased participation in activities and decline in physical functioning. Monitor prn usage and efficacy of prn doses including resident symptoms, behaviors and indications of distress. Maximize use of nonpharmacologic/behavior interventions to minimize use of prn medication. Prn psychotropic order must be renewed at 14 days per policy. Evaluate continued need for medication, effect of prn medication on resident?s symptoms/distress and tolerability to determine the appropriateness of order renewal. Medical chart and medication regimen reviewed. The following medication irregularities or issues were identified: 1. DVT: Eliquis 2.5mg PO BID. The patient is currently taking this medication for history of a DVT, which does not qualify for Eliquis dose reduction. The recommended dose of Eliquis for DVT treatment/ prevention of recurrence is 5mg PO BID. Please consider changing dose if clinically indicated, thank you. 2. HLD: Lipitor 40mg PO QHS. No lipid panel on file per EMR review. if clinically indicated, please consider obtaining a lipid panel, thank you. Date Date of Note: 07/01/24 Documented by User: Dr. Silvestre Garcia MD 07/01/24 14:14 TCU RX Drug Regimen Review Provider Comments Provider responsibility Provider Comments to Recommendations by Pharmacy Agree 07/01/24 1215 <Electronically signed by Chanda Brown> Chanda Brown Cosigner Signature (if applicable): 07/01/24 1414 <Electronically signed by Silvestre Garcia MD> CC: ~ Signed [facility] Work Phone: 1(780) 994-438005-08-[address] [facility] Medical Records Department [address] [place] [address] Progress Note - Pharmacy 07/01/24 1128 MR#: [id number] Acct: [id number] Name: SCOTT TALBERT Rep #:[id number] 2 : 1945 78 From: Chanda Brown PCP: Dr. Cole Cardona, DO Status:AD M IN Location: [facility]03- Documented by User: Chanda Brown 07/01/24 12:15 TCU RX Drug Regimen Review Subjective/Objective Subjective/Objective Subjective: 78 YOF admitted to TCU on 06/30/24 s/p hospitalization at [facility] with discharge home. Failure to thrive at home, so admitted to TCU for strengthening and rehabiliation. Objective: Allergies prednisone Allergy (Unknown, Verified 06/23/24 14:44) Rash diphenhydramine (From Benadryl) Allergy (Verified 06/23/24 14:44) Rash Influenza Virus Vaccines (flu vaccine) Adverse Reaction (Intermediate, Verified 06/23/24 14:44) Other flu like symptoms was told never to get a flu vaccine Current Medications Generic Name Dose Route Start Last Admin Trade Name Shira PRN Reason Stop Dose Admin Acetaminophen 1,000 mg 06/30/24 20:53 06/30/24 21:15 Acetaminophen 500 Mg Tablet PO 1,000 mg Q6H PRN PRN Administration Pain 1-10 or Fever Amlodipine Besylate 5 mg 07/01/24 10:00 07/01/24 08:55 Amlodipine 5 Mg Tablet PO 5 mg DAILY FOREIGN Administration Protocol Apixaban 2.5 mg 06/30/24 22:00 07/01/24 08:56 Apixaban 2.5 Mg Tablet ([facility]) PO 2.5 mg BID FOREIGN Administration Atorvastatin Calcium 40 mg 06/30/24 22:00 06/30/24 21:15 Atorvastatin Calcium 40 Mg Tablet PO 40 mg QHS FOREIGN Administration Calamine/Phenol 1 applic 06/30/24 22:00 07/01/24 09:04 Menthol/Lanolin/Calamine/Znox 113 Gm Tube TOPICAL 1 applic BID [facility] Administration Protocol Chlordiazepoxide 10 mg 06/30/24 18:29 Chlordiazepoxide 5 Mg Capsule PO Q12H PRN anxiety Clobetasol Propionate 1 applic 06/30/24 19:13 Clobetasol Propionate 0.05% Cream TOPICAL DAILY PRN rash Ferrous Sulfate 650 mg 07/01/24 08:00 07/01/24 08:55 Ferrous Sulfate 325 Mg Tablet PO 650 mg DAILYCM FOREIGN Administration Magnesium Citrate 300 ml 06/30/24 22:13 Magnesium Citrate 300 Ml PO DAILY PRN Constipation Meclizine HCl 25 mg 06/30/24 18:34 Meclizine Hcl 25 Mg Tablet PO BID PRN dizziness Nystatin 1 applic 06/30/24 22:00 07/01/24 09:04 Nystatin Powder 15gm Bottle TOPICAL 1 applic BID [facility] Administration Protocol Potassium Chloride 20 meq 07/02/24 08:00 Potassium Chloride Oral Tablet 20 Meq PO DAILYCM FOREIGN Senna/Docusate Sodium 1 tablet 07/01/24 10:00 07/01/24 08:56 Senna/Docusate Sodium 1 Tablet PO Not Given BID FOREIGN Sodium Chloride 10 - 40 ml 06/30/24 16:56 0.9% Saline Lock 10 Ml Syringe IV UD PRN SALINE FLUSH Tuberculin PPD 0.1 ml 07/08/24 10:00 Tuberculin,Purif.Prot.Deriv. 50 Tu/Ml Vial ID 07/08/24 10:01 X1 ONE Venlafaxine HCl 37.5 mg 07/01/24 10:00 07/01/24 08:54 Venlafaxine Xr 37.5 Mg Capsule PO 37.5 mg DAILY FOREIGN Administration Problem List Major depression (Acute) BPPV (benign paroxysmal positional vertigo) (Acute) Iron deficiency anemia (Acute) Rash (Acute) Anxiety (Acute) Hyperlipidemia, unspecified (Acute) DVT (deep venous thrombosis) (Acute) Essential (primary) hypertension (Acute) Debility (Acute) 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 (Acute) Vital Signs Temp Pulse Resp BP Pulse Ox O2 Del Method 99 F 100 16 125/72 H 93 Room Air 07/01/24 08:52 07/01/24 08:52 07/01/24 08:52 07/01/24 08:52 07/01/24 08:52 07/01/24 08:52 Oxygen Delivery Method Room Air Weight: 79.52 kg Body Mass Index (BMI) 32.1 Sodium 138 mmol/L (133-145) 07/01/24 05:00 Potassium 3.1 mmol/L (3.3-5.1) L 07/01/24 05:00 Chloride 101 mmol/L (98-108) 07/01/24 05:00 Carbon Dioxide 28.5 mmol/L (21.0-32.0) 07/01/24 05:00 Anion Gap 9 (5-15) 07/01/24 05:00 BUN 11 mg/dL (4-19) 07/01/24 05:00 Creatinine 0.44 mg/dL (0.70-1.20) L 07/01/24 05:00 Est GFR (MDRD) Non-Af 98 (>60) 07/01/24 05:00 BUN/Creatinine Ratio 24.0 RATIO (10-20) H 07/01/24 05:00 Glucose 134 mg/dL (70-99) H 07/01/24 05:00 Assessment/Plan: 1. Pain: Tylenol 1000mg PO Q6h PRN pain 1-10. Please continue to monitor for increased/decreased S/S pain, LFT with prolonged use (labs WNL 02/2024), PRN medication usage. - To date, the patient received 1 dose of Tylenol for pain rated 2/10 (post- admin pain rated 0/10).Patient's pain appears managed at this time. 2. History of DVT: Eliquis 2.5mg PO BID. Please continue to monitor S/S bleeding/bruising, H/H (hgb10.6/ hct 32.3 on 07/01), platelets (385 on 07/01). The patient is currently taking this medication forhistory of a DVT, which does notqualify for Eliquis dose reduction. The recommended dose of Eliquisfor DVT treatment/ prevention of recurrence is 5mg PO BID. Please consider changing doseif clinically indicated, thank you. 3. HTN: Amlodipine 5mg PO Daily. Please continue to monitor blood pressure (maxs888/72), swelling of the lower extremities, flushing. 4. HLD: Lipitor 40mg PO QHS. Please continue to monitor for muscles cramping/pain, lipid panel annually or sooner if clinically indicated (none on file per EMR review). 5. BPPV: Meclizine 25mg PO BID PRN vertigo. Please continue to monitor for PRN medication usage andeffectiveness. This is a BEERs criteria medication which can cause an increased risk of anticholinergic properties in patients >65 years of age. Please monitor patient carefully for side effects of medication and evaluate risk v. benefit of use should severe side effects occur. - The patient has not required any PRN doses of medication since admission. 6. Hypokalemia: K-Dur 20mEq PO Daily. Please continue to monitor potassium levels (last 3.1mmol/L on 07/01), GI upset, N/V. 7. Iron Deficiency anemia: Ferrous sulfate 650mg PO Daily. Please continue to monitor iron studies as clinically indicated, H/H, nausea/vomiting/stomach upset, constipation. 8. Rash: Clobetasol cream topically BID. Please continue to monitor for resolution of rash, skin irritation. 9. Skin Integrity: Calmoseptine topically BID, Nystatin topically BID. Please continue to monitor for skin irritation, redness, ulcer/wound formation. 10. Bowel: Senna/Docusate 1 tab PO BID, Magnesium citrate 300mL PO daily PRN. Please continue to monitor for increased/decreased constipation and/or diarrhea,PRN medication use. Please discontinue scheduled medications should diarrhea develop. - To date, the patient has not had a documented BM (admission <24hr ago). Please consider givingPRN medication if no documented BM in 48-72hrs. Assessment/Plan for indications treated with psychotropic medications: 1. Depression: Effexor XR 37.5mg PO Daily. Monitor for diarrhea, nausea, appetite/weight loss, anxiety or drowsiness, suicidal thoughts or behaviors (Boxed Warning), symptoms of bleeding, symptoms ofserotonin syndrome (including agitation, confusion, hyperreflexia, rigidity/myoclonus, tremor, tachycardia, tachypnea), sodium levels (Na =138 on 07/01). Monitor blood pressure. BP range since admission = 107-125/66-72 Monitor for orthostatic hypotension, including postural dizziness, syncope or falls. Check orthostatic vital signs if suspicion of orthostasis. Monitor for hepatotoxicity (abdominal pain, nausea, jaundice, dark urine, AST/ALT as clinically indicated). AST/ALT WNL 02/2024. Monitor for efficacy including resident symptoms, behaviors and indications of distress. Monitor for tolerability including mental status, cognition, excessivesleepiness, withdrawal or decreased participation in activities and decline in physical functioning. Maximize use of nonpharmacologic/behavioral interventions to facilitate dose reduction or discontinuation as appropriate. Please evaluate the appropriateness of GDR unless contraindicated. If appropriate, GDR should be attempted in 2 separate quarters within the first year of use or admission to TCU. If GDR attempted, monitor resident symptoms/behaviors. 2. Anxiety: Librium 10mg PO Q12h PRN Anxiety. Monitor for sedation, mental status and cognition. Monitor for falls (risk factor for falls) and implement fall prevention strategies. Monitor for respiratory depression. RR range since admission = 16-18/ min. Monitor for tolerability including mental status, cognition, excessive sleepiness, withdrawal or decreased participation in activities and decline in physical functioning. Monitor prn usage and efficacy of prn doses including resident symptoms, behaviors and indications of distress. Maximize use of nonpharmacologic/behavior interventions to minimize use of prn medication. Prn psychotropic order must be renewed at 14 days per policy. Evaluate continued need for medication, effectof prn medication on resident?s symptoms/distress and tolerability to determine the appropriatenessof order renewal. Medical chart and medication regimen reviewed. The following medication irregularities or issues were identified: 1. DVT: Eliquis 2.5mg PO BID. The patient is currently taking this medication for history of a DVT, which does not qualify for Eliquis dose reduction. The recommended dose of Eliquis for DVT treatment/ prevention of recurrence is 5mg PO BID. Please consider changing dose if clinically indicated, thank you. 2. HLD: Lipitor 40mg PO QHS. No lipid panel on file per EMR review. if clinically indicated, please consider obtaining a lipid panel, thank you. Date Date of Note: 07/01/24 Documented by User: Dr. Silvestre Garcia MD 07/01/24 14:14 TCU RX Drug Regimen Review Provider Comments Provider responsibility Provider Comments to Recommendations by Pharmacy Agree 07/01/24 1215 Chanda Abbott Signature (if applicable): 07/01/24 1414 CC: ~ Signed [facility]05-07-2025 [facility] [place]05-03-2025 Hospital Discharge instructions Patient Education 06/26/2024 16:00:06 Nasal Contusion Nasal Contusion Your nose has bruising (contusion). You don t appear to have any broken bones. A contusion may cause pain, swelling, and stuffiness of the nose. You may also have bleeding. Home care To ease pain and swelling, wrap a bag of ice, cold pack, or frozen peas in a thin towel. Place the cold source on your nose for 10 minutes at a time. Do this every 2 hours during the first 24 hours. Then continue 4 times a day for the next 2 days. Take pain medicines as directed. Talk with your healthcare provider before taking ibuprofen to helpcontrol pain. Tell the healthcare provider if you are taking aspirin or blood thinners. Don't blow your nose for the first 2 days. After this, blow your nose gently. This helps prevent new bleeding. Don t drink alcohol or hot liquids for the next 2 days. These can dilate blood vessels in your noseand cause bleeding. Sleep with your head elevated for a couple of days until the swelling and pain being to lessen. Don't do any activity that could result in another head injury until you are given the OK to do so. Note about concussion Because the injury was to your head, it is possible that you could have a concussion (mild brain injury). Symptoms of concussion can show up later. For this reason, be alert for signs and symptoms ofa concussion. Seek emergency medical care if any of these develop over the next hours to days: Headache Nausea or vomiting Dizziness Sensitivity to light or noise Unusual sleepiness or grogginess Trouble falling asleep Personality changes Vision changes Memory loss Confusion Trouble walking or clumsiness Loss of consciousness (even for a short time) Inability to be awakened Follow-up care Follow up with your healthcare provider, or as advised. If you have been referred to a specialist, make an appointment within 3-5 days of the injury. When to seek medical advice Call your healthcare provider right away if any of these occur: Bleeding from your nose that won't stop Your nose looks crooked You cannot breathe through 1 or both sides of your nose Facial swelling, pain, or redness that gets worse Fever of 100.4 F (38 C) Pus or clear discharge from your nose Skin on the nose is split open or has a gap Sinus pain [id number] [employer]. [address] [place] [address]. All rights reserved. This information is not intended as a substitute for professional medical care. Always follow yourhealthcare professional's instructions. 06/26/2024 16:00:03 Head Injury (Adult) Head Injury (Adult) You have a head injury. It does not appear serious at this time. But symptoms of a more serious problem, such as a mild brain injury (concussion) or bruising or bleeding in the brain, may appear later. For this reason, you or someone caring for you will need to watch for the symptoms listed below. Once you re home, also be sure to follow any care instructions you re given. Home care Watch for the following symptoms Seek emergency medical care if you have any of these symptoms over the next hours to days: Headache Nausea or vomiting Dizziness Sensitivity to light or noise Unusual sleepiness or grogginess Trouble falling asleep Personality changes Vision changes Memory loss Confusion Trouble walking or clumsiness Loss of consciousness (even for a short time) Inability to be awakened Stiff neck Weakness or numbness in any part of the body Seizures General care If you were prescribed medicines for pain, use them as directed. Note: Don t take other medicines for pain without talking to your provider first. To help reduce swelling and pain, apply a cold source to the injured area for up to 20 minutes at atime. Do this as often as directed. Use a cold pack or bag of ice wrapped in a thin towel. Never apply a cold source directly to the skin. If you have cuts or scrapes as a result of your head injury, care for them as directed. For the next 24 hours (or longer, if instructed): oDon t drink alcohol or use sedatives or other medicines that make you sleepy. oDon t drive or operate machinery. oDon t do anything strenuous, such as heavy lifting or straining. oLimit tasks that require concentration. This includes reading, using a smartphone or computer, watching TV, and playing video games. oDon t return to sports or other activities that could result in another head injury. Follow-up care Follow up with your healthcare provider, or as directed. If imaging tests were done, they will be reviewed by a doctor. You will be told the results and any new findings that may affect your care. When to seek medical advice Call your healthcare provider right away if any of these occur: Pain doesn t get better or worsens New or increased swelling or bruising Fever of 100.4 F (38 C) or higher, or as directed by your provider Increased redness, warmth, drainage, or bleeding from the injured area Fluid drainage or bleeding from the nose or ears Any depression or bony abnormality in the injured area Persistent confusion or lethargy Bruising behind the ears or bruising around the eyes [id number] [employer] [address] [place] [address], [place] [address]. All rights reserved. This information is not intended as a substitute for professional medical care. Always follow yourhealthcare professional's instructions. 06/26/2024 15:59:55 Abrasions Abrasions Abrasions are skin scrapes. Their treatment depends on how large and deep the abrasion is. Home care You may be prescribed an antibiotic cream or ointment to apply to the wound. This helps prevent infection. Follow instructions when using this medicine. General care To care for the abrasion, do the following each day for as long as directed by your healthcare provider. oIf you were given a bandage, change it once a day. If your bandage sticks to the wound, soak it inwarm water until it loosens. oWash the area with soap and warm water. You may do this in a sink or under a tub faucet or shower.Rinse off the soap. Then pat the area dry with a clean towel. oIf antibiotic ointment or cream was prescribed, reapply it to the wound as directed. Cover the wound with a fresh nonstick bandage. If the bandage becomes wet or dirty, change it as soon as possible. oSome antibiotic ointments or cream can cause an allergic reaction or dermatitis. This may cause redness, itching and or hives. If this occurs, stop using the ointment immediately and wash off any remaining ointment. You may need to take some allergy medicine to relieve symptoms. You may use acetaminophen or ibuprofen to control pain unless another pain medicine was prescribed.Talk with your healthcare provider before using these medicines if you have chronic liver or kidneydisease or ever had a stomach ulcer or GI bleeding. Don t use ibuprofen in children younger than six months old. Most skin wounds heal within 10 days. But an infection may occur even with treatment. So it s important to watch the wound for signs of infection as listed below. Follow-up care Follow up with your healthcare provider, or as advised. When to seek medical advice Call your healthcare provider right away if any of these occur: Fever of 100.4 F (38 C) or higher, or as directed by your healthcare provider Increasing pain, redness, swelling, or drainage from the wound Bleeding from the wound that does not stop after a few minutes of steady, firm pressure Decreased ability to move any body part near the wound [phone] [employer] [address] [place] [address], [place] [address]. All rights reserved. This information is not intended as a substitute for professional medical care. Always follow yourhealthcare professional's instructions. 06/26/2024 15:59:52 Nosebleed Nosebleed The skin inside your nose is fragile and filled with blood vessels. That's why even a slight injuryto your nose sometimes may cause bleeding. Hard nose blowing, dry winter air, colds, and nose-picking can also cause nosebleeds. Medicines such as warfarin, aspirin, and other blood thinners can makeit more likely to have a nosebleed that is difficult to stop. Normally, nosebleeds aren't a cause for concern. But in some cases, they can mean that you have a more serious health problem. Know when to seek medical care for a nosebleed. When to go to the emergency room (ER) Most nosebleeds aren t a medical emergency. In fact, you often can treat them yourself. But see your healthcare provider if you have nosebleeds often. And seek care right away if you: Have a head injury Have bleeding that lasts more than 15 to 30 minutes or is severe Feel weak or faint Have trouble breathing What to expect in the ER You will be examined and may have blood tests. You may be given medicated nose drops to stop the nosebleed. The doctor may pack gauze into your nose to put pressure on the vessel and help stop bleeding. The bleeding vessel may be cauterized. During this procedure, the vessel is burned with an electrical device or chemical. Your nose is first numbed so you won t feel any pain. In rare cases, you may need surgery to control the bleeding. Home care for a nosebleed Don't blow your nose for 12 hours after the bleeding stops. This will allow a strong blood clot to form. Don't pick your nose. This may restart bleeding. Don't drink alcohol or hot liquids for the next 2 days. Alcohol and hot liquids can dilate blood vessels in your nose. This can cause bleeding to start again. Don't take ibuprofen, naproxen, or medicines that contain aspirin. These thin the blood and may cause your nose to bleed. You may take acetaminophen for pain, unless another pain medicine was prescribed. If the bleeding starts again, sit up and lean forward to prevent swallowing blood. Pinch your nose tightly on both sides for 10 to 15 minutes. Time yourself. Don t release the pressure on your nose until 10 minutes is up. If bleeding doesn't stop, continue to pinch your nose. Call your healthcare pr ovider. If you have a cold, allergies, or dry nasal membranes, lubricate the nasal passages. Apply a small amount of petroleum jelly inside the nose with a cotton swab twice a day (morning and night). Don't overheat your home. This can dry the air and make your condition worse. Put a humidifier in the room where you sleep. This will add moisture to the air. Use a saline nasal spray to keep nasal passages moist. Don't pick your nose. Keep fingernails trimmed to decrease risk of bleeds. Don't smoke. Follow all other home care instructions from your healthcare provider. Call your healthcare provider if you have any questions or concerns. [phone] [employer] [address] [place] [address], [place] [address]. All rights reserved. This information is not intended as a substitute for professional medical care. Always follow yourhealthcare professional's instructions. 06/26/2024 15:59:45 Fall, Mechanical Mechanical Fall You have had a fall today. It appears that the cause is what is called mechanical. That means that you slipped, tripped, or lost your balance. If your fall had been because of fainting or a seizure, you might need other tests. It is normal to feel sore and tight in your muscles and back the next day, and not just the musclesyou injured at first. Remember, all the parts of your body are connected, so while initially one area hurts, the next day another may hurt. Also, when you injure yourself, it causes inflammation, which then causes the muscles to tighten up and hurt more. After the initial worsening, it should gradually improve over the next few days. Do report more severe pain. Even without a definite head injury, you can still get a concussion from your head suddenly jerkingforward, backward, or sideways when falling. Concussions and even bleeding can still happen, especially if you have had a recent injury or take blood thinner medicine. It is not unusual to have a mild headache and feel tired and even nauseous or dizzy. Home care Rest today and go back to your normal activities when you are feeling back to normal. If you were injured during the fall, follow the advice from your healthcare provider regarding careof your injury. At first, do not try to stretch out the sore spots. If there is a strain, stretching may make it worse. Massage may help relax the muscles without stretching them. You can use an ice pack or cold compress on and off to the sore spots 10 to 20 minutes at a time, as often as you feel comfortable. This may help reduce the inflammation, swelling and pain. If you have any scrapes or abrasions, they usually heal within 10 days. It is important to keep theabrasions clean while they initially start to heal. However, an infection may happen even with proper care, so watch for early signs of infection (such as warmth, redness, or swelling). Medicines Talk to your healthcare provider before taking new medicines, especially if you have other medical problems or are taking other medicines. If you need anything for pain, you can take acetaminophen or ibuprofen, unless you were given a different pain medicine to use. Talk with your healthcare provider before using these medicines if you have chronic liver or kidney disease, or ever had a stomach ulcer or gastrointestinal bleeding, or are taking blood thinner medicines. Be careful if you are given prescription pain medicines, narcotics, or medicine for muscle spasm. They can make you sleepy and dizzy, and can affect your coordination, reflexes, and judgment. Do not drive or do work where you can injure yourself when taking them. Fall prevention Fix, remove, or replace anything that caused your fall. Make your home safe by keeping walkways clear of objects you may trip over. Use nonslip pads under rugs. Don't use small area rugs or throw rugs. Don't walk in poorly lit areas. Don't stand on chairs or wobbly ladders. Use caution when reaching overhead or looking upward. This position can cause a loss of balance. Be sure your shoes fit properly, have nonslip bottoms and are in good condition. Be cautious when going up and down curbs, and walking on uneven sidewalks. If your balance is poor, consider using a cane or walker. Stay as active as you can. Balance, flexibility, strength, and endurance all come from exercise. They all play a role in preventing falls. If you have pets, know where they are before you stand up or walk so you don't trip over them. Limit alcohol intake. Alcohol can cause balance problems and increase the risk of falls. Use night lights. Have your eyes tested to be sure you are seeing well, even if you already wear glasses. Follow-up Follow up with your healthcare provider, or as advised. If X-rays or CT scans were done, you will be notified if there is a change in the reading, especially if it affects treatment. Call 911 Call 911 if any of these happen: Trouble breathing Confused or difficulty arousing Fainting or loss of consciousness Rapid or very slow heart rate Seizure Difficulty with speech or vision, weakness of an arm or leg Difficulty walking or talking, loss of balance, numbness or weakness in one side of your body, or facial droop When to seek medical advice Call your healthcare provider right away if any of these happen: Repeated mechanical falls, or unexplained falls Dizziness Severe headache Blood in vomit, stools (black or red color) [phone] [employer] [address] [place] [address], [place] [address]. All rights reserved. This information is not intended as a substitute for professional medical care. Always follow yourhealthcare professional's instructions. Follow Up Care 06/26/2024 12:56:34 With:COLE CARDONA DO Address: [facility] [address] [address]- [phone] When:2-4 days [facility] 05-03-2025 Emergency department Discharge summary Discharge Instructions Thank you for allowing [facility] to assist you with your healthcare needs. The following is importantdischarge information regarding your hospital visit. Diagnosis from Today's Visit Facial abrasion Head injury Nasal contusion What to Do Next Instructions from Your Care Team Motrin Tylenol as needed. The Dermabond should wash off in about a week or so. Return for headache,vomiting, weakness or numbness, or if you are worse in any way. See your physician in 2 to 3 days. No qualifying data available. Post Acute Orders No qualifying data available. You Need to Schedule the Following Appointments Follow Up with COLE CARDONA DO When:Within 2-4 days Where:[facility] [address] [place] [address] [place] [phone] [phone] Allergies Benadryl Itching predniSONE Rash Immunizations This Visit Given Vaccine Datetetanus/diphth/pertuss (Tdap) adult/adol 06/26/2024 Medications Please ask your primary doctor or pharmacist before taking any other medication not listed, including over the counter drugs, herbal medications, vitamins and or supplements as they may interact withyour home medications. What How Much When Instructions Last Dose Unchanged amLODIPine (amLODIPine 5 mg oral tablet) 1 tab(s) by mouth Once a day (in the morning) Unchanged apixaban (Eliquis 2.5 mg oral tablet) 1 tab(s) by mouth Two (2) times a day Unchanged atorvastatin (atorvastatin 40 mg oral tablet) 1 tab(s) by mouth Once a day (in the morning) Unchanged betamethasone topical (betamethasone dipropionate 0.05% topical cream) 1 application Topical Once a day Unchanged ferrous sulfate (ferrous sulfate 325 mg (65 mg elemental iron) oral delayed release tablet) 1 tab(s) by mouth Two (2) times a day Unchanged meclizine (meclizine 25 mg oral tablet) 1 tab(s) by mouth Three (3) times a day as needed for as needed for dizziness pt takes daily in AM Unchanged venlafaxine (venlafaxine 37.5 mg oral tablet) 1 tab(s) by mouth Once a day (in the morning) Please take this list to your next doctor s visit. Bring all medications you take, including over the counter medications, herbals and other supplements with you to your doctor s visit. Patients and families are reminded to discard old lists and to update any records with all medication providers or retail pharmacies. Education Materials Nasal Contusion Your nose has bruising (contusion). You don t appear to have any broken bones. A contusion may cause pain, swelling, and stuffiness of the nose. You may also have bleeding. Home care To ease pain and swelling, wrap a bag of ice, cold pack, or frozen peas in a thin towel. Place the cold source on your nose for 10 minutes at a time. Do this every 2 hours during the first 24 hours. Then continue 4 times a day for the next 2 days. Take pain medicines as directed. Talk with your healthcare provider before taking ibuprofen to helpcontrol pain. Tell the healthcare provider if you are taking aspirin or blood thinners. Don't blow your nose for the first 2 days. After this, blow your nose gently. This helps prevent new bleeding. Don t drink alcohol or hot liquids for the next 2 days. These can dilate blood vessels in your noseand cause bleeding. Sleep with your head elevated for a couple of days until the swelling and pain being to lessen. Don't do any activity that could result in another head injury until you are given the OK to do so. Note about concussion Because the injury was to your head, it is possible that you could have a concussion (mild brain injury). Symptoms of concussion can show up later. For this reason, be alert for signs and symptoms ofa concussion. Seek emergency medical care if any of these develop over the next hours to days: Headache Nausea or vomiting Dizziness Sensitivity to light or noise Unusual sleepiness or grogginess Trouble falling asleep Personality changes Vision changes Memory loss Confusion Trouble walking or clumsiness Loss of consciousness (even for a short time) Inability to be awakened Follow-up care Follow up with your healthcare provider, or as advised. If you have been referred to a specialist, make an appointment within 3-5 days of the injury. When to seek medical advice Call your healthcare provider right away if any of these occur: Bleeding from your nose that won't stop Your nose looks crooked You cannot breathe through 1 or both sides of your nose Facial swelling, pain, or redness that gets worse Fever of 100.4 F (38 C) Pus or clear discharge from your nose Skin on the nose is split open or has a gap Sinus pain [id number] [employer]. [address] [place] [address], [place] [address]. All rights reserved. This information is not intended as a substitute for professional medical care. Always follow yourhealthcare professional's instructions. Head Injury (Adult) You have a head injury. It does not appear serious at this time. But symptoms of a more serious problem, such as a mild brain injury (concussion) or bruising or bleeding in the brain, may appear later. For this reason, you or someone caring for you will need to watch for the symptoms listed below. Once you re home, also be sure to follow any care instructions you re given. Home care Watch for the following symptoms Seek emergency medical care if you have any of these symptoms over the next hours to days: Headache Nausea or vomiting Dizziness Sensitivity to light or noise Unusual sleepiness or grogginess Trouble falling asleep Personality changes Vision changes Memory loss Confusion Trouble walking or clumsiness Loss of consciousness (even for a short time) Inability to be awakened Stiff neck Weakness or numbness in any part of the body Seizures General care If you were prescribed medicines for pain, use them as directed. Note: Don t take other medicines for pain without talking to your provider first. To help reduce swelling and pain, apply a cold source to the injured area for up to 20 minutes at atime. Do this as often as directed. Use a cold pack or bag of ice wrapped in a thin towel. Never apply a cold source directly to the skin. If you have cuts or scrapes as a result of your head injury, care for them as directed. For the next 24 hours (or longer, if instructed): oDon t drink alcohol or use sedatives or other medicines that make you sleepy. oDon t drive or operate machinery. oDon t do anything strenuous, such as heavy lifting or straining. oLimit tasks that require concentration. This includes reading, using a smartphone or computer, watching TV, and playing video games. oDon t return to sports or other activities that could result in another head injury. Follow-up care Follow up with your healthcare provider, or as directed. If imaging tests were done, they will be reviewed by a doctor. You will be told the results and any new findings that may affect your care. When to seek medical advice Call your healthcare provider right away if any of these occur: Pain doesn t get better or worsens New or increased swelling or bruising Fever of 100.4 F (38 C) or higher, or as directed by your provider Increased redness, warmth, drainage, or bleeding from the injured area Fluid drainage or bleeding from the nose or ears Any depression or bony abnormality in the injured area Persistent confusion or lethargy Bruising behind the ears or bruising around the eyes [phone] [employer]. [address] [place] [address]. All rights reserved. This information is not intended as a substitute for professional medical care. Always follow yourhealthcare professional's instructions. Abrasions Abrasions are skin scrapes. Their treatment depends on how large and deep the abrasion is. Home care You may be prescribed an antibiotic cream or ointment to apply to the wound. This helps prevent infection. Follow instructions when using this medicine. General care To care for the abrasion, do the following each day for as long as directed by your healthcare provider. oIf you were given a bandage, change it once a day. If your bandage sticks to the wound, soak it inwarm water until it loosens. oWash the area with soap and warm water. You may do this in a sink or under a tub faucet or shower.Rinse off the soap. Then pat the area dry with a clean towel. oIf antibiotic ointment or cream was prescribed, reapply it to the wound as directed. Cover the wound with a fresh nonstick bandage. If the bandage becomes wet or dirty, change it as soon as possible. oSome antibiotic ointments or cream can cause an allergic reaction or dermatitis. This may cause redness, itching and or hives. If this occurs, stop using the ointment immediately and wash off any remaining ointment. You may need to take some allergy medicine to relieve symptoms. You may use acetaminophen or ibuprofen to control pain unless another pain medicine was prescribed.Talk with your healthcare provider before using these medicines if you have chronic liver or kidneydisease or ever had a stomach ulcer or GI bleeding. Don t use ibuprofen in children younger than six months old. Most skin wounds heal within 10 days. But an infection may occur even with treatment. So it s important to watch the wound for signs of infection as listed below. Follow-up care Follow up with your healthcare provider, or as advised. When to seek medical advice Call your healthcare provider right away if any of these occur: Fever of 100.4 F (38 C) or higher, or as directed by your healthcare provider Increasing pain, redness, swelling, or drainage from the wound Bleeding from the wound that does not stop after a few minutes of steady, firm pressure Decreased ability to move any body part near the wound [phone] [employer]. [address] [place] [address]. All rights reserved. This information is not intended as a substitute for professional medical care. Always follow yourhealthcare professional's instructions. Nosebleed The skin inside your nose is fragile and filled with blood vessels. That's why even a slight injuryto your nose sometimes may cause bleeding. Hard nose blowing, dry winter air, colds, and nose-picking can also cause nosebleeds. Medicines such as warfarin, aspirin, and other blood thinners can makeit more likely to have a nosebleed that is difficult to stop. Normally, nosebleeds aren't a cause for concern. But in some cases, they can mean that you have a more serious health problem. Know when to seek medical care for a nosebleed. When to go to the emergency room (ER) Most nosebleeds aren t a medical emergency. In fact, you often can treat them yourself. But see your healthcare provider if you have nosebleeds often. And seek care right away if you: Have a head injury Have bleeding that lasts more than 15 to 30 minutes or is severe Feel weak or faint Have trouble breathing What to expect in the ER You will be examined and may have blood tests. You may be given medicated nose drops to stop the nosebleed. The doctor may pack gauze into your nose to put pressure on the vessel and help stop bleeding. The bleeding vessel may be cauterized. During this procedure, the vessel is burned with an electrical device or chemical. Your nose is first numbed so you won t feel any pain. In rare cases, you may need surgery to control the bleeding. Home care for a nosebleed Don't blow your nose for 12 hours after the bleeding stops. This will allow a strong blood clot to form. Don't pick your nose. This may restart bleeding. Don't drink alcohol or hot liquids for the next 2 days. Alcohol and hot liquids can dilate blood vessels in your nose. This can cause bleeding to start again. Don't take ibuprofen, naproxen, or medicines that contain aspirin. These thin the blood and may cause your nose to bleed. You may take acetaminophen for pain, unless another pain medicine was prescribed. If the bleeding starts again, sit up and lean forward to prevent swallowing blood. Pinch your nose tightly on both sides for 10 to 15 minutes. Time yourself. Don t release the pressure on your nose until 10 minutes is up. If bleeding doesn't stop, continue to pinch your nose. Call your healthcare pr ovider. If you have a cold, allergies, or dry nasal membranes, lubricate the nasal passages. Apply a small amount of petroleum jelly inside the nose with a cotton swab twice a day (morning and night). Don't overheat your home. This can dry the air and make your condition worse. Put a humidifier in the room where you sleep. This will add moisture to the air. Use a saline nasal spray to keep nasal passages moist. Don't pick your nose. Keep fingernails trimmed to decrease risk of bleeds. Don't smoke. Follow all other home care instructions from your healthcare provider. Call your healthcare provider if you have any questions or concerns. [phone] [employer]. [address] [place] [address]. All rights reserved. This information is not intended as a substitute for professional medical care. Always follow yourhealthcare professional's instructions. Mechanical Fall You have had a fall today. It appears that the cause is what is called mechanical. That means that you slipped, tripped, or lost your balance. If your fall had been because of fainting or a seizure, you might need other tests. It is normal to feel sore and tight in your muscles and back the next day, and not just the musclesyou injured at first. Remember, all the parts of your body are connected, so while initially one area hurts, the next day another may hurt. Also, when you injure yourself, it causes inflammation, which then causes the muscles to tighten up and hurt more. After the initial worsening, it should gradually improve over the next few days. Do report more severe pain. Even without a definite head injury, you can still get a concussion from your head suddenly jerkingforward, backward, or sideways when falling. Concussions and even bleeding can still happen, especially if you have had a recent injury or take blood thinner medicine. It is not unusual to have a mild headache and feel tired and even nauseous or dizzy. Home care Rest today and go back to your normal activities when you are feeling back to normal. If you were injured during the fall, follow the advice from your healthcare provider regarding careof your injury. At first, do not try to stretch out the sore spots. If there is a strain, stretching may make it worse. Massage may help relax the muscles without stretching them. You can use an ice pack or cold compress on and off to the sore spots 10 to 20 minutes at a time, as often as you feel comfortable. This may help reduce the inflammation, swelling and pain. If you have any scrapes or abrasions, they usually heal within 10 days. It is important to keep theabrasions clean while they initially start to heal. However, an infection may happen even with proper care, so watch for early signs of infection (such as warmth, redness, or swelling). Medicines Talk to your healthcare provider before taking new medicines, especially if you have other medical problems or are taking other medicines. If you need anything for pain, you can take acetaminophen or ibuprofen, unless you were given a different pain medicine to use. Talk with your healthcare provider before using these medicines if you have chronic liver or kidney disease, or ever had a stomach ulcer or gastrointestinal bleeding, or are taking blood thinner medicines. Be careful if you are given prescription pain medicines, narcotics, or medicine for muscle spasm. They can make you sleepy and dizzy, and can affect your coordination, reflexes, and judgment. Do not drive or do work where you can injure yourself when taking them. Fall prevention Fix, remove, or replace anything that caused your fall. Make your home safe by keeping walkways clear of objects you may trip over. Use nonslip pads under rugs. Don't use small area rugs or throw rugs. Don't walk in poorly lit areas. Don't stand on chairs or wobbly ladders. Use caution when reaching overhead or looking upward. This position can cause a loss of balance. Be sure your shoes fit properly, have nonslip bottoms and are in good condition. Be cautious when going up and down curbs, and walking on uneven sidewalks. If your balance is poor, consider using a cane or walker. Stay as active as you can. Balance, flexibility, strength, and endurance all come from exercise. They all play a role in preventing falls. If you have pets, know where they are before you stand up or walk so you don't trip over them. Limit alcohol intake. Alcohol can cause balance problems and increase the risk of falls. Use night lights. Have your eyes tested to be sure you are seeing well, even if you already wear glasses. Follow-up Follow up with your healthcare provider, or as advised. If X-rays or CT scans were done, you will be notified if there is a change in the reading, especially if it affects treatment. Call 911 Call 911 if any of these happen: Trouble breathing Confused or difficulty arousing Fainting or loss of consciousness Rapid or very slow heart rate Seizure Difficulty with speech or vision, weakness of an arm or leg Difficulty walking or talking, loss of balance, numbness or weakness in one side of your body, or facial droop When to seek medical advice Call your healthcare provider right away if any of these happen: Repeated mechanical falls, or unexplained falls Dizziness Severe headache Blood in vomit, stools (black or red color) [phone] [employer]. [address] [place] [address]. All rights reserved. This information is not intended as a substitute for professional medical care. Always follow yourhealthcare professional's instructions. Additional Information VACCINATE! IT SAVES LIVES! Members of the community who have not yet received the COVID-19 vaccine and would like to receive it can visit one of [facility] vaccine clinics. There are many vaccine clinic locations within the [facility]. For locations and available times, please visit www.[email or web address].[place].gov/. It is important to note that some COVID mobile vaccine clinics are held outdoors and may be canceled in rainy or stormy conditions. To learn more about pediatric vaccinations (ages 5-11), we invite you to visit the [facility] webpage. [email or web address]/[email or web address] [email or web address] learn more about the COVID-19 vaccine, we invite you to visit the CDC website for a list of frequently asked questions. https://www.cdc.gov/coronavirus/2019-ncov/vaccines/faq.html [facility] Patient Portal Access Instructions: Stay connected with your healthcare team and access your personal medical information anytime with the [facility] Patient Portal. If you would like a full copy of your medical records please contact the [facility] Medical Records Department Friday through Friday between 8a.m. and 4:30p.m. Please follow the directions below to access the portal: 1.Access the email account you provided upon registration to the hospital.2.Look for an invitation email from [facility].3.Open the email and access the invitation link: Accept Invitation to [facility].Fill in the required davidson to create your account. Sign into [email or web address] with your username and password that you created in the above steps to stay up to date. You can then view a summary of results, a summary of your visits, and the ability to download your summaries to your computer or send the information securely to a physician. Remember that your healthcare information is confidential, so carefully consider who you will allow to register on the [facility] Portal for access to your information. You can also access the [facility] Patient Portal on the [employer] melania. Simply click on Health Records under [employer] and then click on the [employer] logo. HOW TO SAFELY DISPOSE OF PRESCRIPTION MEDICATIONS Please use one of the following methods to safely dispose of your unused medications. 1.Use a drug disposal kit: the drug disposal pouch allows you to safely discard your old and unuseddrugs. Ask your nurse to give you one when you are discharged.2.Visit a local take-back location: Many local pharmacies and police departments have programs that collect old and unwanted prescriptiondrugs. Call your local pharmacy or go to http://W.[employer]/1J7Ro8z to find one close to you.3.Make use of household items: Use cat litter or old coffee grounds to dispose medications if other options arenot available. Mix your drugs with these household products, seal them in an airtight container andthrow it into the garbage. Call [facility]: [phone] to be sure your drugs can be disposed of in this way. Some medicines may require a different approach.4.Never flush your medications down the toilet. IF YOU HAVE BEEN PRESCRIBED AN OPIOIDS FOR PAIN If you have been prescribed an opioid (such as hydrocodone, oxycodone or morphine), it is critical to understand the possible side effects and risks of opioid pain medications. Even when taken as directed, opioids can have several side effects including: Tolerance, meaning you might need to take more of a medication for the same pain relief. Nausea, vomiting and/or constipation. Sleepiness, dizziness, dry mouth, confusion, depression or itching. Physical dependence, meaning you have withdrawal symptoms when a medication is stopped ? this can develop within a few days. KNOW YOUR RESPONSIBILITIES It is important to know exactly how much and how often to take the opioid pain medications you are prescribed. Never take opioids in higher amounts or more often than prescribed. Do not combine opioids with alcohol or other drugs that cause drowsiness, such as benzodiazepines, also known as benzos,including diazepam and alprazolam, muscle relaxants or sleep aids. Never sell or share prescriptionopioids. This is illegal. Store opioids in a secure place and out of reach of others (including children, family, friends and visitors). The last page(s) of this document has been signed and retained as a CHART COPY Signatures Patient Education Materials Nasal Contusion Head Injury (Adult) Abrasions Nosebleed Fall, Mechanical Medication Leaflets My discharge plan and instructions have been reviewed and explained to me and I,SCOTT TALBERT understand my current condition and have read and understand these discharge instructions. I have received a written copy of the plan/instructions. If I have questions, I am aware that I should contact my doctor. 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 Multiplanar reformatted images are provided for review. Automated exposure control, iterative reconstruction, and/or weight based adjustment of the mA/kV was utilized to reduce the radiation dose to as low as reasonably achievable. COMPARISON: None HISTORY: ORDERING SYSTEM PROVIDED HISTORY: Reason for Exam: FALL ON ELIQUIS TODAY, -LOC, LAC TO BRIDGE OF NOSE, NO PRIOR NEURO HX INJURY FINDINGS: FACIAL BONES: The frontal sinuses, orbital agudelo, maxilla, pterygoid plates, zygomatic arches, hard palate, nasal bones and mandible are intact. The temporomandibular joints are aligned. ORBITAL CONTENTS: The globes appear intact. The extraocular muscles, optic nerve sheath complexes and lacrimal glands appear unremarkable. No retrobulbar hematoma or mass is seen. SINUSES: There is no evidence of acute sinusitis, such as air fluid level. The mastoid air cells are clear. SOFT TISSUES: No superficial facial soft tissue swelling is seen. IMPRESSION: No acute facial bone trauma. No displaced nasal bone fracture. Head CT reported separately Interpreted by: Ellis White MD Preliminary Report By: Ellis White MD Electronically signed By Ellis White MD Dictated Date: 06/26/2024 3:19:47 PM Prelim Date: 06/26/2024 3:23:38 PM Sign Date: 06/26/2024 3:23:38 PM Ordering Provider: [facility]05-03-2025 Note* Exam Date Time Procedure Performing Provider Status 06/26/24 2:[address] Head or Brain w/o Contrast ELLIS WHITE MD; Auth (Verified) [id number] ORIGINAL EXAMINATION: CT OF THE HEAD WITHOUT CONTRAST 06/26/2024 2:54 pm TECHNIQUE: CT of the head was performed without the administration of intravenous contrast. Automated exposure control, iterative reconstruction, and/or weight based adjustment of the mA/kV was utilized to reduce the radiation dose to as low as reasonably achievable. COMPARISON: None. HISTORY: ORDERING SYSTEM PROVIDED HISTORY: Reason for Exam: FALL ON ELIQUIS TODAY, -LOC, LAC TO BRIDGE OF NOSE, NO PRIOR NEURO HX INJURY FINDINGS: There is no acute intracranial hemorrhage, mass, mass effect or abnormal extra-axial fluid collection. There is no CT evidence of acute infarct. The density in the larger dural venous sinuses is grossly normal. Scattered parenchymal hypodensities in the cerebral white matter are nonspecific but statistically most consistent with mild chronic microvascular angiopathy. Atherosclerotic calcifications are present in the cavernous carotid arteries bilaterally. There is proportionate enlargement of the ventricular system and cortical sulci compatible with parenchymal volume loss. The skull base and calvarium demonstrate no abnormality. The paranasal sinuses are clear. Included mastoid air cells are clear. IMPRESSION: No intracranial hemorrhage. No mass effect Volume loss. 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 Interpreted by: Ellis White MD Preliminary Report By: Ellis White MD Electronically signed By Ellis White MD Dictated Date: 06/26/2024 3:16:57 PM Prelim Date: 06/26/2024 3:19:22 PM Sign Date: 06/26/2024 3:19:22 PM Ordering Provider: [facility]05-03-2025 Note* Exam Date Time Procedure Performing Provider Status 06/26/24 2:[address] Spine Cervical w/o Contrast RYAN DOW MD; Auth (Verified) [id number] ORIGINAL EXAMINATION: CT OF THE CERVICAL SPINE WITHOUT CONTRAST 06/26/2024 2:54 pm TECHNIQUE: CT of the cervical spine was performed without the administration of intravenous contrast. Multiplanar reformatted images are provided for review. Automated exposure control, iterative reconstruction, and/or weight based adjustment of the mA/kV was utilized to reduce the radiation dose to as low as reasonably achievable. COMPARISON: None. HISTORY: ORDERING SYSTEM PROVIDED HISTORY: Reason for Exam: FALL ON ELIQUIS TODAY, -LOC, LAC TO BRIDGE OF NOSE, NO PRIOR NEURO HX, STATES NO NECK COMPLAINTS INJURY FINDINGS: BONES/ALIGNMENT: No acute fracture. Vertebral body heights are maintained. Minimal anterolisthesis of C4 on C5 and C5 on C6. DEGENERATIVE CHANGES: Multilevel degenerative changes of the spine with varying degrees of disc height loss, osteophyte formation, facet arthropathy, and neuroforaminal stenosis, greatest at C4-C5. Partial fusion of the right C6-C7 facets. At least moderate spinal canal narrowing at C5-C6, eccentric to the left. SOFT TISSUES: There is no prevertebral soft tissue swelling. Additional: The visualized lung apices are unremarkable. Incidentally noted 2.4 cm right thyroid nodule. IMPRESSION: No acute fracture or traumatic malalignment of the cervical spine. I have personally reviewed the images of this examination and agree with the resident's findings and interpretation. Interpreted by: Ryan Dow Preliminary Report By: Hillary Hemphill Electronically signed By Ryan Dow Dictated Date: 06/26/2024 3:16:54 PM Prelim Date: 06/26/2024 3:22:55 PM Sign Date: 06/26/2024 3:58:00 PM Ordering Provider: [facility]04-24-2025 Discharge summary Author Curt Henderson [facility] Note Date/Time June 17, 2024 12: 00pm [facility] Medical Records Department [address] [place] [address] Instructions for Home/Discharge Instructions 06/17/24 1035 MR#: [id number] Acct: [id number] Name: SCOTT TALBERT Rep #:[id number] : 1945 78 From: Curt Ann PCP: Dr. Cole Cardona, DO Status:AD M IN Discharge Instructions Diet Discharge Diet: No restrictions DC O2, CPAP, BIPAP needs Home O2 Discharge instructions: No Dressing / Incision Discharge Activity: Return to Normal Activity Weight Bearing Status: Weight bearing as tolerated Dressing / Incision Call your doctor if you observe: Fever of 101 or Higher, Coldness, Increased Pain, Numbness or Tingling, Change in Color, Inability to urinate, Inability to have a bowel movement, Shortness of breath, Dizziness, Fainting spells, Swellingin the ankles, Chest pain, Prolonged hiccupping, Increased palpitations (irregular heartbeat) and Calf discomfort Follow Up Care When: IN 2 WEEKS Test Results: Test results from this visit will be discussed in further detail at your follow- up appointment, if applicable. Discharge Plan Admission Admit Date/Time: 06/14/24 11:35 Primary Reason for Your Visit: Generalized weakness Attending Provider: Curt Henderson Primary Care Provider: Cloe Cardona Consulting Providers: Art Rivas Instructions Additional Instructions / Restrictions: Follow-up with the ld teacher in [facility] Dr. Newman Discharge Orders/Prescriptions Prescriptions: New amoxicillin-pot clavulanate 875-125 mg tablet 1 tab PO BID 5 Days Qty: 10 0RF doxycycline monohydrate 100 mg tablet 100 mg PO BID 5 Days Qty: 10 0RF Continued (DME) blood pressure monitor Kit See Rx Instructions .ROUTE .MEDSUPPLY Qty: 1 0RF Rx Instructions: As directed atorvastatin 40 mg tablet See Rx Instructions .ROUTE .COMPLEX Qty: 90 2RF Dose Instruction: TAKE 1 TABLET DAILY Rx Instructions: TAKE 1 TABLET DAILY Eliquis 2.5 mg tablet 2.5 mg PO BID Qty: 180 1RF ferrous sulfate [Feosol] 325 mg (65 mg iron) tablet 650 mg PO QDAY amlodipine 5 mg tablet 5 mg PO DAILY Qty: 90 1RF betamethasone dipropionate 0.05 % cream 1 applic TOPICAL DAILY PRN (Reason: rash) Qty: 45 1RF cephalexin 250 mg capsule 250 mg PO 4X/DAY meclizine 25 mg tablet 25 mg PO BID PRN (Reason: dizziness) venlafaxine 37.5 mg tablet 37.5 mg PO QDAY Qty: 90 1RF chlordiazepoxide HCl 5 mg capsule 10 mg PO Q12H PRN (Reason: anxiety) Qty: 60 0RF (DME) handicap placard See Rx Instructions .Route .MEDSUPPLY Qty: 1 0RF Rx Instructions: Duration 5 years, difficulty with ambualation. Referrals / Follow Up: Cole Cardona DO [Primary Care Provider] - Within 2 Weeks Disposition Disposition (needs filled in before D/C Order can be placed): Home Health Service 06/17/24 1200<Electronically signed by Curt Henderson MD>Curt Henderson MD CC: Dr. Art Rivas DO; Dr. Cole Cardona DO ~ Signed [facility] Work Phone: [phone] [facility] Medical Records Department [address] [place] [address] Discharge Summary 06/17/24 1201 MR#: [id number] Acct: [id number] Name: SCOTT TALBERT Rep #:[id number] : 1945 78 From: Curt Ann PCP: Dr. Cole Cardona DO Status:AD M IN Location: [facility] [place] Providers Date of Admission: 06/14/24 Date of Discharge: 06/17/24 Primary Care Physician: Dr. Cole Cardona DO Consultations 06/14/24 10:42 Consult: Gastroenterology Routine Consulting Provider: [facility] Reason for Consult: right sided colon/cecum suspected mass//thickening EMERGENT Consult: No MD Notified: Yes Date Notified: 06/14/24 Time Notified: 10:42 Method of Notification: Text Reason For Visit: WORSENING WEAKNESS Diagnosis Discharge Diagnosis (1) Generalized weakness: Status: Acute Code(s): R53.1 - Weakness Plan Patient is a 78-year-old female who presented to [facility] ED on 06/13/2024 with worsening weakness over past 4 to 5 days. She is having difficulty in getting up and ambulate. [facility] but she did not get better. 1. Acute on chronic debility ? Admit under observation status to [facility]. PT/OT/case management consulted. On exam patient with good muscle strength of hip and knee joints. Has mild gaitimbalance sometimes. Probably from chronicdisease including osteoarthritis with suspected underlying malignancy 06/16: Probably patient be discharged to TCU tomorrow. 06/17: As per clinical case manager, she did not meet criteria for discharge to SNF therefore being discharged home with Augmentin. 2. Concern for postobstructive pneumonia, ? CTA chest showed dense left lower lobe consolidation with concern for possiblepostobstructive pneumonia; see HPI for further details on this. UA mildly infectious appearing. Urine culture from 06/11growing only 11 K -25,000 gram-negative rods therefore UTI ruled out. she has been treated with Keflex since for UTI without much improvement. Patient did not have IV and vancomycin. Air Brake Man consulted. 06/15: [facility] but she states he needs to go to custodial to get her to go home therefore could not be discharged. 06/17: Patient 4 days of IV antibiotics here. Discharged on 5 more days of Augmentin and doxycycline. Advised to follow-up with the ld teacher as mentioned above in 2 weeks. 3. Concern for malignancy: Previous CT scan abdomen shows focal irregular wall thickening of cecum and ascending colon with luminal narrowing suggestive of neoplasm. There is similar finding in December 2020 but at that time patientrefused for colonoscopy. Patient continues to have normal stools and reports no right-sided abdominal pain. Other concerningfindings include right expansile lytic lesion of right acromion with associated pathologic fracture, mildly enlarged subcarinal and left hilar lymph nodes, L4 vertebral body 1.4 cm sclerotic lesion, and prominentretroperitoneal and right lower quadrant lymph nodes. GI consulted 06/15: Patient refused for colonoscopy. She was upset when she was started on clear liquid yesterday. 4. Persistent sinus tachycardia ? Sinus tachycardia to the 120s to low 130s in the ED. improved with IV fluid 5. Left lower lobe consolidative mass ? See HPI for further details. In short, was found to have consolidative mass in December and recently had bronchoscopy with biopsy done in early May with biopsy results negative for malignancy. Chronic medical conditions: ? Class I obesity: BMI 33 on admit. Complicates hospital course, care and prognosis. ? Hypertension: Continue home amlodipine. ? Hyperlipidemia: Continue home statin. ? Anxiety/depression: Continue home venlafaxine and chlordiazepoxide twice dailyas needed. ? 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 ? Recent GI bleed: Had GI bleed in December that was suspected secondary to supratherapeutic INR while patient was on warfarin. Patient refused EGD or colonoscopy. GI bleed resolved with improvement in INR and hemoglobin has sinceimproved. DVT prophylaxis: Not indicated, on Eliquis CODE STATUS: DNR CCA, DNI Discharge medication reconciliation done. Discharge follow-up instructions completed. Discharge process discussed with the patient and all questions wereanswered to patient's satisfaction. Follow with PCP in 1 to 2 weeks Total time spent, exact 35 minutes on discharge meds reconciliation, examination, coordination of care with nurses and ancillary staff, review of imaging and blood test and discussion with the patient on follow-up instructions. Medications at Discharge Home Medications blood pressure monitor #1 ea 06/02/23 venlafaxine 37.5 mg tablet 37.5 mg PO QDAY #90 tabs 07/11/23 atorvastatin 40 mg tablet See Rx Instructions .Route .COMPLEX #90 tabs 08/19/23 chlordiazepoxide HCl 5 mg capsule 10 mg (2 x 5 mg) PO Q12H PRN anxiety #60 caps 12/24/23 apixaban 2.5 mg tablet (Eliquis) 2.5 mg PO BID #180 tabs 02/04/24 amlodipine 5 mg tablet 5 mg PO DAILY #90 tabs 03/23/24 betamethasone dipropionate 0.05 % topical cream 1 applic topical DAILY PRN rash #45 grams 03/23/24 ferrous sulfate 325 mg (65 mg iron) tablet (Feosol) 650 mg PO QDAY 03/23/24 handicap placard #1 ea 05/26/24 cephalexin 250 mg capsule 250 mg PO 4X/DAY 06/11/24 meclizine 25 mg tablet 25 mg PO BID PRN dizziness 06/12/24 amoxicillin 875 mg-potassium clavulanate 125 mg tablet 1 tab PO BID 5 days #10 tabs 06/17/24 doxycycline monohydrate 100 mg tablet 100 mg PO BID 5 days #10 tabs 06/17/24 Physical Exam Narrative Seen and examined. No acute issues. Denies fever or chills Physical exam General: Alert, Oriented x3, Cooperative. BMI 33.0 kg/m? HEENT: Atraumatic, PERRLA, EOMI, Normocephalic Oral: No Gingival or Mucosal Lesions/ Ulcerations Neck: Supple, No JVD, Negative Carotid Bruits Chest wall/Lungs: Air entry diminished, more in left lung base. No crepitation/rhonchi Cardiovascular: Regular rate, Regular Rhythm, Normal S1, Normal S2, No M/G/R Abdomen: Bowel Sounds Present, Soft, Non Tender, Non-Distended : No dysuria. No renal angle tenderness. No suprapubic tenderness. Extremities: No edema, Capillary Refill Less than 3 Seconds Skin: No rashes, No breakdown Musculoskeletal: No Tenderness to Palpation of Joints or Extremities. Muscle strength 5/5 at knees and hip joints. Neurological: Cranial nerves II-XII grossly intact, DTR 2+/4. No acute focal neurological deficit. Psych/Mental Status: Normal Affect, Appropriate. Weight / BMI Weight Weight: 180 lb 5.41 oz Body Mass Index (BMI) 33.0 ABG / Lab / Microbiology Data 06/14/24 07:05 06/17/24 05:16 Laboratory: Laboratory Results - last 24 hr 06/17/24 02:29: Creatinine 0.54 L, Estim Creat Clear Calc 56.51, Est GFR (MDRD) Non-Af 94, Vancomycin Trough 15.7 H 06/17/24 05:16: Sodium 140, Potassium 3.2 L, Chloride 102, Carbon Dioxide 27.3, Anion Gap 10, BUN 7, Creatinine 0.49 L, Estim Creat Clear Calc 56.51, Est GFR (MDRD) Non-Af 96, BUN/Creatinine Ratio 14.2, Glucose 123 H, Calcium 8.8 D/C Instructions Discharge Diet: No restrictions Weight Bearing Status: Weight bearing as tolerated Call your doctor if you observe: Fever of 101 or Higher, Coldness, Increased Pain, Numbness or Tingling, Change in Color, Inability to urinate, Inability to have a bowel movement, Shortness of breath, Dizziness, Fainting spells, Swellingin the ankles, Chest pain, Prolonged hiccupping, Increased palpitations (irregular heartbeat) and Calf discomfort DC O2, CPAP, BIPAP Needs Home O2 Discharge instructions: No When: IN 2 WEEKS Meaningful Use Info Meaningful Use Meaningful Use Diagnoses (Choose all that apply): None applicable Ischemic Stroke Statin Dosing Therapy Reference: STATIN DOSE THERAPY REFERENCE: * Patients > 75 years receive moderate or high dose statin therapy. * Patients 75 years or YOUNGER should receive HIGH intensity statin dose unless contraindicated. You will be required to document reason for non-treatment if statin daily dose does not meet guidelines. HIGH DOSE STATIN THERAPY DAILY Atorvastatin > than or = to 40 mg Rosuvastatin > than or = to 20 mg Amlodipine + Atorvastatin > than or = to 2.5/40 mg Ezetimibe + Simvastatin 10/80 mg Simvastatin 80mg Discharge Plan Admission Admit Date/Time: 06/14/24 11:35 Primary Reason for Your Visit: Generalized weakness Attending Provider: Curt Henderson Primary Care Provider: Cole Cardona Consulting Providers: Art Rivas Additional Instructions / Restrictions: Follow-up with the ld teacher in [facility] Dr. Newman Discharge Orders/Prescriptions Prescriptions: New amoxicillin-pot clavulanate 875-125 mg tablet 1 tab PO BID 5 Days Qty: 10 0RF doxycycline monohydrate 100 mg tablet 100 mg PO BID 5 Days Qty: 10 0RF Continued (DME) blood pressure monitor Kit See Rx Instructions .ROUTE .MEDSUPPLY Qty: 1 0RF Rx Instructions: As directed atorvastatin 40 mg tablet See Rx Instructions .ROUTE .COMPLEX Qty: 90 2RF Dose Instruction: TAKE 1 TABLET DAILY Rx Instructions: TAKE 1 TABLET DAILY Eliquis 2.5 mg tablet 2.5 mg PO BID Qty: 180 1RF ferrous sulfate [Feosol] 325 mg (65 mg iron) tablet 650 mg PO QDAY amlodipine 5 mg tablet 5 mg PO DAILY Qty: 90 1RF betamethasone dipropionate 0.05 % cream 1 applic TOPICAL DAILY PRN (Reason: rash) Qty: 45 1RF cephalexin 250 mg capsule 250 mg PO 4X/DAY meclizine 25 mg tablet 25 mg PO BID PRN (Reason: dizziness) venlafaxine 37.5 mg tablet 37.5 mg PO QDAY Qty: 90 1RF chlordiazepoxide HCl 5 mg capsule 10 mg PO Q12H PRN (Reason: anxiety) Qty: 60 0RF (DME) handicap placard See Rx Instructions .Route .MEDSUPPLY Qty: 1 0RF Rx Instructions: Duration 5 years, difficulty with ambualation. Referrals / Follow Up: Cole Cardona DO [Primary Care Provider] - Within 2 Weeks Disposition Disposition (needs filled in before D/C Order can be placed): Home Health Service Charges/Coding Visit Charges Inpatient E&M: 01149 Disch Hosp >30min 06/17/24 1202 Cosigner Signature (if applicable): CC: Dr. Cole Cardona DO; Dr. Curt Henderson MD~ Signed [facility]04-24-2025 [facility] Discharge summary [facility] Medical Records Department [address] [place] [address] Instructions for Home/Discharge Instructions 06/17/24 1035 MR#: [id number] Acct: [id number] Name: SCOTT TALBERT Rep #:[id number] : 1945 78 From: Curt Ann PCP: Dr. Cole Cardona DO Status:AD M IN Discharge Instructions Diet Discharge Diet: No restrictions DC O2, CPAP, BIPAP needs Home O2 Discharge instructions: No Dressing / Incision Discharge Activity: Return to Normal Activity Weight Bearing Status: Weight bearing as tolerated Dressing / Incision Call your doctor if you observe: Fever of 101 or Higher, Coldness, Increased Pain, Numbness or Tingling, Change in Color, Inability to urinate, Inability to have a bowel movement, Shortness of breath, Dizziness, Fainting spells, Swellingin the ankles, Chest pain, Prolonged hiccupping, Increased palpitations (irregular heartbeat) and Calf discomfort Follow Up Care When: IN 2 WEEKS Test Results: Test results from this visit will be discussed in further detail at your follow- up appointment, if applicable. Discharge Plan Admission Admit Date/Time: 06/14/24 11:35 Primary Reason for Your Visit: Generalized weakness Attending Provider: Curt Henderson Primary Care Provider: Cole Cardona Consulting Providers: Art Rivas Additional Instructions / Restrictions: Follow-up with the ld teacher in [facility] Dr. Newman Discharge Orders/Prescriptions Prescriptions: New amoxicillin-pot clavulanate 875-125 mg tablet 1 tab PO BID 5 Days Qty: 10 0RF doxycycline monohydrate 100 mg tablet 100 mg PO BID 5 Days Qty: 10 0RF Continued (DME) blood pressure monitor Kit See Rx Instructions .ROUTE .MEDSUPPLY Qty: 1 0RF Rx Instructions: As directed atorvastatin 40 mg tablet See Rx Instructions .ROUTE .COMPLEX Qty: 90 2RF Dose Instruction: TAKE 1 TABLET DAILY Rx Instructions: TAKE 1 TABLET DAILY Eliquis 2.5 mg tablet 2.5 mg PO BID Qty: 180 1RF ferrous sulfate [Feosol] 325 mg (65 mg iron) tablet 650 mg PO QDAY amlodipine 5 mg tablet 5 mg PO DAILY Qty: 90 1RF betamethasone dipropionate 0.05 % cream 1 applic TOPICAL DAILY PRN (Reason: rash) Qty: 45 1RF cephalexin 250 mg capsule 250 mg PO 4X/DAY meclizine 25 mg tablet 25 mg PO BID PRN (Reason: dizziness) venlafaxine 37.5 mg tablet 37.5 mg PO QDAY Qty: 90 1RF chlordiazepoxide HCl 5 mg capsule 10 mg PO Q12H PRN (Reason: anxiety) Qty: 60 0RF (DME) handicap placard See Rx Instructions .Route .MEDSUPPLY Qty: 1 0RF Rx Instructions: Duration 5 years, difficulty with ambualation. Referrals / Follow Up: Cole Cardona DO [Primary Care Provider] - Within 2 Weeks Disposition Disposition (needs filled in before D/C Order can be placed): Home Health Service 06/17/24 Rex Henderson MD CC: Dr. Art Rivas DO; Dr. Cole Cardona DO ~ Signed [facility]04-24-2025 Consult note Author Keanu Ernst [facility] Note Date/Time June 17, 2024 3:5 8am [facility] Medical Records Department [address] [facility] [address] Pharmacokinetic/Renal -Consult 04/356 MR#: [id number] Acct: [id number] Name: SCOTT TALBERT Rep #:[id number] : 1945 78 From: Keanu Ernst PCP: Dr. Cole Cardona, DO Status:AD M IN Y Location: [place] [id number] Consult Antibiotic Management Pharmacy has been consulted to manage selected antibiotic: Vancomycin Type of Intervention Type of Consult: Follow-up Labs Labs: Sodium 139 mmol/L (133-145) 06/14/24 07:05 Potassium 3.0 mmol/L (3.3-5.1) L 06/14/24 07:05 Chloride 104 mmol/L (98-108) 06/14/24 07:05 Carbon Dioxide 25.6 mmol/L (21.0-32.0) 06/14/24 07:05 Anion Gap 10 (5-15) 06/14/24 07:05 BUN 7 mg/dL (4-19) 06/14/24 07:05 Creatinine 0.54 mg/dL (0.70-1.20) L 06/17/24 02:29 Est GFR (MDRD) Non-Af 94 (>60) 06/17/24 02:29 BUN/Creatinine Ratio 13.2 RATIO (10-20) 06/14/24 07:05 Glucose 131 mg/dL (70-99) H 06/14/24 07:05 Vancomycin Trough 15.7 ug/mL (5.0-15.0) H 06/17/24 02:29 Dosing Weight Weight used for dosin kg Estimated Creatinine Clearance Estimated Creatinine Clearance: 57 Goal Trough Goal Trough: 15-20 mcg/mL Pharmacy Plan for Drug Dosing Pharmacy Plan for Drug Dosing: Vancomycin trough level of 15.7, drawn 11.75hrs post-dose, was within the targetrange of 15-20. Will continue dosing at 1500mg q12h, and will draw another trough level in two days. Pharmacy Service will continue to monitor and adjust dosing as required. Follow-Up Labs Follow-Up Labs: Trough: Vancomycin Date/Time Labs Ordered Labs to be done on [date and time ordered]: 06/19/24 @0230 06/17/24 0358 <Electronically signed by Keanu peng> Date _ Keanu Abbott Signature (if applicable): Date CC: ~ Signed [facility] Work Phone: 1([phone]) 121-216704-24-2025 Consult note [facility] Medical Records Department [address] [place] [address] Pharmacokinetic/Renal -Consult 06/17/24 0357 MR#: [id number] Acct: [id number] Name: SCOTT TALBERT Rep #:[id number] : 1945 78 From: Keanu Ernst PCP: Dr. Cole Cardona, DO Status:AD M IN Location: [place] [id number] Consult Antibiotic Management Pharmacy has been consulted to manage selected antibiotic: Vancomycin Type of Intervention Type of Consult: Follow-up Labs Labs: Sodium 139 mmol/L (133-145) 06/14/24 07:05 Potassium 3.0 mmol/L (3.3-5.1) L 06/14/24 07:05 Chloride 104 mmol/L (98-108) 06/14/24 07:05 Carbon Dioxide 25.6 mmol/L (21.0-32.0) 06/14/24 07:05 Anion Gap 10 (5-15) 06/14/24 07:05 BUN 7 mg/dL (4-19) 06/14/24 07:05 Creatinine 0.54 mg/dL (0.70-1.20) L 06/17/24 02:29 Est GFR (MDRD) Non-Af 94 (>60) 06/17/24 02:29 BUN/Creatinine Ratio 13.2 RATIO (10-20) 06/14/24 07:05 Glucose 131 mg/dL (70-99) H 06/14/24 07:05 Vancomycin Trough 15.7 ug/mL (5.0-15.0) H 06/17/24 02:29 Dosing Weight Weight used for dosin kg Estimated Creatinine Clearance Estimated Creatinine Clearance: 57 Goal Trough Goal Trough: 15-20 mcg/mL Pharmacy Plan for Drug Dosing Pharmacy Plan for Drug Dosing: Vancomycin trough level of 15.7, drawn 11.75hrs post-dose, was within the targetrange of 15-20. Will continue dosing at 1500mg q12h, and will draw another trough level in two days. Pharmacy Service will continue to monitor and adjust dosing as required. Follow-Up Labs Follow-Up Labs: Trough: Vancomycin Date/Time Labs Ordered Labs to be done on [date and time ordered]: 06/19/24 @0230 06/17/24 0358 ds> Date _ Keanu Abbott Signature (if applicable): Date CC: ~ Signed [facility]04-23-2025 Progress note Author Curt Henderson [facility] Note Date/Time June 16, 2024 4:0 7pm [facility] Medical Records Department [address] [place] [address] Progress Note - Hospitalist 06/16/24 1605 MR#: [id number] Acct: [id number] Name: SCOTT TALBERT Carlotta Rep #:[id number] : 1945 78 From: Curt Ann PCP: Dr. Cole Cardona, DO Status:AD M IN Location: [place] [id number] Reason for Visit Reason for Visit: Diagnoses Weakness (06/14/24) Objective Data Objective Data Vital Signs: Vital Signs Temp Pulse Resp BP Pulse Ox O2 Del Method O2 Flow Rate 97.4 F L 89 18 120/69 93 Room Air 2 06/16/24 15:53 06/16/24 15:53 06/16/24 15:53 06/16/24 15:53 06/16/24 15:53 06/16/24 15:53 06/15/24 05:41 Oxygen Flow Rate (L/min) 2 Oxygen Delivery Method Room Air Weight: 180 lb 5.41 oz Body Mass Index (BMI) 33.0 Intake & Output: Intake and Output for Last 24 Hours 06/14/24 06/15/24 06/16/24 23:59 23:59 23:59 Intake Total 1895 / 1895 2195 / 2195 730 / 730 Output Total 500 / 500 600 / 600 Balance 1395 / 1395 2195 / 2195 130 / 130 Lab / Micro Data 06/14/24 07:05 06/14/24 07:05 Physical Exam Narrative Seen and examined. Waiting for pre-CERT for rehab. She refused for colonoscopy to me and Dr. Friend. She did not had low urinary tract symptoms but was given antibiotic on the basis of abnormal UA. She did not feel better. On chart review it seems patient has right colonic thickening/mass but patient refused for colonoscopy in the past. She also had colonoscopy about 3 weeks agoand from the note it seems pathology was negative. Denies fever or chills Physical exam General: Alert, Oriented x3, Cooperative. BMI 33.0 kg/m? HEENT: Atraumatic, PERRLA, EOMI, Normocephalic Oral: No Gingival or Mucosal Lesions/ Ulcerations Neck: Supple, No JVD, Negative Carotid Bruits Chest wall/Lungs: Air entry diminished, more in left lung base no crepitation/rhonchi Cardiovascular: Regular rate, Regular Rhythm, Normal S1, Normal S2, No M/G/R Abdomen: Bowel Sounds Present, Soft, Non Tender, Non-Distended : No dysuria. No renal angle tenderness. No suprapubic tenderness. Extremities: No edema, Capillary Refill Less than 3 Seconds Skin: No rashes, No breakdown Musculoskeletal: No Tenderness to Palpation of Joints or Extremities. Muscle strength 5/5 at knees and hip joints. Neurological: Cranial nerves II-XII grossly intact, DTR 2+/4. No acute focal neurological deficit. Psych/Mental Status: Normal Affect, Appropriate. Assessment & Plan Assessment/Plan (1) Generalized weakness: PLAN: Plan Patient is a 78-year-old female who presented to [facility] ED on 06/13/2024 with worsening weakness over past 4 to 5 days. She is having difficulty in getting up and ambulate. She was given antibiotic [facility] for presumed UTI but she did not get better. 1. Acute on chronic debility ? Admit under observation status to [facility]. PT/OT/case management consulted. On exam patient with good muscle strength of hip and knee joints. Has mild gaitimbalance sometimes. Probably from chronic disease including osteoarthritis with suspected underlying malignancy 06/16: Probably patient be discharged to TCU tomorrow. 2. Concern for postobstructive pneumonia, ? CTA chest showed dense left lower lobe consolidation with concern for possiblepostobstructive pneumonia; see HPI for further details on this. UA mildly infectious appearing. Urine culture from 06/11 growing only 11 K -25,000 gram- negative rods therefore UTI ruled out. she has been treated with Keflex since for UTI without much improvement. Patient did not have IV and vancomycin. Air Brake Man consulted. 06/15: Patient stated [facility] but she states he needs to go to custodial to get her to go home therefore could not be discharged. 3. Concern for malignancy: Previous CT scan abdomen shows focal irregular wall thickening of cecum and ascending colon with luminal narrowing suggestive of neoplasm. There is similar finding in December 2020 but at that time patientrefused for colonoscopy. Patient continues to have normal stools and reports no right-sided abdominal pain. Other concerning findings include right expansile lytic lesion of right acromion with associated pathologic fracture, mildly enlarged subcarinal and left hilar lymph nodes, L4 vertebral body 1.4 cm sclerotic lesion, and prominentretroperitoneal and right lower quadrant lymph nodes. GI consulted 06/15: Patient refused for colonoscopy. She was upset when she was started on clear liquid yesterday. 4. Persistent sinus tachycardia ? Sinus tachycardia to the 120s to low 130s in the ED. improved with IV fluid 5. Left lower lobe consolidative mass ? See HPI for further details. In short, was found to have consolidative mass in December and recently had bronchoscopy with biopsy done in early May with biopsy results negative for malignancy. Chronic medical conditions: ? Class I obesity: BMI 33 on admit. Complicates hospital course, care and prognosis. ? Hypertension: Continue home amlodipine. ? Hyperlipidemia: Continue home statin. ? Anxiety/depression: Continue home venlafaxine and chlordiazepoxide twice dailyas needed. ? 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 ? Recent GI bleed: Had GI bleed in December that was suspected secondary to supratherapeutic INR while patient was on warfarin. Patient refused EGD or colonoscopy. GI bleed resolved with improvement in INR and hemoglobin has sinceimproved. DVT prophylaxis: Not indicated, on Eliquis CODE STATUS: DNR CCA, DNI Charges/Coding Visit Charges Inpatient E&M: 75637 Subs Hosp L2 06/16/24 1607 <Electronically signed by Curt Henderson MD> Cosigner Signature (if applicable): CC: ~ Signed [facility] Work Phone: 1(169) 958-912604-23-[address] [facility] Medical Records Department [address] [place] [address] Progress Note - Hospitalist 06/16/24 1605 MR#: [id number] Acct: [id number] Name: SCOTT TALBERT Rep #:[id number] : 1945 78 From: Curt Ann PCP: Dr. Cole Cardona, DO Status:AD M IN Location: [address] Reason for Visit Reason for Visit: Diagnoses Weakness (06/14/24) Objective Data Objective Data Vital Signs: Vital Signs Temp Pulse Resp BP Pulse Ox O2 Del Method O2 Flow Rate 97.4 F L 89 18 120/69 93 Room Air 2 06/16/24 15:53 06/16/24 15:53 06/16/24 15:53 06/16/24 15:53 06/16/24 15:53 06/16/24 15:53 06/15/24 05:41 Oxygen Flow Rate (L/min) 2 Oxygen Delivery Method Room Air Weight: 180 lb 5.41 oz Body Mass Index (BMI) 33.0 Intake & Output: Intake and Output for Last 24 Hours 06/14/24 06/15/24 06/16/24 23:59 23:59 23:59 Intake Total 1895 / 1895 2195 / 2195 730 / 730 Output Total 500 / 500 600 / 600 Balance 1395 / 1395 2195 / 2195 130 / 130 Lab / Micro Data 06/14/24 07:05 06/14/24 07:05 Physical Exam Narrative Seen and examined. Waiting for pre-CERT for rehab. She refused for colonoscopy to me and Dr. Naylor. She did not had low urinary tract symptoms but was given antibiotic on the basis of abnormal UA. She did not feel better. On chart review it seems patient has right colonic thickening/mass but patient refused for colonoscopy in the past. She also had colonoscopy about 3 weeks agoand from the note it seems pathology was negative. Denies fever or chills Physical exam General: Alert, Oriented x3, Cooperative. BMI 33.0 kg/m? HEENT: Atraumatic, PERRLA, EOMI, Normocephalic Oral: No Gingival or Mucosal Lesions/ Ulcerations Neck: Supple, No JVD, Negative Carotid Bruits Chest wall/Lungs: Air entry diminished, more in left lung base no crepitation/rhonchi Cardiovascular: Regular rate, Regular Rhythm, Normal S1, Normal S2, No M/G/R Abdomen: Bowel Sounds Present, Soft, Non Tender, Non-Distended : No dysuria. No renal angle tenderness. No suprapubic tenderness. Extremities: No edema, Capillary Refill Less than 3 Seconds Skin: No rashes, No breakdown Musculoskeletal: No Tenderness to Palpation of Joints or Extremities. Muscle strength 5/5 at knees and hip joints. Neurological: Cranial nerves II-XII grossly intact, DTR 2+/4. No acute focal neurological deficit. Psych/Mental Status: Normal Affect, Appropriate. Assessment & Plan Assessment/Plan (1) Generalized weakness: PLAN: Plan Patient is a 78-year-old female who presented to [facility] ED on 06/13/2024 with worsening weakness over past 4 to 5 days. She is having difficulty in getting up and [facility]ulate. [facility]. 1. Acute on chronic debility ? Admit under observation status to [facility]. PT/OT/case management consulted. On exam patient with good muscle strength of hip and knee joints. Has mild gaitimbalance sometimes. Probably from chronicdisease including osteoarthritis with suspected underlying malignancy 06/16: Probably patient be discharged to TCU tomorrow. 2. Concern for postobstructive pneumonia, ? CTA chest showed dense left lower lobe consolidation with concern for possiblepostobstructive pneumonia; see HPI for further details on this. UA mildly infectious appearing. Urine culture from 06/11growing only 11 K -25,000 gram-negative rods therefore UTI ruled out. she has been treated with Keflex since for UTI without much improvement. Patient did not have IV and vancomycin. Air Brake Man consulted. 06/15: Patient stated she [facility] but she states he needs to go to custodial to get her to go home therefore could not be discharged. 3. Concern for malignancy: Previous CT scan abdomen/ shows focal irregular wall thickening of cecum and ascending colon with luminal narrowing suggestive of neoplasm. There is similar finding in December 2020 but at that time patientrefused for colonoscopy. Patient continues to have normal stools and reports no right-sided abdominal pain. Other concerningfindings include right expansile lytic lesion of right acromion with associated pathologic fracture, mildly enlarged subcarinal and left hilar lymph nodes, L4 vertebral body 1.4 cm sclerotic lesion, and prominentretroperitoneal and right lower quadrant lymph nodes. GI consulted 06/15: Patient refused for colonoscopy. She was upset when she was started on clear liquid yesterday. 4. Persistent sinus tachycardia ? Sinus tachycardia to the 120s to low 130s in the ED. improved with IV fluid 5. Left lower lobe consolidative mass ? See HPI for further details. In short, was found to have consolidative mass in December and recently had bronchoscopy with biopsy done in early May with biopsy results negative for malignancy. Chronic medical conditions: ? Class I obesity: BMI 33 on admit. Complicates hospital course, care and prognosis. ? Hypertension: Continue home amlodipine. ? Hyperlipidemia: Continue home statin. ? Anxiety/depression: Continue home venlafaxine and chlordiazepoxide twice dailyas needed. ? 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 ? Recent GI bleed: Had GI bleed in December that was suspected secondary to supratherapeutic INR while patient was on warfarin. Patient refused EGD or colonoscopy. GI bleed resolved with improvement in INR and hemoglobin has sinceimproved. DVT prophylaxis: Not indicated, on Eliquis CODE STATUS: DNR CCA, DNI Charges/Coding Visit Charges Inpatient E&M: 89027 Subs Hosp L2 06/16/24 7422 Cosigner Signature (if applicable): CC: ~ Signed [facility] [id number] Consult note Author Stanislaw Naylor [facility] Note Date/Time June 15, 2024 6:0 1pm [facility] Medical Records Department [address] [place] [address] Consultation - GI 06/14/24 1744 MR#: [id number] Acct: [id number] Name: SCOTT TALBERT Rep #:[id number] : 1945 78 From: Stanislaw Naylor DO PCP: Dr. Cole Cardona, DO Status:AD M IN Location: SC3 OD986-8 HPI Consult Data Date of Consult: 06/14/24 HPI Narrative Reason for Consultation: Abnormal CT scan HPI Narrative: SCOTT TALBERT, is a 78 F who presented to [facility] ED on 06/13/2024 with worsening weakness. Patient was seen in the ED on 06/12 for similar concern. She was also reporting intermittent left-sided flank pain at that time. Was noted to have WBC count of 16, neutrophil predominant but CBC and BMP were otherwise unremarkable. UA was mildly infectious appearing. She was tachycardic to the 130s and had low-grade fever to 99.2F, but tachycardia resolved with IV fluid resuscitation. CT abdomen pelvis with IV contrast showed no pyelonephritis, did show focal irregular wall thickening of the cecum and ascending colon concerning for malignancy versus focal colitis, prominent retroperitoneal lymph nodes and rightlower quadrant lymph nodes, and suspected filling defects in the left lower lobepulmonary arteries concerning for PE with left lower lobe consolidation. CTA chest showed no PE, did show densely consolidated large portion of left lower lobe with airway obstruction/opacification concerning for possible infectious/inflammatory process versus neoplastic process; also showed an expansile lytic lesion of the right acromion with areas of cortical disruption concerning for neoplastic process with associated pathologic fracture, as well as mildly enlarged subcarinal and left hilar lymph nodes. Importantly, on further chart review patient was hospitalized at [facility] in December, see note from 01/04 for further details. In short, she was on Coumadin for history of PE and presented there with rectal bleeding and was found to have supratherapeutic INR. CT abdomen pelvis showed no active GI bleedbut did show thickening of cecum and proximal ascending colon. GI recommended colonoscopy but patient declined this. 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 CT chest showed new dense left lower lobe consolidation. Pulmonology recommended outpatient bronchoscopy, and patient notably just completed this in early May and biopsy was negative for malignancy. Her GI bleed resolved with improved INR and she was opted to be discharged home on Eliquis. [facility] Medical History DVT (deep venous thrombosis) Pneumonia Osteoarthritis High triglycerides High cholesterol Arthritis Home Medications ?Medication ?Instructions ?Recorded ?Last Taken ?Type blood pressure monitor #1 ea 06/02/23 Unknown Rx venlafaxine 37.5 mg tablet 37.5 mg PO QDAY #90 tabs Unknown Rx atorvastatin 40 mg tablet See Rx Instructions .Route 0 08/19/23 Unknown Rx .COMPLEX #90 tabs chlordiazepoxide HCl 5 mg capsule 10 mg (2 x 5 mg) PO Q12H PRN 12/24/23 Unknown Rx anxiety #60 caps apixaban 2.5 mg tablet (Eliquis) 2.5 mg PO BID #180 ta bs 02/04/24 Unknown Rx amlodipine 5 mg tablet 5 mg PO DAILY #90 tabs 03/23 Unknown Rx betamethasone dipropionate 0.05 % 1 applic topical EVAN LY PRN rash 03/23/24 Unknown Rx topical cream #45 grams ferrous sulfate 325 mg (65 mg 650 mg PO QDAY 03/23/24 Unknown History iron) tablet (Feosol) handicap placard #1 ea 05/26/24 Unknown Rx cephalexin 250 mg capsule 250 mg PO 4X/DAY 06/11/24 Un known History meclizine 25 mg tablet 25 mg PO BID PRN dizziness 0 06/12/24 Unknown History Allergy/AdvReac Type Severity Reaction Status Date / Time prednisone Allergy Unknown Rash Verified 06/13/24 19:49 diphenhydramine (From Allergy Rash Verified 06/13/24 19:49 Benadryl) Influenza Virus Vaccines AdvReac Intermediate Other Verified 06/14/24 00:41 (flu vaccine) Family History Mother Arthritis Brother Myocardial infarction Father Heart disease Surgical History History of bilateral knee replacement History of umbilical hernia repair History of tonsillectomy Social History Smoking Status: Never smoker alcohol intake: never substance use type: does not use what type of physical activity do you participate in: swimming ROS Constitutional Constitutional: Denies fatigue, fever(s), poor appetite, weight gain or weight loss Gastrointestinal Gastrointestinal: Denies belching, bloating, change in bowel habits, change in stool character, chewing difficulty, coffee ground emesis, constipation, cramping, diarrhea, dyspepsia, dysphagia, early satiety, excessive flatus, fecalincontinence, heartburn, hematemesis, hematochezia, hemorrhoids, loose stools, melena, nausea, odynophagia, rectal bleeding, tenesmus, vomiting or weight changes Physical Exam Const alert, oriented x3 and no apparent distress Constitutional Narrative: Pleasant elderly female, class I obesity, mildly fatigued appearing but otherwise sitting back comfortably in bed, conversing normally, in no acute distress. General Appearance: cooperative and comfortable HEENT normocephalic, head/scalp atraumatic, hearing grossly normal bilaterally, nasal mucous membranes and turbinates normal and moist oral mucous membranes Eyes PERRL, EOMs intact bilaterally and conjunctivae normal Neck full ROM Chest inspection of chest normal Resp normal respiratory effort, normal air movement, no use of accessory muscles and clear to auscultation bilaterally Cardio no murmurs and peripheral pulses 2+ throughout Cardio Narrative: Tachycardic, regular rhythm. GI normal to inspection, nondistended, normoactive bowel sounds, soft to palpation,non-tender and non-distended Back/Spine normal ROM Extremity normal to inspection and no pedal edema Skin no rashes or lesions noted Neuro oriented x3 and no focal motor deficits Neuro Narrative: Generalized weakness noted. Speech: speech normal Psych mental status grossly normal Lab / Micro Data 06/14/24 07:05 06/14/24 07:05 Labs: Laboratory Results - last 24 hr 06/13/24 20:51: WBC 16.7 H, RBC 4.50, Hgb 12.9, Hct 37.5, MCV 83.3, MCH 28.7, MCHC 34.4, RDW Std Deviation 37.9, RDW Coeff of Carroll 12.9, Plt Count 368, MPV 10.0, Immature Gran % (Auto) 0.500, Neut % (Auto) 87.5 H, Lymph % (Auto) 4.3 L, [place] % (Auto) 7.0, Eos % (Auto) 0.4, Baso % (Auto) 0.3, Absolute Neuts (auto) 14.7 H, Absolute Lymphs (auto) 0.72 L, Nucleated RBC % 0, Sodium 133, Potassium 3.3, Chloride 96 L, Carbon Dioxide 24.1, Anion Gap 13, BUN 13, Creatinine 0.61 L, Est GFR (MDRD) Non-Af 91, BUN/Creatinine Ratio 21.6 H, Glucose 173 H, Calcium 9.3, Magnesium 1.7 06/14/24 07:05: WBC 17.4 H, RBC 3.94 L, Hgb 11.2 L, Hct 33.3 L, MCV 84.5, MCH 28.4, MCHC 33.6, RDW Std Deviation 39.0, RDW Coeff of Carroll 12.8, Plt Count 344, MPV 9.9, Sodium 139, Potassium 3.0 L, Chloride 104, Carbon Dioxide 25.6, Anion Gap 10, BUN 7, Creatinine 0.53 L, Estim Creat Clear Calc 56.51, Est GFR (MDRD) Non-Af 94, BUN/Creatinine Ratio 13.2, Glucose 131 H, Calcium 8.7 Assessment & Plan Assessment/Plan (1) Generalized weakness: PLAN: Plan Patient is a 78-year-old female who presented to [facility] ED on 06/13/2024 with worsening weakness over past 4 to 5 days. Apparently there was concern for malignancy: Previous CT scan abdomen and pelvis displayed focal irregular wall thickening of cecum and ascending colon with luminal narrowing suggestive of neoplasm. There is similar finding in December 2020 but at that time patient refused for colonoscopy. There are some notices that the patient had a colonoscopy approximately 3 weeks ago and it was normal. However we have other concerning findings include right expansile lytic lesion of right acromionwith associated pathologic fracture, mildly enlarged subcarinal and left hilar lymph nodes, L4 vertebral body 1.4 cm sclerotic lesion, and prominent retroperitoneal and right lower quadrant lymph nodes. If patient has not had a colonoscopy she should undergo colonoscopy. Charges/Coding Visit Charges Inpatient E&M: 39022 Init Hosp L3 06/15/24 1801 <Electronically signed by Stanislaw Naylor DO> Cosigner Signature (if applicable): CC: Dr. Art Rivas, DO; Dr. Cole Cardona DO~ Signed [facility] Work Phone: 1(116) 866-949904-22-[address] [facility] Medical Records Department [address] [place] [address] Consultation - GI 06/14/24 1744 MR#: [id number] Acct: [id number] Name: SCOTT TALBERT Rep #:[id number] : 1945 78 From: Stanislaw Naylor DO PCP: Dr. Cole Cardona DO Status:AD M IN Location: [facility]3 [id number] HPI Consult Data Date of Consult: 06/14/24 HPI Narrative Reason for Consultation: Abnormal CT scan HPI Narrative: SCOTT TALBERT, is a 78 F who presented to [facility] ED on 06/13/2024 with worsening weakness. Patient was seen in the ED on 06/12 for similar concern. She was also reporting intermittent left-sided flank pain at that time. Was noted to have WBC count of 16, neutrophil predominant but CBC and BMP were otherwise unremarkable. UA was mildly infectious appearing. She was tachycardic to the 130s and had low-grade fever to 99.2F, but tachycardia resolved with IV fluid resuscitation. CT abdomen pelvis with IV contrast showed no pyelonephritis, did show focal irregular wall thickening of the cecum and ascending colon concerning for malignancy versus focal colitis, prominent retroperitoneal lymph nodes and rightlower quadrant lymph nodes, and suspected filling defects in the leftlower lobepulmonary arteries concerning for PE with left lower lobe consolidation. CTA chest showedno PE, did show densely consolidated large portion of left lower lobe with airway obstruction/opacification concerning for possible infectious/inflammatory process versus neoplastic process; also showed an expansile lytic lesion of the right acromion with areas of cortical disruption concerning forneoplastic process with associated pathologic fracture, as well as mildly enlarged subcarinal and left hilar lymph nodes. Importantly, on further chart review patient was hospitalized at [facility] in December, see note from 01/04 for further details. In short, she was on Coumadin for history of PE and presented there with rectal bleeding and was found to have supratherapeutic INR. CT abdomen pelvis showed noactive GI bleedbut did show thickening of cecum and proximal ascending colon. GI recommended colonoscopy but patient declined this. 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 Pulmonology recommended outpatient bronchos copy, and patient notably just completed this in early May and biopsy was negative for malignancy. Her GI bleed resolved with improved INR and she was opted to be discharged home on Eliquis. [facility] Medical History DVT (deep venous thrombosis) Pneumonia Osteoarthritis High triglycerides High cholesterol Arthritis Home Medications ?Medication ?Instructions ?Recorded ?Last Taken ?Type blood pressure monitor #1 ea 06/02/23 Unknown Rx venlafaxine 37.5 mg tablet 37.5 mg PO QDAY #90 tabs Unknown Rx atorvastatin 40 mg tablet See Rx Instructions .Route 0 08/19/23 Unknown Rx .COMPLEX #90 tabs chlordiazepoxide HCl 5 mg capsule 10 mg (2 x 5 mg) PO Q12H PRN 12/24/23 Unknown Rx anxiety #60 caps apixaban 2.5 mg tablet (Eliquis) 2.5 mg PO BID #180 ta bs 02/04/24 Unknown Rx amlodipine 5 mg tablet 5 mg PO DAILY #90 tabs 03/23 Unknown Rx betamethasone dipropionate 0.05 % 1 applic topical EVAN LY PRN rash 03/23/24 Unknown Rx topical cream #45 grams ferrous sulfate 325 mg (65 mg 650 mg PO QDAY 03/23/24 Unknown History iron) tablet (Feosol) handicap placard #1 ea 05/26/24 Unknown Rx cephalexin 250 mg capsule 250 mg PO 4X/DAY 06/11/24 Un known History meclizine 25 mg tablet 25 mg PO BID PRN dizziness 0 06/12/24 Unknown History Allergy/AdvReac Type Severity Reaction Status Date / Time prednisone Allergy Unknown Rash Verified 06/13/24 19:49 diphenhydramine (From Allergy Rash Verified 06/13/24 19:49 Benadryl) Influenza Virus Vaccines AdvReac Intermediate Other Verified 06/14/24 00:41 (flu vaccine) Family History Mother Arthritis Brother Myocardial infarction Father Heart disease Surgical History History of bilateral knee replacement History of umbilical hernia repair History of tonsillectomy Social History Smoking Status: Never smoker alcohol intake: never substance use type: does not use what type of physical activity do you participate in: swimming ROS Constitutional Constitutional: Denies fatigue, fever(s), poor appetite, weight gain or weight loss Gastrointestinal Gastrointestinal: Denies belching, bloating, change in bowel habits, change in stool character, chewing difficulty, coffee ground emesis, constipation, cramping, diarrhea, dyspepsia, dysphagia, earlysatiety, excessive flatus, fecalincontinence, heartburn, hematemesis, hematochezia, hemorrhoids, loose stools, melena, nausea, odynophagia, rectal bleeding, tenesmus, vomiting or weight changes Physical Exam Const alert, oriented x3 and no apparent distress Constitutional Narrative: Pleasant elderly female, class I obesity, mildly fatigued appearing but otherwise sitting back comfortably in bed, conversing normally, in no acute distress. General Appearance: cooperative and comfortable HEENT normocephalic, head/scalp atraumatic, hearing grossly normal bilaterally, nasal mucous membranes and turbinates normal and moist oral mucous membranes Eyes PERRL, EOMs intact bilaterally and conjunctivae normal Neck full ROM Chest inspection of chest normal Resp normal respiratory effort, normal air movement, no use of accessory muscles and clear to auscultation bilaterally Cardio no murmurs and peripheral pulses 2+ throughout Cardio Narrative: Tachycardic, regular rhythm. GI normal to inspection, nondistended, normoactive bowel sounds, soft to palpation,non-tender and non-distended Back/Spine normal ROM Extremity normal to inspection and no pedal edema Skin no rashes or lesions noted Neuro oriented x3 and no focal motor deficits Neuro Narrative: Generalized weakness noted. Speech: speech normal Psych mental status grossly normal Lab / Micro Data 06/14/24 07:05 06/14/24 07:05 Labs: Laboratory Results - last 24 hr 06/13/24 20:51: WBC 16.7 H, RBC 4.50, Hgb 12.9, Hct 37.5, MCV 83.3, MCH 28.7, MCHC 34.4, RDW Std Deviation 37.9, RDW Coeff of Carroll 12.9, Plt Count 368, MPV 10.0, Immature Gran % (Auto) 0.500, Neut % (Auto) 87.5 H, Lymph % (Auto) 4.3 L, [place] % (Auto) 7.0, Eos % (Auto) 0.4, Baso % (Auto) 0.3, AbsoluteNeuts (auto) 14.7 H, Absolute Lymphs (auto) 0.72 L, Nucleated RBC % 0, Sodium 133, Potassium 3.3, Chloride 96 L, Carbon Dioxide 24.1, Anion Gap 13, BUN 13, Creatinine 0.61 L, Est GFR (MDRD) Non-Af 91, BUN/Creatinine Ratio 21.6 H, Glucose 173 H, Calcium 9.3, Magnesium 1.7 06/14/24 07:05: WBC 17.4 H, RBC 3.94 L, Hgb 11.2 L, Hct 33.3 L, MCV 84.5, MCH 28.4, MCHC 33.6, RDW Std Deviation 39.0, RDW Coeff of [place] 12.8, Plt Count 344, MPV 9.9, Sodium 139, Potassium 3.0 L, Chloride 104, Carbon Dioxide 25.6, Anion Gap 10, BUN 7, Creatinine 0.53 L, Estim Creat Clear Calc 56.51,Est GFR (MDRD) Non-Af 94, BUN/Creatinine Ratio 13.2, Glucose 131 H, Calcium 8.7 Assessment & Plan Assessment/Plan (1) Generalized weakness: PLAN: Plan Patient is a 78-year-old female who presented to [facility] ED on 06/13/2024 with worsening weakness over past 4 to 5 days. Apparently there was concern for malignancy: Previous CT scan abdomen and pelvis displayed focal irregular wall thickening of cecum and ascending colon with luminal narrowing suggestive of neoplasm. There is similar finding in December 2020 but at that time patient refused for colonoscopy. There are some notices that the patient had a colonoscopy approximately 3 weeks ago and it was normal. However we have other concerning findings include right expansile lytic lesion of right acromionwith associated pathologic fracture, mildly enlarged subcarinal and left hilar lymph nodes, L4 vertebral body 1.4 cm sclerotic lesion, and prominent retroperitoneal and right lower quadrant lymph nodes. If patient has not had a colonoscopy she should undergo colonoscopy. Charges/Coding Visit Charges Inpatient E&M: 70771 Init Hosp L3 06/15/24 1801 Cosigner Signature (if applicable): CC: Dr. Art Rivas, DO; Dr. Cole Cardona, DO~ Signed [facility]04-22-2025 Progress note Author Curt Henderson [facility] Note Date/Time June 15, 2024 3:2 4pm [facility] Medical Records Department [address] [place] [address] Progress Note - Hospitalist 06/15/24 1520 MR#: [id number] Acct: [id number] Name: SCOTT TALBERT Rep #:[id number] : 1945 78 From: Curt Ann PCP: Dr. Cole Cardona, Status:AD M IN Location: [place] [id number] Reason for Visit Reason for Visit: Diagnoses Weakness (06/14/24) Objective Data Objective Data Vital Signs: Vital Signs Temp Pulse Resp BP Pulse Ox O2 Del Method O2 Flow Rate 99.2 F H 92 18 113/68 100 Room Air 2 06/15/24 08:49 06/15/24 08:49 06/15/24 08:49 06/15/24 08:49 06/15/24 08:49 06/15/24 09:06 06/15/24 05:41 Oxygen Flow Rate (L/min) 2 Oxygen Delivery Method Room Air Weight: 180 lb 5.41 oz Body Mass Index (BMI) 33.0 Intake & Output: Intake and Output for Last 24 Hours 06/13/24 06/14/24 06/15/24 23:59 23:59 23:59 Intake Total 1999 1895 / 1895 815 / 815 Output Total 500 / 500 Balance 1999 1395 / 1395 815 / 815 Lab / Micro Data 06/14/24 07:05 06/14/24 07:05 Labs: Laboratory Results - last 24 hr 06/13/24 07:15: Ur Total Protein 24 Hr Cancelled, Urine Total Protein Cancelled,Urine Albumin Cancelled, U Llvid-0-Gxcgyvat Cancelled, U Yqpmk-5-Lmhyaras Cancelled, U Beta Globulin Cancelled, U Gamma Globulin Cancelled, U PEP M-Bill Cancelled, U PEP M-Bill 24 Hr Cancelled, Urine Immunofixation Cancelled, Urine TOYIN Interpret Cancelled 06/13/24 12:07: U Random Total Protein 32.6 H, Urine Creatinine 76.60, Protein/Creatinin Ratio 426 H 06/15/24 13:35: Vancomycin Trough 6.3 Physical Exam Narrative Seen and examined. She refused for colonoscopy to me and Dr. Friend. She states she still has generalized weakness and wants to go to SNF. She did not had low urinary tract symptoms but was given antibiotic on the basis of abnormal UA. She did not feel better. On chart review it seems patient has right colonic thickening/mass but patient refused for colonoscopy in the past. She also had colonoscopy about 3 weeks agoand from the note it seems pathology was negative. Denies fever or chills Physical exam General: Alert, Oriented x3, Cooperative. BMI 33.0 kg/m? HEENT: Atraumatic, PERRLA, EOMI, Normocephalic Oral: No Gingival or Mucosal Lesions/ Ulcerations Neck: Supple, No JVD, Negative Carotid Bruits Chest wall/Lungs: Air entry diminished, more in left lung base no crepitation/rhonchi Cardiovascular: Regular rate, Regular Rhythm, Normal S1, Normal S2, No M/G/R Abdomen: Bowel Sounds Present, Soft, Non Tender, Non-Distended : No dysuria. No renal angle tenderness. No suprapubic tenderness. Extremities: No edema, Capillary Refill Less than 3 Seconds Skin: No rashes, No breakdown Musculoskeletal: No Tenderness to Palpation of Joints or Extremities. Muscle strength 5/5 at knees and hip joints. Neurological: Cranial nerves II-XII grossly intact, DTR 2+/4. No acute focal neurological deficit. Psych/Mental Status: Normal Affect, Appropriate. Assessment & Plan Assessment/Plan (1) Generalized weakness: PLAN: Plan Patient is a 78-year-old female who presented to [facility] ED on 06/13/2024 with worsening weakness over past 4 to 5 days. She is having difficulty in getting up and ambulate. She was given antibiotic [facility] for presumed UTI but she did not get better. 1. Acute on chronic debility ? Admit under observation status to [facility]. PT/OT/case management consulted. On exam patient with good muscle strength of hip and knee joints. Has mild gaitimbalance sometimes. Probably from chronic disease including osteoarthritis with suspected underlying malignancy 2. Concern for postobstructive pneumonia, ? CTA chest showed dense left lower lobe consolidation with concern for possiblepostobstructive pneumonia; see HPI for further details on this. UA mildly infectious appearing. Urine culture from 06/11 growing only 11 K -25,000 gram- negative rods therefore UTI ruled out. she has been treated with Keflex since for UTI without much improvement. Patient did not have IV and vancomycin. Air Brake Man consulted. 06/15: [facility] she states he needs to go to custodial to get her to go home therefore could not be discharged. 3. Concern for malignancy: Previous CT scan shows focal irregular wall thickening of cecum and ascending colon with luminal narrowing suggestive of neoplasm. There is similar finding in December 2020 but at that time patientrefused for colonoscopy. Patient continues to have normal stools and reports no right-sided abdominal pain. Other concerning findings include right expansile lytic lesion of right acromion with associated pathologic fracture, mildly enlarged subcarinal and left hilar lymph nodes, L4 vertebral body 1.4 cm sclerotic lesion, and prominentretroperitoneal and right lower quadrant lymph nodes. GI consulted 06/15: Patient refused for colonoscopy. She was upset when she was started on clear liquid yesterday. 4. Persistent sinus tachycardia ? Sinus tachycardia to the 120s to low 130s in the ED. improved with IV fluid 5. Left lower lobe consolidative mass ? See HPI for further details. In short, was found to have consolidative mass in December and recently had bronchoscopy with biopsy done in early May with biopsy results negative for malignancy. Chronic medical conditions: ? Class I obesity: BMI 33 on admit. Complicates hospital course, care and prognosis. ? Hypertension: Continue home amlodipine. ? Hyperlipidemia: Continue home statin. ? Anxiety/depression: Continue home venlafaxine and chlordiazepoxide twice dailyas needed. ? 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 ? Recent GI bleed: Had GI bleed in December that was suspected secondary to supratherapeutic INR while patient was on warfarin. Patient refused EGD or colonoscopy. GI bleed resolved with improvement in INR and hemoglobin has sinceimproved. DVT prophylaxis: Not indicated, on Eliquis CODE STATUS: DNR CCA, DNI Charges/Coding Visit Charges Inpatient E&M: 66561 Subs Hosp L2 06/15/24 0624 <Electronically signed by Curt Henderson MD> Cosigner Signature (if applicable): CC: ~ Signed [facility] Work Phone: 1(876) 819-829504-22-2025 Consult note Author Raheel Isbell [facility] Note Date/Time June 15, 2024 3:2 0pm [facility] Medical Records Department [address] [place] [address] Pharmacokinetic/Renal -Consult 06/15/24 1442 MR#: [id number] Acct: [id number] Name: SCOTT TALBERT Rep #:[id number] : 1945 78 From: Raheel mar PCP: Dr. Cole Cardona, DO Status:AD M IN Location: [place] [id number] Consult Antibiotic Management Pharmacy has been consulted to manage selected antibiotic: Vancomycin Type of Intervention Type of Consult: Follow-up Prior Doses of Antibiotics Prior Doses of Antibiotics Received/Current Regimen: current dose is vanc 750mg IV q12h Labs Labs: Sodium 139 mmol/L (133-145) 06/14/24 07:05 Potassium 3.0 mmol/L (3.3-5.1) L 06/14/24 07:05 Chloride 104 mmol/L (98-108) 06/14/24 07:05 Carbon Dioxide 25.6 mmol/L (21.0-32.0) 06/14/24 07:05 Anion Gap 10 (5-15) 06/14/24 07:05 BUN 7 mg/dL (4-19) 06/14/24 07:05 Creatinine 0.53 mg/dL (0.70-1.20) L 06/14/24 07:05 Est GFR (MDRD) Non-Af 94 (>60) 06/14/24 07:05 BUN/Creatinine Ratio 13.2 RATIO (10-20) 06/14/24 07:05 Glucose 131 mg/dL (70-99) H 06/14/24 07:05 Vancomycin Trough 6.3 ug/mL (5.0-15.0) 06/15/24 13:35 Dosing Weight Weight used for dosin lb 5.41 oz Estimated Creatinine Clearance Estimated Creatinine Clearance: 56.5ml/min Goal Trough Goal Trough: 15-20 mcg/mL Pharmacy Plan for Drug Dosing Pharmacy Plan for Drug Dosing: The vanc trough drawn at 13:35 today (drawn approximately 11 hours after the last dose) was 6.3mcg/ml. This is well below goal range so will increase dose to 1500mg IV q12h. Hesitant to increase the dose further at this point since the patient is 78 years old and has only had a dose of 2000mg and two doses of 750mg so far. Will check another trough before the 4th dose of 1500mg. Pharmacy Service will continue to monitor and adjust dosing as required. Follow-Up Labs Follow-Up Labs: Trough: Vancomycin Date/Time Labs Ordered Labs to be done on [date and time ordered]: 06/17/24 02:30 06/15/24 1447 <Electronically signed by Raheel skelton> Date _ Raheel Isbell 06/15/24 1520 <Electronically signed by Curt Henderson MD> Cosigner Signature (if applicable): Date Curt Hednerson MD CC: ~ Signed [facility] Work Phone: 1(252) 767-592804-22-2025 Progress note [facility] Medical Records Department [address] [place] [address] Progress Note - Hospitalist 06/15/24 1520 MR#: [id number] Acct: [id number] Name: SCOTT TALBERT Rep #:[id number] : 1945 78 From: Curt Ann PCP: Dr. Cole Cardona, DO Status:AD M IN Location: [facility] OC349-5 Reason for Visit Reason for Visit: Diagnoses Weakness (06/14/24) Objective Data Objective Data Vital Signs: Vital Signs Temp Pulse Resp BP Pulse Ox O2 Del Method O2 Flow Rate 99.2 F H 92 18 113/68 100 Room Air 2 06/15/24 08:49 06/15/24 08:49 06/15/24 08:49 06/15/24 08:49 06/15/24 08:49 06/15/24 09:06 06/15/24 05:41 Oxygen Flow Rate (L/min) 2 Oxygen Delivery Method Room Air Weight: 180 lb 5.41 oz Body Mass Index (BMI) 33.0 Intake & Output: Intake and Output for Last 24 Hours 06/13/24 06/14/24 06/15/24 23:59 23:59 23:59 Intake Total 1999 / 0 1895 / 1895 815 / 815 Output Total 500 / 500 Balance 1999 / 1750 1395 / 1395 815 / 815 Lab / Micro Data 06/14/24 07:05 06/14/24 07:05 Labs: Laboratory Results - last 24 hr 06/13/24 07:15: Ur Total Protein 24 Hr Cancelled, Urine Total Protein Cancelled,Urine Albumin Cancelled, U Tfutf-6-Xoeokwbf Cancelled, U Romvs-9-Wibejsba Cancelled, U Beta Globulin Cancelled, U GammaGlobulin Cancelled, U PEP M-Bill Cancelled, U PEP M-Bill 24 Hr Cancelled, Urine Immunofixation Cancelled, Urine TOYIN Interpret Cancelled 06/13/24 12:07: U Random Total Protein 32.6 H, Urine Creatinine 76.60, Protein/Creatinin Ratio 426 H 06/15/24 13:35: Vancomycin Trough 6.3 Physical Exam Narrative Seen and examined. She refused for colonoscopy to me and Dr. Friend. She states she still has generalized weakness and wants to go to SNF. She did not had low urinary tract symptoms but was given antibiotic on the basis of abnormal UA. She did not feel better. On chart review it seems patient has right colonic thickening/mass but patient refused for colonoscopy in the past. She also had colonoscopy about 3 weeks agoand from the note it seems pathology was negative. Denies fever or chills Physical exam General: Alert, Oriented x3, Cooperative. BMI 33.0 kg/m? HEENT: Atraumatic, PERRLA, EOMI, Normocephalic Oral: No Gingival or Mucosal Lesions/ Ulcerations Neck: Supple, No JVD, Negative Carotid Bruits Chest wall/Lungs: Air entry diminished, more in left lung base no crepitation/rhonchi Cardiovascular: Regular rate, Regular Rhythm, Normal S1, Normal S2, No M/G/R Abdomen: Bowel Sounds Present, Soft, Non Tender, Non-Distended : No dysuria. No renal angle tenderness. No suprapubic tenderness. Extremities: No edema, Capillary Refill Less than 3 Seconds Skin: No rashes, No breakdown Musculoskeletal: No Tenderness to Palpation of Joints or Extremities. Muscle strength 5/5 at knees and hip joints. Neurological: Cranial nerves II-XII grossly intact, DTR 2+/4. No acute focal neurological deficit. Psych/Mental Status: Normal Affect, Appropriate. Assessment & Plan Assessment/Plan (1) Generalized weakness: PLAN: Plan Patient is a 78-year-old female who presented to [facility] ED on 06/13/2024 with worsening weakness over past 4 to 5 days. She is having difficulty in getting up and [facility]. [facility] not [facility]. 1. Acute on chronic debility ? Admit under observation status to [facility]. PT/OT/case management consulted. On exam patient with good muscle strength of hip and knee joints. Has mild gaitimbalance sometimes. Probably from chronicdisease including osteoarthritis with suspected underlying malignancy 2. Concern for postobstructive pneumonia, ? CTA chest showed dense left lower lobe consolidation with concern for possiblepostobstructive pneumonia; see HPI for further details on this. UA mildly infectious appearing. Urine culture from 06/11growing only 11 K -25,000 gram-negative rods therefore UTI ruled out. she has been treated with Keflex since for UTI without much improvement. Patient did not have IV and vancomycin. Air Brake Man consulted. 4/22: [facility] but she states he needs to go to custodial to get her to go home therefore could not be discharged. 3. Concern for malignancy: Previous CT scan abdomen/ shows focal irregular wall thickening of cecum and ascending colon with luminal narrowing suggestive of neoplasm. There is similar finding in December 2020 but at that time patientrefused for colonoscopy. Patient continues to have normal stools and reports no right-sided abdominal pain. Other concerningfindings include right expansile lytic lesion of right acromion with associated pathologic fracture, mildly enlarged subcarinal and left hilar lymph nodes, L4 vertebral body 1.4 cm sclerotic lesion, and prominentretroperitoneal and right lower quadrant lymph nodes. GI consulted 06/15: Patient refused for colonoscopy. She was upset when she was started on clear liquid yesterday. 4. Persistent sinus tachycardia ? Sinus tachycardia to the 120s to low 130s in the ED. improved with IV fluid 5. Left lower lobe consolidative mass ? See HPI for further details. In short, was found to have consolidative mass in December and recently had bronchoscopy with biopsy done in early May with biopsy results negative for malignancy. Chronic medical conditions: ? Class I obesity: BMI 33 on admit. Complicates hospital course, care and prognosis. ? Hypertension: Continue home amlodipine. ? Hyperlipidemia: Continue home statin. ? Anxiety/depression: Continue home venlafaxine and chlordiazepoxide twice dailyas needed. ? 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 ? Recent GI bleed: Had GI bleed in December that was suspected secondary to supratherapeutic INR while patient was on warfarin. Patient refused EGD or colonoscopy. GI bleed resolved with improvement in INR and hemoglobin has sinceimproved. DVT prophylaxis: Not indicated, on Eliquis CODE STATUS: DNR CCA, DNI Charges/Coding Visit Charges Inpatient E&M: 74682 Subs Hosp L2 06/15/24 1525 Cosigner Signature (if applicable): CC: ~ Signed [facility]04-22-2025 Consult note [facility] Medical Records Department [address] [place] [address] Pharmacokinetic/Renal -Consult 06/15/24 1442 MR#: [id number] Acct: [id number] Name: SCOTT TALBERT Rep #:[id number] : 1945 78 From: Raheel mar PCP: Dr. Cole Cardona, DO Status:AD M IN Location: [facility] [id number] Consult Antibiotic Management Pharmacy has been consulted to manage selected antibiotic: Vancomycin Type of Intervention Type of Consult: Follow-up Prior Doses of Antibiotics Prior Doses of Antibiotics Received/Current Regimen: current dose is vanc 750mg IV q12h Labs Labs: Sodium 139 mmol/L (133-145) 06/14/24 07:05 Potassium 3.0 mmol/L (3.3-5.1) L 06/14/24 07:05 Chloride 104 mmol/L (98-108) 06/14/24 07:05 Carbon Dioxide 25.6 mmol/L (21.0-32.0) 06/14/24 07:05 Anion Gap 10 (5-15) 06/14/24 07:05 BUN 7 mg/dL (4-19) 06/14/24 07:05 Creatinine 0.53 mg/dL (0.70-1.20) L 06/14/24 07:05 Est GFR (MDRD) Non-Af 94 (>60) 06/14/24 07:05 BUN/Creatinine Ratio 13.2 RATIO (10-20) 06/14/24 07:05 Glucose 131 mg/dL (70-99) H 06/14/24 07:05 Vancomycin Trough 6.3 ug/mL (5.0-15.0) 06/15/24 13:35 Dosing Weight Weight used for dosin lb 5.41 oz Estimated Creatinine Clearance Estimated Creatinine Clearance: 56.5ml/min Goal Trough Goal Trough: 15-20 mcg/mL Pharmacy Plan for Drug Dosing Pharmacy Plan for Drug Dosing: The vanc trough drawn at 13:35 today (drawn approximately 11 hours after the last dose) was 6.3mcg/ml. This is well below goal range so will increase dose to 1500mg IV q12h. Hesitant to increase the dose further at this point since the patient is 78 years old and has only had a dose of 2000mg and two doses of 750mg so far. Will check another trough before the 4th dose of 1500mg. Pharmacy Service will continue to monitor and adjust dosing as required. Follow-Up Labs Follow-Up Labs: Trough: Vancomycin Date/Time Labs Ordered Labs to be done on [date and time ordered]: 06/17/24 02:30 06/15/24 1447 erg> Date _ Raheel Cuongjulian 06/15/24 1520 MD> Cosigner Signature (if applicable): Date Curt Henderson MD CC: ~ Signed [facility]04-21-2025 Evaluation note* Diagnosis Onset Date Resolution Status Admit Date Generalized weakness resolved Apri l 2024 11:35am Malignant cancer cells acute Ap ril 2024 2:35pm Metastasis to bone of unknow n primary acute June 23, 2024 2:35pm Anxiety acute June 30, 2024 6:41pm BPPV (benign paroxysmal positional vertigo) acute June 30 6:41pm Debility acute June 30, 2024 6:41pm DVT (deep venous thrombosis) acute June 30, 2024 6:41pm Essential (primary) hypertension acute June 30, 2024 6: 41pm Hyperlipidemia, unspecified acute June 30, 2024 6:41pm Iron deficiency anemia acute 2024 6:41pm Major depression acute June 30, 2024 6:41pm Metastasis to bone of unknow n primary acute June 30, 2024 6: 41pm Rash resolved June 30, 2024 6:41pm Metastasis to bone of unknow n primary acute July 28, 2024 2 :26pm Disseminated cancer acute August 16, 2024 10:12am Metastasis to bone of unknow n primary acute August 24, 2024 2 :10pm [facility] [facility] Work Phone: 1([phone]) 578-357104-21-2025 Evaluation note* Diagnosis Onset Date Resolution Status Admit Date Generalized weakness resolved Apri l 2024 11:35am Malignant cancer cells acute Ap ril 2024 2:35pm Metastasis to bone of unknow n primary acute June 23, 2024 2:35pm Anxiety acute June 30, 2024 6:41pm BPPV (benign paroxysmal positional vertigo) acute June 30 6:41pm Debility acute June 30, 2024 6:41pm DVT (deep venous thrombosis) acute June 30, 2024 6:41pm Essential (primary) hypertension acute June 30, 2024 6: 41pm Hyperlipidemia, unspecified acute June 30, 2024 6:41pm Iron deficiency anemia acute Ma y 2024 6:41pm Major depression acute June 30, 2024 6:41pm Metastasis to bone of unknow n primary acute June 30, 2024 6: 41pm Rash resolved June 30, 2024 6:41pm Metastasis to bone of unknow n primary acute July 28, 2024 2 :26pm Disseminated cancer acute August 16, 2024 10:12am Metastasis to bone of unknow n primary acute August 24, 2024 2 :10pm Disseminated cancer acute September 22, 2024 12:57pm Metastasis to bone of unknow n primary acute September 22, 2024 1:22pm [facility] [facility] Work Phone: 1([phone]) 360-885604-21-2025 Evaluation note* Diagnosis Onset Date Resolution Status Admit Date Generalized weakness resolved Apri l 2024 11:35am Malignant cancer cells acute Ap 2024 2:35pm Metastasis to bone of unknow n primary acute June 23, 2024 2:35pm Anxiety acute June 30, 2024 6:41pm BPPV (benign paroxysmal positional vertigo) acute June 30 6:41pm Debility acute June 30, 2024 6:41pm DVT (deep venous thrombosis) acute June 30, 2024 6:41pm Essential (primary) hypertension acute June 30, 2024 6: 41pm Hyperlipidemia, unspecified acute June 30, 2024 6:41pm Iron deficiency anemia acute Ma y 2024 6:41pm Major depression acute June 30, 2024 6:41pm Metastasis to bone of unknow n primary acute June 30, 2024 6: 41pm Rash resolved June 30, 2024 6:41pm Metastasis to bone of unknow n primary acute July 28, 2024 2 :26pm Disseminated cancer acute August 16, 2024 10:12am Metastasis to bone of unknow n primary acute August 24, 2024 2 :10pm Disseminated cancer acute September 22, 2024 12:57pm Metastasis to bone of unknow n primary acute September 22, 2024 1:22pm Metastasis to bone of unknow n primary acute September 29, 2024 12:56pm [place] [employer] [facility] Work Phone: 1(997) 780-502204-21-2025 Progress note Author Curt Henderson [facility] Note Date/Time June 14, 2024 10: 54am [facility] Medical Records Department [address] [place] [address] Progress Note - Hospitalist 06/14/24 0933 MR#: [id number] Acct: [id number] Name: SCOTT TALBERT Rep #:[id number] : 1945 78 From: Curt Ann PCP: Dr. Cole Cardona, DO Status:AD M PAT Location: [place] [address] Reason for Visit Reason for Visit: Diagnoses Weakness (06/13/24) Objective Data Objective Data Vital Signs: Vital Signs Temp Pulse Resp BP Pulse Ox O2 Del Method O2 Flow Rate 97.3 F L 87 18 108/64 98 Nasal Cannula 2 06/14/24 08:05 06/14/24 08:05 06/14/24 08:05 06/14/24 08:05 06/14/24 09:12 06/14/24 09:12 06/14/24 09:12 Oxygen Flow Rate (L/min) 2 Oxygen Delivery Method Nasal Cannula Weight: 180 lb 5.41 oz Body Mass Index (BMI) 33.0 Intake & Output: Intake and Output for Last 24 Hours 06/12/24 06/13/24 06/14/24 23:59 23:59 23:59 Intake Total 1999 1040 / 1040 Output Total 500 / 500 Balance 1999 540 / 540 Lab / Micro Data 06/14/24 07:05 06/14/24 07:05 Labs: Laboratory Results - last 24 hr 06/13/24 20:51: WBC 16.7 H, RBC 4.50, Hgb 12.9, Hct 37.5, MCV 83.3, MCH 28.7, MCHC 34.4, RDW Std Deviation 37.9, RDW Coeff of Carroll 12.9, Plt Count 368, MPV 10.0, Immature Gran % (Auto) 0.500, Neut % (Auto) 87.5 H, Lymph % (Auto) 4.3 L, [place] % (Auto) 7.0, Eos % (Auto) 0.4, Baso % (Auto) 0.3, Absolute Neuts (auto) 14.7 H, Absolute Lymphs (auto) 0.72 L, Nucleated RBC % 0, Sodium 133, Potassium 3.3, Chloride 96 L, Carbon Dioxide 24.1, Anion Gap 13, BUN 13, Creatinine 0.61 L, Est GFR (MDRD) Non-Af 91, BUN/Creatinine Ratio 21.6 H, Glucose 173 H, Calcium 9.3, Magnesium 1.7 06/14/24 07:05: WBC 17.4 H, RBC 3.94 L, Hgb 11.2 L, Hct 33.3 L, MCV 84.5, MCH 28.4, MCHC 33.6, RDW Std Deviation 39.0, RDW Coeff of Carroll 12.8, Plt Count 344, MPV 9.9, Sodium 139, Potassium 3.0 L, Chloride 104, Carbon Dioxide 25.6, Anion Gap 10, BUN 7, Creatinine 0.53 L, Estim Creat Clear Calc 56.51, Est GFR (MDRD) Non-Af 94, BUN/Creatinine Ratio 13.2, Glucose 131 H, Calcium 8.7 Physical Exam Narrative Seen and examined. Patient states she is feeling generalized weakness and had 3 ED visits. She didnot had low urinary tract symptoms but was given antibiotic on the basis of abnormal UA. She did not feel better. On chart review it seems patient has right colonic thickening/mass but patient refused for colonoscopy in the past. She also had colonoscopy about 3 weeks agoand from the note it seems pathology was negative. Denies fever or chills Physical exam General: Alert, Oriented x3, Cooperative. BMI 33.0 kg/m? HEENT: Atraumatic, PERRLA, EOMI, Normocephalic Oral: No Gingival or Mucosal Lesions/ Ulcerations Neck: Supple, No JVD, Negative Carotid Bruits Chest wall/Lungs: Air entry diminished, more in left lung base no crepitation/rhonchi Cardiovascular: Regular rate, Regular Rhythm, Normal S1, Normal S2, No M/G/R Abdomen: Bowel Sounds Present, Soft, Non Tender, Non-Distended : No dysuria. No renal angle tenderness. No suprapubic tenderness. Extremities: No edema, Capillary Refill Less than 3 Seconds Skin: No rashes, No breakdown Musculoskeletal: No Tenderness to Palpation of Joints or Extremities. Muscle strength 5/5 at knees and hip joints. Neurological: Cranial nerves II-XII grossly intact, DTR 2+/4. No acute focal neurological deficit. Psych/Mental Status: Normal Affect, Appropriate. Assessment & Plan Assessment/Plan (1) Generalized weakness: PLAN: Plan Patient is a 78-year-old female who presented to [facility] ED on 06/13/2024 with worsening weakness over past 4 to 5 days. She is having difficulty in getting up and ambulate. She was given antibiotic [facility] for presumed UTI but she did not get better. 1. Acute on chronic debility ? Admit under observation status to [facility]. PT/OT/case management consulted. On exam patient with good muscle strength of hip and knee joints. Has mild gaitimbalance sometimes. Probably from chronic disease including osteoarthritis with suspected underlying malignancy 2. Concern for postobstructive pneumonia, ? CTA chest showed dense left lower lobe consolidation with concern for possiblepostobstructive pneumonia; see HPI for further details on this. UA mildly infectious appearing. Urine culture from 06/11 growing only 11 K -25,000 gram- negative rods therefore UTI ruled out. she has been treated with Keflex since for UTI without much improvement. Patient did not have IV and vancomycin. Air Brake Man consulted. 3. Concern for malignancy: Previous CT scan abdomen/ shows focal irregular wall thickening of cecum and ascending colon with luminal narrowing suggestive of neoplasm. There is similar finding in December 2020 but at that time patientrefused for colonoscopy. Patient continues to have normal stools and reports no right-sided abdominal pain. Other concerning findings include right expansile lytic lesion of right acromion with associated pathologic fracture, mildly enlarged subcarinal and left hilar lymph nodes, L4 vertebral body 1.4 cm sclerotic lesion, and prominentretroperitoneal and right lower quadrant lymph nodes. GI consulted 4. Persistent sinus tachycardia ? Sinus tachycardia to the 120s to low 130s in the ED. improved with IV fluid 5. Left lower lobe consolidative mass ? See HPI for further details. In short, was found to have consolidative mass in December and recently had bronchoscopy with biopsy done in early May with biopsy results negative for malignancy. Chronic medical conditions: ? Class I obesity: BMI 33 on admit. Complicates hospital course, care and prognosis. ? Hypertension: Continue home amlodipine. ? Hyperlipidemia: Continue home statin. ? Anxiety/depression: Continue home venlafaxine and chlordiazepoxide twice dailyas needed. ? 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 ? Recent GI bleed: Had GI bleed in December that was suspected secondary to supratherapeutic INR while patient was on warfarin. Patient refused EGD or colonoscopy. GI bleed resolved with improvement in INR and hemoglobin has sinceimproved. DVT prophylaxis: Not indicated, on Eliquis CODE STATUS: DNR CCA, DNI Charges/Coding Addendum Addendum: Total time of the visit including total time spent in counseling or coordinationof care, (more than 50% of the total time, spent in obtaining medical information from nurses and other ancillary care providers ,explaining to the patient about labs, imaging, diagnosis and management of active complex medical conditions), review of previous medical record, GI and pulmonology consult, review of labs and imaging is 35 minutes. Visit Charges Inpatient E&M: 24064 Subs Hosp L3 06/14/24 1054 <Electronically signed by Curt Henderson MD> Cosigner Signature (if applicable): CC: ~ Signed [facility] Work Phone: 1(677) 120-252604-21-[address] [facility] Medical Records Department [address] [place] [address] Progress Note - Hospitalist 06/14/24 0933 MR#: [id number] Acct: [id number] Name: SCOTT TALBERT Rep #:[id number] : 1945 78 From: Curt Ann PCP: Dr. Cole Cardona, DO Status:DAMIEN STEWART Location: [place] [id number] Reason for Visit Reason for Visit: Diagnoses Weakness (06/13/24) Objective Data Objective Data Vital Signs: Vital Signs Temp Pulse Resp BP Pulse Ox O2 Del Method O2 Flow Rate 97.3 F L 87 18 108/64 98 Nasal Cannula 2 06/14/24 08:05 06/14/24 08:05 06/14/24 08:05 06/14/24 08:05 06/14/24 09:12 06/14/24 09:12 06/14/24 09:12 Oxygen Flow Rate (L/min) 2 Oxygen Delivery Method Nasal Cannula Weight: 180 lb 5.41 oz Body Mass Index (BMI) 33.0 Intake & Output: Intake and Output for Last 24 Hours 06/12/24 06/13/24 06/14/24 23:59 23:59 23:59 Intake Total 1999 1040 / 1040 Output Total 500 / 500 Balance 1999 540 / 540 Lab / Micro Data 06/14/24 07:05 06/14/24 07:05 Labs: Laboratory Results - last 24 hr 06/13/24 20:51: WBC 16.7 H, RBC 4.50, Hgb 12.9, Hct 37.5, MCV 83.3, MCH 28.7, MCHC 34.4, RDW Std Deviation 37.9, RDW Coeff of Carroll 12.9, Plt Count 368, MPV 10.0, Immature Gran % (Auto) 0.500, Neut % (Auto) 87.5 H, Lymph % (Auto) 4.3 L, [place] % (Auto) 7.0, Eos % (Auto) 0.4, Baso % (Auto) 0.3, AbsoluteNeuts (auto) 14.7 H, Absolute Lymphs (auto) 0.72 L, Nucleated RBC % 0, Sodium 133, Potassium 3.3, Chloride 96 L, Carbon Dioxide 24.1, Anion Gap 13, BUN 13, Creatinine 0.61 L, Est GFR (MDRD) Non-Af 91, BUN/Creatinine Ratio 21.6 H, Glucose 173 H, Calcium 9.3, Magnesium 1.7 06/14/24 07:05: WBC 17.4 H, RBC 3.94 L, Hgb 11.2 L, Hct 33.3 L, MCV 84.5, MCH 28.4, MCHC 33.6, RDW Std Deviation 39.0, RDW Coeff of [place] 12.8, Plt Count 344, MPV 9.9, Sodium 139, Potassium 3.0 L, Chloride 104, Carbon Dioxide 25.6, Anion Gap 10, BUN 7, Creatinine 0.53 L, Estim Creat Clear Calc 56.51,Est GFR (MDRD) Non-Af 94, BUN/Creatinine Ratio 13.2, Glucose 131 H, Calcium 8.7 Physical Exam Narrative Seen and examined. Patient states she is feeling generalized weakness and had 3 ED visits. She didnot had low urinary tract symptoms but was given antibiotic on the basis of abnormal UA. She did not feel better. On chart review it seems patient has right colonic thickening/mass but patient refused for colonoscopy in the past. She also had colonoscopy about 3 weeks agoand from the note it seems pathology was negative. Denies fever or chills Physical exam General: Alert, Oriented x3, Cooperative. BMI 33.0 kg/m? HEENT: Atraumatic, PERRLA, EOMI, Normocephalic Oral: No Gingival or Mucosal Lesions/ Ulcerations Neck: Supple, No JVD, Negative Carotid Bruits Chest wall/Lungs: Air entry diminished, more in left lung base no crepitation/rhonchi Cardiovascular: Regular rate, Regular Rhythm, Normal S1, Normal S2, No M/G/R Abdomen: Bowel Sounds Present, Soft, Non Tender, Non-Distended : No dysuria. No renal angle tenderness. No suprapubic tenderness. Extremities: No edema, Capillary Refill Less than 3 Seconds Skin: No rashes, No breakdown Musculoskeletal: No Tenderness to Palpation of Joints or Extremities. Muscle strength 5/5 at knees and hip joints. Neurological: Cranial nerves II-XII grossly intact, DTR 2+/4. No acute focal neurological deficit. Psych/Mental Status: Normal Affect, Appropriate. Assessment & Plan Assessment/Plan (1) Generalized weakness: PLAN: Plan Patient is a 78-year-old female who presented to [facility] ED on 06/13/2024 with worsening weakness over past 4 to 5 days. She is having difficulty in getting up and ambulate. She wasgiven [facility] for presumed UTI but she did not get better. 1. Acute on chronic debility ? Admit under observation status to [facility]. PT/OT/case management consulted. On exam patient with good muscle strength of hip and knee joints. Has mild gaitimbalance sometimes. Probably from chronicdisease including osteoarthritis with suspected underlying malignancy 2. Concern for postobstructive pneumonia, ? CTA chest showed dense left lower lobe consolidation with concern for possiblepostobstructive pneumonia; see HPI for further details on this. UA mildly infectious appearing. Urine culture from 06/11growing only 11 K -25,000 gram-negative rods therefore UTI ruled out. she has been treated with Keflex since for UTI without much improvement. Patient did not have IV and vancomycin. Air Brake Man consulted. 3. Concern for malignancy: Previous CT scan shows focal irregular wall thickening of cecum and ascending colon with luminal narrowing suggestive of neoplasm. There is similar finding in December 2020 but at that time patientrefused for colonoscopy. Patient continues to have normal stools and reports no right-sided abdominal pain. Other concerningfindings include right expansile lytic lesion of right acromion with associated pathologic fracture, mildly enlarged subcarinal and left hilar lymph nodes, L4 vertebral body 1.4 cm sclerotic lesion, and prominentretroperitoneal and right lower quadrant lymph nodes. GI consulted 4. Persistent sinus tachycardia ? Sinus tachycardia to the 120s to low 130s in the ED. improved with IV fluid 5. Left lower lobe consolidative mass ? See HPI for further details. In short, was found to have consolidative mass in December and recently had bronchoscopy with biopsy done in early May with biopsy results negative for malignancy. Chronic medical conditions: ? Class I obesity: BMI 33 on admit. Complicates hospital course, care and prognosis. ? Hypertension: Continue home amlodipine. ? Hyperlipidemia: Continue home statin. ? Anxiety/depression: Continue home venlafaxine and chlordiazepoxide twice dailyas needed. ? 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 ? Recent GI bleed: Had GI bleed in December that was suspected secondary to supratherapeutic INR while patient was on warfarin. Patient refused EGD or colonoscopy. GI bleed resolved with improvement in INR and hemoglobin has sinceimproved. DVT prophylaxis: Not indicated, on Eliquis CODE STATUS: DNR CCA, DNI Charges/Coding Addendum Addendum: Total time of the visit including total time spent in counseling or coordinationof care, (more than50% of the total time, spent in obtaining medical information from nurses and other ancillary care providers ,explaining to the patient about labs, imaging, diagnosis and management of active complexmedical conditions), review of previous medical record, GI and pulmonology consult, review of labs and imaging is 35 minutes. Visit Charges Inpatient E&M: 21320 Subs Hosp L3 06/14/24 1054 Cosigner Signature (if applicable): CC: ~ Signed [facility]04-21-2025 Consult note Author Ildefonso Oglesby [facility] Note Date/Time June 14, 2024 1:5 6am [facility] Medical Records Department [address] [place] [address] Pharmacokinetic/Renal -Consult 06/14/24 0155 MR#: [id number] Acct: [id number] Name: SCOTT TALBERT Rep #:[id number] : 1945 78 From: Ildefonso Sanders od PCP: Dr. Cole Cardona, DO Status:AD M PAT Y Location: [place] [address] Consult Antibiotic Management Pharmacy has been consulted to manage selected antibiotic: Vancomycin Type of Intervention Type of Consult: New start Labs Labs: Sodium 133 mmol/L (133-145) 06/13/24 20:51 Potassium 3.3 mmol/L (3.3-5.1) 06/13/24 20:51 Chloride 96 mmol/L (98-108) L 06/13/24 20:51 Carbon Dioxide 24.1 mmol/L (21.0-32.0) 06/13/24 20:51 Anion Gap 13 (5-15) 06/13/24 20:51 BUN 13 mg/dL (4-19) 06/13/24 20:51 Creatinine 0.61 mg/dL (0.70-1.20) L 06/13/24 20:51 Est GFR (MDRD) Non-Af 91 (>60) 06/13/24 20:51 BUN/Creatinine Ratio 21.6 RATIO (10-20) H 06/13/24 20:51 Glucose 173 mg/dL (70-99) H 06/13/24 20:51 Dosing Weight Weight used for dosin.8 kg Estimated Creatinine Clearance Estimated Creatinine Clearance: 56.5 Goal Trough Goal Trough: 15-20 mcg/mL Pharmacy Plan for Drug Dosing Pharmacy Plan for Drug Dosing: Pharmacy Service will continue to monitor and adjust dosing as required. LOADING DOSE 2000MG 06/14 @ 0136. START 750MG Q12H AND DRAW TROUGH PRIOR TO 4TH DOSE Follow-Up Labs Follow-Up Labs: Trough: Vancomycin Date/Time Labs Ordered Labs to be done on [date and time ordered]: 06/15 @ 1330 06/14/24 0156 <Electronically signed by Ildefonso kong> Date _ Ildefonso Oglesby Cosigner Signature (if applicable): Date CC: ~ Signed [facility] Work Phone: 1(284) 937-947504-21-2025 History and physical note Author Art Rivas [facility] Note Date/Time June 14, 2024 12: 48am [facility] Medical Records Department [address] [place] [address] H&P Exam - Hospitalist 06/13/249 MR#: [id number] Acct: [id number] Name: SCOTT TALBERT Rep #:[id number] : 1945 78 From: Art pfeiffer DO PCP: Dr. Cole Cardona, DO Status:AD M PAT Location: [facility] [id number] HPI - General General Date of Admission: 06/13/24 Date of Service: 06/13/24 Chief Complaint: Worsening weakness HPI Narrative SCOTT TALBERT, is a 78 F who presented to [facility] ED on 06/13/2024 with worsening weakness. Patient was seen in the ED on 06/12 for similar concern. She was also reporting intermittent left-sided flank pain at that time. Was noted to have WBC count of 16, neutrophil predominant but CBC and BMP were otherwise unremarkable. UA was mildly infectious appearing. She was tachycardic to the 130s and had low-grade fever to 99.2F, but tachycardia resolved with IV fluid resuscitation. CT abdomen pelvis with IV contrast showedno pyelonephritis, did show focal irregular wall thickening of the cecum and ascending colon concerning for malignancy versus focal colitis, prominent retroperitoneal lymph nodes and right lower quadrant lymph nodes, and suspected filling defects in the left lower lobe pulmonary arteries concerning for PE withleft lower lobe consolidation. CTA chest showed no PE, did show densely consolidated large portion of left lower lobe with airway obstruction/opacification concerning for possible infectious/inflammatory process versus neoplastic process; also showed an expansile lytic lesion of the right acromion with areas of cortical disruption concerning for neoplastic process with associated pathologic fracture, as well as mildly enlarged subcarinal and left hilar lymph nodes. Importantly, on further chart review patient was hospitalized at [facility] in December, see note from 01/04 for further details. In short, she was on Coumadin for history of PE and presented there with rectal bleeding and was found to have supratherapeutic INR. CT abdomen pelvis showed no active GI bleedbut did show thickening of cecum and proximal ascending colon. GI recommended colonoscopy but patient declined this. 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 CT chest showed new dense left lower lobe consolidation. Pulmonology recommended outpatient bronchoscopy, and patient notably just completed this in early May and biopsy was negative for malignancy. Her GI bleed resolved with improved INR and she was opted to be discharged home on Eliquis. On 06/12 ED visit, patient was able to ambulate on her own to the bathroom and back and was steady on her feet. Given that her CAT scan findings appeared similar to prior findings in December and heart rate improved with IV fluids, decision was made for patient to be discharged home with family. Unfortunately,patient had worsening weakness at home and family did not feel like they were able to take care of her, so she came back in for further evaluation. In the EDtonight she was again tachycardic to the 120s but otherwise hemodynamically stable on room air and had only low- grade fever. Given 2 L of IV fluids with some improvement but not resolution of tachycardia. Hospitalist was then contacted for admission. I saw the patient at bedside in the ED, grandson was present. Patient was mildly fatigued appearing but otherwise sitting back comfortably in bed, conversing normally and in no acute distress. She did not appear overtly dry onexam. She reported worsening generalized weakness of her legs with difficulty getting out of bed and ambulating on her own. She reported continued intermittent mid to left lower back pain. Also reports right shoulder pain and states this has been going on for some time; notes that the pain is worse with motions like putting on her jacket, but she has been able to use the walker for ambulation without much shoulder pain. She continues to have mild chronic coughbut denies any sputum production. Denies any UTI symptoms. No other acute concerns at this time. [facility] Medical History (Updated 06/14/24 @ 00:07 by Kayla Haro) DVT (deep venous thrombosis) Pneumonia Osteoarthritis High triglycerides High cholesterol Arthritis Home Medications ?Medication ?Instructions ?Recorded ?Last Taken ?Type blood pressure monitor #1 ea 06/02/23 Unknown Rx venlafaxine 37.5 mg tablet 37.5 mg PO QDAY #90 tabs Unknown Rx atorvastatin 40 mg tablet See Rx Instructions .Route 0 08/19/23 Unknown Rx .COMPLEX #90 tabs chlordiazepoxide HCl 5 mg capsule 10 mg (2 x 5 mg) PO Q12H PRN 12/24/23 Unknown Rx anxiety #60 caps apixaban 2.5 mg tablet (Eliquis) 2.5 mg PO BID #180 ta bs 02/04/24 Unknown Rx amlodipine 5 mg tablet 5 mg PO DAILY #90 tabs 03/23 Unknown Rx betamethasone dipropionate 0.05 % 1 applic topical EVAN LY PRN rash 03/23/24 Unknown Rx topical cream #45 grams ferrous sulfate 325 mg (65 mg 650 mg PO QDAY 03/23/24 Unknown History iron) tablet (Feosol) handicap placard #1 ea 05/26/24 Unknown Rx cephalexin 250 mg capsule 250 mg PO 4X/DAY 06/11/24 Un known History meclizine 25 mg tablet 25 mg PO BID PRN dizziness 0 06/12/24 Unknown History Allergy/AdvReac Type Severity Reaction Status Date / Time prednisone Allergy Unknown Rash Verified 06/13/24 19:49 diphenhydramine (From Allergy Rash Verified 06/13/24 19:49 Benadryl) Influenza Virus Vaccines AdvReac Intermediate Other Verified 06/14/24 00:41 (flu vaccine) Family History Mother Arthritis Brother Myocardial infarction Father Heart disease Surgical History History of bilateral knee replacement History of umbilical hernia repair History of tonsillectomy Social History Smoking Status: Never smoker alcohol intake: never substance use type: does not use what type of physical activity do you participate in: swimming ROS Constitutional Constitutional: Reports fatigue and weakness; Denies chills or fever(s) Eyes Eyes: Denies change in vision ENT HEENT: Denies nasal congestion, sinus pressure or sore throat Cardiovascular Cardiovascular: Denies chest pain, dyspnea on exertion or edema Respiratory/Chest Respiratory/Chest: Reports cough; Denies productive cough, shortness of breath at rest, shortness of breath with exertion or wheezing Gastrointestinal Gastrointestinal: Denies abdominal pain, constipation, diarrhea, nausea or vomiting Genitourinary Genitourinary: Denies dysuria Musculoskeletal Musculoskeletal: Reports back pain and myalgias; Denies arthralgias Neurologic Neurologic: Denies dizziness, headache(s), numbness or paresthesias Vital Signs Vital Signs Vital Signs: 06/13/24 19:47 06/13/24 20:05 06/13/24 21:46 Temperature 98.6 F Temperature Source Temporal Pulse Rate 131 H 120 H Respiratory Rate 18 23 H Respiratory Effort Normal Respiratory Pattern Normal Blood Pressure 140/85 H 147/87 H Blood Pressure Mean 103 107 Pulse Ox 93 93 Oxygen Delivery Method Room Air Room Air Physical Exam Const alert, oriented x3 and no apparent distress Constitutional Narrative: Pleasant elderly female, class I obesity, mildly fatigued appearing but otherwise sitting back comfortably in bed, conversing normally, in no acute distress. General Appearance: cooperative and comfortable HEENT normocephalic, head/scalp atraumatic, hearing grossly normal bilaterally, nasal mucous membranes and turbinates normal and moist oral mucous membranes Eyes PERRL, EOMs intact bilaterally and conjunctivae normal Neck full ROM Chest inspection of chest normal Resp normal respiratory effort, normal air movement, no use of accessory muscles and clear to auscultation bilaterally Cardio no murmurs and peripheral pulses 2+ throughout Cardio Narrative: Tachycardic, regular rhythm. GI normal to inspection, nondistended, normoactive bowel sounds, soft to palpation,non-tender and non-distended Back/Spine normal ROM Extremity normal to inspection and no pedal edema Skin no rashes or lesions noted Neuro oriented x3 and no focal motor deficits Neuro Narrative: Generalized weakness noted. Speech: speech normal Psych mental status grossly normal Results Lab / Micro Data 06/13/24 20:51 06/13/24 20:51 Labs: Laboratory Results - last 24 hr 06/13/24 20:51: WBC 16.7 H, RBC 4.50, Hgb 12.9, Hct 37.5, MCV 83.3, MCH 28.7, MCHC 34.4, RDW Std Deviation 37.9, RDW Coeff of [place] 12.9, Plt Count 368, MPV 10.0, Immature Gran % (Auto) 0.500, Neut % (Auto) 87.5 H, Lymph % (Auto) 4.3 L, [place] % (Auto) 7.0, Eos % (Auto) 0.4, Baso % (Auto) 0.3, Absolute Neuts (auto) 14.7 H, Absolute Lymphs (auto) 0.72 L, Nucleated RBC % 0, Sodium 133, Potassium 3.3, Chloride 96 L, Carbon Dioxide 24.1, Anion Gap 13, BUN 13, Creatinine 0.61 L, Est GFR (MDRD) Non-Af 91, BUN/Creatinine Ratio 21.6 H, Glucose 173 H, Calcium 9.3, Magnesium 1.7 Assessment & Plan Assessment/Plan (1) Generalized weakness: PLAN: Plan Patient is a 78-year-old female who presented to [facility] ED on 06/13/2024 with worsening weakness. 1. Acute on chronic debility ? [facility] [facility]. PT/OT/case management consulted. Suspect possible underlying malignancy with current infection and known history of osteoarthritis are main contributors. Suspect she will need SNF placement ondischarge and is agreeable to this. Appreciate therapy recommendations. 2. Concern for postobstructive pneumonia, concern for UTI ? CTA chest showed dense left lower lobe consolidation with concern for possiblepostobstructive pneumonia; see HPI for further details on this. UA mildly infectious appearing. Urine culture from 06/11 growing only 11-25,000 gram- negative rods. However, WBC count elevated with neutrophil predominance and low-grade fever noted, and she has been treated with Keflex since for UTI without much improvement. Given these findings, will treat for now with IV vancomycin and Zosyn. Follow-up urine culture speciation and blood cultures from 06/11. 3. Concern for malignancy ? See HPI for further details. In short, has persistent thickening of cecum andascending colon noted on CAT scans in December and on this admit concerning for colon cancer. Notably, continues to have normal stools and reports no right- sided abdominal pain. Other concerning findings include right expansile lytic lesion of right acromion with associated pathologic fracture, mildly enlarged subcarinal and left hilar lymph nodes, L4 vertebral body 1.4 cm sclerotic lesion, and prominent retroperitoneal and right lower quadrant lymph nodes. GI recommended colonoscopy in December but patient refused then and continues to state now that she does not want to have colonoscopy done. Will send CEA level and labs for multiple myeloma for further workup. Can consider oncology consultfor additional input as needed. 4. Persistent sinus tachycardia ? Sinus tachycardia to the 120s to low 130s in the ED. Improved with IV fluids on ED visit on 06/11, but unfortunately it has not improved much after 2 L of IV fluids on this admission. No hypoxia noted. Blood pressure normal to hypertensive. Treating for possible infection as noted above. Monitor closely. 5. Left lower lobe consolidative mass ? See HPI for further details. In short, was found to have consolidative mass in December and recently had bronchoscopy with biopsy done in early May with biopsy results negative for malignancy. Chronic medical conditions: ? Class I obesity: BMI 33 on admit. Complicates hospital course, care and prognosis. ? Hypertension: Continue home amlodipine. ? Hyperlipidemia: Continue home statin. ? Anxiety/depression: Continue home venlafaxine and chlordiazepoxide twice dailyas needed. ? 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 ? Recent GI bleed: Had GI bleed in December that was suspected secondary to supratherapeutic INR while patient was on warfarin. Patient refused EGD or colonoscopy. GI bleed resolved with improvement in INR and hemoglobin has sinceimproved. DVT prophylaxis: Not indicated, on Eliquis CODE STATUS: DNR CCA, DNI Expect disposition: Likely SNF, 1 to 2 days Total clinical time spent by myself addressing the patient's medical issues, reviewing all the data, and collaborating with patient's care team: 75 minutes. Charges/Coding Visit Charges Inpatient E&M: 69931 Init Hosp L3 06/14/24 0048 <Electronically signed by Art Rivas DO> Cosigner Signature (if applicable): CC: Dr. Art Rivas DO; Dr. Cole Cardona, DO~ Signed [facility] Work Phone: 1(348) 653-825004-21-2025 Consult note [facility] Medical Records Department [address] [place] [address] Pharmacokinetic/Renal -Consult 06/14/24154 MR#: [id number] Acct: [id number] Name: SCOTT TALBERT Rep #:[id number] : 1945 78 From: Ildefonso Sanders od PCP: Dr. Cole Cardona, DO Status:DAMIEN M PAT Y Location: [place] [address] Consult Antibiotic Management Pharmacy has been consulted to manage selected antibiotic: Vancomycin Type of Intervention Type of Consult: New start Labs Labs: Sodium 133 mmol/L (133-145) 06/13/24 20:51 Potassium 3.3 mmol/L (3.3-5.1) 06/13/24 20:51 Chloride 96 mmol/L (98-108) L 06/13/24 20:51 Carbon Dioxide 24.1 mmol/L (21.0-32.0) 06/13/24 20:51 Anion Gap 13 (5-15) 06/13/24 20:51 BUN 13 mg/dL (4-19) 06/13/24 20:51 Creatinine 0.61 mg/dL (0.70-1.20) L 06/13/24 20:51 Est GFR (MDRD) Non-Af 91 (>60) 06/13/24 20:51 BUN/Creatinine Ratio 21.6 RATIO (10-20) H 06/13/24 20:51 Glucose 173 mg/dL (70-99) H 06/13/24 20:51 Dosing Weight Weight used for dosin.8 kg Estimated Creatinine Clearance Estimated Creatinine Clearance: 56.5 Goal Trough Goal Trough: 15-20 mcg/mL Pharmacy Plan for Drug Dosing Pharmacy Plan for Drug Dosing: Pharmacy Service will continue to monitor and adjust dosing as required. LOADING DOSE 2000MG 06/14 @ 0136. START 750MG Q12H AND DRAW TROUGH PRIOR TO 4TH DOSE Follow-Up Labs Follow-Up Labs: Trough: Vancomycin Date/Time Labs Ordered Labs to be done on [date and time ordered]: 06/15 @ 1330 06/14/24155 lood> Date _ Ildefonso Abbott Signature (if applicable): Date CC: ~ Signed [facility]04-21-2025 Discharge summary Author Rodriguez Braxton [facility] Note Date/Time June 13, 2024 11: 03pm [facility] Medical Records Department [address] [place] [address] Emergency Department Summary 06/13/24 MR#: [id number] Acct: [id number] Name: SCOTT TALBERT Rep #:[id number] : 1945 78 From: Rodriguez Braxton DO PCP: Dr. Cole Cardona DO Status:DAMIEN Lester PAT Location: [facility] AN305-5 [facility] History of Present Illness Chief Complaint: Weakness Informant: patient and family Narrative Narrative: Patient is a 78-year-old female with history of hypertension and previous DVT/PEcurrently on Eliquis. She was seen recently secondary to generalized weakness and difficulty to ambulate. At that time she was evaluated with CT [facility] which showed changes concerning for malignancy. She was tachycardic upon arrival but this resolved after IV hydration. She was evaluated by the hospitalist and it was felt that with her improvement of symptoms she would not need admitted and was discharged home. Patient states that her weakness has been slowly worsening since discharge and today tried to get into bed but was unable to do so and had to lower herself to the ground. She denies striking her head or any loss of consciousness. She states she was not on the ground for very long as she was able to get a hold of her grandson whom she lives with. Therefore the worsening weakness she was brought back in for evaluation [facility] Medical History (Updated 06/13/24 @ 23:[address] Rodriguez Braxton DO) Pneumonia Osteoarthritis High triglycerides High cholesterol Arthritis Home Medications ?Medication ?Instructions ?Recorded ?Last Taken ?Type blood pressure monitor #1 ea 06/02/23 Unknown Rx venlafaxine 37.5 mg tablet 37.5 mg PO QDAY #90 tabs Unknown Rx atorvastatin 40 mg tablet See Rx Instructions .Route 0 08/19/23 Unknown Rx .COMPLEX #90 tabs chlordiazepoxide HCl 5 mg capsule 10 mg (2 x 5 mg) PO Q12H PRN 12/24/23 Unknown Rx anxiety #60 caps apixaban 2.5 mg tablet (Eliquis) 2.5 mg PO BID #180 ta bs 02/04/24 Unknown Rx amlodipine 5 mg tablet 5 mg PO DAILY #90 tabs 03/23 Unknown Rx betamethasone dipropionate 0.05 % 1 applic topical EVAN LY PRN rash 03/23/24 Unknown Rx topical cream #45 grams ferrous sulfate 325 mg (65 mg 650 mg PO QDAY 03/23/24 Unknown History iron) tablet (Feosol) handicap placard #1 ea 05/26/24 Unknown Rx cephalexin 250 mg capsule 250 mg PO 4X/DAY 06/11/24 Un known History meclizine 25 mg tablet 25 mg PO BID PRN dizziness 0 06/12/24 Unknown History Allergy/AdvReac Type Severity Reaction Status Date / Time prednisone Allergy Unknown Rash Verified 06/13/24 19:49 diphenhydramine (From Allergy Rash Verified 06/13/24 19:49 Benadryl) Family History Mother Arthritis Brother Myocardial infarction Father Heart disease Surgical History History of bilateral knee replacement History of umbilical hernia repair History of tonsillectomy Social History Smoking Status: Never smoker alcohol intake: never substance use type: does not use what type of physical activity do you participate in: swimming ROS ROS ED Constitutional Constitutional ED: Denies chills or fever(s) Eyes Eyes: Denies blurry vision or change in vision ENT ENT ED: Denies sore throat Cardiovascular Cardiovascular: Reports racing heartbeat; Denies chest pain Respiratory/Chest Respiratory/Chest: Denies cough or dyspnea Gastrointestinal Gastrointestinal: Denies abdominal pain, diarrhea, nausea or vomiting Genitourinary Genitourinary ED: Denies dysuria Musculoskeletal Musculoskeletal: Denies myalgias Integumentary Denies rash Neurologic Neurologic: Reports weakness; Denies headache(s) Hematologic/Lymphatic Hematologic/Lymphatic: Reports easy bleeding and easy bruising EXAM Physical Exam Const Vital Signs: 06/13/24 19:47 06/13/24 20:05 06/13/24 21:46 Temperature 98.6 F Temperature Source Temporal Pulse Rate 131 H 120 H Respiratory Rate 18 23 H Respiratory Effort Normal Respiratory Pattern Normal Blood Pressure 140/85 H 147/87 H Blood Pressure Mean 103 107 Pulse Ox 93 93 Oxygen Delivery Method Room Air Room Air 06/13/24 22:13 Temperature 98.6 F Temperature Source Pulse Rate 120 H Respiratory Rate 23 H Respiratory Effort Respiratory Pattern Blood Pressure 147/87 H Blood Pressure Mean 107 Pulse Ox 93 Oxygen Delivery Method Positive well nourished, well developed and obese General Appearance ED: well developed; Negative for pallor Nutritional Appearance: obese HEENT Reports dry mucous membranes HEENT Narrative: Mucous membranes are dry and tacky No tongue or lip swelling no oral lesions no airway edema or compromise No signs of infection noted in the posterior pharynx Head is normocephalic atraumatic Mouth ED: Yes dry mucous membranes Mouth: dry mucous membranes Eyes PERRL and EOMs intact bilaterally General Eye ED: Negative for scleral icterus Neck supple Neck Narrative: No nuchal rigidity or meningeal signs Chest Wall palpation of chest normal Resp normal respiratory effort and clear to auscultation bilaterally Resp Narrative: Breath sounds are diminished throughout with faint rhonchi in the bilateral lower lobes greatest on the left but no signs of respiratory distress Cardio regular rhythm Rate: tachycardic and other Other Details: Tachycardic rate with regular rhythm GI normal to inspection, nondistended, normoactive bowel sounds, non-tender, non-distended and no masses GI Narrative: No voluntary guarding or rigidity or pulsatile mass Auscultation: normoactive bowel sounds Palpation: soft Extremity normal to inspection Extremity Narrative: Pelvis is stable and there is no shortening of either lower extremity Patient is able to move all extremities without difficulty All compartments are soft and compressible going against compartment syndrome Neuro oriented x3, CN's II-XII intact bilaterally and no sensory deficits noted Neuro Narrative: GCS of 15 Cranial nerves II through XII are grossly intact without focal neurologic deficit No truncal ataxia noted Sensorium / Orientation: alert Psych mental status grossly normal Skin no rashes or lesions noted, no wounds and No skin turgor normal Skin Narrative: Skin turgor is increased General Skin Exam: Negative for jaundice or pallor MDM MDM MDM Narrative Medical decision making narrative: Patient presented to the ER tachycardic but otherwise with stable vitals. She was recently worked up and with imaging of her chest abdomen and pelvis done just the other day that I did not feel the need for repeat imaging. [place] reported she lowered herself to the ground and is on Eliquis there is no signs of head injury and I have low concern for underlying subarachnoid or subdural hemorrhage so I do not feel the need for a CT of the head. Basic bloodwork was performed to check for any type of KOLBY or electrolyte abnormality. Labs were very similar to the previous day. By physical exam she does not have any neurologic deficit. With IV fluids there was improvement of her heart rate similar to the previous day. However as her weakness is returning and keeping her from performing her ADLs she will be admitted to the hospital for PT OT evaluation and further discussion about evaluation of the potential malignancy found on her previous imaging studies History & Record Review Discussion w/independent historian: Patient and Family Lab Data Attestation: I reviewed the patient's lab results. Labs: Laboratory Results - last 24 hr 06/13/24 20:51 WBC 16.7 H RBC 4.50 Hgb 12.9 Hct 37.5 MCV 83.3 MCH 28.7 MCHC 34.4 RDW Std Deviation 37.9 RDW Coeff of [place] 12.9 Plt Count 368 MPV 10.0 Immature Gran % (Auto) 0.500 Neut % (Auto) 87.5 H Lymph % (Auto) 4.3 L [place] % (Auto) 7.0 Eos % (Auto) 0.4 Baso % (Auto) 0.3 Absolute Neuts (auto) 14.7 H Absolute Lymphs (auto) 0.72 L Nucleated RBC % 0 Sodium 133 Potassium 3.3 Chloride 96 L Carbon Dioxide 24.1 Anion Gap 13 BUN 13 Creatinine 0.61 L Est GFR (MDRD) Non-Af 91 BUN/Creatinine Ratio 21.6 H Glucose 173 H Calcium 9.3 Magnesium 1.7 Management Discussion w/another healthcare provider: Hospitalist Discharge Plan Dx/Rx/DC Orders Clinical Impression: Generalized weakness, Hypertension, Dehydration, Current use of penitentiary anticoagulation Disposition Disposition: Acute Care Hospital [facility] What to do if you have Problems For any increased pain, shortness of breath, bleeding, nausea or vomiting, chestpain, or any unexpected problems, contact your Primary Care Provider. Call [facility] ([phone]) or report to the closest Emergency Room. Call 911 if necessary. 06/13/24 2303 <Electronically signed by Rodriguez Braxton DO> Cosigner Signature (if applicable): CC: Dr. Cole Cardona, DO ~ Signed [facility] Work Phone: 1(214) 400-161004-21-2025 History and physical note [facility] Medical Records Department [address] [place] [address] H&P Exam - Hospitalist 06/13/242208 MR#: [id number] Acct: [id number] Name: SCOTT TALBERT Rep #:[id number] : 1945 78 From: Art pfeiffer DO PCP: Dr. Cole Cardnoa, DO Status:AD M PAT Location: [place] [id number] HPI - General General Date of Admission: 06/13/24 Date of Service: 06/13/24 Chief Complaint: Worsening weakness HPI Narrative SCOTT TALBERT, is a 78 F who presented to [facility] ED on 06/13/2024 with worsening weakness. Patient was seen in the ED on 06/12 for similar concern. She was also reporting intermittent left-sided flank pain at that time. Was noted to have WBC count of 16, neutrophil predominant but CBC and BMP were otherwise unremarkable. UA was mildly infectious appearing. She was tachycardic to the 130s and had low-grade fever to 99.2F, but tachycardia resolved with IV fluid resuscitation. CT abdomen pelvis with IV contrast showedno pyelonephritis, did show focal irregular wall thickeningof the cecum and ascending colon concerning for malignancy versus focal colitis, prominent retroperitoneal lymph nodes and right lower quadrant lymph nodes, and suspected filling defects in the left lower lobe pulmonary arteries concerning for PE withleft lower lobe consolidation. CTA chest showed no PE, did show densely consolidated large portion of left lower lobe with airway obstruction/opacifi cation concerning for possible infectious/inflammatory process versus neoplastic process; also showed an expansile lytic lesion of the right acromion with areas of cortical disruption concerning for neoplastic process with associated pathologic fracture, as well as mildly enlarged subcarinal and left hilar lymph nodes. Importantly, on further chart review patient was hospitalized at [facility] in December, see note from 01/04 for further details. In short, she was on Coumadin for history of PE and presented there with rectal bleeding and was found to have supratherapeutic INR. CT abdomen pelvis showed noactive GI bleedbut did show thickening of cecum and proximal ascending colon. GI recommended colonoscopy but patient declined this. 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 Pulmonology recommended outpatient bronchos copy, and patient notably just completed this in early May and biopsy was negative for malignancy. Her GI bleed resolved with improved INR and she was opted to be discharged home on Eliquis. On 06/12 ED visit, patient was able to ambulate on her own to the bathroom and back and was steady on her feet. Given that her CAT scan findings appeared similar to prior findings in December and heart rate improved with IV fluids, decision was made for patient to be discharged home with family. Unfo rtunately,patient had worsening weakness at home and family did not feel like they were able to take care of her, so she came back in for further evaluation. In the EDtonight she was again tachycardic to the 120s but otherwise hemodynamically stable on room air and had only low-grade fever. Given 2L of IV fluids with some improvement but not resolution of tachycardia. Hospitalist was then contacted for admission. I saw the patient at bedside in the ED, grandson was present. Patient was mildly fatigued appearingbut otherwise sitting back comfortably in bed, conversing normally and in no acute distress. She did not appear overtly dry onexam. She reported worsening generalized weakness of her legs with difficulty getting out of bed and ambulating on her own. She reported continued intermittent mid to left lower back pain. Also reports right shoulder pain and states this has been going on for some time; notes that the pain is worse with motions like putting on her jacket, but she has been able to use thewalker for ambulation without much shoulder pain. She continues to have mild chronic coughbut denies any sputum production. Denies any UTI symptoms. No other acute concerns at this time. [facility] Medical History (Updated 06/14/24 @ 00:07 by Kayla Haro) DVT (deep venous thrombosis) Pneumonia Osteoarthritis High triglycerides High cholesterol Arthritis Home Medications ?Medication ?Instructions ?Recorded ?Last Taken ?Type blood pressure monitor #1 ea 06/02/23 Unknown Rx venlafaxine 37.5 mg tablet 37.5 mg PO QDAY #90 tabs Unknown Rx atorvastatin 40 mg tablet See Rx Instructions .Route 0 08/19/23 Unknown Rx .COMPLEX #90 tabs chlordiazepoxide HCl 5 mg capsule 10 mg (2 x 5 mg) PO Q12H PRN 12/24/23 Unknown Rx anxiety #60 caps apixaban 2.5 mg tablet (Eliquis) 2.5 mg PO BID #180 ta bs 02/04/24 Unknown Rx amlodipine 5 mg tablet 5 mg PO DAILY #90 tabs 03/23 Unknown Rx betamethasone dipropionate 0.05 % 1 applic topical EVAN LY PRN rash 03/23/24 Unknown Rx topical cream #45 grams ferrous sulfate 325 mg (65 mg 650 mg PO QDAY 03/23/24 Unknown History iron) tablet (Feosol) handicap placard #1 ea 05/26/24 Unknown Rx cephalexin 250 mg capsule 250 mg PO 4X/DAY 06/11/24 Un known History meclizine 25 mg tablet 25 mg PO BID PRN dizziness 0 06/12/24 Unknown History Allergy/AdvReac Type Severity Reaction Status Date / Time prednisone Allergy Unknown Rash Verified 06/13/24 19:49 diphenhydramine (From Allergy Rash Verified 06/13/24 19:49 Benadryl) Influenza Virus Vaccines AdvReac Intermediate Other Verified 06/14/24 00:41 (flu vaccine) Family History Mother Arthritis Brother Myocardial infarction Father Heart disease Surgical History History of bilateral knee replacement History of umbilical hernia repair History of tonsillectomy Social History Smoking Status: Never smoker alcohol intake: never substance use type: does not use what type of physical activity do you participate in: swimming ROS Constitutional Constitutional: Reports fatigue and weakness; Denies chills or fever(s) Eyes Eyes: Denies change in vision ENT HEENT: Denies nasal congestion, sinus pressure or sore throat Cardiovascular Cardiovascular: Denies chest pain, dyspnea on exertion or edema Respiratory/Chest Respiratory/Chest: Reports cough; Denies productive cough, shortness of breath at rest, shortness of breath with exertion or wheezing Gastrointestinal Gastrointestinal: Denies abdominal pain, constipation, diarrhea, nausea or vomiting Genitourinary Genitourinary: Denies dysuria Musculoskeletal Musculoskeletal: Reports back pain and myalgias; Denies arthralgias Neurologic Neurologic: Denies dizziness, headache(s), numbness or paresthesias Vital Signs Vital Signs Vital Signs: 06/13/24 19:47 06/13/24 20:05 06/13/24 21:46 Temperature 98.6 F Temperature Source Temporal Pulse Rate 131 H 120 H Respiratory Rate 18 23 H Respiratory Effort Normal Respiratory Pattern Normal Blood Pressure 140/85 H 147/87 H Blood Pressure Mean 103 107 Pulse Ox 93 93 Oxygen Delivery Method Room Air Room Air Physical Exam Const alert, oriented x3 and no apparent distress Constitutional Narrative: Pleasant elderly female, class I obesity, mildly fatigued appearing but otherwise sitting back comfortably in bed, conversing normally, in no acute distress. General Appearance: cooperative and comfortable HEENT normocephalic, head/scalp atraumatic, hearing grossly normal bilaterally, nasal mucous membranes and turbinates normal and moist oral mucous membranes Eyes PERRL, EOMs intact bilaterally and conjunctivae normal Neck full ROM Chest inspection of chest normal Resp normal respiratory effort, normal air movement, no use of accessory muscles and clear to auscultation bilaterally Cardio no murmurs and peripheral pulses 2+ throughout Cardio Narrative: Tachycardic, regular rhythm. GI normal to inspection, nondistended, normoactive bowel sounds, soft to palpation,non-tender and non-distended Back/Spine normal ROM Extremity normal to inspection and no pedal edema Skin no rashes or lesions noted Neuro oriented x3 and no focal motor deficits Neuro Narrative: Generalized weakness noted. Speech: speech normal Psych mental status grossly normal Results Lab / Micro Data 06/13/24 20:51 06/13/24 20:51 Labs: Laboratory Results - last 24 hr 06/13/24 20:51: WBC 16.7 H, RBC 4.50, Hgb 12.9, Hct 37.5, MCV 83.3, MCH 28.7, MCHC 34.4, RDW Std Deviation 37.9, RDW Coeff of Carroll 12.9, Plt Count 368, MPV 10.0, Immature Gran % (Auto) 0.500, Neut % (Auto) 87.5 H, Lymph % (Auto) 4.3 L, [place] % (Auto) 7.0, Eos % (Auto) 0.4, Baso % (Auto) 0.3, AbsoluteNeuts (auto) 14.7 H, Absolute Lymphs (auto) 0.72 L, Nucleated RBC % 0, Sodium 133, Potassium 3.3, Chloride 96 L, Carbon Dioxide 24.1, Anion Gap 13, BUN 13, Creatinine 0.61 L, Est GFR (MDRD) Non-Af 91, BUN/Creatinine Ratio 21.6 H, Glucose 173 H, Calcium 9.3, Magnesium 1.7 Assessment & Plan Assessment/Plan (1) Generalized weakness: PLAN: Plan Patient is a 78-year-old female who presented to [facility] ED on 06/13/2024 with worsening weakness. 1. Acute on chronic debility ? Admit under observation status to [facility]. PT/OT/case management consulted. Suspect possible underlying malignancy with current infection and known history of osteoarthritis are main contributors. Suspect she will need SNF placement ondischarge and is agreeable to this. Appreciate therapy recommendations. 2. Concern for postobstructive pneumonia, concern for UTI ? CTA chest showed dense left lower lobe consolidation with concern for possiblepostobstructive pneumonia; see HPI for further details on this. UA mildly infectious appearing. Urine culture from 06/11growing only 11-25,000 gram- negative rods. However, WBC count elevated with neutrophil predominanceand low- grade fever noted, and she has been treated with Keflex since for UTI without muchimprovement. Given these findings, will treat for now with IV vancomycin and Zosyn. Follow-up urineculture speciation and blood cultures from 06/11. 3. Concern for malignancy ? See HPI for further details. In short, has persistent thickening of cecum andascending colon noted on CAT scans in December and on this admit concerning for colon cancer. Notably, continues to havenormal stools and reports no right- sided abdominal pain. Other concerning findings include right expansile lytic lesion of right acromion with associated pathologic fracture, mildly enlarged subcarinal and left hilar lymph nodes, L4 vertebral body 1.4 cm sclerotic lesion, and prominent retroperitoneal and right lower quadrant lymph nodes. GI recommended colonoscopy in December but patient refusedthen and continues to state now that she does not want to have colonoscopy done. Will send CEA level and labs for multiple myeloma for further workup. Can consider oncology consultfor additional input as needed. 4. Persistent sinus tachycardia ? Sinus tachycardia to the 120s to low 130s in the ED. Improved with IV fluids on ED visit on 06/11,but unfortunately it has not improved much after 2 L of IV fluids on this admission. No hypoxia noted. Blood pressure normal to hypertensive. Treating for possible infection as noted above. Monitor closely. 5. Left lower lobe consolidative mass ? See HPI for further details. In short, was found to have consolidative mass in December and recently had bronchoscopy with biopsy done in early May with biopsy results negative for malignancy. Chronic medical conditions: ? Class I obesity: BMI 33 on admit. Complicates hospital course, care and prognosis. ? Hypertension: Continue home amlodipine. ? Hyperlipidemia: Continue home statin. ? Anxiety/depression: Continue home venlafaxine and chlordiazepoxide twice dailyas needed. ? 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 ? Recent GI bleed: Had GI bleed in December that was suspected secondary to supratherapeutic INR while patient was on warfarin. Patient refused EGD or colonoscopy. GI bleed resolved with improvement in INR and hemoglobin has sinceimproved. DVT prophylaxis: Not indicated, on Eliquis CODE STATUS: DNR CCA, DNI Expect disposition: Likely SNF, 1 to 2 days Total clinical time spent by myself addressing the patient's medical issues, reviewing all the data, and collaborating with patient's care team: 75 minutes. Charges/Coding Visit Charges Inpatient E&M: 59582 Init Hosp L3 06/14/24 0048 Cosigner Signature (if applicable): CC: Dr. Art Rivas, DO; Dr. Cole Cardona, DO~ Signed [facility]04-20-2025 Discharge summary [facility] Medical Records Department [address] [place] [address] Emergency Department Summary 06/13/24 MR#: [id number] Acct: [id number] Name: SCOTT TALBERT Rep #:[id number] : 1945 78 From: Rodriguez Braxton DO PCP: Dr. Cole Cardona, DO Status:AD M [facility] Location: [place] [address] HPI History of Present Illness Chief Complaint: Weakness Informant: patient and family Narrative Narrative: Patient is a 78-year-old female with history of hypertension and previous DVT/PEcurrently on Eliquis. She was seen recently secondary to generalized weakness and difficulty to ambulate. At that time she was evaluated with CT scans of herchest abdomen and pelvis which showed changes concerning for ma lignancy. She was tachycardic upon arrival but this resolved after IV hydration. She was evaluated by the hospitalist and it was felt that with her improvement of symptoms she would not need admittedand was discharged home. Patient states that her weakness has been slowly worsening since dischargeand today tried to get into bed but was unable to do so and had to lower herself to the ground. She denies striking her head or any loss of consciousness. She states she was not on the ground for very long as she was able to get a hold of her grandson whom she lives with. Therefore the worsening weakness she was brought back in for evaluation [facility] Medical History (Updated 06/13/24 @ 23:[address] Rodriguez Braxton DO) Pneumonia Osteoarthritis High triglycerides High cholesterol Arthritis Home Medications ?Medication ?Instructions ?Recorded ?Last Taken ?Type blood pressure monitor #1 ea 06/02/23 Unknown Rx venlafaxine 37.5 mg tablet 37.5 mg PO QDAY #90 tabs Unknown Rx atorvastatin 40 mg tablet See Rx Instructions .Route 0 08/19/23 Unknown Rx .COMPLEX #90 tabs chlordiazepoxide HCl 5 mg capsule 10 mg (2 x 5 mg) PO Q12H PRN 12/24/23 Unknown Rx anxiety #60 caps apixaban 2.5 mg tablet (Eliquis) 2.5 mg PO BID #180 ta bs 02/04/24 Unknown Rx amlodipine 5 mg tablet 5 mg PO DAILY #90 tabs 03/23 Unknown Rx betamethasone dipropionate 0.05 % 1 applic topical EVAN LY PRN rash 03/23/24 Unknown Rx topical cream #45 grams ferrous sulfate 325 mg (65 mg 650 mg PO QDAY 03/23/24 Unknown History iron) tablet (Feosol) handicap placard #1 ea 05/26/24 Unknown Rx cephalexin 250 mg capsule 250 mg PO 4X/DAY 06/11/24 Un known History meclizine 25 mg tablet 25 mg PO BID PRN dizziness 0 06/12/24 Unknown History Allergy/AdvReac Type Severity Reaction Status Date / Time prednisone Allergy Unknown Rash Verified 06/13/24 19:49 diphenhydramine (From Allergy Rash Verified 06/13/24 19:49 Benadryl) Family History Mother Arthritis Brother Myocardial infarction Father Heart disease Surgical History History of bilateral knee replacement History of umbilical hernia repair History of tonsillectomy Social History Smoking Status: Never smoker alcohol intake: never substance use type: does not use what type of physical activity do you participate in: swimming ROS ROS ED Constitutional Constitutional ED: Denies chills or fever(s) Eyes Eyes: Denies blurry vision or change in vision ENT ENT ED: Denies sore throat Cardiovascular Cardiovascular: Reports racing heartbeat; Denies chest pain Respiratory/Chest Respiratory/Chest: Denies cough or dyspnea Gastrointestinal Gastrointestinal: Denies abdominal pain, diarrhea, nausea or vomiting Genitourinary Genitourinary ED: Denies dysuria Musculoskeletal Musculoskeletal: Denies myalgias Integumentary Denies rash Neurologic Neurologic: Reports weakness; Denies headache(s) Hematologic/Lymphatic Hematologic/Lymphatic: Reports easy bleeding and easy bruising EXAM Physical Exam Const Vital Signs: 06/13/24 19:47 06/13/24 20:05 06/13/24 21:46 Temperature 98.6 F Temperature Source Temporal Pulse Rate 131 H 120 H Respiratory Rate 18 23 H Respiratory Effort Normal Respiratory Pattern Normal Blood Pressure 140/85 H 147/87 H Blood Pressure Mean 103 107 Pulse Ox 93 93 Oxygen Delivery Method Room Air Room Air 06/13/24 22:13 Temperature 98.6 F Temperature Source Pulse Rate 120 H Respiratory Rate 23 H Respiratory Effort Respiratory Pattern Blood Pressure 147/87 H Blood Pressure Mean 107 Pulse Ox 93 Oxygen Delivery Method Positive well nourished, well developed and obese General Appearance ED: well developed; Negative for pallor Nutritional Appearance: obese HEENT Reports dry mucous membranes HEENT Narrative: Mucous membranes are dry and tacky No tongue or lip swelling no oral lesions no airway edema or compromise No signs of infection noted in the posterior pharynx Head is normocephalic atraumatic Mouth ED: Yes dry mucous membranes Mouth: dry mucous membranes Eyes PERRL and EOMs intact bilaterally General Eye ED: Negative for scleral icterus Neck supple Neck Narrative: No nuchal rigidity or meningeal signs Chest Wall palpation of chest normal Resp normal respiratory effort and clear to auscultation bilaterally Resp Narrative: Breath sounds are diminished throughout with faint rhonchi in the bilateral lower lobes greatest onthe left but no signs of respiratory distress Cardio regular rhythm Rate: tachycardic and other Other Details: Tachycardic rate with regular rhythm GI normal to inspection, nondistended, normoactive bowel sounds, non-tender, non- distended and no masses GI Narrative: No voluntary guarding or rigidity or pulsatile mass Auscultation: normoactive bowel sounds Palpation: soft Extremity normal to inspection Extremity Narrative: Pelvis is stable and there is no shortening of either lower extremity Patient is able to move all extremities without difficulty All compartments are soft and compressible going against compartment syndrome Neuro oriented x3, CN's II-XII intact bilaterally and no sensory deficits noted Neuro Narrative: GCS of 15 Cranial nerves II through XII are grossly intact without focal neurologic deficit No truncal ataxia noted Sensorium / Orientation: alert Psych mental status grossly normal Skin no rashes or lesions noted, no wounds and No skin turgor normal Skin Narrative: Skin turgor is increased General Skin Exam: Negative for jaundice or pallor MDM MDM MDM Narrative Medical decision making narrative: Patient presented to the ER tachycardic but otherwise with stable vitals. She was recently worked up and with imaging of her chest abdomen and pelvis done just the other day that I did not feel the need for repeat imaging. [place] she lowered herself to the ground and is on Eliquis there is no signs of head injury and I have low concern for underlying subarachnoid or subdural hemorrhage so I do not feel the need for a CT of the head. Basic bloodwork was performed to check for any type of KOLBY or electrolyte abnormality. Labs were very similar to the previous day. By physical exam she does not have any neurologic deficit. With IV fluids there was improvement of her heart rate s imilar to the previous day. However as her weakness is returning and keeping her from performing her ADLs she will be admitted to the hospital for PT OT evaluation and further discussion about evaluation of the potential malignancy found on her previous imaging studies History & Record Review Discussion w/independent historian: Patient and Family Lab Data Attestation: I reviewed the patient's lab results. Labs: Laboratory Results - last 24 hr 06/13/24 20:51 WBC 16.7 H RBC 4.50 Hgb 12.9 Hct 37.5 MCV 83.3 MCH 28.7 MCHC 34.4 RDW Std Deviation 37.9 RDW Coeff of [place] 12.9 Plt Count 368 MPV 10.0 Immature Gran % (Auto) 0.500 Neut % (Auto) 87.5 H Lymph % (Auto) 4.3 L [place] % (Auto) 7.0 Eos % (Auto) 0.4 Baso % (Auto) 0.3 Absolute Neuts (auto) 14.7 H Absolute Lymphs (auto) 0.72 L Nucleated RBC % 0 Sodium 133 Potassium 3.3 Chloride 96 L Carbon Dioxide 24.1 Anion Gap 13 BUN 13 Creatinine 0.61 L Est GFR (MDRD) Non-Af 91 BUN/Creatinine Ratio 21.6 H Glucose 173 H Calcium 9.3 Magnesium 1.7 Management Discussion w/another healthcare provider: Hospitalist Discharge Plan Dx/Rx/DC Orders Clinical Impression: Generalized weakness, Hypertension, Dehydration, Current use of penitentiary anticoagulation Disposition Disposition: Acute Care Hospital [facility] What to do if you have Problems For any increased pain, shortness of breath, bleeding, nausea or vomiting, chestpain, or any unexpected problems, contact your Primary Care Provider. Call [facility] ([phone]) or report tothe closest Emergency Room. Call 911 if necessary. 06/13/24 5367 Cosigner Signature (if applicable): CC: Dr. Cole Cardona, DO ~ Signed [facility]04-20-2025 Discharge summary Author Rodriguez Braxton [facility] Note Date/Time June 13, 2024 11: 03pm [facility] Medical Records Department [address] [place] [address] Emergency Department Summary 06/13/24 MR#: [id number] Acct: [id number] Name: SCOTT TALBERT Rep #:[id number] : 1945 78 From: Rodriguez Braxton DO PCP: Dr. 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 She was seen recently secondary to generalized weakness and difficulty to ambulate. At that time she was evaluated with CT scans of herchest abdomen and pelvis which showed changes concerning for malignancy. She was tachycardic upon arrival but this resolved after IV hydration. She was evaluated by the hospitalist and it was felt that with her improvement of symptoms she would not need admitted and was discharged home. Patient states that her weakness has been slowly worsening since discharge and today tried to get into bed but was unable to do so and had to lower herself to the ground. She denies striking her head or any loss of consciousness. She states she was not on the ground for very long as she was able to get a hold of her grandson whom she lives with. Therefore the worsening weakness she was brought back in for evaluation [facility] Medical History (Updated 06/13/24 @ 23:[address] Rodriguez Braxton, DO) Pneumonia Osteoarthritis High triglycerides High cholesterol Arthritis Home Medications ?Medication ?Instructions ?Recorded ?Last Taken ?Type blood pressure monitor #1 ea 06/02/23 Unknown Rx venlafaxine 37.5 mg tablet 37.5 mg PO QDAY #90 tabs Unknown Rx atorvastatin 40 mg tablet See Rx Instructions .Route 0 08/19/23 Unknown Rx .COMPLEX #90 tabs chlordiazepoxide HCl 5 mg capsule 10 mg (2 x 5 mg) PO Q12H PRN 12/24/23 Unknown Rx anxiety #60 caps apixaban 2.5 mg tablet (Eliquis) 2.5 mg PO BID #180 ta bs 02/04/24 Unknown Rx amlodipine 5 mg tablet 5 mg PO DAILY #90 tabs 03/23 Unknown Rx betamethasone dipropionate 0.05 % 1 applic topical EVAN LY PRN rash 03/23/24 Unknown Rx topical cream #45 grams ferrous sulfate 325 mg (65 mg 650 mg PO QDAY 03/23/24 Unknown History iron) tablet (Feosol) handicap placard #1 ea 05/26/24 Unknown Rx cephalexin 250 mg capsule 250 mg PO 4X/DAY 06/11/24 Un known History meclizine 25 mg tablet 25 mg PO BID PRN dizziness 0 06/12/24 Unknown History Allergy/AdvReac Type Severity Reaction Status Date / Time prednisone Allergy Unknown Rash Verified 06/13/24 19:49 diphenhydramine (From Allergy Rash Verified 06/13/24 19:49 Benadryl) Family History Mother Arthritis Brother Myocardial infarction Father Heart disease Surgical History History of bilateral knee replacement History of umbilical hernia repair History of tonsillectomy Social History Smoking Status: Never smoker alcohol intake: never substance use type: does not use what type of physical activity do you participate in: swimming ROS ROS ED Constitutional Constitutional ED: Denies chills or fever(s) Eyes Eyes: Denies blurry vision or change in vision ENT ENT ED: Denies sore throat Cardiovascular Cardiovascular: Reports racing heartbeat; Denies chest pain Respiratory/Chest Respiratory/Chest: Denies cough or dyspnea Gastrointestinal Gastrointestinal: Denies abdominal pain, diarrhea, nausea or vomiting Genitourinary Genitourinary ED: Denies dysuria Musculoskeletal Musculoskeletal: Denies myalgias Integumentary Denies rash Neurologic Neurologic: Reports weakness; Denies headache(s) Hematologic/Lymphatic Hematologic/Lymphatic: Reports easy bleeding and easy bruising EXAM Physical Exam Const Vital Signs: 06/13/24 19:47 06/13/24 20:05 06/13/24 21:46 Temperature 98.6 F Temperature Source Temporal Pulse Rate 131 H 120 H Respiratory Rate 18 23 H Respiratory Effort Normal Respiratory Pattern Normal Blood Pressure 140/85 H 147/87 H Blood Pressure Mean 103 107 Pulse Ox 93 93 Oxygen Delivery Method Room Air Room Air 06/13/24 22:13 Temperature 98.6 F Temperature Source Pulse Rate 120 H Respiratory Rate 23 H Respiratory Effort Respiratory Pattern Blood Pressure 147/87 H Blood Pressure Mean 107 Pulse Ox 93 Oxygen Delivery Method Positive well nourished, well developed and obese General Appearance ED: well developed; Negative for pallor Nutritional Appearance: obese HEENT Reports dry mucous membranes HEENT Narrative: Mucous membranes are dry and tacky No tongue or lip swelling no oral lesions no airway edema or compromise No signs of infection noted in the posterior pharynx Head is normocephalic atraumatic Mouth ED: Yes dry mucous membranes Mouth: dry mucous membranes Eyes PERRL and EOMs intact bilaterally General Eye ED: Negative for scleral icterus Neck supple Neck Narrative: No nuchal rigidity or meningeal signs Chest Wall palpation of chest normal Resp normal respiratory effort and clear to auscultation bilaterally Resp Narrative: Breath sounds are diminished throughout with faint rhonchi in the bilateral lower lobes greatest on the left but no signs of respiratory distress Cardio regular rhythm Rate: tachycardic and other Other Details: Tachycardic rate with regular rhythm GI normal to inspection, nondistended, normoactive bowel sounds, non-tender, non-distended and no masses GI Narrative: No voluntary guarding or rigidity or pulsatile mass Auscultation: normoactive bowel sounds Palpation: soft Extremity normal to inspection Extremity Narrative: Pelvis is stable and there is no shortening of either lower extremity Patient is able to move all extremities without difficulty All compartments are soft and compressible going against compartment syndrome Neuro oriented x3, CN's II-XII intact bilaterally and no sensory deficits noted Neuro Narrative: GCS of 15 Cranial nerves II through XII are grossly intact without focal neurologic deficit No truncal ataxia noted Sensorium / Orientation: alert Psych mental status grossly normal Skin no rashes or lesions noted, no wounds and No skin turgor normal Skin Narrative: Skin turgor is increased General Skin Exam: Negative for jaundice or pallor MDM MDM MDM Narrative Medical decision making narrative: Patient presented to the ER tachycardic but otherwise with stable vitals. She was recently worked up and with imaging of her chest abdomen and pelvis done just the other day that I did not feel the need for repeat imaging. Even though[place] reported she lowered herself to the ground and is on Eliquis there is no signs of head injury and I have low concern for underlying subarachnoid or subdural hemorrhage so I do not feel the need for a CT of the head. Basic bloodwork was performed to check for any type of KOLBY or electrolyte abnormality. Labs were very similar to the previous day. By physical exam she does not have any neurologic deficit. With IV fluids there was improvement of her heart rate similar to the previous day. However as her weakness is returning and keeping her from performing her ADLs she will be admitted to the hospital for PT OT evaluation and further discussion about evaluation of the potential malignancy found on her previous imaging studies History & Record Review Discussion w/independent historian: Patient and Family Lab Data Attestation: I reviewed the patient's lab results. Labs: Laboratory Results - last 24 hr 06/13/24 20:51 WBC 16.7 H RBC 4.50 Hgb 12.9 Hct 37.5 MCV 83.3 MCH 28.7 MCHC 34.4 RDW Std Deviation 37.9 RDW Coeff of [place] 12.9 Plt Count 368 MPV 10.0 Immature Gran % (Auto) 0.500 Neut % (Auto) 87.5 H Lymph % (Auto) 4.3 L [place] % (Auto) 7.0 Eos % (Auto) 0.4 Baso % (Auto) 0.3 Absolute Neuts (auto) 14.7 H Absolute Lymphs (auto) 0.72 L Nucleated RBC % 0 Sodium 133 Potassium 3.3 Chloride 96 L Carbon Dioxide 24.1 Anion Gap 13 BUN 13 Creatinine 0.61 L Est GFR (MDRD) Non-Af 91 BUN/Creatinine Ratio 21.6 H Glucose 173 H Calcium 9.3 Magnesium 1.7 Management Discussion w/another healthcare provider: Hospitalist Discharge Plan Dx/Rx/DC Orders Clinical Impression: Generalized weakness, Hypertension, Dehydration, 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 Call [facility] ([phone]) or report to the closest Emergency Room. Call 911 if necessary. 06/13/24 2472 <Electronically signed by Rodriguez Braxton DO> Cosigner Signature (if applicable): CC: Dr. Cole Cardona, ~ Signed [facility] Work Phone: [phone] 620-379404-19-2025 Radiology Diagnostic study note [facility] Imaging Services [address] [place], [place] [id number] CTA Chest W/WO Contrast MR#: [id number] Acct: [id number] Name: SCOTT TALBERT Rep #: [id number] : 1945 F 78 From: Lee Borjas MD PCP: Dr. Cole Cardona, DO Status: RE G ER Study:CTA Chest W/WO Contrast Date of Exam: 06/12/24 Exam# [id number] Ordering Dr: Yoli Braxton DO PROCEDURE: CTA CHEST W/WO CONTRAST 06/12/2024 REASON FOR EXAM: ? PE TECHNIQUE: CTA imaging of the chest with intravenous contrast. Coronal and Sagittal reconstruction series were provided. Maximum intensity projection (MIPs) Volume rendering and CONTRAST: 100 cc Isovue 370 IV One or more dose reduction techniques were used (e.g., Automated exposure control, adjustment of the mA and/or kV according to patient size, use of iterative reconstruction technique). RADIATION DOSE SUMMARY: CTDlvol: 12.19 mGy DLP: 413.15 mGycm COMPARISON: None available FINDINGS: No evidence of filling defect to suggest pulmonary embolism. Ectatic thoracic aorta appears within limits. Standard three-vessel arch appears within limits. Mild appearing coronary calcification noted. No pericardial or pleural effusion. Mildly enlarged subcarinal node and possibly mildly large left hilar nodes. A couple bilateral low-density cystic appearing thyroid foci largest right lobe measuring 1.8 cm coronal 125. The left lower lobe posterior basal and portion of the anteriomedial basal segmental airways appearoccluded. There is collapse and dense consolidation of large portion of the left lower lobe with some aeration seen at the superior segment and portions of the anteromedial basal segments. Widening of the pulmonary vessels at the left inferior hilum between area of consolidation for example axial 118 difficult to exclude an underlying parenchymal mass. The lungs otherwise appear clear. Limited images upper abdomen suggestion of possible intrarenal stone partially imaged upper pole left kidney and possibly partially imaged cortical cyst at the upper portion of the right kidney axial image 1. Expansile lytic lesion of the right acromion with areas of cortical disruption for example axial 232 concerning for neoplastic process and associated pathologic fracture. Subsequent areas of right clavicle lytic appearing fociaxial 233. CT/CTA Chest W/WO Contrast IMPRESSION: No evidence of filling defect to suggest pulmonary embolism. Densely consolidated large portion of the left lower lobe as above with airway obstruction/opacification concerning for possible inflammatory/infectious process or neoplastic process not excluded. Clinically correlate, recommendpulmonary consult and requires further workup. Expansile lytic lesion of the right acromion with areas of cortical disruption for example axial 232 concerning for neoplastic process and associated pathologic fracture. Subjacent areas of right clavicle lytic appearing foci axial 233. Mildly enlarged subcarinal lymph node and possibly mildly large left hilar nodes. May be reactive with neoplastic process not excluded, follow-up to resolution. Reading Location: [id number] CC: Dr. Cole Cardona DO; Rodriguez Braxton DO ~ [employer] Manager: Signed [facility]04-19-2025 Note. MICRO - Microbiology PROCEDURE: Urine Culture [O1 *1] SOURCE: Urine BODY SITE: COLLECTED DATE/TIME: 06/10/2024 18:42 EDT RECEIVED DATE/TIME: 06/11/2024 16:16 EDT START DATE/TIME: 06/11/2024 16:17 EDT FREE TEXT SOURCE: FINAL REPORTS Final Report [] Verified Date/Time/Personnel: 06/12/2024 14:18 EDT 10,000 - 50,000 cfu/ml Multiple bacterial morphotypes present. Probable Contamination. Suggest recollection if clinically indicated. PRELIMINARY REPORTS Preliminary Report [] Verified Date/Time/Personnel: 06/11/2024 16:59 EDT Specimen received in lab. Order Comments O1: Urine Culture Added by Discern Performing Locations *1: This test was performed at: [facility], [address] [place] [address], [id number] , [facility]04-11-2025 Note. MICRO - Microbiology PROCEDURE: Culture Respiratory with Gram Stain [^1 *1] SOURCE: Bronchial Washing BODY SITE: Bronchial COLLECTED DATE/TIME: 06/02/2024 12:15 EDT RECEIVED DATE/TIME: 06/02/2024 15:38 EDT START DATE/TIME: 06/02/2024 15:41 EDT FREE TEXT SOURCE: Left FINAL REPORTS Final Report [] Verified Date/Time/Personnel: 06/04/2024 07:10 EDT Normal respiratory diane present at 48 hours Sensitivity testing not indicated PRELIMINARY REPORTS Preliminary Report [] Verified Date/Time/Personnel: 06/03/2024 08:42 EDT Negative for respiratory pathogens at 24 hours. STAINS GS [] Verified Date/Time/Personnel: 06/02/2024 17:23 EDT 1+ Mononuclear cells No organisms seen. Interpretive Data ^1: Culture Respiratory with Gram Stain Requests for Mycoplasma, Legionella, Fungi, Mycobacteria, Chlamydia, and Viruses require ordering of those individual tests. Performing Locations *1: This test was performed at: [facility], [address] [place] [address], [id number] , [facility] [id number] Hospital Discharge instructions Patient Education 06/02/2024 14:41:43 2-OPD Bronchoscopy (12/2017)(CUSTOM) Bronchoscopy Discharge Instructions __X__ Do NOT eat or drink any fluids until you get home. __X__ Progress slowing with clear liquids (water, tea, broth, jello or aleah tessa), then resume your previous diet and medications if you have no difficulty swallowing. __X__ Some coughing of blood-tinged mucus is to be expected. Notify your doctor if you have any severe chest pain or excessive coughing of bright red blood. If you have any questions, please call your doctor at the number listed on your follow-up instructions. Follow all instructions given to you by your doctor. You have received Fentanyl and Versed as part of your sedation. 06/02/2024 14:41:35 1- [facility] General Discharge Guidelines (11/08/2022)(CUSTOM) [place] SAME DAY SURGERY DISCHARGE INSTRUCTIONS PLEASE FOLLOW THE INSTRUCTIONS BELOW MARKED WITH AN X: __X_Regular Diet: Start with clear liquids, then soup and crackers. Gradually add other foods unless otherwise instructed by your surgeon __X_Drink extra fluids ACTIVTY: __X_Since you have had anesthetic, it would be advisable not to drive, drink alcohol, or make majordecisions over the next 24 hours. You may require more rest tonight and tomorrow __X_Do not drive vehicle while taking narcotics and as directed by your Surgeon ____Restrict activity as follows: ____Do not have sexual intercourse. Nothing in the vagina-No tampons or Douching ____No heavy lifting, pushing, or straining ____Elevate operative limb ____Ice as directed __X_Follow all written and verbal instructions given to you by your Doctor ____Other: BATHING/SHOWERING ____Sponge bathe until office visit. ____Sitting in tub of warm water may relieve discomfort ____May tub bathe ____May shower in 24-48 hours with clean linen unless otherwise instructed by your Doctor DRESSING: ____Keep operative area clean and dry ____Check the operative area for signs of bleeding. Apply pressure to the bleeding site if necessary. ____Change drip pad as needed ____Wear scrotal support for comfort WATCH FOR SIGNS OF INFECTION: (Usually appears 36-48 hours after surgery) Increased temperature (101 degrees Fahrenheit or higher) Redness or swelling Increased pain Foul odor or drainage If you have any questions, please call your doctor at the number listed on your follow-up instructions. Follow Up Care 05/31/2024 09:01:07 With:XAVIER NEWMAN MD Address: [address] [place] [address] [address] [facility] [place] [address] [phone] When: Unknown Comments:Follow-up as needed Follow-up as scheduled [facility] 04-09-2025 Anesthesiology Consult note Patient: SCOTT TALBERT Age: 78 years Sex: Female : 1945 Associated Diagnoses: None Author: ROEL WALLACE DO Postoperative Information Post Operative Info: Post op day: Post Anesthesia Care Unit. Patient location: PACU. Assessment Postanesthesia assessment Vitals. Mental status: at preoperative baseline. Respiratory function: respirations are non-labored, Stable. Respiratory support: none. CV function: Stable. Cardiovascular support: none. Pain: Satisfactory. Nausea status: Satisfactory. Postoperative hydration status: within normal limits. Notes: Patient is sufficiently recovered from anesthesia to participate in the evaluation. No follow-up care needed. No complications post-anesthesia.. Digitally Signed by ROEL WALLACE DO on 06/02/2024 03:41 PM [id number] Summary of episode note Discharge Instructions Thank you for allowing [facility] to assist you with your healthcare needs. The following is importantdischarge information regarding your hospital visit. Your Care Team COLE CARDONA DO What to do next Follow Up Appointments Follow Up with XAVIER NEWMAN MD Where:[address] [facility] [address] [facility] [place] [address] [phone] Additional Information: Follow-up as needed Follow-up as scheduled Allergies Benadryl Itching predniSONE Rash Medications Please ask your primary doctor or pharmacist before taking any other medication not listed, including over the counter drugs, herbal medications, vitamins and or supplements as they may interact withyour home medications. What How Much When Instructions Last Dose Unchanged amLODIPine (amLODIPine 5 mg oral tablet) 1 tab(s) by mouth Once a day (in the morning) Unchanged apixaban (Eliquis 2.5 mg oral tablet) 1 tab(s) by mouth Two (2) times a day Unchanged atorvastatin (atorvastatin 40 mg oral tablet) 1 tab(s) by mouth Once a day (in the morning) Unchanged betamethasone topical (betamethasone dipropionate 0.05% topical cream) 1 application Topical Once a day Unchanged ferrous sulfate (ferrous sulfate 325 mg (65 mg elemental iron) oral delayed release tablet) 1 tab(s) by mouth Two (2) times a day Unchanged meclizine (meclizine 25 mg oral tablet) 1 tab(s) by mouth Three (3) times a day as needed for as needed for dizziness pt takes daily in AM Unchanged venlafaxine (venlafaxine 37.5 mg oral tablet) 1 tab(s) by mouth Once a day (in the morning) Please take this list to your next doctor s visit. Bring all medications you take, including over the counter medications, herbals and other supplements with you to your doctor s visit. Patients and families are reminded to discard old lists and to update any records with all medication providers or retail pharmacies. Education Materials Bronchoscopy Discharge Instructions __X__ Do NOT eat or drink any fluids until you get home. __X__ Progress slowing with clear liquids (water, tea, broth, jello or aleah tessa), then resume your previous diet and medications if you have no difficulty swallowing. __X__ Some coughing of blood-tinged mucus is to be expected. Notify your doctor if you have any severe chest pain or excessive coughing of bright red blood. If you have any questions, please call your doctor at the number listed on your follow-up instructions. Follow all instructions given to you by your doctor. You have received Fentanyl and Versed as part of your sedation. [place] SAME DAY SURGERY DISCHARGE INSTRUCTIONS PLEASE FOLLOW THE INSTRUCTIONS BELOW MARKED WITH AN X: __X_Regular Diet: Start with clear liquids, then soup and crackers. Gradually add other foods unless otherwise instructed by your surgeon __X_Drink extra fluids ACTIVTY: __X_Since you have had anesthetic, it would be advisable not to drive, drink alcohol, or make majordecisions over the next 24 hours. You may require more rest tonight and tomorrow __X_Do not drive vehicle while taking narcotics and as directed by your Surgeon ____Restrict activity as follows: ____Do not have sexual intercourse. Nothing in the vagina-No tampons or Douching ____No heavy lifting, pushing, or straining ____Elevate operative limb ____Ice as directed __X_Follow all written and verbal instructions given to you by your Doctor ____Other: BATHING/SHOWERING ____Sponge bathe until office visit. ____Sitting in tub of warm water may relieve discomfort ____May tub bathe ____May shower in 24-48 hours with clean linen unless otherwise instructed by your Doctor DRESSING: ____Keep operative area clean and dry ____Check the operative area for signs of bleeding. Apply pressure to the bleeding site if necessary. ____Change drip pad as needed ____Wear scrotal support for comfort WATCH FOR SIGNS OF INFECTION: (Usually appears 36-48 hours after surgery) Increased temperature (101 degrees Fahrenheit or higher) Redness or swelling Increased pain Foul odor or drainage If you have any questions, please call your doctor at the number listed on your follow-up instructions. Additional Information VACCINATE! IT SAVES LIVES! Members of the community who have not yet received the COVID-19 vaccine and would like to receive it can visit one of [facility] vaccine clinics. There are many vaccine clinic locations within the [facility]. For locations and available times, please visit https://gettheshot.coronavirus.[place].gov/. It is important to note that some COVID mobile vaccine clinics are held outdoors and may be canceled in rainy or stormy conditions. To learn more about pediatric vaccinations (ages 5-11), we invite you to visit the [employer] webpage. https://[email or web address].org/pages/[email or web address]-Nmbkp-Xpcbitznhmr-Eeqqpedbai-Qfzis-Yui stions.htmlTo learn more about the COVID-19 vaccine, we invite you to visit the CDC website for a list of frequently asked questions.https://www.cdc.gov/coronavirus/2019-ncov/vaccines/faq.html [facility] Patient Portal Access Instructions: Stay connected with your healthcare team and access your personal medical information anytime with the [facility] Patient Portal. Please follow the directions below to create your [facility] account: 1.Access the email account you provided upon registration to the hospital/physician office.2.Look for an invitation email from [facility].3.Open the email and access the invitation link: AcceptInvitation to [facility].4.Fill in the required davidson to create your account. To access your account, visit [facility]. Click the blue button labeled Access Patient Portal and then log in with the username and password that you created in the steps above. You will be able to view your test results, lab results, a summary of your visits, upcoming appointments and more. There is also a convenient messaging option where you can send secure messages to your p rovider. In addition, you will have the ability to download any documents or summaries to your computer and/or send the information securely to a physician. Remember that your healthcare information is confidential, so carefully consider who you will allowto register on the [facility] Patient Portal for access to your information. You can also access the [facility] Patient Portal on the [facility] melania. Simply click on Patient Portal and then log into your account. If you would like to receive a full copy of your medical records, please contact the [facility] Medical Records Department by calling [phone], Friday through Friday between 8 a.m. and 4:30 p.m. HOW TO SAFELY DISPOSE OF PRESCRIPTION MEDICATIONS Please use one of the following methods to safely dispose of your unused medications. 1.Use a drug disposal kit: the drug disposal pouch allows you to safely discard your old and unuseddrugs. Ask your nurse to give you one when you are discharged.2.Visit a local take-back location: Many local pharmacies and police departments have programs that collect old and unwanted prescriptiondrugs. Call your local pharmacy or go to http://[employer]/0O3Fd5e to find one close to you.3.Make use of household items: Use cat litter or old coffee grounds to dispose medications if other options arenot available. Mix your drugs with these household products, seal them in an airtight container andthrow it into the garbage. Call [facility]: [phone] to be sure your drugs can be disposed of in this way. Some medicines may require a different approach.4.Never flush your medications down the toilet. IF YOU HAVE BEEN PRESCRIBED AN OPIOID FOR PAIN If you have been prescribed an opioid (such as hydrocodone, oxycodone or morphine), it is critical to understand the possible side effects and risks of opioid pain medications. Even when taken as directed, opioids can have several side effects including: Tolerance, meaning you might need to take more of a medication for the same pain relief. Nausea, vomiting and/or constipation. Sleepiness, dizziness, dry mouth, confusion, depression or itching. Physical dependence, meaning you have withdrawal symptoms when a medication is stopped, can develop within a few days. KNOW YOUR RESPONSIBILITIES It is important to know exactly how much and how often to take the opioid pain medications you are prescribed. Never take opioids in higher amounts or more often than prescribed. Do not combine opioids with alcohol or other drugs that cause drowsiness, such as benzodiazepines, also known as benzos, including diazepam and alprazolam, muscle relaxants or sleep aids. Never sell or share prescription opioids. This is illegal. Store opioids in a secure place and out of reach of others (including children, family, friends and visitors). The last page of this document has been signed and retained as a CHART COPY. Signatures Patient Education Materials 2-OPD Bronchoscopy (12/2017)(CUSTOM) 1- [facility] General Discharge Guidelines (11/08/2022)(CUSTOM) Medication Leaflets My discharge plan and instructions have been reviewed and explained to me and I,SCOTT TALBERT understand my current condition and have read and understand these discharge instructions. I have received a written copy of the plan/instructions. If I have questions, I am aware that I should contact my doctor. 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 Flexible fiberoptic bronchoscopy. 2. EBUS Bronchoscopy. Consent The procedure bronchoscopy, potential complications such as a pneumothorax, hypoxemia, respiratory failure is bleeding were discussed and she signed the consent. Indication Complete collapse of the left lower lobe Pre-Procedure Exam Patient alert, follows command no respite distress O2 saturation 96% at rest on room air. Procedural Sedation As per anesthesia Technique The flexible bronchoscope was advanced first through the LMA, vocal cords have normal movement and structure, bronchoscope was back to the trachea has normal mucosa, gisela was shifted to the left. Bronchoscope was advanced down the right main bronchus where the entire right right bronchial tree was inspected, mucosa was slightly inflamed, all orifice were patent and no mass lesion no hemorrhage no purulent secretion. Scope was withdrawn to the gisela where the advanced down the left main bronchus, distal bronchus was completely occluded with thick gelatinous mucous plug,. At that time O2 saturations dropped to 81%. I removed the bronchoscope, and patient was intubated and placed on mechanical ventilation to assist for the management of this quite thick and gelatinous mucous plugging. After intubation, the bronchoscope was advanced through the endotracheal tube all the way to the left main bronchus, and multiple suctioning were attempted, with also use of negative pressure of bronchoscope to break down and remove this mucous plug, did not the patency of left main bronchus was established then the bronchoscope was advanced to left upper lobe bronchus where it was all patent andthere is no obstructive lesion. Bronchoscope was advanced down the left lower lobe bronchus where the superior segment was opened, right after the takeoff of the superior segment of left lower lobe there was an occlusive gelatinous/mucous plugs and this was also removed, then and the knees there was appearance of a mass lesion without complete occlusion, probably including at least 50% of the lumen to the basal segment of the left lower lobe, brushing, 4 biopsies and washing were done and sent for cytology and pathology, subsequently bronchoscope was withdrawn without much of difficulties. Certainly it takes a lot of time and effort to establish patency of the left main bronchus and leftlower lobe bronchus. Procedure #2 EBUS Bronchoscopy: EBUS Bronchoscopy was advanced through the endotracheal tube, advanced all the way down to the gisela level, there is no subcarinal lymphadenopathy, the right side wasall normal no adenopathy, no mediastinal adenopathy at all, there is a small tiny left hilar adenopathy present measuring around 6 to 7 mm was not biopsied. Findings 1. Complete occlusion of the proximal left main bronchus with very thick gelatinous/mucous plugging. 2. Complete occlusion of the left lower lobe bronchus beyond the takeoff of the superior segment ofleft lower bronchus with thick mucoid plug that was removed, 3. H over with 50% occlusion of the left lower lobe bronchus distal to the takeoff of left lower lobe superior segment bronchus, biopsy was done. Complications None patient was extubated, oxygen saturation went up to 95% at rest on room air in the PACU. Estimated Blood Loss None Assessment/Plan Orders: Final Surgical Pathology Report, 06/02/24 13:13:00 EDT Pathology Tissue Request, 06/02/24 13:13:00 EDT, Collected, 06/02/24 13:13:00 EDT, Kalani Mobley,AP Specimen, left lower lung Digitally Signed by XAVIER NEWMAN MD on 06/02/2024 01:50 PM [id number] Note* Exam Date Time Procedure Performing Provider Status 06/02/24 12:57 PM XR Chest 1 View ELLIS WHITE; Auth (Verified) [id number] ORIGINAL EXAMINATION: ONE XRAY VIEW OF THE CHEST 06/02/2024 12:57 pm COMPARISON: 06/03/2022 HISTORY: ORDERING SYSTEM PROVIDED HISTORY: Reason for Exam: s/p bronchoscopy FINDINGS: Stable cardiomediastinal silhouette. Atherosclerotic aorta. Consolidation and volume loss noted in the left lower lobe. Masslike density seen in the left infrahilar region. No large pleural effusion or pneumothorax. Osseous structures are unremarkable. Multilevel degenerative changes of the spine. IMPRESSION: Persistent masslike density in the left infrahilar region with collapse/volume loss in the left lower lobe No pneumothorax following bronchoscopy I have personally reviewed the images of this examination and agree with the resident's findings and interpretation. Interpreted by: Ellis White MD Preliminary Report By: Hillary Hemphill Electronically signed By Ellis White MD Dictated Date: 06/02/2024 1:18:35 PM Prelim Date: 06/02/2024 1:25:28 PM Sign Date: 06/02/2024 1:25:28 PM Ordering Provider: XAVIER NEWMAN [id number] History and physical note Physical Exam Vitals and Measurements T: 36.4 C (Temporal Artery) HR: 104 RR: 20 BP: 140/85 SpO2: 96% HT: 157.5 cm WT: 81 kg Weight Dosing Weight: 81 kg (06/02/24) Lab Results 04 09:47 WBC: 8.1 Hgb: 13.6 Hct: 41.1 Platelet: 308 Protime: 11.0 PT International Ratio: 1.0 Glucose Level: 150 H Sodium Level: 141 Potassium Level: 3.5 BUN: 13.0 Creatinine Lvl (s): 0.36 L Problem List/Past Medical History Ongoing Dehydration Hypertension Historical KOLBY (acute kidney injury) Pulmonary emboli Procedure/Surgical History Tonsillectomy: 1966 Repair of umbilical hernia Total replacement of left knee joint Total replacement of right knee joint Medications Home Medications (7) Active amLODIPine 5 mg oral tablet 5 mg = 1 tab(s), Oral, qAM atorvastatin 40 mg oral tablet 40 mg = 1 tab(s), Oral, qAM betamethasone dipropionate 0.05% topical cream 1 melania, Topical, qDay Eliquis 2.5 mg oral tablet 2.5 mg = 1 tab(s), Oral, BID ferrous sulfate 325 mg (65 mg elemental iron) oral delayed release tablet 325 mg = 1 tab(s), Oral, BID meclizine 25 mg oral tablet 25 mg = 1 tab(s), PRN, Oral, TID venlafaxine 37.5 mg oral tablet 37.5 mg = 1 tab(s), Oral, qAM Allergies Benadryl Itching predniSONE Rash Social History Alcohol Use: Never., 06/03/2022 Home/Environment Living situation: Home/Independent. Safe place to go: Yes. Domestic Concerns: None. Lives In: Multilevel home, 1st floor bedroom, 1st floor bathroom, 1st floor laundry. Current Home Treatments cane. Professional Skilled Services or Special Community Resources None., 05/13/2024 Nutrition/Health Type of diet: Regular. Appetite Good. Eating Difficulties None., 05/13/2024 Substance Abuse Use: Never., 06/03/2022 Tobacco Nicotine Use: Never (less than 100 in lifetime)., 06/03/2022 Family History Arthritis 16-NOV-2013 16:49:04<$>: Brother and Brother. Coronary artery disease: Daughter. Diabetes: Mother and Daughter. Heart attack: Father and Brother. Heart disease: Father, Brother and Daughter. Health Status Family Member(s) Family Member(s) Relationship: Brother, Age: 54 Years Relationship: Daughter, Age: 53 Years Immunizations SARS-CoV-2 (COVID-19) mRNA-1273 vaccine: 0.25 unknown unit (07/03/21) SARS-CoV-2 (COVID-19) mRNA-1273 vaccine: 0.25 unknown unit (12/15/20) SARS-CoV-2 (COVID-19) mRNA-1273 vaccine: 0.5 unknown unit (05/03/20) SARS-CoV-2 (COVID-19) mRNA-1273 vaccine: 0.5 unknown unit (04/06/20) Code Status No qualifying data available. Digitally Signed by XAVIER NEWMAN MD on 06/02/2024 11:40 AM [id number] Anesthesiology Consult note Patient: SCOTT TALBERT Age: 78 years Sex: Female : 1945 Associated Diagnoses: None Author: MCKINLEY MIRELES MD Preoperative Information Time of last food or liquid consumption: 06/02/2024 00:00:00 Anesthesia history Patient's history. Family's history: negative. Health Status Allergies: Allergic Reactions (Selected) Severity Not Documented Benadryl- Itching. PredniSONE- Rash., Allergies (2) ActiveSeverityReaction BenadrylItching predniSONERash Current medications: (Selected) Documented Medications Documented Eliquis 2.5 mg oral tablet: 2.5 mg, 1 tab(s), Oral, BID, 180 tab(s), 0 Refill(s) amLODIPine 5 mg oral tablet: 5 mg, 1 tab(s), Oral, qAM, 0 Refill(s) atorvastatin 40 mg oral tablet: 40 mg, 1 tab(s), Oral, qAM, 0 Refill(s) betamethasone dipropionate 0.05% topical cream: 1 melania, Topical, qDay, 0 Refill(s) ferrous sulfate 325 mg (65 mg elemental iron) oral delayed release tablet: 325 mg, 1 tab(s), Oral, BID, 100 tab(s), 0 Refill(s) meclizine 25 mg oral tablet: 25 mg, 1 tab(s), Oral, TID, pt takes daily in AM, PRN: as needed for dizziness, 0 Refill(s) venlafaxine 37.5 mg oral tablet: 37.5 mg, 1 tab(s), Oral, qAM, 0 Refill(s), No qualifying data available Problem list: Medical Dehydration / SNOMED CT 45172836 / Confirmed Hypertension / SNOMED CT 8715101361 / Confirmed, Active Problems (24) Abnormal CAT scan Anxiety Arthritis At risk for falls Caregiver stress Chronic coughing Dehydration Depression Developmental delay Dilation of pulmonary artery Elevated blood sugar level Fatty liver Glasses Hard of hearing History of blood transfusion History of COVID-19 History of knee replacement History of umbilical hernia repair Hypercholesterolemia Hypertension Hypokalemia On anticoagulant therapy Thyroid nodule Vertigo Histories Past Medical History: Resolved KOLBY (acute kidney injury) (67434285): Onset in 2022 at 77 years. Resolved. Comments: 05/10/2024 EDT 9:02 EDT - Vianey Andrade RN r/t dehydration Pulmonary emboli (62607128): Onset in the month of 05/2022 at 76 years Resolved. Comments: 05/10/2024 EDT 9:06 HAOT Vianey Cruz RN placed on Coumadin 05/13/2024 EDT 11:28 EDT - CALIXTO Membreno Cynthia Lester spontaneous and aslo had a DVT may 2022 Family History: Heart disease Father Brother () Daughter () Heart attack Father Brother () Coronary artery disease Daughter () Arthritis 16-NOV-2013 16:49:04<$> Brother Brother Diabetes Mother Daughter () Procedure history: Tonsillectomy (978650426) in 1965 at 20 Years. Repair of umbilical hernia (69955545). Total replacement of left knee joint ([id number]). Total replacement of right knee joint (0852973328). Social History: Social & Psychosocial Habits Alcohol 06/02/2024 Use: Never Substance Abuse 06/02/2024 Use: Never Tobacco 06/02/2024 Tobacco Use: Never (less than 100 in l Home/Environment 06/02/2024 Living situation: Home/Independent Safe place to go: Yes Domestic Concerns None Lives In 1st floor bathroom, 1st floor bedroom, 1st floor laundry, Multilevel home Current Home Treatments cane Special Services and Community Resources None Nutrition/Health 06/02/2024 Type of diet: Regular Appetite Good Eating Difficulties None Physical Examination Vital Signs 06/02/2024 9:51 EDT Temperature Temporal Artery 36.4 DegC Peripheral Pulse Rate 104 bpm HI Respiratory Rate 20 br/min Systolic Blood Pressure Non-Invasive 140 mmHg Diastolic Blood Pressure Non-Invasive 85 mmHg Vital Signs (last 24 hrs) Last Charted Temp Yegwfngt33.4 DegC (JUN 02 09:51) DRI020 mmHg (JUN 02 09:51) DBP85 mmHg (JUN 02 09:51) Measurements from flowsheet : Measurements 06/02/2024 9:51 EDT Height 157.5 cm Height in inches 62 inch(es) Admission Weight 81 kg Weight Lbs 178.2 lb Weight Method Actual [place] Body Weight 50.12 kg Type of Scale Used Bed scale Admission Body Mass Index 32.65 m2 Pain assessment: Pain Assessment 06/02/2024 9:51 EDT Primary Pain Intensity 0 Primary Pain Nonverbal Response Appears restful Pain Scale Type 0-10 Pain scale . General: Alert and oriented, No acute distress. Airway: Mallampati classification: II (soft palate, fauces, uvula visible). Dentition Evaluation: Own teeth. Respiratory: Lungs are clear to auscultation. Cardiovascular: Normal rate. Heart Sounds: Normal. Review / Management Results review: Labs (Last four charted values) WBC 8.1(JUN 02) Hgb 13.6(JUN 02) Hct 41.1(JUN 02) Plt 308(JUN 02) Na 141(JUN 02) K 3.5(JUN 02) CO2 30(JUN 02) Cl 103(JUN 02) Cr L 0.36(JUN 02) BUN 13.0(JUN 02) Glucose H 150(JUN 02) Ca 9.6(JUN 02) PT 11.0(JUN 02) INR 1.0(JUN 02) PTT 28.3(JUN 02) , Lab results 06/02/2024 10:01 EDT Response to Advance Directive Request Unable to obtain 06/02/2024 9:56 EDT SN - Preop - CTm Pt Ready for OR/Proced 06/02/2024 9:56 06/02/2024 9:51 EDT Height 157.5 cm Height in inches 62 inch(es) Admission Weight 81 kg Weight Lbs 178.2 lb Weight Method Actual [place] Body Weight 50.12 kg Type of Scale Used Bed scale Admission Body Mass Index 32.65 m2 Temperature Temporal Artery 36.4 DegC Peripheral Pulse Rate 104 bpm HI Respiratory Rate 20 br/min Systolic Blood Pressure Non-Invasive 140 mmHg Diastolic Blood Pressure Non-Invasive 85 mmHg Primary Pain Intensity 0 Primary Pain Nonverbal Response Appears restful Pain Scale Type 0-10 Pain scale Heart Rhythm Regular Respirations Unlabored Respiratory Pattern Regular All Lobes Breath Sounds Expiratory wheeze, Friction rub Cough Non-Productive Oxygen Therapy Room air Oxygen Saturation 96 % Abdomen Description Non-distended, Soft Abdomen Palpation Non-Tender, Soft Bowel Sounds All Quadrants Present Urinary Elimination Voiding, no difficulties Skin Description [place] Skin Temperature Warm Skin Integrity Not intact Skin Moisture General Dry Neurological Symptoms Patient denies Extremity Movement Equal Characteristics of Speech Clear Level of Consciousness Alert Strength All Extremities Strong Tone All Extremities Normal Sensation All Extremities Intact Affect/Behavior Appropriate, Calm, Cooperative Orientation Oriented x 4 Assistive Device None Activity Status ADL Awake, Resting Standard Safety ID band on, Allergy Band on, Call device within reach, Bed in low position, Wheels locked, Upper/Half-Length side-rails up, Phone within reach, personal items within reach, Visitor atbedside, Safety level maintained, Non-Slip footwear Demonstrates Correct Call Light Use Yes 06/02/2024 9:50 EDT Antecubital Left 06/02/2024 20 gauge Peripheral IV Activity: Insert new site Peripheral IV Dressing Activity: Transparent dressing Peripheral IV Line Status/Patency: 10ml normal saline flush Peripheral IV Site Condition: No complications Peripheral IV Equipment: PRN Adaptor Peripheral IV Number of Attempts: 1 06/02/2024 9:49 EDT Individuals Taught Patient Learning Readiness Willing to learn Barriers to Learning None evident Teaching Method Explanation, Printed materials Preferred Spoken Language Austrian Preferred Written Language Austrian Surgical Site Infection Prevention SSI FAQ provided, Hand hygiene Infection Prevention Teaching Evaluation Verbalizes/Nonverbally indicates understanding Pre Procedure/Surgery Education Date/Time of procedure/surgery, Hospital gown requirement worn to OR, NPO, Responsible 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 driver for discharge Procedure/Surgical Teaching Evaluation Verbalizes/Nonverbally indicates understanding 06/02/2024 9:47 EDT WBC 8.1 10^3/mcL RBC 4.94 10^6/mcL Hgb 13.6 G/dL Hct 41.1 % MCV 83.3 fL MCH 27.5 pg MCHC 33.0 G/dL RDW 14.7 % Platelet 308 10^3/mcL MPV 8.4 fL APTT 28.3 seconds Protime 11.0 seconds PT International Ratio 1.0 ratio NA Fibrinogen >700 mg/dL HI Glucose Level 150 mg/dL HI Sodium Level 141 mEq/L Potassium Level 3.5 mEq/L Chloride 103 mEq/L CO2 30 mEq/L Electrolyte Balance 8.0 mEq/L BUN 13.0 mg/dL Creatinine Lvl (s) 0.36 mg/dL LOW Estimated Glomerular Filtration Rate 103 ml/min/1.73sqm NA BUN/Creatinine Ratio 36.1 ratio HI Calcium Lvl 9.6 mg/dL Creatinine Clearance Calc 100.26 mL/min Slide Review Man Indicated 06/02/2024 9:46 EDT Urinary Elimination Voiding, no difficulties Violence Risk Confused No Violence Risk Irritable No Violence Risk Boisterous No Violence Risk Verbal Threats No Violence Risk Physical Threats No Violence Risk Attacking Objects No Violence Risk Predictor Score 0 Violence Risk Intervention None Allergies Yes Consent Form Signed Yes Patient Dressed In Hospital gown Pre-op Preparation Glasses removed History & Physical Update On Chart Yes History & Physical On Chart Yes Obstructive Sleep Apnea Assess Completed Yes Belongings At Bedside Glasses, Pants, Shirt, Shoes, Socks, Undergarments NPO Status Less than 8 hours Allergy Band on and Verified Yes Patient ID Band on and Verified Yes Implants Verified Yes Last Fluid Intake 06/02/2024 4:00 Last Food Intake 06/01/2024 20:00 Last Void 06/02/2024 9:49 06/02/2024 9:40 EDT Designated Person #1 We May Share PHI Ildefonso Jiménez [phone] Designated Person #1 Relationship Sibling Privacy Restrictions Requested None Status N/A Sensory Deficits None Sleep Apnea Snore Yes Sleep Apnea Tired Yes Sleep Apnea Obstruction No Sleep Apnea Pressure Yes Sleep Apnea BMI No Sleep Apnea Age Yes Sleep Apnea Neck No Sleep Apnea Gender No Sleep Apnea Score 4 Diagnosed With Sleep Apnea No Advanced Directives Yes Advance Directive Type [place] Durable Power of Head Of Drama for Feura [place], [place] Declaration (Living Will) Advance Directive Location Indicates that [place] has been given copy Infectious Disease Symptoms Patient states no symptoms Infectious Disease Recent Exposure No Alcohol and Drug Use No Employee of Institutional Living No Health Care Employee No History of Exposure to TB No History of Positive Chest X-Ray for TB No History of Positive TB Skin Test No Homeless No Known Immunosuppression No Recent Immigrant No Resident of Institutional Living No Bloody Sputum No Fatigue No Fever No Loss of Appetite No Night Sweats No Persistent Cough > 3 Weeks Yes Weight Loss No Surgery Scheduled On Date/Time 06/02/2024 11:00 Patient Aware Date/Time Of Surgery Yes Arrival Time the Day of Surgery 06/02/2024 9:00 Patient Aware of Arrival Time Yes Pre-Op Patient Education NPO after midnight, No smoking after midnight, No makeup, No jewelry, Responsible Democrat, Aware of surgery location, Pre-op education done, Instructed to take ordered medications, Instructed to bring home medications, VTE prevention handout given, SSI prevention handout given, Clear liquids until arrival SN - Preprocedure Comments Spoke with patient, Verbalizes/Nonverbally indicates understanding Notification Attempts 06/01/24 1125 LM RE TIMES...TP Barriers to Learning None evident Teaching Method Demonstration, Explanation, Printed materials, Teach-back, Video/Educational TV Preferred Spoken Language Austrian Preferred Written Language Austrian Teaching Evaluation Verbalizes/Nonverbally indicates understanding Safety Brochure Information Reviewed Yes [place] Video Viewed No Patient's Current Physicians Patient's Current Physicians History of Malignant Hyperthermia No Discharge To, Anticipated Home with family care Prev Test Positive/Diagnosis w/COVID-19 No Current Quarantine/Isolated any Illness No Any Contact with Sick Animals/Birds No Traveled Anywhere in Last 30 Days No Lost Weight Unintentionally Recently No Eat Poorly Due to Decreased Appetite No Total MST Score 0 N/A Personal Devices, Patient Valuables Glasses Anesthesia/Transfusions Prior anesthesia, Prior transfusion Admission Note-Nursing Same Day Patient History 06/02/2024 9:38 EDT SN - Preop - CTm Pt in SDS Room 06/02/2024 9:30 06/01/2024 11:29 EDT Surgery Scheduled On Date/Time 06/02/2024 11:00 (Modified) Arrival Time the Day of Surgery 06/02/2024 9:00 (Modified) Pre-Op Patient Education NPO after midnight, No smoking after midnight, No makeup, No jewelry, Responsible Democrat, Aware of surgery location, Pre-op education done, Instructed to take ordered medications, Instructed to bring home medications, VTE prevention handout given, SSI prevention handout given, Clear liquids until arrival (Modified) Admission Note-Nursing Patient History PreTest (Modified) 06/01/2024 11:25 EDT Surgery Scheduled On Date/Time Date\\Time Correction Arrival Time the Day of Surgery Date\\Time Correction Notification Attempts 06/01/24 1125 LM RE TIMES...TP Admission Note-Nursing Date\\Time Correction . Assessment and Plan [place] [employer]esthesiologists (ASA) physical status classification: Class III. Anesthetic Preoperative Plan Anesthetic technique: General. Maintenance airway: Laryngeal mask airway. Risks discussed: nausea, vomiting, headache, sore throat, dental injury, hypotension, allergic reaction, serious complications. Informed consent: signed by patient. Notes: Scott was seen and examined by Mckinley wise MD. The medical record was reviewed. Consultations, lab results , radiographic results and cardiovascular studies examined and noted. Anesthesia was explained in detail and questions were invited and answered. We will proceed as outlined in the plan above.. Digitally Signed by MCKINLEY MIRELES MD on 06/02/2024 11:09 [id number]* Diagnosis Onset Date Resolution Status Admit Date Diabetes type 2, controlled chronic May 18, 2024 2:29pm Hypertension chronic May 18, 2024 2:29pm GI (gastrointestinal bleed) resolved May 18, 2024 2:29pm Refractory chronic cough resolved May 18, 2024 2:29pm Generalized weakness resolved Apri l 2024 11:35am Malignant cancer cells acute Ap 2024 2:35pm Metastasis to bone of unknow n primary acute June 23, 2024 2:35pm Anxiety acute June 30, 2024 6:41pm BPPV (benign paroxysmal positional vertigo) acute June 30 6:41pm Debility acute June 30, 2024 6:41pm DVT (deep venous thrombosis) acute June 30, 2024 6:41pm Essential (primary) hypertension acute June 30, 2024 6: 41pm Hyperlipidemia, unspecified acute June 30, 2024 6:41pm Iron deficiency anemia acute 2024 6:41pm Major depression acute June 30, 2024 6:41pm Metastasis to bone of unknow n primary acute June 30, 2024 6: 41pm Rash resolved June 30, 2024 6:41pm Metastasis to bone of unknow n primary acute July 28, 2024 2 :26pm [place] [employer] Work Phone: 1([phone]) 847-788703-25-2025 Evaluation note* Diagnosis Onset Date Resolution Status Admit Date Diabetes type 2, controlled chronic May 18, 2024 2:29pm Hypertension chronic May 18, 2024 2:29pm GI (gastrointestinal bleed) resolved March 25th, 2025 2:29pm Refractory chronic cough resolved May 18, 2024 2:29pm Generalized weakness resolved Apri l 2024 11:35am Malignant cancer cells acute Ap ril 2024 2:35pm Metastasis to bone of unknow n primary acute June 23, 2024 2:35pm Anxiety acute June 30, 2024 6:41pm BPPV (benign paroxysmal positional vertigo) acute June 30 6:41pm Debility acute June 30, 2024 6:41pm DVT (deep venous thrombosis) acute June 30, 2024 6:41pm Essential (primary) hypertension acute June 30, 2024 6: 41pm Hyperlipidemia, unspecified acute June 30, 2024 6:41pm Iron deficiency anemia acute Ma y 2024 6:41pm Major depression acute June 30, 2024 6:41pm Metastasis to bone of unknow n primary acute June 30, 2024 6: 41pm Rash resolved June 30, 2024 6:41pm Metastasis to bone of unknow n primary acute July 28, 2024 2 :26pm Disseminated cancer acute August 16, 2024 10:12am [facility] Work Phone: 1(402) 647-749603-25-2025 Evaluation note* Diagnosis Onset Date Resolution Status Admit Date Diabetes type 2, controlled chronic May 18, 2024 2:29pm Hypertension chronic May 18, 2024 2:29pm GI (gastrointestinal bleed) resolved May 18, 2024 2:29pm Refractory chronic cough resolved May 18, 2024 2:29pm Generalized weakness resolved Apri l 2024 11:35am Malignant cancer cells acute Ap ril 2024 2:35pm Metastasis to bone of unknow n primary acute June 23, 2024 2:35pm Anxiety acute June 30, 2024 6:41pm BPPV (benign paroxysmal positional vertigo) acute June 30 6:41pm Debility acute June 30, 2024 6:41pm DVT (deep venous thrombosis) acute June 30, 2024 6:41pm Essential (primary) hypertension acute June 30, 2024 6: 41pm Hyperlipidemia, unspecified acute June 30, 2024 6:41pm Iron deficiency anemia acute Ma 2024 6:41pm Major depression acute June 30, 2024 6:41pm Metastasis to bone of unknow n primary acute June 30, 2024 6: 41pm Rash resolved June 30, 2024 6:41pm Metastasis to bone of unknow n primary acute July 28, 2024 2 :26pm Disseminated cancer acute August 16, 2024 10:12am Metastasis to bone of unknow n primary acute August 24, 2024 2 :10pm [facility] Work Phone: 1(861) 691-136001-28-2025 Evaluation note* Diagnosis Onset Date Resolution Status Admit Date Weight loss, unintentional acute March 23, 2024 2:41pm GI (gastrointestinal bleed) resolved March 23, 2024 2:41pm Refractory chronic cough resolved March 23, 2024 2:41pm Diabetes type 2, controlled chronic May 18, 2024 2:29pm Hypertension chronic May 18, 2024 2:29pm GI (gastrointestinal bleed) resolved May 18, 2024 2:29pm Refractory chronic cough resolved May 18, 2024 2:29pm Generalized weakness resolved Apr2024 11:35am Malignant cancer cells acute Ap ril 2024 2:35pm Metastasis to bone of unknow n primary acute June 23, 2024 2:35pm Anxiety acute June 30, 2024 6:41pm BPPV (benign paroxysmal positional vertigo) acute June 30 6:41pm Debility acute June 30, 2024 6:41pm DVT (deep venous thrombosis) acute June 30, 2024 6:41pm Essential (primary) hypertension acute June 30, 2024 6: 41pm Hyperlipidemia, unspecified acute June 30, 2024 6:41pm Iron deficiency anemia acute 2024 6:41pm Major depression acute June 30, 2024 6:41pm Metastasis to bone of unknow n primary acute June 30, 2024 6: 41pm Rash acute June 30, 2024 6:41pm [facility] Work Phone: 1(156) 855-477201-07-2025 Evaluation note* Diagnosis Onset Date Resolution Status Admit Date Weight loss, unintentional acute March 02, 2024 1:09pm Chronic cough chronic February 1:09pm Diabetes type 2, controlled chronic March 02, 2024 1:09pm Weight loss, unintentional acute March 23, 2024 2:41pm GI (gastrointestinal bleed) resolved March 23, 2024 2:41pm Refractory chronic cough resolved March 23, 2024 2:41pm Diabetes type 2, controlled chronic May 18, 2024 2:29pm Hypertension chronic May 18, 2024 2:29pm GI (gastrointestinal bleed) resolved May 18, 2024 2:29pm Refractory chronic cough resolved May 18, 2024 2:29pm [facility] Work Phone: 1([phone]) 799-207501-07-2025 Evaluation note* Diagnosis Onset Date Resolution Status Admit Date Weight loss, unintentional acute March 02, 2024 1:09pm Chronic cough chronic February 1:09pm Diabetes type 2, controlled chronic March 02, 2024 1:09pm Weight loss, unintentional acute March 23, 2024 2:41pm GI (gastrointestinal bleed) resolved March 23, 2024 2:41pm Refractory chronic cough resolved March 23, 2024 2:41pm Diabetes type 2, controlled chronic May 18, 2024 2:29pm Hypertension chronic May 18, 2024 2:29pm GI (gastrointestinal bleed) resolved May 18, 2024 2:29pm Refractory chronic cough resolved May 18, 2024 2:29pm Generalized weakness acute Apri l 2024 11:35am [facility] Work Phone: 1([phone]) 500-411312-27-2024 Hospital Discharge instructions Patient Education 02/20/2024 17:01:47 Resources for People with Cancer Resources for People with Cancer You do not have to fight cancer alone. Reach out. Seek support from family, friends, and others whocare about you. Let other people assist you. It can help you feel better both during and after yourtreatment. Support groups When you have cancer, support groups can be a great help. Meeting and talking with others with cancer can help you cope. There are also support groups for families of people with cancer. To find a support group, talk to your hospital s patient education department. Ask your healthcare provider. Youcan also do a search for cancer support groups online. For more information Contact the sources below for more information about cancer and cancer support groups: [place] [employer] (ACS)916-989-7686npv.cancer.org National Cancer Cboxustun363-178-5607svw.cancer.gov Local resources Ask your healthcare provider about your local ACS or other support groups. Write the information here to keep it handy: [employer]. [address] [place] [address]. All rights reserved. This information is not intended as a substitute for professional medical care. Always follow [facility] professional's instructions. 02/20/2024 17:00:16 Food Poisoning or Gastroenteritis (Adult) Food Poisoning or Viral Gastroenteritis (Adult) You have a stomach illness that is likely either food poisoning or viral gastroenteritis. Food poisoning is illness that is passed along in food and affects the stomach and intestinal tract. It usually occurs from 1 to 24 hours after eating food that has spoiled. When it happens within a few hours of eating, it is often caused by toxins from bacteria in food that has not been cooked or refrigerated properly. Viral gastroenteritis is an illness from a virus that also affects the stomach and intestinal tract. Many people call it the stomach flu, but it has nothing to do with influenza. In fact, it can happen from food poisoning, but it can also happen when germs are passed from sxtffq-td-pufunx or contaminated surface (toothbrush, cutting board, toilet) to a person. Either illness can cause these symptoms: Abdominal pain and cramping Nausea Vomiting Diarrhea Fever and chills Loss of bowel control The symptoms of food poisoning usually last 1 to 2 days. The symptoms of viral gastroenteritis can sometimes last up to 7 days but usually end sooner. Antibiotics are not effective for either illness. Other causes of gastroenteritis include bacteria and parasites which are not discussed here. Home care Follow all instructions given by your healthcare provider. Rest at home for the next 24 hours, or until you feel better. Avoid caffeine, tobacco, and alcohol. These can make diarrhea, cramping, and pain worse. If taking medicines: Tejs-cai-pjvqnrx diarrhea or nausea medicines are generally OK unless you have bleeding, fever, or severe abdominal pain. You may use acetaminophen or NSAID medicines like ibuprofen or naproxen to reduce pain and fever. Don t use these if you have chronic liver or kidney disease, or ever had a stomach ulcer or gastrointestinal bleeding. Talk with your healthcare provider first. Don't use NSAID medicines if you are already taking one for another condition (like arthritis) or are on daily aspirin therapy (such as for heart disease or after a stroke). To prevent the spread of illness: Remember that washing with soap and water is the best way to prevent the spread of infection. Wash your hands before and after caring for a sick person. Dry your hands with a single use towel. Clean the toilet after each use. Wash your hands or use alcohol-based hand tubing machine tender before eating. Wash your hands or use alcohol-based hand tubing machine tender before and after preparing food. Keep in mind that people with diarrhea or vomiting should not prepare food for others. Wash your hands or use alcohol-based hand tubing machine tender after using cutting boards, counter-tops, and knives (and other utensils) that have been in contact with raw foods. Wash and then peel fruits and vegetables. Keep uncooked meats away from cooked and grvvq-cj-tqz foods. Use a food thermometer when cooking. Cook poultry to at least 165 F (74 C). Cook ground meat (beef,veal, pork, carreno) to at least 160 F (71 C). Cook fresh beef, veal, carreno, and pork to at least 145 F(63 C). Don t eat raw or undercooked eggs (poached or ivett side up), poultry, meat or unpasteurized milk and juices. Food and drinks The main goal while treating vomiting or diarrhea is to prevent dehydration. This is done by takingsmall amounts of liquids often. Keep in mind that liquids are more important than food right now. Drink only small amounts of liquids at a time. Don t force yourself to eat, especially if you are having cramping, vomiting, or diarrhea. Don t eat large amounts at a time, even if you are hungry. If you eat, avoid fatty, greasy, spicy, or fried foods. Don t eat dairy foods or drink milk if you have diarrhea. These can make diarrhea worse. The first 24 hours you can try: Oral rehydration solutions, available at grocery stores and pharmacies. Sports drinks are not a good choice if you are very dehydrated. They have too much sugar and not enough electrolytes. Soft drinks without caffeine Aleah tessa Water (plain or flavored) Decaf tea or coffee Clear broth, consomm , or bouillon Gelatin, ice pops, or frozen fruit juice bars The second 24 hours, if you are feeling better, you can add: Hot cereal, plain toast, bread, rolls, or crackers Plain noodles, rice, mashed potatoes, chicken noodle soup, or rice soup Unsweetened canned fruit (no pineapple) Bananas As you recover: Limit fat intake to less than 15 grams per day. Don t eat margarine, butter, oils, mayonnaise, sauces, gravies, fried foods, peanut butter, meat, poultry, or fish. Limit fiber. Don t eat raw or cooked vegetables, fresh fruits except bananas, and bran cereals. Limit caffeine and chocolate. Don t use spices or seasonings except salt. Resume a normal diet over time, as you feel better and your symptoms improve. If the symptoms come back, go back to a simple diet or clear liquids. Follow-up care Follow up with your healthcare provider, or as advised. If a stool sample was taken or cultures were done, call the healthcare provider for the results as instructed. Call 911 Call 911 if you have any of these symptoms: Trouble breathing Confusion Extreme drowsiness or trouble walking Loss of consciousness Rapid heart rate Chest pain Stiff neck Seizure When to seek medical advice Call your healthcare provider right away if any of these occur: Abdominal pain that gets worse Constant lower right abdominal pain Continued vomiting and inability to keep liquids down Diarrhea more than 5 times a day Blood in vomit or stool Dark urine or no urine for 8 hours, dry mouth and tongue, tiredness, weakness, or dizziness New rash You don t get better in 2 to 3 days Fever of 100.4 F (38 C) or higher, or as directed by your healthcare provider You have new symptoms of arthritis [id number] [employer]. [address] [place] [address], [place] [address]. All rights reserved. This information is not intended as a substitute for professional medical care. Always follow yourhealthcare professional's instructions. 02/20/2024 17:00:04 Bladder Infection, Female (Adult) Bladder Infection, Female (Adult) Urine is normally doesn't have any bacteria in it. But bacteria can get into the urinary tract fromthe skin around the rectum. Or they can travel in the blood from elsewhere in the body. Once they are in your urinary tract, they can cause infection in the urethra (urethritis), the bladder (cystitis), or the kidneys (pyelonephritis). The most common place for an infection is in the bladder. This is called a bladder infection. This is one of the most common infections in women. Most bladder infections are easily treated. They are not serious unless the infection spreads to the kidney. The phrases bladder infection, UTI, and cystitis are often used to describe the same thing. But they are not always the same. Cystitis is an inflammation of the bladder. The most common cause of cystitis is an infection. Symptoms The infection causes inflammation in the urethra and bladder. This causes many of the symptoms. Themost common symptoms of a bladder infection are: Pain or burning when urinating Having to urinate more often than usual Urgent need to urinate Only a small amount of urine comes out Blood in urine Abdominal discomfort. This is usually in the lower abdomen above the pubic bone. Cloudy urine Strong- or bad-smelling urine Unable to urinate (urinary retention) Unable to hold urine in (urinary incontinence) Fever Loss of appetite Confusion (in older adults) Causes Bladder infections are not contagious. You can't get one from someone else, from a toilet seat, or from sharing a bath. The most common cause of bladder infections is bacteria from the bowels. The bacteria get onto the skin around the opening of the urethra. From there, they can get into the urine and travel up to thebladder, causing inflammation and infection. This usually happens because of: Wiping improperly after urinating. Always wipe from front to back. Bowel incontinence Procedures such as having a catheter inserted Older age Not emptying your bladder. This can allow bacteria a chance to grow in your urine. Dehydration Constipation Sex Use of a diaphragm for control Treatment Bladder infections are diagnosed by a urine test. They are treated with antibiotics and usually clear up quickly without complications. Treatment helps prevent a more serious kidney infection. Medicines Medicines can help in the treatment of a bladder infection: Take antibiotics until they are used up, even if you feel better. It is important to finish them tomake sure the infection has cleared. You can use acetaminophen or ibuprofen for pain, fever, or discomfort, unless another medicine was prescribed. If you have chronic liver or kidney disease, talk with your healthcare provider before using these medicines. Also talk with your provider if you've ever had a stomach ulcer or gastrointestinal bleeding, or are taking blood-thinner medicines. If you are given phenazopydridine to reduce burning with urination, it will cause your urine to become a bright orange color. This can stain clothing. Care and prevention These self-care steps can help prevent future infections: Drink plenty of fluids to prevent dehydration and flush out your bladder. Do this unless you must restrict fluids for other health reasons, or your doctor told you not to. Proper cleaning after going to the bathroom is important. Wipe from front to back after using the toilet to prevent the spread of bacteria. Urinate more often. Don't try to hold urine in for a long time. Wear loose-fitting clothes and cotton underwear. Avoid tight-fitting pants. Improve your diet and prevent constipation. Eat more fresh fruit and vegetables, and fiber, and less junk and fatty foods. Avoid sex until your symptoms are gone. Avoid caffeine, alcohol, and spicy foods. These can irritate your bladder. Urinate right after intercourse to flush out your bladder. If you use control pills and have frequent bladder infections, discuss it with your doctor. Follow-up care Call your healthcare provider if all symptoms are not gone after 3 days of treatment. This is especially important if you have repeat infections. If a culture was done, you will be told if your treatment needs to be changed. If directed, you cancall to find out the results. If X-rays were done, you will be told if the results will affect your treatment. Call 911 Call 911 if any of the following occur: Trouble breathing Hard to wake up or confusion Fainting or loss of consciousness Rapid heart rate When to seek medical advice Call your healthcare provider right away if any of these occur: Fever of 100.4 F (38.0 C) or higher, or as directed by your healthcare provider Symptoms are not better by the third day of treatment Back or belly (abdominal) pain that gets worse Repeated vomiting, or unable to keep medicine down Weakness or dizziness Vaginal discharge Pain, redness, or swelling in the outer vaginal area (labia) [id number] [employer]. [address] [place] [address]. All rights reserved. This information is not intended as a substitute for professional medical care. Always follow yourhealthcare professional's instructions. Follow Up Care 02/20/2024 12:39:57 With:JYOTSNA CERVANTES Address: [address] [place] [address] Hematology [place] [address] [phone] [facility] (1) When:2-4 days Comments:Return to ED if symptoms worsen With:COLE CARDONA DO Address: [facility] [address] [address] [phone] When:2-4 days [facility] 12-27-2024 Note Discharge Instructions Thank you for allowing [facility] to assist you with your healthcare needs. The following is importantdischarge information regarding your hospital visit. Diagnosis from Today's Visit Gastroenteritis Tumor Urinary tract infection What to Do Next Instructions from Your Care Team No qualifying data available. Post Acute Orders No qualifying data available. You Need to Schedule the Following Appointments Follow Up with JYOTSNA CERVANTES When:Within 2-4 days Where:[address] [place] [address] Hematology [place] [address]- [phone] [facility] (1) Additional Information: Return to ED if symptoms worsen Follow Up with COLE CARDONA DO When:Within 2-4 days Where:[facility] [address] [place] [address] [phone] Allergies Benadryl predniSONE Medications Please ask your primary doctor or pharmacist before taking any other medication not listed, including over the counter drugs, herbal medications, vitamins and or supplements as they may interact withyour home medications. What How Much When Instructions Last Dose New cephalexin (cephalexin 500 mg oral capsule) 1 cap by mouth Every 12 hours Duration: 5 Days Printed Prescription New ondansetron (ondansetron 4 mg oral tablet, disintegrating) 1 tab(s) by mouth Every 6 hours as needed for Nausea/Vomiting Duration: 3 Days Printed Prescription Unchanged amLODIPine (amLODIPine 5 mg oral tablet) Unchanged apixaban (Eliquis 5 mg oral tablet) 1 tab(s) by mouth Two (2) times a day Duration: 120 Days Unchanged atorvastatin (atorvastatin 40 mg oral tablet) 1 tab(s) by mouth Once a day Unchanged atorvastatin (atorvastatin 40 mg oral tablet) Unchanged betamethasone topical (betamethasone dipropionate 0.05% topical cream) Unchanged cholecalciferol (Vitamin D3) 10 Microgram by mouth Every day Unchanged losartan (losartan 50 mg oral tablet) 1 tab(s) by mouth Once a day Unchanged meclizine (meclizine 25 mg oral tablet) Unchanged meclizine (meclizine 25 mg oral tablet) 1 tab(s) by mouth Once a day Unchanged pantoprazole (pantoprazole 40 mg oral enteric coated tablet) 1 tab(s) by mouth Two (2) times a day Unchanged venlafaxine (venlafaxine 37.5 mg oral tablet) 1 tab(s) by mouth Once a day Please take this list to your next doctor s visit. Bring all medications you take, including over the counter medications, herbals and other supplements with you to your doctor s visit. Patients and families are reminded to discard old lists and to update any records with all medication providers or retail pharmacies. Medication Leaflets cephalexin (sef a ZACK in) What is the most important information I should know about cephalexin? You should not use this medicine if you are allergic to cephalexin or to similar antibiotics, such as Ceftin, Cefzil, Omnicef, and others. Tell your doctor if you are allergic to any drugs, especially penicillins or other antibiotics. What is cephalexin? Cephalexin is a cephalosporin (SEF a low spor in) antibiotic that is used to treat bacterial infections of the lungs, ear, skin, bones, bladder, and kidneys. Cephalexin is used to treat infections in adults and children who are at least 1 year old. Cephalexin may also be used for purposes not listed in this medication guide. What should I discuss with my healthcare provider before taking cephalexin? You should not use this medicine if you are allergic to cephalexin or any other cephalosporin antibiotic (cefdinir, cefadroxil, cefoxitin, cefprozil, ceftriaxone, cefuroxime, Omnicef, and others). Tell your doctor if you have ever had: an allergy to any drug (especially penicillin); liver or kidney disease; or intestinal problems, such as colitis. The liquid form of cephalexin may contain sugar. This may affect you if you have diabetes. Tell your doctor if you are or breast-feeding. How should I take cephalexin? Follow all directions on your prescription label and read all medication guides or instruction sheets. Use the medicine exactly as directed. Do not use cephalexin to treat any condition that has not been checked by your doctor. Measure liquid medicine carefully. Use the dosing syringe provided, or use a medicine dose-measuring device (not a kitchen spoon). Use this medicine for the full prescribed length of time, even if your symptoms quickly improve. Skipping doses can increase your risk of infection that is resistant to medication. Cephalexin will not treat a viral infection such as the flu or a common cold. Do not share cephalexin with another person, even if they have the same symptoms you have. This medicine can affect the results of certain medical tests. Tell any doctor who treats you that you are using cephalexin. Store the tablets and capsules at room temperature away from moisture, heat, and light. Store the liquid medicine in the refrigerator. Throw away any unused liquid after 14 days. What happens if I miss a dose? Take the medicine as soon as you can, but skip the missed dose if it is almost time for your next dose. Do not take two doses at one time. What happens if I overdose? Seek emergency medical attention or call the Poison Help line at . Overdose symptoms may include nausea, vomiting, stomach pain, diarrhea, and blood in your urine. What should I avoid while taking cephalexin? Antibiotic medicines can cause diarrhea, which may be a sign of a new infection. If you have diarrhea that is watery or bloody, call your doctor before using anti-diarrhea medicine. What are the possible side effects of cephalexin? Get emergency medical help if you have signs of an allergic reaction (hives, difficult breathing, swelling in your face or throat) or a severe skin reaction (fever, sore throat, burning eyes, skin pain, red or purple skin rash with blistering and peeling). Call your doctor at once if you have: severe stomach pain, diarrhea that is watery or bloody (even if it occurs months after your last dose); unusual tiredness, feeling light-headed or short of breath; easy bruising, unusual bleeding, purple or red spots under your skin; a seizure; pale skin, cold hands and feet; yellowed skin, dark colored urine; fever, weakness; or pain in your side or lower back, painful urination. Common side effects may include: diarrhea; nausea, vomiting; indigestion, stomach pain; or vaginal itching or discharge. This is not a complete list of side effects and others may occur. Call your doctor for medical advice about side effects. You may report side effects to FDA at 7-853-EXO-9037. What other drugs will affect cephalexin? Tell your doctor about all your other medicines, especially: metformin; or probenecid. This list is not complete. Other drugs may affect cephalexin, including prescription and fmzc-jhu-maxyasj medicines, vitamins, and herbal products. Not all possible drug interactions are listed here. Where can I get more information? Your pharmacist can provide more information about cephalexin. Remember, keep this and all other medicines out of the reach of children, never share your medicines with others, and use this medication only for the indication prescribed. Every effort has been made to ensure that the information provided by [employer]. [employer] is accurate, up-to-date, and complete, but no guarantee is made to that effect. Drug information contained herein may be time sensitive. [employer] information has been compiled for use by healthcare practitioners and consumers in the [place] and therefore [employer] does not warrant that uses outside of the [place] are appropriate, unless specifically indicated otherwise. The [employer] drug information does not endorse drugs, diagnose patients or recommend therapy. The [employer] drug information isan informational resource designed to assist licensed healthcare practitioners in caring for their p atients and/or to serve consumers viewing this service as a supplement to, and not a substitute for, the expertise, skill, knowledge and judgment of healthcare practitioners. The absence of a warningfor a given drug or drug combination in no way should be construed to indicate that the drug or drug combination is safe, effective or appropriate for any given patient. [facility] does not assume any responsibility for any aspect of healthcare administered with the aid of information [facility] provides. The information contained herein is not intended to cover all possible uses, directions, precautions, warnings, drug interactions, allergic reactions, or adverse effects. If you have questions about the drugs you are taking, check with your doctor, nurse or pharmacist. Copyright 6747-9079 [employer] [facility]. Version: 12. Revision Date: 09/25/2022. ondansetron (oral) (on DELMER se karina) What is the most important information I should know about ondansetron? Tell your doctor about all your other medicines. Some drugs should not be used with ondansetron. What is ondansetron? Ondansetron is used to prevent nausea and vomiting that may happen with certain cancer medicines (chemotherapy), or after surgery, or radiation treatment . Ondansetron may be used for purposes not listed in this medication guide. What should I discuss with my health care provider before taking ondansetron? You should not use ondansetron if you are allergic to it or similar medicines (dolasetron, granisetron, palonosetron). Some drugs should not be used with ondansetron. Your treatment plan may change if you also use apomorphine. Tell your doctor if you have or have ever had: an electrolyte imbalance (such as low blood levels of potassium or magnesium); congestive heart failure, slow heartbeats; heart rhythm disorder such as long QT syndrome (in you or a family member); an obstruction in the stomach or intestines, a change in bowel habits; a surgery on your stomach or intestines; or severe liver disease. The orally disintegrating tablet may contain phenylalanine and could be harmful if you have phenylketonuria (PKU). Tell your doctor if you also use stimulant medicine, opioid medicine, herbal products, or medicine for depression, mental illness, Parkinson's disease, migraine headaches, serious infections, or prevention of nausea and vomiting. An interaction with ondansetron could cause a serious condition called serotonin syndrome. Tell your doctor if you are or . Ondansetron is not approved for use by anyone younger than 4 years old. How should I take ondansetron? Follow all directions on your prescription label and read all medication guides or instruction sheets. Use the medicine exactly as directed. Ondansetron is usually taken just before surgery, chemotherapy, or radiation treatment. Follow yourdoctor's dosing instructions very carefully. Measure liquid medicine with the supplied measuring device (not a kitchen spoon). To take the orally disintegrating tablet: Keep the tablet in its blister pack until you are ready to take it. Open the package and peel back the foil. Use dry hands to remove the orally disintegrating tablet and place it in your mouth. Do not push a tablet through the foil or you may damage the tablet. Allow the orally disintegrating tablet to dissolve in your mouth without chewing. Do not swallow whole. Store in the original container at room temperature away from moisture, heat, and light. Store liquid medicine in an upright position. What happens if I miss a dose? Ondansetron is used when needed. If you are on a dosing schedule, skip any missed dose. Do not use two doses at one time. What happens if I overdose? Seek emergency medical attention or call the Poison Help line at . What should I avoid while taking ondansetron? Follow your doctor's instructions about any restrictions on food, beverages, or activity. What are the possible side effects of ondansetron? Get emergency medical help if you have signs of an allergic reaction: hives, difficult breathing, swelling of your face, lips, tongue, or throat. Seek medical attention right away if you have symptoms of serotonin syndrome such as: agitation, hallucinations, fever, sweating, shivering, fast heart rate, muscle stiffness, twitching, loss of coordination, nausea, vomiting, or diarrhea. Seek emergency medical help if you have signs of a heart attack: chest pain that spreads to your jaw or shoulder, nausea, and sweating. Call your doctor at once if you have: severe stomach pain, bloating, constipation, or any change in bowel habits; or dizziness, feeling lightheaded, fainting, slow, fast, or uneven heartbeats. Common side effects may include: diarrhea or constipation; headache; shortness of breath, rapid breathing, fast heartbeats; or feeling unwell, tiredness. This is not a complete list of side effects and others may occur. Call your doctor for medical advice about side effects. You may report side effects to FDA at 0-822-TOG-8535. What other drugs will affect ondansetron? Ondansetron can cause a serious heart problem. Your risk may be higher if you also use certain other medicines for infections, asthma, heart problems, high blood pressure, depression, mental illness,cancer, malaria, or HIV. Many drugs can affect ondansetron. This includes prescription and vwbl-bbd-fdtmkep medicines, vitamins, and herbal products. Not all possible interactions are listed here. Tell your doctor about all other medicines you use. Where can I get more information? Your doctor or pharmacist can provide more information about ondansetron. Remember, keep this and all other medicines out of the reach of children, never share your medicines with others, and use this medication only for the indication prescribed. Every effort has been made to ensure that the information provided by [employer]. [employer]') is accurate, up-to-date, and complete, but no guarantee is made to that effect. Drug information contained herein may be time sensitive. [employer] information has been compiled for use by healthcare practitioners and consumers in the [place] and therefore [employer] does not warrant that uses outside of the [place] are appropriate, unless specifically indicated otherwise. The [employer] drug information does not endorse drugs, diagnose patients or recommend therapy. The [employer] drug information isan informational resource designed to assist licensed healthcare practitioners in caring for their p atients and/or to serve consumers viewing this service as a supplement to, and not a substitute for, the expertise, skill, knowledge and judgment of healthcare practitioners. The absence of a warningfor a given drug or drug combination in no way should be construed to indicate that the drug or drug combination is safe, effective or appropriate for any given patient. [employer] does not assume any responsibility for any aspect of healthcare administered with the aid of information [employer] provides. The information contained herein is not intended to cover all possible uses, directions, precautions, warnings, drug interactions, allergic reactions, or adverse effects. If you have questions about the drugs you are taking, check with your doctor, nurse or pharmacist. Copyright 6603-4924 [employer]. Version: 17.. Revision Date: 11/18/2023. Education Materials Resources for People with Cancer You do not have to fight cancer alone. Reach out. Seek support from family, friends, and others whocare about you. Let other people assist you. It can help you feel better both during and after yourtreatment. Support groups When you have cancer, support groups can be a great help. Meeting and talking with others with cancer can help you cope. There are also support groups for families of people with cancer. To find a support group, talk to your hospital s patient education department. Ask your healthcare provider. Youcan also do a search for cancer support groups online. For more information Contact the sources below for more information about cancer and cancer support groups: [employer] [employer] (ACS)834-857-3459vbx.cancer.org National Cancer Biltbkwkf263-084-2229wdv.cancer.gov Local resources Ask your healthcare provider about your local ACS or other support groups. Write the information here to keep it handy: [employer]. [address] [place] [address]. All rights reserved. This information is not intended as a substitute for professional medical care. Always follow yourhealthcare professional's instructions. Food Poisoning or Viral Gastroenteritis (Adult) You have a stomach illness that is likely either food poisoning or viral gastroenteritis. Food poisoning is illness that is passed along in food and affects the stomach and intestinal tract. It usually occurs from 1 to 24 hours after eating food that has spoiled. When it happens within a few hours of eating, it is often caused by toxins from bacteria in food that has not been cooked or refrigerated properly. Viral gastroenteritis is an illness from a virus that also affects the stomach and intestinal tract. Many people call it the stomach flu, but it has nothing to do with influenza. In fact, it can happen from food poisoning, but it can also happen when germs are passed from qgymxs-hb-qhlcgp or contaminated surface (toothbrush, cutting board, toilet) to a person. Either illness can cause these symptoms: Abdominal pain and cramping Nausea Vomiting Diarrhea Fever and chills Loss of bowel control The symptoms of food poisoning usually last 1 to 2 days. The symptoms of viral gastroenteritis can sometimes last up to 7 days but usually end sooner. Antibiotics are not effective for either illness. Other causes of gastroenteritis include bacteria and parasites which are not discussed here. Home care Follow all instructions given by your healthcare provider. Rest at home for the next 24 hours, or until you feel better. Avoid caffeine, tobacco, and alcohol. These can make diarrhea, cramping, and pain worse. If taking medicines: Hzmm-tmg-kjhtcof diarrhea or nausea medicines are generally OK unless you have bleeding, fever, or severe abdominal pain. You may use acetaminophen or NSAID medicines like ibuprofen or naproxen to reduce pain and fever. Don t use these if you have chronic liver or kidney disease, or ever had a stomach ulcer or gastrointestinal bleeding. Talk with your healthcare provider first. Don't use NSAID medicines if you are already taking one for another condition (like arthritis) or are on daily aspirin therapy (such as for heart disease or after a stroke). To prevent the spread of illness: Remember that washing with soap and water is the best way to prevent the spread of infection. Wash your hands before and after caring for a sick person. Dry your hands with a single use towel. Clean the toilet after each use. Wash your hands or use alcohol-based hand tubing machine tender before eating. Wash your hands or use alcohol-based hand tubing machine tender before and after preparing food. Keep in mind that people with diarrhea or vomiting should not prepare food for others. Wash your hands or use alcohol-based hand tubing machine tender after using cutting boards, counter-tops, and knives (and other utensils) that have been in contact with raw foods. Wash and then peel fruits and vegetables. Keep uncooked meats away from cooked and wymuk-zg-upk foods. Use a food thermometer when cooking. Cook poultry to at least 165 F (74 C). Cook ground meat (beef,veal, pork, carreno) to at least 160 F (71 C). Cook fresh beef, veal, carreno, and pork to at least 145 F(63 C). Don t eat raw or undercooked eggs (poached or ivett side up), poultry, meat or unpasteurized milk and juices. Food and drinks The main goal while treating vomiting or diarrhea is to prevent dehydration. This is done by takingsmall amounts of liquids often. Keep in mind that liquids are more important than food right now. Drink only small amounts of liquids at a time. Don t force yourself to eat, especially if you are having cramping, vomiting, or diarrhea. Don t eat large amounts at a time, even if you are hungry. If you eat, avoid fatty, greasy, spicy, or fried foods. Don t eat dairy foods or drink milk if you have diarrhea. These can make diarrhea worse. The first 24 hours you can try: Oral rehydration solutions, available at grocery stores and pharmacies. Sports drinks are not a good choice if you are very dehydrated. They have too much sugar and not enough electrolytes. Soft drinks without caffeine Aleah tessa Water (plain or flavored) Decaf tea or coffee Clear broth, consomm , or bouillon Gelatin, ice pops, or frozen fruit juice bars The second 24 hours, if you are feeling better, you can add: Hot cereal, plain toast, bread, rolls, or crackers Plain noodles, rice, mashed potatoes, chicken noodle soup, or rice soup Unsweetened canned fruit (no pineapple) Bananas As you recover: Limit fat intake to less than 15 grams per day. Don t eat margarine, butter, oils, mayonnaise, sauces, gravies, fried foods, peanut butter, meat, poultry, or fish. Limit fiber. Don t eat raw or cooked vegetables, fresh fruits except bananas, and bran cereals. Limit caffeine and chocolate. Don t use spices or seasonings except salt. Resume a normal diet over time, as you feel better and your symptoms improve. If the symptoms come back, go back to a simple diet or clear liquids. Follow-up care Follow up with your healthcare provider, or as advised. If a stool sample was taken or cultures were done, call the healthcare provider for the results as instructed. Call 911 Call 911 if you have any of these symptoms: Trouble breathing Confusion Extreme drowsiness or trouble walking Loss of consciousness Rapid heart rate Chest pain Stiff neck Seizure When to seek medical advice Call your healthcare provider right away if any of these occur: Abdominal pain that gets worse Constant lower right abdominal pain Continued vomiting and inability to keep liquids down Diarrhea more than 5 times a day Blood in vomit or stool Dark urine or no urine for 8 hours, dry mouth and tongue, tiredness, weakness, or dizziness New rash You don t get better in 2 to 3 days Fever of 100.4 F (38 C) or higher, or as directed by your healthcare provider You have new symptoms of arthritis [id number] [employer]. [address] [place] [address]. All rights reserved. This information is not intended as a substitute for professional medical care. Always follow yourhealthcare professional's instructions. Bladder Infection, Female (Adult) Urine is normally doesn't have any bacteria in it. But bacteria can get into the urinary tract fromthe skin around the rectum. Or they can travel in the blood from elsewhere in the body. Once they are in your urinary tract, they can cause infection in the urethra (urethritis), the bladder (cystitis), or the kidneys (pyelonephritis). The most common place for an infection is in the bladder. This is called a bladder infection. This is one of the most common infections in women. Most bladder infections are easily treated. They are not serious unless the infection spreads to the kidney. The phrases bladder infection, UTI, and cystitis are often used to describe the same thing. But they are not always the same. Cystitis is an inflammation of the bladder. The most common cause of cystitis is an infection. Symptoms The infection causes inflammation in the urethra and bladder. This causes many of the symptoms. Themost common symptoms of a bladder infection are: Pain or burning when urinating Having to urinate more often than usual Urgent need to urinate Only a small amount of urine comes out Blood in urine Abdominal discomfort. This is usually in the lower abdomen above the pubic bone. Cloudy urine Strong- or bad-smelling urine Unable to urinate (urinary retention) Unable to hold urine in (urinary incontinence) Fever Loss of appetite Confusion (in older adults) Causes Bladder infections are not contagious. You can't get one from someone else, from a toilet seat, or from sharing a bath. The most common cause of bladder infections is bacteria from the bowels. The bacteria get onto the skin around the opening of the urethra. From there, they can get into the urine and travel up to thebladder, causing inflammation and infection. This usually happens because of: Wiping improperly after urinating. Always wipe from front to back. Bowel incontinence Procedures such as having a catheter inserted Older age Not emptying your bladder. This can allow bacteria a chance to grow in your urine. Dehydration Constipation Sex Use of a diaphragm for control Treatment Bladder infections are diagnosed by a urine test. They are treated with antibiotics and usually clear up quickly without complications. Treatment helps prevent a more serious kidney infection. Medicines Medicines can help in the treatment of a bladder infection: Take antibiotics until they are used up, even if you feel better. It is important to finish them tomake sure the infection has cleared. You can use acetaminophen or ibuprofen for pain, fever, or discomfort, unless another medicine was prescribed. If you have chronic liver or kidney disease, talk with your healthcare provider before using these medicines. Also talk with your provider if you've ever had a stomach ulcer or gastrointestinal bleeding, or are taking blood-thinner medicines. If you are given phenazopydridine to reduce burning with urination, it will cause your urine to become a bright orange color. This can stain clothing. Care and prevention These self-care steps can help prevent future infections: Drink plenty of fluids to prevent dehydration and flush out your bladder. Do this unless you must restrict fluids for other health reasons, or your doctor told you not to. Proper cleaning after going to the bathroom is important. Wipe from front to back after using the toilet to prevent the spread of bacteria. Urinate more often. Don't try to hold urine in for a long time. Wear loose-fitting clothes and cotton underwear. Avoid tight-fitting pants. Improve your diet and prevent constipation. Eat more fresh fruit and vegetables, and fiber, and less junk and fatty foods. Avoid sex until your symptoms are gone. Avoid caffeine, alcohol, and spicy foods. These can irritate your bladder. Urinate right after intercourse to flush out your bladder. If you use control pills and have frequent bladder infections, discuss it with your doctor. Follow-up care Call your healthcare provider if all symptoms are not gone after 3 days of treatment. This is especially important if you have repeat infections. If a culture was done, you will be told if your treatment needs to be changed. If directed, you cancall to find out the results. If X-rays were done, you will be told if the results will affect your treatment. Call 911 Call 911 if any of the following occur: Trouble breathing Hard to wake up or confusion Fainting or loss of consciousness Rapid heart rate When to seek medical advice Call your healthcare provider right away if any of these occur: Fever of 100.4 F (38.0 C) or higher, or as directed by your healthcare provider Symptoms are not better by the third day of treatment Back or belly (abdominal) pain that gets worse Repeated vomiting, or unable to keep medicine down Weakness or dizziness Vaginal discharge Pain, redness, or swelling in the outer vaginal area (labia) [id number] [employer]. [address] [place] [address]. All rights reserved. This information is not intended as a substitute for professional medical care. Always follow yourhealthcare professional's instructions. Additional Information VACCINATE! IT SAVES LIVES! Members of the community who have not yet received the COVID-19 vaccine and would like to receive it can visit one of [facility] vaccine clinics. There are many vaccine clinic locations within the [facility]. For locations and available times, please visit www.[email or web address].[place].gov/. It is important to note that some COVID mobile vaccine clinics are held outdoors and may be canceled in rainy or stormy conditions. To learn more about pediatric vaccinations (ages 5-11), we invite you to visit the [facility] webpage. [email or web address].[email or web address].org/pages/[email or web address]-Iovgi-Vlepedwqmuf-Kdannyamlp-Sjqzg-Uwt stions.htmlTo learn more about the COVID-19 vaccine, we invite you to visit the CDC website for a list of frequently asked questions. https://www.cdc.gov/coronavirus/2019-ncov/vaccines/faq.html [facility] Patient Portal Access Instructions: Stay connected with your healthcare team and access your personal medical information anytime with the [facility] Patient Portal. If you would like a full copy of your medical records please contact the [facility] Medical Records Department Friday through Friday between 8a.m. and 4:30p.m. Please follow the directions below to access the portal: 1.Access the email account you provided upon [facility].2.Look for an invitation email from [facility].3.Open the email and access the invitation link: Accept Invitation to [facility].Fill in the required davidson to create your account. Sign into [email or web address] with your username and password that you created in the above steps to stay up to date. You can then view a summary of results, a summary of your visits, and the ability to download your summaries to your computer or send the information securely to a physician. Remember that your healthcare information is confidential, so carefully consider who you will allow to register on the [facility] Patient Portal for access to your information. You can also access the [facility] Patient Portal on the [employer] melania. Simply click on Health Records under [employer] - innovate | mentor | investta and then click on the [facility] logo. HOW TO SAFELY DISPOSE OF PRESCRIPTION MEDICATIONS Please use one of the following methods to safely dispose of your unused medications. 1.Use a drug disposal kit: the drug disposal pouch allows you to safely discard your old and unuseddrugs. Ask your nurse to give you one when you are discharged.2.Visit a local take-back location: Many local pharmacies and police departments have programs that collect old and unwanted prescriptiondrugs. Call your local pharmacy or go to http://bit.[employer]/5A2Lo3o to find one close to you.3.Make use of household items: Use cat litter or old coffee grounds to dispose medications if other options arenot available. Mix your drugs with these household products, seal them in an airtight container andthrow it into the garbage. Call [facility]: [phone] to be sure your drugs can be disposed of in this way. Some medicines may require a different approach.4.Never flush your medications down the toilet. IF YOU HAVE BEEN PRESCRIBED AN OPIOIDS FOR PAIN If you have been prescribed an opioid (such as hydrocodone, oxycodone or morphine), it is critical to understand the possible side effects and risks of opioid pain medications. Even when taken as directed, opioids can have several side effects including: Tolerance, meaning you might need to take more of a medication for the same pain relief. Nausea, vomiting and/or constipation. Sleepiness, dizziness, dry mouth, confusion, depression or itching. Physical dependence, meaning you have withdrawal symptoms when a medication is stopped ? this can develop within a few days. KNOW YOUR RESPONSIBILITIES It is important to know exactly how much and how often to take the opioid pain medications you are prescribed. Never take opioids in higher amounts or more often than prescribed. Do not combine opioids with alcohol or other drugs that cause drowsiness, such as benzodiazepines, also known as benzos,including diazepam and alprazolam, muscle relaxants or sleep aids. Never sell or share prescriptionopioids. This is illegal. Store opioids in a secure place and out of reach of others (including children, family, friends and visitors). The last page(s) of this document has been signed and retained as a CHART COPY Signatures Patient Education Materials Resources for People with Cancer Food Poisoning or Gastroenteritis (Adult) Bladder Infection, Female (Adult) Medication Leaflets cephalexin, ondansetron (oral) My discharge plan and instructions have been reviewed and explained to me and IBRIE MARGARET A understand my current condition and have read and understand these discharge instructions. I have received a written copy of the plan/instructions. If I have questions, I am aware that I should contact my doctor. 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 The colon is the last part of the digestive tract, where stool, also called feces, is formed. If you have lower GI bleeding, you may see blood in or on your stool. It may be bright red. Lower GI bleeding often stops without treatment. Continued or heavy bleeding needs emergency treatment at the hospital. What are the causes? Lower GI bleeding may be caused by: A condition that causes pouches to form in the colon over time (diverticulosis). Swelling and irritation (inflammation) in areas with diverticulosis (diverticulitis). Inflammation of the colon (inflammatory bowel disease). Swollen veins in the rectum (hemorrhoids). Painful tears in the anus (anal fissures), often caused by passing hard stools. Cancer of the colon or rectum. Noncancerous growths (polyps) of the colon or rectum. A bleeding disorder that impairs the formation of blood clots and causes easy bleeding (coagulopathy). An abnormal weakening of a blood vessel where an artery and a vein come together (arteriovenous malformation). What increases the risk? You are more likely to develop this condition if: You are older than 60 years of age. You take aspirin or NSAIDs on a regular basis. You take anticoagulant or antiplatelet drugs. You have a history of high-dose X-ray treatment (radiation therapy) of the colon. You recently had a colon polyp removed. What are the signs or symptoms? Symptoms of this condition include: Bright red blood or blood clots coming from your rectum. Bloody stools. Black or maroon-colored stools. Pain or cramping in the abdomen. Weakness or dizziness. Racing heartbeat. How is this diagnosed? This condition may be diagnosed based on: Your symptoms and medical history. A physical exam. During the exam, your health care provider will check for signs of blood loss, such as low blood pressure and a rapid pulse. Tests, such as: ?Flexible sigmoidoscopy. In this procedure, a flexible tube with a camera on the end is used to examine your anus and the first part of your colon to look for the source of bleeding. ?Colonoscopy. This is similar to a flexible sigmoidoscopy, but the camera can extend all the way tothe uppermost part of your colon. ?Blood tests to measure your red blood cell count and to check for coagulopathy. ?An imaging study of your colon to look for a bleeding site. In some cases, you may have X-rays taken after a dye or radioactive substance is injected into your bloodstream (angiogram). How is this treated? Treatment for this condition depends on the cause of the bleeding. Heavy or persistent bleeding is treated at the hospital. Treatment may include: Getting fluids through an IV tube inserted into one of your veins. Getting blood through an IV tube (blood transfusion). Stopping bleeding through high-heat coagulation, injections of certain medicines, or applying surgical clips. This can all be done during a colonoscopy. Having a procedure that involves first doing an angiogram and then blocking blood flow to the bleeding site (embolization). Stopping some of your regular medicines for a certain amount of time. Having surgery to remove part of the colon. This may be needed if bleeding is severe and does not respond to other treatment. Follow these instructions at home: Take ewoh-eyj-fyonflo and prescription medicines only as told by your health care provider. You mayneed to avoid aspirin, NSAIDs, or other medicines that increase bleeding. Eat foods that are high in fiber. This will help keep your stools soft. These foods include whole grains, legumes, fruits, and vegetables. Eating 1 3 prunes each day works well for many people. Drink enough fluid to keep your urine clear or pale yellow. Keep all follow-up visits as told by your health care provider. This is important. Contact a health care provider if: Your symptoms do not improve. Get help right away if: Your bleeding increases. You feel light-headed or you faint. You feel weak. You have severe cramps in your back or abdomen. You pass large blood clots in your stool. Your symptoms get worse. This information is not intended to replace advice given to you by your health care provider. Make sure you discuss any questions you have with your health care provider. Document Released: 06/27/2016 Document Revised: 06/04/2019 Document Reviewed: 06/27/2016 [facility] Patient Education 2019 Photos to Photos. Follow Up Care 12/31/2023 06:29:45 With:XAVIER NEWMAN MD Address: [address] [facility] [address] [facility] [address]- [phone] When:1-2 days Comments:Recommend that you follow-up as an outpatient to obtain bronchoscopy and lung consolidation With:MELISSA ORTIZ MD Address: [address] [facility] [place] [address]- [phone] When:1-2 days Comments:Please follow-up as an outpatient with GI if you decide to proceed with this With:COLE CARDONA DO Address: [facility] [address] [place] [phone] When:1-2 days Comments:Please call the office to schedule a hospital follow-up appointment. [facility] 11-09-2024 Discharge summary Date of Service 01/03/2024 Discharge Diagnosis Acute blood loss anemia Acute lower GI bleed History of unprovoked pulmonary embolism on chronic anticoagulation Acute supratherapeutic INR Newly diagnosed left lower lobe consolidation Newly diagnosed left hepatic lobe exophytic vascular malformation Chronic essential hypertension Chronic hyperlipidemia Chronic dizziness Chronic anxiety depression Hospital Course Patient is a 78-year-old female with past medical history significant for unprovoked pulmonary embolism diagnosed in May 2022 for which she is on chronic anticoagulation with Coumadin, hypertension, hyperlipidemia, chronic dizziness, anxiety and depression. Patient was admitted to [facility] on 12/31/2023 after presenting with hematochezia for 3 to 4days prior to arrival. Upon arrival to the [place] emergency department, vital signs showed heart rate of 114 with vital signs otherwise unremarkable. Significant lab work showed leukocyte count 11.9, hemoglobin of 8.6 (preciously 13.2), INR of 6.1, otherwise unremarkable. CT angiogram GI bleed protocol was performed in the emergency department which showed no extravasation of contrast to suggest active gastrointestinal bleed with incidental findings of cecum and proximal ascending colon thickening which is possibly infectious/inflammatory versus neoplastic, left lower thorax consolidation. GI was consulted and recommending colonoscopy for colon thickening, which patient politely declined. Recommending patient continue on PPI twice daily to help prevent GI bleed. CT thorax was recommended, showing left hepatic lobe exophytic vascular malformation which is possibly a hemangioma, L4 vertebral body 1.4 cm sclerotic lesion which is possibly a bone island althoughmetastatic disease cannot be excluded for which nuclear bone scan or PET/CT may be considered. Pulmonology was consulted. Recommending outpatient bronchoscopy for new left lower lobe area of concern. INR subtherapeutic on admission which was reversed with Kcentra and vitamin K. Patient expressed concerns that she would like to stop taking Coumadin and resume on Eliquis. Prescription sent. At thistime patient is optimized for discharge. Encouraged to follow-up with pulmonology and her PCP. Recommend to follow-up with GI if she would like to proceed with a colonoscopy. On exam today, patient is dressed in her street clothes, resting comfortably in the bed. She statesthat she is ready to go home. Denies nausea, vomiting, chest pain or shortness of breath. Agreeableto follow up with specialties. Plan of care discussed with patient and grandson over the phone. All questions answered. Patient verbalized understanding is agreeable to plan of care. Discussed with my collaborating physician Dr. Myers. This dictation was performed using voice recognition software and may include grammatical and/or spelling errors. Allergies Benadryl predniSONE Consults Consult to Physician - Ordered -- 01/01/24 11:04:00 ANGEL HAIDER ZUOLIANG MD, Routine, GI bleed Consult to Physician - Ordered -- 01/02/24 10:47:00 TRENT HAIDER NIHAD MD, Routine, Abnormal CT, concern for mucus plugging or endobronchial lesion. Imaging Results and Diagnostics CT Thorax w/ Contrast Result Date: January 01, 2024 Verified By: BRAYDEN DAVIS MD CLINICAL STATEMENT: IMPRESSION: Soft tissue density at the proximal portion of the left inferior lobebronchus results in atelectasis of most of the left lower lobe. Findings areindeterminate and may represent mucous plugging versus bronchogenic neoplasm,consider bronchoscopy if clinically warranted. Left hilar adenopathy. Findings may be reactive versus neoplastic.Recommend attention on follow-up. Dilated main pulmonary artery, findings may be seen with pulmonaryhypertension. 1.7 cm right thyroid lobe nodule. Recommend nonemergent thyroid ultrasoundfor further evaluation. I have personally reviewed the images ofthis examination and agree with theresident's findings and interpretation. CT Angio GI Bleeding Scan Result Date: December 31, 2023 Verified By: TRELL LYN MD CLINICAL STATEMENT: IMPRESSION: 1. No gross intraluminal contrast extravasation of the stomach, small bowel,or colon, to suggest active gastrointestinal hemorrhage.2. At the cecum and proximal ascending colon, there is diffuse wallthickening with heterogeneous enhancement possibly inflammatory/infectiousprocess versus neoplastic process. Correlation clinical finding GI consultwould be useful. There are multiple mildly enlarged nodes at the rightabdomen, adjacent the proximal colon.3. Lower thorax demonstrates moderate consolidation of the left lower lobe.Correlation clinical findings and follow-up CT thorax may be useful.4. At the anteromedial left hepatic lobe, there is an small slightlyexophytic vascular malformation, possibly hemangioma, measuring approximately2 x 1.5 cm. Finding was not as well visualized on the prior study.5. At the L4 vertebral body, there is a nonspecific 1.4 cm sclerotic lesion,possibly bone island although metastasis cannot be excluded in patient withhistory of neoplastic disease.Nuclear medicine bone scan or PET-CT study may be useful for furtherevaluation, if clinically indicated. Physical Exam Vitals and Measurements T: 37.7 C (Oral) TMIN: 36.6 C (Oral) TMAX: 37.7 C (Oral) HR: 104 RR: 18 BP: 121/65 SpO2: 92% Weight Dosing Weight: 85.3 kg (12/31/23) General: No acute distress. Alert and Appropriate Skin: No rash. Warm, Dry, Intact Lungs: Bilaterally diminished breath sounds with no crepitation or wheeze. Unlabored Cardiovascular: Heart is regular rhythm, S1S2, No extra-audible heart tones Abdomen: Abdomen is soft, nontender. Bowel sounds positive all four quadrants. Extremities: No clubbing, cyanosis or edema. Peripheral pulses palpable. No calf tenderness. Adequate peripheral circulation. Neurological: The patient is awake, oriented to self, time, place and situation. Following simple commands, moving all extremities. Code Status No qualifying data available. Admission Date 12/31/2023 Discharge Date 01/03/2024 Patient Instructions GI is recommending colonoscopy but you are politely declining Please follow-up as an outpatient with GI if you decide to proceed with this Recommend that you continue PPI twice daily to help prevent GI bleed Please stop your Coumadin and restart on your Eliquis as requested. Preccription has been sent You were evaluated by pulmonology for concerns of mucous plugging. Recommend that you follow-up as an outpatient to obtain bronchoscopy and lung consolidation Recommend you obtain a PET scan or bone scan for L4 vertebral body 1.2 cm sclerotic lesion, this can be ordered by your PCP Please continue to follow along with your PCP Medications New Prescription apixaban (Eliquis 5 mg oral tablet)1 tab(s) by mouth two (2) times a day for 120 Days. Refills: 0. pantoprazole (pantoprazole 40 mg oral enteric coated tablet)1 tab(s) by mouth two (2) times a day. Refills: 0. Unchanged amLODIPine (amLODIPine 5 mg oral tablet) atorvastatin (atorvastatin 40 mg oral tablet)1 tab(s) by mouth once a day. atorvastatin (atorvastatin 40 mg oral tablet) betamethasone topical (betamethasone dipropionate 0.05% topical cream) cholecalciferol (Vitamin D3)10 Microgram by mouth every day. losartan (losartan 50 mg oral tablet)1 tab(s) by mouth once a day. meclizine (meclizine 25 mg oral tablet) meclizine (meclizine 25 mg oral tablet)1 tab(s) by mouth once a day. venlafaxine (venlafaxine 37.5 mg oral tablet)1 tab(s) by mouth once a day. Discontinued aspirin (aspirin 81 mg oral tablet, chewable)1 tab(s) Chewed once a day. celecoxib (CeleBREX 200 mg oral capsule)1 cap by mouth once a day. warfarin (warfarin 2 mg oral tablet) Follow Up Follow Up with XAVIER NEWMAN MD When:Within 1-2 days Where:[address] [facility] [address] [place] [phone] Additional Information: Recommend that you follow-up as an outpatient to obtain bronchoscopy and lung consolidation Follow Up with MELISSA ORTIZ MD When:Within 1-2 days Where:[address] [facility], [place] [phone] Additional Information: Please follow-up as an outpatient with GI if you decide to proceed with this Follow Up with COLE CARDONA DO When:Within 1-2 days Where:[facility] [address] [place] [address]- Additional Information: Please call the office to schedule a hospital follow-up appointment. Follow Up Appointments No qualifying data available. Follow Up Labs/Studies Discharge Labs No Follow-up Labs Discharge Studies No Follow-up Studies Discharge Diet Discharge Diet - Ordered -- No changes were made to your diet during your hospital stay. Please resume your pre hospitalization diet on discharge., 01/03/24 12:51:00 EST Discharge Activity Discharge Activity - Ordered -- Resume your pre-hospitalization activity, 01/03/24 12:51:00 EST Condition on Discharge Stable Discharge Disposition Home Information Provided To Patient and grandson over the phone Time Spent I have spent a total of 33 minutes reviewing the patient's diagnostic labs and testing, seeing and examining the patient, and documenting in the medical record. Please see assessment for further detail. Digitally Signed by CHANDA LONG on 01/03/2024 03:05 PM [id number] Note Discharge Instructions Thank you for allowing [facility] to assist you with your healthcare needs. The following is importantdischarge information regarding your hospital visit. Your Care Team COLE CARDONA DO Your Diagnosis Abnormal finding on GI tract imaging GI bleed What to do next Instructions From Your Doctor GI is recommending colonoscopy but you are politely declining Please follow-up as an outpatient with GI if you decide to proceed with this Recommend that you continue PPI twice daily to help prevent GI bleed Please stop your Coumadin and restart on your Eliquis as requested. Preccription has been sent You were evaluated by pulmonology for concerns of mucous plugging. Recommend that you follow-up as an outpatient to obtain bronchoscopy and lung consolidation Recommend you obtain a PET scan or bone scan for L4 vertebral body 1.2 cm sclerotic lesion, this can be ordered by your PCP Please continue to follow along with your PCP Follow Up Appointments Follow Up with XAVIER NEWMAN MD When:Within 1-2 days Where:[address] [facility] [address] [place] [phone] Additional Information: Recommend that you follow-up as an outpatient to obtain bronchoscopy and lung consolidation Follow Up with MELISSA ORTIZ MD When:Within 1-2 days Where:[address] [facility] [place] [address]- [phone] Additional Information: Please follow-up as an outpatient with GI if you decide to proceed with this Follow Up with COLE CARDONA DO When:Within 1-2 days Where:[facility] [place] [address]- Additional Information: Please call the office to schedule a hospital follow-up appointment. The Following Activity and Diet Have Been Ordered for You Discharge Activity - Ordered -- Resume your pre-hospitalization activity, 01/03/24 12:51:00 EST Discharge Diet - Ordered -- No changes were made to your diet during your hospital stay. Please resume your pre hospitalization diet on discharge., 01/03/24 12:51:00 EST The Following Equipment Has Been Ordered for You No qualifying data available. The Following Treatments Have Been Ordered for You Discharge Labs No qualifying data available. Discharge Radiology No qualifying data available. Other Therapies No qualifying data available. Post Acute Orders No qualifying data available. Someone Will Contact You Regarding These Home Health Referrals No home referrals have been ordered for you. No one will call you. Allergies Benadryl predniSONE Medications Please ask your primary doctor or pharmacist before taking any other medication not listed, including over the counter drugs, herbal medications, vitamins and or supplements as they may interact withyour home medications. What How Much When Instructions Last Dose New apixaban (Eliquis 5 mg oral tablet) 1 tab(s) by mouth Two (2) times a day Duration: 120 Days Pickup at [facility]/pharmacy #[id number] New pantoprazole (pantoprazole 40 mg oral enteric coated tablet) 1 tab(s) by mouth Two (2) times a day Pickup at [facility]/pharmacy #[id number] Unchanged amLODIPine (amLODIPine 5 mg oral tablet) Unchanged atorvastatin (atorvastatin 40 mg oral tablet) 1 tab(s) by mouth Once a day Unchanged atorvastatin (atorvastatin 40 mg oral tablet) Unchanged betamethasone topical (betamethasone dipropionate 0.05% topical cream) Unchanged cholecalciferol (Vitamin D3) 10 Microgram by mouth Every day Unchanged losartan (losartan 50 mg oral tablet) 1 tab(s) by mouth Once a day Unchanged meclizine (meclizine 25 mg oral tablet) Unchanged meclizine (meclizine 25 mg oral tablet) 1 tab(s) by mouth Once a day Unchanged venlafaxine (venlafaxine 37.5 mg oral tablet) 1 tab(s) by mouth Once a day Pharmacy Information [facility]/pharmacy #[id number]: [address], [place] [phone] What How Much When Comments Stop Taking aspirin (aspirin 81 mg oral tablet, chewable) 1 tab(s) Chewed Once a day Stop Taking celecoxib (CeleBREX 200 mg oral capsule) 1 cap by mouth Once a day Stop Taking warfarin (warfarin 2 mg oral tablet) Please take this list to your next doctor s visit. Bring all medications you take, including over the counter medications, herbals and other supplements with you to your doctor s visit. Patients and families are reminded to discard old lists and to update any records with all medication providers or retail pharmacies. Education Materials Lower Gastrointestinal Bleeding Lower gastrointestinal (GI) bleeding is the result of bleeding from the colon, rectum, or anal area. The colon is the last part of the digestive tract, where stool, also called feces, is formed. If you have lower GI bleeding, you may see blood in or on your stool. It may be bright red. Lower GI bleeding often stops without treatment. Continued or heavy bleeding needs emergency treatment at the hospital. What are the causes? Lower GI bleeding may be caused by: A condition that causes pouches to form in the colon over time (diverticulosis). Swelling and irritation (inflammation) in areas with diverticulosis (diverticulitis). Inflammation of the colon (inflammatory bowel disease). Swollen veins in the rectum (hemorrhoids). Painful tears in the anus (anal fissures), often caused by passing hard stools. Cancer of the colon or rectum. Noncancerous growths (polyps) of the colon or rectum. A bleeding disorder that impairs the formation of blood clots and causes easy bleeding (coagulopathy). An abnormal weakening of a blood vessel where an artery and a vein come together (arteriovenous malformation). What increases the risk? You are more likely to develop this condition if: You are older than 60 years of age. You take aspirin or NSAIDs on a regular basis. You take anticoagulant or antiplatelet drugs. You have a history of high-dose X-ray treatment (radiation therapy) of the colon. You recently had a colon polyp removed. What are the signs or symptoms? Symptoms of this condition include: Bright red blood or blood clots coming from your rectum. Bloody stools. Black or maroon-colored stools. Pain or cramping in the abdomen. Weakness or dizziness. Racing heartbeat. How is this diagnosed? This condition may be diagnosed based on: Your symptoms and medical history. A physical exam. During the exam, your health care provider will check for signs of blood loss, such as low blood pressure and a rapid pulse. Tests, such as: ? Flexible sigmoidoscopy. In this procedure, a flexible tube with a camera on the end is used to examine your anus and the first part of your colon to look for the source of bleeding. ? Colonoscopy. This is similar to a flexible sigmoidoscopy, but the camera can extend all the way to the uppermost part of your colon. ? Blood tests to measure your red blood cell count and to check for coagulopathy. ? An imaging study of your colon to look for a bleeding site. In some cases, you may have X-rays taken after a dye or radioactive substance is injected into your bloodstream (angiogram). How is this treated? Treatment for this condition depends on the cause of the bleeding. Heavy or persistent bleeding is treated at the hospital. Treatment may include: Getting fluids through an IV tube inserted into one of your veins. Getting blood through an IV tube (blood transfusion). Stopping bleeding through high-heat coagulation, injections of certain medicines, or applying surgical clips. This can all be done during a colonoscopy. Having a procedure that involves first doing an angiogram and then blocking blood flow to the bleeding site (embolization). Stopping some of your regular medicines for a certain amount of time. Having surgery to remove part of the colon. This may be needed if bleeding is severe and does not respond to other treatment. Follow these instructions at home: Take [id number] and prescription medicines only as told by your health care provider. You mayneed to avoid aspirin, NSAIDs, or other medicines that increase bleeding. Eat foods that are high in fiber. This will help keep your stools soft. These foods include whole grains, legumes, fruits, and vegetables. Eating 1 3 prunes each day works well for many people. Drink enough fluid to keep your urine clear or pale yellow. Keep all follow-up visits as told by your health care provider. This is important. Contact a health care provider if: Your symptoms do not improve. Get help right away if: Your bleeding increases. You feel light-headed or you faint. You feel weak. You have severe cramps in your back or abdomen. You pass large blood clots in your stool. Your symptoms get worse. This information is not intended to replace advice given to you by your health care provider. Make sure you discuss any questions you have with your health care provider. Document Released: 06/27/2016 Document Revised: 06/04/2019 Document Reviewed: 06/27/2016 [employer] Patient Education 2020 [employer] Additional Information VACCINATE! IT SAVES LIVES! Members of the community who have not yet received the COVID-19 vaccine and would like to receive it can visit one of [facility] vaccine clinics. There are many vaccine clinic locations within the [facility]. For locations and available times, please visit [email or web address].[place].gov/. It is important to note that some COVID mobile vaccine clinics are held outdoors and may be canceled in rainy or stormy conditions. To learn more about pediatric vaccinations (ages 5-11), we invite you to visit the [facility] webpage. [email or web address]/[email or web address] [email or web address].htmlTo learn more about the COVID-19 vaccine, we invite you to visit the CDC website for a list of frequently asked questions.https://www.cdc.gov/coronavirus/2019-ncov/vaccines/faq.html [facility] Patient Portal Access Instructions: Stay connected with your healthcare team and access your personal medical information anytime with the [facility] Patient Portal. Please follow the directions below to create your [facility] account: 1.Access the email account you provided upon registration to the hospital/physician office.2.Look for an invitation email from [facility].3.Open the email and access the invitation link: AcceptInvitation to [facility].4.Fill in the required davidson to create your account. To access your account, visit [facility]. Click the blue button labeled Access Patient Portal and then log in with the username and password that you created in the steps above. You will be able to view your test results, lab results, a summary of your visits, upcoming appointments and more. There is also a convenient messaging option where you can send secure messages to your p rovider. In addition, you will have the ability to download any documents or summaries to your computer and/or send the information securely to a physician. Remember that your healthcare information is confidential, so carefully consider who you will allowto register on the [facility] [employer] [facility] Patient Portal for access to your information. You can also access the [facility] Patient Portal on the [facility] melania. Simply click on Patient Portal and then log into your account. If you would like to receive a full copy of your medical records, please contact the [facility] Medical Records Department by calling [phone], Friday through Friday between 8 a.m. and 4:30 p.m. HOW TO SAFELY DISPOSE OF PRESCRIPTION MEDICATIONS Please use one of the following methods to safely dispose of your unused medications. 1.Use a drug disposal kit: the drug disposal pouch allows you to safely discard your old and unuseddrugs. Ask your nurse to give you one when you are discharged.2.Visit a local take-back location: Many local pharmacies and police departments have programs that collect old and unwanted prescriptiondrugs. Call your local pharmacy or go to http://[employer]/3L9Pa1d to find one close to you.3.Make use of household items: Use cat litter or old coffee grounds to dispose medications if other options arenot available. Mix your drugs with these household products, seal them in an airtight container andthrow it into the garbage. Call [facility]: [phone] to be sure your drugs can be disposed of in this way. Some medicines may require a different approach.4.Never flush your medications down the toilet. IF YOU HAVE BEEN PRESCRIBED AN OPIOID FOR PAIN If you have been prescribed an opioid (such as hydrocodone, oxycodone or morphine), it is critical to understand the possible side effects and risks of opioid pain medications. Even when taken as directed, opioids can have several side effects including: Tolerance, meaning you might need to take more of a medication for the same pain relief. Nausea, vomiting and/or constipation. Sleepiness, dizziness, dry mouth, confusion, depression or itching. Physical dependence, meaning you have withdrawal symptoms when a medication is stopped, can develop within a few days. KNOW YOUR RESPONSIBILITIES It is important to know exactly how much and how often to take the opioid pain medications you are prescribed. Never take opioids in higher amounts or more often than prescribed. Do not combine opioids with alcohol or other drugs that cause drowsiness, such as benzodiazepines, also known as benzos, including diazepam and alprazolam, muscle relaxants or sleep aids. Never sell or share prescription opioids. This is illegal. Store opioids in a secure place and out of reach of others (including children, family, friends and visitors). The last page of this document has been signed and retained as a CHART COPY. Signatures Patient Education Materials Lower Gastrointestinal Bleeding Medication Leaflets My discharge plan and instructions have been reviewed and explained to me and I,SCOTT TALBERT understand my current condition and have read and understand these discharge instructions. I have received a written copy of the plan/instructions. If I have questions, I am aware that I should contact my doctor. 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 Signature: Date/Time: Relationship to Patient: Witness Name/Signature: Date[facility]Time: [id number] Pulmonary Consult note Date of Service 01/03/2024 Reason for Consultation Abnormal CAT scan of the chest Referring Physician Hospitalist History of Present Illness Pleasant 78-year-old lady with history of hypertension, dyslipidemia, acute pulmonary emboli back in May 2022 for which had been on Coumadin, was admitted to [facility] on 12/31/2023 with lower GI bleed with severe anemia hemoglobin dropped to 7.3 g, INR was 6.1 this was rectified patient was transfused, GI service has been consulted. CT angio of the abdomen was done which picked up left lower lobe atelectasis disease followed by CAT scan of the chest which confirmed the presence of soft density at the left lower lobe with atelectasis so that I was asked to evaluate. Patient has no history of tobacco use, insignificant occupational exposure, no known history of malignancy, no history of asthma or COPD and no history of recurrent extract infection however she has had cough for the last 2 months dry, mild in nature no dyspnea no chest pain no pleuritic chest painand no hemoptysis so that I was evaluated. Review of Systems Patient appetite is intact, no weight loss, no headache no focal focal weaknesses. Extensive reviewof system was performed, all was described antibiotic the history otherwise negative Physical Exam Vitals and Measurements T: 37.7 C (Oral) TMIN: 36.6 C (Oral) TMAX: 37.7 C (Oral) HR: 104 RR: 18 BP: 121/65 SpO2: 92% Weight Dosing Weight: 85.3 kg (12/31/23) General patient is alert does not appear to be in any distress. Skin: Warm and dry no obvious rash or ulcerations. HEENT: The head is normal cephalic, pupils are equal, sclerae clear, mucous membranes are moist, mouth and throat without any exudate. Neck: No JVD or adenopathy. Cardiovascular: Normal heart sounds, regular rhythm no murmurs. Chest and lung exam: Normal excursion with symmetric chest wall movement. Chest wall is nontender. Lungs are clear, breath sounds equal there is no rales or rhonchi's no wheezing. Abdomen: No obvious visible abnormalities, soft, nontender, no organomegaly, no rigidity or tenderness. Neurologic: Alert moves all 4 extremities, no focal motor deficits present. Musculoskeletal: No clubbing, cyanosis or edema. Lymphatic: No evidence of lymphadenopathy or tenderness. Lab Results 01/02 04:39 WBC: 12.7 H Hgb: 8.1 L Hct: 24.7 L Platelet: 443 Neutrophil %: 74.8 Glucose Level: 120 H Sodium Level: 144 Potassium Level: 3.3 L BUN: 9.0 Creatinine Lvl (s): 0.48 L 01/01 13:58 Hgb: 9.3 L Hct: 27.7 L 01/01 08:27 Hgb: 8.5 L Hct: 26.0 L 01/01 02:55 WBC: 11.6 H Hgb: 7.9 L Hct: 23.9 L Platelet: 421 Neutrophil %: 69.4 Glucose Level: 127 H Sodium Level: 141 Potassium Level: 3.2 L BUN: 10.0 Creatinine Lvl (s): 0.54 Assessment/Plan 1. Soft density at the level left lower lobe bronchus, with corresponding atelectasis. 2. Chronic mild dry cough for 2 months 3. No history of tobacco use, significant occupation exposure or known history of malignancy. No history of recurrent respiratory infections. Plan: 1. Given the presence of new cough of duration of 2 months along with the CAT scan finding I did recommend diagnostic bronchoscopy for inspection of endobronchial tree,, the concern tumor versus mucous plugging. 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, I gave her my card Problem List/Past Medical History Ongoing KOLBY (acute kidney injury) Dehydration Hypertension Pulmonary emboli Procedure/Surgical History Tonsillectomy: 1966 Knee replacement Medications Inpatient acetaminophen, 650 mg= 2 tab(s), Oral, q6hr, PRN atorvastatin, 40 mg= 1 tab(s), Oral, qDay Dulcolax Laxative, 10 mg= 2 tab(s), Oral, qDay, PRN KCL, 40 mEq= 2 tab(s), Oral, Once Maalox, 30 mL, Oral, q2h, PRN meclizine, 25 mg= 1 tab(s), Oral, qDay melatonin, 3 mg= 1 tab(s), Oral, qHS, PRN pantoprazole IV Push, 40 mg, IV Push, BIDAC Senokot S, 1 tab(s), Oral, BID, PRN Tylenol, 650 mg= 2 tab(s), Oral, q4h, PRN Tylenol, 650 mg= 1 supp, Rectal, q4h, PRN venlafaxine, 37.5 mg= 1 tab(s), Oral, qDay Zofran, 4 mg= 2 mL, IV Push, q4h, PRN Home amLODIPine 5 mg oral tablet aspirin 81 mg oral tablet, chewable, 81 mg= 1 tab(s), Chewed, qDay, Not taking atorvastatin 40 mg oral tablet, 40 mg= 1 tab(s), Oral, qDay atorvastatin 40 mg oral tablet betamethasone dipropionate 0.05% topical cream CeleBREX 200 mg oral capsule, 200 mg= 1 cap(s), Oral, qDay, Not taking losartan 50 mg oral tablet, 50 mg= 1 tab(s), Oral, qDay, Not taking meclizine 25 mg oral tablet, 25 mg= 1 tab(s), Oral, qDay meclizine 25 mg oral tablet venlafaxine 37.5 mg oral tablet, 37.5 mg= 1 tab(s), Oral, qDay Vitamin D3, 10 mcg= 1 tab(s), Oral, Daily, Not taking warfarin 2 mg oral tablet Allergies Benadryl predniSONE Social History Alcohol Use: Never., 06/03/2022 Home/Environment Domestic Concerns: None. Living situation: Home/Independent. Lives In: Multilevel home, 1st floor bedroom, 1st floor bathroom, 1st floor laundry., 06/03/2022 Nutrition/Health Type of diet: Regular. Appetite Good., 06/03/2022 Substance Abuse Use: Never., 06/03/2022 Tobacco Nicotine Use: Never (less than 100 in lifetime)., 06/03/2022 Family History Diabetes: Mother, Brother and Daughter. Heart disease: Father, Brother and Daughter. Health Status Family Member(s) Immunizations SARS-CoV-2 (COVID-19) mRNA-1273 vaccine: 0.25 unknown unit (07/03/21) SARS-CoV-2 (COVID-19) mRNA-1273 vaccine: 0.25 unknown unit (12/15/20) SARS-CoV-2 (COVID-19) mRNA-1273 vaccine: 0.5 unknown unit (05/03/20) SARS-CoV-2 (COVID-19) mRNA-1273 vaccine: 0.5 unknown unit (04/06/20) Digitally Signed by XAVIER NEWMAN MD on 01/03/2024 10:30 AM [id number] Note Date of Service 01/02/2024 Chief Complaint Patient seen and examined for hematochezia in the setting of a supratherapeutic INR, as well as endobronchial mucous plug or lesion. Subjective Patient is a 78-year-old female with past medical history significant for unprovoked pulmonary embolism diagnosed in May 2022 for which she is on chronic anticoagulation with Coumadin, hypertension, hyperlipidemia, chronic dizziness, anxiety and depression. Patient was admitted to [facility] on 12/31/2023 after presenting with hematochezia for 3 to 4 days prior to arrival. Upon arrival to the [place] emergency department, vital signs showed heart rate of 114 with vital signs otherwise unremarkable. Laboratory data showed leukocyte count 11.9, hemoglobin of 8.6 which is down from 13.2 in May 2022, INR of 6.1 with laboratory data otherwise unremarkable. CT angiogram GI bleed protocol was performed in the emergency department which showed no extravasation of contrast to suggest active gastrointestinal bleed with incidental findings of cecum and proximal ascending colon thickeningwhich is possibly infectious/inflammatory versus neoplastic, left lower thorax consolidation for which CT thorax was recommended, left hepatic lobe exophytic vascular malformation which is possibly ahemangioma, L4 vertebral body 1.4 cm sclerotic lesion which is possibly a bone island although metastatic disease cannot be excluded for which nuclear bone scan or PET/CT may be considered. Suprathera peutic INR was reversed with Kcentra and vitamin K. Today, CT thorax was performed which showed soft tissue density at the proximal portion of the leftinferior lobe bronchus resulting in atelectasis of most of the left lower lobe which may be relatedto mucous plugging or neoplasm. Pulmonology was consulted. Will hold off on reintroduction of anticoagulation at this time. Patient is favoring starting Eliquis on discharge. Objective Vitals and Measurements T: 36.6 C (Oral) TMIN: 36.6 C (Oral) TMAX: 36.9 C (Oral) HR: 97 RR: 18 BP: 128/70 SpO2: 93% Intake and Output 7AM Yesterday to 7AM Today Intake and Output (Last 24 hours) Intake Oral Intake 1210.00 Output Stool Count 0.00 Urine Count 6.00 Total Summary Total Intake 1210.00 Total Output 0.00 Fluid Balance 1210.00 Physical Exam Weight Dosing Weight: 85.3 kg (12/31/23) GENERAL: No acute distress. MOUTH: Moist membranes. NECK: Supple. CARDIOVASCULAR: S1 S2 heard, regular rate and rhythm, no murmurs. No JVD, no edema. RESPIRATORY: Diminished breath sounds in left lung base. ABDOMEN: Soft, nontender, nondistended, no rebound or guarding, bowel sounds present in all 4 quadrants. NEUROLOGIC: Awake, alert and oriented x3, no focal neurologic deficits. PSYCHIATRIC: Anxious to be discharged. Medications Medications (12) Active Scheduled: (4) atorvastatin 40 mg tablet 40 mg 1 tab(s), Oral, qDay meclizine 25 mg Tablet 25 mg 1 tab(s), Oral, qDay pantoprazole 40 mg VIAL 40 mg, IV Push, BIDAC venlafaxine 37.5 mg tablet 37.5 mg 1 tab(s), Oral, qDay Continuous: (0) PRN: (8) acetaminophen 325 mg Tablet 650 mg 2 tab(s), Oral, q6hr acetaminophen 325 mg Tablet 650 mg 2 tab(s), Oral, q4h acetaminophen 650 mg Suppository 650 mg 1 supp, Rectal, q4h Al hydrox/Mg hydrox/simethicone 200-200-20 mg/5 mL Susp UD 30 mL, Oral, q2h bisacodyl 5 mg EC tablet 10 mg 2 tab(s), Oral, qDay docusate-senna (Senokot S) 50 mg-8.6 mg Tablet 1 tab(s), Oral, BID melatonin 3 mg tablet 3 mg 1 tab(s), Oral, qHS ondansetron 2 mg/ 1 mL 2 mL INJ 4 mg 2 mL, IV Push, q4h Lab Results 01/01 13:58 Hgb: 9.3 L Hct: 27.7 L 01/01 08:27 Hgb: 8.5 L Hct: 26.0 L 01/01 02:55 WBC: 11.6 H Hgb: 7.9 L Hct: 23.9 L Platelet: 421 Neutrophil %: 69.4 Glucose Level: 127 H Sodium Level: 141 Potassium Level: 3.2 L BUN: 10.0 Creatinine Lvl (s): 0.54 12/31 19:34 Hgb: 8.3 L Hct: 25.2 L 12/31 14:21 Hgb: 9.2 L Hct: 27.8 L 12/31 07:41 Hgb: 8.5 L Hct: 26.5 L 12/31 05:51 Hgb: 8.5 L Hct: 26.0 L Imaging Results and Diagnostics CT Thorax w/ Contrast Result Date: January 01, 2024 Verified By: BRAYDEN DAVIS MD CLINICAL STATEMENT: IMPRESSION: Soft tissue density at the proximal portion of the left inferior lobe bronchus results in atelectasis of most of the left lower lobe. Findings are indeterminate and may represent mucous plugging versus bronchogenic neoplasm,consider bronchoscopy if clinically warranted. Left hilar adenopathy. Findings may be reactive versus neoplastic. Recommend attention on follow-up. Dilated main pulmonary artery, findings may be seen with pulmonary hypertension. 1.7 cm right thyroid lobe nodule. Recommend nonemergent thyroid ultrasound for further evaluation. I have personally reviewed the images of this examination and agree with the resident's findings and interpretation. EKG No new EKG. Assessment/Plan 1. Acute blood loss anemia suspect to be related to lower gastrointestinal bleed which is either caused or at least worsened by supratherapeutic INR. Status post 1 unit PRBC transfusion on arrival. Will transfuse if hemoglobin is under 7.0. 2. Acute lower gastrointestinal bleeding. CTA GI bleed protocol did show no evidence of active bleeding, but did show a colon wall thickening. Gastroenterology was consulted who recommended colonoscopy. Patient has never underwent colonoscopy. However, patient declined colonoscopy even after discuss ion of possible underlying malignancy. CEA was normal. Patient tolerating regular diet. 3. History of unprovoked pulmonary embolism on chronic anticoagulation with Coumadin with an acute supratherapeutic INR. Anticoagulation remains on hold. Would recommend at least 48 hours of anticoagulation holiday. Discussed with patient regarding possible reintroduction of anticoagulation on 01/03/2024, or waiting until outpatient follow-up with primary care provider. Discussed with patient regarding unprovoked pulmonary embolism and CT findings concern for possible underlying malignant process for which risk of thrombus will increase the longer patient is off anticoagulation. Patient was previously treated with Eliquis which was transitioned to Coumadin due to financial concerns. Patient anticipating transition to Eliquis at the time of discharge. 4. Newly diagnosed left lower thorax consolidation. CT thorax with contrast reviewed which showed soft tissue density at the proximal portion of the left inferior lobe bronchus with resultant atelectasis with differential diagnosis including mucous plugging or mass. Pulmonology consulted. 5. 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 Will defer further evaluation with PET/CT and/or bone scan to primary care provider on discharge. 6. Chronic essential hypertension. Blood pressure stable despite antihypertensive medications. [place] arrival. Likely related to blood loss anemia. If blood pressure increases, can resume home amlodipine. 7. Chronic hyperlipidemia. Continue statin therapy. 8. Chronic dizziness. Continue meclizine. 9. Chronic anxiety and depression. Continue venlafaxine. 10. DVT prophylaxis. Contraindicated due to gastrointestinal bleeding. Level of Care Indication Regular Floor DVT Prophylaxis Contraindicated Maintenance IVF Indication NA / No maintenance IVF Indwelling Urinary Catheter Indication NA No indwelling catheter Anticipated Timeline of Discharge 24 hours Anticipated DC Disposition Home without services Digitally Signed by KIMBERLY MYERS DO on 01/02/2024 04:18 PM [id number] Gastroenterology Consult note Date of Service 01/01/24 Reason for Consultation GI bleed Referring Physician Hospitalist History of Present Illness We have been asked to see Ms. Talbert a 78-year-old female with past medical history significant forpulmonary embolism on Coumadin, hypertension, hyperlipidemia and depression for GI bleed. She presented to [facility] ER with rectal bleeding that started 3 to 4 days ago. Did have some transient associated dizziness. She had bright red blood mixed with semiformed semiloose stool last blood was noted at some point of the day yesterday she is not sure. She does state that sometimes today shedid have a stool that did not have blood. She denies any associated weight loss, nausea, vomiting, abdominal pain, dysphagia, dyspepsia. She has never had endoscopic assessment in the past. I note that her INR was 6.1 she was given vitamin K and Kcentra and it was improved at 1.5, Coumadin is currently on hold. Apparently, she also had an unprovoked blood clot around a year or so ago. Labs and imaging reviewed hemoglobin 8.5, WBC count 13.4, platelet count 525 1+ bacteriuria with positive nitrates and trace leukocyte esterase noted total bilirubin 1.5, alk phos 174, AST 19, ALT 111 CPK unyielding BUN nonelevated. 12/31/2023 CT angio GI bleeding scan no gross intraluminal contrastextravasation of the stomach small bowel or colon to suggest active GI hemorrhage. At the cecum andproximal ascending colon there is diffuse wall thickening with heterogeneous enhancement possibly infectious versus inflammatory versus neoplastic process there are multiple mildly enlarged nodes at the right abdomen adjacent to the proximal colon. Lower thorax demonstrates moderate consolidation of the left lower lobe. At the anteromedial left hepatic lobe there is a small slightly extrahepatic vascular malformation possibly hemangioma. L4 vertebral body 1.4 cm sclerotic lesion. Review of Systems A 14 point review of systems was completed including: constitutional, HEENT, respiratory, cardiac, gastrointestinal, genitourinary, integumentary, musculoskeletal, neurological, hematology/immunology, endocrine and psych. Pertinent positives and negatives mentioned above and are otherwise negative. Physical Exam Vitals and Measurements T: 36.9 C (Oral) TMIN: 36.6 C (Oral) TMAX: 37.4 C (Axillary) HR: 104 RR: 16 BP: 124/78 SpO2: 95% HT: 160.0 cm WT: 85.3 kg BMI: 33.32 Weight Dosing Weight: 85.3 kg (12/31/23) Constitutional: Resting in bed, in no acute distress Head: Normocephalic, atraumatic EENT: Conjunctiva clear, sclera anicteric; Oral mucosa moist Neck: Supple, trachea is midline Cardiac: S1, S2, regular rate and rhythm, no appreciable murmurs Lungs: Clear to auscultation anteriorly respirations easy and unlabored Abdomen: Soft, non-tender, non-distended; bowel sounds active x 4 quadrants; no rebound, rigidity, guarding Musculoskeletal/extremities: No extremity edema noted Neurological: Alert and oriented to person, place, time, and situation. No focal neurological deficit observed Skin: No jaundice noted visible skin Psychiatric: Cooperative, appropriate mood & affect Lab Results 12/31 07:41 Hgb: 8.5 L Hct: 26.5 L 12/31 05:51 Hgb: 8.5 L Hct: 26.0 L 12/31 02:48 WBC: 13.4 H Hgb: 9.1 L Hct: 27.3 L Platelet: 525 H Neutrophil %: 71.1 Glucose Level: 119 H Sodium Level: 144 Potassium Level: 3.5 BUN: 11.0 Creatinine Lvl (s): 0.48 L Imaging Results and Diagnostics CT Angio GI Bleeding Scan Result Date: December 31, 2023 Verified By: TRELL LYN MD CLINICAL STATEMENT: IMPRESSION: 1. No gross intraluminal contrast extravasation of the stomach, small bowel,or colon, to suggest active gastrointestinal hemorrhage.2. At the cecum and proximal ascending colon, there is diffuse wallthickening with heterogeneous enhancement possibly inflammatory/infectiousprocess versus neoplastic process. Correlation clinical finding GI consultwould be useful. There are multiple mildly enlarged nodes at the rightabdomen, adjacent the proximal colon.3. Lower thorax demonstrates moderate consolidation of the left lower lobe.Correlation clinical findings and follow-up CT thorax may be useful.4. At the anteromedial left hepatic lobe, there is an small slightlyexophytic vascular malformation, possibly hemangioma, measuring approximately2 x 1.5 cm. Finding was not as well visualized on the prior study.5. At the L4 vertebral body, there is a nonspecific 1.4 cm sclerotic lesion,possibly bone island although metastasis cannot be excluded in patient withhistory of neoplastic disease.Nuclear medicine bone scan or PET-CT study may be useful for furtherevaluation, if clinically indicated. EKG EC12/31/23: SINUS RHYTHM Electronic Signature: ANATOLIY CERVANTES MD 01/01/2024 11:03:12 Assessment/Plan 1. GI bleed 2. Abnormal finding on GI tract imaging As per HPI presented with painless lower GI bleeding. Imaging showed no evidence of active GI hemorrhage but did note some colonic wall thickening and lymph node involvement as well as a area on the spine and hepatic lesion that was favored to be hemangioma/extrahepatic vascular malformation. No prior endoscopic assessment. Had supratherapeutic INR on Coumadin that was reversed with Kcentra and vitamin K. Most recent stool did not have blood. Discussed indication for colonoscopy with the patient at this time she is declining. She is aware potential differentials include malignancy. Others to consider are AVM versus diverticular versus inflammation from colitis or other. Will check CEA. Recom mend holding anticoagulation until hemoglobin is stable and 24 to 48 hours of no active GI bleeding. Okay for low bulk regular diet from GI standpoint. Closely monitor hemoglobin and hematocrit, resuscitate as needed. Little more to add at this time we will sign off call back if needed if patient is agreeable to endoscopic assessment. Orders: Carcinoembryonic Antigen(CEA), 01/01/24 11:32:00 EST, Routine, Blood, Once, Stop date 01/01/24 12:00:00 EST Diet Order, 01/01/24 11:32:00 EST, Start Meal: Next meal, Regular Diet, Low bulk, Constant Order, : N/A, : N/A Problem List/Past Medical History Ongoing KOLBY (acute kidney injury) Dehydration Hypertension Pulmonary emboli Procedure/Surgical History Tonsillectomy: 1965 Knee replacement Medications Inpatient acetaminophen, 650 mg= 2 tab(s), Oral, q6hr, PRN atorvastatin, 40 mg= 1 tab(s), Oral, qDay Dulcolax Laxative, 10 mg= 2 tab(s), Oral, qDay, PRN Maalox, 30 mL, Oral, q2h, PRN meclizine, 25 mg= 1 tab(s), Oral, qDay melatonin, 3 mg= 1 tab(s), Oral, qHS, PRN pantoprazole IV Push, 40 mg, IV Push, BIDAC Rocephin, 1 gram(s)= 10 mL, IV Push (INT), qDay Senokot S, 1 tab(s), Oral, BID, PRN Tylenol, 650 mg= 2 tab(s), Oral, q4h, PRN Tylenol, 650 mg= 1 supp, Rectal, q4h, PRN venlafaxine, 37.5 mg= 1 tab(s), Oral, qDay Zofran, 4 mg= 2 mL, IV Push, q4h, PRN Home amLODIPine 5 mg oral tablet aspirin 81 mg oral tablet, chewable, 81 mg= 1 tab(s), Chewed, qDay, Not taking atorvastatin 40 mg oral tablet, 40 mg= 1 tab(s), Oral, qDay atorvastatin 40 mg oral tablet betamethasone dipropionate 0.05% topical cream CeleBREX 200 mg oral capsule, 200 mg= 1 cap(s), Oral, qDay, Not taking losartan 50 mg oral tablet, 50 mg= 1 tab(s), Oral, qDay, Not taking meclizine 25 mg oral tablet, 25 mg= 1 tab(s), Oral, qDay meclizine 25 mg oral tablet venlafaxine 37.5 mg oral tablet, 37.5 mg= 1 tab(s), Oral, qDay Vitamin D3, 10 mcg= 1 tab(s), Oral, Daily, Not taking warfarin 2 mg oral tablet Allergies Benadryl predniSONE Social History Alcohol Use: Never., 06/03/2022 Home/Environment Domestic Concerns: None. Living situation: Home/Independent. Lives In: Multilevel home, 1st floor bedroom, 1st floor bathroom, 1st floor laundry., 06/03/2022 Nutrition/Health Type of diet: Regular. Appetite Good., 06/03/2022 Substance Abuse Use: Never., 06/03/2022 Tobacco Nicotine Use: Never (less than 100 in lifetime)., 06/03/2022 Family History Diabetes: Mother, Brother and Daughter. Heart disease: Father, Brother and Daughter. Health Status Family Member(s) Immunizations SARS-CoV-2 (COVID-19) mRNA-1273 vaccine: 0.25 unknown unit (07/03/21) SARS-CoV-2 (COVID-19) mRNA-1273 vaccine: 0.25 unknown unit (12/15/20) SARS-CoV-2 (COVID-19) mRNA-1273 vaccine: 0.5 unknown unit (05/03/20) SARS-CoV-2 (COVID-19) mRNA-1273 vaccine: 0.5 unknown unit (04/06/20) Digitally Signed by SERGEY BAI on 01/01/2024 11:38 AM [id number] Note ORIGINAL EXAMINATION: CT OF THE CHEST WITH LWFSITAV32/7/2024 9:20 pm TECHNIQUE: CT of the chest was performed with the administration of intravenous contrast. Multiplanar reformatted images are provided for review. Automated exposure control, iterative reconstruction, and/or weight based adjustment of the mA/kV was utilized to reduce the radiation dose to as low as reasonably achievable. COMPARISON: CTA chest 06/03/2022. CTA abdomen pelvis 12/31/2023. HISTORY: ORDERING SYSTEM PROVIDED HISTORY: Reason for Exam: Abnormal CT, evaluate consolidation Abnormal CT, evaluate consolidation FINDINGS: Heart: The heart is normal in size. There is no pericardial effusion. Multivessel coronary artery atherosclerotic calcifications. Vasculature: Nonaneurysmal thoracic aorta with mild scattered atherosclerotic plaque. The main pulmonary artery is dilated measuring 3.0 cm in diameter. Lymph nodes and mediastinum: Left hilar adenopathy is present. A claims customer service representative left hilar lymph node measures 1.4 cm (series 2, image 36). No axillary, mediastinal, or right hilar lymphadenopathy by size criteria. Thyroid: 1.7 cm right thyroid lobe nodule. Lungs and Pleura: The trachea and right mainstem bronchus is patent. There is soft tissue density seen at the proximal portion of the left inferior lobe bronchus with resultant postobstructive atelectasis of most of the left lower lobe. There is some areas of lower lobe aeration medially. There is a left upper lobe pulmonary nodule measuring 3 mm (series 4, image 40), these findings require no further follow-up per Rosita criteria. Minimal right basilar atelectasis. No pleural effusion or pneumothorax. Upper Abdomen: Limited images of the upper abdomen demonstrate no acute abnormality. Right renal cyst. Please refer to CTA abdomen pelvis 12/31/2023. Bones: No acute osseous abnormality. Right greater than left glenohumeral joint degenerative changes. Mild degenerative changes are present in the spine. Superficial Soft Tissues: No acute soft tissue abnormality. IMPRESSION: Soft tissue density at the proximal portion of the left inferior lobe bronchus results in atelectasis of most of the left lower lobe. Findings are indeterminate and may represent mucous plugging versus bronchogenic neoplasm, consider bronchoscopy if clinically warranted. Left hilar adenopathy. Findings may be reactive versus neoplastic. Recommend attention on follow-up. Dilated main pulmonary artery, findings may be seen with pulmonary hypertension. 1.7 cm right thyroid lobe nodule. Recommend nonemergent thyroid ultrasound for further evaluation. I have personally reviewed the images of this examination and agree with the resident's findings and interpretation. Interpreted by: Brayden Davis Preliminary Report By: Nithin Ling Electronically signed By Brayden Davis Dictated Date: 01/01/2024 9:41:44 PM Prelim Date: 01/01/2024 10:04:59 PM Sign Date: 01/01/2024 10:13:06 PM Ordering Provider: [id number] Note Date of Service 01/01/2024 Chief Complaint Patient seen and examined for hematochezia in the setting of a supratherapeutic INR. Subjective Patient is a 78-year-old female with past medical history significant for unprovoked pulmonary embolism diagnosed in May 2022 for which she is on chronic anticoagulation with Coumadin, hypertension, hyperlipidemia, chronic dizziness, anxiety and depression. Patient was admitted to [facility] on 12/31/2023 after presenting with hematochezia for 3 to 4 days prior to arrival. Upon arrival to the [place] emergency department, vital signs showed heart rate of 114 with vital signs otherwise unremarkable. Laboratory data showed leukocyte count 11.9, hemoglobin of 8.6 which is down from 13.2 in May 2022, INR of 6.1 with laboratory data otherwise unremarkable. CT angiogram GI bleed protocol was performed in the emergency department which showed no extravasation of contrast to suggest active gastrointestinal bleed with incidental findings of cecum and proximal ascending colon thickeningwhich is possibly infectious/inflammatory versus neoplastic, left lower thorax consolidation for which CT thorax was recommended, left hepatic lobe exophytic vascular malformation which is possibly ahemangioma, L4 vertebral body 1.4 cm sclerotic lesion which is possibly a bone island although metastatic disease cannot be excluded for which nuclear bone scan or PET/CT may be considered. Suprathera peutic INR was reversed with Kcentra and vitamin K. Today, patient states following INR reversal that she has had no further bloody bowel movements. Personally discussed with patient gastroenterology for which colonoscopy was offered, patient ultimately declined. Patient was counseled that colon thickening and unknown gastrointestinal bleeding couldbe related to underlying malignancy, especially with CT results showing areas of concern for possible underlying malignancy. As patient is declining colonoscopy, will advance diet. CT thorax with contrast will be ordered. Discussed with patient that if hemoglobin remains stable with no further bleeding, anticoagulation could be resumed as early as 01/03/2024, or wait until she is seen by her primary care provider in outpatient setting. Patient will consider these 2 options. I discussedwith patient regarding abnormal findings on CT for which she will follow-up with her primary care provider who can evaluate with bone scan or PET/CT at that time. Gastroenterology did order CEA whichwas unremarkable. Gastroenterology has signed off. Possible discharge as early as tomorrow. Objective Vitals and Measurements T: 36.9 C (Oral) TMIN: 36.6 C (Oral) TMAX: 37.4 C (Axillary) HR: 104 RR: 16 BP: 124/78 SpO2: 95% HT: 160.0 cm WT: 85.3 kg BMI: 33.32 Intake and Output 7AM Yesterday to 7AM Today Intake and Output (Last 24 hours) Intake Red Blood Cells Amount Transfused 500.00 Oral Intake 250.00 Administration Information 955.00 Output Urine Voided 300.00 Stool Count 2.00 Urine Count 7.00 Emesis Count 0.00 Total Summary Total Intake 1705.00 Total Output 300.00 Fluid Balance 1405.00 Physical Exam Weight Dosing Weight: 85.3 kg (12/31/23) GENERAL: No acute distress. MOUTH: Moist membranes. NECK: Supple. CARDIOVASCULAR: S1 S2 heard, regular rate and rhythm, no murmurs. No JVD, no edema. RESPIRATORY: Diminished breath sounds in left lung base. ABDOMEN: Soft, nontender, nondistended, no rebound or guarding, bowel sounds present in all 4 quadrants. NEUROLOGIC: Awake, alert and oriented x3, no focal neurologic deficits. PSYCHIATRIC: Anxious to be discharged. Medications Medications (12) Active Scheduled: (4) atorvastatin 40 mg tablet 40 mg 1 tab(s), Oral, qDay meclizine 25 mg Tablet 25 mg 1 tab(s), Oral, qDay pantoprazole 40 mg VIAL 40 mg, IV Push, BIDAC venlafaxine 37.5 mg tablet 37.5 mg 1 tab(s), Oral, qDay Continuous: (0) PRN: (8) acetaminophen 325 mg Tablet 650 mg 2 tab(s), Oral, q6hr acetaminophen 325 mg Tablet 650 mg 2 tab(s), Oral, q4h acetaminophen 650 mg Suppository 650 mg 1 supp, Rectal, q4h Al hydrox/Mg hydrox/simethicone 200-200-20 mg/5 mL Susp UD 30 mL, Oral, q2h bisacodyl 5 mg EC tablet 10 mg 2 tab(s), Oral, qDay docusate-senna (Senokot S) 50 mg-8.6 mg Tablet 1 tab(s), Oral, BID melatonin 3 mg tablet 3 mg 1 tab(s), Oral, qHS ondansetron 2 mg/ 1 mL 2 mL INJ 4 mg 2 mL, IV Push, q4h Lab Results 12/31 14:21 Hgb: 9.2 L Hct: 27.8 L 12/31 07:41 Hgb: 8.5 L Hct: 26.5 L 12/31 05:51 Hgb: 8.5 L Hct: 26.0 L 12/31 02:48 WBC: 13.4 H Hgb: 9.1 L Hct: 27.3 L Platelet: 525 H Neutrophil %: 71.1 Glucose Level: 119 H Sodium Level: 144 Potassium Level: 3.5 BUN: 11.0 Creatinine Lvl (s): 0.48 L Imaging Results and Diagnostics CT Angio GI Bleeding Scan Result Date: December 31, 2023 Verified By: TRELL LYN MD CLINICAL STATEMENT: IMPRESSION: 1. No gross intraluminal contrast extravasation of the stomach, small bowel, or colon, to suggest active gastrointestinal hemorrhage. 2. At the cecum and proximal ascending colon, there is diffuse wall thickening with heterogeneous enhancement possibly inflammatory/infectious process versus neoplastic process. Correlation clinical finding GI consult would be useful. There are multiplemildly enlarged nodes at the right abdomen, adjacent the proximal colon. 3. Lower thorax demonstrates moderate consolidation of the left lower lobe. Correlation clinical findings and follow-up CT thorax may be useful. 4. At the anteromedial left hepatic lobe, there is an small slightly exophytic vascular malformation, possibly hemangioma, measuring approximately2 x 1.5 cm. Finding was not as wellvisualized on the prior study. 5. At the L4 vertebral body, there is a nonspecific 1.4 cm scleroticlesion,possibly bone island although metastasis cannot be excluded in patient with history of neoplastic disease.Nuclear medicine bone scan or PET-CT study may be useful for further evaluation, if clinically indicated. EKG EKG reviewed, sinus rhythm. Assessment/Plan 1. Acute blood loss anemia suspect to be related to lower gastrointestinal bleed which is either caused or at least worsened by supratherapeutic INR. Status post 1 unit PRBC transfusion on arrival. Will transfuse if hemoglobin is under 7.0. 2. Acute lower gastrointestinal bleeding. CTA GI bleed protocol did show no evidence of active bleeding, but did show a colon wall thickening. Gastroenterology was consulted who recommended colonoscopy. Patient has never underwent colonoscopy. However, patient declined colonoscopy even after discuss ion of possible underlying malignancy. Will continue to hold anticoagulation for now. Will advance diet. 3. History of unprovoked pulmonary embolism on chronic anticoagulation with Coumadin with an acute supratherapeutic INR. Anticoagulation remains on hold. Would recommend at least 48 hours of anticoagulation holiday. Discussed with patient regarding possible reintroduction of anticoagulation on 01/03/2024, or waiting until outpatient follow-up with primary care provider. Discussed with patient regarding unprovoked pulmonary embolism and CT findings concern for possible underlying malignant process for which risk of thrombus will increase the longer patient is off anticoagulation. Patient was previously treated with Eliquis which was transitioned to Coumadin due to financial concerns. Due to issues with supratherapeutic INR and bleeding, patient is considering transitioning back toEliquis, even if at full cost. 4. Newly diagnosed left lower thorax consolidation. CT thorax with contrast has been ordered. 5. 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 Will defer further evaluation with PET/CT and/or bone scan to primary care provider on discharge. 6. Chronic essential hypertension. Blood pressure stable despite antihypertensive medications. [place] arrival. Likely related to blood loss anemia. If blood pressure increases, can resume home amlodipine. 7. Chronic hyperlipidemia. Continue statin therapy. 8. Chronic dizziness. Continue meclizine. 9. Chronic anxiety and depression. Continue venlafaxine. 10. DVT prophylaxis. Contraindicated due to gastrointestinal bleeding. Time Spent 53 minutes spent on direct patient care including personal discussion with patient and gastroenterology regarding recommendations for colonoscopy which patient ultimately declined, discussed with patient regarding abnormal CT findings and recommendations for outpatient follow-up, medical decision making regarding acute blood loss anemia and suspected lower gastrointestinal bleed without colonoscopy for direct visualization and discharge planning. Level of Care Indication Regular Floor DVT Prophylaxis Contraindicated Maintenance IVF Indication NA / No maintenance IVF Indwelling Urinary Catheter Indication NA No indwelling catheter Anticipated Timeline of Discharge 24 hours Anticipated DC Disposition Home without services Digitally Signed by KIMBERLY MYERS DO on 01/01/2024 03:38 PM Digitally Signed by KIMBERLY MYERS DO on 01/01/2024 03:40 PM [id number] Gastro[facility] Consult note Date of Service 01/01/24 Reason for Consultation GI bleed Referring Physician Hospitalist History of Present Illness We have been asked to see Ms. Talbert a 78-year-old female with past medical history significant forpulmonary embolism on Coumadin, hypertension, hyperlipidemia and depression for GI bleed. She presented to [facility] ER with rectal bleeding that started 3 to 4 days ago. Did have some transient associated dizziness. She had bright red blood mixed with semiformed semiloose stool last blood was noted at some point of the day yesterday she is not sure. She does state that sometimes today shedid have a stool that did not have blood. She denies any associated weight loss, nausea, vomiting, abdominal pain, dysphagia, dyspepsia. She has never had endoscopic assessment in the past. I note that her INR was 6.1 she was given vitamin K and Kcentra and it was improved at 1.5, Coumadin is currently on hold. Apparently, she also had an unprovoked blood clot around a year or so ago. Labs and imaging reviewed hemoglobin 8.5, WBC count 13.4, platelet count 525 1+ bacteriuria with positive nitrates and trace leukocyte esterase noted total bilirubin 1.5, alk phos 174, AST 19, ALT 111 CPK unyielding BUN nonelevated. 12/31/2023 CT angio GI bleeding scan no gross intraluminal contrastextravasation of the stomach small bowel or colon to suggest active GI hemorrhage. At the cecum andproximal ascending colon there is diffuse wall thickening with heterogeneous enhancement possibly infectious versus inflammatory versus neoplastic process there are multiple mildly enlarged nodes at the right abdomen adjacent to the proximal colon. Lower thorax demonstrates moderate consolidation of the left lower lobe. At the anteromedial left hepatic lobe there is a small slightly extrahepatic vascular malformation possibly hemangioma. L4 vertebral body 1.4 cm sclerotic lesion. Review of Systems A 14 point review of systems was completed including: constitutional, HEENT, respiratory, cardiac, gastrointestinal, genitourinary, integumentary, musculoskeletal, neurological, hematology/immunology, endocrine and psych. Pertinent positives and negatives mentioned above and are otherwise negative. Physical Exam Vitals and Measurements T: 36.9 C (Oral) TMIN: 36.6 C (Oral) TMAX: 37.4 C (Axillary) HR: 104 RR: 16 BP: 124/78 SpO2: 95% HT: 160.0 cm WT: 85.3 kg BMI: 33.32 Weight Dosing Weight: 85.3 kg (12/31/23) Constitutional: Resting in bed, in no acute distress Head: Normocephalic, atraumatic EENT: Conjunctiva clear, sclera anicteric; Oral mucosa moist Neck: Supple, trachea is midline Cardiac: S1, S2, regular rate and rhythm, no appreciable murmurs Lungs: Clear to auscultation anteriorly respirations easy and unlabored Abdomen: Soft, non-tender, non-distended; bowel sounds active x 4 quadrants; no rebound, rigidity, guarding Musculoskeletal/extremities: No extremity edema noted Neurological: Alert and oriented to person, place, time, and situation. No focal neurological deficit observed Skin: No jaundice noted visible skin Psychiatric: Cooperative, appropriate mood & affect Lab Results 12/31 07:41 Hgb: 8.5 L Hct: 26.5 L 12/31 05:51 Hgb: 8.5 L Hct: 26.0 L 12/31 02:48 WBC: 13.4 H Hgb: 9.1 L Hct: 27.3 L Platelet: 525 H Neutrophil %: 71.1 Glucose Level: 119 H Sodium Level: 144 Potassium Level: 3.5 BUN: 11.0 Creatinine Lvl (s): 0.48 L Imaging Results and Diagnostics CT Angio GI Bleeding Scan Result Date: December 31, 2023 Verified By: TRELL LYN MD CLINICAL STATEMENT: IMPRESSION: 1. No gross intraluminal contrast extravasation of the stomach, small bowel,or colon, to suggest active gastrointestinal hemorrhage.2. At the cecum and proximal ascending colon, there is diffuse wallthickening with heterogeneous enhancement possibly inflammatory/infectiousprocess versus neoplastic process. Correlation clinical finding GI consultwould be useful. There are multiple mildly enlarged nodes at the rightabdomen, adjacent the proximal colon.3. Lower thorax demonstrates moderate consolidation of the left lower lobe.Correlation clinical findings and follow-up CT thorax may be useful.4. At the anteromedial left hepatic lobe, there is an small slightlyexophytic vascular malformation, possibly hemangioma, measuring approximately2 x 1.5 cm. Finding was not as well visualized on the prior study.5. At the L4 vertebral body, there is a nonspecific 1.4 cm sclerotic lesion,possibly bone island although metastasis cannot be excluded in patient withhistory of neoplastic disease.Nuclear medicine bone scan or PET-CT study may be useful for furtherevaluation, if clinically indicated. EKG EC12/31/23: SINUS RHYTHM Electronic Signature: ANATOLIY CERVANTES MD 01/01/2024 11:03:12 Assessment/Plan 1. GI bleed 2. Abnormal finding on GI tract imaging As per HPI presented with painless lower GI bleeding. Imaging showed no evidence of active GI hemorrhage but did note some colonic wall thickening and lymph node involvement as well as a area on the spine and hepatic lesion that was favored to be hemangioma/extrahepatic vascular malformation. No prior endoscopic assessment. Had supratherapeutic INR on Coumadin that was reversed with Kcentra and vitamin K. Most recent stool did not have blood. Discussed indication for colonoscopy with the patient at this time she is declining. She is aware potential differentials include malignancy. Others to consider are AVM versus diverticular versus inflammation from colitis or other. Will check CEA. Recom mend holding anticoagulation until hemoglobin is stable and 24 to 48 hours of no active GI bleeding. Okay for low bulk regular diet from GI standpoint. Closely monitor hemoglobin and hematocrit, resuscitate as needed. Little more to add at this time we will sign off call back if needed if patient is agreeable to endoscopic assessment. Orders: Carcinoembryonic Antigen(CEA), 01/01/24 11:32:00 EST, Routine, Blood, Once, Stop date 01/01/24 12:00:00 EST Diet Order, 01/01/24 11:32:00 EST, Start Meal: Next meal, Regular Diet, Low bulk, Constant Order, : N/A, : N/A Problem List/Past Medical History Ongoing KOLBY (acute kidney injury) Dehydration Hypertension Pulmonary emboli Procedure/Surgical History Tonsillectomy: 1966 Knee replacement Medications Inpatient acetaminophen, 650 mg= 2 tab(s), Oral, q6hr, PRN atorvastatin, 40 mg= 1 tab(s), Oral, qDay Dulcolax Laxative, 10 mg= 2 tab(s), Oral, qDay, PRN Maalox, 30 mL, Oral, q2h, PRN meclizine, 25 mg= 1 tab(s), Oral, qDay melatonin, 3 mg= 1 tab(s), Oral, qHS, PRN pantoprazole IV Push, 40 mg, IV Push, BIDAC Rocephin, 1 gram(s)= 10 mL, IV Push (INT), qDay Senokot S, 1 tab(s), Oral, BID, PRN Tylenol, 650 mg= 2 tab(s), Oral, q4h, PRN Tylenol, 650 mg= 1 supp, Rectal, q4h, PRN venlafaxine, 37.5 mg= 1 tab(s), Oral, qDay Zofran, 4 mg= 2 mL, IV Push, q4h, PRN Home amLODIPine 5 mg oral tablet aspirin 81 mg oral tablet, chewable, 81 mg= 1 tab(s), Chewed, qDay, Not taking atorvastatin 40 mg oral tablet, 40 mg= 1 tab(s), Oral, qDay atorvastatin 40 mg oral tablet betamethasone dipropionate 0.05% topical cream CeleBREX 200 mg oral capsule, 200 mg= 1 cap(s), Oral, qDay, Not taking losartan 50 mg oral tablet, 50 mg= 1 tab(s), Oral, qDay, Not taking meclizine 25 mg oral tablet, 25 mg= 1 tab(s), Oral, qDay meclizine 25 mg oral tablet venlafaxine 37.5 mg oral tablet, 37.5 mg= 1 tab(s), Oral, qDay Vitamin D3, 10 mcg= 1 tab(s), Oral, Daily, Not taking warfarin 2 mg oral tablet Allergies Benadryl predniSONE Social History Alcohol Use: Never., 06/03/2022 Home/Environment Domestic Concerns: None. Living situation: Home/Independent. Lives In: Multilevel home, 1st floor bedroom, 1st floor bathroom, 1st floor laundry., 06/03/2022 Nutrition/Health Type of diet: Regular. Appetite Good., 06/03/2022 Substance Abuse Use: Never., 06/03/2022 Tobacco Nicotine Use: Never (less than 100 in lifetime)., 06/03/2022 Family History Diabetes: Mother, Brother and Daughter. Heart disease: Father, Brother and Daughter. Health Status Family Member(s) Immunizations SARS-CoV-2 (COVID-19) mRNA-1273 vaccine: 0.25 unknown unit (07/03/21) SARS-CoV-2 (COVID-19) mRNA-1273 vaccine: 0.25 unknown unit (12/15/20) SARS-CoV-2 (COVID-19) mRNA-1273 vaccine: 0.5 unknown unit (05/03/20) SARS-CoV-2 (COVID-19) mRNA-1273 vaccine: 0.5 unknown unit (04/06/20) Digitally Signed by SERGEY BAI on 01/01/2024 11:38 AM [id number] NoteSINUS RHYTHM Electronic Signature: ANATOLIY CERVANTES MD 01/01/2024 11:03:12[facility] History and physical note Date of Service December 31, 2023 Chief Complaint Lower GI bleed History of Present Illness A 78 years old female with past medical history significant for pulmonary embolism on Coumadin at home, hypertension, hyperlipidemia, depression presented to [facility] ER with a chief concern of rectal bleeding going on for the past 3 to 4 days. Patient was accepted by my colleague overnight, history obtained from colleague report, review of medical records as well as by talking to the patient. bright red blood per rectum going on for the past 3 to 4 days with total of 3-4 episodes, last episode was just prior to arrival at [facility]. She felt a little weak this morning after anepisode of bleeding. ED course: Vital signs, labs, imaging report and EKG personally reviewed Was initially tachycardic on arrival. Normotensive CBC showed white count of 11,900, hemoglobin of 8.6 with hemoglobin of 13.2 in May 2022. Hemoglobin eventually dropped to 7.5. PT of 71.5, INR of 6.1, APTT of 71.5. CMP showed blood sugar of 258, alkaline phos 373. Troponin negative CT angio GI bleed scan ordered which is pending EKG on admission showed sinus tachycardia with QTc of 433 ms. Patient received IV fluids, 1500 units Kcentra and vitamin K 10 mg IV piggyback once at [place] [facility]. Review of Systems Review of systems are negative except mentioned in HPI Physical Exam Vitals and Measurements T: 36.6 C (Oral) HR: 106 (Monitored) RR: 18 BP: 117/96 SpO2: 94% HT: 160.0 cm WT: 85.3 kg BMI: 33.32 Weight Dosing Weight: 85.3 kg (12/31/23) General Appearance: Appears to be stable and in no acute distress Head: Atraumatic and normocephalic EENT: EOMI, PERRLA, no oropharyngeal erythema, no tonsillar exudates, no conjunctival injection. sclera anicteric. Neck: No thyromegaly, no cervical lymphadenopathy, trachea midline Cardiac: S1 and S2 normal. RRR. No murmurs, rubs, or gallops. No JVD. No hepatojugular reflex. Lungs: Good air entry bilaterally. No increased work for breathing. No wheezes, rhonchi, or rales. Abdomen: Soft, nontender, nondistended. Normoactive bowel sounds. No rebound or guarding. Negative Tobar's sign. No hepatosplenomegaly. Musculoskeletal: Full range of motion upper and lower extremities. No CVA tenderness. Extremities: No lower extremity pitting edema. 2+ radial and pedal pulses bilaterally. Neurological: No gross motor deficits Skin: Large seborrheic keratosis of the skin of left lower quadrant of abdomen Psychiatric: Alert and oriented, well groomed, euthymic. cooperative Lab Results WBC: 11.9 10^3/mcL High (12/31/23 05:01:00) RBC: 3.34 10^6/mcL Low (12/31/23 05:01:00) Hgb: 7.5 G/dL Low (12/31/23 16:01:00) Hct: 26.7 % Low (12/31/23 05:01:00) MCV: 79.8 fL Low (12/31/23 05:01:00) MCH: 25.8 pg Low (12/31/23 05:01:00) MCHC: 32.3 G/dL (12/31/23 05:01:00) RDW: 15.4 % (12/31/23 05:01:00) Platelet: 570 10^3/mcL High (12/31/23 05:01:00) MPV: 6.7 fL (12/31/23 05:01:00) Monocyte Distribution Width: 18.46 (12/31/23 05:01:00) Neutrophil %: 72.3 % (12/31/23 05:01:00) Lymphocyte %: 18.9 % Low (12/31/23 05:01:00) Monocyte %: 6.4 % (12/31/23 05:01:00) Eosinophil %: 2.1 % (12/31/23 05:01:00) Basophil %: 0.3 % (12/31/23 05:01:00) Neutrophil, Absolute: 8.6 10^3/mcL High (12/31/23 05:01:00) Lymphocyte, Absolute: 2.2 10^3/mcL (12/31/23 05:01:00) Monocyte, Absolute: 0.8 10^3/mcL (12/31/23 05:01:00) Eosinophil, Absolute: 0.2 10^3/mcL (12/31/23 05:01:00) Basophil, Absolute: 0 10^3/mcL (12/31/23 05:01:00) APTT: 71.5 seconds High (12/31/23 05:01:00) Protime: 17.5 seconds High (12/31/23 07:08:00) PT International Ratio: 1.5 (12/31/23 07:08:00) Glucose Level: 258 mg/dL High (12/31/23 05:01:00) Sodium Level: 140 mmol/L (12/31/23 05:01:00) Potassium Level: 3.6 mmol/L (12/31/23 05:01:00) Chloride: 104 mmol/L (12/31/23 05:01:00) CO2: 28 mmol/L (12/31/23 05:01:00) Electrolyte Balance: 8 mEq/L (12/31/23 05:01:00) BUN: 15 mg/dL (12/31/23 05:01:00) Creatinine Lvl (s): 0.72 mg/dL (12/31/23 05:01:00) BUN/Creatinine Ratio: 21 ratio (12/31/23 05:01:00) Calcium Lvl: 8.2 mg/dL Low (12/31/23 05:01:00) Total Protein: 6 G/dL Low (12/31/23 05:01:00) Albumin Level: 2.1 G/dL Low (12/31/23 05:01:00) Globulin: 3.9 G/dL (12/31/23 05:01:00) A/G Ratio: 0.5 ratio Low (12/31/23 05:01:00) Bili Total: 0.4 mg/dL (12/31/23 05:01:00) Alk Phos: 173 U/L High (12/31/23 05:01:00) AST/SGOT: 20 U/L (12/31/23 05:01:00) ALT/SGPT: 17 U/L (12/31/23 05:01:00) GFR Non-: 78 ml/min/1.73sqm (12/31/23 05:01:00) GFR : 95 ml/min/1.73sqm (12/31/23 05:01:00) High Sensitivity Troponin I: <4 (12/31/23 05:01:00) ABO/Rh Interp: A POS (12/31/23 05:01:00) ABSC Interp (Gel): Negative ABSC (12/31/23 05:01:00) Imaging Results and Diagnostics CT angio GI bleed scan pending EKG EKG as above Assessment/Plan Patient is admitted to stepdown monitored bed for lower GI bleed, elevated INR. Case was discussed by my colleague with ED physician Assessment: Acute blood loss anemia Lower GI bleed Supratherapeutic INR History of PE on Coumadin Hypertension Hyperlipidemia Depression Plan: -Hemoglobin of 8.6 on admission that declined to 7.5 with baseline around 13.2. Due to rapid drop in hemoglobin we will type and cross 2 units of packed RBC and administer 1 unit of packed RBC right now, H&H every 6 hours. Likely secondary to lower GI bleed. Further transfusion as needed to keep hemoglobin more than 7 -Presented with bright red blood per rectum going on for the past 3 to 4 days, total of 3-4 episodes with last episode just prior to arrival at [facility]. Clear liquid diet for now, n.p.o. after midnight CT angio GI bleed scan ordered which is pending If CT angio GI bleed scan showed evidence of active bleeding then we will contact interventional radiology for embolization IV PPI twice daily GI consulted -INR supratherapeutic at 6.1 on admission, received Kcentra and vitamin K IV at [facility], repeatINR of 1.5. -Continue to hold Coumadin for PE due to lower GI bleed -Withhold patient's antihypertensives in the setting of GI bleed and patient being normotensive -Continue statin for hyperlipidemia -Continue venlafaxine for depression DVT prophylaxis: SCDs Note was written using [employer] paid search manager software. Some of the meaning of the words and sentences might have changed during paid search manager, if there was ever some confusion about the meaning of some sentences, please do not hesitate to contact me. Problem List/Past Medical History Ongoing KOLBY (acute kidney injury) Dehydration Hypertension Pulmonary emboli Procedure/Surgical History Tonsillectomy: 1966 Knee replacement Medications Home Medications (12) Active amLODIPine 5 mg oral tablet aspirin 81 mg oral tablet, chewable 81 mg = 1 tab(s), Chewed, qDay atorvastatin 40 mg oral tablet 40 mg = 1 tab(s), Oral, qDay atorvastatin 40 mg oral tablet betamethasone dipropionate 0.05% topical cream CeleBREX 200 mg oral capsule 200 mg = 1 cap(s), Oral, qDay losartan 50 mg oral tablet 50 mg = 1 tab(s), Oral, qDay meclizine 25 mg oral tablet 25 mg = 1 tab(s), Oral, qDay meclizine 25 mg oral tablet venlafaxine 37.5 mg oral tablet 37.5 mg = 1 tab(s), Oral, qDay Vitamin D3 10 mcg = 1 tab(s), Oral, Daily warfarin 2 mg oral tablet Allergies Benadryl predniSONE Social History Alcohol Use: Never., 06/03/2022 Home/Environment Domestic Concerns: None. Living situation: Home/Independent. Lives In: Multilevel home, 1st floor bedroom, 1st floor bathroom, 1st floor laundry., 06/03/2022 Nutrition/Health Type of diet: Regular. Appetite Good., 06/03/2022 Substance Abuse Use: Never., 06/03/2022 Tobacco Nicotine Use: Never (less than 100 in lifetime)., 06/03/2022 Family History Diabetes: Mother, Brother and Daughter. Heart disease: Father, Brother and Daughter. Health Status Family Member(s) Immunizations SARS-CoV-2 (COVID-19) mRNA-1273 vaccine: 0.25 unknown unit (07/03/21) SARS-CoV-2 (COVID-19) mRNA-1273 vaccine: 0.25 unknown unit (12/15/20) SARS-CoV-2 (COVID-19) mRNA-1273 vaccine: 0.5 unknown unit (05/03/20) SARS-CoV-2 (COVID-19) mRNA-1273 vaccine: 0.5 unknown unit (04/06/20) Code Status Code Status - Ordered -- 12/31/23 18:04:00 EST, Full Code, Constant Order Digitally Signed by AMY WEST MD on 12/31/2023 06:16 PM [address]06-2024 Note ORIGINAL EXAMINATION: CTA OF THE ABDOMEN AND PELVIS WITH CONTRAST 12/31/2023 8:27 pm: TECHNIQUE: CTA of the abdomen and pelvis was performed with the administration of intravenous contrast. Multiplanar reformatted images are provided for review. MIP images are provided for review. Automated exposure control, iterative reconstruction, and/or weight based adjustment of the mA/kV was utilized to reduce the radiation dose to as low as reasonably achievable. 3D surface rendering or volume rendering reconstructions were performed. COMPARISON: CTA chest 06/03/2022 HISTORY: ORDERING SYSTEM PROVIDED HISTORY: Reason for Exam: BLOOD IN STOOL, ANEMIA Lower GI bleed FINDINGS: Lower thorax demonstrates moderate consolidation of the left lower lobe. Correlation clinical findings and follow-up CT thorax may be useful. The liver demonstrates no biliary duct dilatation or gross mass. At the anteromedial left hepatic lobe, there is an small slightly exophytic vascular malformation, possibly hemangioma, measuring approximately 2 x 1.5 cm.. Finding was not as well visualized on the prior study. The gallbladder demonstrates no calcified gallstones or gross wall thickening. The pancreas demonstrates no evidence of mass, ductal dilatation, or inflammatory process. There are few pancreatic minimal calcifications, possibly sequela of remote inflammatory or granulomatous process. Spleen is normal in size. Adrenal glands are normal in size. The kidneys demonstrate no hydronephrosis or renal calculi. There are small bilateral renal cortical hypodense CIS. Ureters are normal in caliber bilaterally. Aorta is normal in caliber without acute abnormality. There are a few calcified plaques of the aorta. The proximal celiac axis is patent. Superior mesenteric artery and proximal branches are patent. Bilateral renal arteries are patent Inferior mesenteric artery is patent. Bilateral iliac arterial systems are patent. Stomach and duodenal sweep demonstrate no acute abnormality. Small bowel and colon are normal in caliber. There is no gross intraluminal contrast extravasation of the stomach, small bowel, or colon, to suggest active gastrointestinal hemorrhage. At the cecum and proximal ascending colon, there is diffuse wall thickening with heterogeneous enhancement possibly inflammatory/infectious process versus neoplastic process. Correlation clinical finding GI consult would be useful. There are multiple mildly enlarged nodes at the right abdomen, adjacent the proximal colon. The appendix is not discretely visualized. There is no gross pericecal mass or inflammatory process. Urinary bladder is within normal limits. Uterus demonstrates small exophytic nodules compatible with fibroids, and calcifications. Bilateral ovaries are grossly normal size. There is no pelvic free fluid. Osseous structures are intact with degenerative changes. At the L4 vertebral body, there is a nonspecific 1.4 cm sclerotic lesion, possibly bone island although metastasis cannot be excluded in patient with history of neoplastic disease. IMPRESSION: 1. No gross intraluminal contrast extravasation of the stomach, small bowel, or colon, to suggest active gastrointestinal hemorrhage. 2. At the cecum and proximal ascending colon, there is diffuse wall thickening with heterogeneous enhancement possibly inflammatory/infectious process versus neoplastic process. Correlation clinical finding GI consult would be useful. There are multiple mildly enlarged nodes at the right abdomen, adjacent the proximal colon. 3. Lower thorax demonstrates moderate consolidation of the left lower lobe. Correlation clinical findings and follow-up CT thorax may be useful. 4. At the anteromedial left hepatic lobe, there is an small slightly exophytic vascular malformation, possibly hemangioma, measuring approximately 2 x 1.5 cm. Finding was not as well visualized on the prior study. 5. At the L4 vertebral body, there is a nonspecific 1.4 cm sclerotic lesion, possibly bone island although metastasis cannot be excluded in patient with history of neoplastic disease. Nuclear medicine bone scan or PET-CT study may be useful for further evaluation, if clinically indicated. Interpreted by: Trell Lyn Preliminary Report By: Trell Lyn Electronically signed By Trell Lyn Dictated Date: 12/31/2023 8:30:08 PM Prelim Date: 12/31/2023 8:52:17 PM Sign Date: 12/31/2023 8:52:17 PM Ordering Provider: [facility]11-06-2024 History and physical note Date of Service December 31, 2023 Chief Complaint Lower GI bleed History of Present Illness A 78 years old female with past medical history significant for pulmonary embolism on Coumadin at home, hypertension, hyperlipidemia, depression presented to [facility] ER with a chief concern of rectal bleeding going on for the past 3 to 4 days. Patient was accepted by my colleague overnight, history obtained from colleague report, review of medical records as well as by talking to the patient. bright red blood per rectum going on for the past 3 to 4 days with total of 3-4 episodes, last episode was just prior to arrival at [facility]. She felt a little weak this morning after anepisode of bleeding. ED course: Vital signs, labs, imaging report and EKG personally reviewed Was initially tachycardic on arrival. Normotensive CBC showed white count of 11,900, hemoglobin of 8.6 with hemoglobin of 13.2 in May 2022. Hemoglobin eventually dropped to 7.5. PT of 71.5, INR of 6.1, APTT of 71.5. CMP showed blood sugar of 258, alkaline phos 373. Troponin negative CT angio GI bleed scan ordered which is pending EKG on admission showed sinus tachycardia with QTc of 433 ms. Patient received IV fluids, 1500 units Kcentra and vitamin K 10 mg IV piggyback once at [facility]. Review of Systems Review of systems are negative except mentioned in HPI Physical Exam Vitals and Measurements T: 36.6 C (Oral) HR: 106 (Monitored) RR: 18 BP: 117/96 SpO2: 94% HT: 160.0 cm WT: 85.3 kg BMI: 33.32 Weight Dosing Weight: 85.3 kg (12/31/23) General Appearance: Appears to be stable and in no acute distress Head: Atraumatic and normocephalic EENT: EOMI, PERRLA, no oropharyngeal erythema, no tonsillar exudates, no conjunctival injection. sclera anicteric. Neck: No thyromegaly, no cervical lymphadenopathy, trachea midline Cardiac: S1 and S2 normal. RRR. No murmurs, rubs, or gallops. No JVD. No hepatojugular reflex. Lungs: Good air entry bilaterally. No increased work for breathing. No wheezes, rhonchi, or rales. Abdomen: Soft, nontender, nondistended. Normoactive bowel sounds. No rebound or guarding. Negative Tobar's sign. No hepatosplenomegaly. Musculoskeletal: Full range of motion upper and lower extremities. No CVA tenderness. Extremities: No lower extremity pitting edema. 2+ radial and pedal pulses bilaterally. Neurological: No gross motor deficits Skin: Large seborrheic keratosis of the skin of left lower quadrant of abdomen Psychiatric: Alert and oriented, well groomed, euthymic. cooperative Lab Results WBC: 11.9 10^3/mcL High (12/31/23 05:01:00) RBC: 3.34 10^6/mcL Low (12/31/23 05:01:00) Hgb: 7.5 G/dL Low (12/31/23 16:01:00) Hct: 26.7 % Low (12/31/23 05:01:00) MCV: 79.8 fL Low (12/31/23 05:01:00) MCH: 25.8 pg Low (12/31/23 05:01:00) MCHC: 32.3 G/dL (12/31/23 05:01:00) RDW: 15.4 % (12/31/23 05:01:00) Platelet: 570 10^3/mcL High (12/31/23 05:01:00) MPV: 6.7 fL (12/31/23 05:01:00) Monocyte Distribution Width: 18.46 (12/31/23 05:01:00) Neutrophil %: 72.3 % (12/31/23 05:01:00) Lymphocyte %: 18.9 % Low (12/31/23 05:01:00) Monocyte %: 6.4 % (12/31/23 05:01:00) Eosinophil %: 2.1 % (12/31/23 05:01:00) Basophil %: 0.3 % (12/31/23 05:01:00) Neutrophil, Absolute: 8.6 10^3/mcL High (12/31/23 05:01:00) Lymphocyte, Absolute: 2.2 10^3/mcL (12/31/23 05:01:00) Monocyte, Absolute: 0.8 10^3/mcL (12/31/23 05:01:00) Eosinophil, Absolute: 0.2 10^3/mcL (12/31/23 05:01:00) Basophil, Absolute: 0 10^3/mcL (12/31/23 05:01:00) APTT: 71.5 seconds High (12/31/23 05:01:00) Protime: 17.5 seconds High (12/31/23 07:08:00) PT International Ratio: 1.5 (12/31/23 07:08:00) Glucose Level: 258 mg/dL High (12/31/23 05:01:00) Sodium Level: 140 mmol/L (12/31/23 05:01:00) Potassium Level: 3.6 mmol/L (12/31/23 05:01:00) Chloride: 104 mmol/L (12/31/23 05:01:00) CO2: 28 mmol/L (12/31/23 05:01:00) Electrolyte Balance: 8 mEq/L (12/31/23 05:01:00) BUN: 15 mg/dL (12/31/23 05:01:00) Creatinine Lvl (s): 0.72 mg/dL (12/31/23 05:01:00) BUN/Creatinine Ratio: 21 ratio (12/31/23 05:01:00) Calcium Lvl: 8.2 mg/dL Low (12/31/23 05::00) Total Protein: 6 G/dL Low (12/31/23 05::00) Albumin Level: 2.1 G/dL Low (12/31/23 05::00) Globulin: 3.9 G/dL (12/31/23 05::00) A/G Ratio: 0.5 ratio Low (12/31/23 05::00) Bili Total: 0.4 mg/dL (12/31/23 05:01:00) Alk Phos: 173 U/L High (12/31/23 05:01:00) AST/SGOT: 20 U/L (12/31/23 05:01:00) ALT/SGPT: 17 U/L (12/31/23 05:01:00) GFR Non-: 78 ml/min/1.73sqm (12/31/23 05:01:00) GFR : 95 ml/min/1.73sqm (12/31/23 05:01:00) High Sensitivity Troponin I: <4 (12/31/23 05:01:00) ABO/Rh Interp: A POS (12/31/23 05:01:00) ABSC Interp (Gel): Negative ABSC (12/31/23 05:01:00) Imaging Results and Diagnostics CT angio GI bleed scan pending EKG EKG as above Assessment/Plan Patient is admitted to stepdown monitored bed for lower GI bleed, elevated INR. Case was discussed by my colleague with ED physician Assessment: Acute blood loss anemia Lower GI bleed Supratherapeutic INR History of PE on Coumadin Hypertension Hyperlipidemia Depression Plan: -Hemoglobin of 8.6 on admission that declined to 7.5 with baseline around 13.2. Due to rapid drop in hemoglobin we will type and cross 2 units of packed RBC and administer 1 unit of packed RBC right now, H&H every 6 hours. Likely secondary to lower GI bleed. Further transfusion as needed to keep hemoglobin more than 7 -Presented with bright red blood per rectum going on for the past 3 to 4 days, total of 3-4 episodes with last episode just prior to arrival at [facility]. Clear liquid diet for now, n.p.o. after midnight CT angio GI bleed scan ordered which is pending If CT angio GI bleed scan showed evidence of active bleeding then we will contact interventional radiology for embolization IV PPI twice daily GI consulted -INR supratherapeutic at 6.1 on admission, received Kcentra and vitamin K IV at [facility], repeatINR of 1.5. -Continue to hold Coumadin for PE due to lower GI bleed -Withhold patient's antihypertensives in the setting of GI bleed and patient being normotensive -Continue statin for hyperlipidemia -Continue venlafaxine for depression DVT prophylaxis: SCDs Note was written using [employer] paid search manager software. Some of the meaning of the words and sentences might have changed during paid search manager, if there was ever some confusion about the meaning of some sentences, please do not hesitate to contact me. Problem List/Past Medical History Ongoing KOLBY (acute kidney injury) Dehydration Hypertension Pulmonary emboli Procedure/Surgical History Tonsillectomy: 1966 Knee replacement Medications Home Medications (12) Active amLODIPine 5 mg oral tablet aspirin 81 mg oral tablet, chewable 81 mg = 1 tab(s), Chewed, qDay atorvastatin 40 mg oral tablet 40 mg = 1 tab(s), Oral, qDay atorvastatin 40 mg oral tablet betamethasone dipropionate 0.05% topical cream CeleBREX 200 mg oral capsule 200 mg = 1 cap(s), Oral, qDay losartan 50 mg oral tablet 50 mg = 1 tab(s), Oral, qDay meclizine 25 mg oral tablet 25 mg = 1 tab(s), Oral, qDay meclizine 25 mg oral tablet venlafaxine 37.5 mg oral tablet 37.5 mg = 1 tab(s), Oral, qDay Vitamin D3 10 mcg = 1 tab(s), Oral, Daily warfarin 2 mg oral tablet Allergies Benadryl predniSONE Social History Alcohol Use: Never., 06/03/2022 Home/Environment Domestic Concerns: None. Living situation: Home/Independent. Lives In: Multilevel home, 1st floor bedroom, 1st floor bathroom, 1st floor laundry., 06/03/2022 Nutrition/Health Type of diet: Regular. Appetite Good., 06/03/2022 Substance Abuse Use: Never., 06/03/2022 Tobacco Nicotine Use: Never (less than 100 in lifetime)., 06/03/2022 Family History Diabetes: Mother, Brother and Daughter. Heart disease: Father, Brother and Daughter. Health Status Family Member(s) Immunizations SARS-CoV-2 (COVID-19) mRNA-1273 vaccine: 0.25 unknown unit (07/03/21) SARS-CoV-2 (COVID-19) mRNA-1273 vaccine: 0.25 unknown unit (12/15/20) SARS-CoV-2 (COVID-19) mRNA-1273 vaccine: 0.5 unknown unit (05/03/20) SARS-CoV-2 (COVID-19) mRNA-1273 vaccine: 0.5 unknown unit (04/06/20) Code Status Code Status - Ordered -- 12/31/23 18:04:00 EST, Full Code, Constant Order Digitally Signed by AMY WEST MD on 12/31/2023 06:16 PM [id number] Evaluation + Plan noteExtracted from: Title:History and Physical Author:AMY WEST MD Date:12/31/23 Patient is admitted to [facility] monitored bed for lower GI bleed, elevated INR. Case was discussed by my colleague with ED physician Assessment: Acute blood loss anemia Lower GI bleed Supratherapeutic INR History of PE on Coumadin Hypertension Hyperlipidemia Depression Plan: -Hemoglobin of 8.6 on admission that declined to 7.5 with baseline around 13.2. Due to rapid drop in hemoglobin we will type and cross 2 units of packed RBC and administer 1 unit of packed RBC right now, H&H every 6 hours. Likely secondary to lower GI bleed. Further transfusion as needed to keep hemoglobin more than 7 -Presented with bright red blood per rectum going on for the past 3 to 4 days, total of 3-4 episodes with last episode just prior to arrival at [facility]. Clear liquid diet for now, n.p.o. after midnight CT angio GI bleed scan ordered which is pending If CT angio GI bleed scan showed evidence of active bleeding then we will contact interventional radiology for embolization IV PPI twice daily GI consulted -INR supratherapeutic at 6.1 on admission, received Kcentra and vitamin K IV at [facility], repeat INR of 1.5. -Continue to hold Coumadin for PE due to lower GI bleed -Withhold patient's antihypertensives in the setting of GI bleed and patient being normotensive -Continue statin for hyperlipidemia -Continue venlafaxine for depression DVT prophylaxis: SCDs Note was written using [employer] paid search manager software. Some of the meaning of the words and sentences might have changed during paid search manager, if there was ever some confusion about the meaning of some sentences, please do not hesitate to contact me. Addendum by AMY WEST MD on December 31, 2023 21:22:[address] angio GI bleed scan did not show any active GI bleed, at the cecum and proximal ascending colon junction diffuse wall thickening with intraluminal enhancement possible inflammatory/infectious process versus neoplastic process. GI has been consulted. [facility] 11-06-2024 NoteSinus tachycardia Probable LVH with secondary repol abnrm Inferior infarct, old Electronic Signature: KYREE DAWSON MD 12/31/2023 05:13:36[facility] 03-19-2024 NoteHNO ID: [id number] Author: JANN TSAI RT(R) Service: Radiology Author Type: Technologist Type: Progress Notes Filed: 05/13/2023 15:08 Note Text: Radiology Service Progress Note PATIENT NAME: Scott Talbert DATE OF SERVICE: May 13, 2023 TIME: 2:58 PM PATIENT IDENTITY VERIFICATION COMPLETED USING TWO (2) IDENTIFIERS: Name and Date of confirmed by patient verbally. FALL SCREENING: Has the patient had 2 falls in the last year or 1 fall with injury or currently using an Ambulatory Assistive Device (Walker, Cane, Wheelchair, Crutches, etc.)? No PATIENT GENDER DATA: Female. status: : No status: NO. PATIENT RELEVANT IMPLANT DATA REVIEWED: Not Applicable PATIENT PRESENTS WITH AN IMPLANTABLE OR ATTACHED INTERNAL CORROSION SPECIALIST: No RADIOLOGY DEPARTMENT: General X-ray: Exam(s) Completed: Chest X-Ray PERIPHERAL IV DATA: Not applicable SIGNED BY: Jann Tsai RT(R) May 13, 2023 2:58 [facility]03-19-2024 NoteHNO ID: [id number] Author: HEATHER SHAH APRN.JOURNEYMAN MACHINIST Service: ? Author Type: Nurse Practitioner Type: Progress Notes Filed: 05/13/2023 15:23 Note Text: CC: Patient presents with: Cough: Cough x 6-8 weeks Patient was seen here in February for a cough that has not improved. Patient followed up with PCP as well who gave her some kind of inhaler, it was a sample but doesn't feel like it helped at all. Denies any pleuritic chest pain or sinus drainage. HPI: Scott Talbert is a 77 year old female who presents to the office with complaint of cough, nonproductive for months. Symptoms are staying the same. Associated symptoms includes cough. Denies sore throat, nasal congestion, post nasal drip, headache, and dyspnea. Treatments tried include Tesslon Perles, Inhaler (possibly Advair according to patient description of device) with minor relief of symptoms. Sick contacts: no. History of asthma, frequent episodes of bronchitis, chronic bronchitis, bronchiectasis or COPD: No Smoker: No Seasonal/environmental allergies: No The ROS is otherwise negative. The patient's pmh, medications, allergies, and past visits are reviewed. PHYSICAL EXAM: BP 128/80 Pulse 99 Temp 37.1 ?C (98.7 ?F) (Tympanic) Resp 18 Wt 97.1 kg (214 lb 1.1 oz) SpO2 96% General appearance: alert, cooperative, pleasant, in no acute distress Head: Normocephalic Eyes: PERRLA, EOM's intact, conjunctiva pink and moist, no icterus, sclera white, non-injected Ears: Right ear: External ear/canal- Normal, TM - clear with good landmarks. Left ear: External ear/canal- Normal, TM - clear with good landmarks Nose: clear. Oropharynx:moist without lesions, No erythema, exudates or tonsillar hypertrophy. Neck:supple and no adenopathy Heart: Negative. RRR without obvious murmur, gallop, or rubs. No ectopy. Lungs: wheezing diffusely History reviewed. No pertinent past medical history. No past surgical history on file. ALLERGIES Prednisone MEDICATIONS losartan (COZAAR) 50 mg tablet JANTOVEN 1 mg tablet warfarin (COUMADIN) 2 mg tablet Take 1 tablet by mouth every afternoon. venlafaxine (EFFEXOR) 75 mg tablet Take 75 mg by mouth three times a day. MECLIZINE HCL (ANTIVERT ORAL) Take by mouth. albuterol HFA (PROVENTIL HFA, VENTOLIN HFA) 90 mcg/actuation inhaler Inhale 2 Puffs as instructed every 4 hours as needed for Wheezing/Shortness of Breath. (Patient not taking: Reported on 03/17/2023) atorvastatin (LIPITOR) 20 mg ORAL tablet Take 20 mg by mouth once daily. CANDESARTAN CILEXETIL (ATACAND ORAL) Take by mouth. (Patient not taking: Reported on 03/17/2023) CELECOXIB (CELEBREX ORAL) Take by mouth. (Patient not taking: Reported on 03/17/2023) Aspirin 81 mg ORAL Tab Take 81 mg by mouth. (Patient not taking: Reported on 03/17/2023) No family history on file. Social History Tobacco Use Smoking status: Never DATA REVIEWED: Most recent imaging ASSESSMENT/PLAN: 1. Acute cough - ICD9: 786.2, ICD10: R05.1 - Encouraged patient to follow up with PCP to discuss cough being related to ARB medication - Encouraged follow up with ld teacher - XR CHEST 2V FRONTAL/LAT - negative - CONSULT TO PULM Potential red flag symptoms discussed with the patient. Reviewed appropriate action plan to take if red flag symptoms occur. Patient agreeable to treatment plan. Maria Esther Leiva Supervising provider was present and guided the care of the patient for the entire session on this date. All documentation was reviewed and agreed upon. Heather Shah APRN.[facility]03-19-2024 History of Present illness Narrative* Jann Tsai RT(R) - 05/13/2023 3:00 PM EDT Radiology Service Progress Note PATIENT NAME: Scott Talbert DATE OF SERVICE: May 13, 2023 TIME: 2:58 PM PATIENT IDENTITY VERIFICATION COMPLETED USING TWO (2) IDENTIFIERS: Name and Date of confirmedby patient verbally. FALL SCREENING: Has the patient had 2 falls in the last year or 1 fall with injury or currently using an Ambulatory Assistive Device (Walker, Cane, Wheelchair, Crutches, etc.)? No PATIENT GENDER DATA: Female. status: : No status: NO. PATIENT RELEVANT IMPLANT DATA REVIEWED: Not Applicable PATIENT PRESENTS WITH AN IMPLANTABLE OR ATTACHED INTERNAL CORROSION SPECIALIST: No RADIOLOGY DEPARTMENT: General X-ray: Exam(s) Completed: Chest X-Ray PERIPHERAL IV DATA: Not applicable SIGNED BY: RT Peng(R) May 13, 2023 2:58 PM [facility] History of Present illness Narrative* Heather Shah APRN.JOURNEYMAN MACHINIST - 05/13/2023 2:51 PM EDT CC: Patient presents with: Cough: Cough x 6-8 weeks Patient was seen here in February for a cough that has not improved. Patient followed up with PCP geena who gave her some kind of inhaler, it was a sample but doesn't feel like it helped at all. Denies any pleuritic chest pain or sinus drainage. HPI: Scott Talbert is a 77 year old female who presents to the office with complaint of cough, nonproductive for months. Symptoms are staying the same. Associated symptoms includes cough. Denies sore throat, nasal congestion, post nasal drip, headache, and dyspnea. Treatments tried include Tesslon Perles, Inhaler (possibly Advair according to patient description of device) with minor relief of symptoms. Sick contacts: no. History of asthma, frequent episodes of bronchitis, chronic bronchitis, bronchiectasis or COPD: No Smoker: No Seasonal/environmental allergies: No The ROS is otherwise negative. The patient's pmh, medications, allergies, and past visits are reviewed. PHYSICAL EXAM: BP 128/80 Pulse 99 Temp 37.1 C (98.7 F) (Tympanic) Resp 18 Wt 97.1 kg (214 lb 1.1 oz) SpO2 96% General appearance: alert, cooperative, pleasant, in no acute distress Head: Normocephalic Eyes: PERRLA, EOM's intact, conjunctiva pink and moist, no icterus, sclera white, non-injected Ears: Right ear: External ear/canal- Normal, TM - clear with good landmarks. Left ear: External ear/canal- Normal, TM - clear with good landmarks Nose: clear. Oropharynx:moist without lesions, No erythema, exudates or tonsillar hypertrophy. Neck:supple and no adenopathy Heart: Negative. RRR without obvious murmur, gallop, or rubs. No ectopy. Lungs: wheezing diffusely History reviewed. No pertinent past medical history. No past surgical history on file. ALLERGIES Prednisone MEDICATIONS losartan (COZAAR) 50 mg tablet JANTOVEN 1 mg tablet warfarin (COUMADIN) 2 mg tablet Take 1 tablet by mouth every afternoon. venlafaxine (EFFEXOR) 75 mg tablet Take 75 mg by mouth three times a day. MECLIZINE HCL (ANTIVERT ORAL) Take by mouth. albuterol HFA (PROVENTIL HFA, VENTOLIN HFA) 90 mcg/actuation inhaler Inhale 2 Puffs as instructed every 4 hours as needed for Wheezing/Shortness of Breath. (Patient not taking: Reported on 03/17/2023) atorvastatin (LIPITOR) 20 mg ORAL tablet Take 20 mg by mouth once daily. CANDESARTAN CILEXETIL (ATACAND ORAL) Take by mouth. (Patient not taking: Reported on 03/17/2023) CELECOXIB (CELEBREX ORAL) Take by mouth. (Patient not taking: Reported on 03/17/2023) Aspirin 81 mg ORAL Tab Take 81 mg by mouth. (Patient not taking: Reported on 03/17/2023) No family history on file. Social History Tobacco Use Smoking status: Never DATA REVIEWED: Most recent imaging ASSESSMENT/PLAN: 1. Acute cough - ICD9: 786.2, ICD10: R05.1 - Encouraged patient to follow up with PCP to discuss cough being related to ARB medication - Encouraged follow up with ld teacher - XR CHEST 2V FRONTAL/LAT - negative - CONSULT TO PULM Potential red flag symptoms discussed with the patient. Reviewed appropriate action plan to take ifred flag symptoms occur. Patient agreeable to treatment plan. Maria Esther Lieva Supervising provider was present and guided the care of the patient for the entire session on this date. All documentation was reviewed and agreed upon. Heather Shah APRN.CNP documented in this encounterSt. [facility]24 NoteHNO ID: [id number] Author: LAURA LIPSCOMB RT(R) Service: Radiology Author Type: Technologist Type: Progress Notes Filed: 03/17/2023 10:03 Note Text: Radiology Service Progress Note PATIENT NAME: Scott Talbert DATE OF SERVICE: March 17, 2023 TIME: 9:52 AM PATIENT IDENTITY VERIFICATION COMPLETED USING TWO (2) IDENTIFIERS: Name and Date of confirmed by patient verbally. FALL SCREENING: Has the patient had 2 falls in the last year or 1 fall with injury or currently using an Ambulatory Assistive Device (Walker, Cane, Wheelchair, Crutches, etc.)? No PATIENT GENDER DATA: Female. status: : No status: NO. PATIENT RELEVANT IMPLANT DATA REVIEWED: Yes RADIOLOGY DEPARTMENT: General X-ray: Exam(s) Completed: Chest X-Ray PERIPHERAL IV DATA: Not applicable SIGNED BY: RT Magdalena(R) March 17, 2023 9:52 [facility]01-22-2024 NoteHNO ID: [id number] Author: HEATHER SHAH APRN.CNP Service: ? Author Type: Nurse Practitioner Type: Progress Notes Filed: 03/17/2023 10:14 Note Text: CC: Patient presents with: Cough: Chest congestion x4 days HPI: Scott Talbert is a 77 year old female who presents to the office with complaint of chest congestion and cough, nonproductive for 4 days. Symptoms are staying the same. Associated symptoms includes cough. Denies fever, nausea, vomiting , and diarrhea. Treatments tried include nothing so far. with no relief of symptoms. Sick contacts: unknown. History of asthma, frequent episodes of bronchitis, chronic bronchitis, bronchiectasis or COPD: No Smoker: No Seasonal/environmental allergies: No The ROS is otherwise negative. The patient's pmh, medications, allergies, and past visits are reviewed. PHYSICAL EXAM: BP 159/94 Pulse (!) 121 Temp 36.1 ?C (97 ?F) Resp 18 Wt 98.2 kg (216 lb 6.4 oz) SpO2 95% General appearance: alert, cooperative, pleasant, in no acute distress Head: Normocephalic Eyes: EOM's intact, conjunctiva pink and moist, no icterus, sclera white, non-injected Ears: Right ear: External ear/canal- Normal, TM - clear with good landmarks. Left ear: External ear/canal- Normal, TM - clear with good landmarks Oropharynx:moist without lesions, No erythema, exudates or tonsillar hypertrophy. Heart: Negative. RRR without obvious murmur, gallop, or rubs. No ectopy. Lungs: moderate wheezing diffusely No past medical history on file. No past surgical history on file. ALLERGIES Prednisone MEDICATIONS losartan (COZAAR) 50 mg tablet JANTOVEN 1 mg tablet warfarin (COUMADIN) 2 mg tablet Take 1 tablet by mouth every afternoon. venlafaxine (EFFEXOR) 75 mg tablet Take 75 mg by mouth three times a day. atorvastatin (LIPITOR) 20 mg ORAL tablet Take 20 mg by mouth once daily. MECLIZINE HCL (ANTIVERT ORAL) Take by mouth. albuterol HFA (PROVENTIL HFA, VENTOLIN HFA) 90 mcg/actuation inhaler Inhale 2 Puffs as instructed every 4 hours as needed for Wheezing/Shortness of Breath. (Patient not taking: Reported on 03/17/2023) CANDESARTAN CILEXETIL (ATACAND ORAL) Take by mouth. (Patient not taking: Reported on 03/17/2023) CELECOXIB (CELEBREX ORAL) Take by mouth. (Patient not taking: Reported on 03/17/2023) Aspirin 81 mg ORAL Tab Take 81 mg by mouth. (Patient not taking: Reported on 03/17/2023) No family history on file. Social History Tobacco Use Smoking status: Never ASSESSMENT/PLAN: 1. Acute cough - ICD9: 786.2, ICD10: R05.1 - XR CHEST 2V FRONTAL/LAT * * * * Physician Interpretation * * * * EXAMINATION: CHEST RADIOGRAPH (2 VIEW FRONTAL AND LATERAL) CLINICAL HISTORY: Cough MQ: [id number] EXAM DATE/TIME: 03/17/2023 10:02 AM COMPARISON: No relevant prior studies available. RESULT: Lines, tubes, and devices: None. Lungs and pleura: No consolidation. No lung mass. No pleural effusion. No pneumothorax. Cardiomediastinal silhouette: Heart normal in size. Aorta mildly tortuous. Bones and soft tissues: Degenerative changes are present within the thoracic spine. IMPRESSION IMPRESSION: No acute radiographic abnormality. [employer] Insight Manager: CORNELIA Transcribe Date/Time: Mar 17 2023 10:02A Dictated by : MD Jonnie DIANE called in. Prescription instructions reviewed with patient as applicable. Potential red flag symptoms discussed with the patient. Reviewed appropriate action plan to take if red flag symptoms occur. Patient agreeable to treatment plan. Heather Shah APRN.[facility]01-22-2024 History of Present illness Narrative* Laura Lipscomb RT(R) - 03/17/2023 9:50 AM EST Radiology Service Progress Note PATIENT NAME: Scott Talbert DATE OF SERVICE: March 17, 2023 TIME: 9:52 AM PATIENT IDENTITY VERIFICATION COMPLETED USING TWO (2) IDENTIFIERS: Name and Date of confirmedby patient verbally. FALL SCREENING: Has the patient had 2 falls in the last year or 1 fall with injury or currently using an Ambulatory Assistive Device (Walker, Cane, Wheelchair, Crutches, etc.)? No PATIENT GENDER DATA: Female. status: : No status: NO. PATIENT RELEVANT IMPLANT DATA REVIEWED: Yes RADIOLOGY DEPARTMENT: General X-ray: Exam(s) Completed: Chest X-Ray PERIPHERAL IV DATA: Not applicable SIGNED BY: RT Magdalena(Roxann) March 17, 2023 9:52 AM [facility]. MICRO - Microbiology PROCEDURE: Urine Culture [*1] SOURCE: Urine BODY SITE: COLLECTED DATE/TIME: 06/04/2022 11:24 EDT RECEIVED DATE/TIME: 06/04/2022 20:56 EDT START DATE/TIME: 06/04/2022 20:56 EDT FREE TEXT SOURCE: FINAL REPORTS Final Report [] Verified Date/Time/Personnel: 06/06/2022 09:27 EDT >100,000 cfu/ml Multiple bacterial morphotypes present. Probable Contamination. Suggest recollection if clinically indicated. PRELIMINARY REPORTS Preliminary Report [] Verified Date/Time/Personnel: 06/05/2022 09:12 EDT Culture results pending. Performing Locations *1: This test was performed at: [facility], [address] [place] [address], [id number] , [facility] ([place])06-05-2022 Nurse Progress note patients daughter called into hospital at this time and voiced concern that patient was complainingof abdominal pain and appeared to have increased weakness. this nurse asked if patient had taken the oral zofran that was prescribed. patient had not. recommended taking a dose of oral zofran. this nu rse also recommended returning to the emergency department for further evaluation if needed Digitally Signed by Chelo Vera RN on 06/05/2022 07:20 PM [facility]04-12-2023 Nurse Progress note patient noted to have some difficulty getting to wheelchair at time of discharge. this nurse spoke with patient's daughters in regards to if she felt safe taking patient home at this time. patient's daughter voiced that she felt the patient was not back to her baseline, but felt comfortable taking patient home. that patient has problems at home getting out of recliners. this nurse assisted patient into car from wheelchair. patient appeared to have no difficulty arising from wheelchair and got into the car without difficulty. Digitally Signed by Chelo Vera RN on 06/05/2022 07:18 PM [facility]04-12-2023 Hospital Discharge instructions Patient Education 06/05/2022 15:08:44 Deep Vein Thrombosis Deep Vein Thrombosis Deep vein thrombosis (DVT) is a condition in which a blood clot forms in a deep vein, such as a lower leg, thigh, or arm vein. A clot is blood that has thickened into a gel or solid. This condition is dangerous. It can lead to serious and even life-threatening complications if the clot travels to the lungs and causes a blockage (pulmonary embolism). It can also damage veins in the leg. This can result in leg pain, swelling, discoloration, and sores (post- thrombotic syndrome). What are the causes? This condition may be caused by: A slowdown of blood flow. Damage to a vein. A condition that causes blood to clot more easily, such as an inherited clotting disorder. What increases the risk? The following factors may make you more likely to develop this condition: Being overweight. Being older, especially over age 60. Sitting or lying down for more than four hours. Being in the hospital. Lack of physical activity (sedentary lifestyle). , being in childbirth, or having recently given . Taking medicines that contain estrogen, such as medicines to prevent . Smoking. A history of any of the following: ?Blood clots or a blood clotting disease. ?Peripheral vascular disease. ?Inflammatory bowel disease. ?Cancer. ?Heart disease. ?Genetic conditions that affect how your blood clots, such as Factor V Leiden mutation. ?Neurological diseases that affect your legs (leg paresis). ?A recent injury, such as a car accident. ?Major or lengthy surgery. ?A central line placed inside a large vein. What are the signs or symptoms? Symptoms of this condition include: Swelling, pain, or tenderness in an arm or leg. Warmth, redness, or discoloration in an arm or leg. If the clot is in your leg, symptoms may be more noticeable or worse when you stand or walk. Some people may not develop any symptoms. How is this diagnosed? This condition is diagnosed with: A medical history and physical exam. Tests, such as: ?Blood tests. These are done to check how well your blood clots. ?Ultrasound. This is done to check for clots. ?Venogram. For this test, contrast dye is injected into a vein and X-rays are taken to check for any clots. How is this treated? Treatment for this condition depends on: The cause of your DVT. Your risk for bleeding or developing more clots. Any other medical conditions that you have. Treatment may include: Taking a blood thinner (anticoagulant). This type of medicine prevents clots from forming. It may be taken by mouth, injected under the skin, or injected through an IV (catheter). Injecting clot-dissolving medicines into the affected vein (catheter-directed thrombolysis). Having surgery. Surgery may be done to: ?Remove the clot. ?Place a filter in a large vein to catch blood clots before they reach the lungs. Some treatments may be continued for up to six months. Follow these instructions at home: If you are taking blood thinners: Take the medicine exactly as told by your health care provider. Some blood thinners need to be taken at the same time every day. Do not skip a dose. Talk with your health care provider before you take any medicines that contain aspirin or NSAIDs. These medicines increase your risk for dangerous bleeding. Ask your health care provider about foods and drugs that could change the way the medicine works (may interact). Avoid those things if your health care provider tells you to do so. Blood thinners can cause easy bruising and may make it difficult to stop bleeding. Because of this: ?Be very careful when using knives, scissors, or other sharp objects. ?Use an electric razor instead of a blade. ?Avoid activities that could cause injury or bruising, and follow instructions about how to preventfalls. Wear a medical alert bracelet or carry a card that lists what medicines you take. General instructions Take bjhj-cec-ibpmtwj and prescription medicines only as told by your health care provider. Return to your normal activities as told by your health care provider. Ask your health care provider what activities are safe for you. Wear compression stockings if recommended by your health care provider. Keep all follow-up visits as told by your health care provider. This is important. How is this prevented? To lower your risk of developing this condition again: For 30 or more minutes every day, do an activity that: ?Involves moving your arms and legs. ?Increases your heart rate. When traveling for longer than four hours: ?Exercise your arms and legs every hour. ?Drink plenty of water. ?Avoid drinking alcohol. Avoid sitting or lying for a long time without moving your legs. If you have surgery or you are hospitalized, ask about ways to prevent blood clots. These may include taking frequent walks or using anticoagulants. Stay at a healthy weight. If you are a woman who is older than age 35, avoid unnecessary use of medicines that contain estrogen, such as some control pills. Do not use any products that contain nicotine or tobacco, such as cigarettes and e-cigarettes. Thisis especially important if you take estrogen medicines. If you need help quitting, ask your health care provider. Contact a health care provider if: You miss a dose of your blood thinner. Your menstrual period is heavier than usual. You have unusual bruising. Get help right away if: You have: ?New or increased pain, swelling, or redness in an arm or leg. ?Numbness or tingling in an arm or leg. ?Shortness of breath. ?Chest pain. ?A rapid or irregular heartbeat. ?A severe headache or confusion. ?A cut that will not stop bleeding. There is blood in your vomit, stool, or urine. You have a serious fall or accident, or you hit your head. You feel light-headed or dizzy. You cough up blood. These symptoms may represent a serious problem that is an emergency. Do not wait to see if the symptoms will go away. Get medical help right away. Call your local emergency services (911 in the [place] Do not drive yourself to the hospital. Summary Deep vein thrombosis (DVT) is a condition in which a blood clot forms in a deep vein, such as a lower leg, thigh, or arm vein. Symptoms can include swelling, warmth, pain, and redness in your leg or arm. This condition may be treated with a blood thinner (anticoagulant medicine), medicine that is injected to dissolve blood clots,compression stockings, or surgery. If you are prescribed blood thinners, take them exactly as told. This information is not intended to replace advice given to you by your health care provider. Make sure you discuss any questions you have with your health care provider. Document Released: 02/10/2006 Document Revised: 01/23/2018 Document Reviewed: 07/11/2017 [employer] Patient Education 2020 Photos to Photos. 06/05/2022 13:46:06 Pulmonary Embolism Pulmonary Embolism A pulmonary embolism (PE) is a sudden blockage or decrease of blood flow in one or both lungs. Mostblockages come from a blood clot that forms in the vein of a lower leg, thigh, or arm (deep vein thrombosis, DVT) and travels to the lungs. A clot is blood that has thickened into a gel or solid. PE is a dangerous and life-threatening condition that needs to be treated right away. What are the causes? This condition is usually caused by a blood clot that forms in a vein and moves to the lungs. In rare cases, it may be caused by air, fat, part of a tumor, or other tissue that moves through the veins and into the lungs. What increases the risk? The following factors may make you more likely to develop this condition: Experiencing a traumatic injury, such as breaking a hip or leg. Having: ?A spinal cord injury. ?Orthopedic surgery, especially hip or knee replacement. ?Any major surgery. ?A stroke. ?DVT. ?Blood clots or blood clotting disease. ?Long-term (chronic) lung or heart disease. ?Cancer treated with chemotherapy. ?A central venous catheter. Taking medicines that contain estrogen. These include control pills and hormone replacement therapy. Being: ?. ?In the period of time after your baby is delivered (). ?Older than age 60. ?Overweight. ?A smoker, especially if you have other risks. What are the signs or symptoms? Symptoms of this condition usually start suddenly and include: Shortness of breath during activity or at rest. Coughing, coughing up blood, or coughing up blood-tinged mucus. Chest pain that is often worse with deep breaths. Rapid or irregular heartbeat. Feeling light-headed or dizzy. Fainting. Feeling anxious. Fever. Sweating. Pain and swelling in a leg. This is a symptom of DVT, which can lead to PE. How is this diagnosed? This condition may be diagnosed based on: Your medical history. A physical exam. Blood tests. CT pulmonary angiogram. This test checks blood flow in and around your lungs. Ventilation-perfusion scan, also called a lung VQ scan. This test measures air flow and blood flow to the lungs. An ultrasound of the legs. How is this treated? Treatment for this condition depends on many factors, such as the cause of your PE, your risk for bleeding or developing more clots, and other medical conditions you have. Treatment aims to remove, dissolve, or stop blood clots from forming or growing larger. Treatment may include: Medicines, such as: ?Blood thinning medicines (anticoagulants) to stop clots from forming. ?Medicines that dissolve clots (thrombolytics). Procedures, such as: ?Using a flexible tube to remove a blood clot (embolectomy) or to deliver medicine to destroy it (catheter-directed thrombolysis). ?Inserting a filter into a large vein that carries blood to the heart (inferior vena cava). This filter (vena cava filter) catches blood clots before they reach the lungs. ?Surgery to remove the clot (surgical embolectomy). This is rare. You may need a combination of immediate, long-term (up to 3 months after diagnosis), and extended (more than 3 months after diagnosis) treatments. Your treatment may continue for several months (maintenance therapy). You and your health care provider will work together to choose the treatment program that is best for you. Follow these instructions at home: Medicines Take drtp-lwp-dyxzekq and prescription medicines only as told by your health care provider. If you are taking an anticoagulant medicine: ?Take the medicine every day at the same time each day. ?Understand what foods and drugs interact with your medicine. ?Understand the side effects of this medicine, including excessive bruising or bleeding. Ask your health care provider or pharmacist about other side effects. General instructions Wear a medical alert bracelet or carry a medical alert card that says you have had a PE and lists what medicines you take. Ask your health care provider when you may return to your normal activities. Avoid sitting or lyingfor a long time without moving. Maintain a healthy weight. Ask your health care provider what weight is healthy for you. Do not use any products that contain nicotine or tobacco, such as cigarettes, e- cigarettes, and chewing tobacco. If you need help quitting, ask your health care provider. Talk with your health care provider about any travel plans. It is important to make sure that you are still able to take your medicine while on trips. Keep all follow-up visits as told by your health care provider. This is important. Contact a health care provider if: You missed a dose of your blood thinner medicine. Get help right away if: You have: ?New or increased pain, swelling, warmth, or redness in an arm or leg. ?Numbness or tingling in an arm or leg. ?Shortness of breath during activity or at rest. ?A fever. ?Chest pain. ?A rapid or irregular heartbeat. ?A severe headache. ?Vision changes. ?A serious fall or accident, or you hit your head. ?Stomach (abdominal) pain. ?Blood in your vomit, stool, or urine. ?A cut that will not stop bleeding. You cough up blood. You feel light-headed or dizzy. You cannot move your arms or legs. You are confused or have memory loss. These symptoms may represent a serious problem that is an emergency. Do not wait to see if the symptoms will go away. Get medical help right away. Call your local emergency services (191 in the [place] Do not drive yourself to the hospital. Summary A pulmonary embolism (PE) is a sudden blockage or decrease of blood flow in one or both lungs. PE is a dangerous and life-threatening condition that needs to be treated right away. Treatments for this condition usually include medicines to thin your blood (anticoagulants) or medicines to break apart blood clots (thrombolytics). If you are given blood thinners, it is important to take the medicine every day at the same time each day. Understand what foods and drugs interact with any medicines that you are taking. If you have signs of PE or DVT, call your local emergency services (101 in the [place] This information is not intended to replace advice given to you by your health care provider. Make sure you discuss any questions you have with your health care provider. Document Released: 02/07/2001 Document Revised: 11/18/2018 Document Reviewed: 11/18/2018 [employer] Patient Education 2020 Photos to Photos. Follow Up Care 06/03/2022 16:29:52 With:COLE CARDONA DO Address: [facility] [address] [place] [phone] When:5 to 7 days Comments:Please call your doctor to schedule your post-hospital follow-up appointment. [facility] 04-12-2023 Note Discharge Instructions Thank you for allowing [facility] to assist you with your healthcare needs. The following is importantdischarge information regarding your hospital visit. Your Care Team [facility] Your Diagnosis Pulmonary emboli KOLBY (acute kidney injury) Dehydration Fall Weakness or fatigue Hypertension What to do next Instructions From Your Doctor You were admitted due to weakness from what sounds like a GI bug. You did have an acute kidney injury from poor intake on top of nausea, vomiting and diarrhea. Your kidney function improved to normaltoday with fluids and increased oral intake. You stated you still had some nausea today and we willsend you home with a prescription for Zofran if you need it. On evaluation in the ED, the ED physician checked a lab called a D-dimer and this was noted to be markedly elevated. He then sent you for a CTA of the chest which revealed right pulmonary emboli. You were admitted for treatment of this. We checked venous dopplers to see if you had any blood clots in your legs and it did reveal blood clots in your left leg. We started you on Eliquis 10 mg oral twice daily for the first week. You will then decrease the dose to 5 mg oral twice daily. Please follow-up with your PCP as soon as possible. Your PCP may want to do labs to see if you have any clotting factors that caused this. I will defer to your PCP to decide this. Please return to the ED with any severe shortness of breath or chest pain. Follow Up Appointments Follow Up with COLE CARDONA DO When Within 5 to 7 days Why: Please call your doctor to schedule your post-hospital follow-up appointment. Where: [facility] [address] [place] [phone] The Following Activity and Diet Have Been Ordered for You Discharge Activity - Ordered -- Resume your pre-hospitalization activity, 06/05/22 13:57:00 EDT Discharge Diet - Ordered -- No changes were made to your diet during your hospital stay. Please resume your pre hospitalization diet on discharge., 06/05/22 13:57:00 EDT Allergies predniSONE Medications Please ask your primary doctor or pharmacist before taking any other medication not listed, including over the counter drugs, herbal medications, vitamins and or supplements as they may interact withyour home medications. What How Much When Instructions Last Dose New apixaban (Eliquis 5 mg oral tablet) [10mg BID x 7days-then 5mg BID] by mouth Two (2) times a day Duration: 30 Days Pickup at [facility]/pharmacy #[id number] 06/05 @ 9am New ondansetron (Zofran 4 mg oral tablet) 1 tab(s) by mouth Every 6 hours as needed for Nausea/Vomiting Pickup at [facility]/pharmacy #[id number] 06/04 @ 530pm Unchanged aspirin (aspirin 81 mg oral tablet, chewable) 1 tab(s) Chewed Once a day 06/05 @ 9am Unchanged atorvastatin (atorvastatin 40 mg oral tablet) 1 tab(s) by mouth Once a day 06/04 @ 9pm Unchanged celecoxib (CeleBREX 200 mg oral capsule) 1 cap by mouth Once a day do not continue until clarified with PCP at follow up appt due to increase bleeding risk Unchanged cholecalciferol (Vitamin D3) 10 Microgram by mouth Every day not given Unchanged losartan (losartan 50 mg oral tablet) 1 tab(s) by mouth Once a day not given Unchanged meclizine (meclizine 25 mg oral tablet) 1 tab(s) by mouth Once a day 06/05 @ 9am Unchanged venlafaxine (venlafaxine 37.5 mg oral tablet) 1 tab(s) by mouth Once a day 06/05 @ 9am Pharmacy Information [facility]/pharmacy #[id number]: [address], [place] [id number] [phone] Please take this list to your next doctor s visit. Bring all medications you take, including over the counter medications, herbals and other supplements with you to your doctor s visit. Patients and families are reminded to discard old lists and to update any records with all medication providers or retail pharmacies. Medication Leaflets ondansetron (oral) (on DELMER se karina) Yoly Frederick Zuplenz What is the most important information I should know about ondansetron? You should not use ondansetron if you are also using apomorphine (Apokyn). What is ondansetron? Ondansetron blocks the actions of chemicals in the body that can trigger nausea and vomiting. Ondansetron is used to prevent nausea and vomiting that may be caused by surgery, cancer chemotherapy, or radiation treatment. Ondansetron may be used for purposes not listed in this medication guide. What should I discuss with my health care provider before taking ondansetron? You should not use ondansetron if: you are also using apomorphine (Apokyn); or you are allergic to ondansetron or similar medicines (dolasetron, granisetron, palonosetron). To make sure ondansetron is safe for you, tell your doctor if you have: liver disease; an electrolyte imbalance (such as low levels of potassium or magnesium in your blood); congestive heart failure, slow heartbeats; a personal or family history of long QT syndrome; or a blockage in your digestive tract (stomach or intestines). Ondansetron is not expected to harm an unborn baby. Tell your doctor if you are . It is not known whether ondansetron passes into breast milk or if it could harm a nursing baby. Tell your doctor if you are breast-feeding a baby. Ondansetron is not approved for use by anyone younger than 4 years old. Ondansetron orally disintegrating tablets may contain phenylalanine. Tell your doctor if you have phenylketonuria (PKU). How should I take ondansetron? Follow all directions on your prescription label. Do not take this medicine in larger or smaller amounts or for longer than recommended. Ondansetron can be taken with or without food. The first dose of ondansetron is usually taken before the start of your surgery, chemotherapy, or radiation treatment. Follow your doctor's dosing instructions very carefully. Take the ondansetron regular tablet with a full glass of water. To take the orally disintegrating tablet (Zofran ODT): Keep the tablet in its blister pack until you are ready to take it. Open the package and peel back the foil. Do not push a tablet through the foil or you may damage the tablet. Use dry hands to remove the tablet and place it in your mouth. Do not swallow the tablet whole. Allow it to dissolve in your mouth without chewing. Swallow several times as the tablet dissolves. To use ondansetron oral soluble film (strip) (Zuplenz): Keep the strip in the foil pouch until you are ready to use the medicine. Using dry hands, remove the strip and place it on your tongue. It will begin to dissolve right away. Do not swallow the strip whole. Allow it to dissolve in your mouth without chewing. Swallow several times after the strip dissolves. If desired, you may drink liquid to help swallow the dissolved strip. Wash your hands after using Zuplenz. Measure liquid medicine with the dosing syringe provided, or with a special dose-measuring spoon ormedicine cup. If you do not have a dose-measuring device, ask your pharmacist for one. Store at room temperature away from moisture, heat, and light. Store liquid medicine in an upright position. What happens if I miss a dose? Take the missed dose as soon as you remember. Skip the missed dose if it is almost time for your next scheduled dose. Do not take extra medicine to make up the missed dose. What happens if I overdose? Seek emergency medical attention or call the Poison Help line at . Overdose symptoms may include sudden loss of vision, severe constipation, feeling light-headed, or fainting. What should I avoid while taking ondansetron? Ondansetron may impair your thinking or reactions. Be careful if you drive or do anything that requires you to be alert. What are the possible side effects of ondansetron? Get emergency medical help if you have signs of an allergic reaction: rash, hives; fever, chills, difficult breathing; swelling of your face, lips, tongue, or throat. Call your doctor at once if you have: severe constipation, stomach pain, or bloating; headache with chest pain and severe dizziness, fainting, fast or pounding heartbeats; fast or pounding heartbeats; jaundice (yellowing of the skin or eyes); blurred vision or temporary vision loss (lasting from only a few minutes to several hours); high levels of serotonin in the body--agitation, hallucinations, fever, fast heart rate, overactivereflexes, nausea, vomiting, diarrhea, loss of coordination, fainting. Common side effects may include: diarrhea or constipation; headache; drowsiness; or tired feeling. This is not a complete list of side effects and others may occur. Call your doctor for medical advice about side effects. You may report side effects to FDA at 5-368-HMD-9672. What other drugs will affect ondansetron? Ondansetron can cause a serious heart problem, especially if you use certain medicines at the same time, including antibiotics, antidepressants, heart rhythm medicine, antipsychotic medicines, and medicines to treat cancer, malaria, HIV or AIDS. Tell your doctor about all medicines you use, and those you start or stop using during your treatment with ondansetron. Taking ondansetron while you are using certain other medicines can cause high levels of serotonin to build up in your body, a condition called 'serotonin syndrome,' which can be fatal. Tell your doctor if you also use: medicine to treat depression; medicine to treat a psychiatric disorder; a narcotic (opioid) medication; or medicine to prevent nausea and vomiting. This list is not complete and many other drugs can interact with ondansetron. This includes prescription and nahl-lsy-lwtflaw medicines, vitamins, and herbal products. Give a list of all your medicines to any healthcare provider who treats you. Where can I get more information? Your pharmacist can provide more information about ondansetron. Remember, keep this and all other medicines out of the reach of children, never share your medicines with others, and use this medication only for the indication prescribed. Every effort has been made to ensure that the information provided by [employer]. [employer]') is accurate, up-to-date, and complete, but no guarantee is made to that effect. Drug information contained herein may be time sensitive. [facility] [facility] [employer] information has been compiled for use by healthcare practitioners and consumers in the [place] and therefore [employer] does not warrant that uses outside of the [place] are appropriate, unless specifically indicated otherwise. The [employer] drug information does not endorse drugs, diagnose patients or recommend therapy. The [employer] drug information isan informational resource designed to assist licensed healthcare practitioners in caring for their p atients and/or to serve consumers viewing this service as a supplement to, and not a substitute for, the expertise, skill, knowledge and judgment of healthcare practitioners. The absence of a warningfor a given drug or drug combination in no way should be construed to indicate that the drug or drug combination is safe, effective or appropriate for any given patient. [facility] [facility] does not assume any responsibility for any aspect of healthcare administered with the aid of information [facility] [facility] [employer] provides. The information contained herein is not intended to cover all possible uses, directions, precautions, warnings, drug interactions, allergic reactions, or adverse effects. If you have questions about the drugs you are taking, check with your doctor, nurse or pharmacist. Copyright [id number] [employer]. Version: 13.. Revision Date: 12/15/2015. apixaban (a PIX a ban) Luis A What is the most important information I should know about apixaban? Apixaban increases your risk of severe or fatal bleeding, especially if you take certain medicines at the same time (including some tpag-dbh-selosmt medicines). Tell your doctor about all medicines you have recently used. Call your doctor at once if you have signs of bleeding such as: easy bruising, unusual bleeding, unexpected pain or swelling, feeling very weak or dizzy, bleeding gums, nosebleeds, heavy menstrual bleeding, blood in your urine or stools, coughing up blood or vomit that looks like coffee grounds, orany bleeding that will not stop. Apixaban can cause a very serious blood clot around your spinal cord that can lead to long-term or permanent paralysis. This type of blood clot can occur during a spinal tap or spinal anesthesia (epidural), especially if you have a genetic spinal defect, if you use a spinal catheter, if you've had spinal surgery or repeated spinal taps, or if you use other drugs that can affect blood clotting. Get emergency medical help if you have symptoms of a spinal cord blood clot such as tingling, numbness, or muscle weakness especially in your legs and feet. Do not stop taking apixaban unless your doctor tells you to. Stopping suddenly can increase your risk of blood clot or stroke. What is apixaban? Apixaban is used to lower the risk of stroke caused by a blood clot in people with a heart rhythm disorder called atrial fibrillation. Apixaban is also used after hip or knee replacement surgery to prevent a type of blood clot called deep vein thrombosis (DVT), which can lead to blood clots in the lungs (pulmonary embolism). Apixaban is also used to treat DVT or pulmonary embolism (PE), and to lower your risk of having a repeat DVT or PE. Apixaban may also be used for purposes not listed in this medication guide. What should I discuss with my healthcare provider before taking apixaban? You should not take apixaban if you are allergic to it, or if you have active bleeding from a surgery, injury, or other cause. Apixaban may cause you to bleed more easily, especially if you have a bleeding disorder that is inherited or caused by disease. Tell your doctor if you have an artificial heart valve, or if you have ever had: bleeding problems; antiphospholipid syndrome, especially if you have a triple positive antibody test; or liver or kidney disease. Apixaban can cause a very serious blood clot around your spinal cord if you undergo a spinal tap orreceive spinal anesthesia (epidural). This type of blood clot could cause long-term paralysis, and may be more likely to occur if: you have a spinal catheter in place or if a catheter has been recently removed; you have a history of spinal surgery or repeated spinal taps; you have recently had a spinal tap or epidural anesthesia; you take aspirin or other NSAIDs (nonsteroidal anti-inflammatory drugs)--ibuprofen (Advil, Motrin),naproxen (Aleve), diclofenac, indomethacin, meloxicam, and others; or you are using other medicines to treat or prevent blood clots. Taking apixaban may increase the risk of bleeding while you are or during your delivery. Tell your doctor if you are or plan to become . Do not breastfeed. How should I take apixaban? Follow all directions on your prescription label and read all medication guides or instruction sheets. Your doctor may occasionally change your dose. Use the medicine exactly as directed. You may take apixaban with or without food. If you cannot swallow a tablet whole, crush it and mix with water, apple juice, or applesauce. Swallow the mixture right away without chewing. A crushed tablet mixture may also be given through a nasogastric (NG) feeding tube. Read and carefully follow any Instructions for Use provided with your medicine. Apixaban can make it easier for you to bleed, even from a minor injury. Seek medical attention if you have bleeding that will not stop. Tell your doctor if you have a planned surgery or dental work. You may need to stop taking apixabanfor a short time. Do not stop taking apixaban unless your doctor tells you to. If you stop taking apixaban for any reason, your doctor may prescribe another medicine to prevent blood clots. Store at room temperature away from moisture and heat. What happens if I miss a dose? Take the missed dose on the same day you remember it. Take your next dose at the regular time and stay on your twice-daily schedule. Do not take two doses at one time. Get your prescription refilled before you run out of medicine completely. What happens if I overdose? Seek emergency medical attention or call the Poison Help line at . What should I avoid while taking apixaban? Avoid activities that may increase your risk of bleeding or injury. Use extra care while shaving orbrushing your teeth. What are the possible side effects of apixaban? Get emergency medical help if you have signs of an allergic reaction: hives; chest pain, wheezing, difficult breathing; feeling light-headed; swelling of your face, lips, tongue, or throat. Also seek emergency medical attention if you have symptoms of a spinal blood clot such as tingling,numbness, or muscle weakness especially in your legs and feet. Call your doctor at once if you have: easy bruising, unusual bleeding (nose, mouth, vagina, or rectum), bleeding from wounds or needle injections, any bleeding that will not stop; heavy menstrual bleeding; headache, dizziness, weakness, feeling like you might pass out; urine that looks red, pink, or brown; or black or bloody stools, coughing up blood or vomit that looks like coffee grounds. This is not a complete list of side effects and others may occur. Call your doctor for medical advice about side effects. You may report side effects to FDA at 3-343-MLY-3128. What other drugs will affect apixaban? Sometimes it is not safe to use certain medications at the same time. Some drugs can affect your blood levels of other drugs you take, which may increase side effects or make the medications less effective. Many other drugs (including some ogsn-ryw-kxtxkvw medicines) can increase your risk of bleeding or blood clots. Tell your doctor about all medicines you have recently used, especially: any other medicines to treat or prevent blood clots; a blood thinner such as heparin or warfarin (Coumadin, Jantoven); an antidepressant; or aspirin or other NSAID (nonsteroidal anti-inflammatory drug) used [facility]. This list is not complete and many other drugs may affect apixaban. This includes prescription and ygxz-vul-iheiyat medicines, vitamins, and herbal products. Not all possible drug interactions are listed here. Where can I get more information? Your pharmacist can provide more information about apixaban. Remember, keep this and all other medicines out of the reach of children, never share your medicines with others, and use this medication only for the indication prescribed. Every effort has been made to ensure that the information provided by [employer]') is accurate, up-to-date, and complete, but no guarantee is made to that effect. Drug information contained herein may be time sensitive. [employer] [facility] [employer] information has been compiled for use by healthcare practitioners and consumers in the [place] and therefore [employer] does not warrant that uses outside of the [place] are appropriate, unless specifically indicated otherwise. [facility] [facility] [employer]'s drug information does not endorse drugs, diagnose patients or recommend therapy. [facility] [facility] [employer]'s drug information isan informational resource designed to assist licensed healthcare practitioners in caring for their p atients and/or to serve consumers viewing this service as a supplement to, and not a substitute for, the expertise, skill, knowledge and judgment of healthcare practitioners. The absence of a warningfor a given drug or drug combination in no way should be construed to indicate that the drug or drug combination is safe, effective or appropriate for any given patient. [facility] does not assume any responsibility for any aspect of healthcare administered with the aid of information [facility] provides. The information contained herein is not intended to cover all possible uses, directions, precautions, warnings, drug interactions, allergic reactions, or adverse effects. If you have questions about the drugs you are taking, check with your doctor, nurse or pharmacist. Copyright [id number] [facility]. Version: 6.01. Revision Date: 10/17/2020. [employer] Deep Vein Thrombosis Deep vein thrombosis (DVT) is a condition in which a blood clot forms in a deep vein, such as a lower leg, thigh, or arm vein. A clot is blood that has thickened into a gel or solid. This condition is dangerous. It can lead to serious and even life-threatening complications if the clot travels to the lungs and causes a blockage (pulmonary embolism). It can also damage veins in the leg. This can result in leg pain, swelling, discoloration, and sores (post-thrombotic syndrome). What are the causes? This condition may be caused by: A slowdown of blood flow. Damage to a vein. A condition that causes blood to clot more easily, such as an inherited clotting disorder. What increases the risk? The following factors may make you more likely to develop this condition: Being overweight. Being older, especially over age 60. Sitting or lying down for more than four hours. Being in the hospital. Lack of physical activity (sedentary lifestyle). , being in childbirth, or having recently given . Taking medicines that contain estrogen, such as medicines to prevent . Smoking. A history of any of the following: ? Blood clots or a blood clotting disease. ? Peripheral vascular disease. ? Inflammatory bowel disease. ? Cancer. ? Heart disease. ? Genetic conditions that affect how your blood clots, such as Factor V Leiden mutation. ? Neurological diseases that affect your legs (leg paresis). ? A recent injury, such as a car accident. ? Major or lengthy surgery. ? A central line placed inside a large vein. What are the signs or symptoms? Symptoms of this condition include: Swelling, pain, or tenderness in an arm or leg. Warmth, redness, or discoloration in an arm or leg. If the clot is in your leg, symptoms may be more noticeable or worse when you stand or walk. Some people may not develop any symptoms. How is this diagnosed? This condition is diagnosed with: A medical history and physical exam. Tests, such as: ? Blood tests. These are done to check how well your blood clots. ? Ultrasound. This is done to check for clots. ? Venogram. For this test, contrast dye is injected into a vein and X-rays are taken to check for anyclots. How is this treated? Treatment for this condition depends on: The cause of your DVT. Your risk for bleeding or developing more clots. Any other medical conditions that you have. Treatment may include: Taking a blood thinner (anticoagulant). This type of medicine prevents clots from forming. It may be taken by mouth, injected under the skin, or injected through an IV (catheter). Injecting clot-dissolving medicines into the affected vein (catheter-directed thrombolysis). Having surgery. Surgery may be done to: ? Remove the clot. ? Place a filter in a large vein to catch blood clots before they reach the lungs. Some treatments may be continued for up to six months. Follow these instructions at home: If you are taking blood thinners: Take the medicine exactly as told by your health care provider. Some blood thinners need to be taken at the same time every day. Do not skip a dose. Talk with your health care provider before you take any medicines that contain aspirin or NSAIDs. These medicines increase your risk for dangerous bleeding. Ask your health care provider about foods and drugs that could change the way the medicine works (may interact). Avoid those things if your health care provider tells you to do so. Blood thinners can cause easy bruising and may make it difficult to stop bleeding. Because of this: ? Be very careful when using knives, scissors, or other sharp objects. ? Use an electric razor instead of a blade. ? Avoid activities that could cause injury or bruising, and follow instructions about how to prevent falls. Wear a medical alert bracelet or carry a card that lists what medicines you take. General instructions Take gqil-trx-aievkmj and prescription medicines only as told by your health care provider. Return to your normal activities as told by your health care provider. Ask your health care provider what activities are safe for you. Wear compression stockings if recommended by your health care provider. Keep all follow-up visits as told by your health care provider. This is important. How is this prevented? To lower your risk of developing this condition again: For 30 or more minutes every day, do an activity that: ? Involves moving your arms and legs. ? Increases your heart rate. When traveling for longer than four hours: ? Exercise your arms and legs every hour. ? Drink plenty of water. ? Avoid drinking alcohol. Avoid sitting or lying for a long time without moving your legs. If you have surgery or you are hospitalized, ask about ways to prevent blood clots. These may include taking frequent walks or using anticoagulants. Stay at a healthy weight. If you are a woman who is older than age 35, avoid unnecessary use of medicines that contain estrogen, such as some control pills. Do not use any products that contain nicotine or tobacco, such as cigarettes and e-cigarettes. Thisis especially important if you take estrogen medicines. If you need help quitting, ask your health care provider. Contact a health care provider if: You miss a dose of your blood thinner. Your menstrual period is heavier than usual. You have unusual bruising. Get help right away if: You have: ? New or increased pain, swelling, or redness in an arm or leg. ? Numbness or tingling in an arm or leg. ? Shortness of breath. ? Chest pain. ? A rapid or irregular heartbeat. ? A severe headache or confusion. ? A cut that will not stop bleeding. There is blood in your vomit, stool, or urine. You have a serious fall or accident, or you hit your head. You feel light-headed or dizzy. You cough up blood. These symptoms may represent a serious problem that is an emergency. Do not wait to see if the symptoms will go away. Get medical help right away. Call your local emergency services (911 in the [place] Do not drive yourself to the hospital. Summary Deep vein thrombosis (DVT) is a condition in which a blood clot forms in a deep vein, such as a lower leg, thigh, or arm vein. Symptoms can include swelling, warmth, pain, and redness in your leg or arm. This condition may be treated with a blood thinner (anticoagulant medicine), medicine that is injected to dissolve blood clots,compression stockings, or surgery. If you are prescribed blood thinners, take them exactly as told. This information is not intended to replace advice given to you by your health care provider. Make sure you discuss any questions you have with your health care provider. Document Released: 02/10/2006 Document Revised: 01/23/2018 Document Reviewed: 07/11/2017 [employer] 2020 Photos to Photos. Pulmonary Embolism A pulmonary embolism (PE) is a sudden blockage or decrease of blood flow in one or both lungs. Mostblockages come from a blood clot that forms in the vein of a lower leg, thigh, or arm (deep vein thrombosis, DVT) and travels to the lungs. A clot is blood that has thickened into a gel or solid. PE is a dangerous and life-threatening condition that needs to be treated right away. What are the causes? This condition is usually caused by a blood clot that forms in a vein and moves to the lungs. In rare cases, it may be caused by air, fat, part of a tumor, or other tissue that moves through the veins and into the lungs. What increases the risk? The following factors may make you more likely to develop this condition: Experiencing a traumatic injury, such as breaking a hip or leg. Having: ? A spinal cord injury. ? Orthopedic surgery, especially hip or knee replacement. ? Any major surgery. ? A stroke. ? DVT. ? Blood clots or blood clotting disease. ? Long-term (chronic) lung or heart disease. ? Cancer treated with chemotherapy. ? A central venous catheter. Taking medicines that contain estrogen. These include control pills and hormone replacement therapy. Being: ? . ? In the period of time after your baby is delivered (). ? Older than age 60. ? Overweight. ? A smoker, especially if you have other risks. What are the signs or symptoms? Symptoms of this condition usually start suddenly and include: Shortness of breath during activity or at rest. Coughing, coughing up blood, or coughing up blood-tinged mucus. Chest pain that is often worse with deep breaths. Rapid or irregular heartbeat. Feeling light-headed or dizzy. Fainting. Feeling anxious. Fever. Sweating. Pain and swelling in a leg. This is a symptom of DVT, which can lead to PE. How is this diagnosed? This condition may be diagnosed based on: Your medical history. A physical exam. Blood tests. CT pulmonary angiogram. This test checks blood flow in and around your lungs. Ventilation-perfusion scan, also called a lung VQ scan. This test measures air flow and blood flow to the lungs. An ultrasound of the legs. How is this treated? Treatment for this condition depends on many factors, such as the cause of your PE, your risk for bleeding or developing more clots, and other medical conditions you have. Treatment aims to remove, dissolve, or stop blood clots from forming or growing larger. Treatment may include: Medicines, such as: ? Blood thinning medicines (anticoagulants) to stop clots from forming. ? Medicines that dissolve clots (thrombolytics). Procedures, such as: ? Using a flexible tube to remove a blood clot (embolectomy) or to deliver medicine to destroy it (catheter-directed thrombolysis). ? Inserting a filter into a large vein that carries blood to the heart (inferior vena cava). This filter (vena cava filter) catches blood clots before they reach the lungs. ? Surgery to remove the clot (surgical embolectomy). This is rare. You may need a combination of immediate, long-term (up to 3 months after diagnosis), and extended (more than 3 months after diagnosis) treatments. Your treatment may continue for several months (maintenance therapy). You and your health care provider will work together to choose the treatment program that is best for you. Follow these instructions at home: Medicines Take veyq-qxm-ispfgrn and prescription medicines only as told by your health care provider. If you are taking an anticoagulant medicine: ? Take the medicine every day at the same time each day. ? Understand what foods and drugs interact with your medicine. ? Understand the side effects of this medicine, including excessive bruising or bleeding. Ask your health care provider or pharmacist about other side effects. General instructions Wear a medical alert bracelet or carry a medical alert card that says you have had a PE and lists what medicines you take. Ask your health care provider when you may return to your normal activities. Avoid sitting or lyingfor a long time without moving. Maintain a healthy weight. Ask your health care provider what weight is healthy for you. Do not use any products that contain nicotine or tobacco, such as cigarettes, e- cigarettes, and chewing tobacco. If you need help quitting, ask your health care provider. Talk with your health care provider about any travel plans. It is important to make sure that you are still able to take your medicine while on trips. Keep all follow-up visits as told by your health care provider. This is important. Contact a health care provider if: You missed a dose of your blood thinner medicine. Get help right away if: You have: ? New or increased pain, swelling, warmth, or redness in an arm or leg. ? Numbness or tingling in an arm or leg. ? Shortness of breath during activity or at rest. ? A fever. ? Chest pain. ? A rapid or irregular heartbeat. ? A severe headache. ? Vision changes. ? A serious fall or accident, or you hit your head. ? Stomach (abdominal) pain. ? Blood in your vomit, stool, or urine. ? A cut that will not stop bleeding. You cough up blood. You feel light-headed or dizzy. You cannot move your arms or legs. You are confused or have memory loss. These symptoms may represent a serious problem that is an emergency. Do not wait to see if the symptoms will go away. Get medical help right away. Call your local emergency services (911 in the [place] Do not drive yourself to the hospital. Summary A pulmonary embolism (PE) is a sudden blockage or decrease of blood flow in one or both lungs. PE is a dangerous and life-threatening condition that needs to be treated right away. Treatments for this condition usually include medicines to thin your blood (anticoagulants) or medicines to break apart blood clots (thrombolytics). If you are given blood thinners, it is important to take the medicine every day at the same time each day. Understand what foods and drugs interact with any medicines that you are taking. If you have signs of PE or DVT, call your local emergency services (911 in the [place] This information is not intended to replace advice given to you by your health care provider. Make sure you discuss any questions you have with your health care provider. Document Released: 02/07/2001 Document Revised: 11/18/2018 Document Reviewed: 11/18/2018 [employer] Patient Education 2020 [employer] Additional Information VACCINATE! IT SAVES LIVES! Members of the community who have not yet received the COVID-19 vaccine and would like to receive it can visit one of [facility] vaccine clinics. There are many vaccine clinic locations within the [facility]. For locations and available times, please visit https://gettheshot.coronavirus.[place].gov/. It is important to note that some COVID mobile vaccine clinics are held outdoors and may be canceled in rainy or stormy conditions. To learn more about pediatric vaccinations (ages 5-11), we invite you to visit the [facility] webpage. https://www.[facility].org/pages/9536-Qussh-Emnpdoetpxc-Lbwytshhun-Zljze-Hcf stions.htmlTo learn more about the COVID-19 vaccine, we invite you to visit the CDC website for a list of frequently asked questions. https://www.cdc.gov/coronavirus/2019-ncov/vaccines/faq.html [facility] Patient Portal Access Instructions: Stay connected with your healthcare team and access your personal medical information anytime with the [facility] Patient Portal.If you would like a full copy of your medical records, please contact the [facility] Medical Records Department, Friday through Friday between 8a.m. and 4:30p.m. Please follow the directions below to access the portal: 1.Access the email account you provided upon registration to the hospital.2.Look for an invitation email from [facility].3.Open the email and access the invitation link: Accept Invitation to [facility]4.Fill in the required davidson to create your account. Sign into [email or web address] with your username and password that you created in the above steps to stay up to date. You can then view a summary of results, a summary of your visits, and the ability to download your summaries to your computer or send the information securely to a physician. Remember that your healthcare information is confidential, so carefully consider who you will allow to register on the [facility] Patient Portal for access to your information. You can also access the [facility] Patient Portal on the [employer] melania. Simply click on Health Records under [employer] and then click on the [facility] logo. HOW TO SAFELY DISPOSE OF PRESCRIPTION MEDICATIONS Please use one of the following methods to safely dispose of your unused medications. 1.Use a drug disposal kit: the drug disposal pouch allows you to safely discard your old and unuseddrugs. Ask your nurse to give you one when you are discharged.2.Visit a local take-back location: Many local pharmacies and police departments have programs that collect old and unwanted prescriptiondrugs. Call your local pharmacy or go to http://[employer]/5N9Kc8b to find one close to you.3.Make use of household items: Use cat litter or old coffee grounds to dispose medications if other options arenot available. Mix your drugs with these household products, seal them in an airtight container andthrow it into the garbage. Call [facility]: [phone] to be sure your drugs can be disposed of in this way. Some medicines may require a different approach.4.Never flush your medications down the toilet. IF YOU HAVE BEEN PRESCRIBED AN OPIOID FOR PAIN If you have been prescribed an opioid (such as hydrocodone, oxycodone or morphine), it is critical to understand the possible side effects and risks of opioid pain medications. Even when taken as directed, opioids can have several side effects including: Tolerance, meaning you might need to take more of a medication for the same pain relief. Nausea, vomiting and/or constipation. Sleepiness, dizziness, dry mouth, confusion, depression or itching. Physical dependence, meaning you have withdrawal symptoms when a medication is stopped, can develop within a few days. KNOW YOUR RESPONSIBILITIES It is important to know exactly how much and how often to take the opioid pain medications you are prescribed. Never take opioids in higher amounts or more often than prescribed. Do not combine opioids with alcohol or other drugs that cause drowsiness, such as benzodiazepines, also known as benzos, including diazepam and alprazolam, muscle relaxants or sleep aids. Never sell or share prescription opioids. This is illegal. Store opioids in a secure place and out of reach of others (including children, family, friends and visitors). The last page of this document has been signed and retained as a CHART COPY. Signatures Patient Education Materials Deep Vein Thrombosis Pulmonary Embolism Medication Leaflets ondansetron (oral), apixaban My discharge plan and instructions have been reviewed and explained to me and IBRIE MARGRET A understand my current condition and have read and understand these discharge instructions. I have received a written copy of the plan/instructions. If I have questions, I am aware that I should contactmy doctor. 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 Pulmonary emboli Acute, new onset, unknown etiology *Patient administered Lovenox 100 mg sc in ED. *Will start Eliquis 10 mg PO BID x 7 days and then 5 mg PO BID. Will defer to PCP to decide whether any further testing is needed. *Obtain echocardiogram to rule out right heart strain. *Check venous duplex ultrasound to rule out DVT - positive in left lower extremity. *Repeat CBC in the am. 2. KOLBY (acute kidney injury) Acute, new onset *Unknown baseline creatinine, GFR. *On arrival to ED, creatinine 1.82 - down to 1.43 this am. *Continue LR @ 50cc/hr. *Hold Losartan until renal function improves. *Repeat BMP in the am. 3. Dehydration Acute, new onset, secondary to viral illness *Continue LR @ 50cc/hr. *Repeat BMP in the am. 4. Fall Acute, secondary to weakness *Consult placed to PT and OT to evaluate and treat. *business services coordinator working on discharge planning. 5. Weakness or fatigue Acute, secondary to viral illness *Plan as above. 6. Hypertension Chronic, on the soft side overnight *Hold Losartan for now until blood pressures improve. *SBP goal of 140 or less. DVT prophylaxis with Eliquis. Code status: Full Code. Labs, diagnostic test and progress notes reviewed as noted in HPI. Plan of care discussed with patient. All questions answered. Patient verbalizes understanding and is agreeable with plan of care. This case was discussed with collaborating physician, Dr. Kimberly Myers. [facility] 04-11-2023 Note Date of Service 06/04/2022 Chief Complaint Patient states she saw family doctor last Friday, went home and later that day had diarrhea and vomiting. Vomiting lasted a few days but she continues to have diarrhea, no appetite, increased weakness and felt dizzy upon standing and had an assisted fall History of Present Illness Patient is a 76-year-old female, who follows with Dr. Cole Cardona with a past medical history significant for hyperlipidemia, hypertension, and depression, presented to [facility] emergency department with the chief complaint of dehydration. Patient states that she was fine up until about a week ago when she developed nausea, vomiting and diarrhea. Her is in a memory unitand multiple residents there have had the same symptoms. She states in the last day or so she has finally been getting over those symptoms but has been feeling very weak. Yesterday, she slid to her buttocks between the dresser and bed and was unable to get up. She had to call her daughter and grandson to help her get up. They felt that she should be evaluated in the ED. She currently denies any fever, chills, cough, shortness of breath, chest pain, abdominal pain, nausea or dysuria. In the emergency department, chest x-ray revealed no acute process. CTA of the chest revealed segmental and subsegmental right lower lobe pulmonary emboli. No evidence of right heart strain. CBC was unremarkable. BMP significant for glucose 188, sodium 133, potassium 3.2, BUN 23, and creatinine 1.82. Troponin negative. Lactic acid 1.7. Lipase 41. D-dimer elevated 523. Patient was administered 2 liters of LR and 100 mg Lovenox sc in the ED. She was transferred to telemetry for further evaluationand treatment. We will start Eliquis 10 mg PO BID x 7 days. We will continue LR @ 50cc/hr. We will obtain venous dopplers of bilateral lower extremities. Consult placed to PT and OT to evaluate and treat. Repeat CBC and BMP in the am. Review of Systems Review of Systems: Reviewed in detail, including general health, HEENT, cardiovascular, respiratory, gastrointestinal, genitourinary, endocrine, musculoskeletal, neurologic, vascular, skin, and psychiatric. All are negative except for those listed in the History of Present Illness. Physical Exam Vitals and Measurements T: 36.9 C (Oral) TMIN: 36.1 C (Temporal Artery) TMAX: 36.9 C (Oral) HR: 88(Monitored) RR: 16 BP: 98/60 SpO2: 94% HT: 157.5 cm WT: 97.1 kg BMI: 39.14 Weight Dosing Weight: 97.1 kg (06/03/22) Dosing Weight: 92.6 kg (06/03/22) General: No acute distress. Patient is alert and appropriate. Skin: No rash. Skin is warm, dry and intact. HEENT: Head is normocephalic, atraumatic. Pupils are equal, round and reactive. Neck: Supple. No lymphadenopathy, thyromegaly. Lungs: Bilaterally clear but diminished without crepitation or wheeze. Unlabored. Heart: Heart is regular rhythm, S1, S2. No murmurs, gallops or rubs. Abdomen: Abdomen is soft, nontender. Bowels sounds present in all quadrants. Extremities: No clubbing, cyanosis, or edema. Peripheral pulses palpable. No calf tenderness. Neurological: Patient is awake and alert to person, place and time. Following simple commands, moving all extremities. Lab Results 06/04 06:25 WBC: 8.6 Hgb: 13.7 Hct: 39.0 Platelet: 226 Neutrophil %: 59.9 Glucose Level: 136 H Sodium Level: 135 L Potassium Level: 3.5 BUN: 25 H Creatinine Lvl (s): 1.43 H 06/03 17:24 WBC: 7.1 Hgb: 15.2 Hct: 44.1 Platelet: 264 Neutrophil %: 69.4 Glucose Level: 188 H Sodium Level: 133 L Potassium Level: 3.2 L BUN: 23 H Creatinine Lvl (s): 1.82 H Imaging Results and Diagnostics XR Chest 1 View Result Date: June 03, 2022 Verified By: ELLIS TRAMMELL DO CLINICAL STATEMENT: IMPRESSION: No acute process. Limited evaluation due to external artifact. CT Angiography Chest w/ Contrast Result Date: June 03, 2022 Verified By: ELLIS TRAMMELL DO CLINICAL STATEMENT: IMPRESSION: Segmental and subsegmental right lower lobe pulmonary emboli. No evidence of right heart strain. Results called by Dr. Kerri Samuel to Dr. Kyree Dawson at 21:12. I have personally reviewed the images of this examination and agree with the resident's findings and interpretation. Assessment/Plan 1. Pulmonary emboli Acute, new onset, unknown etiology *Patient administered Lovenox 100 mg sc in ED. *Will start Eliquis 10 mg PO BID x 7 days and then 5 mg PO BID. Will defer to PCP to decide whetherany further testing is needed. *Obtain echocardiogram to rule out right heart strain. *Check venous duplex ultrasound to rule out DVT - positive in left lower extremity. *Repeat CBC in the am. 2. KOLBY (acute kidney injury) Acute, new onset *Unknown baseline creatinine, GFR. *On arrival to ED, creatinine 1.82 - down to 1.43 this am. *Continue LR @ 50cc/hr. *Hold Losartan until renal function improves. *Repeat BMP in the am. 3. Dehydration Acute, new onset, secondary to viral illness *Continue LR @ 50cc/hr. *Repeat BMP in the am. 4. Fall Acute, secondary to weakness *Consult placed to PT and OT to evaluate and treat. *business services coordinator working on discharge planning. 5. Weakness or fatigue Acute, secondary to viral illness *Plan as above. 6. Hypertension Chronic, on the soft side overnight *Hold Losartan for now until blood pressures improve. *SBP goal of 140 or less. DVT prophylaxis with Eliquis. Code status: Full Code. Labs, diagnostic test and progress notes reviewed as noted in HPI. Plan of care discussed with patient. All questions answered. Patient verbalizes understanding and is agreeable with plan of care. This case was discussed with collaborating physician, Dr. Kimberly Myers. Problem List/Past Medical History Ongoing No qualifying data Historical No qualifying data Procedure/Surgical History Tonsillectomy: 1966 Knee replacement Hernia Medications Home Medications (7) Active aspirin 81 mg oral tablet, chewable 81 mg = 1 tab(s), Chewed, qDay atorvastatin 40 mg oral tablet 40 mg = 1 tab(s), Oral, qDay CeleBREX 200 mg oral capsule 200 mg = 1 cap(s), Oral, qDay losartan 50 mg oral tablet 50 mg = 1 tab(s), Oral, qDay meclizine 25 mg oral tablet 25 mg = 1 tab(s), Oral, qDay venlafaxine 37.5 mg oral tablet 37.5 mg = 1 tab(s), Oral, qDay Vitamin D3 10 mcg = 1 tab(s), Oral, Daily Allergies predniSONE Social History Alcohol Use: Never., 06/03/2022 Home/Environment Domestic Concerns: None. Living situation: Home/Independent. Lives In: Multilevel home, 1st floor bedroom, 1st floor bathroom, 1st floor laundry., 06/03/2022 Nutrition/Health Type of diet: Regular. Appetite Good., 06/03/2022 Substance Abuse Use: Never., 06/03/2022 Tobacco Nicotine Use: Never (less than 100 in lifetime)., 06/03/2022 Family History Diabetes: Mother, Brother and Daughter. Heart disease: Father, Brother and Daughter. Immunizations SARS-CoV-2 (COVID-19) mRNA-1273 vaccine: 0.25 unknown unit (07/03/21) SARS-CoV-2 (COVID-19) mRNA-1273 vaccine: 0.25 unknown unit (12/15/20) SARS-CoV-2 (COVID-19) mRNA-1273 vaccine: 0.5 unknown unit (05/03/20) SARS-CoV-2 (COVID-19) mRNA-1273 vaccine: 0.5 unknown unit (04/06/20) Code Status Code Status - Ordered -- 06/03/22 21:34:00 EDT, Full Code, Constant Order Digitally Signed by AMRIT GOODWIN on 06/04/2022 12:26 PM [facility]04-10-2023 Note ORIGINAL EXAMINATION: CTA OF THE CHEST 06/03/2022 8:58 pm TECHNIQUE: CTA of the chest was performed after the administration of intravenous contrast. Multiplanar reformatted images are provided for review. MIP images are provided for review. Automated exposure control, iterative reconstruction, and/or weight based adjustment of the mA/kV was utilized to reduce the radiation dose to as low as reasonably achievable. COMPARISON: None. HISTORY: ORDERING SYSTEM PROVIDED HISTORY: Reason for Exam: chest pain; suspect PE FINDINGS: Pulmonary Arteries: There is adequate opacification of the pulmonary arteries. Segmental and subsegmental thrombus is seen within the pulmonary arteries supplying the right lower lobe. No evidence of right heart strain. Mediastinum: The heart is not enlarged. No pericardial effusion. Coronary artery calcific atherosclerosis. The great vessels are normal in course and caliber. Unremarkable esophagus. Bilateral thyroid nodules. The largest is within the right thyroid lobe, measuring up to 1.1 cm. This is not meet ACR criteria for recommended follow-up. No mediastinal or hilar adenopathy. Lungs/pleura: The central airways are patent. No focal consolidation, pleural effusion, or pneumothorax. Upper Abdomen: No acute process within the included images of the upper abdomen. 1.7 cm simple cyst within the superior pole of the right kidney. Soft Tissues/Bones: No acute bone or soft tissue abnormality. Degenerative changes within the spine. IMPRESSION: Segmental and subsegmental right lower lobe pulmonary emboli. No evidence of right heart strain. Results called by Dr. Kerri Samuel to Dr. Kyree Dawson at 21:12. I have personally reviewed the images of this examination and agree with the resident's findings and interpretation. Interpreted by: Ellis Trammell DO Preliminary Report By: Kerri Samuel Electronically signed By Ellis Trammell DO Dictated Date: 06/03/2022 9:02:51 PM Prelim Date: 06/03/2022 9:12:33 PM Sign Date: 06/03/2022 10:24:00 PM Ordering Provider: KYREE DAWSON [facility]04-10-2023 Note ORIGINAL EXAMINATION: CTA OF THE CHEST 06/03/2022 8:58 pm TECHNIQUE: CTA of the chest was performed after the administration of intravenous contrast. Multiplanar reformatted images are provided for review. MIP images are provided for review. Automated exposure control, iterative reconstruction, and/or weight based adjustment of the mA/kV was utilized to reduce the radiation dose to as low as reasonably achievable. COMPARISON: None. HISTORY: ORDERING SYSTEM PROVIDED HISTORY: Reason for Exam: chest pain; suspect PE FINDINGS: Pulmonary Arteries: There is adequate opacification of the pulmonary arteries. Segmental and subsegmental thrombus is seen within the pulmonary arteries supplying the right lower lobe. No evidence of right heart strain. Mediastinum: The heart is not enlarged. No pericardial effusion. Coronary artery calcific atherosclerosis. The great vessels are normal in course and caliber. Unremarkable esophagus. Bilateral thyroid nodules. The largest is within the right thyroid lobe, measuring up to 1.1 cm. This is not meet ACR criteria for recommended follow-up. No mediastinal or hilar adenopathy. Lungs/pleura: The central airways are patent. No focal consolidation, pleural effusion, or pneumothorax. Upper Abdomen: No acute process within the included images of the upper abdomen. 1.7 cm simple cyst within the superior pole of the right kidney. Soft Tissues/Bones: No acute bone or soft tissue abnormality. Degenerative changes within the spine. IMPRESSION: Segmental and subsegmental right lower lobe pulmonary emboli. No evidence of right heart strain. Results called by Dr. Kerri Samuel to Dr. Kyree Dawson at 21:12. I have personally reviewed the images of this examination and agree with the resident's findings and interpretation. Interpreted by: Ellis Trammell DO Preliminary Report By: Kerri Samuel Electronically signed By Ellis Trammell DO Dictated Date: 06/03/2022 9:02:51 PM Prelim Date: 06/03/2022 9:12:33 PM Sign Date: 06/03/2022 10:24:00 PM Ordering Provider: [place] [id number] Note ORIGINAL EXAMINATION: ONE XRAY VIEW OF THE CHEST 06/03/2022 7:46 pm COMPARISON: None. HISTORY: ORDERING SYSTEM PROVIDED HISTORY: Reason for Exam: pain FINDINGS: There are extensive artifactual densities overlying the right hemithorax, possibly related to clothing or sheets. As visualized: The lungs are without acute focal process. There is no effusion or pneumothorax. The cardiomediastinal silhouette is without acute process. The osseous structures are without acute process. IMPRESSION: No acute process. Limited evaluation due to external artifact. Interpreted by: Ellis Trammell DO Preliminary Report By: Ellis Trammell DO Electronically signed By Ellis Trammell DO Dictated Date: 06/03/2022 8:03:40 PM Prelim Date: 06/03/2022 8:06:19 PM Sign Date: 06/03/2022 8:06:19 PM Ordering Provider: KYREE DAWSON [place] [id number] Note ORIGINAL EXAMINATION: ONE XRAY VIEW OF THE CHEST 06/03/2022 7:46 pm COMPARISON: None. HISTORY: ORDERING SYSTEM PROVIDED HISTORY: Reason for Exam: pain FINDINGS: There are extensive artifactual densities overlying the right hemithorax, possibly related to clothing or sheets. As visualized: The lungs are without acute focal process. There is no effusion or pneumothorax. The cardiomediastinal silhouette is without acute process. The osseous structures are without acute process. IMPRESSION: No acute process. Limited evaluation due to external artifact. Interpreted by: Ellis Trammell DO Preliminary Report By: Ellis Trammell DO Electronically signed By Ellis Trammell DO Dictated Date: 06/03/2022 8:03:40 PM Prelim Date: 06/03/2022 8:06:19 PM Sign Date: 06/03/2022 8:06:19 PM Ordering Provider: [facility] summary Author Curt Henderson [facility] Note Date/Time June 17, 2024 12: 02pm [facility] Medical Records Department [address] [place] [id number] Discharge Summary 06/17/24 1201 MR#: [id number] Acct: [id number] Name: SCOTT TALBERT Rep #:[id number] : 1945 78 From: Curt Ann PCP: Dr. Cole Cardona DO Status:[facility] Location: [place] [address] Providers Date of Admission: 06/14/24 Date of Discharge: 06/17/24 Primary Care Physician: Dr. Cole Cardona DO Consultations 06/14/24 10:42 Consult: Gastroenterology Routine Consulting Provider: [facility] Reason for Consult: right sided colon/cecum suspected mass//thickening EMERGENT Consult: No MD Notified: Yes Date Notified: 06/14/24 Time Notified: 10:42 Method of Notification: Text Reason For Visit: WORSENING WEAKNESS Diagnosis Discharge Diagnosis (1) Generalized weakness: Status: Acute Code(s): R53.1 - Weakness Plan Patient is a 78-year-old female who presented to [facility] ED on 06/13/2024 with worsening weakness over past 4 to 5 days. She is having difficulty in getting up and ambulate. She was given antibiotic [facility] for presumed UTI but she did not get better. 1. Acute on chronic debility ? Admit under observation status to [facility]. PT/OT/case management consulted. On exam patient with good muscle strength of hip and knee joints. Has mild gaitimbalance sometimes. Probably from chronic disease including osteoarthritis with suspected underlying malignancy 06/16: Probably patient be discharged to TCU tomorrow. 06/17: As per clinical case manager, she did not meet criteria for discharge to SNF therefore being discharged home with Augmentin. 2. Concern for postobstructive pneumonia, ? CTA chest showed dense left lower lobe consolidation with concern for possiblepostobstructive pneumonia; see HPI for further details on this. UA mildly infectious appearing. Urine culture from 06/11 growing only 11 K -25,000 gram- negative rods therefore UTI ruled out. she has been treated with Keflex since for UTI without much improvement. Patient did not have IV and vancomycin. Air Brake Man consulted. 06/15: Patient stated [facility] but she states he needs to go to custodial to get her to go home therefore could not be discharged. 06/17: Patient 4 days of IV antibiotics here. Discharged on 5 more days of Augmentin and doxycycline. Advised to follow-up with the ld teacher as mentioned above in 2 weeks. 3. Concern for malignancy: Previous CT scan abdomen shows focal irregular wall thickening of cecum and ascending colon with luminal narrowing suggestive of neoplasm. There is similar finding in December 2020 but at that time patientrefused for colonoscopy. Patient continues to have normal stools and reports no right-sided abdominal pain. Other concerning findings include right expansile lytic lesion of right acromion with associated pathologic fracture, mildly enlarged subcarinal and left hilar lymph nodes, L4 vertebral body 1.4 cm sclerotic lesion, and prominentretroperitoneal and right lower quadrant lymph nodes. GI consulted 06/15: Patient refused for colonoscopy. She was upset when she was started on clear liquid yesterday. 4. Persistent sinus tachycardia ? Sinus tachycardia to the 120s to low 130s in the ED. improved with IV fluid 5. Left lower lobe consolidative mass ? See HPI for further details. In short, was found to have consolidative mass in December and recently had bronchoscopy with biopsy done in early May with biopsy results negative for malignancy. Chronic medical conditions: ? Class I obesity: BMI 33 on admit. Complicates hospital course, care and prognosis. ? Hypertension: Continue home amlodipine. ? Hyperlipidemia: Continue home statin. ? Anxiety/depression: Continue home venlafaxine and chlordiazepoxide twice dailyas needed. ? 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 ? Recent GI bleed: Had GI bleed in December that was suspected secondary to supratherapeutic INR while patient was on warfarin. Patient refused EGD or colonoscopy. GI bleed resolved with improvement in INR and hemoglobin has sinceimproved. DVT prophylaxis: Not indicated, on Eliquis CODE STATUS: DNR CCA, DNI Discharge medication reconciliation done. Discharge follow-up instructions completed. Discharge process discussed with the patient and all questions wereanswered to patient's satisfaction. Follow with PCP in 1 to 2 weeks Total time spent, exact 35 minutes on discharge meds reconciliation, examination, coordination of care with nurses and ancillary staff, review of imaging and blood test and discussion with the patient on follow-up instructions. Medications at Discharge Home Medications blood pressure monitor #1 ea 06/02/23 venlafaxine 37.5 mg tablet 37.5 mg PO QDAY #90 tabs 07/11/23 atorvastatin 40 mg tablet See Rx Instructions .Route .COMPLEX #90 tabs 08/19/23 chlordiazepoxide HCl 5 mg capsule 10 mg (2 x 5 mg) PO Q12H PRN anxiety #60 caps 12/24/23 apixaban 2.5 mg tablet (Eliquis) 2.5 mg PO BID #180 tabs 02/04/24 amlodipine 5 mg tablet 5 mg PO DAILY #90 tabs 03/23/24 betamethasone dipropionate 0.05 % topical cream 1 applic topical DAILY PRN rash #45 grams 03/23/24 ferrous sulfate 325 mg (65 mg iron) tablet (Feosol) 650 mg PO QDAY 03/23/24 handicap placard #1 ea 05/26/24 cephalexin 250 mg capsule 250 mg PO 4X/DAY 06/11/24 meclizine 25 mg tablet 25 mg PO BID PRN dizziness 06/12/24 amoxicillin 875 mg-potassium clavulanate 125 mg tablet 1 tab PO BID 5 days #10 tabs 06/17/24 doxycycline monohydrate 100 mg tablet 100 mg PO BID 5 days #10 tabs 06/17/24 Physical Exam Narrative Seen and examined. No acute issues. Denies fever or chills Physical exam General: Alert, Oriented x3, Cooperative. BMI 33.0 kg/m? HEENT: Atraumatic, PERRLA, EOMI, Normocephalic Oral: No Gingival or Mucosal Lesions/ Ulcerations Neck: Supple, No JVD, Negative Carotid Bruits Chest wall/Lungs: Air entry diminished, more in left lung base. No crepitation/rhonchi Cardiovascular: Regular rate, Regular Rhythm, Normal S1, Normal S2, No M/G/R Abdomen: Bowel Sounds Present, Soft, Non Tender, Non-Distended : No dysuria. No renal angle tenderness. No suprapubic tenderness. Extremities: No edema, Capillary Refill Less than 3 Seconds Skin: No rashes, No breakdown Musculoskeletal: No Tenderness to Palpation of Joints or Extremities. Muscle strength 5/5 at knees and hip joints. Neurological: Cranial nerves II-XII grossly intact, DTR 2+/4. No acute focal neurological deficit. Psych/Mental Status: Normal Affect, Appropriate. Weight / BMI Weight Weight: 180 lb 5.41 oz Body Mass Index (BMI) 33.0 ABG / Lab / Microbiology Data 06/14/24 07:05 06/17/24 05:16 Laboratory: Laboratory Results - last 24 hr 06/17/24 02:29: Creatinine 0.54 L, Estim Creat Clear Calc 56.51, Est GFR (MDRD) Non-Af 94, Vancomycin Trough 15.7 H 06/17/24 05:16: Sodium 140, Potassium 3.2 L, Chloride 102, Carbon Dioxide 27.3, Anion Gap 10, BUN 7, Creatinine 0.49 L, Estim Creat Clear Calc 56.51, Est GFR (MDRD) Non-Af 96, BUN/Creatinine Ratio 14.2, Glucose 123 H, Calcium 8.8 D/C Instructions Discharge Diet: No restrictions Weight Bearing Status: Weight bearing as tolerated Call your doctor if you observe: Fever of 101 or Higher, Coldness, Increased Pain, Numbness or Tingling, Change in Color, Inability to urinate, Inability to have a bowel movement, Shortness of breath, Dizziness, Fainting spells, Swellingin the ankles, Chest pain, Prolonged hiccupping, Increased palpitations (irregular heartbeat) and Calf discomfort DC O2, CPAP, BIPAP Needs Home O2 Discharge instructions: No When: IN 2 WEEKS Meaningful Use Info Meaningful Use Meaningful Use Diagnoses (Choose all that apply): None applicable Ischemic Stroke Statin Dosing Therapy Reference: STATIN DOSE THERAPY REFERENCE: * Patients > 75 years receive moderate or high dose statin therapy. * Patients 75 years or YOUNGER should receive HIGH intensity statin dose unless contraindicated. You will be required to document reason for non-treatment if statin daily dose does not meet guidelines. HIGH DOSE STATIN THERAPY DAILY Atorvastatin > than or = to 40 mg Rosuvastatin > than or = to 20 mg Amlodipine + Atorvastatin > than or = to 2.5/40 mg Ezetimibe + Simvastatin 10/80 mg Simvastatin 80mg Discharge Plan Admission Admit Date/Time: 06/14/24 11:35 Primary Reason for Your Visit: Generalized weakness Attending Provider: Curt Henderson Primary Care Provider: Cole Cardona Consulting Providers: Art Rivas Additional Instructions / Restrictions: Follow-up with the ld teacher in [facility] Dr. Newman Discharge Orders/Prescriptions Prescriptions: New amoxicillin-pot clavulanate 875-125 mg tablet 1 tab PO BID 5 Days Qty: 10 0RF doxycycline monohydrate 100 mg tablet 100 mg PO BID 5 Days Qty: 10 0RF Continued (DME) blood pressure monitor Kit See Rx Instructions .ROUTE .MEDSUPPLY Qty: 1 0RF Rx Instructions: As directed atorvastatin 40 mg tablet See Rx Instructions .ROUTE .COMPLEX Qty: 90 2RF Dose Instruction: TAKE 1 TABLET DAILY Rx Instructions: TAKE 1 TABLET DAILY Eliquis 2.5 mg tablet 2.5 mg PO BID Qty: 180 1RF ferrous sulfate [Feosol] 325 mg (65 mg iron) tablet 650 mg PO QDAY amlodipine 5 mg tablet 5 mg PO DAILY Qty: 90 1RF betamethasone dipropionate 0.05 % cream 1 applic TOPICAL DAILY PRN (Reason: rash) Qty: 45 1RF cephalexin 250 mg capsule 250 mg PO 4X/DAY meclizine 25 mg tablet 25 mg PO BID PRN (Reason: dizziness) venlafaxine 37.5 mg tablet 37.5 mg PO QDAY Qty: 90 1RF chlordiazepoxide HCl 5 mg capsule 10 mg PO Q12H PRN (Reason: anxiety) Qty: 60 0RF (DME) handicap placard See Rx Instructions .Route .MEDSUPPLY Qty: 1 0RF Rx Instructions: Duration 5 years, difficulty with ambualation. Referrals / Follow Up: Cole Cardona DO [Primary Care Provider] - Within 2 Weeks Disposition Disposition (needs filled in before D/C Order can be placed): Home Health Service Charges/Coding Visit Charges Inpatient E&M: 85444 Disch Hosp >30min 06/17/24 1202 <Electronically signed by Curt Henderson MD> Cosigner Signature (if applicable): CC: Dr. Cole Cardona DO; Dr. 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 Diabetes type 2, controlled chronic High cholesterol chronic Hypertension [facility] Work Phone: Evaluation note* Diagnosis Onset Date Resolution Status 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 Diabetes type 2, controlled chronic High cholesterol chronic Hypertension chronic Pulmonary emboli acute Balance problem acute Pulmonary emboli acute [facility] Work Phone: Evaluation noteNo assessment information available [facility] Work Phone: Evaluation note* Diagnosis Onset Date Resolution Status Pulmonary emboli acute Diabetes type 2, controlled chronic High cholesterol chronic High triglycerides chronic Hypertension [facility] Work Phone: Evaluation note* Diagnosis Onset Date Resolution Status Pulmonary emboli acute Diabetes type 2, controlled chronic High cholesterol chronic High triglycerides chronic Hypertension chronic Pulmonary emboli acute URI (upper respiratory infection) acute [facility] Work Phone: Evaluation note* Diagnosis [facility]- [facility] Onset Date Resolution Status Pulmonary emboli acute URI (upper respiratory infection) acute [facility] Work Phone: Evaluation note* Diagnosis Onset Date Resolution Status Pulmonary emboli acute URI (upper respiratory infection) acute Chronic cough chronic Hypertension chronic [facility] Work Phone: Evaluation note* Diagnosis [facility] N[facility] No data available for this section [facility] Discharge instructions No data available for this section [facility] Discharge instructions Additional Instructions Please keep yourself well-hydrated but if symptoms persist or worsen return to the ER for repeat evaluation. While urine culture is still pending please continue the antibiotics given to you from the outside hospital.[facility] Work Phone: Hospital Discharge instructions Additional Instructions Discharge home 07/20/2024, then plan to move into [facility] 07/21/2024; [facility] PT/OT.[facility] Work Phone: Hospital Discharge instructionsAmbulatory Orders* Hematology & Oncology Location: None [facility] Work Phone: Progress note No data available for this section [facility] Reason for referral (narrative)No reason for referral information availableWSt. [facility] Work Phone: Chief Complaint and Reason for Visit Chief Complaint SKIN TAG REMOVED 6 M FU Reason for Visit Skin tags, multiple acquired Labyrinthitis Diabetes type 2, controlled Hypertension Chief Complaint 1 Y FU Reason for Visit Situational mixed an xiety and depressive disorder Diabetes type 2, controlled High cholesterol Hypertension Chief Complaint 1 Y FU [facility] FU Leg issues INT LABS Reason for Visit Situational mixed an xiety and depressive disorder Diabetes type 2, controlled High cholesterol Hypertension Pulmonary emboli Balance problem Pulmonary emboli Chief Complaint INT LABS S/O INR S/O INR S/O INR S/O INR Chief Complaint S/O INR S/O INR S/O INR S/O INR Chief Complaint S/O INR S/O INR S/O INR S/O INR 6 M FU Reason for Visit Pulmonary emboli Diabetes type 2, controlled High cholesterol High triglycerides Hypertension Chief Complaint S/O INR 6 M FU S/O INR S/O INR COLD SYMPTOMS Reason for Visit Pulmonary emboli Diabetes type 2, controlled High cholesterol High triglycerides Hypertension Pulmonary emboli URI (upper respiratory infection) Chief Complaint 6 M FU S/O INR S/O INR COLD SYMPTOMS [id number] Reason for Visit Pulmonary emboli Diabetes type 2, controlled High cholesterol High triglycerides Hypertension Pulmonary emboli URI (upper respiratory infection) Chief Complaint S/O INR S/O INR COLD SYMPTOMS [id number] Reason for Visit Pulmonary emboli URI (upper respiratory infection) Chief Complaint S/O INR COLD SYMPTOMS [id number] acute - ongoing cough bp check CHRONIC COUGH Reason for Visit Pulmonary emboli URI (upper respiratory infection) Chronic cough Hypertension Chief Complaint Admit Date 3 M FU March 02, 2024 1: 09pm CONCERNS March 23, 2024 2 :41pm 2 M FU May 18, 2024 2:2 9pm flank pain June 11, 2024 8:4 8pm Reason for Visit Admit Date Weight loss, unintentional March 02, 2024 1:09pm Chronic cough March 02, 2024 1: 09pm Diabetes type 2, controlled March 02, 2024 1:09pm Weight loss, unintentional March 23, 2024 2:41pm GI (gastrointestinal bleed) February 2:41pm Refractory chronic cough March 23, 025 2:41pm Diabetes type 2, controlled May 18, 2024 2:29pm Hypertension May 18, 2024 2:2 9pm GI (gastrointestinal bleed) May 18, 2024 2:29pm Refractory chronic cough May 18 2:29pm Chief Complaint Admit Date 3 M FU March 02, 2024 1: 09pm CONCERNS March 23, 2024 2 :41pm 2 M FU May 18, 2024 2:2 9pm flank pain June 11, 2024 8:4 8pm WORSENING WEAKNESS June 13, 2024 10: 14pm Chief Complaint Admit Date 3 M FU March 02, 2024 1: 09pm CONCERNS March 23, 2024 2 :41pm 2 M FU May 18, 2024 2:2 9pm flank pain June 11, 2024 8:4 8pm WORSENING WEAKNESS June 13, 2024 10: 14pm WORSENING WEAKNESS June 14, 2024 9:3 3am WORSENING WEAKNESS June 14, 2024 11: 35am WORSENING WEAKNESS June 14, 2024 5:4 4pm WORSENING WEAKNESS June 15, 2024 3:2 0pm WORSENING WEAKNESS June 16, 2024 4:0 5pm WORSENING WEAKNESS June 17, 2024 12: 01pm Reason for Visit Admit Date Weight loss, unintentional March 02, 2024 1:09pm Chronic cough March 02, 2024 1: 09pm Diabetes type 2, controlled March 02, 2024 1:09pm Weight loss, unintentional March 23, 2024 2:41pm GI (gastrointestinal bleed) February 2:41pm Refractory chronic cough March 23, 2 025 2:41pm Diabetes type 2, controlled May 18, 2024 2:29pm Hypertension May 18, 2024 2:2 9pm GI (gastrointestinal bleed) May 18, 2024 2:29pm Refractory chronic cough May 18 2:29pm Generalized weakness June 14, 2024 11 :35am Chief Complaint Admit Date CONCERNS March 23, 2024 2 :41pm 2 M FU May 18, 2024 2:2 9pm flank pain June 11, 2024 8:4 8pm WORSENING WEAKNESS June 13, 2024 10: 14pm WORSENING WEAKNESS June 14, 2024 9:3 3am WORSENING WEAKNESS June 14, 2024 11: 35am WORSENING WEAKNESS June 14, 2024 5:4 4pm WORSENING WEAKNESS June 15, 2024 3:2 0pm WORSENING WEAKNESS June 16, 2024 4:0 5pm WORSENING WEAKNESS June 17, 2024 12: 01pm [facility] fu June 23, 2024 2:3 5pm [place] June 30, 2024 6:41pm Reason for Visit Admit Date Weight loss, unintentional March 23, 2024 2:41pm GI (gastrointestinal bleed) February 2:41pm Refractory chronic cough March 23, 2 025 2:41pm Diabetes type 2, controlled May 18, 2024 2:29pm Hypertension May 18, 2024 2:2 9pm GI (gastrointestinal bleed) May 18, 2024 2:29pm Refractory chronic cough May 18 2:29pm Generalized weakness June 14, 2024 11 :35am Malignant cancer cells June 23, 2024 2:35pm 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 Ap ril 2024 2:35pm Anxiety June 30, 2024 6:41pm BPPV (benign paroxysmal positional verti go) June 30, 2024 6:41pm Debility June 30, 2024 6:41pm DVT (deep venous thrombosis) June 30 6:41pm Essential (primary) hypertension June 6:41pm Hyperlipidemia, unspecified June 30 6:41pm Iron deficiency anemia June 30, 2024 6:4 1pm Major depression June 30, 2024 6:41pm 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 Ma y 2024 6:41pm Rash June 30, 2024 6:41pm Chief Complaint Admit Date 2 M FU May 18, 2024 2:2 9pm flank pain June 11, 2024 8:4 8pm WORSENING WEAKNESS June 13, 2024 10: 14pm WORSENING WEAKNESS June 14, 2024 9:3 3am WORSENING WEAKNESS June 14, 2024 11: 35am WORSENING WEAKNESS June 14, 2024 5:4 4pm WORSENING WEAKNESS June 15, 2024 3:2 0pm WORSENING WEAKNESS June 16, 2024 4:0 5pm WORSENING WEAKNESS June 17, 2024 12: 01pm [facility] fu June 23, 2024 2:3 5pm [place] June 30, 2024 6:41pm [facility] fu July 28, 2024 2:26p m Reason for Visit Admit Date Diabetes type 2, controlled May 18, 2024 2:29pm Hypertension May 18, 2024 2:2 9pm GI (gastrointestinal bleed) May 18, 2024 2:29pm Refractory chronic cough May 18 2:29pm Generalized weakness June 14, 2024 11 :35am Malignant cancer cells June 23, 2024 2:35pm 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 Ap ril 2024 2:35pm Anxiety June 30, 2024 6:41pm BPPV (benign paroxysmal positional verti go) June 30, 2024 6:41pm Debility June 30, 2024 6:41pm DVT (deep venous thrombosis) June 30 6:41pm Essential (primary) hypertension June 6:41pm Hyperlipidemia, unspecified June 30 6:41pm Iron deficiency anemia June 30, 2024 6:4 1pm Major depression June 30, 2024 6:41pm 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 Ma y 2024 6:41pm Rash June 30, 2024 6:41pm 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 Ju ne 2024 2:26pm Chief Complaint Admit Date 2 M FU May 18, 2024 2:2 9pm flank pain June 11, 2024 8:4 8pm WORSENING WEAKNESS June 13, 2024 10: 14pm WORSENING WEAKNESS June 14, 2024 9:3 3am WORSENING WEAKNESS June 14, 2024 11: 35am WORSENING WEAKNESS June 14, 2024 5:4 4pm WORSENING WEAKNESS June 15, 2024 3:2 0pm WORSENING WEAKNESS June 16, 2024 4:0 5pm WORSENING WEAKNESS June 17, 2024 12: 01pm [facility] fu June 23, 2024 2:3 5pm [place] June 30, 2024 6:41pm w[facility] fu July 28, 2024 2:26p m BONE METS UNKNOWN PRIMARY August 16 10:12am Reason for Visit Admit Date Diabetes type 2, controlled May 18, 2024 2:29pm Hypertension May 18, 2024 2:2 9pm GI (gastrointestinal bleed) May 18, 2024 2:29pm Refractory chronic cough May 18 2:29pm Generalized weakness June 14, 2024 11 :35am Malignant cancer cells June 23, 2024 2:35pm 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 Ap ril 2024 2:35pm Anxiety June 30, 2024 6:41pm BPPV (benign paroxysmal positional verti go) June 30, 2024 6:41pm Debility June 30, 2024 6:41pm DVT (deep venous thrombosis) June 30 6:41pm Essential (primary) hypertension June 6:41pm Hyperlipidemia, unspecified June 30 6:41pm Iron deficiency anemia June 30, 2024 6:4 1pm Major depression June 30, 2024 6:41pm 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 Ma y 2024 6:41pm Rash June 30, 2024 6:41pm 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 Ju ne 2024 2:26pm Disseminated cancer August 16, 2024 10:1 2am Chief Complaint Admit Date 2 M FU May 18, 2024 2:2 9pm flank pain June 11, 2024 8:4 8pm WORSENING WEAKNESS June 13, 2024 10: 14pm WORSENING WEAKNESS June 14, 2024 9:3 3am WORSENING WEAKNESS June 14, 2024 11: 35am WORSENING WEAKNESS June 14, 2024 5:4 4pm WORSENING WEAKNESS June 15, 2024 3:2 0pm WORSENING WEAKNESS June 16, 2024 4:0 5pm WORSENING WEAKNESS June 17, 2024 12: 01pm [facility] fu June 23, 2024 2:3 5pm [place] June 30, 2024 6:41pm wc fu July 28, 2024 2:26p m BONE METS UNKNOWN PRIMARY August 16 10:12am CONSULT - BONE METS August 24, 2024 2:10p m Reason for Visit Admit Date Diabetes type 2, controlled May 18, 2024 2:29pm Hypertension May 18, 2024 2:2 9pm GI (gastrointestinal bleed) May 18, 2024 2:29pm Refractory chronic cough May 18 2:29pm Generalized weakness June 14, 2024 11 :35am Malignant cancer cells June 23, 2024 2:35pm 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 Ap ril 2024 2:35pm Anxiety June 30, 2024 6:41pm BPPV (benign paroxysmal positional verti go) June 30, 2024 6:41pm Debility June 30, 2024 6:41pm DVT (deep venous thrombosis) June 30 6:41pm Essential (primary) hypertension June 6:41pm Hyperlipidemia, unspecified June 30 6:41pm Iron deficiency anemia June 30, 2024 6:4 1pm Major depression June 30, 2024 6:41pm 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 Ma y 2024 6:41pm Rash June 30, 2024 6:41pm 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 Ju ne 2024 2:26pm Disseminated cancer August 16, 2024 10:1 2am 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 Ju ly 2024 2:10pm Chief Complaint Admit Date flank pain June 11, 2024 8:4 8pm WORSENING WEAKNESS June 13, 2024 10: 14pm WORSENING WEAKNESS June 14, 2024 9:3 3am WORSENING WEAKNESS June 14, 2024 11: 35am WORSENING WEAKNESS June 14, 2024 5:4 4pm WORSENING WEAKNESS June 15, 2024 3:2 0pm WORSENING WEAKNESS June 16, 2024 4:0 5pm WORSENING WEAKNESS June 17, 2024 12: 01pm wch fu June 23, 2024 2:3 5pm [place] June 30, 2024 6:41pm wc fu July 28, 2024 2:26p m BONE METS UNKNOWN PRIMARY August 16 10:12am CONSULT - BONE METS August 24, 2024 2:10p m Malignant (primary) neoplasm, unspecifie d September 08, 2024 8:52am [facility] LABS REVIEW PATH September 22, 2024 12 :57pm OTV September 22, 2024 1:22 pm Reason for Visit Admit Date Generalized weakness June 14, 2024 11 :35am Malignant cancer cells June 23, 2024 2:35pm 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 Ap ril 2024 2:35pm Anxiety June 30, 2024 6:41pm BPPV (benign paroxysmal positional verti go) June 30, 2024 6:41pm Debility June 30, 2024 6:41pm DVT (deep venous thrombosis) June 30 6:41pm Essential (primary) hypertension June 6:41pm Hyperlipidemia, unspecified June 30 6:41pm Iron deficiency anemia June 30, 2024 6:4 1pm Major depression June 30, 2024 6:41pm 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 Ma y 2024 6:41pm Rash June 30, 2024 6:41pm 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 Ju ne 2024 2:26pm Disseminated cancer August 16, 2024 10:1 2am 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 Ju ly 2024 2:10pm Chief Complaint Admit Date flank pain June 11, 2024 8:4 8pm WORSENING WEAKNESS June 13, 2024 10: 14pm WORSENING WEAKNESS June 14, 2024 9:3 3am WORSENING WEAKNESS June 14, 2024 11: 35am WORSENING WEAKNESS June 14, 2024 5:4 4pm WORSENING WEAKNESS June 15, 2024 3:2 0pm WORSENING WEAKNESS June 16, 2024 4:0 5pm WORSENING WEAKNESS June 17, 2024 12: 01pm wc fu June 23, 2024 2:3 5pm [place] June 30, 2024 6:41pm wc fu July 28, 2024 2:26p m BONE METS UNKNOWN PRIMARY August 16 10:12am CONSULT - BONE METS August 24, 2024 2:10p m Malignant (primary) neoplasm, unspecifie d September 08, 2024 8:52am [facility] LABS REVIEW PATH September 22, 2024 12 :57pm OTV September 22, 2024 1:22 pm . September 22, 2024 2:15 pm Reason for Visit Admit Date Generalized weakness June 14, 2024 11 :35am Malignant cancer cells June 23, 2024 2:35pm 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 Ap ril 2024 2:35pm Anxiety June 30, 2024 6:41pm BPPV (benign paroxysmal positional verti go) June 30, 2024 6:41pm Debility June 30, 2024 6:41pm DVT (deep venous thrombosis) June 30 6:41pm Essential (primary) hypertension June 6:41pm Hyperlipidemia, unspecified June 30 6:41pm Iron deficiency anemia June 30, 2024 6:4 1pm Major depression June 30, 2024 6:41pm 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 Ma y 2024 6:41pm Rash June 30, 2024 6:41pm 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 Ju ne 2024 2:26pm Disseminated cancer August 16, 2024 10:1 2am 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 Ju ly 2024 2:10pm Disseminated cancer September 22, 2024 12:5 7pm 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 Ju ly 2024 1:22pm Chief Complaint Admit Date flank pain June 11, 2024 8:4 8pm WORSENING WEAKNESS June 13, 2024 10: 14pm WORSENING WEAKNESS June 14, 2024 9:3 3am WORSENING WEAKNESS June 14, 2024 11: 35am WORSENING WEAKNESS June 14, 2024 5:4 4pm WORSENING WEAKNESS June 15, 2024 3:2 0pm WORSENING WEAKNESS June 16, 2024 4:0 5pm WORSENING WEAKNESS June 17, 2024 12: 01pm wc fu June 23, 2024 2:3 5pm FREQUENT FALLS June 30, 2024 6:41pm wc fu July 28, 2024 2:26p m BONE METS UNKNOWN PRIMARY August 16 10:12am CONSULT - BONE METS August 24, 2024 2:10p m Malignant (primary) neoplasm, unspecifie d September 08, 2024 8:52am [facility] September 22, 2024 12 :57pm OTV September 22, 2024 1:22 pm . September 29, 2024 12: 00pm OTV September 29, 2024 12: 56pm Reason for Visit Admit Date Generalized weakness June 14, 2024 11 :35am Malignant cancer cells June 23, 2024 2:35pm 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 Ap ril 2024 2:35pm Anxiety June 30, 2024 6:41pm BPPV (benign paroxysmal positional verti go) June 30, 2024 6:41pm Debility June 30, 2024 6:41pm DVT (deep venous thrombosis) June 30 6:41pm Essential (primary) hypertension June 6:41pm Hyperlipidemia, unspecified June 30 6:41pm Iron deficiency anemia June 30, 2024 6:4 1pm Major depression June 30, 2024 6:41pm 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 Ma y 2024 6:41pm Rash June 30, 2024 6:41pm 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 Ju ne 2024 2:26pm Disseminated cancer August 16, 2024 10:1 2am 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 Ju ly 2024 2:10pm Disseminated cancer September 22, 2024 12:5 7pm 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 Ju ly 2024 1:22pm 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 [place] 2024 12:56pm Family History No Family History Records Found Relationship Condition Age at Onset Recorded Date/T alyx mother Arthritis Unknown brother Myocardial infarction Unknown father Cardiac disease Unknown Summary Purpose Advance Directives No Advanced Directives Records Found Advance Directive Response Recorded Date/ Time Living Will Yes June 11, 2024 9:02pm Do you have a Healthcare Power of Head Of Drama? Yes June 11, 2024 9:02pm Name of Medical Power of Head Of Drama Stevo June 11, 2024 9:02pm Advance Directive Response Recorded Date/ Time Living Will Yes June 11, 2024 9:02pm Do you have a Healthcare Power of Head Of Drama? Yes June 11, 2024 9:02pm Name of Medical Power of Head Of Drama Stevo June 11, 2024 9:02pm Living Will No June 13, 2024 8:58pm Do you have a Healthcare Power of Head Of Drama? No June 13, 2024 8:58pm Advance Directive Response Recorded Date/ Time Living Will Yes June 11, 2024 9:02pm Do you have a Healthcare Power of Head Of Drama? Yes June 11, 2024 9:02pm Name of Medical Power of Head Of Drama Stevo June 11, 2024 9:02pm Living Will Yes June 13, 2024 11:55pm Do you have a Healthcare Power of Head Of Drama? Yes June 13, 2024 11:55pm Name of Medical Power of Head Of Drama Stevo Herrera June 13, 2024 11:55pm Advance Directive Response Recorded Date/ Time Living Will Yes June 11, 2024 9:02pm Do you have a Healthcare Pow er of Head Of Drama? Yes June 11, 2024 9:02pm Name of Medical Power of Head Of Drama Stevo June 11, 2024 9:02pm Living Will Yes June 13, 2024 11:55pm Do you have a Healthcare Pow er of Head Of Drama? Yes June 13, 2024 11:55pm Name of Medical Power of Head Of Drama Stevo Herrera June 13, 2024 11:55pm Do you have a Healthcare Pow er of Head Of Drama? Yes July 01, 2024 11:57am Name of Medical Power of Head Of Drama pt unsure as they have been recently updated July 01, 2024 11:57am Additional Source Comments Goals (unrecognized section and content) Goals may be documented in a n alternate section No data available for this sectionGoals may be documented in an alternate sectionGoals may be documented in an alternate sectionGoals may be documented in an alternate sectionGoals may be documented in an alternate sectionGoals may be documented in an alternate sectionGoals may be documented in an alternate sectionGoals may be documented in an alternate sectionGoals may be documented in an alternate sectionGoals may be documented in an alternate section No data available for this section No data available for this section No data available for this section No data available for this section No data available for this sectionGoals may be documented in an alternate sectionGoals may be documented in an alternate section No data available for this section Patient Care team informatio n (unrecognized section and content) Team Status: Active Member Role Status Dates Dr. Cole Cardona DO Primary Care Provider Active Team Status: Inactive Member Role Status Dates Dr. Cole Cardona DO Primary Care Pr ovider, Attending Provider, Referring Provider Active Team Status: Inactive Member Role Status Dates Dr. Cole Cardona DO Primary Care Provider Active Michelle Zazueta NET MVC DEVELOPER, NET MVC DEVELOPER-C Attending Provider, Referring Prov ider Active Bag Valver Relationship Specialty Start Date End Date Cole Cardona DO [address] [place] [address] PCP - General Family Medicine 03/17/23 Team Status: Inactive Member Role Status Dates Dr. Cole Cardona DO Primary Care Provider, Referr ing Provider Active Odette Clarke NP-C Attending Provider Active Team Status: Inactive Member Role Status Dates Dr. Cole Cardona DO Primary Care Provider, Referr ing Provider Active BIM NURSE Attending Provider Active Team Status: Inactive Member Role Status Dates Dr. Cole Cardona DO Primary Care Provider Active Odette Clarke NET MVC DEVELOPER-C Attending Provider, Referring Pro vider Active Team Status: Inactive Member Role Status Dates Dr. Cole Cardona DO Primary Care Provider Active Start: March 02, 2024 End: March 02, 2024 Dr. Cole Cardona DO Attending Provider Active Start: March 02, 2024 End: March 02, 2024 Dr. Cole Cardona DO Referring Provider Active Start: March 02, 2024 End: March 02, 2024 Team Status: Inactive Member Role Status Dates Dr. Cole Cardona DO Primary Care Provider Active Start: March 23, 2024 End: March 23, 2024 Dr. Cole Cardona DO Attending Provider Active Start: March 23, 2024 End: March 23, 2024 Dr. Cole Cardona DO Referring Provider Active Start: March 23, 2024 End: March 23, 2024 Team Status: Inactive Member Role Status Dates Dr. Cole Cardona DO Primary Care Provider Active Start: May 18, 2024 End: May 18, 2024 Dr. Cole Cardona DO Attending Provider Active Start: May 18, 2024 End: May 18, 2024 Dr. Cloe Cardona , DO Referring Provider Active Start: May 18, 2024 End: May 18, 2024 Team Status: Inactive Member Role Status Dates Dr. Cole Cardona , DO Primary Care Provider Active Start: June 11, 2024 End: June 12, 2024 Dr. Rodriguez Braxton , DO Emergency Provider Active Start: June 11, 2024 End: June 12, 2024 Team Status: Active Member Role Status Dates Dr. Cole Cardona , DO Primary Care Provider Active Start: June 13, 2024 Dr. Rodriguez Braxton , DO Emergency Provider Active Start: June 13, 2024 Dr. Art Rivas , DO Admit Provider Active Start: June 13, 2024 Dr. Art Rivas , DO Attending Provider Active Start: June 13, 2024 Dr. Art Rivas , DO Referring Provider Active Start: June 13, 2024 Team Status: Inactive Member Role Status Dates Dr. Cole Cardona , DO Primary Care Provider Active Start: June 11, 2024 End: June 12, 2024 Dr. Rodriguez Braxton , DO Attending Provider Active Start: June 11, 2024 End: June 12, 2024 Dr. Rodriguez Brxaton , DO Emergency Provider Active Start: June 11, 2024 End: June 12, 2024 Team Status: Active Member Role Status Dates Dr. Cole Cardona , DO Primary Care Provider Active Start: June 13, 2024 Dr. Rodriguez Braxton DO Emergency Provider Active Start: June 13, 2024 Dr. Art Rivas , DO Admit Provider Active Start: June 13, 2024 Dr. Art Rivas , DO Attending Provider Active Start: June 13, 2024 Dr. Art Rivas , DO Referring Provider Active Start: June 13, 2024 Dr. Art Rivas , DO Other Provider Active Start: June 13, 2024 Team Status: Active Member Role Status Dates Dr. Cole Cardona , DO Primary Care Provider Active Start: June 14, 2024 Dr. Rodriguez Braxton , DO Emergency Provider Active Start: June 14, 2024 Dr. Art Rivas , DO Admit Provider Active Start: June 14, 2024 Dr. Art Rivas , DO Referring Provider Active Start: June 14, 2024 Dr. Art Rivsa , DO Other Provider Active Start: June 14, 2024 Dr. Curt Henderson MD Attending Provider Active Start: June 14, 2024 Dr. Curt Henderson MD Other Provider Active Sta rt: June 14, 2024 Team Status: Inactive Member Role Status Dates Dr. Cole Cardona , DO Primary Care Provider Active Start: June 14, 2024 End: June 17, 2024 Dr. Rodriguez Braxton DO Emergency Provider Active Start: June 14, 2024 End: June 17, 2024 Dr. Art Rivas , DO Admit Provider Active Start: June 14, 2024 End: June 17, 2024 Dr. Art Rivas , Referring Provider Active Start: June 14, 2024 End: June 17, 2024 Dr. Art Rivas , DO Other Provider Active Start: June 14, 2024 End: June 17, 2024 Dr. Curt Henderson MD Attending Provider Active Start: June 14, 2024 End: June 17, 2024 Team Status: Active Member Role Status Dates Dr. Cole Cardona DO Primary Care Provider Active Start: June 14, 2024 Dr. Rodriguez Braxton , Emergency Provider Active Start: June 14, 2024 Dr. Art Rivas , DO Admit Provider Active Start: June 14, 2024 Dr. Art Rivas DO Referring Provider Active Start: June 14, 2024 Dr. Art Rivas , Other Provider Active Start: June 14, 2024 Dr. Curt Henderson MD Other Provider Active Sta rt: June 14, 2024 Dr. Stanislaw Naylor DO Attending Provider Active Start: June 14, 2024 Team Status: Active Member Role Status Dates Dr. Cole Cardona DO Primary Care Provider Active Start: June 15, 2024 Dr. Rodriguez Braxton , DO Emergency Provider Active Start: June 15, 2024 Dr. Art Rivas DO Admit Provider Active Start: June 15, 2024 Dr. Art Rivas , DO Referring Provider Active Start: June 15, 2024 Dr. Art Rivas , DO Other Provider Active Start: June 15, 2024 Dr. Curt Henderson MD Attending Provider Active Start: June 15, 2024 Dr. Curt Henderson MD Other Provider Active Sta rt: June 15, 2024 Team Status: Active Member Role Status Dates Dr. Cole Cardona , Primary Care Provider Active Start: June 16, 2024 Dr. Rodriguez Braxton , DO Emergency Provider Active Start: June 16, 2024 Dr. Art Rivas , DO Admit Provider Active Start: June 16, 2024 Dr. Art Rivas , DO Referring Provider Active Start: June 16, 2024 Dr. Art Rivas , DO Other Provider Active Start: June 16, 2024 Dr. Curt Henderson MD Attending Provider Active Start: June 16, 2024 Dr. Curt Henderson MD Other Provider Active Sta rt: June 16, 2024 Team Status: Active Member Role Status Dates Dr. Cole Cardona , DO Primary Care Provider Active Start: June 17, 2024 Dr. Rodriguez Braxton , DO Emergency Provider Active Start: June 17, 2024 Dr. Art Rivas , DO Admit Provider Active Start: June 17, 2024 Dr. Art Rivas , DO Referring Provider Active Start: June 17, 2024 Dr. Art Rivas , DO Other Provider Active Start: June 17, 2024 Dr. Curt Henderson MD Attending Provider Active Start: June 17, 2024 Dr. Curt Henderson MD Other Provider Active Sta rt: June 17, 2024 Team Status: Active Member Role Status Dates Dr. Cole Cardona , DO Primary Care Provider Active Start: June 13, 2024 Dr. Rodriugez Braxton , DO Emergency Provider Active Start: June 13, 2024 Dr. Art Rivas , DO Admit Provider Active Start: June 13, 2024 Dr. Art Rivas DO Attending Provider Active Start: June 13, 2024 Dr. Art Rivas , DO Other Provider Active Start: June 13, 2024 Team Status: Active Member Role Status Dates Dr. Cole Cardona , DO Primary Care Provider Active Start: June 14, 2024 Dr. Rodriguez Braxton , DO Emergency Provider Active Start: June 14, 2024 Dr. Art Rivas , DO Admit Provider Active Start: June 14, 2024 Dr. Art Rivas , DO Other Provider Active Start: June 14, 2024 Dr. Curt Henderson MD Attending Provider Active Start: June 14, 2024 Dr. Curt Henderson MD Other Provider Active Sta rt: June 14, 2024 Team Status: Active Member Role Status Dates Dr. Cole Cardona , DO Primary Care Provider Active Start: June 15, 2024 Dr. Rodriguez Braxton , DO Emergency Provider Active Start: June 15, 2024 Dr. Art Rivas , DO Admit Provider Active Start: June 15, 2024 Dr. Art Rivas , DO Other Provider Active Start: June 15, 2024 Dr. Curt Henderson MD Attending Provider Active Start: June 15, 2024 Dr. Curt Henderson MD Other Provider Active Sta rt: June 15, 2024 Team Status: Active Member Role Status Dates Dr. Cole Cardona , Primary Care Provider Active Start: June 16, 2024 Dr. Rodriguez Braxton , DO Emergency Provider Active Start: June 16, 2024 Dr. Art Rivas , DO Admit Provider Active Start: June 16, 2024 Dr. Art Rivas , DO Other Provider Active Start: June 16, 2024 Dr. Curt Henderson MD Attending Provider Active Start: June 16, 2024 Dr. uCrt Henderson MD Other Provider Active Sta rt: June 16, 2024 Team Status: Active Member Role Status Dates Dr. Cole Cardona , Primary Care Provider Active Start: June 17, 2024 Dr. Rodriguez Braxton , DO Emergency Provider Active Start: June 17, 2024 Dr. Art Rivas , DO Admit Provider Active Start: June 17, 2024 Dr. Art Rivas , DO Other Provider Active Start: June 17, 2024 Dr. Curt Henderson MD Attending Provider Active Start: June 17, 2024 Dr. Curt Henderson MD Other Provider Active Sta rt: June 17, 2024 Team Status: Inactive Member Role Status Dates Dr. Cole Cardona DO Primary Care Provider Active Start: June 23, 2024 End: June 23, 2024 Dr. Cole Cardona DO Attending Provider Active Start: June 23, 2024 End: June 23, 2024 Dr. Cole Cardona DO Referring Provider Active Start: June 23, 2024 End: June 23, 2024 Team Status: Inactive Member Role Status Dates Dr. Cole Cardona DO Primary Care Provider Active Start: June 30, 2024 End: July 20, 2024 Dr. Silvestre Garcia MD Admit Provider Active Star t: June 30, 2024 End: July 20, 2024 Dr. Silvestre Garcia MD Attending Provider Active Start: June 30, 2024 End: July 20, 2024 Team Status: Inactive Member Role Status Dates Dr. Cole Cardona DO Primary Care Provider Active Start: July 28, 2024 End: July 28, 2024 Dr. Cole Cardona DO Attending Provider Active Start: July 28, 2024 End: July 28, 2024 Dr. Cole Cardona DO Referring Provider Active Start: July 28, 2024 End: July 28, 2024 Team Status: Inactive Member Role Status Dates Dr. Cole Cardona DO Primary Care Provider Active Start: August 16, 2024 End: August 16, 2024 Dr. Silvestre Garcia MD Referring Provider Active Start: August 16, 2024 End: August 16, 2024 Dr. Brice David MD Attending Provider Active S tart: August 16, 2024 End: August 16, 2024 Team Status: Active Member Role/Relationship Status Dates Dr. Cole Cardona DO Primary Care Provider Active Team Status: Inactive Member Role/Relationship Status Dates Dr. Cole Cardona DO Primary Care Provider Active Start: May 18, 2024 End: May 18, 2024 Dr. Cole Cardona DO Attending Provider Active Start: May 18, 2024 End: May 18, 2024 Dr. Cole Cardona DO Referring Provider Active Start: May 18, 2024 End: May 18, 2024 Team Status: Inactive Member Role/Relationship Status Dates Dr. Cole Cardona DO Primary Care Provider Active Start: June 11, 2024 End: June 12, 2024 Dr. Rodriguez Braxton DO Attending Provider Active Start: June 11, 2024 End: June 12, 2024 Dr. Rodriguez Braxton DO Emergency Provider Active Start: June 11, 2024 End: June 12, 2024 Team Status: Active Member Role/Relationship Status Dates Dr. Cole Cardona DO Primary Care Provider Active Start: June 13, 2024 Dr. Rodriguez Braxton DO Emergency Provider Active Start: June 13, 2024 Dr. Art Rivas DO Admit Provider Active Start: June 13, 2024 Dr. Art Rivas DO Attending Provider Active Start: June 13, 2024 Dr. Art Rivas , DO Other Provider Active Start: June 13, 2024 Team Status: Active Member Role/Relationship Status Dates Dr. Cole R Brown , DO Primary Care Provider Active Start: June 14, 2024 Dr. Rodriguez Braxton , DO Emergency Provider Active Start: June 14, 2024 Dr. Art Rivas , DO Admit Provider Active Start: June 14, 2024 Dr. Art Rivas , DO Other Provider Active Start: June 14, 2024 Dr. Curt Henderson MD Attending Provider Active Start: June 14, 2024 Dr. Curt Henderson MD Other Provider Active Sta rt: June 14, 2024 Team Status: Inactive Member Role/Relationship Status Dates Dr. Cole Cardona , DO Primary Care Provider Active Start: June 14, 2024 End: June 17, 2024 Dr. Rodriguez Braxton , DO Emergency Provider Active Start: June 14, 2024 End: June 17, 2024 Dr. Art Rivas , DO Admit Provider Active Start: June 14, 2024 End: June 17, 2024 Dr. Art Rivas , DO Referring Provider Active Start: June 14, 2024 End: June 17, 2024 Dr. Art Rivas , DO Other Provider Active Start: June 14, 2024 End: June 17, 2024 Dr. Curt Henderson MD Attending Provider Active Start: June 14, 2024 End: June 17, 2024 Team Status: Active Member Role/Relationship Status Dates Dr. Cole Cardona , DO Primary Care Provider Active Start: June 14, 2024 Dr. Rodriguez Braxton , DO Emergency Provider Active Start: June 14, 2024 Dr. Art Rivas , DO Admit Provider Active Start: June 14, 2024 Dr. Art Rivas , DO Referring Provider Active Start: June 14, 2024 Dr. Art Rivas , DO Other Provider Active Start: June 14, 2024 Dr. Curt Henderson MD Other Provider Active Sta rt: June 14, 2024 Dr. Stanislaw Naylor , DO Attending Provider Active Start: June 14, 2024 Team Status: Active Member Role/Relationship Status Dates Dr. Cole Cardona , DO Primary Care Provider Active Start: June 15, 2024 Dr. Rodriguez Braxton , DO Emergency Provider Active Start: June 15, 2024 Dr. Art Rivas , DO Admit Provider Active Start: June 15, 2024 Dr. Art Rivas , DO Other Provider Active Start: June 15, 2024 Dr. Curt Henderson MD Attending Provider Active Start: June 15, 2024 Dr. Curt Henderson MD Other Provider Active Sta rt: June 15, 2024 Team Status: Active Member Role/Relationship Status Dates Dr. Cole Cardona DO Primary Care Provider Active Start: June 16, 2024 Dr. Rodriguez Braxton DO Emergency Provider Active Start: June 16, 2024 Dr. Art Rivas , Admit Provider Active Start: June 16, 2024 Dr. Art Rivas , Other Provider Active Start: June 16, 2024 Dr. Curt Henderson MD Attending Provider Active Start: June 16, 2024 Dr. Curt Henderson MD Other Provider Active Sta rt: June 16, 2024 Team Status: Active Member Role/Relationship Status Dates Dr. Cole Cardona DO Primary Care Provider Active Start: June 17, 2024 Dr. Rodriguez Braxton DO Emergency Provider Active Start: June 17, 2024 Dr. Art Rivas DO Admit Provider Active Start: June 17, 2024 Dr. Art Rivas DO Other Provider Active Start: June 17, 2024 Dr. Curt Henderson MD Attending Provider Active Start: June 17, 2024 Dr. Curt Henderson MD Other Provider Active Sta rt: June 17, 2024 Team Status: Inactive Member Role/Relationship Status Dates Dr. Cole Cardona DO Primary Care Provider Active Start: June 23, 2024 End: June 23, 2024 Dr. Cole Cardona DO Attending Provider Active Start: June 23, 2024 End: June 23, 2024 Dr. Cole Cardona DO Referring Provider Active Start: June 23, 2024 End: June 23, 2024 Team Status: Inactive Member Role/Relationship Status Dates Dr. Cole Cardona DO Primary Care Provider Active Start: June 30, 2024 End: July 20, 2024 Dr. Silvestre Garcia MD Admit Provider Active Star t: June 30, 2024 End: July 20, 2024 Dr. Silvestre Garcia MD Attending Provider Active Start: June 30, 2024 End: July 20, 2024 Team Status: Inactive Member Role/Relationship Status Dates Dr. Cole Cardona DO Primary Care Provider Active Start: July 28, 2024 End: July 28, 2024 Dr. Cole Cardona DO Attending Provider Active Start: July 28, 2024 End: July 28, 2024 Dr. Cole Cardona DO Referring Provider Active Start: July 28, 2024 End: July 28, 2024 Team Status: Inactive Member Role/Relationship Status Dates Dr. Cole Cardona DO Primary Care Provider Active Start: August 16, 2024 End: August 16, 2024 Dr. iSlvestre Garcia MD Referring Provider Active Start: August 16, 2024 End: August 16, 2024 Dr. Brice David MD Attending Provider Active S tart: August 16, 2024 End: August 16, 2024 Team Status: Inactive Member Role/Relationship Status Dates Dr. Cole Cardona DO Primary Care Provider Active Start: August 24, 2024 End: August 24, 2024 Dr. Cole Cardona DO Referring Provider Active Start: August 24, 2024 End: August 24, 2024 Dr. Lew Roblero DO Attending Provider Active Start: August 24, 2024 End: August 24, 2024 Team Status: Inactive Member Role/Relationship Status Dates Dr. Cole Cardona DO Primary Care Provider Active Start: June 11, 2024 End: June 12, 2024 Dr. Rodriguez Braxton , Attending Provider Active Start: June 11, 2024 End: June 12, 2024 Dr. Rodriguez Braxton , Emergency Provider Active Start: June 11, 2024 End: June 12, 2024 Team Status: Active Member Role/Relationship Status Dates Dr. Cole Cardona DO Primary Care Provider Active Start: June 13, 2024 Dr. Rodriguez Braxton , DO Emergency Provider Active Start: June 13, 2024 Dr. Art Rivas , DO Admit Provider Active Start: June 13, 2024 Dr. Art Rivas , DO Attending Provider Active Start: June 13, 2024 Dr. Art Rivas , DO Other Provider Active Start: June 13, 2024 Team Status: Active Member Role/Relationship Status Dates Dr. Cole Cardona DO Primary Care Provider Active Start: June 14, 2024 Dr. Rodriguez Braxton , DO Emergency Provider Active Start: June 14, 2024 Dr. Art Rivas , DO Admit Provider Active Start: June 14, 2024 Dr. Art Rivas , DO Other Provider Active Start: June 14, 2024 Dr. Curt Henedrson MD Attending Provider Active Start: June 14, 2024 Dr. Curt Henderson MD Other Provider Active Sta rt: June 14, 2024 Team Status: Inactive Member Role/Relationship Status Dates Dr. Cole Cardona , DO Primary Care Provider Active Start: June 14, 2024 End: June 17, 2024 Dr. Rodriguez Braxton , DO Emergency Provider Active Start: June 14, 2024 End: June 17, 2024 Dr. Art Rivas , DO Admit Provider Active Start: June 14, 2024 End: June 17, 2024 Dr. Art Rivas , DO Referring Provider Active Start: June 14, 2024 End: June 17, 2024 Dr. Art Rivas , DO Other Provider Active Start: June 14, 2024 End: June 17, 2024 Dr. Curt Henderson MD Attending Provider Active Start: June 14, 2024 End: June 17, 2024 Team Status: Active Member Role/Relationship Status Dates Dr. Cole Cardona , DO Primary Care Provider Active Start: June 14, 2024 Dr. Rodriguez Braxton , DO Emergency Provider Active Start: June 14, 2024 Dr. Art Rivas , DO Admit Provider Active Start: June 14, 2024 Dr. Art Rivas DO Referring Provider Active Start: June 14, 2024 Dr. Art Rivas , DO Other Provider Active Start: June 14, 2024 Dr. Curt Henderson MD Other Provider Active Sta rt: June 14, 2024 Dr. Stanislaw Naylor , DO Attending Provider Active Start: June 14, 2024 Team Status: Active Member Role/Relationship Status Dates Dr. Cole Cardona , DO Primary Care Provider Active Start: June 15, 2024 Dr. Rodriguez Braxton , DO Emergency Provider Active Start: June 15, 2024 Dr. Art Rivas , DO Admit Provider Active Start: June 15, 2024 Dr. Art Rivas , DO Other Provider Active Start: June 15, 2024 Dr. Curt Henderson MD Attending Provider Active Start: June 15, 2024 Dr. Curt Henderson MD Other Provider Active Sta rt: June 15, 2024 Team Status: Active Member Role/Relationship Status Dates Dr. Cole Cardona , DO Primary Care Provider Active Start: June 16, 2024 Dr. Rodriguez Braxton , DO Emergency Provider Active Start: June 16, 2024 Dr. Art Rivas , DO Admit Provider Active Start: June 16, 2024 Dr. Art Rivas , DO Other Provider Active Start: June 16, 2024 Dr. Curt Henderson MD Attending Provider Active Start: June 16, 2024 Dr. Curt Henderson MD Other Provider Active Sta rt: June 16, 2024 Team Status: Active Member Role/Relationship Status Dates Dr. Cole Cardona DO Primary Care Provider Active Start: June 17, 2024 Dr. Rodriguez Braxton , DO Emergency Provider Active Start: June 17, 2024 Dr. Art Rivas , DO Admit Provider Active Start: June 17, 2024 Dr. Art Rivas , Other Provider Active Start: June 17, 2024 Dr. Curt Henderson MD Attending Provider Active Start: June 17, 2024 Dr. Curt Henderson MD Other Provider Active Sta rt: June 17, 2024 Team Status: Inactive Member Role/Relationship Status Dates Dr. Cole Cardona DO Primary Care Provider Active Start: June 23, 2024 End: June 23, 2024 Dr. Cole Cardona DO Attending Provider Active Start: June 23, 2024 End: June 23, 2024 Dr. Cole Cardona DO Referring Provider Active Start: June 23, 2024 End: June 23, 2024 Team Status: Inactive Member Role/Relationship Status Dates Dr. Cole Cardona DO Primary Care Provider Active Start: June 30, 2024 End: July 20, 2024 Dr. Silvestre Garcia MD Admit Provider Active Star t: June 30, 2024 End: July 20, 2024 Dr. Silvestre Garcia MD Attending Provider Active Start: June 30, 2024 End: July 20, 2024 Team Status: Inactive Member Role/Relationship Status Dates Dr. Cole Cardona DO Primary Care Provider Active Start: July 28, 2024 End: July 28, 2024 Dr. Cole Cardona DO Attending Provider Active Start: July 28, 2024 End: July 28, 2024 Dr. Cole Cardona DO Referring Provider Active Start: July 28, 2024 End: July 28, 2024 Team Status: Inactive Member Role/Relationship Status Dates Dr. Cole Cardona DO Primary Care Provider Active Start: August 16, 2024 End: August 16, 2024 Dr. Cole Cardona DO Referring Provider Active Start: August 16, 2024 End: August 16, 2024 Dr. Brice David MD Attending Provider Active S tart: August 16, 2024 End: August 16, 2024 Team Status: Inactive Member Role/Relationship Status Dates Dr. Cole Cardona DO Primary Care Provider Active Start: August 24, 2024 End: August 24, 2024 Dr. Cole Cardona DO Referring Provider Active Start: August 24, 2024 End: August 24, 2024 Dr. Lew Roblero DO Attending Provider Active Start: August 24, 2024 End: August 24, 2024 Team Status: Active Member Role/Relationship Status Dates Dr. Cole Cardona DO Primary Care Provider Active Start: August 31, 2024 Dr. Lew Roblero DO Attending Provider Active Start: August 31, 2024 Team Status: Active Member Role/Relationship Status Dates Dr. Cole Cardona DO Primary Care Provider Active Start: September 07, 2024 Dr. Lew Roblero DO Attending Provider Active Start: September 07, 2024 Team Status: Inactive Member Role/Relationship Status Dates Dr. Cole Cardona DO Primary Care Provider Active Start: September 08, 2024 End: September 08, 2024 Dr. Brice David MD Attending Provider Active S tart: September 08, 2024 End: September 08, 2024 Dr. Brice David MD Referring Provider Active S tart: September 08, 2024 End: September 08, 2024 Team Status: Active Member Role/Relationship Status Dates Dr. Cole Cardona DO Primary Care Provider Active Start: September 08, 2024 Dr. Lew Roblero DO Attending Provider Active Start: September 08, 2024 Team Status: Active Member Role/Relationship Status Dates Dr. Cole Cardona DO Primary Care Provider Active Start: September 09, 2024 Dr. Lew Roblero DO Attending Provider Active Start: September 09, 2024 Team Status: Active Member Role/Relationship Status Dates Dr. Cole Cardona DO Primary Care Provider Active Start: September 22, 2024 Dr. Cole Cardona DO Referring Provider Active Start: September 22, 2024 Dr. Brice David MD Attending Provider Active S tart: September 22, 2024 Team Status: Inactive Member Role/Relationship Status Dates Dr. Cole Cardona DO Primary Care Provider Active Start: September 22, 2024 End: September 22, 2024 Dr. Cole Cardona DO Referring Provider Active Start: September 22, 2024 End: September 22, 2024 Dr. Lew Roblero DO Attending Provider Active Start: September 22, 2024 End: September 22, 2024 Team Status: Inactive Member Role/Relationship Status Dates Dr. Cole Cardona DO Primary Care Provider Active Start: September 22, 2024 End: September 22, 2024 Dr. Cole Cardona DO Referring Provider Active Start: September 22, 2024 End: September 22, 2024 Dr. Brice David MD Attending Provider Active S tart: September 22, 2024 End: September 22, 2024 Team Status: Active Member Role/Relationship Status Dates Dr. Cole Cardona DO Primary Care Provider Active Start: September 22, 2024 Dr. Lew Roblero DO Attending Provider Active Start: September 22, 2024 Dr. Lew Roblero DO Referring Provider Active Start: September 22, 2024 Team Status: Active Member Role/Relationship Status Dates Dr. Cole Cardona DO Primary Care Provider Active Start: September 22, 2024 Dr. Lew Roblero DO Attending Provider Active Start: September 22, 2024 Team Status: Active Member Role/Relationship Status Dates Dr. Cole Cardona DO Primary Care Provider Active Start: September 23, 2024 Dr. Lew Roblero DO Attending Provider Active Start: September 23, 2024 Team Status: Active Member Role/Relationship Status Dates Dr. Cole Cardona DO Primary Care Provider Active Start: September 29, 2024 Dr. Lew Roblero DO Attending Provider Active Start: September 29, 2024 Dr. Lew Roblero DO Referring Provider Active Start: September 29, 2024 Team Status: Inactive Member Role/Relationship Status Dates Dr. Cole Cardona DO Primary Care Provider Active Start: September 29, 2024 End: September 29, 2024 Dr. Cole Cardona DO Referring Provider Active Start: September 29, 2024 End: September 29, 2024 Dr. Lew Annika , DO Attending Provider Active Start: September 29, 2024 End: September 29, 2024 INFORMATION SOURCE (unrecogn ized section and content) DATE CREATED AUTHOR 06/08/2022 [facility] ([place]) DATE CREATED AUTHOR AUTHOR'S ORGANIZ ATION 05/14/2023 [facility] DATE CREATED AUTHOR AUTHOR'S ORGANIZ ATION 06/17/2024 [facility] DATE CREATED AUTHOR AUTHOR'S ORGANIZ ATION 07/30/2024 [facility] DATE CREATED AUTHOR AUTHOR'S ORGANIZ ATION 09/27/2024 [facility] DATE CREATED AUTHOR AUTHOR'S ORGANIZ ATION 10/08/2024 [facility] Source Comments (unrecognize d section and content) In the event this informatio n is protected by the Federal Confidentiality of Alcohol and Drug Abuse Patient Records regulations: The Federal rules restrict any use of the information to criminally investigate or prosecute any alcohol or drug abuse patient.[facility] the event this information is protected by the Federal Confidentiality of Alcohol and Drug Abuse Patient Records regulations: The Federal rules restrict any use of the information to criminally investigate or prosecute any alcohol or drug abuse patient.[facility] the event this information is protected by the Federal Confidentiality of Alcohol and Drug Abuse Patient Records regulations: The Federal rules restrict any use of the information to criminally investigate or prosecute any alcohol or drug abuse patient.[facility] Reason for Visit (unrecogniz ed section and content) Reason Comments Cough Cough x 6-8 weeks FOR RECORDS PERTAINING TO PATIENTS WHO ARE OR HAVE BEEN ENROLLED IN A CHEMICAL DEPENDENCY/SUBSTANCEABUSE PROGRAM, SOME INFORMATION MAY BE OMITTED. This clinical summary was aggregated from multiple sources. Caution should be exercised in using it in the provision of clinical care. This summary normalizes information from multiple sources, and as a consequence, information in this document may materially change the coding, format and clinical context of patient data. In addition, data may be omitted in some cases. CLINICAL DECISIONS SHOULD BE BASED ON THE PRIMARY CLINICAL RECORDS. [facility]. provides no warranty or guarantee of the accuracy or completeness of information in this document."
--- NOTE | 2024-10-10 20:56 | EX.ED.DYSGE1 ---
HPI History of Present Illness Chief Complaint: Chest Other Informant: patient and family Narrative Narrative: Brought in by daughter from assisted [facility] for chest x-ray reporting left pleural effusion. Patient with cough symptoms. Report increasing weakness over last couple days. This been no falls. She had some urine symptoms outpatient urine positive for infection started on Cipro. However due to chest x-ray pleural effusion sent to the ED. She denies any exertional dyspnea. Per daughter reported she had had pneumonia in the past and she thinks they are concerned of this. She was brought by private vehicle. 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 Prior similar symptoms: Yes PFSH PFSH Medical History DVT (deep venous thrombosis) Pneumonia Osteoarthritis High triglycerides High cholesterol Arthritis Home Medications ?Medication ?Instructions ?Recorded ?Last Taken ?Type blood pressure monitor #1 ea 06/02/23 Unknown Rx handicap placard #1 ea 05/26/24 Unknown Rx amlodipine 5 mg tablet 5 mg PO DAILY 30 days #30 tabs 07/20/24 Unknown Rx atorvastatin 40 mg tablet 40 mg PO QHS 30 days #30 tabs 07/20/24 Unknown Rx chlordiazepoxide HCl 5 mg capsule 10 mg (2 x 5 mg) PO Q12H PRN 07/20/24 Unknown Rx anxiety 30 days #120 caps meclizine 25 mg tablet 25 mg PO QAM 30 days #30 tabs 07/20/24 Unknown Rx (Travel-Ease (meclizine)) potassium chloride 20 mEq 20 meq PO DAILYCM 30 days #30 tabs 07/20/24 Unknown Rx tablet,extended release(part/cryst) venlafaxine 37.5 mg 37.5 mg PO DAILY 30 days #30 caps 07/20/24 Unknown Rx capsule,extended release 24 hr apixaban 2.5 mg tablet 2.5 mg PO BID 30 days #60 tabs 07/27/24 Unknown Rx nystatin 100,000 unit/gram topical 1 applic topical QDAY #30 grams 07/28/24 Unknown Rx cream acetaminophen 325 mg tablet 650 mg PO Q4H PRN pain 08/16/24 Unknown History ferrous sulfate 325 mg (65 mg 325 mg PO BID 08/16/24 Unknown History iron) tablet (FeroSul) loperamide 2 mg capsule 2 mg PO PRN loose stool 08/16/24 Unknown History magnesium hydroxide 400 mg/5 mL 30 ml PO QDAY PRN constipation 08/16/24 Unknown History oral suspension (Milk of Magnesia) cefdinir 300 mg capsule 300 mg PO Q12H #14 caps 10/10/24 Unknown Rx Allergy/AdvReac Type Severity Reaction Status Date / Time prednisone Allergy Unknown Rash Verified 10/10/24 19:11 diphenhydramine (From Allergy Rash Verified 10/10/24 19:11 Benadryl) Influenza Virus Vaccines AdvReac Intermediate Other Verified 10/10/24 19:11 (flu vaccine) Family History Mother Arthritis Brother Myocardial infarction Father Heart disease Surgical History History of bilateral knee replacement History of umbilical hernia repair History of tonsillectomy Social History household members: none Smoking Status: Never smoker alcohol intake: never substance use type: does not use what type of physical activity do you participate in: swimming ROS ROS ED Constitutional Constitutional ED: Denies fever(s) Cardiovascular Cardiovascular: Denies chest pain Respiratory/Chest Respiratory/Chest: Reports cough Gastrointestinal Gastrointestinal: Denies diarrhea or vomiting Musculoskeletal Musculoskeletal: Denies none Integumentary Denies rash or wounds Neurologic Neurologic: Reports weakness EXAM Physical Exam Const Vital Signs: 10/10/24 19:11 10/10/24 19:12 10/10/24 19:14 Temperature 98.9 F 98.9 F Temperature Source Temporal Oral Pulse Rate 119 H 113 H 113 H Respiratory Rate 14 14 Respiratory Effort Blood Pressure 112/70 112/70 Blood Pressure Mean 84 84 Pulse Ox 98 98 Oxygen Delivery Method Room Air Room Air 10/10/24 19:34 10/10/24 20:11 10/10/24 20:13 Temperature 98.9 F Temperature Source Oral Pulse Rate 118 H Respiratory Rate 18 Respiratory Effort Normal Non-Labored Blood Pressure 109/97 H 108/73 Blood Pressure Mean 101 84 Pulse Ox 91 Oxygen Delivery Method Room Air 10/10/24 21:00 10/10/24 21:41 Temperature 98.9 F Temperature Source Pulse Rate 118 H 118 H Respiratory Rate 22 H 22 H Respiratory Effort Blood Pressure 112/73 112/73 Blood Pressure Mean 86 86 Pulse Ox 91 Oxygen Delivery Method Positive well nourished and well developed General Appearance ED: well developed and NAD HEENT Reports moist mucous membranes normocephalic and atraumatic Eyes General Eye ED: Yes normal appearance of both eyes Neck full ROM Chest Wall Chest: Negative for tenderness Resp normal respiratory effort and normal air movement Resp Narrative: No diminished breath sounds at bases. Effort and Inspection: symmetric chest movement; Negative for respiratory distress Cardio regular rhythm and no murmurs Rate: tachycardic Peripheral Pulses: pulses 2+ throughout GI normal to inspection, nondistended, normoactive bowel sounds and non-tender Palpation: Negative for guarding or rebound tenderness present Extremity Extremity Narrative: Hyperostosis right shoulder Decreased movement. Soft compartments. Pulses intact distally. General Extremety ED: Negative for edema or tenderness General Extremity: Negative for edema Neuro oriented x3 and no sensory deficits noted Sensorium / Orientation: awake and alert Skin no rashes or lesions noted and no wounds MDM MDM MDM Narrative Medical decision making narrative: Interventions / MDM: Differential diagnosis: Pleural effusion, pneumonia, history of disseminated cancer Diagnosis considered but do not suspect: N/A My EKG interpretation: N/A Imaging independently reviewed and interpreted by myself: 1 view chest x-ray: Left pleural effusion with superimposed consolidation per radiology. External documents reviewed: Outpatient oncology records. Radiation therapy for palliative treatment. She did not want aggressive treatment. Test considered but not ordered:N/A ED course: Review of the report only notes left pleural effusion did not note the size she did have breath sounds down to the bases. She is in no distress. Pulse ox normal. Slightly tachycardic sounding regular on exam. X-ray with Pleural effusion will underlying consolidation. Patient not hypoxic no respiratory distress. I will add cefdinir to her antibiotic regimen. Outpatient follow-up with her doctors. Re-evaluation: stable Disposition discussed with patient/family/significant other: Patient and family Case discussed with consulting clinician: N/A This note was generated with [employer] software. It may contain incorrect words, spelling, and punctuation that were not noted in checking the note before signing. Radiography Diagnostic Testing: Clinical Impression(s) from Imaging Studies Chest X-Ray 10/10/24 20:30 IMPRESSION: Layering left pleural effusion with likely superimposed consolidation of the left lung base. Reading Location: [facility] Discharge Plan Triage Chief Complaint: Chest Other ED Provider: Humza Lion Dx/Rx/DC Orders Clinical Impression: Pneumonia, Disseminated cancer, Pleural effusion Instructions: ED Pleural Effusion, ED Pneumonia (Adult) Prescriptions: New cefdinir 300 mg capsule 300 mg PO Q12H Qty: 14 0RF No Action (DME) blood pressure monitor Kit See Rx Instructions .ROUTE .MEDSUPPLY Qty: 1 0RF Rx Instructions: As directed ferrous sulfate [FeroSul] 325 mg (65 mg iron) tablet 325 mg PO BID loperamide 2 mg capsule 2 mg PO PRN (Reason: loose stool) Rx Instructions: one cap after first and each additional loose stool. Do not exceed 8 tabs (16 mg) in 24hr period. magnesium hydroxide [Milk of Magnesia] 400 mg/5 mL suspension 30 ml PO QDAY PRN (Reason: constipation) acetaminophen 325 mg tablet 650 mg PO Q4H PRN (Reason: pain) nystatin 100,000 unit/gram cream 1 applic topical QDAY Qty: 30 1RF atorvastatin 40 mg Tablet 40 mg PO QHS 30 Days Qty: 30 0RF amlodipine 5 mg Tablet 5 mg PO DAILY 30 Days Qty: 30 0RF chlordiazepoxide HCl 5 mg Capsule 10 mg PO Q12H PRN (Reason: anxiety) 30 Days Qty: 120 0RF venlafaxine 37.5 mg Capsule,Extended Release 24hr 37.5 mg PO DAILY 30 Days Qty: 30 0RF potassium chloride 20 mEq Tablet,Er Particles/Crystals 20 meq PO DAILYCM 30 Days Qty: 30 0RF meclizine [Travel-Ease (meclizine)] 25 mg Tablet 25 mg PO QAM 30 Days Qty: 30 0RF (DME) handicap placard See Rx Instructions .Route .MEDSUPPLY Qty: 1 0RF Rx Instructions: Duration 5 years, difficulty with ambualation. apixaban 2.5 mg tablet 2.5 mg PO BID 30 Days Qty: 60 0RF Primary Care Provider: Cole Shipley Referrals: Cole Shipley, DO [Primary Care Provider] - 3-5 Days Activity Restrictions/Additional Instructions: Chest x-ray obtained in the ED small layering pleural effusion with consolidation. No large effusions. Take antibiotics as prescribed. Continue your Cipro also as you are being treated for UTI will have additional coverage for pneumonia. Perfusion not large enough to warrant any thoracentesis. You are not hypoxic and are not in any respiratory distress. Follow-up with your doctor. Print Language: Amharic Disposition Disposition: Home, Self Care Discharge Date/Time: 10/10/24 21:43
== END 2024-10-10 21:43 | disposition home or self-care (01) ==
PROVIDERS: Emergency Provider Emergency Medicine; PCP Family Medicine; Visit Provider Emergency Medicine
DX: J18.9 Pneumonia, unspecified organism (principal); C80.0 Disseminated malignant neoplasm, unspecified; J90 Pleural effusion, not elsewhere classified; E78.00 Pure hypercholesterolemia, unspecified; Z79.899 Other long term (current) drug therapy
CPT/HCPCS: 71045; 99283; A4216